=== PATIENT | male | born 1960 | race Caucasian/White ===

== ENCOUNTER 2023-12-16 14:45 | Inpatient (IN) | payer OTHER, SELFPAY ==
[2023-12-16] VITALS (30 sets, daily range): BP systolic 160–204; BP diastolic 84–121; PULSE 70–96; RESP 0–18; TEMP 36.2–36.7; O2SAT 94–98; BMI 31.2; BMI 31.3
--- NOTE | 2023-12-16 | CRLHL7_ITS ---
For Patients: As a result of the Century Cures Act, medical imaging exams and procedure reports are released immediately into your electronic medical record. You may view this report before your referring provider. If you have questions, please contact your health care provider. CLINICAL HISTORY: Imbalance; acute neurological deficit. TECHNIQUE: Standard helical CT image acquisition through the neck was performed after intravenous contrast bolus enhancement. 3D and MIP reconstructions were performed at a separate workstation and permanently archived. COMPARISON: None available. FINDINGS: The origins of the great vessels from the aortic arch are patent. The common carotid arteries are patent. There is mild (less than 50 percent) atherosclerotic stenoses of the bilateral proximal ICAs by NASCET criteria. The more distal cervical ICAs are patent. The origins and cervical segments of the vertebral arteries are patent. IMPRESSION: Mild (less than 50 percent) atherosclerotic stenoses of the bilateral proximal ICAs by NASCET criteria. Please note that all CT scans at this facility use dose modulation, iterative reconstruction, and/or weight-based dosing when appropriate to reduce radiation dose to as low as reasonably achievable. Dictated by Nicholas Chavira MD @ 12/17/2023 10:31:13 AM (Electronically Signed)
--- NOTE | 2023-12-16 | CRLHL7_ITS ---
For Patients: As a result of the Century Cures Act, medical imaging exams and procedure reports are released immediately into your electronic medical record. You may view this report before your referring provider. If you have questions, please contact your health care provider. CLINICAL HISTORY: Imbalance; acute neurological deficit. TECHNIQUE: Standard helical CT image acquisition through the head following the administration of intravenous contrast was performed. 3D and MIP reconstructions were performed at a separate workstation and permanently archived. COMPARISON: None available. FINDINGS: No intracranial proximal large vessel occlusion or flow-limiting luminal stenosis. No evidence of cerebral aneurysm. No findings to suggest an arterial-venous shunting lesion. The major dural venous sinuses and deep venous system are patent. IMPRESSION: No intracranial proximal large vessel occlusion, flow-limiting luminal stenosis, or cerebral aneurysm. Please note that all CT scans at this facility use dose modulation, iterative reconstruction, and/or weight-based dosing when appropriate to reduce radiation dose to as low as reasonably achievable. Dictated by Nicholas Chavira MD @ 12/17/2023 10:32:45 AM (Electronically Signed)
--- NOTE | 2023-12-16 | CRLHL7_ITS ---
For Patients: As a result of the Century Cures Act, medical imaging exams and procedure reports are released immediately into your electronic medical record. You may view this report before your referring provider. If you have questions, please contact your health care provider. Indication : Balance issues. Technique : CT of the brain without intravenous contrast. Comparison: None relevant available at the time of interpretation. Findings: No acute blurring of the vazquez-white differentiation. There is no intracranial hemorrhage. The ventricles are proportionate to the cerebral sulci. The 4th ventricle is midline. Basal cisterns appear patent. No abnormal extra-axial fluid collection identified. Mild parenchymal volume loss. There is mild patchy periventricular hypodensity, favored to represent chronic ischemic microvascular disease. There is no intracranial mass, mass effect or midline shift identified. No depressed calvarial fracture. Impression: 1. No acute intracranial process. 2. Mild chronic ischemic microvascular disease. The above findings were communicated over the telephone with Dr. Wagoner by Dr. Carlos at 1525 hours on 12/16/2023. Please note that all CT scans at this facility use dose modulation, iterative reconstruction, and/or weight-based dosing when appropriate to reduce radiation dose to as low as reasonably achievable. Dictated by Benito Carlos MD @ 12/16/2023 3:28:15 PM (Electronically Signed)
--- NOTE | 2023-12-16 15:01 | ED.NEUROSD ---
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 Isak was taking his dogs out and had sat down on a bench and when he got up he had weakness in his left leg. His balance seemed to be off as well according to his significant other. The left sided symptoms persist and it is now approximately 5-1/2 hours since initial onset. He denies a headache visual changes chest pain shortness of breath loss of bowel or bladder control. He does not have any back pain or headache. He has not had any recent injury to his back. Related Data Home Medications ?Medication ?Instructions ?Recorded ?Confirmed cetirizine 10 mg capsule (Zyrtec) 10 mg PO QDAY PRN 03/06/22 03/06/22 levothyroxine 100 mcg capsule 100 mcg PO QDAY 03/06/22 03/06/22 liothyronine 5 mcg tablet 5 mcg PO QDAY 03/06/22 03/06/22 Allergies Allergy/AdvReac Type Severity Reaction Status Date / Time hydrocodone Allergy itch Verified 12/16/23 15:07 Review of Systems Status of ROS: Reports: 10 or more systems reviewed and unremarkable except as noted in History and below [facility] Medical History (Updated 12/16/23 @ 18:25 by Annie Cisneros PA-C) History of gastrostomy tube placement Squamous cell carcinoma Arthritis ?M19.90 - Unspecified osteoarthritis, unspecified site (ICD-10) Hypothyroid ?E03.9 - Hypothyroidism, unspecified (ICD-10) Surgical History History of tonsillectomy ?Z90.89 - Acquired absence of other organs (ICD-10) History of right hip replacement ?Z96.641 - Presence of right artificial hip joint (ICD-10) H/O hernia repair ?Z98.890 - Other specified postprocedural states (ICD-10) ?Z87.19 - Personal history of other diseases of the digestive system (ICD-10) Social History What is your current living situation?: I presently have a place to live Problems where you live: no known problems Problems where you live details: none In the past 12 months, utilities in danger of being shut off: no In past 12 months, lack of transportation kept you from medical appts, meetings, work, or getting things needed for daily living: no In the past 12 mos, have been you worried that your food would run out before you had money to buy more?: never true In the past 12 mos, the food you bought just didn't last and you didn't have money to buy more?: never true Smoking Status: Never smoker How often do you have a drink containing alcohol: 2-3 times a week Alcohol type: hard liquor How often do you have six or more drinks on one occasion: Weekly AUDIT-C Alcohol total score: 6 Non-prescribed substance use: denies use How often does anyone, including family, friends and others, physically hurt you: never How often does anyone, including family, friends and others, insult or talk down to you: never How often does anyone, including family, friends and others, threaten you with harm: never How often does anyone, including family, friends and others, scream or curse at you: never service: Yes Exam Narrative: Exam Narrative: Alert and oriented. No acute distress. EOM is full. Face symmetrical. Neck with multiple scars. Heart with a regular rate and rhythm. Lungs are clear bilaterally. Abdomen is soft and nontender. Lower extremities are with good pedal pulses and are warm. Upper extremity strength intact 5/5. Lower extremity plantar flexion decreased strength 4/5. Subtle ataxia of left leg with heel to sebastian. No unusual calf swelling. Palpation of lower back without discomfort. NIH SS 2 Const: Vital Signs, click to edit/add: Vital Signs - 24 hr 12/16/23 14:50 12/16/23 14:51 12/16/23 14:54 Temperature 97.3 F L Pulse Rate 90 92 Pulse Rate [Pulse Oximeter] 88 Respiratory Rate 18 Blood Pressure 204/121 H Blood Pressure [Ri ght Upper Arm] 204/121 H Pulse Oximetry 96 95 95 Oxygen Delivery Me thod Room Air 12/16/23 15:08 12/16/23 15:12 12/16/23 15:15 Temperature Pulse Rate 96 88 88 Pulse Rate [Pulse Oximeter] Respiratory Rate Blood Pressure 198/114 H Blood Pressure [Ri ght Upper Arm] Pulse Oximetry 97 95 96 Oxygen Delivery Me thod 12/16/23 15:16 12/16/23 15:22 12/16/23 15:23 Temperature Pulse Rate 89 83 85 Pulse Rate [Pulse Oximeter] Respiratory Rate Blood Pressure 180/101 H 175/103 H Blood Pressure [Ri ght Upper Arm] Pulse Oximetry 96 94 94 Oxygen Delivery Me thod 12/16/23 15:30 12/16/23 15:31 12/16/23 15:45 Temperature Pulse Rate 80 78 75 Pulse Rate [Pulse Oximeter] Respiratory Rate 0 L Blood Pressure 169/92 H Blood Pressure [Ri ght Upper Arm] Pulse Oximetry 94 95 96 Oxygen Delivery Me thod Room Air 12/16/23 15:46 12/16/23 15:48 12/16/23 16:00 Temperature Pulse Rate 75 75 73 Pulse Rate [Pulse Oximeter] Respiratory Rate 16 Blood Pressure 188/108 H Blood Pressure [Ri ght Upper Arm] Pulse Oximetry 96 94 95 Oxygen Delivery Me thod Room Air 12/16/23 16:01 12/16/23 16:16 12/16/23 16:24 Temperature Pulse Rate 78 77 Pulse Rate [Pulse Oximeter] Respiratory Rate Blood Pressure 168/84 H 188/107 H Blood Pressure [Ri ght Upper Arm] Pulse Oximetry 96 98 Oxygen Delivery Me thod 12/16/23 16:25 12/16/23 16:30 12/16/23 16:32 Temperature Pulse Rate 75 77 73 Pulse Rate [Pulse Oximeter] Respiratory Rate Blood Pressure 185/106 H 172/96 H Blood Pressure [Ri ght Upper Arm] Pulse Oximetry 97 95 96 Oxygen Delivery Me thod 12/16/23 16:45 12/16/23 16:46 Temperature Pulse Rate 80 82 Pulse Rate [Pulse Oximeter] Respiratory Rate Blood Pressure 160/121 H Blood Pressure [Ri ght Upper Arm] Pulse Oximetry 97 95 Oxygen Delivery Me thod Documenting provider has reviewed patient's vital signs: yes Course Course ED Course: Differential diagnosis does include CVA, metastases, intracranial bleed, migraine,. Patient seen immediately and immediately went to CT. CT/CTA ordered. Although outside of the 4-1/2 hour window patient still could be a candidate for thrombectomy if appropriate. Upon return, patient be placed on monitor, EKG done. CBC, comprehensive, CRP, urinalysis ordered. Saline lock placed. Spoke to Dr. Wagoner neurology does not feel that the symptoms fit with any specific distribution in the brain but notes that patient should be admitted for MRI tomorrow. Will give patient aspirin [address] is without evidence of bleed. Reevaluation(s) Reevaluation #1: Head CT without evidence of bleed per Radiology report. Aspirin [address] Wagoner, neurologist, did see patient via tele neurology screen. At this time he does suggest admission with MRI of the brain and lumbar spine tomorrow. Laboratory values reassuring with a normal white count hemoglobin electrolyte panel and CRP. Urinalysis normal. Vital Signs Vital signs: Initial Vital Signs Pulse Rate 90 12/16/23 14:50 Blood Pressure 204/121 H 12/16/23 14:50 Blood Pressure Mean 148 H 12/16/23 14:50 Pulse Oximetry 96 12/16/23 14:50 Vital Signs Pulse Rate 90 12/16/23 14:50 Blood Pressure 204/121 H 12/16/23 14:50 Pulse Oximetry 96 12/16/23 14:50 Temperature 98 F 12/16/23 19:45 Pulse Rate 77 12/16/23 19:48 Respiratory Rate 16 12/16/23 19:45 Blood Pressure 179/105 H 12/16/23 19:45 Pulse Oximetry 95 12/16/23 19:45 Oxygen Delivery Method Room Air 12/16/23 19:45 Medications Administered Medications: Generic Name Dose Route Start Last Admin Trade Name Freq PRN Reason Stop Dose Admin Sodium Chloride 5 ml 12/16/23 21:00 12/16/23 21:12 Sodium Chloride 0.9 % (Flush) 10 Ml Syringe IVF 5 ml BID AARTI Administration Discontinued Medications Generic Name Dose Route Start Last Admin Trade Name Freq PRN Reason Stop Dose Admin Aspirin 324 mg 12/16/23 15:59 12/16/23 17:07 Aspirin 81 Mg Tab.Chew PO 12/16/23 16:00 324 mg ONCE ONE Administration MDM - Neuro Symptoms/Deficit MDM Narrative Medical decision making narrative: 1. Left-sided neurological complaints-patient had the sudden onset of left leg numbness posterior to foot with weakness of plantar flexion in associated with a tingling or numb feeling in the left arm at approximately 0930 hours. He presented after 5-1/2 hours of symptoms and went immediately to CT which was reassuring. CT CTA without evidence of acute stroke. However given symptoms neurology did see patient and have suggested MRI of the brain and lumbar spine tomorrow. Aspirin 325 mg p.o. given and patient will be admitted under the care of hospitalist ALLAN Cisneros. 2. Status post squamous cell carcinoma head neck-no evidence of metastases on CT. 3. Hypertension-initial blood pressures greater than 200 systolic. These have gradually decreased and we are now at 168 systolic. No medications were given to bring this blood pressure down. No presenting headache or visual changes. 3. Disposition-admit to the floor. MRI of the brain and lumbar spine ordered for tomorrow Lab Data Attestation: I reviewed the patient's lab results. Labs: Lab Results 12/16/23 12/16/23 12/16/23 Range/Units 15:04 15:46 16:51 WBC 5.18 (4.50-11.00) K/uL RBC 5.24 (4.30-5.90) m/uL Hgb 15.7 (13.5-17.5) gm/dL Hct 48.0 (37.0-53.0) % MCV 92 (80-100) fL MCH 30 (26-34) pg MCHC 33 (32-36) gm/dL RDW Coeff of Yosvany 12.6 (11.5-15.5) % Plt Count 228 (140-440) K/uL Neut % (Auto) 54.3 (42.0-72.0) % Lymph % (Auto) 25.9 (20-44) % Cheshire % (Auto) 15.3 H (0.0-11.0) % Eos % (Auto) 3.3 (0.0-7.0) % Baso % (Auto) 1.0 (0.0-3.0) % Neut # (Auto) 2.82 (1.7-7.0) K/uL Lymph # (Auto) 1.34 (0.90-2.90) K/uL Cheshire # (Auto) 0.80 (0.00-0.90) K/UL Eos # (Auto) 0.17 (0.00-0.50) K/uL Baso # (Auto) 0.05 (0.00-0.30) K/uL Abs Immat Gran (auto) 0.01 (0.00-0.30) K/uL Imm/Tot Granulo (auto) 0.2 % Sodium 140 (135-149) mmol/L Potassium 3.8 (3.6-5.1) mmol/L Chloride 105 (96-114) mmol/L Carbon Dioxide 28 (20-32) mmol/L Anion Gap 7 (7-15) mEq/L BUN 23 (7-30) mg/dL Creatinine 1.5 (0.5-1.5) mg/dL Estimated Creat Clear 56.76 Estimated GFR 53 ml/min Glucose 99 (60-115) mg/dL Calcium 9.5 (8.4-10.6) mg/dL Total Bilirubin 0.4 (0.1-1.5) mg/dL AST 46 H (12-35) U/L ALT 36 (4-50) U/L Alkaline Phosphatase 74 (40-150) U/L C-Reactive Protein < 0.5 L (0.5-1.0) mg/dL Total Protein 6.9 (6.0-8.3) g/dL Albumin 4.1 (3.3-5.0) g/dL TSH 2.110 (0.270-4.200) uIU/mL Urine Color Yellow (Yellow) Urine Appearance Clear (Clear) Urine pH 7.5 (5.0-8.5) Ur Specific Snook 1.015 (1.000-1.030) Urine Protein Negative (Negative) Urine Glucose (UA) Negative (Negative) Urine Ketones Negative (Negative) Urine Blood Negative (Negative) Urine Nitrite Negative (Negative) Urine Bilirubin Negative (Negative) Urine Urobilinogen 0.2 (0.2-1.0) Ur Leukocyte Esterase Negative (Negative) Urine RBC 0-2 (0-2) Urine WBC 0-2 (0-5) Ur Squamous Epith Cells None (None-Few) Urine Bacteria None (None) SARS-CoV-2 (PCR) Negative SARS-CoV-2 (Negative) Influenza Type A (PCR) Negative PCR FLU A (Negative) Influenza Type B (PCR) Negative PCR FLU B (Negative) RSV (PCR) Negative PCR RSV (Negative) Imaging Data CT scan - head: Attestation: I have reviewed the pertinent imaging results. My impression: By my read I do not note any intracranial bleed. Radiologist's impression: No acute blurring of the vazquez-white differentiation. There is no intracranial hemorrhage. The ventricles are proportionate to the cerebral sulci. The 4th ventricle is midline. Basal cisterns appear patent. No abnormal extra-axial fluid collection identified. Mild parenchymal volume loss. There is mild patchy periventricular hypodensity, favored to represent chronic ischemic microvascular disease. There is no intracranial mass, mass effect or midline shift identified. No depressed calvarial fracture. Impression: 1. No acute intracranial process. 2. Mild chronic ischemic microvascular disease. Head and neck angio+: Attestation: I have reviewed the pertinent imaging results. Radiologist's impression: CTA head: No proximal intracranial arterial occlusions, filling defects or high-grade stenoses. CTA neck: Mild atherosclerotic disease. No occlusion or dissection. The above findings were communicated over the telephone with Dr. Wagoner by Dr. Carlos at 1525 hours on 12/16/2023. ECG Data Attestation: I personally reviewed and interpreted this ECG as follows: ECG interpretation date: 12/16/23 Interpretation: ML EKG by my read shows sinus rhythm at a rate of 87. I do not note any acute ST or T-wave changes. QT and OH intervals within normal limits. Discharge Plan Discharge Clinical Impression: Left leg weakness Patient Disposition: Admitted As Observation Condition: Unchanged
--- OUTSIDE RECORDS SUMMARY | 2023-12-16 15:16 | XMS_ITS | Encounter Summary ---
Author Organization [employer] Address [address] [place] [address] Care Team Providers Care Clip On Sunglasses Inspector Name Role Phone Unavailable Primary Care Provider Unavailabl e Reason for Visit * Reason Comments Refill levothyroxine (SYNTH ROID) 100 MCG tablet [Pharmacy Med Name: Levothyroxine Sodium Oral Tablet 100 MCG] Encounter Details Date Type Department Care Team (Late st Contact Info) Description 10/02/2023 Refill [facility] [address] [place] [address] Magi Panchal MB [address] [place] [address] Refill (levothyroxine (SYNTHROID) 100 MCG tablet [Pharmacy Med Name: Levothyroxine Sodium Oral Tablet 100 MCG]) Social History Tobacco Use Types Packs/Day Years Used Date Smoking Tobacco: Never Smokeless Tobacco: Never Alcohol Use Standard Drinks/Week Comments Yes 1 (1 standard drink = 0.6 oz pur e alcohol) Sex and Gender Information Value Date Recorded Sex Assigned at Not on file Gender Identity Not on file Sexual Orientation Not on file documented as of this encounter Nursing Notes * Lisa Zarate RN - 10/05/2023 1:27 PM CDT Renewed medication per medication refill standing order. Requested Prescriptions Signed Prescriptions Disp Refills levothyroxine (SYNTHROID) 100 MCG tablet 30 Tablet 0 Sig: Take 1 Tablet (100 mcg) by mouth daily. Needs appointment Authorizing Provider: MAGI PANCHAL Ordering User: LISA ZARATE * Jennifer Covarrubias - 10/03/2023 4:41 PM CDT VML and MyChart mess. Sent reminding pt. To schedule f/u appt. For rx to be refilled. Rt. To afternoon nanny for rx refills. * Lisa Zarate RN - 10/03/2023 2:17 PM CDT Frontline: Please help patient schedule appointment and route back to nursing refill when scheduled. Thanks. * Gasper Gonzalez Xrwcomm - 10/02/2023 7:44 PM CDT levothyroxine (SYNTHROID) 100 MCG tablet [Pharmacy Med Name: Levothyroxine Sodium Oral Tablet 100 MCG] Hypothyroidism -> An office visit is overdue (performed over 13 months ago, required every 12 months). -> TSH is overdue (performed 14 months ago, required every 12 months) -> Refill x 3 months (courtesy refill. overdue for an office visit and TSH check) Last qualifying visit: 08/30/2022 (in [facility]) Next scheduled visit: None Last ordered by MAGI PANCHAL: 08/30/2022 (398 days ago) QTY: 90, Refills: 3, Sig: take 1 tab daily (changed but equivalent) TSH: 1.58 mIU/L on 08/21/2022 [facility] Embedded Refills, Reference: [id number], 10/02/2023 7:44:53 PM CDT, Pool: AMELIA WOOREFJILLIAN ([id number]) documented in this encounter Plan of Treatment Not on file documented as of this encounter Visit Diagnoses Diagnosis Primary hypothyroidism (HRC) Unspecified hypothyroidism documented in this encounter
--- OUTSIDE RECORDS SUMMARY | 2023-12-16 15:16 | XMS_ITS | Encounter Summary ---
Author Organization [employer] Address [address] [place] [address] Care Team Providers Care Cloud Infrastructure Architect Name Role Phone Unavailable Primary Care Provider Unavailabl e Reason for Visit * Reason Comments Refill liothyronine (CYTOME L) 5 MCG tablet [Pharmacy Med Name: Liothyronine Sodium Oral Tablet 5 MCG] Encounter Details Date Type Department Care Team (Late st Contact Info) Description 10/11/2023 Refill [facility] [address] [facility] [place] [address] Magi Panchal, [facility] [address] [place] [address] Refill (liothyronine (CYTOMEL) 5 MCG tablet [Pharmacy Med Name: Liothyronine Sodium Oral Tablet 5 MCG]) Social History Tobacco Use Types Packs/Day Years Used Date Smoking Tobacco: Never Smokeless Tobacco: Never Alcohol Use Standard Drinks/Week Comments Yes 1 (1 standard drink = 0.6 oz pur e alcohol) Sex and Gender Information Value Date Recorded Sex Assigned at Not on file Gender Identity Not on file Sexual Orientation Not on file documented as of this encounter Nursing Notes * Ruben Mackenzie RN - 10/24/2023 9:30 AM CDT Please advise on refill. LV: 08/30/22. FV: None. Frontline has been unable to reach patient to schedule future visit. Courtesy refill given on 10/02/23 * Pepper Tidwell - 10/12/2023 2:18 PM CDT LVM/MCM for pt to schedule * Maggi Downing RN - 10/12/2023 10:31 AM CDT Call pt; assist him to schedule a follow up appt as he is overdue to be seen. Return to pool once appt has been made. * Gasper Gonzalezwaarti - 10/11/2023 2:02 AM CDT liothyronine (CYTOMEL) 5 MCG tablet [Pharmacy Med Name: Liothyronine Sodium Oral Tablet 5 MCG] Hypothyroidism - liothyronine -> An office visit is overdue (performed 14 months ago, required every 12 months). -> TSH is overdue (performed 14 months ago, required every 12 months) -> Refill x 3 months (courtesy refill. overdue for an office visit and TSH check) Last qualifying visit: 08/30/2022 (in [facility]) Next scheduled visit: None Last ordered by MAGI PANCHAL M: 08/30/2022 (407 days ago) QTY: 90, Refills: 3, Sig: take 1 tablet (5 mcg) by mouth daily. (changed but equivalent) TSH: 1.58 mIU/L on 08/21/2022 [facility] Embedded Refills, Reference: [id number], 10/11/2023 2:01:59 AM MARY, Segundo MARROQUIN ([id number]) documented in this encounter Plan of Treatment Not on file documented as of this encounter Visit Diagnoses Not on filedocumented in this encounter
--- OUTSIDE RECORDS SUMMARY | 2023-12-16 15:16 | XMS_ITS | Clinical Summary ---
Author Organization [facility] Address [address] [place] [address] Care Team Providers Care Bench Technician Name Role Phone Elsewhere, Pcp Primary Care Provider Unavailabl e Source Comments Patient records contain information from all sites at [facility]. For routine questions regarding patient records, call [phone] during business hours, M-F 8:00 AM - 5:00 PM Central Time. Record requests for emergency care only can be directed to [phone] at any time.[facility] Allergies Active Allergy Reactions Criticality Noted Date Comments Hydrocodone-Acetaminophen Itching 03/16/2010 Medications cetirizine (for_ZyrTEC) 10 mg tablet Take 10 mg by mouth daily. 7 Active MULTIVITAMIN ORAL Take 1 tablet by mouth daily. 7 Active levothyroxine (for_SYNTHROID, LEVOTHROID) 100 mcg tablet Take 100 mcg by mouth daily. 7 Active omeprazole (PriLOSEC) [address] capsule Take 20 mg by mouth as needed. Active liothyronine (CYTOMEL) 5 mcg tablet Take 5 mcg by mouth daily. 1 Active ondansetron (ZOFRAN) 4 mg tablet Take 4 mg by mouth as needed. 0 Active tamsulosin (FLOMAX) 0.4 mg 24 hr capsule TAKE ONE CAPSULE BY MOUTH ONE TIME DAILY 90 capsule 2 Active Additional Information Patient not taking.Reported on 03/06/2022 Active Problems Problem Noted Date Diagnosed Date Cyst Epididymus 05/03/2020 Benign Prostatic Hyperplasia Without Obstruction 05/03/2020 Hydrocele 05/03/2020 Pain Hip Right 09/02/2019 Overview (09/02/2019): Added automatically from request for surgery [id number] Infertility Male 09/02/2019 Overview (09/02/2019): Added automatically from request for surgery [id number] Hoarseness Chronic 04/24/2018 Dysphagia 04/24/2018 Other Specified Hypothyroidism 01/22/2017 Overview (01/22/2017): Iatrogenic, secondary to EBRT Elevated Creatinine 01/22/2017 Malignant Neoplasm Of Head Face And Neck 017 Social History Tobacco Use Types Packs/Day Years Used Date Smoking Tobacco: Never Smokeless Tobacco: Never Alcohol Use Standard Drinks/Week Comments Yes 0 (1 standard drink = 0.6 oz pur e alcohol) Nutrition Answer Date Recorded Nutrition: EVOO Fat Source Unknown 04/02 Nutrition: Servings of Fruits/Vegetables per Day Not on file 04/02/2020 Dental Answer Date Recorded Dental: Regular Dentist Unknown 04/02/19 21 Sex and Gender Information Value Date Recorded Sex Assigned at Not on file Legal Sex Male 11:26 PM DATABASE COORDINATOR Gender Identity Not on file Sexual Orientation Not on file Last Filed Vital Signs Vital Sign Reading Time Taken Comments Blood Pressure 121/87 04/10/2022 10:00 AM DATABASE COORDINATOR Pulse 68 04/10/2022 10:00 AM DATABASE COORDINATOR Temperature 36.7 ??C (98.1 ??F) 04/10/2022 10:[address] Respiratory Rate 21 04/10/2022 10:00 AM DATABASE COORDINATOR Oxygen Saturation 98% 04/10/2022 10:00 AM DATABASE COORDINATOR Inhaled Oxygen Concentration - - Weight 105 kg (231 lb) 04/10/2022 8:27 AM DATABASE COORDINATOR Height 182.9 cm (6') 04/10/2022 8:27 AM DATABASE COORDINATOR Body Mass Index 31.33 04/10/2022 8:27 AM DATABASE COORDINATOR Plan of Treatment Health Maintenance Due Date Last Done Comments CT Colonography 1960 FIT 1960 HIV Screening 1960 Hepatitis C Screening 1960 T4 (Thyroxine) lab test 1960 Zoster Vaccines (1 of 2) 2012 IPV Vaccines (2 of 3 - Adult catch-up series) 04/16/2014 03/19/2014 Depression Screening (Annual PHQ-2) 02/12/2023 COVID-19 Vaccine ( - season) 2023 11/29/2020, 02/25/2020, 01/30/2020 Influenza Vaccine (#1) 2023 , 11/29/2020, 11/22/2018, Additional history exists Fasting Glucose for Diabetes Screening 09/05/2025 09/05/2022, 03/06/2022, 03/17/2020, Additional history exists Cologuard 10/03/2025 10/03/2022 Lipid (Cholesterol) Screening 09/06/2027 09/05/2022 Colonoscopy 04/10/2032 04/10/2022 Colorectal Cancer Screening 04/10/2032 DTaP,Tdap,and Td Vaccines (3 - Td or Tdap) 09/05/2032 09/05/2022, 04/20/2007 Pneumococcal vaccine (0-64 years) Aged Out 12/17/2014, 03/19/2014 No longer eligibl e based on patient's age to complete this topic Procedures Procedure Name Priority Date/Time Associated Diagnosis Comments COLONOSCOPY 04/10/2022 9:18 AM DATABASE COORDINATOR COMPREHENSIVE METABOLIC PANEL, S/P Routine 03/06/2022 8:15 AM DATABASE COORDINATOR Malignant Neoplasm Of Head Face And Neck (HCC) from Last 3 Months or Most Recently Relevant to Health Maintenance Results * COLONOSCOPY (04/10/2022 9:18 AM DATABASE COORDINATOR) Narrative Procedure Note Juan Miguel Becker M.B.BIsiahS. - 04/10/2022 9:18 AM CST [facility] GI Patient Name: Isak Retanasurinder Procedure Date: 04/10/2022 9:18 AM Date of : 1960 Age: 61 Gender: Male Procedure: Colonoscopy Providers: KEYSHAWN Pagan, Elenita Nance (Ordering Provider) Referring Provider: Elenita Nance Pre-op Diagnoses: Screening for colorectal malignant neoplasm Post-op Diagnoses: - Preparation of the colon was inadequate. - Hemorrhoids found on perianal exam. - Stool in the entire examined colon. - Diverticulosis in the sigmoid colon. There was no evidence of diverticular bleeding. - No specimens collected. Recommendation: - Await pathology results. - Continue present medications. - No aspirin, ibuprofen, naproxen, or other non-steroidal anti-inflammatory drugs for 1 week. - Resume previous diet. - Repeat colonoscopy at the next available appointment because thebowel preparation was poor. - Return to referring physician as previously scheduled. - Patient has a contact number available for emergencies. The signsand symptoms of potential delayed complications were discussed with the patient. Return to normal activities tomorrow. Written discharge instructions were provided to the patient. Findings: Hemorrhoids were found on perianal exam. A large amount of liquid solid stool was found in the entire colon, precluding visualization. A few small-mouthed diverticula were found in the sigmoid colon.There was no evidence of diverticular bleeding. Medicines: See the Anesthesia note for documentation of the administeredmedications Estimated Blood Loss: Estimated blood loss: none. Complications: No immediate complications. Estimated blood loss: None. Procedure Details: The patient was seen, evaluated, and history reviewed. Airway and heart and lung exams were performed and were satisfactory for plannedsedation care. The risks, benefits and alternatives for the procedure and sedation were discussed andinformed consent was obtained. A procedural pause was conducted in the presence of assisting personnelto verify the correct patient identity and procedureto be performed. Throughout the procedure, the patient's blood pressure, pulse, and oxygen saturations were monitored continuously. The Colonoscope was introduced under directvision through the anus and advanced to the cecum, identified by appendiceal orifice and ileocecal valve. The colonoscopy was performed without difficulty. The patient tolerated the procedure well. The quality of the bowel preparation was evaluated using the BBPS ([place] BowelPreparation Scale) with scores of: Right Colon = 0(unprepared, mucosa not seen due to solid stool that cannot be cleared or unseen proximal colon segment in a colonoscopy aborted due to inadequate bowelprep), Transverse Colon = 0 (unprepared, mucosa not seen due to solid stool that cannot be cleared orunseen proximal colon segment in a colonoscopy aborteddue to inadequate bowel prep) and Left Colon = 0 (unprepared, mucosa not seen due to solid stoolthat cannot be cleared or unseen proximal colonsegment in a colonoscopy aborted due to inadequate bowel prep). The total BBPS score equals 0. The qualityof the bowel preparation was inadequate. Scope insertion time was 4 minutes. Scope withdrawaltime was 5 minutes. Sedation: Anesthesia was administered by an anesthesia professional. Thefollowing parameters were monitored: oxygen saturation, heart rate, blood pressure, respiratory rate, EKG, adequacy of pulmonary ventilation,and response to care. KEYSHAWN Pagan 04/10/2022 9:23:35 AM This report has been signed electronically. Number of Addenda: 0 Note Initiated On: 04/10/2022 9:18 AM Elenita Nance M.D. GI PROCEDURE ORDERABLES Final Result * (ABNORMAL) Comprehensive Metabolic Panel (03/06/2022 8:15 AM DATABASE COORDINATOR) Potassium, P 4.8 3.6 - 5.2 mmol/L 03/06/2022 8:43 AM DATABASE COORDINATOR NPRG Sodium, P 144 135 - 145 mmol/L 03/06/2022 8:43 AM DATABASE COORDINATOR NPRG Chloride, P 107 98 - 107 mmol/L 03/06/2022 8:43 AM DATABASE COORDINATOR NPRG Bicarbonate, P 28 22 - 29 mmol/L 03/06/2022 8:43 AM DATABASE COORDINATOR NPRG Anion Gap, P 9 7 - 15 03/06/2022 8:43 AM DATABASE COORDINATOR NPRG BUN (Blood Urea Nitrogen), P 28(H) 8 - 24 mg/dL 03/06/2022 8:43 AM DATABASE COORDINATOR NPRG Creatinine 1.66(H) 0.74 - 1.35 mg/dL 03/06/2022 8:43 AM DATABASE COORDINATOR NPRG Estimated GFR (eGFR) 47(L) >=60 mL/min/BS A 03/06/2022 8:43 AM DATABASE COORDINATOR NPRG Comment: Estimated GFR calculated using the 2020 CKD_EPI creatinine equation. Calcium, Total, P 9.9 8.6 - 10.0 mg/dL 03/06/2022 8:43 AM DATABASE COORDINATOR NPRG Glucose, P 112 70 - 140 mg/dL 03/06/2022 8:43 AM DATABASE COORDINATOR NPRG Protein, Total, P 7.2 6.3 - 7.9 g/dL 03/06/2022 8:43 AM DATABASE COORDINATOR NPRG Albumin, P 4.2 3.5 - 5.0 g/dL 03/06/2022 8:43 AM DATABASE COORDINATOR NPRG Aspartate Aminotransferase (AST), P 35 8 - 48 U/L 03/06/2022 8:43 AM DATABASE COORDINATOR NPRG Alkaline Phosphatase, P 83 40 - 129 U/L 03/06/2022 8:43 AM DATABASE COORDINATOR NPRG Alanine Aminotransferase (ALT), P 31 7 - 55 U/L 03/06/2022 8:43 AM DATABASE COORDINATOR NPRG Bilirubin, Total, P 0.4 <=1.2 mg/dL 03/06/2022 8:43 AM DATABASE COORDINATOR NPRG Blood (Blood, Venous) 03/06/2022 8:15 AM DATABASE COORDINATOR 03/06/2022 8:18 AM DATABASE COORDINATOR Elenita Nance M.D. LAB BLOOD ADD-ON Final Result [facility] [address] [place] [address], [facility] NPRG [facility] [address] [place] [address] from Last 3 Months or Most Recently Relevant to Health Maintenance Insurance Care Teams Bench Technician Relationship Specialty Start Date End Date Elsewhere, Pcp PCP - General Internal Medicine 04/10/22
--- OUTSIDE RECORDS SUMMARY | 2023-12-16 15:16 | XMS_ITS ---
Author Organization [facility] Address [address] [place] [address] Care Team Providers Care Beekeeper Name Role Phone Unavailable Unavailable Unavailable Surgery Details Not on file Complications Check Surgery Details section. Procedure Estimated Blood Loss Check Surgery Details section. Procedure Findings Check Surgery Details section. Procedure Specimens Taken Check Surgery Details section.
--- OUTSIDE RECORDS SUMMARY | 2023-12-16 15:16 | XMS_ITS | Clinical Summary ---
Author Organization [facility] Address [place] [address] Care Team Providers Care Chief Operations Officer Name Role Phone [place] Primary Care Provider Allergies Active Allergy Reactions Criticality Noted Date Comments Hydrocodone-Acetaminophen Itching 03/16/2010 Medications Medication Sig Dispensed Refills Start Date End Date Status cetirizine (ZYRTEC) 10 mg tablet Take 1 tablet by mouth once daily. 0 11/05/2012 Active multivitamin (MULTI-DAY) tablet Take 1 tablet by mouth once daily. 0 11/05/2012 Active omeprazole (PRILOSEC) 20 mg Delayed-Release capsule Take 20 mg by mouth once daily before a meal. Active liothyronine (CYTOMEL) 5 mcg tablet Take 5 mcg by mouth once daily. 05/09/2020 Active levothyroxine (SYNTHROID) 100 mcg tablet Take 1 Tablet by mouth once daily. 08/30/2022 Active LORazepam (ATIVAN) 0.5 mg tab Take 0.5 mg by mouth once daily if needed. 07/03/2022 Active FLUoxetine (PROZAC) 10 mg capsule Take 1 Capsule (10 mg) by mouth once daily. 0 09/05/2022 Active hydrOXYzine HCL (ATARAX) 25 mg tabletIndications:Adj ustment disorder with depressed mood TAKE ONE TABLET BY MOUTH EVERY SIX HOURS NEEDED FOR ANXIETY 25 Tablet 12/14/2022 Active Active Problems Problem Noted Date Diagnosed Date Mallet finger of right hand 09/05/2022 Status post right hip replacement 09/05/2022 Adjustment disorder with depressed mood 07/04/19 23 07/03/2022 Hypothyroidism (acquired) 05/10/2020 Chronic GERD 05/10/2020 BPH without urinary obstruction 05/10/2020 Cancer of neck 12/28/2016 Overview (09/05/2022): Chemo and radiation completed in 2014 Immunizations Name Administration Dates Next Due Adenovirus, Unspecified 03/18/1997 Anthrax Vaccine 03/19/2014, 1,04/08/2008,10/24,10/11/2007,09/19/2007 COVID-19 vaccine ([employer] 30mcg/0.3mL) PF, MDV 11/29/2020,02/25/2020,01/30/2020 Hepatitis A (Adult) 03/11/2000,10/25/1997 Hepatitis B (Adult) 03/11/2000,03/07/1998,1997 Inactivated Polio Vaccine 03/19/2014 Influenza A (H1N1), Inactivated 04/11/2009 Influenza Virus, Unspecified 01/09/2017, 12/13/2016,01/08/2016,11/20,11/16/2013,12/14/2012,10/27/2011 ,12/17/2010,12/01/2010,11/12/2010,11/12,11/26/2008,01/22/2008, 7,01/13/2006,03/05/2005,02/15/2002,05/1997 Influenza, IIV3 (Age >=3 years) 11/12/2013 Influenza, IIV4 11/29/2020,01/14/2018 Influenza, IIV4 (=>6mos) MDV 11/22/2018 Influenza, split (incl. mikal fied surface antigen) 11/27/2009,11/26/2008,01/22/2008,01/18,01/13/2006,03/05/2005 MMR, Unspecified 02/15/2002 Measles-Rubella 03/18/1997 Meningococcal Vaccine (Menomune) 02/15/2002,05/1997 Oral Polio Vaccine 03/18/1997 Pneumococcal Poly,23-Valent (Pneumovax) 03/19/2014 Pneumococcal conj 13-Valent (Prevnar 13) 12/17/2014 Td (Age >=7 Years) 09/05/2022,04/20/2007, 998 Tdap, Unspecified 04/20/2007 Typhoid (injectable) 03/19/2014,06/09/19 11,09/19/2007,11/26,01/16/1998 Typhoid Parenteral,Killed 06/29/2001 Typhoid, Unspecified 03/07/1998 Yellow Fever 10/25/1997 Family History Medical History Relation Name Comments Good Health Brother Cancer-prostate Father Hypertension Father Heart Disease Mother CABG Hypertension Mother Cancer-colon Paternal Grandfather la te 60's or early 70's Good Health Sister 1 Good Health Sister 2 Relation Name Status Comments Brother Father Mother Paternal Grandfather Sister 1 Sister 2 Social History Tobacco Use Types Packs/Day Years Used Date Smoking Tobacco: Never Smokeless Tobacco: Never Tobacco Cessation:Counseling Given: Yes Alcohol Use Standard Drinks/Week Comments Yes 0 (1 standard drink = 0.6 oz pur e alcohol) occ PHQ-2 Answer Date Recorded PHQ-2 TOTAL SCORE 0 09/05/2022 Social Connections Answer Date Recorded Frequency of Communication with Friends and Fami ly Not on file 02/12/2021 Financial Resource Strain Answer Date R ecorded Difficulty of Paying Living Expenses Not on file 02/12/2021 Difficulty of Paying Living Expenses Not on file 02/12/2021 Sex and Gender Information Value Date Recorded Sex Assigned at Not on file Gender Identity Not on file Sexual Orientation Not on file Obstetrics History Last Filed Vital Signs Vital Sign Reading Time Taken Comments Blood Pressure 107/68 09/05/2022 12:54 PM CDT Pulse 77 09/05/2022 12:54 PM CDT Temperature 36.4 ??C (97.5 ??F) 07/02/2021 1 0:43 AM CDT Respiratory Rate 18 07/02/2021 10:4 3 AM CDT Oxygen Saturation 99% 09/05/2022 12: 54 PM CDT Inhaled Oxygen Concentration - - Weight 97.9 kg (215 lb 14.4 oz) 023 12:54 PM CDT Height 182.9 cm (6') 09/05/2022 12:54 PM CDT Body Mass Index 29.28 09/05/2022 12:54 PM CDT Plan of Treatment Health Maintenance Due Date Last Done Comments Zoster (shingles) series for age 50+ (1 of 2) 2012 BMI (ht and wt on same day) for age 18+ 09/06/2023 09/05/2022, 07/03/2022, 05/10/2020, Additional history exists Depression screening for age 12+ 09/09/2023 09/08/2022, 09/05/2022, 07/03/2022, Additional history exists COVID-19 vaccine series ( season) 2023 11/29/2020, 02/25/2020, 01/30/2020 Influenza for age 50-64 10/14/2023 11/30/19 21, 11/22/2018, 01/14/2018, Additional history exists Fecal testing sDNA-FIT (Cologuard) for age 45-75 09/27/2025 09/27/2022 Lipids for age 45-75 09/06/2027 09/05/2022, 03/27/19 14 Tetanus booster 09/05/2032 09/05/2022, 03/0 09/2007, 04/20/2007, Additional history exists Tdap Completed 04/20/2007 Pneumococcal series for age 6-64 Aged Out 12/17/2014, 03/19/2014 No longer eligibl e based on patient's age to complete this topic HIV for age 15-65 Completed 09/05/2022 Hepatitis C screening for age 18-79 Completed 09/05/2022 Procedures Procedure Name Priority Date/Time Associated Diagnosis Comments SDNA-FIT EXTERNAL (COLOGUARD) Routine 09/27/2022 11:00 AM CDT Screening for colon cancer LC HIV-1/O/2, 4TH GENERATION Routine 09/05/2022 1:25 PM CDT Screening for HIV (human immunodeficiency virus) LC HCV ANTIBODY RFX TO QUANT PCR Routine 09/05/2022 1:25 PM CDT Need for hepatitis C screening test LIPID PANEL W REFLEX MEASURED LDL Routine 09/05/2022 1:25 PM CDT Lipid screening from Last 3 Months or Most Recently Relevant to Health Maintenance Results * SDNA-FIT EXTERNAL (COLOGUARD) (09/27/2022 11:00 AM CDT) NONINV COLON CA DNA+OCC BLD SCRN STL-IMP Negative Negative 10/03/2022 8:22 PM CDT [facility] (CLIA #:[id number]) Comment: NEGATIVE TEST RESULT. A negative Cologuard result indicates a low likelihood that a colorectal cancer (CRC) or advanced adenoma (adenomatous polyps with more advanced pre-malignant features) ??is present. The chance that a person with a negative Cologuard test has a colorectal cancer is less than 1 in 1500 (negative predictive value >99.9%) or has an ??advanced adenoma is less than ??5.3% (negative predictive value 94.7%). These data are based on a prospective cross-sectional study of 10,000 individuals at average risk for colorectal cancer who were screened with both Cologuard and colonoscopy. (Artemio Marcum et al, N Engl J Med 2014;370(14):1286- 1297) The normal value (reference range) for this assay is negative. COLOGUARD RE-SCREENING RECOMMENDATION: Periodic colorectal cancer screening is an important part of preventive healthcare for asymptomatic individuals at average risk for colorectal cancer. ??Following a negative Cologuard result, the [place] Cancer Society and U.S. Multi-Society Task Force screening guidelines recommend a Cologuard re-screening interval of 3 years. References: [place] Cancer Society Guideline for Colorectal Cancer Screening: https://www.cancer.org/cancer/cidga-zqfoeq-xonqdo/mxclfqfpe-kynepxuvk-hpvccli/ac s-rec ommendations.html.; Rodrigo DK, Denise CR, rSinivas BarrosK, Colorectal Cancer Screening: Recommendations for Physicians and Patients from the U.S. Multi-Society Task Force on Colorectal Cancer Screening , Am J Gastroenterology 2017; 112:9901-4299. TEST DESCRIPTION: Composite algorithmic analysis of stool DNA-biomarkers with hemoglobin immunoassay. ?? Quantitative values of individual biomarkers are not reportable and are not associated with individual biomarker result reference ranges. Cologuard is intended for colorectal cancer screening of adults of either sex, 45 years or older, who are at average-risk for colorectal cancer (CRC). Cologuard has been approved for use by the U.S. FDA. The performance of Cologuard was established in a cross sectional study of average-risk adults aged 50-84. Cologuard performance in patients ages 45 to 49 years was estimated by sub-group analysis of near-age groups. Colonoscopies performed for a positive result may find as the most clinically significant lesion: colorectal cancer [4.0%], advanced adenoma (including sessile serrated polyps greater than or equal to 1cm diameter) [20%] or non- advanced adenoma [31%]; or no colorectal neoplasia [45%]. These estimates are derived from a prospective cross-sectional screening study of 10,000 individuals at average risk for colorectal cancer who were screened with both Cologuard and colonoscopy. (Artemio Louis al, N Engl J Med 2014;370(14):5700-9211.) Cologuard may produce a false negative or false positive result (no colorectal cancer or precancerous polyp present at colonoscopy follow up). A negative Cologuard test result does not guarantee the absence of CRC or advanced adenoma (pre-cancer). The current Cologuard screening interval is every 3 years. ([place] Cancer Society and U.S. Multi-Society Task Force). Cologuard performance data in a 10,000 patient pivotal study using colonoscopy as the reference method can be accessed at the following location: www.[facility].[place]/results. Additional description of the Cologuard test process, warnings and precautions can be found at www.BitMethodoguard.com. Stool specimen (specimen) (Rectum) 09/27/2022 11:00 AM CDT 09/28/2022 5:55 PM CDT Suzanna Alston DO URINE [facility] (CLIA #:[id number]) [address] [place] [address], * LC HCV ANTIBODY RFX TO QUANT PCR (09/05/2022 1:25 PM CDT) Pathologist [facility] HCV Ab Non Reactive Non Reactive 09/07/2022 12:08 PM CDT [facility] ([facility]) Blood BLOOD SPECIMEN / Unknown Venipuncture / Unknown 09/05/2022 1:25 PM CDT 09/05/2022 1:27 PM CDT Narrative [facility] ([facility]) - 09/07/2022 12:08 PM CDT Performed at: ??[address] - [address] ??[id number] Jeeper Operator: Kody Brewer MD, Phone: ??[phone] Suzanna Alston DO LABORATORY Performing Organization Address City/Va Hospital/ZIP Co de Phone Number [facility] ([facility]) [address] [place] [address], * HIV-1/O/2, 4TH GENERATION (09/05/2022 1:25 PM CDT) Pathologist [facility] HIV Scr 4th Gen Non Reactive Non Reactive 09/07/2022 10:06 PM CDT [facility] ([facility]) Comment: HIV Negative HIV-1/HIV-2 antibodies and HIV-1 p24 antigen were NOT detected. There is no laboratory evidence of HIV infection. Blood BLOOD SPECIMEN / Unknown Venipuncture / Unknown 09/05/2022 1:25 PM CDT 09/05/2022 1:27 PM CDT [facility] ([facility]) - 09/07/2022 10:06 PM CDT Performed at: ??[address] ??[id number] Jeeper Operator: Kody Brewer MD, Phone: ??[phone] Suzanna Alston DO LABORATORY Performing Organization Address City/Va Hospital/ZIP Co de Phone Number [facility] ([facility]) [address] [place] [address], * LIPID PANEL W REFLEX MEASURED LDL (09/05/2022 1:25 PM CDT) CHOLESTEROL,TOTAL 195 100 - 199 mg/dL 09/06/2022 12:41 AM CDT [facility] Comment: Cholesterol, Total Reference Ranges Desirable <200 mg/dL Borderline 200-239 mg/dL High >=240 mg/dL TRIGLYCERIDES 84 <150 mg/dL 09/06/2022 12:41 AM CDT [facility] HDL CHOLESTEROL 60 >40 mg/dL 12:41 AM CDT [facility] NON-HDL CHOLESTEROL 135 <145 mg/dl 09/06/2022 12:41 AM CDT [facility] CHOL/HDL RATIO 3.25 <4.50 09/06/2022 12:41 AM CDT [facility] LDL CHOLESTEROL 118 <=130 mg/dL 09/06/2022 12:41 AM CDT [facility] VLDL CHOLESTEROL 17 <=30 mg/dL 09/06/2022 12:41 AM CDT [facility] PROVIDER ORDERED STATUS RANDOM 09/06/2022 12:41 AM T [facility] Blood BLOOD SPECIMEN / Unknown Venipuncture / Unknown 09/05/2022 1:25 PM CDT 09/05/2022 1:27 PM CDT Suzanna Alston DO CHEMISTRY [facility] [address] [place] [address], [place] from Last 3 Months or Most Recently Relevant to Health Maintenance Care Teams Chief Operations Officer Relationship Specialty Start Date End Date [facility] [place] [address] [place] [phone] PCP - General 09/04/22
--- OUTSIDE RECORDS SUMMARY | 2023-12-16 15:16 | XMS_ITS | Clinical Summary ---
Author Organization [facility] [employer] Address [address] [place] [address] Care Team Providers Care Lighting Engineer Name Role Phone Unavailable Primary Care Provider Unavailabl e Source Comments You are receiving this document as you are listed as the primary care provider,follow-up provider, or the patient has been referred to you for consultation.This is in compliance with the Medicare and[facility] EHR Incentive Program,which states Providers who transition their patient to another setting of careor provider of care or refers their patient to another provider of care shouldprovide summary care record for each transition of care or referral. Patient Feed Allergies No known active allergies Medications Medication Sig Dispensed Refills Start Date End Date Status cetirizine (ZYRTEC) 10 MG tabletIndications:Abn ormal thyroid function test (HRC) Take 1 Tablet (10 mg) by mouth daily. Active Multiple Vitamin (MULTIVITAMINS OR)Indications:Abnorm al thyroid function test (HRC) Active omeprazole (PRILOSEC) 20 MG capsule Take 1 Capsule (20 mg) by mouth. Active tamsulosin (FLOMAX) 0.4 MG CAPS capsule Take 0.4 mg by mouth. 04/01/2020 Active hydrOXYzine HCl (ATARAX) 25 MG tablet Take 1 Tablet (25 mg) by mouth every 6 hours as needed. 07/03/2022 Active LORazepam (ATIVAN) 0.5 MG tablet Take 1 Tablet (0.5 mg) by mouth once as needed. 07/03/2022 Active levothyroxine (SYNTHROID) 100 MCG tabletIndications:Ambika billy hypothyroidism (HRC) Take 1 Tablet (100 mcg) by mouth daily. Needs appointment 30 Tablet 10/05/2023 Active liothyronine (CYTOMEL) 5 MCG tablet take one tablet by mouth one time daily 90 Tablet 10/24/2023 Active Active Problems Problem Noted Date Diagnosed Date Primary hypothyroidism 05/05/2016 Squamous cell carcinoma 05/03/2016 Overview (05/03/2016): Neck S/p chemoradiation, finished in 01/2015. Encounters Date Type Department Care Team Description 10/11/2023 Refill [place] [address] [place] [address]. [place] [address] Raul Panchal MBBS Refill (liothyronine (CYTOMEL) 5 MCG tablet [Pharmacy Med Name: Liothyronine Sodium Oral Tablet 5 MCG]) 10/03/2023 E-Visit [facility] [address] [place] [address]. [place] [address] Mychart, Generic Provider 10/02/2023 Refill [place] [address] [place] [address]. [place] [address] Raul Panchal MBBS Refill (levothyroxine (SYNTHROID) 100 MCG tablet [Pharmacy Med Name: Levothyroxine Sodium Oral Tablet 100 MCG]) from Last 3 Months Social History Tobacco Use Types Packs/Day Years [...] Sign Reading Time Taken Comments Blood Pressure 120/78 08/30/2022 4:36 PM CDT Pulse 75 08/30/2022 4:36 PM CDT Temperature - - Respiratory Rate - - Oxygen Saturation - - Inhaled Oxygen Concentration - - Weight 97.1 kg (214 lb) 08/30/2022 4:36 PM CDT Height 185.4 cm (6' 1) 08/30/2022 4:36 PM CDT Body Mass Index 28.23 08/30/2022 4:36 PM CDT Plan of Treatment Health Maintenance Due Date Last Done Comments Colon Cancer Screening Plan Due 1962 Hep C Screening (Preventive Services) 1962 PSA Screening Discussion 1962 HIV Screening (Preventive Services) 1978 Adult Preventive Visit 1980 Cholesterol 1997 Zoster/Shingles (1 of 2) 2012 DTaP/Tdap/Td (3 - Tdap) 04/19/2017 04/20/19 08, 04/20/2007, 03/18/1997 COVID-19 Vaccine ( season) 2023 11/29/2020, 02/25/2020, 01/30/2020 Influenza (#1) 2023 11/29/2020, 11/12, 01/14/2018, Additional history exists RSV (1 - 1-dose 75+ series) 2037 HepA Aged Out 03/11/2000, 10/25/1997 No lo nger eligible based on patient's age to complete this topic MCV4 Aged Out 02/15/2002, 03/18/1997 No lo nger eligible based on patient's age to complete this topic IPV (Polio) Aged Out 03/19/2014, 03/18/1997 No lo nger eligible based on patient's age to complete this topic Pneumococcal Aged Out 12/17/2014, 03/19/2014 No lo nger eligible based on patient's age to complete this topic HepB Aged Out No longer eligi ble based on patient's age to complete this topic Hib Aged Out No longer eligi ble based on patient's age to complete this topic RSV Aged Out No longer eligi ble based on patient's age to complete this topic
--- OUTSIDE RECORDS SUMMARY | 2023-12-16 15:16 | XMS_ITS | Encounter Summary ---
Author Organization [facility] Address [address] [place] [address] Care Team Providers Care Cutting Machine Tender Decorative Name Role Phone Unavailable Primary Care Provider Unavailabl e Encounter Details Date Type Department Care Team (Late st Contact Info) Description 10/03/2023 E-Visit [facility] Endocr[facility]ology [address] [place] [address] Mychart, [place] [address] Social History Tobacco Use Types Packs/Day Years Used Date Smoking Tobacco: Never Smokeless Tobacco: Never Alcohol Use Standard Drinks/Week Comments Yes 1 (1 standard drink = 0.6 oz pur e alcohol) Sex and Gender Information Value Date Recorded Sex Assigned at Not on file Gender Identity Not on file Sexual Orientation Not on file documented as of this encounter Plan of Treatment Not on file documented as of this encounter Visit Diagnoses Not on filedocumented in this encounter
--- OUTSIDE RECORDS SUMMARY | 2023-12-16 15:16 | XMS_ITS | Referral Summary ---
Author Organization [facility] Address [address] [place] [address] Care Team Providers Care Brooch And Bracelet Maker Name Role Phone Elsewhere, Pcp Primary Care Provider Unavailabl e Source Comments Patient records contain information from all sites at [facility]. For routine questions regarding patient records, call [phone] during business hours, M-F 8:00 AM - 5:00 PM Central Time. Record requests for emergency care only can be directed to [phone] at any time.[facility] Allergies Active Allergy Reactions Criticality Noted Date [...] (09/02/2019): Added automatically from request for surgery [id number] Infertility Male 09/02/2019 Overview (09/02/2019): Added automatically from request for surgery [id number] Hoarseness Chronic 04/24/2018 Dysphagia 04/24/2018 Other Specified [...] on file Legal Sex Male 11:26 PM SENIOR APPLICATION SECURITY CONSULTANT Gender Identity Not on file Sexual Orientation Not on file Last Filed Vital Signs Vital Sign Reading Time Taken Comments Blood Pressure 121/87 04/10/2022 10:00 AM SENIOR APPLICATION SECURITY CONSULTANT Pulse 68 04/10/2022 10:00 AM SENIOR APPLICATION SECURITY CONSULTANT Temperature 36.7 ??C (98.1 ??F) 04/10/2022 10:[address] Respiratory Rate 21 04/10/2022 10:00 AM SENIOR APPLICATION SECURITY CONSULTANT Oxygen Saturation 98% 04/10/2022 10:00 AM SENIOR APPLICATION SECURITY CONSULTANT Inhaled Oxygen Concentration - - Weight 105 kg (231 lb) 04/10/2022 8:27 AM SENIOR APPLICATION SECURITY CONSULTANT Height 182.9 cm (6') 04/10/2022 8:27 AM SENIOR APPLICATION SECURITY CONSULTANT Body Mass Index 31.33 04/10/2022 8:27 AM SENIOR APPLICATION SECURITY CONSULTANT Plan of Treatment Not on file Procedures Procedure Name Priority Date/Time Associated Diagnosis Comments COLONOSCOPY 04/10/2022 9:18 AM SENIOR APPLICATION SECURITY CONSULTANT COMPREHENSIVE METABOLIC PANEL, S/P Routine 03/06/2022 8:15 AM SENIOR APPLICATION SECURITY CONSULTANT 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 - 04/10/2022 9:18 AM CST [facility] Patient Name: Isak Mckeon Procedure Date: 04/10/2022 9:18 AM Date of [...] bowel preparation was evaluated using the BBPS (Tar Heel BowelPreparation Scale) with scores of: Right Colon [...] 0 Note Initiated On: 04/10/2022 9:18 AM us Elenita Nance M.D. GI PROCEDURE ORDERABLES Final Result * (ABNORMAL) Comprehensive Metabolic Panel (03/06/2022 8:15 AM SENIOR APPLICATION SECURITY CONSULTANT) Potassium, P 4.8 3.6 - 5.2 mmol/L 03/06/2022 8:43 AM SENIOR APPLICATION SECURITY CONSULTANT NPRG Sodium, P 144 135 - 145 mmol/L 03/06/2022 8:43 AM SENIOR APPLICATION SECURITY CONSULTANT NPRG Chloride, P 107 98 - 107 mmol/L 03/06/2022 8:43 AM SENIOR APPLICATION SECURITY CONSULTANT NPRG Bicarbonate, P 28 22 - 29 mmol/L 03/06/2022 8:43 AM SENIOR APPLICATION SECURITY CONSULTANT NPRG Anion Gap, P 9 7 - 15 03/06/2022 8:43 AM SENIOR APPLICATION SECURITY CONSULTANT NPRG BUN (Blood Urea Nitrogen), P 28(H) 8 - 24 mg/dL 03/06/2022 8:43 AM SENIOR APPLICATION SECURITY CONSULTANT NPRG Creatinine 1.66(H) 0.74 - 1.35 mg/dL 03/06/2022 8:43 AM SENIOR APPLICATION SECURITY CONSULTANT NPRG Estimated GFR (eGFR) 47(L) >=60 mL/min/BS A 03/06/2022 8:43 AM SENIOR APPLICATION SECURITY CONSULTANT NPRG Comment: Estimated GFR calculated using the 2020 CKD_EPI creatinine equation. Calcium, Total, P 9.9 8.6 - 10.0 mg/dL 03/06/2022 8:43 AM SENIOR APPLICATION SECURITY CONSULTANT NPRG Glucose, P 112 70 - 140 mg/dL 03/06/2022 8:43 AM SENIOR APPLICATION SECURITY CONSULTANT NPRG Protein, Total, P 7.2 6.3 - 7.9 g/dL 03/06/2022 8:43 AM SENIOR APPLICATION SECURITY CONSULTANT NPRG Albumin, P 4.2 3.5 - 5.0 g/dL 03/06/2022 8:43 AM SENIOR APPLICATION SECURITY CONSULTANT NPRG Aspartate Aminotransferase (AST), P 35 8 - 48 U/L 03/06/2022 8:43 AM SENIOR APPLICATION SECURITY CONSULTANT NPRG Alkaline Phosphatase, P 83 40 - 129 U/L 03/06/2022 8:43 AM SENIOR APPLICATION SECURITY CONSULTANT NPRG Alanine Aminotransferase (ALT), P 31 7 - 55 U/L 03/06/2022 8:43 AM SENIOR APPLICATION SECURITY CONSULTANT NPRG Bilirubin, Total, P 0.4 <=1.2 mg/dL 03/06/2022 8:43 AM SENIOR APPLICATION SECURITY CONSULTANT NPRG Blood (Blood, Venous) 03/06/2022 8:15 AM SENIOR APPLICATION SECURITY CONSULTANT 03/06/2022 8:18 AM SENIOR APPLICATION SECURITY CONSULTANT us Elenita Nance M.D. LAB BLOOD ADD-ON Final Result [facility] [address] [place] [address], [facility] NPRG [facility] [address] [place] [address] from Last 3 Months or Most Recently Relevant to Health [place] [id number] Care Teams Brooch And Bracelet Maker Relationship Specialty Start Date End Date Elsewhere, Pcp PCP - General Internal Medicine 04/10/22
--- OUTSIDE RECORDS SUMMARY | 2023-12-16 15:16 | XMS_ITS ---
Author Organization [facility] Address [address] [place] [address] Care Team Providers Care Transporter Radiology Name Role Phone Elsewhere, Pcp Primary Care Provider Unavailabl e Active Problems Problem Noted Date Diagnosed Date Cyst Epididymus 05/03/2020 Benign Prostatic Hyperplasia Without Obstruction 05/03/2020 Hydrocele 05/03/2020 Pain Hip Right 09/02/2019 Overview (09/02/2019): Added automatically from request for surgery [id number] Infertility Male 09/02/2019 Overview (09/02/2019): Added automatically from request for surgery [id number] Hoarseness Chronic 04/24/2018 Dysphagia 04/24/2018 Other Specified Hypothyroidism 01/22/2017 Overview (01/22/2017): Iatrogenic, secondary to EBRT Elevated Creatinine 01/22/2017 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 Past Plans No past plan information found. Radiation Treatments * No radiation treatments are documented for this patient in [facility]. Treatments may have been administered in another system. Lifetime Dose Tracking * Chemical Lifetime Dose Automatic Entry Manual Entr y Radiation 0.151 mGy 0.151 mGy 0 mGy Fluoro Time 2 minutes 2 minutes 0 minutes
--- OUTSIDE RECORDS SUMMARY | 2023-12-16 15:17 | XMS_ITS | Continuity of Care Document ---
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 It does not include entries that were removed or entered in error. Problem Status Onset Date Problem Type Date of Resolution Comments Source Personal history of other malignant neoplasms of lymphoid, hematopoietic and related tissues Active 016 Condition DoD Personal history of malignant neoplasm, unspecified Active 016 Condition DoD Hypothyroidism, unspecified Active 016 Condition DoD Secondary and unspecified malignant neoplasm of lymph nodes of head, face and neck Active 015 Condition DoD lump in / on the skin Inactive 015 Condition [facility] visit for: administrative purpose Inactive 009 Condition DoD Adjustment disorder with depressed mood Active Condition [facility] Cervicalgia Active Condition [facility] Exposure to potentially hazardous substance (RUST [id number]) Active Condition Dec 03 Entered By: PHUC ADAMS Comment: Entered automatically through [facility] Problem List documentation program [facility] Family social history Active Condition June 27, 2023 Entered By: KATELYN PATTON Comment: 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 Entered By: KATELYN PATTON Comment: tobacco- noneMay 2023 Entered By: KATELYN PATTON Comment: alcohol- 2-4 drinks/ weekMa2023 Entered By: KATELYN PATTON Comment: illicit drug- noneMay 2023 Entered By: KATELYN PATTON Comment: lives with son and 2 dogsMay 2023 Entered By: KATELYN PATTON Comment: currently going through divorceMay 2023 Entered By: KATELYN PATTON Comment: father- with prostate CA and renal CAMay 2023 Entered By: KATELYN PATTON Comment: Mother- breast CA , with CHFMay , 2024 Entered By: KATELYN PATTON Comment: older sister- bladder cancerMay 2023 Entered By: KATELYN PATTON Comment: older sister-2 - heart attackMa2023 Entered By: KATELYN PATTON Comment: hernia repair- 2023 Entered By: KATELYN PATTON Comment: right hip replacement- 2023 Entered By: KATELYN PATTON Comment: tonsilectomy- 2020 [facility] Gastroesophageal reflux disease Active Condition [facility] History of right hip replacement Active Condition [facility] Hypothyroidism Active Condition [facility] Iatrogenic hypothyroidism Active Condition [facility] Mallet finger Active Condition June Entered By: KATELYN PATTON Comment: Mallet finger of right hand [facility] 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 June 27, 2023 Entered By: KATELYN PATTON Comment: 04/10/2022- EGD and biopsy done- result- gastric mucosa with reactive gastropathy and focal intestinal metaplasia [facility] Pain in right shoulder Active Condition DoD Other specified health status Active Condition DoD Pain in unspecified knee Active Condition DoD Cough Active Condition DoD Encounter for antineoplastic radiation therapy Active Condition [facility] refractive error - myopia Active Condition [facility] presbyopia Active Condition [facility] visit: ears/hearing exam for hearing conservation, treatment Inactive Condition [facility] assessment of patient condition work-related Active Condition [facility] acute reaction to stress Inactive Condition [facility] visit for: services flight physical Inactive Condition [facility] Audiologic Impedance Testing Inactive Condition [facility] Anthrax Vaccine, For Subcutaneous Use Inactive Condition [facility] Need For Vaccination Against Influenza Inactive Condition [facility] visit for: ears / hearing exam Inactive Condition [facility] visit for: services physical Active Condition DoD Diagnosis: ICD-10-CM G89.29 Other chronic pain Active Diagnosis [facility] Diagnosis: ICD-10-CM C76.0 Malignant neoplasm of head, face and neck Active Diagnosis [facility] Diagnosis: ICD-10-CM Z23 Encounter for immunization Active Diagnosis [facility] Diagnosis: ICD-10-CM E89.0 Postprocedural hypothyroidism Active Diagnosis [facility] Diagnosis: ICD-10-CM F43.21 Adjustment disorder with depressed mood Active Diagnosis [facility] Medications Combined list of outpatient medications from Department of Defense and Veterans Affairs facilities.Medications provided include 1) outpatient medications from the last 15 months, and 2) patient-reported medications. Medication Details Route Status Patient Instructions Prescription Expires Prescription Number Last Dispense Date Ordering Provider Order Date Order Qty Source CETIRIZINE HCL 10MG TAB TAKE ONE TABLET BY MOUTH EVERY MORNING FOR ALLERGIE S ORAL ACTIVE 06/27/2024 [id number] NAWAF PATTON 2023 90 [facility] LEVOTHYROXI NE NA 100MCG TAB (SYNTHROID) TAKE ONE TABLET BY MOUTH EVERY DAY FOR THYROID ORAL ACTIVE 06/27/2024 [id number] NAWAF PATTON 2023 90 [facility] LEVOTHYROXI NE SODIUM (levothyrox ine sodium), 100 MCG, TABLET, ORAL, AMNEAL PHARMACE, 100 ea. BOTTLE Cancele d [id number] : 2023 0 Pharmac y Data Transac tion Service Facilit y LIOTHYRONIN E NA 5MCG TAB TAKE ONE TABLET BY MOUTH EVERY MORNING FOR THYROID ORAL ACTIVE 06/27/2024 [id number] NAWAF PATTON 2023 90 [facility] MULTIVITAMI NS CAP/TAB TAKE ONE TABLET BY MOUTH EVERY DAY ORAL ACTIVE ADEBAYO BONDS Mariangel 2016 [facility] OMEPRAZOLE 20MG CAP,EC TAKE ONE CAPSULE BY MOUTH EVERY DAY NEEDED FOR HEARTBUR N - TAKE ON EMPTY STOMACH ORAL ACTIVE 06/27/2024 [id number] NAWAF PATTON 2023 45 [facility] ONDANSETRON HCL 4MG TAB,ORALLY DISINTEGRAT ING DISSOLVE ONE TABLET BY MOUTH EVERY MORNING NEEDED FOR NAUSEA AND VOMITING SUBLIN GUAL ACTIVE 06/27/2024 [id number] 4 NAWAF PATTON 2023 30 [facility] TAMSULOSIN HCL 0.4MG CAP TAKE ONE CAPSULE BY MOUTH EVERY MORNING FOR URINARY SYMPTOMS ORAL ACTIVE 06/27/2024 [id number] 4 NAWAF PATTON 2023 90 [facility] Allergies, Adverse Reactions, Alerts Combined list of allergies from Department of [facility] and Veterans Affairs facilities. It does not include entries that were removed or entered in error. Substance Category Reaction Severity Reaction type Status Date Reported Comments Source ACETAMINOP HEN/HYDROC ODONE Propensity to adverse reactions to drug (finding) Itching MODERATE active 4 [facility] OTHER {Cla } Drug allergy (disorder) Other Reaction active 6 SIM[facility] SEASONAL ALLERGIES Propensity to adverse reaction (finding) Sneezing, EYE IRRITATION MODERATE active 4 [facility] TAPE Propensity to adverse reaction (finding) Eruption MILD active 4 [facility] Immunizations Combined list of available immunizations from the Department of [facility] and [facility] facilities. Immunization Series Date Given Administered By Site Reaction Lot Number CVX Code Drug Manager Of Training And Development Status Comments Source ZOSTER RECOMBINANT 2 2023 JACKIE SCHMITT RIGHT DELTO ID [id number] complet ed DILUENT LOT# [id number] [facility] ZOSTER RECOMBINANT 1 2023 ROBERT OLMSTEAD RIGHT DELTO ID [id number] 187 complet ed [id number] 05/25/25 [facility] INFLUENZA, INJECTABLE, QUADRIVALENT, PRESERVATIVE FREE 2022 150 complet ed [facility] TD (ADULT), 2 LF TETANUS TOXOID, PRESERVATIVE FREE, ADSORBED 2022 09 complet ed [facility] COVID-19 (PFIZER), MRNA, LNP-S, PF, 30 MCG/0.3 ML DOSE 2020 208 complet ed [facility] INFLUENZA, INJECTABLE, QUADRIVALENT, PRESERVATIVE FREE 2020 150 complet ed [facility] COVID-19 (PFIZER), MRNA, LNP-S, PF, 30 MCG/0.3 ML DOSE 2020 208 complet ed [facility] COVID-19 (PFIZER), MRNA, LNP-S, PF, 30 MCG/0.3 ML DOSE 2019 208 complet ed [facility] INFLUENZA, INJECTABLE, QUADRIVALENT 2018 158 complet ed [facility] INFLUENZA, INJECTABLE, QUADRIVALENT, PRESERVATIVE FREE 2017 150 complet ed [facility] Influenza, injectable, quadrivalent, preservative free 1 2016 [id number] 150 [facility] (SKB) complet ed Influenza , injectabl e, quadrival ent, preservat judie free DoD INFLUENZA, SEASONAL, INJECTABLE 2016 141 complet ed [facility] Influenza, seasonal, injectable, preservative free 1 2015 UNK 140 Unknown (UNK) comple t ed Influenza , seasonal, injectabl e, preservat judie free DoD pneumococcal conjugate vaccine, 13 valent 1 2014 OMAR CARDENAS [id number] 133 [facility] ed pneumococ cristóbal conjugate vaccine, 13 valent DoD influenza, injectable, quadrivalent, contains preservative 1 2014 ARIS WAITE M [id number] 158 [facility] (SKB) complet ed influenza , injectabl e, quadrival ent, contains preservat judie DoD measles, mumps and rubella virus vaccine 2 2014 UNK 03 Unknown (UNK) Not Given measles, mumps and rubella virus vaccine DoD poliovirus vaccine, inactivated 1 2014 [id number] [facility] ([facility]) complet ed polioviru s vaccine, inactivat ed DoD anthrax vaccine 6 2014 [id number] [facility] [employer] [place] ([facility]) complet ed anthrax vaccine DoD pneumococcal polysaccharid e vaccine, 23 valent 1 2014 [id number] 33 Merck (MSD) complet ed pneumococ cristóbal polysacch aride vaccine, 23 valent DoD typhoid Vi capsular polysaccharid e vaccine 1 2014 [id number] 101 Jorge (AD) complet ed typhoid Vi capsular polysacch aride vaccine DoD Influenza, injectable, Madin Tatiana Canine Kidney, preservative free 1 2013 [id number] 153 Unknown (UNK) comple t ed Influenza , injectabl e, Madin [place] Canine Kidney, preservat judie free DoD INFLUENZA, SEASONAL, INJECTABLE 2013 141 complet ed [facility] INFLUENZA, UNSPECIFIED FORMULATION 2012 88 complet ed [facility] Influenza, injectable, Madin [place] Canine Kidney, preservative free 1 2012 [id number] CS [email or web address] ([facility]) complet ed Influenza , injectabl e, Madin [place] Canine Kidney, preservat judie free DoD Influenza, seasonal, injectable, preservative free 1 2011 [id number] 140 [facility] [email or web address] ([facility]) complet ed Influenza , seasonal, injectabl e, preservat judie free DoD tuberculin skin test; purified protein derivative solution, intradermal 1 2011 Unknown, Provider [id number] Sanofi Pasteur ([facility]) complet ed tuberculi n skin test; purified protein derivativ e solution, intraderm al DoD Influenza, seasonal, injectable, preservative free 1 2010 [id number] 140 [facility] [email or web address] ([facility]) complet ed Influenza , seasonal, injectabl e, preservat judie free DoD Influenza, seasonal, injectable 1 2010 [id number] 141 Sanofi Pasteur ([facility]) complet ed Influenza , seasonal, injectabl e DoD INFLUENZA, UNSPECIFIED FORMULATION 2010 88 complet ed [facility] vaccinia (smallpox) vaccine 1 2010 UNK 75 Unknown (UNK) Not Given vaccinia (smallpox ) vaccine DoD varicella virus vaccine 1 2010 UNK 21 Unknown (UNK) Not Given varicella virus vaccine DoD anthrax vaccine 5 2010 [id number] [employer] [place] ([facility]) complet ed anthrax vaccine DoD typhoid Vi capsular polysaccharid e vaccine 1 2010 [id number] Sanofi Pasteur ([facility]) complet ed typhoid Vi capsular polysacch aride vaccine DoD tuberculin skin test; purified protein derivative solution, intradermal 1 2010 Unknown, Provider UNK 96 Unknown (UNK) complet ed tuberculi n skin test; purified protein derivativ e solution, intraderm al DoD influenza virus vaccine, split virus (incl. purified surface antigen)-reti red CODE 1 2009 [id number] 15 Unknown (UNK) complet ed influenza virus vaccine, split virus (incl. purified surface antigen)- retired CODE DoD Novel influenza-H1N all formulations 1 2009 [id number] 128 [employer] [place] (NOV) complet ed Novel influenza -[id number], all formulati ons DoD influenza virus vaccine, split virus (incl. purified surface antigen)-reti red CODE 1 2008 UNK 15 [facility] [employer] ([facility]) complet ed influenza virus vaccine, split virus (incl. purified surface antigen)- retired CODE DoD tuberculin skin test; purified protein derivative solution, intradermal 1 2008 Unknown, Provider UNK 96 Unknown (UNK) complet ed tuberculi n skin test; purified protein derivativ e solution, intraderm al DoD tuberculin skin test; purified protein derivative solution, intradermal 1 2008 Unknown, Provider [id number] 96 Sanofi Pasteur ([facility]) complet ed tuberculi n skin test; purified protein derivativ e solution, intraderm al DoD anthrax vaccine 4 2008 [id number] 24 Unknown (UNK) comple t ed anthrax vaccine DoD influenza virus vaccine, split virus (incl. purified surface antigen)-reti red CODE 1 2007 [id number] 15 Unknown (UNK) complet ed influenza virus vaccine, split virus (incl. purified surface antigen)- retired CODE DoD anthrax vaccine 3 2007 UNK 24 [employer] [place] ([facility]) complet ed anthrax vaccine DoD anthrax vaccine 2 2007 UNK 24 [employer] [place] ([facility]) complet ed anthrax vaccine DoD anthrax vaccine 1 2007 UNK 24 [employer] [place] ([facility]) complet ed anthrax vaccine DoD typhoid Vi capsular polysaccharid e vaccine 1 2007 [id number] Other (OTH) complet ed typhoid Vi capsular polysacch aride vaccine DoD tetanus and diphtheria toxoids, adsorbed, preservative free, for adult use (2 Lf of tetanus toxoid and 2 Lf of diphtheria toxoid) 1 2007 [id number] 09 Sanofi Pasteur ([facility]) complet ed tetanus and diphtheri a toxoids, adsorbed, preservat judie free, for adult use (2 Lf of tetanus toxoid and 2 Lf of diphtheri a toxoid) DoD tetanus toxoid, reduced diphtheria toxoid, and acellular pertu is vaccine, adsorbed 1 2007 [id number] Sanofi Pasteur ([facility]) complet ed tetanus toxoid, reduced diphtheri a toxoid, and acellular pertussis vaccine, adsorbed DoD influenza virus vaccine, split virus (incl. purified surface antigen)-reti red CODE 1 2006 UNK 15 [facility] ([facility]) complet ed influenza virus vaccine, split virus (incl. purified surface antigen)- retired CODE DoD influenza virus vaccine, split virus (incl. purified surface antigen)-reti red CODE 1 2005 [id number] 15 [facility] ([facility]) complet ed influenza virus vaccine, split virus (incl. purified surface antigen)- retired CODE DoD influenza virus vaccine, split virus (incl. purified surface antigen)-reti red CODE 1 2005 [id number] 15 Unknown (UNK) comple t ed influenza virus vaccine, split virus (incl. purified surface antigen)- retired CODE DoD tuberculin skin test; purified protein derivative solution, intradermal 1 2004 Unknown, Provider UNK 96 Unknown (UNK) complet ed tuberculi n skin test; purified protein derivativ e solution, intraderm al DoD typhoid Vi capsular polysaccharid e vaccine 1 2003 UNK 101 Unknown (UNK) comple t ed typhoid Vi capsular polysacch aride vaccine DoD measles, mumps and rubella virus vaccine 0 2002 [id number] Merck (MSD) complet ed measles, mumps and rubella virus vaccine DoD meningococcal polysaccharid e vaccine (MPSV4) 0 2002 [id number] 32 Sanofi Pasteur ([facility]) complet ed meningoco ccal polysacch aride vaccine (MPSV4) DoD influenza virus vaccine, unspecified formulation 0 2002 [id number] 88 Sanofi Pasteur ([facility]) complet ed influenza virus vaccine, unspecifi ed formulati on DoD typhoid vaccine, parenteral, other than acetone-kille d, dried 0 2001 [id number] 41 Sanofi Pasteur ([facility]) complet ed typhoid vaccine, parentera l, other than acetone-k illed, dried DoD hepatitis B vaccine, adult dosage 3 2000 UNK 43 Unknown (UNK) comple t ed hepatitis B vaccine, adult dosage DoD hepatitis A vaccine, adult dosage 2 2000 UNK 52 Unknown (UNK) comple t ed hepatitis A vaccine, adult dosage DoD hepatitis B vaccine, adult dosage 2 1998 UNK 43 Unknown (UNK) comple t ed hepatitis B vaccine, adult dosage DoD typhoid vaccine, unspecified formulation 0 1998 UNK 91 Unknown (UNK) comple t ed typhoid vaccine, unspecifi ed formulati on DoD hepatitis B vaccine, adult dosage 1 1997 UNK 43 Unknown (UNK) comple t ed hepatitis B vaccine, adult dosage DoD typhoid Vi capsular polysaccharid e vaccine 1 1997 UNK 101 Unknown (UNK) comple t ed typhoid Vi capsular polysacch aride vaccine DoD yellow fever vaccine 0 1997 UNK 37 [place] (CON) complet ed yellow fever vaccine DoD hepatitis A vaccine, adult dosage 1 1997 UNK 52 Unknown (UNK) comple t ed hepatitis A vaccine, adult dosage DoD trivalent poliovirus vaccine, live, oral 0 1997 UNK 02 Unknown (UNK) comple t ed trivalent polioviru s vaccine, live, oral DoD measles and rubella virus vaccine 0 1997 UNK 04 Unknown (UNK) comple t ed measles and rubella virus vaccine DoD tetanus and diphtheria toxoids, adsorbed, preservative free, for adult use (2 Lf of tetanus toxoid and 2 Lf of diphtheria toxoid) 0 1997 UNK 09 Unknown (UNK) comple t ed tetanus and diphtheri a toxoids, adsorbed, preservat judie free, for adult use (2 Lf of tetanus toxoid and 2 Lf of diphtheri a toxoid) DoD meningococcal polysaccharid e vaccine (MPSV4) 0 1997 UNK 32 Unknown (UNK) comple t ed meningoco ccal polysacch aride vaccine (MPSV4) DoD adenovirus vaccine, unspecified formulation 0 1997 UNK 82 Unknown (UNK) comple t ed adenoviru s vaccine, unspecifi ed formulati on DoD influenza virus vaccine, unspecified formulation 0 1997 UNK 88 Unknown (UNK) comple t ed influenza virus vaccine, unspecifi ed formulati on DoD Results Combined list of recent chemistry, hematology and other laboratory results from Department of Defense and Veterans Affairs, ranging from 15 months to all on record, depending upon the facility. Order Name Results Value Reference Range Date Interpretation Specimen Comments Source THYROID STIMULATI NG IMMUNOGLO BULIN THYROID STIMULATING IMMUNOGLOBU KARINA ACTUAL/NORM AL IN SERUM <89 06/26 Specimen Type: SERUM Comment: REFERENCE RANGE: <140 % baseline Thyroid stimulating immunoglobu karina (TSI) can engage the TSH receptors resulting in hyperthyroi dism in Graves' disease patients. TSI levels can be useful in monitoring the clinical outcome of Graves' disease as well as assessing the potential for hyperthyroi dism from maternal-fe clare transfer. TSI results greater than or equal to (>=) 140% of the Reference Control are considered positive. NOTE: A serum TSH level greater than 350 micro-Inter national Units/mL can interfere with the TSI bioassay and potentially give false positive results. Patients who are and are suspected of having hyperthyroi dism should have both TSI and human Chorionic Gonadotropi n(hCG) tests measured. A serum hCG level greater than 40,625 mIU/mL can interfere with the TSI bioassay and may give false negative results. In these patients it is recommended that a second TSI be obtained when the hCG concentrati on falls below 40,625 mIU/mL (usually after approximate ly 20-weeks gestation). The analytical performance characteris tics of this assay have been determined by [employer] [place], [place]. The modificatio ns have not been cleared or approved by the FDA. This assay has been validated pursuant to the CLIA regulations and is used for clinical purposes. Test Performed by [employer] [place], [employer] [place], [address] [place] [address] Michael Jimenez M.D., Ph.D., Director of Laboratorie s , CLIA [id number] Ordering Provider: MICA PATTON Report Released Date/Time: June 27, 2023 11:49 AM Reporting Lab: [facility] [id number] Performing Lab: [address] [facility] TOTAL T3 TRIIODOTHYR ONINE (T3) [MASS/VOLUM E] IN SERUM OR PLASMA 79 ng/dL 35 - 193 06/26 Specimen Type: SERUM No comment entered. Ordering Provider: MICA PATTON Report Released Date/Time: June 27, 2023 11:49 AM Reporting Lab: [facility] [id number] Performing Lab: [facility] [address] [facility] PSA PROSTATE SPECIFIC AG [MASS/VOLUM E] IN SERUM OR PLASMA 2.07 ng/mL <4.00 - 4.00 06/26 Specimen Type: SERUM No comment entered. Ordering Provider: MICA PATTON Report Released Date/Time: June 27, 2023 10:36 AM Reporting Lab: [facility] [phone] Performing Lab: [facility] [address] [facility] HEMOGLOBI N A1C HEMOGLOBIN A1C/HEMOGLO BIN.TOTAL IN BLOOD 5.2 4.0 - 6.0 06/26 Specimen Type: BLOOD Comment: Values obtained from A1C measurement s can vary. For typical A1C assays, a reported value of 7.0 could actually be between 6.7 and 7.3 if measured by a reference method. A reported value of 9.0 could actually be between 8.7 and 9.3. Ref: http://www. ngsp.org/[place] Pdata.asp Ordering Provider: MICA PATTON Report Released Date/Time: June 27, 2023 10:36 AM Reporting Lab: [facility] [address] Performing Lab: [facility] [address] [facility] COMPREHEN SIVE METABOLIC PANEL+MG CREATININE [MASS/VOLUM E] IN SERUM OR PLASMA 1.4 mg/dL 0.7 - 1.2 06/26 H Specimen Type: PLASMA No comment entered. Ordering Provider: MICA PATTON Report Released Date/Time: June 27, 2023 10:36 AM Reporting Lab: [facility] [address] Performing Lab: [facility] [phone] [facility] COMPREHEN SIVE METABOLIC PANEL+MG UREA NITROGEN [MASS/VOLUM E] IN SERUM OR PLASMA 26 mg/dL 8 - 26 06/26 Specimen Type: PLASMA No comment entered. Ordering Provider: MICA PATTON Report Released Date/Time: June 27, 2023 10:36 AM Reporting Lab: [facility] [address] Performing Lab: [facility] [address] [facility] COMPREHEN SIVE METABOLIC PANEL+MG GLUCOSE [MASS/VOLUM E] IN SERUM OR PLASMA 97 mg/dL 70 - 100 06/26 Specimen Type: PLASMA No comment entered. Ordering Provider: MICA PATTON Report Released Date/Time: June 27, 2023 10:36 AM Reporting Lab: [facility] [address] Performing Lab: [facility] [address] [facility] COMPREHEN SIVE METABOLIC PANEL+MG SODIUM [MOLES/VOLU ME] IN SERUM OR PLASMA 141 mmol/L 136 - 145 06/26 Specimen Type: PLASMA No comment entered. Ordering Provider: MICA PATTON Report Released Date/Time: June 27, 2023 10:36 AM Reporting Lab: [facility] [phone] Performing Lab: [facility] [address] [facility] COMPREHEN SIVE METABOLIC PANEL+MG POTASSIUM [MOLES/VOLU ME] IN SERUM OR PLASMA 4.0 mmol/L 3.5 - 5.1 06/26 Specimen Type: PLASMA No comment entered. Ordering Provider: MICA PATTON Report Released Date/Time: June 27, 2023 10:36 AM Reporting Lab: [facility] [phone] Performing Lab: [facility] [address] [facility] COMPREHEN SIVE METABOLIC PANEL+MG CHLORIDE [MOLES/VOLU ME] IN SERUM OR PLASMA 109 mmol/L 98 - 107 06/26 H Specimen Type: PLASMA No comment entered. Ordering Provider: MICA PATTON Report Released Date/Time: June 27, 2023 10:36 AM Reporting Lab: [facility] [address] Performing Lab: [facility] [phone] [facility] COMPREHEN SIVE METABOLIC PANEL+MG CARBON DIOXIDE, TOTAL [MOLES/VOLU ME] IN SERUM OR PLASMA 26 mmol/L 22 - 29 06/26 Specimen Type: PLASMA No comment entered. Ordering Provider: MICA PATTON Report Released Date/Time: June 27, 2023 10:36 AM Reporting Lab: [facility] [address] Performing Lab: [facility] [address] [facility] COMPREHEN SIVE METABOLIC PANEL+MG CALCIUM [MASS/VOLUM E] IN SERUM OR PLASMA 9.3 mg/dL 8.4 - 10.2 06/26 Specimen Type: PLASMA No comment entered. Ordering Provider: MICA PATTON Report Released Date/Time: June 27, 2023 10:36 AM Reporting Lab: [facility] [address] Performing Lab: [facility] [address] [facility] COMPREHEN SIVE METABOLIC PANEL+MG PROTEIN [MASS/VOLUM E] IN SERUM OR PLASMA 6.3 g/dL 6.0 - 8.3 06/26 Specimen Type: PLASMA No comment entered. Ordering Provider: MICA PATTON Report Released Date/Time: June 27, 2023 10:36 AM Reporting Lab: [facility] [address] Performing Lab: [facility] [address] [facility] COMPREHEN SIVE METABOLIC PANEL+MG ALBUMIN [MASS/VOLUM E] IN SERUM OR PLASMA 3.7 g/dL 3.5 - 5.2 06/26 Specimen Type: PLASMA No comment entered. Ordering Provider: MICA PATTON Report Released Date/Time: June 27, 2023 10:36 AM Reporting Lab: [facility] [address] Performing Lab: [facility] [address] [facility] COMPREHEN SIVE METABOLIC PANEL+MG BILIRUBIN.T OTAL [MASS/VOLUM E] IN SERUM OR PLASMA 0.5 mg/dL 0.2 - 1.2 06/26 Specimen Type: PLASMA No comment entered. Ordering Provider: MICA PATTON Report Released Date/Time: June 27, 2023 10:36 AM Reporting Lab: [facility] [address] Performing Lab: [facility] [address] [facility] COMPREHEN SIVE METABOLIC PANEL+MG MAGNESIUM [MASS/VOLUM E] IN SERUM OR PLASMA 2.2 mg/dL 1.6 - 2.6 06/26 Specimen Type: PLASMA No comment entered. Ordering Provider: MICA PATTON Report Released Date/Time: June 27, 2023 10:36 AM Reporting Lab: [facility] [address] Performing Lab: [facility] [address] [facility] COMPREHEN SIVE METABOLIC PANEL+MG ANION GAP IN SERUM OR PLASMA 6 mmol/L 5 - 15 06/26 Specimen Type: PLASMA No comment entered. Ordering Provider: MICA PATTON Report Released Date/Time: June 27, 2023 10:36 AM Reporting Lab: [facility] [address] Performing Lab: [facility] [address] [facility] COMPREHEN SIVE METABOLIC PANEL+MG ALKALINE PHOSPHATASE [ENZYMATIC ACTIVITY/VO LUME] IN SERUM OR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 ent [facility]) [place] [address](Carl e Managemen t [facility]) OUTPATIENT [id number] Notes Entered by: AJ DE LA ROSA 04 Jan 2015 1010 ------- ------- ------- ------- -- Weekly F/u AJ VARELA 01/04 Released w/o Limitations [facility] [place] [address](C ase Managem ent [facility]) [place] [address](Rad iation Oncology [facility]) OUTPATIENT [id number] xrt JOHN DALAL 01/05 Released w/o Limitations [facility] [place] [address](R adiatio n Oncolog y [facility]) [place] [address](Ju motherapy Clinic [facility]) OUTPATIENT [id number] Notes Entered by: CHAYA TODD 05 Jan 2015 1307 ------- ------- ------- ------- -- IVF/SAMANTHA HOUSTON 01/05 Released w/o Limitations [facility] [place] [address](C hemothe rapy [facility]) [place] [address](Nut rition 5F Bed [employer] [facility]) OUTPATIENT [id number] Encount er for other specifi ed special examina tions KIMI MITCHELL 01/05 Released w/o Limitations [facility] [place] [address](N utritio n 5F Bed [place] [facility]) [place] [address](Rad iation Oncology [facility]) OUTPATIENT [id number] xrt JOHN DALAL M 01/06 Released w/o Limitations [facility] [place] [address](R adiatio n Oncolog y [facility]) [facility] Treatment [facility] [place] [address](Rad iation Oncology [facility]) OUTPATIENT [id number] xrt JOHN DALAL M 01/08 Released w/o Limitations [facility] [place] [address](R adiatio n Oncolog y [facility]) [place] [address](Rad iation Oncology [facility]) OUTPATIENT [id number] xrt ARELY [place] 01/11 Released w/o Limitations [facility] [place] [address](R adiatio n Oncolog y [facility]) [place] [address]([facility]) OUTPATIENT [id number] 0800, CISPLAT IN C2, SAMANTHA NICOLAS 01/11 Released w/o Limitations [facility] [place] [address](C hemothe rapy [facility]) [facility] Treatment [facility] [place] [address]([facility]) OUTPATIENT [id number] Notes Entered by: CHAYA TODD 12 Jan 2015 0811 ------- ------- ------- ------- -- IVF/SAMANTHA HOUSTON 01/12 Released w/o Limitations [facility] [address]([facility]) [facility] Treatment [facility] [place] [address](Rad iation Oncology [facility]) OUTPATIENT [id number] xrt ARELY [place] 01/12 Released w/o Limitations [facility] [place] [address](R adiatio n Oncolog y [facility]) [place] [address](Rad iation Oncology [facility]) OUTPATIENT [id number] xrt ARELY [place] 01/13 Released w/o Limitations [facility] [address](R adiatio n Oncolog y [facility]) [facility] Treatment [facility] [place] [address](Amparo rgency [facility]) OUTPATIENT [id number] KAREEN GREEN 01/13 Released w/o Limitations [facility] [place] [address](E mergenc y Med [facility]) [facility] Treatment [facility] [place] [address](Rad iation Oncology [facility]) OUTPATIENT [id number] xrt ARELY [place] 01/14 Released w/o Limitations [facility] [address](R adiatio n Oncolog y [facility]) [facility] Treatment [facility] [place] [address]([facility]) OUTPATIENT [id number] 0815, LABS/IV F, SAMANTHA NICOLAS 01/14 Released w/o Limitations [facility] [place] [address](C hemothe rapy [facility]) [facility] Treatment [facility] [place] [address](Carl e Managemen t [facility]) OUTPATIENT [id number] Notes Entered by: AJ DE LA ROSA 14 Jan 2015 1318 ------- ------- ------- ------- -- Weekly f/u AJ VARELA 01/14 Released w/o Limitations [facility] [address](C ase Managem ent [facility]) [place] [address](Rad iation Oncology [facility]) OUTPATIENT [id number] xrt ARELY [place] 01/15 Released w/o Limitations [facility] [address](R adiatio n Oncolog y [facility]) [place] [address]([facility]) OUTPATIENT [id number] Notes Entered by: CHAYA TODD 15 Jan 2015 0815 ------- ------- ------- ------- -- IVF,LAB S/SAMANTHA HOUSTON 01/15 Released w/o Limitations [facility] [address](C hemothe rapy [facility]) [place] [address](Rad iation Oncology [facility]) OUTPATIENT [id number] xrt ARELY [place] 01/18 Released w/o Limitations [facility] [address](R adiatio n Oncolog y [facility]) [place] [address](Carl e Managemen t [facility]) OUTPATIENT [id number] AJ Mackenzie 01/18 Released w/o Limitations [facility] [place] [address](C ase Managem ent [facility]) [place] [address]([facility]) OUTPATIENT [id number] Notes Entered by: Edwin PLASCENCIA 18 Jan 2015 0906 ------- ------- ------- ------- -- HYDRATI ON, SAMANTHA NICOLAS 01/18 Released w/o Limitations [facility] [place] [address](C hemothe [facility]) [place] [address](War rior Primary Care [facility]) TELE CONSULT [id number] Notes Entered by: SCOUT [place] 18 Jan 2015 1039 ------- ------- ------- ------- -- pt consult KALEN ARREAGA 01/18 [place] [address](W arrior Primary Care [facility]) [place] [address](Rad iation Oncology [facility]) OUTPATIENT [id number] xrt ARELY [place] 01/19 Released w/o Limitations [facility] [place] [address](R adiatio n Oncolog y [facility]) [place] [address](Superior laryngolo gy (ENT) [facility]) OUTPATIENT [id number] F/U LAINEY JAY 01/19 Released w/o Limitations [facility] [place] [address](O lele gology (ENT) [facility]) [place] [address](Ju motherapy Clinic [facility]) OUTPATIENT [id number] 0900, LABS/PI CC CHANGE/ IVF, SAMANTHA NICOLAS 01/19 Released w/o Limitations [facility] [place] [address](C hemothe rapy [facility]) [place] [address](Aud iology [facility]) OUTPATIENT [id number] chemo patient YOU GARCIAS 01/19 Released w/o Limitations [facility] [place] [address](A udiolog y [facility]) [place] [address](Rad iation Oncology [facility]) OUTPATIENT [id number] xrt ARELY [place] 01/20 Released w/o Limitations [facility] [place] [address](R adiatio n Oncolog y [facility]) [place] [address]([facility]) OUTPATIENT [id number] Notes Entered by: Shelyb SIDDIQI 20 Jan 2015 1033 ------- ------- ------- ------- -- HYDRATI ON/SAMANTHA MARTE 01/20 Released w/o Limitations [facility] [place] [address](C hemothe rapy [facility]) [place] [address](Nut rition 5F Bed [employer] [facility]) OUTPATIENT [id number] f/u KAVIN HUDSON 01/20 Released w/o Limitations [facility] [place] [address](N utritio n 5F Bed [place] [facility]) [place] [address](Rad iation Oncology [facility]) OUTPATIENT [id number] xrt ARELY [place] 01/21 Released w/o Limitations [facility] [place] [address](R adiatio n Oncolog y [facility]) [facility] Treatment [facility] [place] [address]([facility] motherapy [facility]) OUTPATIENT [id number] Notes Entered by: Shelby SIDDIQI 21 Jan 2015 0911 ------- ------- ------- ------- -- HYDRATI ON/LABS ?/SAMANTHA ORTEGA 01/21 Released w/o Limitations [facility] [place] [address](C hemothe rapy [facility]) [facility] Treatment [facility] [place] [address](Rad iation Oncology [facility]) TELE CONSULT [id number] Notes Entered by: HARVEY HE Kendy 21 Jan 2015 1649 ------- ------- ------- ------- -- Enteral Nutriti on Recomme ndation ARELY Bishop 01/21 [facility] [address](R adiatio n Oncolog y [facility]) [place] [address]([facility] iation Oncology [facility]) OUTPATIENT [id number] xrARELY Reynolds 01/22 Released w/o Limitations [place] [address](R adiatio n Oncolog y [facility]) [place] [address]([facility]) OUTPATIENT [id number] Notes Entered by: Shelby SIDDIQI 22 Jan 2015 0842 ------- ------- ------- ------- -- FRIEDA ACEVEDO/SAMANTHA MARTE 01/22 Released w/o Limitations [place] [address](C hemothe rapy [facility]) [place] [address]([facility] iation Oncology [facility]) OUTPATIENT [id number] xrt ARELY [place] 01/25 Released w/o Limitations [place] [address](R adiatio n Oncolog y [facility]) [place] [address]([facility]) OUTPATIENT [id number] Notes Entered by: Edwin PLASCENCIA 25 Jan 2015 0928 ------- ------- ------- ------- -- DR. JOB JONES ROBERT F 01/25 Released w/o Limitations [place] [address](C hemothe rapy [facility]) [place] [address](Carl e Managemen t [facility]) OUTPATIENT [id number] AJ Mackenzie 01/25 Released w/o Limitations [facility] [place] [address](C ase Managem ent [facility]LY [facility] [facility]) [place] [address]([facility]) TELE CONSULT [id number] Notes Entered by: KASSIDY DUFF 25 Jan 2015 1502 ------- ------- ------- ------- -- To arrange enteral feeding s in the home KASSIDY DUFF 01/25 [facility] [place] [address](C ase Managem ent [facility]) [place] [address](Amparo rgency [facility]) OUTPATIENT [id number] RA OWENS 01/26 Released w/o Limitations [facility] [place] [address](E mergenc y Med [facility]) [place] [address](Ju motherapy [facility]) OUTPATIENT [id number] LABS/IV F, SAMANTHA NICOLAS 01/26 Released w/o Limitations [facility] [place] [address](C hemothe rapy [facility]) [place] [address](Rad iation Oncology [facility]) OUTPATIENT [id number] xrt [place]LY [place] 01/26 Released w/o Limitations [facility] [place] [address](R adiatio n Oncolog y [facility]) [place] [address](Int ervention al Radiology [facility]) OUTPATIENT [id number] Notes Entered by: SONJA MORENO I 26 Jan 2015 1702 ------- ------- ------- ------- -- walked in peg clogged THAIS DODD 01/26 Released w/o Limitations [facility] [place] [address](I nterven tional Radiolo gy [facility]) [facility] [place] [address](Rad iation Oncology [facility]) OUTPATIENT [id number] xrt ARELY [place] 01/27 Released w/o Limitations [facility] [place] [address](R adiatio n Oncolog y [facility]) [facility] Treatment [facility] [place] [address]([facility] motherapy [facility]) OUTPATIENT [id number] IVF, SAMANTHA NICOLAS 01/27 Released w/o Limitations [facility] [place] [address](C hemothe rapy [facility]) [facility] [place] [address](Rad iation Oncology [facility]) OUTPATIENT [id number] xrt ARELY [place] 01/28 Released w/o Limitations [facility] [place] [address](R adiatio n Oncolog y [facility]) [facility] Treatment [facility] [place] [address]([facility]) OUTPATIENT [id number] IVF, SAMANTHA NICOLAS 01/28 Released w/o Limitations [facility] [place] [address](C hemothe rapy [facility]) [facility] [place] [address](Rad iation Oncology [facility]) OUTPATIENT [id number] xrt ARELY [place] 01/29 Released w/o Limitations [facility] [place] [address](R adiatio n Oncolog y [facility]) [facility] [place] [address] OUTPATIENT [id number] IVF, SAMANTHA NICOLAS 01/29 Released w/o Limitations [facility] [place] [address](C hemothe rapy [facility]) [facility] [place] [address] ER, DIRECT TO [facility] [id number] YECENIA ORDOÑEZ 02/01 RETURNED TO DUTY [facility] [place] [address] [place] [address](Rad iation Oncology [facility]) OUTPATIENT [id number] xrt JOHN DALAL M 02/01 Released w/o Limitations [facility] [place] [address](R adiatio n Oncolog y [facility]) [place] [address](Ju motherapy [facility]) OUTPATIENT [id number] CISPLAT IN D43, SAMANTHA NICOLAS 02/01 Admitted [facility] [place] [address](C hemothe rapy [facility]) [place] [address](Hem atology Oncology [facility]) TELE CONSULT [id number] Notes Entered by: SOLITARIO VANN 01 Feb 2015 0855 ------- ------- ------- ------- -- fever,c hills and due for treatme nt ESTEVES, KIMBERLI P 02/01 Referred for Appointment [facility] [place] [address](H ematolo gy Oncolog y [facility]) [place] [address](Carl e Managemen t [facility]) OUTPATIENT [id number] AJ Mackenzie 02/01 Released w/o Limitations [facility] [place] [address](C ase Managem ent [facility]) [place] [address](Rad iation Oncology [facility]) OUTPATIENT [id number] xrt PARAG HOWE 02/02 Released w/o Limitations [facility] [place] [address](R adiatio n Oncolog y [facility]) [place] [address](Carl e Managemen t [facility]) INPATIENT [id number] Notes Entered by: AJ DE LA ROSA 02 Feb 2015 0950 ------- ------- ------- ------- -- T-AJ aGrcia 02/02 Inpatient- Still a Patient [facility] [place] [address](C ase Managem ent [facility]) [place] [address](Amparo rgency [facility]) OUTPATIENT [id number] RA OWENS R 02/02 Admitted [facility]RE[facility] [place] [address](E mergenc y Med [facility]) [facility] [place] [address](Rad iation Oncology [facility]) OUTPATIENT [id number] xrt PARAG HOWE R 02/03 Released w/o Limitations [facility] [place] [address](R adiatio n Oncolog y [facility]) [facility] [place] [address](Rad iation Oncology [facility]) OUTPATIENT [id number] xrt PARAG HOWE R 02/04 Released w/o Limitations [facility] [place] [address](R adiatio n Oncolog y [facility]) [facility] [place] [address](Rad iation Oncology [facility]) OUTPATIENT [id number] xrt ARELY [place] 02/08 Released w/o Limitations [facility] [place] [address](R adiatio n Oncolog y [facility]) [facility] [place] [address](Carl e Managemen t [facility]) OUTPATIENT [id number] AJ Mackenzie 02/08 Released w/o Limitations [facility] [place] [address](C ase Managem ent [facility]) [facility] [place] [address](Ju motherapy Clinic [facility]) OUTPATIENT [id number] Notes Entered by: Shelby SIDDIQI 08 Feb 2015 1042 ------- ------- ------- ------- -- HYDRATI ON/DEVANTE GAN 02/08 Released w/o Limitations ESTRELL[facility] [place] [address](C hemothe rapy [facility]) [facility] [place] [address](Rad iation Oncology [facility]) OUTPATIENT [id number] xrt ARELY [place] 02/09 Released w/o Limitations ESTRELL[facility] [place] [address](R adiatio n Oncolog y [facility]) [place] [address](Ju motherapy [facility]) OUTPATIENT [id number] Notes Entered by: CHAYA TODD 09 Feb 2015 0846 ------- ------- ------- ------- -- IVF,LAB S/SAMANTHA HOUSTON 02/09 Released w/o Limitations [facility] [place] [address](C hemothe [facility]) [facility] [place] [address](Aud iology [facility]) OUTPATIENT [id number] f/u chemo pt KATERINE YOU S 02/09 Released w/o Limitations [facility] [place] [address](A udiolog y [facility]) [place] [address](War rior Primary Care [facility]) TELE CONSULT [id number] Notes Entered by: CHERYLE JIMENEZ 09 Feb 2015 1524 ------- ------- ------- ------- -- Profile Update KALEN ARREAGA 02/09 [facility] [place] [address](W arrior Primary Care [facility]) [place] [address](Rad iation Oncology [facility]) OUTPATIENT [id number] xrt ARELY WASHINTGON 02/10 Released w/o Limitations [facility] [place] [address](R adiatio n Oncolog y Trmnt [facility]) [place] [address](Rad iation Oncology [facility]) OUTPATIENT [id number] Notes Entered by: WENDY AKBAR 15 Feb 2015 0830 ------- ------- ------- ------- -- F/Up ARELY [place] 02/15 Released w/o Limitations [facility] [place] [address](R adiatio n Oncolog y [facility]) [place] [address](Carl e Managemen t [facility]) INPATIENT [id number] AJ Mackenzie 02/15 Inpatient- Still a Patient [facility] [place] [address](C ase Managem ent [facility]) [place] [address]([facility] Primary Care [facility]) OUTPATIENT [id number] neutrop enic fever KALEN ARREAGA 02/15 Released w/o Limitations [facility] [place] [address](W arrior Primary Care [facility]) [place] [address]([facility] Primary [facility]) TELE CONSULT [id number] Notes Entered by: SCOUT MONTANA 15 Feb 2015 1315 ------- ------- ------- ------- -- pt consult KALEN ARREAGA 02/15 [facility] [place] [address]([facility]) [place] [address](Superior laryngolo gy (ENT) [facility]) OUTPATIENT [id number] f/u chemo patient LAINEY JAY 02/16 Released w/o Limitations [facility] [place] [address](O lele hogan (ENT) [facility]) [place] [address](Carl e Managemen t [facility]) OUTPATIENT [id number] AJ Mackenzie 02/22 Released w/o Limitations [facility] [place] [address](C ase Managem ent [facility]) [place] [address](Carl e Managemen t [facility]) OUTPATIENT [id number] Notes Entered by: AJ DE LA ROSA 03 Mar 2015 0953 ------- ------- ------- ------- -- T-AJ Garcia 03/03 Released w/o Limitations [facility] [place] [address](C ase Managem ent [facility]) [place] [address](Carl e Managemen t [facility]) OUTPATIENT [id number] AJ Mackenzie 03/08 Released w/o Limitations [facility] [place] [address](C ase Managem ent [facility]) [place] [address](Carl e Managemen t [facility]) OUTPATIENT [id number] Notes Entered by: AJ DE LA ROSA 09 Mar 2015 0946 ------- ------- ------- ------- -- T-AJ Garcia 03/09 Released w/o Limitations [facility] [place] [address](C ase Managem ent [facility]) [place] [address](Carl e Managemen t [facility]) OUTPATIENT [id number] AJ Mackenzie 03/15 Released w/o Limitations [facility] [place] [address](C ase Managem ent [facility]) [place] [address](Carl e Managemen t [facility]) OUTPATIENT [id number] DARY Espinoza 03/23 Released w/o Limitations ESTRELLITA [place] [place] [address](C ase Managem ent [facility]) [place] [address](Rad iation Oncology [facility]) OUTPATIENT [id number] 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 OF DARELL HODGSON 03/25 Released w/o Limitations [facility] [place] [address](H ematolo gy Oncolog y [facility]) [place] [address](Carl e Managemen t [facility]) OUTPATIENT [id number] Notes Entered by: AJ DE LA ROSA 30 Mar 2015 1354 ------- ------- ------- ------- -- weekly f/u AJ VARELA 03/30 Released w/o Limitations [facility] [place] [address](C ase Managem ent [facility]) [place] [address](Carl e Managemen t [facility]) OUTPATIENT [id number] AJ Mackenzie 04/05 Released w/o Limitations [facility] [place] [address](C ase Managem ent [facility]) [place] [address](Superior laryngolo gy (ENT) [facility]) OUTPATIENT [id number] Follow up LAINEY JAY 04/05 Released w/o Limitations [facility] [place] [address](O tolaryn gology (ENT) [facility]) [place] [address](Aud iology [facility]) OUTPATIENT [id number] F/U RE-EVAL HEARING YOU GARCIAS 04/06 Released w/o Limitations [facility] [place] [address](A udiolog y [facility]) [place] [address](Carl e Managemen t [facility]) OUTPATIENT [id number] AJ Mackenzie Released w/o Limitations [facility] [place] [address](C ase Managem ent [facility]) [place] [address](Nut rition 5F Bed [employer] [facility]) OUTPATIENT [id number] FOLLOW UP/GTUB E KAVIN HUDSON 04/12 Released w/o Limitations [facility] [place] [address](N utritio n 5F Bed [employer] [facility]) [place] [address](Carl e Managemen t [facility]) OUTPATIENT [id number] AJ Mackenzie ANNE 04/18 Released w/o Limitations [facility] [place] [address](C ase Managem ent [facility]) [place] [address](War rior Primary Care [facility]) OUTPATIENT [id number] 30 DAY KALEN BOWMAN 04/19 Released w/o Limitations [facility] [place] [address](W arrior Primary Care [facility]) [place] [address](Nut rition 5F Bed [employer] [facility]) OUTPATIENT [id number] Notes Entered by: HARVEY HE 23 Apr 2015 1257 ------- ------- ------- ------- -- f/u LASHONDA harris on KAVIN HUDSON 04/22 Released w/o Limitations [facility] [place] [address](N utritio n 5F Bed [employer] [facility]) [place] [address](War rior Primary Care [facility]) TELE CONSULT [id number] Notes Entered by: SCOUT MONTANA 23 Apr 2015 1414 ------- ------- ------- ------- -- pt KALEN Lala 04/22 [facility] [place] [address](W arrior Primary Care [facility]) [place] [address](Carl e Managemen t [facility]) OUTPATIENT [id number] AJ Mackenzie 04/25 Released w/o Limitations [facility] [place] [address](C ase Managem ent [facility]) [place] [address](End ocrinolog [facility]) OUTPATIENT [id number] abnorma l thyroid functio n KAMERON_MAURICE SCRUGGS 04/26 Released w/o Limitations [facility] [place] [address](E ndocrin ology [facility]) [place] [address](Carl e Managemen t [facility]) OUTPATIENT [id number] Notes Entered by: AJ DE LA ROSA 05 May 2015 1543 ------- ------- ------- ------- -- T-AJ Garcia 05/04 Released w/o Limitations [facility] [place] [address](C ase Managem ent [facility]) [place] [address](Carl e Managemen t [facility]) OUTPATIENT [id number] Notes Entered by: AJ DE LA ROSA 11 May 2015 0932 ------- ------- ------- ------- -- Weekly f/u AJ VARELA 05/10 Released w/o Limitations [facility] [place] [address](C ase Managem ent [facility]) [place] [address]([facility] Rehabilit ation [facility]) OUTPATIENT [id number] Notes Entered by: Kendy LUIS 11 May 2015 1014 ------- ------- ------- ------- -- ScrimTAYA Silva 05/10 Released w/o Limitations [facility] [place] [address]([facility] Rehabil itation [facility]) [place] [address](Carl e Managemen t [facility]) OUTPATIENT [id number] Notes Entered by: AJ DE LA ROSA 11 May 2015 1429 ------- ------- ------- ------- -- Scrimma AJ Knight 05/10 Released w/o Limitations [facility] [place] [address](C ase Managem ent [facility]) [place] [address](Carl e Managemen t [facility]) OUTPATIENT [id number] AJ Mackenzie 05/16 Released w/o Limitations [facility] [place] [address](C ase Managem ent [facility]) [place] [address](Nut rition 5F Bed [employer] [facility]) OUTPATIENT [id number] f/u KAVIN HUDSON 05/17 Released w/o Limitations [facility] [place] [address]([facility] [place] [address](Rad iation Oncology [facility]) TELE CONSULT [id number] ARELY [place] 05/18 [facility] [place] [address](R virgen n Oncolog y [facility]) [place] [address]([facility] Rehabilit ation [facility]) OUTPATIENT [id number] F/U BARTON PLAN/WO TAYA SMALLWOOD C 05/18 Released w/o Limitations [facility] [place] [address]([facility] Rehabil itation Clinic) [place] [address](Carl e Managemen t [facility]) OUTPATIENT [id number] AJ Mackenzie 05/23 Released w/o Limitations [facility] [place] [address](C ase Managem ent [facility]) [place] [address](Superior laryngolo gy (ENT) [facility]) OUTPATIENT [id number] f/u pet scan PIERRELAINEY QUINN A 05/23 Released w/o Limitations [facility] [place] [address](O tolaryn gology (ENT) [facility]) [place] [address](Nut rition 5F Bed [employer] [facility]) OUTPATIENT [id number] f/u abnorma l weight loss KAVIN HUDSON N 05/24 Released w/o Limitations [facility] [place] [address](N utritio n 5F Bed [employer] [facility]) [place] [address](Rad iation Oncology [facility]) OUTPATIENT [id number] f/u head and neck ARELY [place] 05/25 Released w/o Limitations [facility] [place] [address](R adiatio n Oncolog y [facility]) [place] [address](Carl e Managemen t [facility]) OUTPATIENT [id number] AJ Mackenzie 05/30 Released w/o Limitations [facility] [place] [address](C ase Managem ent [facility]) [place] [address](End ocrinolog y [facility]) TELE CONSULT [id number] Notes Entered by: MARLEEN RAMIREZ 03 Jun 2015 1530 ------- ------- ------- ------- -- PT CALLED CLINIC KAMERON_MAURICE SCRUGGS 06/02 [facility] [place] [address](E ndocrin ology [facility]) [place] [address](Nut rition 5F Bed [employer] [facility]) OUTPATIENT [id number] Notes Entered by: HARVEY HE 04 Jun 2015 1307 ------- ------- ------- ------- -- f/u PEG assessm ent KAVIN HUDSON N 06/03 Released w/o Limitations [facility] [place] [address](N utritio n 5F Bed [place] [facility]) [place] [address](Carl e Managemen t [facility]) OUTPATIENT [id number] AJ Mackenzie 06/06 Released w/o Limitations [facility] [place] [address](C ase Managem ent [facility]) [place] [address](War rior Primary Care [facility]) OUTPATIENT [id number] SLEEP ISSUES KALEN ARREAGA 06/07 Released w/o Limitations [facility] [place] [address](W arrior Primary Care [facility]) [place] [address](Nut rition 5F Bed [employer] [facility]) OUTPATIENT [id number] Notes Entered by: HARVEY HE N 11 Jun 2015 1257 ------- ------- ------- ------- -- f/u PEG eval KAVIN HUDSON N 06/10 Released w/o Limitations [facility] [place] [address](N utritio n 5F Bed [employer] [facility]) [place] [address](Carl e Managemen t [facility] [facility]) OUTPATIENT [id number] MERLE GALLARDO 06/13 Released w/o Limitations [facility] [place] [address](C ase Managem ent [facility]) [place] [address](Carl e Managemen t [facility]) OUTPATIENT [id number] akil GALLARDO, MERLE 06/20 Released w/o Limitations [facility] [place] [address](C ase Managem ent [facility]) [place] [address](Randolph laryngolo gy (ENT) [facility]) OUTPATIENT [id number] 1M F/U FOR NECK PIERRELAINEY QUINN 06/20 Released w/o Limitations [facility] [place] [address](O tolaryn gology (ENT) [facility]) [place] [address](Rad iation Oncology [facility]) TELE CONSULT [id number] ARELY WASHINGTON 06/20 [facility] [place] [address](R adiatio n Oncolog y [facility]) [place] [address](Int ervention al Radiology [facility]) OUTPATIENT [id number] 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, face and JOSE ALEJANDRO, KHADAR H 06/24 Released w/o Limitations [facility] [place] [address](I nterven tional Radiolo gy [facility]) [place] [address](Carl e Managemen t [facility]) OUTPATIENT [id number] akil GALLARDOMERLE 06/27 Released w/o Limitations [facility] [place] [address](C ase Managem ent [facility]) [place] [address](War rior Primary Care [facility]) OUTPATIENT [id number] INITIAL VISIT W/PCM - PHIL PERALTA 06/30 Released w/o Limitations [facility] [place] [address]([facility]) [place] [address](Carl e Managemen t [facility]) OUTPATIENT [id number] Notes Entered by: MERA MANJARREZ 07 Jul 2015 1030 ------- ------- ------- ------- -- weekly appt DARY MANJARREZ 07/06 Released w/o Limitations [facility] [place] [address](C ase Managem ent [facility]) [place] [address](Rad iation Oncology [facility]) OUTPATIENT [id number] F/u ARELY W[place] 07/08 Released w/o Limitations [facility] [place] [address](R adiatio n Oncolog y [facility]) [place] [address](Carl e Managemen t [facility]) OUTPATIENT [id number] Notes Entered by: Edwin GALLARDO 14 Jul 2015 1020 ------- ------- ------- ------- -- MERLE Doss 07/13 Released w/o Limitations [facility] [place] [address](C ase Managem ent [facility]) [place] [address](Carl e Managemen t [facility]) OUTPATIENT [id number] weekly f/u MERLE GALLARDO 07/18 Released w/o Limitations [facility] [place] [address](C ase Managem ent [facility]) [place] [address](Carl e Managemen t [facility]) OUTPATIENT [id number] weekly f/u MERLE GALLARDO 07/25 Released w/o Limitations [facility] [place] [address](C ase Managem ent [facility]) [place] [address](Carl e Managemen t [facility]) OUTPATIENT [id number] Notes Entered by: MARTIN CONNER 27 Jul 2015 0931 ------- ------- ------- ------- -- MERLE Barksdale 07/26 Released w/o Limitations [facility] [place] [address](C ase Managem ent [facility]) [place] [address]([facility] Rehabilit ation [facility]) OUTPATIENT [id number] Notes Entered by: MADHU FLEMING 27 Jul 2015 1642 ------- ------- ------- ------- -- MARCELINO RODRÍGUEZ 07/26 Released w/o Limitations [facility] [place] [address]([facility] Re[facility]) [place] [address]([facility] Rehabilit ation [facility]) OUTPATIENT [id number] cherry follow up MARCELINO ZIMMERMAN 07/29 Released w/o Limitations [facility] [place] [address]([facility] itation [facility]) [place] [address](Carl e Managemen t [facility]) OUTPATIENT [id number] weekly f/u MERLE GALLARDO 08/01 Released w/o Limitations [facility] [place] [address](C ase Managem ent [facility]) [place] [address](Superior laryngolo gy (ENT) [facility]) OUTPATIENT [id number] 1m f/u per LAINEY Rodríguez 08/01 Released w/o Limitations [facility] [place] [address](Alok hogan (ENT) [facility]) [place] [address](War rior Primary Care [facility]) OUTPATIENT [id number] 30 DAY F/U PHIL DARBY 08/05 Released w/o Limitations [facility] [place] [address]([facility]) [place] [address](Carl e Managemen t [facility]) OUTPATIENT [id number] weekly f/u MERLE GALLARDO 08/08 Released w/o Limitations [facility] [place] [address](C ase Managem ent [facility]) [place] [address]([facility]) TELE CONSULT [id number] Notes Entered by: Nicole DARBY 10 Aug 2015 1159 ------- ------- ------- ------- -- x-ray result PHIL DARBY 08/09 [facility] [place] [address]([facility]) [place] [address](Carl e Managemen t [facility]) OUTPATIENT [id number] Notes Entered by: MARION CLARK 18 Aug 2015 1440 ------- ------- ------- ------- -- weekly MARION GALDAMEZ 08/17 Released with Work/Duty Limitations [facility] [place] [address](C ase Managem ent [facility]) [place] [address]([facility]) TELE CONSULT [id number] Notes Entered by: ROSALBA MCKENNA 19 Aug 2015 1321 ------- ------- ------- ------- -- Treatme nt plan for CCU packet PHIL DARBY 08/18 [facility] [place] [address]([facility]) [place] [address](End ocrinolog y [facility]) OUTPATIENT [id number] F/U KAMERON_MAURICE SCRUGGS 08/24 Released w/o Limitations [facility] [place] [address](E ndocrin ology [facility]) [place] [address](Carl e Managemen t [facility]) OUTPATIENT [id number] Notes Entered by: MARION CLARK 26 Aug 2015 1431 ------- ------- ------- ------- -- weekly [place] MARION ANDREWS Mariangel 08/25 Released with Work/Duty Limitations [facility] [place] [address](C ase Managem ent [facility]) [place] [address](Carl e Managemen t [facility]) OUTPATIENT [id number] weekly f/u MERLE GALLARDO 08/29 Released w/o Limitations [facility] [place] [address](C ase Managem ent [facility]) [place] [address](Carl e Managemen t [facility]) OUTPATIENT [id number] weekly f/u MERLE GALLARDO 09/05 Released w/o Limitations [facility] [place] [address](C ase Managem ent [facility]) [place] [address](Randolph laryngolo gy (ENT) [facility]) OUTPATIENT [id number] 1m f/u per /dr.b yakov beauchamp to modify LAINEY JAY 09/05 Released w/o Limitations [facility] [place] [address](O lele hogan (ENT) [facility]) [place] [address](War rior Primary Care [facility]) OUTPATIENT [id number] 30 DAY F/U PHIL DARBY 09/09 Released w/o Limitations [facility] [place] [address]([facility]) [place] [address](Carl e Managemen t [facility]) OUTPATIENT [id number] weekly f/u MERLE GALLARDO 09/12 Released w/o Limitations [facility] [place] [address](C ase Managem ent [facility]) [place] [address](Phy sical Therapy [facility]) OUTPATIENT [id number] Pain in right shoulde r JUN WHITLEY N 09/14 Released w/o Limitations [facility] [place] [address](P hysical Therapy [facility]) [place] [address](Carl e Managemen t [facility]) OUTPATIENT [id number] weekly f/u MERLE GALLARDO 09/19 Released w/o Limitations [facility] [place] [address](C ase Managem ent [facility]) [place] [address](War ri[facility] Primary Care [facility]) TELE CONSULT [id number] Notes Entered by: Nicole DARBY 20 Sep 2015 1743 ------- ------- ------- ------- -- lab result PHIL DARBY 09/19 [facility] [place] [address]([facility] Primary [facility]) [place] [address](War rior Primary Care [facility]) TELE CONSULT [id number] Notes Entered by: Nicole DARBY 22 Sep 2015 1451 ------- ------- ------- ------- -- profile update PHIL DARBY 09/21 [facility] [place] [address]([facility]) [place] [address](Carl e Managemen t [facility]) OUTPATIENT [id number] weekly f/u MERLE GALLARDO 09/26 Released w/o Limitations [facility] [place] [address](C ase Managem ent [facility]) [place] [address](Phy sical Therapy [facility]) OUTPATIENT [id number] kristinJUN De Luna 09/26 Released w/o Limitations [facility] [place] [address](P hysical Therapy [facility]) [place] [address](War rior Primary Care [facility]) OUTPATIENT [id number] DISCUSS PROBABL E MEB/GO DEVAUGHN PHIL DARBY Eric 09/27 Released w/o Limitations [facility] [place] [address]([facility]) [place] [address](Carl e Managemen t [facility]) OUTPATIENT [id number] weekly f/u GALLARDOMERLE 10/03 Released w/o Limitations [facility] [place] [address](C ase Managem ent [facility]) [place] [address](Randolph laryngolo gy (ENT) [facility]) OUTPATIENT [id number] Appt auth by LAINEY Engel 10/04 Released w/o Limitations [facility] [place] [address](O tolaryn gology (ENT) [facility]) [place] [address](Carl e Managemen t [facility]) OUTPATIENT [id number] weekly f/u MERLE GALLARDO 10/10 Released w/o Limitations [facility] [place] [address](C ase Managem ent [facility]) [facility] Primary Care-Old) OUTPATIENT [id number] [facility] INITIAL EVALUAT NIDHI PUGH Chuck 10/12 Released with Work/Duty Limitations [facility] Primary Care-Ol d) [facility] Case Managemen t) OUTPATIENT [id number] Notes Entered by: MELISSA ESPARZA 13 Oct 2015 1038 ------- ------- ------- ------- -- Intake RA MELISSA ESPARZA 10/12 Released with Work/Duty Limitations [facility] Case Managem ent) [facility] Case Managemen t) OUTPATIENT [id number] Notes Entered by: MELISSA ESPARZA 13 Oct 2015 1107 ------- ------- ------- ------- -- NCM Initial Intake MELISSA ESPARZA 10/12 Released with Work/Duty Limitations [facility] Case Managem ent) [facility] Primary Care-Old) OUTPATIENT [id number] [facility] INITIAL EVALUAT ION SAMANTHA MIGUELMARIJA 10/18 Released w/o Limitations [facility] Primary Care-Ol d) [facility] OT/PT-Old ) OUTPATIENT [id number] [facility] GOAL SETTING MAXIME PARR 10/19 Released with Work/Duty Limitations [facility] OT/PT-O ld) [facility](Medica l Board Processin g) OUTPATIENT [id number] [facility]DP (This is a records review only, SM not needed at APT) GEOVANY MACKEY 10/19 Released w/o Limitations [facility] Board Process ing) [facility] Case Managemen t) OUTPATIENT [id number] Notes Entered by: MELISSA ESPARZA 21 Oct 2015 1050 ------- ------- ------- ------- -- Weekly NCM encount er MELISSA ESPARZA 10/20 Released with Work/Duty Limitations [facility] Case Managem ent) [facility] OT/PT-Old ) OUTPATIENT [id number] [facility] INITIAL EVALUAT ION ERVIN MARTIR 10/24 Released with Work/Duty Limitations [facility] OT/PT-O ld) [facility](Deploy ment) OUTPATIENT [id number] [facility] INPROCE PEGGY BROWN 10/25 Released w/o Limitations [facility](Depl oyment) [facility] Case Managemen t) OUTPATIENT [id number] Notes Entered by: MELISSA ESPARZA 27 Oct 2015 1158 ------- ------- ------- ------- -- Weekly NCM encount MELISSA Marcos 10/26 Released with Work/Duty Limitations [facility] Case Managem ent) [facility] OT/PT-Old ) OUTPATIENT [id number] [facility] INITIAL EVALUAT ABIMAEL EPSTEIN REGGIE 10/31 Released w/o Limitations [facility] OT/PT-O ld) [facility] Primary Care-Old) TELE CONSULT [id number] Notes Entered by: Kemi FERRERA 01 Nov 2015 1139 ------- ------- ------- ------- -- ent referra NIDHI Huerta 10/31 [facility] Primary Care-Ol d) [facility] OT/PT-Old ) OUTPATIENT [id number] [facility] MARTIR BARNES 10/31 Released with Work/Duty Limitations [facility] OT/PT-O ld) [facility] Case Managemen t) OUTPATIENT [id number] Notes Entered by: MELISSA ESPARZA 02 Nov 2015 1613 ------- ------- ------- ------- -- Weekly NCM encount MELISSA Marcos 11/01 Released with Work/Duty Limitations [facility] Case Managem ent) [facility] Primary Care-Old) OUTPATIENT [id number] WT 30 DAY EVNIDHI CASTLE 11/03 Released with Work/Duty Limitations [facility] Primary Care-Ol d) [facility] Case Managemen t) OUTPATIENT [id number] Notes Entered by: MELISSA ESPARZA 08 Nov 2015 1344 ------- ------- ------- ------- -- MELISSA Hart 11/07 Released with Work/Duty Limitations [facility] Case Managem ent) [facility] OT/PT-Old ) OUTPATIENT [id number] Alyson [facility] MAXIME MCCONNELL 11/07 Released with Work/Duty Limitations [facility] OT/PT-O ld) [facility] Case Managemen t) OUTPATIENT [id number] Notes Entered by: ANTONIO QUACH 11 Nov 2015 1554 ------- ------- ------- ------- -- nice r to CCU meeting ANTONIO QUACH 11/10 Released w/o Limitations [facility] Case Managem ent) [facility] Case Managemen t) OUTPATIENT [id number] weekly NCM appt ANTONIO QUACH 11/15 Released w/o Limitations [facility] Case Managem ent) [facility] Case Managemen t) OUTPATIENT [id number] weekly NCM appt ANTONIO QUACH 11/23 Released w/o Limitations [facility] Case Managem ent) [facility] Case Managemen t) OUTPATIENT [id number] Notes Entered by: ANTONIO QUACH 02 Dec 2015 0856 ------- ------- ------- ------- -- f/u weekly NCM appt ANTONIO QUACH 12/01 Released w/o Limitations [facility] Case Managem ent) [facility] OT/PT-Old ) OUTPATIENT [id number] [facility] MAXIME MCCONNELL R 12/05 Released with Work/Duty Limitations [facility] OT/PT-O ld) [facility] Primary Care-Old) OUTPATIENT [id number] WT[facility] 30 DAY EVNIDHI CASTLE R 12/06 Released with Work/Duty Limitations [facility] Primary Care-Ol d) [facility] Case Managemen t) OUTPATIENT [id number] weekly NCM appt ANDERES, LENECE 12/06 Released w/o Limitations [facility] Case Managem ent) [facility] Primary Care-Old) OUTPATIENT [id number] fantallin akira side of neck NIDHI FERRERA R 12/08 Released with Work/Duty Limitations [facility] Primary Care-Ol [facility]) [facility] Primary Care-Old) OUTPATIENT [id number] WTB 30 DAY REVIEW LONI MIGUEL 12/12 Released w/o Limitations [facility] Primary [facility]-Ol [facility]) [facility] OT/PT-Old ) OUTPATIENT [id number] [facility] AQUATIC MAXIME MCCONNELL R 12/12 Released with Work/Duty Limitations [facility] OT/PT-O ld) [facility] Case Managemen t) OUTPATIENT [id number] weekly NCM appt ANDERES, LENECE 12/13 Released w/o Limitations [facility] Case Managem ent) [facility] Case Managemen [facility]) OUTPATIENT [id number] weekly NCM appt ANDERES, LENECE 12/21 Released w/o Limitations [facility] Case Managem ent) [facility]) OUTPATIENT [id number] [facility] P[facility] JENN OSEI 12/22 Released w/o Limitations [facility]) [facility] OT/PT-Old ) OUTPATIENT [id number] WT[facility] AQUATIC S MAXIME PARR R 12/26 Released with Work/Duty Limitations [facility] OT/PT-O ld) [facility] Case Managemen t) OUTPATIENT [id number] weekly NCM f/u ANTONIO QUACH 12/27 Released w/o Limitations [facility] Case Managem ent) [facility] OT/PT-Old ) OUTPATIENT [id number] [facility] EQUINE THERAPY SHANTEL TAYLOR 12/27 Released with Work/Duty Limitations [facility] OT/PT-O ld) [facility]) OUTPATIENT [id number] MT COMPENS ATION AND PENSION EXAM AHMET BATRES 12/29 Released w/o Limitations [facility]) [facility] Primary Care-Old) OUTPATIENT [id number] [facility] 30 DAY NIDHI CARCAMO R 01/02 Released with Work/Duty Limitations [facility] Primary Care-Ol [facility]) [facility] Case Managemen t) OUTPATIENT [id number] Notes Entered by: ANTONIO QUACH 03 Jan 2016 1603 ------- ------- ------- ------- -- weekly NCM follow up. ANTONIO QUACH 01/02 Released w/o Limitations [facility] Case Managem ent) [facility](Medica l Board Processin g) OUTPATIENT [id number] [facility] 03/23 (Dec 28) ROSANNA SPEARS 01/09 Released with Work/Duty Limitations [facility](Medi cristóbal Board Process ing) [facility] Case Managemen t) OUTPATIENT [id number] Notes Entered by: CEDRICK WATTS 10 Jan 2016 0808 ------- ------- ------- ------- -- ncm weekly f/u CEDRICK WATTS 01/09 Released with Work/Duty Limitations [facility] Case Managem ent) [facility] Primary Care-Old) OUTPATIENT [id number] WT[facility] 30 DAY LONI CACERES 01/10 Released w/o Limitations [facility] Primary Care-Ol d) [facility] Primary Care-Old) TELE CONSULT [id number] Notes Entered by: MARQUIS MIGUEL 11 Jan 2016 1318 ------- ------- ------- ------- -- Labs/Me d Request NIDHI FERRERA 01/10 [facility] Primary [facility]-Ol [facility]) [facility] OT/PT-Old ) OUTPATIENT [id number] WTB 30 DAY REGGIE CÁRDENAS 01/11 Released w/o Limitations [facility] OT/PT-O ld) [facility] OT/PT-Old ) OUTPATIENT [id number] WTB 30 DAY KJCHERYLE MARTIR MUELLER 01/11 Released with Work/Duty Limitations [facility] OT/PT-O ld) [facility] Case Managemen t) OUTPATIENT [id number] Notes Entered by: CEDRICK WATTS 17 Jan 2016 0827 ------- ------- ------- ------- -- ncm weekly f/u CEDRICK WATTS 01/16 Released with Work/Duty Limitations [facility] Case Managem ent) [facility] OT/PT-Old ) OUTPATIENT [id number] [facility] MAXIME TAY 01/16 Released with Work/Duty Limitations [facility] OT/PT-O ld) [facility] Case Managemen t) OUTPATIENT [id number] Notes Entered by: CEDRICK WATTS 26 Jan 2016 0736 ------- ------- ------- ------- -- ncm weekly f/u CEDRICK WATTS 01/25 Released with Work/Duty Limitations [facility] Case Managem ent) [facility] Case Managemen t) OUTPATIENT [id number] Notes Entered by: CEDRICK WATTS 02 Feb 2016 0831 ------- ------- ------- ------- -- wtb ncm f/u CEDRICK WATTS 02/01 Released with Work/Duty Limitations [facility] Case Managem ent) [facility] Case Managemen t) OUTPATIENT [id number] Notes Entered by: CEDRICK WATTS 09 Feb 2016 1524 ------- ------- ------- ------- -- ncm weekly f/u CEDRICK WATTS 02/08 Released with Work/Duty Limitations [facility] Case Managem ent) [facility] Case Managemen t) OUTPATIENT [id number] Notes Entered by: CEDRICK WATTS 18 Feb 2016 0859 ------- ------- ------- ------- -- ncm weekly f/u CEDRICK WATTS 02/17 Released with Work/Duty Limitations [facility] Case Managem ent) [facility] Case Managemen t) OUTPATIENT [id number] weekly NCM appt ANTONIO QUACH 02/21 Released w/o Limitations [facility] Case Managem ent) [facility] Case Managemen t) OUTPATIENT [id number] Notes Entered by: ANTONIO QUACH 02 Mar 2016 1018 ------- ------- ------- ------- -- weekly NCM appt ANDJOHN, GRADY 03/02 Released w/o Limitations [facility] Case Managem ent) [facility] Primary Care-Old) TELE CONSULT [id number] Notes Entered by: ANTONIO QUACH 03 Mar 2016 1332 ------- ------- ------- ------- -- referra l for Endocri nology on the Network NIDHI FERRERA 03/03 [facility]) [facility] Case [facility]ag[facility]) OUTPATIENT [id number] weekly NCM appt ANDJOHN, GRADY 03/06 Released w/o Limitations [facility]) [facility]) OUTPATIENT [id number] weekly NCM appt ANDJOHN, [facility] 03/14 Released w/o Limitations [facility]) [facility]) OUTPATIENT [id number] weekly NCM appt ANDJOHN, GRADY 03/20 Released w/o Limitations [facility]) [facility]) TELE CONSULT [id number] Notes Entered by: ANTONIO QUACH 31 Mar 2016 0957 ------- ------- ------- ------- -- weekly contact by NC ANDJOHN, GRADY 03/31 [facility]) [facility] Primary [facility]) OUTPATIENT [id number] f/u, SRR NIDHI FERRERA 04/05 Released with Work/Duty Limitations [facility]) [facility]) OUTPATIENT [id number] Notes Entered by: ANTONIO QUACH 06 Apr 2016 1131 ------- ------- ------- ------- -- weekly NCM appt ANTONIO QUACH 04/06 Released w/o Limitations [facility] Case [facility]) [facility] Primary [facility]) OUTPATIENT [id number] f/u, SRR medicat ion review LONI MIGUEL 04/10 Released w/o Limitations [facility]) [facility]) OUTPATIENT [id number] Notes Entered by: ANTONIO QUACH 10 Apr 2016 1520 ------- ------- ------- ------- -- weekly NCM appt ANTONIO QUACH 04/10 Released w/o Limitations [facility] Case [facility]) [facility] Opto) OUTPATIENT [id number] eye exam RACHELLE CARUSO 04/11 Released w/o Limitations [facility]) [facility] OT/PT-Old ) OUTPATIENT [id number] Notes Entered by: REGGIE EPSTEIN 11 Apr 2016 1400 ------- ------- ------- ------- -- 90 day eval while on SRR REGGIE EPSTEIN 04/11 Released w/o Limitations [facility] OT/PT-O ld) [facility]) OUTPATIENT [id number] Notes Entered by: ANTONIO QUACH 18 Apr 2016 1756 ------- ------- ------- ------- -- weekly NCM appt ANDANTONIO LOPEZ 04/18 Released w/o Limitations [facility] Case [facility]) [facility]) OUTPATIENT [id number] Notes Entered by: ANTONIO QUACH 24 Apr 2016 0912 ------- ------- ------- ------- -- weekly NCM appt ANDANTONIO LOPEZ 04/24 Released w/o Limitations [facility]) [facility]) OUTPATIENT [id number] Notes Entered by: MELISSA ESPARZA 02 May 2016 0916 ------- ------- ------- ------- -- Coverin g NCM encount er MELISSA ESPARZA 05/02 Released with Work/Duty Limitations [facility]) [facility]) OUTPATIENT [id number] Notes Entered by: ANTONIO QUACH 11 May 2016 0743 ------- ------- ------- ------- -- weekly NCM appt ANDANTONIO LOPEZ 05/11 Released w/o Limitations [facility]) [facility]) TELE CONSULT [id number] Notes Entered by: ANTONIO QUACH 18 May 2016 1054 ------- ------- ------- ------- -- weekly NCM appt ANTONIO QUACH 05/18 [facility]) [facility]) OUTPATIENT [id number] Notes Entered by: ANTONIO QUACH 22 May 2016 0922 ------- ------- ------- ------- -- weekly NCM appt ANDANTONIO LOPEZ 05/22 Released w/o Limitations [facility]) [facility]) OUTPATIENT [id number] Notes Entered by: ANTONIO QUACH 29 May 2016 0952 ------- ------- ------- ------- -- weekly NCM appt ANDANTONIO LOPEZ 05/29 Released w/o Limitations [facility]) [facility]) TELE CONSULT [id number] Notes Entered by: ANTONIO QUACH 31 May 2016 0934 ------- ------- ------- ------- -- sick radha IBANNIDHI ESCALERA 05/31 [facility]) [facility]) OUTPATIENT [id number] Notes Entered by: ANTONIO QUACH 06 Jun 2016 1644 ------- ------- ------- ------- -- weekly NCM appt ANDANTONIO LOPEZ 06/06 Released w/o Limitations [facility]) [facility]) OUTPATIENT [id number] Notes Entered by: ANTONIO QUACH 12 Jun 2016 1527 ------- ------- ------- ------- -- weekly NCM appt ANDANTONIO LOPEZ 06/12 Released w/o Limitations [facility]) [facility]) TELE CONSULT [id number] Notes Entered by: ANTONIO QUACH 21 Jun 2016 1324 ------- ------- ------- ------- -- weekly NCM appt ANDANTONIO LOPEZ 06/21 [facility] Case [facility]) [facility]) OUTPATIENT [id number] Notes Entered by: ANTONIO QUACH 27 Jun 2016 1354 ------- ------- ------- ------- -- weekly NCM appt ANDANTONIO LOPEZ 06/27 Released w/o Limitations [facility]) [facility]) TELE CONSULT [id number] Notes Entered by: ANTONIO QUACH 05 Jul 2016 1552 ------- ------- ------- ------- -- weekly NCM appt ANDANTONIO LOPEZ 07/05 [facility]) [facility]) OUTPATIENT [id number] Notes Entered by: ANTONIO QUACH 13 Jul 2016 0940 ------- ------- ------- ------- -- weekly NCM appt ANDANTONIO LOPEZ 07/13 Released w/o Limitations [facility]) [facility]) TELE CONSULT [id number] Notes Entered by: ANTONIO QUACH 18 Jul 2016 1853 ------- ------- ------- ------- -- retro refer l for oncolog y appt 16 May 2016 NIDHI FERRERA 07/18 [facility]) [facility]) OUTPATIENT [id number] Notes Entered by: ANTONIO QUACH 25 Jul 2016 1437 ------- ------- ------- ------- -- weekly NCM appt ANTONIO QUACH 07/25 Released w/o Limitations [facility]) [facility]) OUTPATIENT [id number] SRR per NCM NIDHI FERRERA R 07/31 Released with Work/Duty Limitations [facility]) [facility]) OUTPATIENT [id number] Notes Entered by: ANTONIO QUACH 31 Jul 2016 1615 ------- ------- ------- ------- -- weekly NCM appt ANDANTONIO LOPEZ 07/31 Released w/o Limitations [facility]) [facility]) TELE CONSULT [id number] Notes Entered by: ANTONIO QUACH 02 Aug 2016 0951 ------- ------- ------- ------- -- memory concern from patient NIDHI FERRERA R 08/02 [facility]) [facility]) OUTPATIENT [id number] Notes Entered by: ANTONIO QUACH 07 Aug 2016 1654 ------- ------- ------- ------- -- weekly NCM appt ANTONIO QUACH 08/07 Released w/o Limitations [facility]) [facility]) OUTPATIENT [id number] SRR f/u SAMANTHA MIGUELOCTBECKIE 08/08 Released w/o Limitations [facility]) [facility] ) OUTPATIENT [id number] ITITIAL tbi LAITH BARAKAT 08/09 Released w/o Limitations [facility]) IS[facility]A Monte([facility]) TELE CONSULT [id number] Notes Entered by: LARA MASON 18 Aug 2016 1007 ------- ------- ------- ------- -- 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 NIDHI FERRERA 08/18 [facility]) [facility]) OUTPATIENT [id number] Notes Entered by: ANTONIO QUACH 21 Aug 2016 1500 ------- ------- ------- ------- -- weekly NCM appt ANTONIO QUACH 08/21 Released w/o Limitations [facility]) [facility]) TELE CONSULT [id number] Notes Entered by: ANTONIO QUACH 23 Aug 2016 1442 ------- ------- ------- ------- -- sleep study NIDHI Sanabria 08/23 [facility]) [facility]) OUTPATIENT [id number] Notes Entered by: ANTONIO QUACH 29 Aug 2016 0852 ------- ------- ------- ------- -- weekly NCM appt ANTONIO QUACH 08/29 Released w/o Limitations [facility]) [facility]) OUTPATIENT [id number] Notes Entered by: ANTONIO QUACH 04 Sep 2016 0844 ------- ------- ------- ------- -- weekly NCM appt ANTONIO QUACH 09/04 Released w/o Limitations [facility]) [facility]) OUTPATIENT [id number] weekly visit LARA MASON 09/19 Released with Work/Duty Limitations [facility] Case [facility]) [facility]) OUTPATIENT [id number] Notes Entered by: LARA MASON P 22 Sep 2016 0943 ------- ------- ------- ------- -- Referra l and R LARA MASON P 09/22 Released with Work/Duty Limitations [facility] Case [facility]) [facility]) OUTPATIENT [id number] Notes Entered by: ANTONIO QUACH 26 Sep 2016 0802 ------- ------- ------- ------- -- weekly NCM appt ANTONIO QUACH 09/26 Released w/o Limitations [facility] Case [facility]) [facility]) OUTPATIENT [id number] Notes Entered by: ANTONIO QUACH 03 Oct 2016 1345 ------- ------- ------- ------- -- weekly NCM appt ANTONIO QUACH 10/03 Released w/o Limitations [facility]) [facility]) OUTPATIENT [id number] Notes Entered by: ANTONIO QUACH 09 Oct 2016 0752 ------- ------- ------- ------- -- weekly NCM appt ANTONIO QUACH 10/09 Released w/o Limitations [facility]) [facility]) TELE CONSULT [id number] Notes Entered by: ANTONIO QUACH 18 Oct 2016 1412 ------- ------- ------- ------- -- weekly NCM appt ANTONIO QUACH 10/18 [facility] Case [facility]) [facility]) OUTPATIENT [id number] Notes Entered by: ANTONIO QUACH 24 Oct 2016 1601 ------- ------- ------- ------- -- weekly NCM appt ANDANTONIO LOPEZ 10/24 Released w/o Limitations [facility] Case [facility]) [facility]) OUTPATIENT [id number] Notes Entered by: ANTONIO QUACH 31 Oct 2016 1336 ------- ------- ------- ------- -- weekly NCM appt ANDANTONIO LOPEZ 10/31 Released w/o Limitations [facility] Case [facility]agem [facility]) [facility]) OUTPATIENT [id number] [facility] SRR F/U NIDHI FERRERA 11/06 Released with Work/Duty Limitations [facility]) [facility]) OUTPATIENT [id number] Notes Entered by: ANTONIO QUACH 06 Nov 2016 1346 ------- ------- ------- ------- -- weekly NCM appt ANTONIO QUACH 11/06 Released w/o Limitations [facility] Case [facility]) [facility]) OUTPATIENT [id number] srr,NICOLE Kaur 11/13 Released w/o Limitations [facility]) [facility]ag[facility]) OUTPATIENT [id number] Notes Entered by: ANTONIO QUACH 13 Nov 2016 1441 ------- ------- ------- ------- -- weekly NCM appt ANTONIO QUACH 11/13 Released w/o Limitations [facility] Case [facility]) [facility] OT/PT-Old ) OUTPATIENT [id number] SRR RE REGGIE CÁRDENAS 11/14 Released with Work/Duty Limitations [facility] OT/PT-O ld) [facility] OT/PT-Old ) OUTPATIENT [id number] srr re MARTIR Ivy 11/14 Released with Work/Duty Limitations [facility] OT/PT-O ld) [facility]ag[facility]) OUTPATIENT [id number] Notes Entered by: ANTONIO QUACH 21 Nov 2016 1557 ------- ------- ------- ------- -- weekly NCM appt ANTONIO QUACH 11/21 Released w/o Limitations [facility] Case [facility]agem [facility]) [facility]) OUTPATIENT [id number] weekly NCM appt ANTONIO QUACH 11/29 Released w/o Limitations [facility] Case Managem [facility]) [facility]) OUTPATIENT [id number] Notes Entered by: ANTONIO QUACH 04 Dec 2016 1128 ------- ------- ------- ------- -- weekly NCM appt ANDANTONIO LOPEZ 12/04 Released w/o Limitations [facility]) [facility]) OUTPATIENT [id number] weekly NCM appt ANDANTONIO LOPEZ 12/12 Released w/o Limitations [facility] Case [facility]agem [facility]) [facility]) TELE CONSULT [id number] Notes Entered by: ANTONIO QUACH 13 Dec 2016 0924 ------- ------- ------- ------- -- dawson queen to NIDHI NEWELL 12/13 [facility]) [facility] Case [facility]ag[facility]) OUTPATIENT [id number] Notes Entered by: ANTONIO QUACH 18 Dec 2016 1115 ------- ------- ------- ------- -- weekly NCM appt ANDANTONIO LOPEZ 12/18 Released w/o Limitations [facility]) [facility]) OUTPATIENT [id number] weekly NCM appt ANDANTONIO LOPEZ 12/26 Released w/o Limitations [facility] Case [facility]agem [facility]) [facility]) OUTPATIENT [id number] weekly NCM appt ANDANTONIO LOPEZ 01/01 Released w/o Limitations [facility] Case Managem [facility]) [facility]) TELE CONSULT [id number] Notes Entered by: ANTONIO QUACH 01 Jan 2017 0757 ------- ------- ------- ------- -- retro Leonard referra bret NIDHI FERRERA R 01/01 [facility]) [facility]) TELE CONSULT [id number] Notes Entered by: ANTONIO QUACH 01 Jan 2017 0805 ------- ------- ------- ------- -- retro referra l for oncolog y NIDHI FERRERA R 01/01 [facility]) [facility]) OUTPATIENT [id number] weekly NCM appt ANTONIO QUACH 01/08 Released w/o Limitations [facility] Case Man[facility]) [facility]) OUTPATIENT [id number] srr,[facility] NIDHI FERRERA R 01/10 Released with Work/Duty Limitations [facility]) [facility]ag[facility]) OUTPATIENT [id number] Notes Entered by: ANTONIO QUACH 15 Jan 2017 1445 ------- ------- ------- ------- -- weekly NCM appt ANDANTONIO LOPEZ 01/15 Released w/o Limitations [facility] Case [facility]) [facility]) OUTPATIENT [id number] Notes Entered by: SHER FLORIAN F 15 Jan 2017 1525 ------- ------- ------- ------- -- [place] MARGARITA NORRIS F 01/15 Released w/o Limitations [facility] Case [facility]) [facility]) OUTPATIENT [id number] srr,ccLONI Fuller 01/16 Released w/o Limitations [facility]) [facility]) TELE CONSULT [id number] Notes Entered by: ANTONIO QUACH 18 Jan 2017 0952 ------- ------- ------- ------- -- referra l to NIDHI HENDRICKSON 01/18 [facility]) [facility]) OUTPATIENT [id number] weekly NCM appt ANTONIO QUACH 01/23 Released w/o Limitations [facility] Case [facility]) [facility]) OUTPATIENT [id number] WEEKLY NCM F./U JES SHAIKH GUS 02/01 Released w/o Limitations [facility] Case [facility]) [facility]) OUTPATIENT [id number] Notes Entered by: SONDRA SHAIKH 07 Feb 2017 0912 ------- ------- ------- ------- -- Telepho ne weekly f/u JES SHAIKH GUS 02/07 Released w/o Limitations [facility] Case [facility]agem [facility]) [facility]) OUTPATIENT [id number] Notes Entered by: SONDRA SHAIKH GUS 16 Feb 2017 1538 ------- ------- ------- ------- -- Telepho robert weekly f/u JES SHAIKH GUS 02/16 Released w/o Limitations [facility] Case [facility]agem [facility]) [facility]) OUTPATIENT [id number] weekly NCM appt JES SHAIKH 02/20 Released w/o Limitations [facility] [place] [place] [place] OUTPATIENT [id number] 7 TDRL APPT - T-EVANGELINA MARIADA 10/14 Released with Work/Duty Limitations [place], [place]([facility]) [facility] PSY[facility] W PT 45 MINUTES [id number] Diagnos is: ICD-10- CM F43.21 Adjustm ent disorde r with depress ed mood
MENTON,RIA JEOVANY H 06/19 [facility] W PT 45 MINUTES [id number] Diagnos is: ICD-10- CM F43.21 Adjustm ent disorde r with depress ed mood
MENTON,RIA JEOVANY H 06/26 [facility] PSY[facility] W PT 45 MINUTES [id number] Diagnos is: ICD-10- CM F43.21 Adjustm ent disorde r with depress ed mood
MENTON,RIA JEOVANY H 07/03 [facility] PSY[facility] W PT 45 MINUTES [id number] [id number] 09 Diagnos is: ICD-10- CM F43.21 Adjustm ent disorde r with depress ed mood
MENTON,RIA JEOVANY H 07/11 [facility] PSYCL TST EVAL PHYS/QHP [id number] [id number] Diagnos is: ICD-10- CM F43.21 Adjustm ent disorde r with depress ed mood
MENTON,RIA JEOVANY H 07/18 [facility] PSY[facility] W PT 45 MINUTES [id number] [id number] Diagnos is: ICD-10- CM F43.21 Adjustm ent disorde r with depress ed mood
RIA YANES H 08/01 [facility] PSY[facility] W PT 45 MINUTES [id number] [id number] 85 Diagnos is: ICD-10- CM F43.21 Adjustm ent disorde r with depress ed mood
MENTRIA ACEVEDO H 08/21 [facility] [place] [facility] Outpatient Encounter [id number] 08/30 [place] [facility] Outpatient Encounter [id number] 09/05 [facility] [place] [facility] Outpatient Encounter [id number] 09/05 [place] [facility] PSYTX W PT 45 MINUTES [id number] [id number] 56 Diagnos is: ICD-10- CM F43.21 Adjustm ent disorde r with depress ed mood
RIA YANES H 09/05 [facility] [place] [facility] Outpatient Encounter [id number] HERBREKHA NDA J 09/06 [place] [facility] PSYTX W PT 45 MINUTES [id number] [id number] 45 Diagnos is: ICD-10- CM F43.21 Adjustm ent disorde r with depress ed mood
RIA YANES H 09/25 [facility] PSY[facility] W PT 45 MINUTES [id number] [id number] 90 Diagnos is: ICD-10- CM F43.21 Adjustm ent disorde r with depress ed mood
RIA YANES H 10/09 [facility] PSY[facility] W PT 45 MINUTES [id number] [id number] 28 Diagnos is: ICD-10- CM F43.21 Adjustm ent disorde r with depress ed mood
MENTONRIA H 10/23 [facility] PSYTX W PT 45 MINUTES 59006-4.61 [id number] 84 Diagnos is: ICD-10- CM F43.21 Adjustm ent disorde r with depress ed mood
MENTON,RIA THAYER H 11/07 [facility] PSYTX W PT 45 MINUTES 19519-5.61 [id number] 84 Diagnos is: ICD-10- CM F43.21 Adjustm ent disorde r with depress ed mood
MENTONRIAM H 12/04 [facility] PSYTX W PT 45 MINUTES [id number] [id number] 11 Diagnos is: ICD-10- CM F43.21 Adjustm ent disorde r with depress ed mood
MENTONRIAM H 01/01 [facility] [place] [facility] Outpatient Encounter [id number] 01/24 [facility] [place] [facility] Outpatient Encounter [id number] 03/06 [facility] [place] [facility] Outpatient Encounter [id number] 03/13 [facility] [place] [facility] Outpatient Encounter [id number] 03/26 [place] [facility] [place] [facility] Outpatient Encounter [id number] 03[facility] [place] [facility] Outpatient Encounter [id number] HERB,REKHA NDA J 04/03 [facility] Encounter [id number] 04/04 [place] [facility] [place] [facility] Outpatient Encounter [id number] 04/30 [place] [facility] [place] [facility] Outpatient Encounter [id number] REKHA ESTEVEZ NDA J 05/01 [place] [facility] [place] [facility] Outpatient Encounter [id number] 06/12 [place] [facility] [place] [facility] Outpatient Encounter [id number] 06/26 [place] [facility] OFFICE O/P NEW MOD 45 MIN [id number] [id number] 60 Diagnos is: ICD-10- CM C76.0 Maligna nt neoplas m of head, face and neck
DEREK PATTON 06/26 [facility] [place] [facility] Outpatient Encounter [id number] Diagnos is: ICD-10- CM C76.0 Maligna nt neoplas m of head, face and neck
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
ALLEGRA GOULD 07/23 [place] [facility] [place] [facility] Outpatient Encounter [id number] 07/24 [place] [facility] [place] [facility] OFFICE O/P NEW LOW 30 MIN [id number] [id number] Diagnos is: ICD-10- CM C76.0 Maligna nt neoplas m of head, face and neck
GLORIA-GR JOY,CURTIS RO E 08/14 [facility] IMMUNIZATI ON ADMIN [id number] 61 Diagnos is: ICD-10- CM Z23 Encount er for immuniz ation<b r/> POPLIN,CHANG INE D 09/02 [facility] [place] [facility] Outpatient Encounter [id number] 09/06 [facility] [place] [facility] Outpatient Encounter [id number] 09/30 [facility] [place] [facility] Outpatient Encounter [id number] 09/30 [facility] [place] [facility] ORAL FUNCTION THERAPY [id number] Diagnos is: ICD-10- CM C76.0 Maligna nt neoplas m of head, face and neck
Kemi LACEY RISAMINA L 09/30 [facility] Outpatient Encounter [id number] 10/07 [facility] Outpatient Encounter [id number] 10/11 [facility] PT EVAL LOW COMPLEX 20 MIN [id number] Diagnos is: ICD-10- CM G89.29 Other chronic pain
ADRI TORRES 11/27 [facility] Procedures Combined list of: 1) Procedures from [facility] facilities going back up to thelast 18 months, not all [place] non-surgical procedures are included; 2) All procedures from the Department of Defense facilities. Procedure Procedure Type Code Date Perfomer Comments Sour e AUDIOMETRIC TESTING OF GROUPS 12/19 DoD ANTHRAX VACCINE, FOR SUBCUTANEOUS OR INTRAMUSCULAR USE 10/24 [facility] ANTHRAX VACCINE, FOR SUBCUTANEOUS OR INTRAMUSCULAR USE 10/10 [facility] ANTHRAX VACCINE, FOR SUBCUTANEOUS OR INTRAMUSCULAR USE 09/18 [facility] IMMUNIZATION ADMINISTRATION (INCLUDES PERCUTANEOUS, INTRADERMAL, SUBCUTANEOUS, OR INTRAMUSCULAR INJECTIONS); EACH ADDITIONAL VACCINE (SINGLE OR COMBINATION VACCINE/TOXOID) 03/20 [facility] AUDIOMETRIC TESTING OF GROUPS 03/20 [facility] FITTING OF SPECTACLES, EXCEPT FOR APHAKIA; MONOFOCAL 03/19 [facility] DETERMINATION OF REFRACTIVE STATE 06/05 [facility] COLLECTION OF VENOUS BLOOD BY VENIPUNCTURE 06/01 [facility] AUDIOMETRIC TESTING OF GROUPS 06/01 [facility] TYPHOID VACCINE, ACETONE-KILLED, DRIED (AKD), FOR SUBCUTANEOUS USE (U.S. ) 06/08 [facility] SCREENING TEST OF VISUAL ACUITY, QUANTITATIVE, BILATERAL 06/08 [facility] DETERMINATION OF REFRACTIVE STATE 06/28 [facility] UNLISTED OTORHINOLARYNGOLOGICAL SERVICE OR PROCEDURE 06/14 [facility] TYPHOID VACCINE, ACETONE-KILLED, DRIED (AKD), FOR SUBCUTANEOUS USE (U.S. ) 12/01 [facility] CASE MANAGEMENT, EACH 15 MINUTES 02/20 [facility] CASE MANAGEMENT, EACH 15 MINUTES 02/16 [facility] MENTAL HEALTH SERVICES, NOT OTHERWISE SPECIFIED 02/08 [facility] CASE MANAGEMENT, EACH 15 MINUTES 02/07 [facility] CASE MANAGEMENT, EACH 15 MINUTES 02/01 [facility] CASE MANAGEMENT, EACH 15 MINUTES 01/23 [facility] MENTAL HEALTH SERVICES, NOT OTHERWISE SPECIFIED 01/18 [facility] MEDICATION THERAPY MANAGEMENT SERVICE(S) PROVIDED BY A PHARMACIST, INDIVIDUAL, [id number] WITH PATIENT, WITH ASSESSMENT AND INTERVENTION IF PROVIDED; INITIAL 15 MINUTES, ESTABLISHED PATIENT 01/16 [facility] CASE MANAGEMENT, EACH 15 MINUTES 01/15 DoD COORDINATED CARE FEE, RISK ADJUSTED MAINTENANCE, LEVEL 3 01/15 [facility] PSYCHOTHERAPY, 30 MINUTES WITH PATIENT 01/15 DoD COORDINATED CARE FEE, RISK ADJUSTED MAINTENANCE, LEVEL 3 01/08 DoD COORDINATED CARE FEE, RISK ADJUSTED MAINTENANCE, LEVEL 3 01/01 DoD COORDINATED CARE FEE, RISK ADJUSTED MAINTENANCE, LEVEL 3 12/26 DoD COORDINATED CARE FEE, RISK ADJUSTED MAINTENANCE, LEVEL 3 12/18 DoD CASE MANAGEMENT, EACH 15 MINUTES 12/12 DoD COORDINATED CARE FEE, RISK ADJUSTED MAINTENANCE, LEVEL 3 12/04 DoD COORDINATED CARE FEE, RISK ADJUSTED MAINTENANCE, LEVEL 3 11/29 [facility] COORDINATED CARE FEE, RISK ADJUSTED MAINTENANCE, LEVEL 3 11/21 [facility] MENTAL HEALTH SERVICES, NOT OTHERWISE SPECIFIED 11/15 [facility] PSYCHOTHERAPY, 30 MINUTES WITH PATIENT 11/15 DoD COMM/WRK REINTEGRAT TRAIN (EG,SHOPPING,TRANSPORT ATION,MONEY MANAGEMENT,AVOC ACT &/ WRK ENVIRON/MODIFICATION ANAL,WRK TASK ANAL,USE OF ASST TECHNOLOGY DEV/ADPT EQUIP),DIR ONE-ON-ONE CONT,EA 15 MINUTES 11/14 [facility] RE-EVAL,PHYSICAL THERAPY EST PLAN OF CARE,REQ:EXAM,REV,HX & USE,STAND TESTS &DEB REQ;REV PLAN OF CARE USING STAND PAT ASSESS INSTR &/DEB ASSESS FUNC OUTCOME TYP,20 MIN SPENT [id number] W PAT&/FAM 11/14 Do[facility] COORDINATED CARE FEE, RISK ADJUSTED MAINTENANCE, LEVEL 3 11/13 [facility] MEDICATION THERAPY MANAGEMENT SERVICE(S) PROVIDED BY A PHARMACIST, INDIVIDUAL, [id number] WITH PATIENT, WITH ASSESSMENT AND INTERVENTION IF PROVIDED; INITIAL 15 MINUTES, ESTABLISHED PATIENT 11/13 [facility] TELE ASSESS & MGT SRV PROV QUAL NONPHYS HLTH CARE PRO TO EST PAT,PARENT,GUARD NOT ORIG REL ASSESS & MGT SRV PROV W/IN PREV 7 DAYS NOR LEAD ASSESS & MGT SRV/PX W/IN NXT 24H/SOON APT; 11-20 MIN MED DIS 11/08 DoD COORDINATED CARE FEE, RISK ADJUSTED MAINTENANCE, LEVEL 3 11/06 DoD COORDINATED CARE FEE, RISK ADJUSTED MAINTENANCE, LEVEL 3 10/31 DoD COORDINATED CARE FEE, RISK ADJUSTED MAINTENANCE, LEVEL 3 10/24 DoD COORDINATED CARE FEE, RISK ADJUSTED MAINTENANCE, LEVEL 3 10/18 DoD COORDINATED CARE FEE, RISK ADJUSTED MAINTENANCE, LEVEL 3 10/09 DoD COORDINATED CARE FEE, RISK ADJUSTED MAINTENANCE, LEVEL 3 10/03 DoD PSYCHOTHERAPY, 30 MINUTES WITH PATIENT 09/28 [facility] CASE MANAGEMENT, EACH 15 MINUTES 09/26 DoD COORDINATED CARE FEE, RISK ADJUSTED MAINTENANCE 09/22 DoD COORDINATED CARE FEE, MAINTENANCE RATE 09/19 DoD COORDINATED CARE FEE, RISK ADJUSTED MAINTENANCE, LEVEL 3 09/04 DoD COORDINATED CARE FEE, RISK ADJUSTED MAINTENANCE, LEVEL 3 08/29 DoD COORDINATED CARE FEE, RISK ADJUSTED MAINTENANCE, LEVEL 3 08/21 [facility] DEVELOPMENT OF COGNITIVE SKILLS TO IMPROVE ATTENTION, MEMORY, PROBLEM SOLVING (INCLUDES COMPENSATORY TRAINING), DIRECT (ONE-ON-ONE) PATIENT CONTACT, EACH 15 MINUTES 08/09 DoD MEDICATION THERAPY MGT SERVICE(S) PROVIDED,A PHARMACIST,ARIS,FACE- TO-FACE W PATIENT,WITH ASSESS & INTERVENE IF PROVIDED;EA ADDITION 15 MINUTES (LIST SEPARATELY IN ADDITION TO CODE FOR PRIM SERVICE) 08/08 DoD PSYCHOTHERAPY, 30 MINUTES WITH PATIENT 08/08 DoD COORDINATED CARE FEE, RISK ADJUSTED MAINTENANCE, LEVEL 3 08/07 DoD COORDINATED CARE FEE, RISK ADJUSTED MAINTENANCE, LEVEL 3 07/31 DoD COORDINATED CARE FEE, RISK ADJUSTED MAINTENANCE, LEVEL 3 07/25 DoD COORDINATED CARE FEE, RISK ADJUSTED MAINTENANCE, LEVEL 3 07/13 DoD TELE ASSESS & MGT SRV PROV QUAL NONPHYS HLTH CARE PRO TO EST PAT,PARENT,GUARD NOT ORIG REL ASSESS & MGT SRV PROV W/IN PREV 7 DAYS NOR LEAD ASSESS & MGT SRV/PX W/IN NXT 24 HR/SOON APT;5-10 MIN MED DIS 07/07 DoD COORDINATED CARE FEE, RISK ADJUSTED MAINTENANCE, LEVEL 3 07/05 DoD MENTAL HEALTH SERVICES, NOT OTHERWISE SPECIFIED 06/29 DoD COORDINATED CARE FEE, RISK ADJUSTED MAINTENANCE, LEVEL 3 06/27 DoD COORDINATED CARE FEE, RISK ADJUSTED MAINTENANCE, LEVEL 3 06/21 DoD COORDINATED CARE FEE, RISK ADJUSTED MAINTENANCE, LEVEL 3 06/12 [facility] MENTAL HEALTH SERVICES, NOT OTHERWISE SPECIFIED 06/08 DoD COORDINATED CARE FEE, RISK ADJUSTED MAINTENANCE, LEVEL 3 06/06 DoD CASE MANAGEMENT, EACH 15 MINUTES 05/29 DoD COORDINATED CARE FEE, RISK ADJUSTED MAINTENANCE, LEVEL 3 05/22 DoD COORDINATED CARE FEE, RISK ADJUSTED MAINTENANCE, LEVEL 3 05/18 DoD COORDINATED CARE FEE, RISK ADJUSTED MAINTENANCE, LEVEL 3 05/11 DoD CASE MANAGEMENT, EACH 15 MINUTES 05/02 DoD COORDINATED CARE FEE, RISK ADJUSTED MAINTENANCE, LEVEL 3 04/24 DoD COORDINATED CARE FEE, RISK ADJUSTED MAINTENANCE, LEVEL 3 04/18 DoD PHYSICAL THERAPY RE-EVALUATION 04/11 DoD PSYCHOTHERAPY, 30 MINUTES WITH PATIENT 04/11 DoD FITTING OF SPECTACLES, EXCEPT FOR APHAKIA; BIFOCAL 04/11 DoD COORDINATED CARE FEE, RISK ADJUSTED MAINTENANCE, LEVEL 3 04/10 [facility] MEDICATION THERAPY MANAGEMENT SERVICE(S) PROVIDED BY A PHARMACIST, INDIVIDUAL, [id number] WITH PATIENT, WITH ASSESSMENT AND INTERVENTION IF PROVIDED; INITIAL 15 MINUTES, ESTABLISHED PATIENT 04/10 DoD COORDINATED CARE FEE, RISK ADJUSTED MAINTENANCE, LEVEL 3 04/06 DoD COORDINATED CARE FEE, RISK ADJUSTED MAINTENANCE, LEVEL 3 03/31 DoD COORDINATED CARE FEE, RISK ADJUSTED MAINTENANCE, LEVEL 3 03/20 DoD COORDINATED CARE FEE, RISK ADJUSTED MAINTENANCE, LEVEL 3 03/14 DoD TELE ASSESS & MGT SRV PROV QUAL NONPHYS HLTH CARE PRO TO EST PAT,PARENT,GUARD NOT ORIG REL ASSESS & MGT SRV PROV W/IN PREV 7 DAYS NOR LEAD ASSESS & MGT SRV/PX W/IN NXT 24 HR/SOON APT;5-10 MIN MED DIS 03/13 DoD CASE MANAGEMENT, EACH 15 MINUTES 03/06 DoD COORDINATED CARE FEE, RISK ADJUSTED MAINTENANCE, LEVEL 3 03/02 DoD COORDINATED CARE FEE, RISK ADJUSTED MAINTENANCE, LEVEL 3 02/21 DoD CASE MANAGEMENT, EACH 15 MINUTES 02/17 DoD CASE MANAGEMENT, EACH 15 MINUTES 02/08 DoD CASE MANAGEMENT, EACH 15 MINUTES 02/01 [facility] THERAPEUTIC PROCEDURE(S), GROUP (2 OR MORE INDIVIDUALS) 01/16 DoD COORDINATED CARE FEE, RISK ADJUSTED MAINTENANCE 01/16 DoD COMM/WRK REINTEGRAT TRAIN (EG,SHOPPING,TRANSPORT ATION,MONEY MANAGEMENT,AVOC ACT &/ WRK ENVIRON/MODIFICATION ANAL,WRK TASK ANAL,USE OF ASST TECHNOLOGY DEV/ADPT EQUIP),DIR ONE-ON-ONE CONT,EA 15 MINUTES 01/11 [facility] PHYSICAL THERAPY RE-EVALUATION 01/11 DoD MEDICATION THERAPY MANAGEMENT SERVICE(S) PROVIDED BY A PHARMACIST, INDIVIDUAL, [id number] WITH PATIENT, WITH ASSESSMENT AND INTERVENTION IF PROVIDED; INITIAL 15 MINUTES, ESTABLISHED PATIENT 01/10 DoD CASE MANAGEMENT, EACH 15 MINUTES 01/09 [facility] PSYCHIATRIC EVALUATION OF HOSPITAL RECORDS, OTHER PSYCHIATRIC REPORTS, PSYCHOMETRIC AND/OR PROJECTIVE TESTS, AND OTHER ACCUMULATED DATA FOR MEDICALDIAGNOSTIC PURPOSES 01/09 DoD COORDINATED CARE FEE, RISK ADJUSTED MAINTENANCE, LEVEL 3 01/02 DoD THERAPEUTIC PROCEDURE(S), GROUP (2 OR MORE INDIVIDUALS) 12/27 DoD COORDINATED CARE FEE, RISK ADJUSTED MAINTENANCE, LEVEL 3 12/27 DoD THERAPEUTIC PROCEDURE(S), GROUP (2 OR MORE INDIVIDUALS) 12/26 DoD ACOUSTIC REFLEX TESTING, THRESHOLD 12/22 DoD COORDINATED CARE FEE, RISK ADJUSTED MAINTENANCE, LEVEL 3 12/21 DoD ENVIRONMENTAL INTERVENTION FOR MEDICAL MGMT PURPOSES ON A PSYCHIATRIC PATIENT'S BEHALF WITH AGENCIES, EMPLOYERS, OR INSTITUTIONS 12/15 DoD COORDINATED CARE FEE, RISK ADJUSTED MAINTENANCE, LEVEL 3 12/13 DoD THERAPEUTIC PROCEDURE(S), GROUP (2 OR MORE INDIVIDUALS) 12/12 DoD MEDICATION THERAPY MANAGEMENT SERVICE(S) PROVIDED BY A PHARMACIST, INDIVIDUAL, [id number] WITH PATIENT, WITH ASSESSMENT AND INTERVENTION IF PROVIDED; INITIAL 15 MINUTES, ESTABLISHED PATIENT 12/12 DoD PSYCHOTHERAPY, 60 MINUTES WITH PATIENT 12/07 DoD COORDINATED CARE FEE, RISK ADJUSTED MAINTENANCE, LEVEL 3 12/06 DoD THERAPEUTIC PROCEDURE(S), GROUP (2 OR MORE INDIVIDUALS) 12/05 DoD COORDINATED CARE FEE, RISK ADJUSTED MAINTENANCE, LEVEL 3 12/01 DoD COORDINATED CARE FEE, RISK ADJUSTED MAINTENANCE, LEVEL 3 11/23 DoD COORDINATED CARE FEE, RISK ADJUSTED MAINTENANCE, LEVEL 3 11/15 DoD COORDINATED CARE FEE, RISK ADJUSTED MAINTENANCE, LEVEL 3 11/10 DoD PSYCHOTHERAPY, 60 MINUTES WITH PATIENT 11/10 DoD THERAPEUTIC PROCEDURE(S), GROUP (2 OR MORE INDIVIDUALS) 11/07 DoD CASE MANAGEMENT, EACH 15 MINUTES 11/07 DoD CASE MANAGEMENT, EACH 15 MINUTES 11/01 DoD THERAPEUTIC PROCEDURE(S), GROUP (2 OR MORE INDIVIDUALS) 10/31 [facility] PHYSICAL THERAPY EVALUATION 10/31 DoD CASE MANAGEMENT, EACH 15 MINUTES 10/26 DoD PURE TONE AUDIOMETRY (THRESHOLD); AIR ONLY 10/25 DoD COMM/WRK REINTEGRAT TRAIN (EG,SHOPPING,TRANSPORT ATION,MONEY MANAGEMENT,AVOC ACT &/ WRK ENVIRON/MODIFICATION ANAL,WRK TASK ANAL,USE OF ASST TECHNOLOGY DEV/ADPT EQUIP),DIR ONE-ON-ONE CONT,EA 15 MINUTES 10/24 DoD CASE MANAGEMENT, EACH 15 MINUTES 10/20 DoD MEDICATION THERAPY MANAGEMENT SERVICE(S) PROVIDED BY A PHARMACIST, INDIVIDUAL, [id number] WITH PATIENT, WITH ASSESSMENT AND INTERVENTION IF PROVIDED; INITIAL 15 MINUTES, NEW PATIENT 10/18 DoD PSYCHIATRIC DIAGNOSTIC EVALUATION 10/12 DoD CASE MANAGEMENT, EACH 15 MINUTES 10/12 DoD COORDINATED CARE FEE, MAINTENANCE RATE 10/12 DoD SKIN TEST; TUBERCULOSIS, INTRADERMAL 09/08 [facility] PURE TONE AUDIOMETRY (THRESHOLD); AIR ONLY 09/08 [facility] FINE NEEDLE ASPIRATION; WITH IMAGING GUIDANCE 11/10 DoD CASE MANAGEMENT, EACH 15 MINUTES 10/10 DoD CASE MANAGEMENT, EACH 15 MINUTES 10/03 DoD THERAPEUTIC PROCEDURE, 1 OR MORE AREAS, EACH 15 MINUTES; THERAPEUTIC EXERCISES TO DEVELOP STRENGTH AND ENDURANCE, RANGE OF MOTION AND FLEXIBILITY 09/26 DoD CASE MANAGEMENT, EACH 15 MINUTES 09/26 DoD PSYCHOTHERAPY, 45 MINUTES WITH PATIENT 09/20 DoD CASE MANAGEMENT, EACH 15 MINUTES 09/19 DoD THERAPEUTIC PROCEDURE, 1 OR MORE AREAS, EACH 15 MINUTES; THERAPEUTIC EXERCISES TO DEVELOP STRENGTH AND ENDURANCE, RANGE OF MOTION AND FLEXIBILITY 09/14 DoD PSYCHOTHERAPY, 45 MINUTES WITH PATIENT 09/13 DoD CASE MANAGEMENT, EACH 15 MINUTES 09/12 DoD LARYNGOSCOPY, FLEXIBLE; DIAGNOSTIC 09/05 DoD CASE MANAGEMENT, EACH 15 MINUTES 09/05 DoD CASE MANAGEMENT, EACH 15 MINUTES 08/29 DoD CASE MANAGEMENT, EACH 15 MINUTES 08/25 DoD PSYCHOTHERAPY, 45 MINUTES WITH PATIENT 08/24 DoD CASE MANAGEMENT, EACH 15 MINUTES 08/17 DoD CASE MANAGEMENT, EACH 15 MINUTES 08/08 DoD PSYCHOTHERAPY, 45 MINUTES WITH PATIENT 08/02 DoD LARYNGOSCOPY, FLEXIBLE; DIAGNOSTIC 08/01 DoD CASE MANAGEMENT, EACH 15 MINUTES 08/01 DoD PSYCHOTHERAPY, 45 MINUTES WITH PATIENT 07/26 DoD CASE MANAGEMENT, EACH 15 MINUTES 07/26 DoD CASE MANAGEMENT, EACH 15 MINUTES 07/25 DoD CASE MANAGEMENT, EACH 15 MINUTES 07/18 DoD COORDINATED CARE FEE, RISK ADJUSTED MAINTENANCE, LEVEL 4 07/13 DoD PSYCHOTHERAPY, 45 MINUTES WITH PATIENT 07/12 DoD CASE MANAGEMENT, EACH 15 MINUTES 07/06 DoD PSYCHOTHERAPY, 45 MINUTES WITH PATIENT 06/28 DoD CASE MANAGEMENT, EACH 15 MINUTES 06/27 DoD PSYCHOTHERAPY, 45 MINUTES WITH PATIENT 06/21 DoD CASE MANAGEMENT, EACH 15 MINUTES 06/20 DoD PSYCHOTHERAPY, 45 MINUTES WITH PATIENT 06/14 DoD COORDINATED CARE FEE, RISK ADJUSTED MAINTENANCE, LEVEL 3 06/13 DoD MEDICAL NUTRITION THERAPY; RE-ASSESSMENT AND INTERVENTION, INDIVIDUAL, [id number] WITH THE PATIENT, EACH 15 MINUTES 06/10 DoD PSYCHOTHERAPY, 45 MINUTES WITH PATIENT 06/07 DoD COORDINATED CARE FEE, RISK ADJUSTED MAINTENANCE, LEVEL 5 06/06 DoD MEDICAL NUTRITION THERAPY; RE-ASSESSMENT AND INTERVENTION, INDIVIDUAL, [id number] WITH THE PATIENT, EACH 15 MINUTES 06/03 DoD COORDINATED CARE FEE, RISK ADJUSTED MAINTENANCE, LEVEL 3 05/30 DoD MEDICAL NUTRITION THERAPY; RE-ASSESSMENT AND INTERVENTION, INDIVIDUAL, [id number] WITH THE PATIENT, EACH 15 MINUTES 05/24 DoD PSYCHOTHERAPY, 45 MINUTES WITH PATIENT 05/24 [facility] LARYNGOSCOPY, FLEXIBLE; DIAGNOSTIC 05/23 DoD PSYCHOTHERAPY, 45 MINUTES WITH PATIENT 05/18 DoD MEDICAL NUTRITION THERAPY; RE-ASSESSMENT AND INTERVENTION, INDIVIDUAL, [id number] WITH THE PATIENT, EACH 15 MINUTES 05/17 DoD COORDINATED CARE FEE, MAINTENANCE RATE 05/16 DoD CASE MANAGEMENT, EACH 15 MINUTES 05/10 DoD PSYCHOTHERAPY, 45 MINUTES WITH PATIENT 05/10 DoD COORDINATED CARE FEE, RISK ADJUSTED MAINTENANCE, LEVEL 3 05/10 DoD CASE MANAGEMENT, EACH 15 MINUTES 05/04 [facility] ULTRASOUND, SOFT TISSUES OF HEAD AND NECK (EG, THYROID, PARATHYROID, PAROTID), REAL TIME WITH IMAGE DOCUMENTATION 04/26 DoD PSYCHOTHERAPY, 45 MINUTES WITH PATIENT 04/26 DoD COORDINATED CARE FEE, RISK ADJUSTED MAINTENANCE 04/25 DoD MEDICAL NUTRITION THERAPY; RE-ASSESSMENT AND INTERVENTION, INDIVIDUAL, [id number] WITH THE PATIENT, EACH 15 MINUTES 04/22 DoD PSYCHOTHERAPY, 45 MINUTES WITH PATIENT 04/20 DoD COORDINATED CARE FEE, MAINTENANCE RATE 04/18 DoD MEDICAL NUTRITION THERAPY; RE-ASSESSMENT AND INTERVENTION, INDIVIDUAL, [id number] WITH THE PATIENT, EACH 15 MINUTES 04/12 DoD COORDINATED CARE FEE, RISK ADJUSTED MAINTENANCE, LEVEL 5 [facility] EDUCATION &TRAINING, PATIENT SELF-MGT QUALIFIED, 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 HEALTH COLLIERY CLERK USING STDIZED CURRICULUM, [id number] W THE PATIENT (COULD INCL CAREGIVER/FAMILY) EA 30 MIN; INDIVIDUAL PATIENT 04/06 DoD COORDINATED CARE FEE, RISK ADJUSTED MAINTENANCE, LEVEL 4 04/05 DoD COORDINATED CARE FEE, RISK ADJUSTED MAINTENANCE, LEVEL 3 03/30 [facility] CASE MANAGEMENT, EACH 15 MINUTES 03/23 DoD COORDINATED CARE FEE, MAINTENANCE RATE 03/15 DoD COORDINATED CARE FEE, RISK ADJUSTED MAINTENANCE, LEVEL 4 03/09 DoD COORDINATED CARE FEE, RISK ADJUSTED MAINTENANCE, LEVEL 4 03/08 DoD COORDINATED CARE FEE, RISK ADJUSTED MAINTENANCE, LEVEL 4 03/03 DoD COORDINATED CARE FEE, RISK ADJUSTED MAINTENANCE, LEVEL 3 02/22 [facility] COORDINATED CARE FEE, RISK ADJUSTED MAINTENANCE 02/15 [facility] INTENSITY MODULATED RADIATION TREATMENT DELIVERY (IMRT), INCLUDES GUIDANCE AND TRACKING, WHEN PERFORMED; COMPLEX 02/10 [facility] SPEECH AUDIOMETRY THRESHOLD; WITH SPEECH RECOGNITION 02/09 [facility] INTRAVENOUS INFUSION, HYDRATION; INITIAL, 31 MINUTES TO 1 HOUR 02/09 [facility] INTENSITY MODULATED RADIATION TREATMENT DELIVERY (IMRT), INCLUDES GUIDANCE AND TRACKING, WHEN PERFORMED; SIMPLE 02/09 [facility] INTRAVENOUS INFUSION, HYDRATION; INITIAL, 31 MINUTES TO 1 HOUR 02/08 [facility] COORDINATED CARE FEE, RISK ADJUSTED MAINTENANCE, LEVEL 5 02/08 [facility] INTENSITY MODULATED RADIATION TREATMENT DELIVERY (IMRT), INCLUDES GUIDANCE AND TRACKING, WHEN PERFORMED; COMPLEX 02/08 [facility] BASIC RAD DOSIMETRY CALC,CENTRL AXIS DPTH DOS CALC,TDF,NSD,GAP CALC,OFF AXIS FACTOR,TISS INHOMOGENEITY FACTORS,CALC,NON-IONIZ ING RAD SURF&DEPTH DOS, REQD COURSE,TX, WHEN PRESCRIBED TREAT PHYS 02/04 [facility] CONTINUING MEDICAL PHYSICS CONSULT, INCL ASSESSMENT OF TREAT PARAMETERS, MUFFLE OPERATOR OF DOSE DELIVERY, & REVIEW OF PATIENT TREAT DOC IN SUPP OF THE RAD ONCOLOGIST, REPORTED PER WEEK OF THERAPY 02/03 [facility] COORDINATED CARE FEE, RISK ADJUSTED MAINTENANCE, LEVEL 5 02/02 [facility] INTENSITY MODULATED RADIATION TREATMENT DELIVERY (IMRT), INCLUDES GUIDANCE AND TRACKING, WHEN PERFORMED; SIMPLE 02/02 [facility] COORDINATED CARE FEE, RISK ADJUSTED MAINTENANCE, LEVEL 5 02/01 [facility] UNCLASSIFIED DRUGS 02/01 [facility] INTENSITY MODULATED RADIATION TREATMENT DELIVERY (IMRT), INCLUDES GUIDANCE AND TRACKING, WHEN PERFORMED; COMPLEX 02/01 [facility] INTRAVENOUS INFUSION, HYDRATION; INITIAL, 31 MINUTES TO 1 HOUR 01/29 [facility] INTENSITY MODULATED RADIATION TREATMENT DELIVERY (IMRT), INCLUDES GUIDANCE AND TRACKING, WHEN PERFORMED; SIMPLE 01/29 [facility] INTRAVENOUS INFUSION, HYDRATION; INITIAL, 31 MINUTES TO 1 HOUR 01/28 [facility] INTENSITY MODULATED RADIATION TREATMENT DELIVERY (IMRT), INCLUDES GUIDANCE AND TRACKING, WHEN PERFORMED; COMPLEX 01/28 [facility] INTRAVENOUS INFUSION, HYDRATION; INITIAL, 31 MINUTES TO 1 HOUR 01/27 [facility] CONTINUING MEDICAL PHYSICS CONSULT, INCL ASSESSMENT OF TREAT PARAMETERS, MUFFLE OPERATOR OF DOSE DELIVERY, & REVIEW OF PATIENT TREAT DOC IN SUPP OF THE RAD ONCOLOGIST, REPORTED PER WEEK OF THERAPY 01/27 [facility] GASTRIC INTUBATION AND ASPIRATION(S) THERAPEUTIC, NECESSITATING PHYSICIAN'S SKILL (EG, FOR GASTROINTESTINAL HEMORRHAGE), INCLUDING LAVAGE IF PERFORMED 01/26 [facility] INTRAVENOUS INFUSION, HYDRATION; INITIAL, 31 MINUTES TO 1 HOUR 01/26 [facility] INTENSITY MODULATED RADIATION TREATMENT DELIVERY (IMRT), INCLUDES GUIDANCE AND TRACKING, WHEN PERFORMED; COMPLEX 01/26 [facility] COORDINATED CARE FEE, RISK ADJUSTED MAINTENANCE, LEVEL 5 01/25 [facility] INTRAVENOUS INFUSION, HYDRATION; INITIAL, 31 MINUTES TO 1 HOUR 01/25 [facility] INTENSITY MODULATED RADIATION TREATMENT DELIVERY (IMRT), INCLUDES GUIDANCE AND TRACKING, WHEN PERFORMED; SIMPLE 01/25 [facility] PSYCHOTHERAPY, 45 MINUTES WITH PATIENT 01/22 [facility] INTRAVENOUS INFUSION, HYDRATION; INITIAL, 31 MINUTES TO 1 HOUR 01/22 [facility] GUIDANCE FOR LOCALIZATION OF TARGET VOLUME FOR DELIVERY OF RADIATION TREATMENT, INCLUDES INTRAFRACTION TRACKING, WHEN PERFORMED 01/22 [facility] COLLECTION OF BLOOD SPECIMEN USING ESTABLISHED CENTRAL OR PERIPHERAL CATHETER, VENOUS, NOT OTHERWISE SPECIFIED 01/21 [facility] TREATMENT DEVICES, DESIGN AND CONSTRUCTION; COMPLEX (IRREGULAR BLOCKS, SPECIAL BIRCH, COMPENSATORS, WEDGES, MOLDS OR CASTS) 01/21 [facility] MEDICAL NUTRITION THERAPY; INITIAL ASSESSMENT AND INTERVENTION, INDIVIDUAL, [id number] WITH THE PATIENT, EACH 15 MINUTES 01/20 [facility] INTRAVENOUS INFUSION, HYDRATION; INITIAL, 31 MINUTES TO 1 HOUR 01/20 [facility] INTENSITY MODULATED RADIATION TREATMENT DELIVERY (IMRT), INCLUDES GUIDANCE AND TRACKING, WHEN PERFORMED; COMPLEX 01/20 [facility] INTRAVENOUS INFUSION, HYDRATION; INITIAL, 31 MINUTES TO 1 HOUR 01/19 [facility] EDUCATION &TRAINING, PATIENT SELF-MGT QUALIFIED, 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 HEALTH COLLIERY CLERK USING STDIZED CURRICULUM, [id number] W THE PATIENT (COULD INCL CAREGIVER/FAMILY) EA 30 MIN; INDIVIDUAL PATIENT 01/19 [facility] INTENSITY MODULATED RADIATION TREATMENT DELIVERY (IMRT), INCLUDES GUIDANCE AND TRACKING, WHEN PERFORMED; SIMPLE 01/19 DoD COORDINATED CARE FEE, RISK ADJUSTED MAINTENANCE, LEVEL 4 01/18 [facility] INTRAVENOUS INFUSION, HYDRATION; EACH ADDITIONAL HOUR (LIST SEPARATELY IN ADDITION TO CODE FOR PRIMARY PROCEDURE) 01/18 [facility] [place] INTENSITY MODULATED RADIATION TREATMENT DELIVERY (IMRT), INCLUDES GUIDANCE AND TRACKING, WHEN PERFORMED; SIMPLE 01/18 [facility] [place] INJECTION, ONDANSETRON HCL, PER 1 MG 01/17 [facility] [place] INTENSITY MODULATED RADIATION TREATMENT DELIVERY (IMRT), INCLUDES GUIDANCE AND TRACKING, WHEN PERFORMED; SIMPLE 01/15 [facility] [place] INTRAVENOUS INFUSION, HYDRATION; EACH ADDITIONAL HOUR (LIST SEPARATELY IN ADDITION TO CODE FOR PRIMARY PROCEDURE) 01/14 [facility] [place] COORDINATED CARE FEE, RISK ADJUSTED MAINTENANCE 01/14 [facility] [place] INTENSITY MODULATED RADIATION TREATMENT DELIVERY (IMRT), INCLUDES GUIDANCE AND TRACKING, WHEN PERFORMED; SIMPLE 01/14 [facility] [place] INTENSITY MODULATED RADIATION TREATMENT DELIVERY (IMRT), INCLUDES GUIDANCE AND TRACKING, WHEN PERFORMED; SIMPLE 01/13 [facility] [place] INTRAVENOUS INFUSION, HYDRATION; EACH ADDITIONAL HOUR (LIST SEPARATELY IN ADDITION TO CODE FOR PRIMARY PROCEDURE) 01/12 [facility] [place] INTENSITY MODULATED RADIATION TREATMENT DELIVERY (IMRT), INCLUDES GUIDANCE AND TRACKING, WHEN PERFORMED; COMPLEX 01/12 [facility] [place] HEALTH&BEHAV ASSESSMENT (EG, HEALTH-FOC CLINICAL INTERVIEW, BEHAVIORAL OBSERVATIONS, PSYCHOPHYSICOLOGICAL MONITOR, HEALTH-ORIENT QUESTIONNAIRES), EA 15 MIN [id number] W THE PATIENT; INIT ASSESSMENT 01/11 [facility] [place] INTRAVENOUS INFUSION, FOR THERAPY, PROPHYLAXIS, OR DIAGNOSIS (SPECIFY SUBSTANCE OR DRUG); EACH ADDITIONAL HOUR (LIST SEPARATELY IN ADDITION TO CODE FOR PRIMARY PROCEDURE) 01/11 [facility] [place] INTENSITY MODULATED RADIATION TREATMENT DELIVERY (IMRT), INCLUDES GUIDANCE AND TRACKING, WHEN PERFORMED; SIMPLE 01/11 [facility] [place] URINALYSIS, BY DIP STICK OR TABLET REAGENT FOR BILIRUBIN, GLUCOSE, HEMOGLOBIN, KETONES, LEUKOCYTES, NITRITE, PH, PROTEIN, SPEC GRAVITY, UROBILINOGEN, ANY NUMBER OF CONSTITUENTS; W/O MICRO, NON-AUTO 01/09 [facility] [place] INTENSITY MODULATED RADIATION TREATMENT DELIVERY (IMRT), INCLUDES GUIDANCE AND TRACKING, WHEN PERFORMED; SIMPLE 01/08 [facility] [place] INTENSITY MODULATED RADIATION TREATMENT DELIVERY (IMRT), INCLUDES GUIDANCE AND TRACKING, WHEN PERFORMED; COMPLEX 01/06 [facility] [place] INTRAVENOUS INFUSION, HYDRATION; INITIAL, 31 MINUTES TO 1 HOUR 01/05 [facility] MEDICAL NUTRITION THERAPY; INITIAL ASSESSMENT AND INTERVENTION, INDIVIDUAL, [id number] WITH THE PATIENT, EACH 15 MINUTES 01/05 [facility] INTENSITY MODULATED RADIATION TREATMENT DELIVERY (IMRT), INCLUDES GUIDANCE AND TRACKING, WHEN PERFORMED; SIMPLE 01/05 [facility] CASE MANAGEMENT, EACH 15 MINUTES 01/04 [facility] COORDINATED CARE FEE, RISK ADJUSTED MAINTENANCE, LEVEL 4 01/04 [facility] INTENSITY MODULATED RADIATION TREATMENT DELIVERY (IMRT), INCLUDES GUIDANCE AND TRACKING, WHEN PERFORMED; COMPLEX 01/04 [facility] CASE MANAGEMENT, EACH 15 MINUTES 01/01 [facility] INTENSITY MODULATED RADIATION TREATMENT DELIVERY (IMRT), INCLUDES GUIDANCE AND TRACKING, WHEN PERFORMED; COMPLEX 01/01 [facility] INTENSITY MODULATED RADIATION TREATMENT DELIVERY (IMRT), INCLUDES GUIDANCE AND TRACKING, WHEN PERFORMED; COMPLEX 12/31 [facility] SCREENING TEST OF VISUAL ACUITY, QUANTITATIVE, BILATERAL 12/31 [facility] DISTORTION PRODUCT EVOKED OTOACOUSTIC EMISSIONS;COMPREHENSIV E DIAG EVALUATION (QUANTITATIVE ANALYSIS OF OUTER HAIR CELL FUNCTION,COCHLEAR MAPPING,MINIMUM OF 12 FREQUENCIES),W INTERPRETATION &REPORT 12/30 [facility] INTENSITY MODULATED RADIATION TREATMENT DELIVERY (IMRT), INCLUDES GUIDANCE AND TRACKING, WHEN PERFORMED; COMPLEX 12/30 [facility] CASE MANAGEMENT, EACH 15 MINUTES 12/29 [facility] INTRAVENOUS INFUSION, HYDRATION; INITIAL, 31 MINUTES TO 1 HOUR 12/29 [facility] INTENSITY MODULATED RADIATION TREATMENT DELIVERY (IMRT), INCLUDES GUIDANCE AND TRACKING, WHEN PERFORMED; SIMPLE 12/29 [facility] INTENSITY MODULATED RADIATION TREATMENT DELIVERY (IMRT), INCLUDES GUIDANCE AND TRACKING, WHEN PERFORMED; SIMPLE 12/28 [facility] INTENSITY MODULATED RADIATION TREATMENT DELIVERY (IMRT), INCLUDES GUIDANCE AND TRACKING, WHEN PERFORMED; COMPLEX 12/25 [facility] INTRAVENOUS INFUSION, HYDRATION; INITIAL, 31 MINUTES TO 1 HOUR 12/24 [facility] COORDINATED CARE FEE, RISK ADJUSTED MAINTENANCE, LEVEL 3 12/24 [facility] SPECIAL MEDICAL RADIATION PHYSICS CONSULTATION 12/24 [facility] INTRAVENOUS INFUSION, HYDRATION; EACH ADDITIONAL HOUR (LIST SEPARATELY IN ADDITION TO CODE FOR PRIMARY PROCEDURE) 12/22 [facility] INTENSITY MODULATED RADIATION TREATMENT DELIVERY (IMRT), INCLUDES GUIDANCE AND TRACKING, WHEN PERFORMED; COMPLEX 12/22 [facility] MEDICAL NUTRITION THERAPY; INITIAL ASSESSMENT AND INTERVENTION, INDIVIDUAL, [id number] WITH THE PATIENT, EACH 15 MINUTES 12/21 [facility] THERAPEUTIC,PROPHYLACT IC,OR DIAGNOSTIC INJECTION (SPECIFY SUBSTANCE/DRUG);EA ADDITIONAL SEQUENTIAL INTRAVENOUS PUSH OF A NEW SUBSTANCE/DRUG (LIST SEPARATELY IN ADDITION TO CODE FOR PRIMARY PROCEDURE) 12/21 [facility] INSERTION OF PERIPHERALLY INSERTED CENTRAL VENOUS CATHETER (PICC), WITHOUT SUBCUTANEOUS PORT OR PUMP, WITHOUT IMAGING GUIDANCE; AGE 5 YEARS OR OLDER 12/21 [facility] GUIDANCE FOR LOCALIZATION OF TARGET VOLUME FOR DELIVERY OF RADIATION TREATMENT, INCLUDES INTRAFRACTION TRACKING, WHEN PERFORMED 12/21 [facility] IMMUNIZATION ADMINISTRATION (INCLUDES PERCUTANEOUS, INTRADERMAL, SUBCUTANEOUS, OR INTRAMUSCULAR INJECTIONS); 1 VACCINE (SINGLE OR COMBINATION VACCINE/TOXOID) 12/17 [facility] MEDICAL NUTRITION THERAPY; GROUP (2 OR MORE INDIVIDUAL(S)), EACH 30 MINUTES 12/16 [facility] CASE MANAGEMENT, EACH 15 MINUTES 12/14 [facility] INTRODUCTION OF NUTRITIONAL SUBSTANCE INTO UPPER GI, VIA NATURAL OR ARTIFICIAL OPENING 12/11 [facility] EXCISION OF ANTERIOR NECK SUBCUTANEOUS TISSUE AND FASCIA, PERCUTANEOUS APPROACH 12/11 [facility] REMOVAL OF FEEDING DEVICE FROM STOMACH, VIA NATURAL OR ARTIFICIAL OPENING ENDOSCOPIC 12/11 [facility] INSERTION OF FEEDING DEVICE INTO STOMACH, VIA NATURAL OR ARTIFICIAL OPENING ENDOSCOPIC 12/11 [facility] INSERTION OF FEEDING DEVICE INTO STOMACH, PERCUTANEOUS APPROACH 12/11 [facility] 3D RENDERING W INTERPRET &REPORTING OF COMPUTED TOMOGR,MAG RES IMG,ULTRASND,OR OTH TOMOGR MODALITY W IMAG POSTPROCESS UNDER CONCURR SUPERVISION;REQUIRING IMAG POSTPROCESS ON AN INDEPENDEN WRKSTATION 12/11 [facility] POSTOPERATIVE FOLLOW-UP VISIT, NORMALLY INCLUDED IN THE SURGICAL PACKAGE, INDICATE THAT EVALUATION & MANAGEMENT SERVICE WAS PERFORMED DURING A POSTOPERATIVE PERIOD REASON RELATED ORIGINAL PROCEDURE 12/11 [facility] FINE NEEDLE ASPIRATION; WITH IMAGING GUIDANCE 12/10 [facility] UNLISTED SPECIAL SERVICE, PROCEDURE OR REPORT 12/10 [facility] CASE MANAGEMENT, EACH 15 MINUTES 12/07 [facility] HEALTH AND BEHAVIOR INTERVENTION, EACH 15 MINUTES, [id number]; GROUP (2 OR MORE PATIENTS) 12/02 [facility] CASE MANAGEMENT, EACH 15 MINUTES 11/30 [facility] UNLISTED SPECIAL SERVICE, PROCEDURE OR REPORT 11/26 [facility] EDUCATIONAL SUPPLIES, SUCH BOOKS, TAPES, AND PAMPHLETS, FOR THE PATIENT'S EDUCATION AT COST TO PHYSICIAN OR OTHER QUALIFIED HEALTH COLLIERY CLERK 11/25 [facility] CASE MANAGEMENT, EACH 15 MINUTES 11/24 [facility] IMMUNIZATION ADMINISTRATION (INCLUDES PERCUTANEOUS, INTRADERMAL, SUBCUTANEOUS, OR INTRAMUSCULAR INJECTIONS); 1 VACCINE (SINGLE OR COMBINATION VACCINE/TOXOID) 11/20 [facility] HEALTH AND BEHAVIOR ASSESS (EG, HEALTH-FOC CLIN INTERVIEW, BEHAVIORAL OBSERVATIONS, PSYCHOPHYSICOLOGICAL MON, HEALTH-ORIENTED QUESTIONNAIRES), EACH 15 MIN [id number] WITH THE PATIENT; RE-ASSESS 11/19 [facility] CASE MANAGEMENT, EACH 15 MINUTES 11/17 [facility] PSYCHOTHERAPY, 30 MINUTES WITH PATIENT 11/16 [facility] LARYNGOSCOPY, FLEXIBLE; DIAGNOSTIC 11/16 [facility] Case Management, each 15 minutes 11/24 RENÉE PIÑA F2F: 2,8,11,13 [facility] Coordinated care fee, risk adjusted maintenance, Level 4 11/24 RENÉE PIÑA [facility] Immunization Administration By Injection, One Vaccine Immunization Administration By Injection, One Vaccine 73033 11/20 ARIS WAITE [facility] Influenza Split Virus Vaccine IM With Preservative Quadrivalent 0.50mL Dosage 11/20 ARIS WAITE [place] Influenza, injectable, quadrivalent; Series #: 1; .5 mL; IM; Right Arm; Mfg: doubleTwist; Lot: [id number]; VIS given (Nida: 09/18/14). [facility] Case Management, each 15 minutes 11/17 RENÉE PIÑA F2F: 1,5,8,9,13,17 [facility] Coordinated care fee, risk adjusted maintenance, Level 3 11/17 RENÉE PIÑA [facility] Clinical Social Work Individual Outpatient Counseling 30 Minutes 11/16 GARRY GUZMÁN [facility] Laryngoscopy Diagnostic Flexible Laryngoscopy Diagnostic Flexible 88815 11/16 KERMIT ROBERTS [facility] Fine Needle Aspiration Of Deep Ti ue Under Radiologic Guid Fine Needle Aspiration Of Deep Tissue Under Radiologic Guid 93608 11/10 MICHELLE VANEGAS [facility] Laryngoscopy Diagnostic Flexible Laryngoscopy Diagnostic Flexible 56027 11/10 MICHELLE VANEGAS [facility] Typhoid Vaccine Vi Capsular Polysaccharide, For Intramus Use Typhoid Vaccine Vi Capsular Polysaccharide, For Intramus Use 86739 03/20 KAYY KELLEY Anthrax Vaccine For Subcutaneous Or Intramuscular Use Anthrax Vaccine For Subcutaneous Or Intramuscular Use 46899 03/20 KAYY KELLEY Vaccines Viral Polio, Inactivated Vaccines Viral Polio, Inactivated 24378 03/20 KAYY KELLEY Pneumococcal Polysaccharide Vaccine 23 Valent Intramuscular Pneumococcal Polysaccharide Vaccine 23 Valent Intramuscular 14350 03/20 KAYY KELLEY Screening Test Of Visual Acuity, Quantitative, Bilateral Screening Test Of Visual Acuity, Quantitative, Bilateral 31913 03/20 KAYY KELLEY [facility] Venipuncture Venipuncture 88549 03/20 KAYY KELLEY Left antecubital HIV & MMR Titer blood draw [facility] Immunization Administration By Injection, One Vaccine Immunization Administration By Injection, One Vaccine 97537 03/20 KAYY KELLEY [facility] Immunization Administration By Injection, Each Additional Vaccine Immunization Administration By Injection, Each Additional Vaccine 74176 03/20 KAYY KELLEY [facility] Audiometry Group Testing Audiometry Group Testing 31597 03/20 WERNER RENTERIA [facility] Spectacles Services Fitting Monofocal Except For Aphakia Spectacles Services Fitting Monofocal Except For Aphakia 93240 03/19 NARESH OWENS THE PROCEDURES NEEDED TO ORDER GLASSES, TO INCLUDE ANATOMICAL MEASUREMENTS AND FRAME FITTING, WAS DONE ON THE DATE OF THE APPOINTMENT. DUE TO STAFFING ISSUES, THE ACTUAL GLASSES ORDER WAS SUBMITTED EITHER THE SAME DAY OR THE FOLLOWING WORK DAY. SEE SRTS FOR DETAILS. [facility] [employer] Services Fitting Bifocal Except For Aphakia [employer] Fitting Bifocal Except For Aphakia 13508 06/05 NOHEMY ROCHA Measurements taken of pupil distance and frame sizes. [facility] Determination Of Refractive State Determination Of Refractive State 09998 06/05 NOHEMY ROCHA [facility] Ophthalmological New Patient Start Comprehensive Care Ophthalmological New Patient Start Comprehensive Care 92127 06/05 NOHEMY ROCHA [facility] Audiometry Group Testing Audiometry Group Testing 41230 06/01 LAUREANO CERVANTES [facility] Ear Protector Attenuation Measurements Ear Protector Attenuation Measurements 05227 12/19 ROSANNA COLE [facility] Audiometry Group Testing Audiometry Group Testing 30629 12/19 ROSANNA COLE [facility] Patient education, not otherwise cla ified, non-physician provider, group, per se ion 12/19 ROSANNA COLE [facility] Coordinated care fee, maintenance rate 10/12 MELISSA ESPARZA Case Management, each 15 minutes 10/12 MELISSA ESPARZA [facility] Case Management, each 15 minutes 10/11 MERLE GALLARDO AT # 3,9,11,13,16 F2F [facility] Coordinated care fee, risk adjusted maintenance, Level 5 10/11 MERLE GALLARDO [facility] Case Management, each 15 minutes 10/03 MERLE GALLARDO AT # 3,7,9,11,13,[address] Coordinated care fee, risk adjusted maintenance, Level 3 10/03 MERLE GALLARDO Case Management, each 15 minutes 09/27 MERLE GALLARDO AT # 3,8,9,11,13,16. [address] Coordinated care fee, risk adjusted maintenance, Level 5 09/27 MERLE GALLARDO Physical Therapy: ___ Se ion Segments, 15 Minutes Each Physical Therapy: ___ Session Segments, 15 Minutes Each 31220 09/26 JUN WHITLEY [facility] Physical Therapy Service Re-Evaluation Physical Therapy Service Re-Evaluation 90717 09/26 JUN WHITLEY [facility] Clinical Social Work Individual Outpatient Counseling 45 Minutes 09/23 [facility] Case Management, each 15 minutes 09/19 MERLE GALLARDO AT # 3, 5.9.11.13. [address] Coordinated care fee, risk adjusted maintenance, Level 4 09/19 MERLE GALLARDO [facility] Clinical Social Work Individual Outpatient Counseling 45 Minutes 09/16 [facility] Physical Therapy: ___ Se ion Segments, 15 Minutes Each Physical Therapy: ___ Session Segments, 15 Minutes Each 28464 09/14 JUN WHITLEY [facility] Physical Therapy Service Evaluation Physical Therapy Service Evaluation 63080 09/14 JUN WHITLEY Case Management, each 15 minutes 09/12 MERLE GALLARDO AT # 3,9,11,13,16. [address] Coordinated care fee, risk adjusted maintenance, Level 3 09/12 MERLE GALLARDO Case Management, each 15 minutes 09/05 MERLE GALLARDO AT = 3,9,11,13,16. [address] Coordinated care fee, risk adjusted maintenance, Level 4 09/05 MERLE GALLARDO Laryngoscopy Diagnostic Laryngoscopy Diagnostic 65179 09/05 LAINEY JAY [facility] Case Management, each 15 minutes 08/30 MERLE GALLARDO AT = 3, 5, 6, 10, 11, 13, 16; Face to Face [facility] Coordinated care fee, risk adjusted maintenance, Level 3 08/30 MERLE GALLARDO Case Management, each 15 minutes 08/26 [place] JULIANA, MARION M TCON and FACE to FACE T=18 G=3 AT=2, 10, 11, 16, 18 DoD Coordinated care fee, risk adjusted maintenance, Level 3 08/26 [place] JULIANA, MARION M [facility] Clinical Social Work Individual Outpatient Counseling 45 Minutes 08/24 INFANTI, CELESTINO K [facility] Clinical Social Work Individual Outpatient Counseling 45 Minutes 08/19 INFANTI, CELESTINO K Do[facility] Case Management, each 15 minutes 08/19 [place] JULIANA, MARION M TCON T=19 G=2 AT=2. 6, 9, 11, 16, 18 [facility] Coordinated care fee, risk adjusted maintenance 08/19 [place] JULIANA, MARION M [facility] Clinical Social Work Individual Outpatient Counseling 45 Minutes 08/11 INFANTCELESTINO Mckinney K [facility] Case Management, each 15 minutes 08/08 MERLE GALLARDO AT # 3, 9, 11, 13; [address] Coordinated care fee, risk adjusted maintenance, Level 5 08/08 MERLE GALLARDO Laryngoscopy Diagnostic Flexible Laryngoscopy Diagnostic Flexible 89013 08/01 GARTH WEBSTER [facility] Case Management, each 15 minutes 08/01 MERLE GALLARDO Acuity Tracker # 3,9,11,13,16; [address] Coordinated care fee, risk adjusted maintenance, Level 4 08/01 MERLE GALLARDO Case Management, each 15 minutes 07/26 MERLE GALLARDO AT= 5,7,9,13; [address] Coordinated care fee, risk adjusted maintenance, Level 3 07/26 MERLE GALLARDO DoD Case Management, each 15 minutes 07/25 MERLE GALLARDO AT = 9, 13, [address] Coordinated care fee, maintenance rate 07/25 MERLE GALLARDO Case Management, each 15 minutes 07/18 MERLE GALLARDO AT = 11 TC DoD Coordinated care fee, risk adjusted maintenance 07/18 MERLE GALLARDO Clinical Social Work Individual Outpatient Counseling 45 Minutes 07/18 INFANTCELESTINO Mckinney Do[facility] Case Management, each 15 minutes 07/13 MERLE GALLARDO AT = 3,7,9,11,13,[address] Coordinated care fee, risk adjusted maintenance, Level 4 07/13 MERLE GALLARDO [facility] Case Management, each 15 minutes 07/08 DARY MANJARREZ AT 2, 13, [address] Coordinated care fee, risk adjusted maintenance 07/08 DARY MANJARREZ [facility] Clinical Social Work Individual Outpatient Counseling 45 Minutes 06/29 CELESTINO PAUL [facility] Case Management, each 15 minutes 06/27 MERLE GALLARDO AT = 3,7,9,11,13,[address] Coordinated care fee, risk adjusted maintenance, Level 3 06/27 MERLE GALLARDO [facility] Clinical Social Work Individual Outpatient Counseling 45 Minutes 06/22 CELESTINO PAUL [facility] Case Management, each 15 minutes 06/20 MERLE GALLARDO AT= 3,5,7,9,11,13,[address] Coordinated care fee, risk adjusted maintenance, Level 4 06/20 MERLE GALLARDO [facility] Clinical Social Work Individual Outpatient Counseling 45 Minutes 06/15 CELESTINO PAUL [facility] Case Management, each 15 minutes 06/14 MERLE GALLARDO AT = 3,7, 9, 11, 13, [address] Coordinated care fee, risk adjusted maintenance, Level 3 06/14 MERLE GALLARDO [facility] Medical Nutrition Therapy Re-a e ment And Intervention Each 15 Minutes Medical Nutrition Therapy Re-assessment And Intervention Each 15 Minutes [id number] 06/10 KAVIN HUDSON [facility] Clinical Social Work Individual Outpatient Counseling 45 Minutes 06/08 CELESTINO PAUL [facility] Coordinated care fee, risk adjusted maintenance, Level 5 06/06 AJ VARELA [facility] Case Management, each 15 minutes 06/06 AJ VARELA Per Acuity Calculator: 3, 6, 9, 13 [facility] Medical Nutrition Therapy Re-a e ment And Intervention Each 15 Minutes Medical Nutrition Therapy Re-assessment And Intervention Each 15 Minutes 41911 06/03 KAVIN HUDSON [facility] Coordinated care fee, risk adjusted maintenance, Level 3 06/01 AJ VARELA Case Management, each 15 minutes 06/01 AJ VARELA Per Acuity Calculator: 3, 13 [facility] Medical Nutrition Therapy Re-a e ment And Intervention Each 15 Minutes Medical Nutrition Therapy Re-assessment And Intervention Each 15 Minutes 24567 05/27 KAVIN HUDSON [facility] Clinical Social Work Individual Outpatient Counseling 45 Minutes 05/24 CELESTINO PAUL [facility] Laryngoscopy Diagnostic Flexible Laryngoscopy Diagnostic Flexible 79600 05/23 ELKE MERRITT [facility] Coordinated care fee, risk adjusted maintenance, Level 3 05/23 AJ VARELA [facility] Case Management, each 15 minutes 05/23 AJ VARELA Per Acuity Calculator: 3, 5,, 13 [facility] Clinical Social Work Individual Outpatient Counseling 45 Minutes 05/20 CELESTINO PAUL [facility] Medical Nutrition Therapy Re-a e ment And Intervention Each 15 Minutes Medical Nutrition Therapy Re-assessment And Intervention Each 15 Minutes [id number] 05/18 KAVIN HUDSON [facility] Clinical Social Work Individual Outpatient Counseling 45 Minutes 05/16 CELESTINO PAUL [facility] Coordinated care fee, maintenance rate 05/16 AJ VARELA Case Management, each 15 minutes 05/16 AJ VARELA Per Acuity Calculator: 3, 13 [facility] Coordinated care fee, risk adjusted maintenance, Level 3 05/10 AJ VARELA Case Management, each 15 minutes 05/10 AJ VARELA Per Acuity Calculator: 8 Kym Case Management, each 15 minutes 05/10 AJ VARELA Per Acuity Calculator: 3, 13 [facility] Coordinated care fee, risk adjusted maintenance 05/04 AJ VARELA Case Management, each 15 minutes 05/04 AJ VARELA Per Acuity Calculatoor: 13, 19 [facility] Ultrasound Thyroid Ultrasound Thyroid 39391 04/27 KAMERON_MAURICE SCRUGGS [facility] Clinical Social Work Individual Outpatient Counseling 45 Minutes 04/26 CELESTINO PAUL [facility] Medical Nutrition Therapy Re-a e ment And Intervention Each 15 Minutes Medical Nutrition Therapy Re-assessment And Intervention Each 15 Minutes 94218 04/26 KAVIN HUDSON [facility] Coordinated care fee, risk adjusted maintenance 04/26 AJ VARELA [facility] Case Management, each 15 minutes 04/26 AJ VARELA Per Acuity Calculator: 3, 5, 9(2). 13 [facility] Clinical Social Work Individual Outpatient Counseling 45 Minutes 04/20 PRIYANKA DAVILA Coordinated care fee, maintenance rate 04/18 AJ VARELA Case Management, each 15 minutes 04/18 AJ VARELA Per Acuity Calculator: 3, 13, 16 [facility] Medical Nutrition Therapy Re-a e ment And Intervention Each 15 Minutes Medical Nutrition Therapy Re-assessment And Intervention Each 15 Minutes 78395 04/13 KAVIN HUDSON Coordinated care fee, risk adjusted maintenance, Level 5 AJ VARELA Case Management, each 15 minutes AJ VARELA Per Acuity Calculator: 3, 5, 13 K[facility] Coordinated care fee, risk adjusted maintenance, Level 4 04/06 AJ VARELA Patient Counseling Medical Management Individual Patient Patient Counseling Medical Management Individual Patient [id number] 04/06 YOU GARCIAS Provided counseling session following the [employer] Aural Rehabilitation curriculum for patients with auditory complaints. Details can be found at: http://[email or web address].or [email or web address]/[email or web address].html#[email or web address] .23 The following topics were discussed: Current test results. Pts. questions were answered and guidance provided for future follow up appointments. Duration: 16 minutes [facility] Evoked Otoacoustic Curtis ions Comprehensive Evoked Otoacoustic Emissions Comprehensive 47574 04/06 YOU GARCIAS [facility] Audiometry Speech Threshold Audiometry Speech Threshold 45992 04/06 YOU GARCIAS [facility] Threshold Audiogram (Pure Tone) Threshold Audiogram (Pure Tone) 87517 04/06 YOU GARCIAS [facility] Tympanometry Tympanometry 00594 04/06 YOU GARCIAS Case Management, each 15 minutes 04/06 AJ VARELA Per Acuity Calculator: 3, 5, 13 [facility] Coordinated care fee, risk adjusted maintenance, Level 3 03/30 AJ VARELA Case Management, each 15 minutes 03/30 AJ VARELA Per Acuity Calculator: 3, 5, 9, 13 K[facility] Case Management, each 15 minutes 03/24 DARY MANJARREZ AT 2, 9x3, 14, 17 F2F [facility] Coordinated care fee, risk adjusted maintenance 03/24 DARY MANJARREZ [facility] Coordinated care fee, maintenance rate 03/15 NICHOLE, AJ Mejía Case Management, each 15 minutes 03/15 NICHOLE, QUINCY Per Acuity Calculator: 9, 13, 19 [facility] Coordinated care fee, risk adjusted maintenance, Level 4 03/10 NICHOLE, AJ Mejía Case Management, each 15 minutes 03/10 NICHOLE, QUINCY Per Acuity Calculator: 13, 18 [facility] Coordinated care fee, risk adjusted maintenance, Level 4 03/09 NICHOLE, AJ Mejía Case Management, each 15 minutes 03/09 NICHOLE, QUINCY [facility] Coordinated care fee, risk adjusted maintenance, Level 4 03/04 NICHOLE, QUINCY DoD Case Management, each 15 minutes 03/04 NICHOLE, QUINCY Per Acuity Calculator: 13, 18 [facility] Coordinated care fee, risk adjusted maintenance, Level 3 02/22 NICHOLE, QUINCYJANELLE Mejía Case Management, each 15 minutes 02/22 NICHOLE, QUINCY Per Acuity Calculator: 9, 14, 18 [facility] Coordinated care fee, risk adjusted maintenance 02/15 NICHOLE, AJ Mejía Case Management, each 15 minutes 02/15 NICHOLE, QUINCY Per Acuity Calculator: 3, 5, 10, 14 [facility] Intensity Modulated Radiation Treatment Delivery Complex Intensity Modulated Radiation Treatment Delivery Complex 12730 02/10 ARELY WASHINGTON [facility] Radiation With Complete Course of Therapy Radiation With Complete Course of Therapy 75761 02/10 ARELY WASHINGTON [facility] Radiation Stereosc X-Ray Guid For Localiz Target Volume Radiation Stereosc X-Ray Guid For Localiz Target Volume 34590 02/10 ARELY WASHINGTON [facility] IV Infusion For Hydration 31 Minutes To 1 Hour IV Infusion For Hydration 31 Minutes To 1 Hour 09901 02/09 CASSANDRA KIDD [facility] Patient Counseling Medical Management Individual Patient Patient Counseling Medical Management Individual Patient [id number] 02/09 YOU GARCIAS Provided counseling session following the [employer] Aural Rehabilitation curriculum for patients with auditory complaints. Details can be found at: [email or web address] [email or web address]/[email or web address]#[email or web address] .23 The following topics were discussed: Current test results and hearing protection. Pts. questions were answered and guidance provided for future follow up appointments. Duration: 16 minutes [facility] Audiometry Speech Threshold With Discrimination Audiometry Speech Threshold With Discrimination 68098 02/09 YOU GARCIAS [facility] Threshold Audiogram (Pure Tone) Threshold Audiogram (Pure Tone) 27221 02/09 YOU GARCIAS [facility] Evoked Otoacoustic Curtis ions Comprehensive Evoked Otoacoustic Emissions Comprehensive 86806 02/09 YOU GARCIAS [facility] Tympanometry With Reflex Threshold Measurements Tympanometry With Reflex Threshold Measurements 76623 02/09 YOU GARCIAS [facility] Radiation Delivery High Resolution Convergent Beam 3 Or More Radiation Delivery High Resolution Convergent Beam 3 Or More 25276 02/09 PEDRO LUIS HOANG Radiation Stereosc X-Ray Guid For Localiz Target Volume Radiation Stereosc X-Ray Guid For Localiz Target Volume 95413 02/09 PEDRO LUIS HOANG IV Infusion For Hydration 31 Minutes To 1 Hour IV Infusion For Hydration 31 Minutes To 1 Hour 19920 02/08 CASSANDRA KIDD [facility] Coordinated care fee, risk adjusted maintenance, Level 5 02/08 AJ VARELA Case Management, each 15 minutes 02/08 AJ VARELA Per Acuity Calculator: 3, 14, 16 [facility] Intensity Modulated Radiation Treatment Delivery Complex Intensity Modulated Radiation Treatment Delivery Complex 59295 02/08 ARELY WASHINGTON Radiation Weekly Therapy Management Intermediate Radiation Weekly Therapy Management Intermediate 94749 02/08 ARELY WASHINGTON Radiation Stereosc X-Ray Guid For Localiz Target Volume Radiation Stereosc X-Ray Guid For Localiz Target Volume 32687 02/08 ARELY WASHINGTON Radiation Therapy Calculation Basic Dosimetry Radiation Therapy Calculation Basic Dosimetry 83923 02/04 TONY WADE Radiation Teletherapy Isodose Plan Complex Radiation Teletherapy Isodose Plan Complex 33958 02/04 TONY WADE 3-D Rendering Requiring Image Postproce ing 3-D Rendering Requiring Image Postprocessing 41391 02/04 TONY WADE [facility] Radiation Delivery High Resolution Convergent Beam 3 Or More Radiation Delivery High Resolution Convergent Beam 3 Or More 50195 02/04 TONY WADE [facility] Radiation Stereosc X-Ray Guid For Localiz Target Volume Radiation Stereosc X-Ray Guid For Localiz Target Volume 97394 02/04 TONY WADE [facility] Radiation Physics Continuing Medical Consult, Quality A ur Radiation Physics Continuing Medical Consult, Quality Assur 15736 02/03 LASHONDA GARZA [facility] Intensity Modulated Radiation Treatment Delivery Complex Intensity Modulated Radiation Treatment Delivery Complex 60153 02/03 LASHONDA GARZA [facility] Radiation Stereosc X-Ray Guid For Localiz Target Volume Radiation Stereosc X-Ray Guid For Localiz Target Volume 17603 02/03 LASHONDA GARZA [facility] Coordinated care fee, risk adjusted maintenance, Level 5 02/02 AJ VARELA [facility] Case Management, each 15 minutes 02/02 AJ VARELA Per Acuity Calculator: 5, 9, 14, 19 [facility] Case Management, each 15 minutes 02/02 AJ VARELA Per Acuity Calculator: 0 [facility] Radiation Delivery High Resolution Convergent Beam 3 Or More Radiation Delivery High Resolution Convergent Beam 3 Or More 49534 02/02 PEDRO LUIS HOANG [facility] Radiation Stereosc X-Ray Guid For Localiz Target Volume Radiation Stereosc X-Ray Guid For Localiz Target Volume 24013 02/02 PEDRO LUIS HOANG [facility] Clinical Social Work Individual Outpatient Counseling 45 Minutes 02/01 CELESTINO PAUL [facility] Intensity Modulated Radiation Treatment Delivery Complex Intensity Modulated Radiation Treatment Delivery Complex 88424 02/01 BRIAN FLEMING [facility] Radiation Weekly Therapy Management Intermediate Radiation Weekly Therapy Management Intermediate 01167 02/01 BRIAN FLEMING [facility] Radiation Stereosc X-Ray Guid For Localiz Target Volume Radiation Stereosc X-Ray Guid For Localiz Target Volume 88194 02/01 BRIAN FLEMING [facility] Gastric Intubation And Lavage Gastric Intubation And Lavage 45148 01/30 THAIS DODD [facility] IV Infusion For Hydration 31 Minutes To 1 Hour IV Infusion For Hydration 31 Minutes To 1 Hour 81978 01/29 BRIGITTE RAMIREZ [facility] Radiation Delivery High Resolution Convergent Beam 3 Or More Radiation Delivery High Resolution Convergent Beam 3 Or More 25910 01/29 PEDRO LUIS HOANG [facility] Radiation Stereosc X-Ray Guid For Localiz Target Volume Radiation Stereosc X-Ray Guid For Localiz Target Volume 26201 01/29 PEDRO LUIS HOANG [facility] IV Infusion For Hydration 31 Minutes To 1 Hour IV Infusion For Hydration 31 Minutes To 1 Hour 47588 01/28 BRIGITTE RAMIREZ 1 liter N.s. [facility] Intensity Modulated Radiation Treatment Delivery Complex Intensity Modulated Radiation Treatment Delivery Complex 13475 01/28 BRIAN FLEMING [facility] Radiation Stereosc X-Ray Guid For Localiz Target Volume Radiation Stereosc X-Ray Guid For Localiz Target Volume 18781 01/28 BRIAN FLEMING [facility] IV Infusion For Hydration 31 Minutes To 1 Hour IV Infusion For Hydration 31 Minutes To 1 Hour 14586 01/27 BRIGITTE RAMIREZ 1 liter N.S [facility] Radiation Physics Continuing Medical Consult, Quality A ur Radiation Physics Continuing Medical Consult, Quality Assur 41930 01/27 ARELY WASHINGTON [facility] Radiation Delivery High Resolution Convergent Beam 3 Or More Radiation Delivery High Resolution Convergent Beam 3 Or More 40500 01/27 ARELY WASHINGTON [facility] Radiation Stereosc X-Ray Guid For Localiz Target Volume Radiation Stereosc X-Ray Guid For Localiz Target Volume 40024 01/27 ARELY WASHINGTON [facility] IV Infusion For Hydration 31 Minutes To 1 Hour IV Infusion For Hydration 31 Minutes To 1 Hour 23009 01/26 BRIGITTE RAMIREZ [facility] Collection Of Blood Specimen Via Central/Peripheral Venous Catheter Collection Of Blood Specimen Via Central/Periphera l Venous Catheter 59107 01/26 BRIGITTE RAMIREZ labs and drsg change [facility] Intensity Modulated Radiation Treatment Delivery Complex Intensity Modulated Radiation Treatment Delivery Complex 39874 01/26 BRIAN FLEMING [facility] Radiation Therapy Simulation-Aided Field Setting Simple Radiation Therapy Simulation-Aided Field Setting Simple 85999 01/26 BRIAN FLEMING [facility] Radiation Stereosc X-Ray Guid For Localiz Target Volume Radiation Stereosc X-Ray Guid For Localiz Target Volume 37919 01/26 BRIAN FLEMING IV Infusion For Hydration 31 Minutes To 1 Hour IV Infusion For Hydration 31 Minutes To 1 Hour 34707 01/25 BRIGITTE RAMIREZ [facility] Coordinated care fee, risk adjusted maintenance, Level 5 01/25 AJ VARELA [facility] Case Management, each 15 minutes 01/25 AJ VARELA Per Acuity Calculator: 3, 5, 9 (2),, 11, 14 [facility] Radiation Delivery High Resolution Convergent Beam 3 Or More Radiation Delivery High Resolution Convergent Beam 3 Or More 27040 01/25 PEDRO LUIS HOANG Radiation Weekly Therapy Management Intermediate Radiation Weekly Therapy Management Intermediate 87203 01/25 PEDRO LUIS HOANG Radiation Stereosc X-Ray Guid For Localiz Target Volume Radiation Stereosc X-Ray Guid For Localiz Target Volume 42727 01/25 PEDRO LUIS HOANG IV Infusion For Hydration 31 Minutes To 1 Hour IV Infusion For Hydration 31 Minutes To 1 Hour 64666 01/22 BRIGITTE RAMIREZ 1 liter N.S. [facility] Intensity Modulated Radiation Treatment Delivery Complex Intensity Modulated Radiation Treatment Delivery Complex 04511 01/22 BRIAN FLEMING Radiation Stereosc X-Ray Guid For Localiz Target Volume Radiation Stereosc X-Ray Guid For Localiz Target Volume 82121 01/22 BRIAN FLEMING Medical Nutrition Therapy Initial A e ment And Intervention Each 15 Minutes Medical Nutrition Therapy Initial Assessment And Intervention Each 15 Minutes 15692 01/21 KAVIN HUDSON [facility] Radiation Physics Continuing Medical Consult, Quality A ur Radiation Physics Continuing Medical Consult, Quality Assur 26130 01/21 LASHONDA GARZA [facility] Collection Of Blood Specimen Via Central/Peripheral Venous Catheter Collection Of Blood Specimen Via Central/Periphera l Venous Catheter 85765 01/21 BRIGITTE RAMIREZ [facility] IV Infusion For Hydration 31 Minutes To 1 Hour IV Infusion For Hydration 31 Minutes To 1 Hour 74323 01/21 BRIGITTE RAMIREZ 1 liter N.S. [facility] Radiation Treatment Devices, Design and Construction Complex Radiation Treatment Devices, Design and Construction Complex 68570 01/21 LASHONDA GARZA Radiation Therapy Simulation-Aided Field Setting Complex Radiation Therapy Simulation-Aided Field Setting Complex 75587 01/21 LASHONDA GARZA Radiation Therapy Treatment Planning Complex Radiation Therapy Treatment Planning Complex 92379 01/21 LASHONDA GARZA [facility] [place] Guidance For Placement Of Radiation Therapy Joshi CT Guidance For Placement Of Radiation Therapy Joshi 65551 01/21 LASHONDA GARZA [facility] Radiation Delivery High Resolution Convergent Beam 3 Or More Radiation Delivery High Resolution Convergent Beam 3 Or More 86985 01/21 LASHONDA GARZA [facility] Radiation Stereosc X-Ray Guid For Localiz Target Volume Radiation Stereosc X-Ray Guid For Localiz Target Volume 87115 01/21 LASHONDA GARZA [facility] Coordinated care fee, risk adjusted maintenance, Level 4 01/20 AJ VARELA Case Management, each 15 minutes 01/20 AJ VARELA Per Acuity Calculator: 3, 5, 9, 14 [facility] IV Infusion For Hydration 31 Minutes To 1 Hour IV Infusion For Hydration 31 Minutes To 1 Hour 86713 01/20 BRIGITTE RAMIREZ [facility] Intensity Modulated Radiation Treatment Delivery Complex Intensity Modulated Radiation Treatment Delivery Complex 96332 01/20 BRIAN FLEMING Radiation Stereosc X-Ray Guid For Localiz Target Volume Radiation Stereosc X-Ray Guid For Localiz Target Volume 52681 01/20 BRIAN FLEMING Patient Counseling Medical Management Individual Patient Patient Counseling Medical Management Individual Patient 32797 01/19 HAYDEE VARELA Provided counseling session following the [employer] Aural Rehabilitation curriculum for patients with auditory complaints. Details can be found at: <[email or web address] 4.23 The following topics were discussed: current test results and preventive hearing loss measures. Pt. advised on monitoring audiometry, questions were answered and guidance provided for future follow/up appointments. [facility] Tympanometry With Reflex Threshold Measurements Tympanometry With Reflex Threshold Measurements 34737 01/19 HAYDEE VARELA Evoked Otoacoustic Curtis ions Comprehensive Evoked Otoacoustic Emissions Comprehensive 05325 01/19 HAYDEE VARELA Comprehensive Audiometry Comprehensive Audiometry 76462 01/19 HAYDEE VARELA Radiation Delivery High Resolution Convergent Beam 3 Or More Radiation Delivery High Resolution Convergent Beam 3 Or More 86235 01/19 PEDRO LUIS HOANG [facility] Radiation Stereosc X-Ray Guid For Localiz Target Volume Radiation Stereosc X-Ray Guid For Localiz Target Volume 89757 01/19 PEDRO LUIS HOANG [facility] IV Infusion For Hydration Each Additional Hour IV Infusion For Hydration Each Additional Hour 35148 01/18 CASSANDRA KIDD [facility] IV Infusion For Hydration 31 Minutes To 1 Hour IV Infusion For Hydration 31 Minutes To 1 Hour 87473 01/18 CASSANDRA KIDD [facility] Radiation Delivery High Resolution Convergent Beam 3 Or More Radiation Delivery High Resolution Convergent Beam 3 Or More 02910 01/18 BRIAN FLEMING [facility] Radiation Weekly Therapy Management Intermediate Radiation Weekly Therapy Management Intermediate 16372 01/18 BRIAN FLEMING [facility] Radiation Stereosc X-Ray Guid For Localiz Target Volume Radiation Stereosc X-Ray Guid For Localiz Target Volume 60594 01/18 BRIAN FLEMING [facility] Coordinated care fee, risk adjusted maintenance 01/15 AJ VARELA [facility] Case Management, each 15 minutes 01/15 AJ VARELA [facility] Case Management, each 15 minutes 05/22 ANDANTONIO LOPEZ targeted assessment x 6 units coordination of a service x 4 follow up single service x 2 units [facility] Coordinated care fee, risk adjusted maintenance, Level 3 05/18 ANDANTONIO LOPEZ [facility] Case Management, each 15 minutes 05/18 ANDANTONIO LOPEZ targeted assessment x 6 units follow up single service x 2 DoD Coordinated care fee, risk adjusted maintenance, Level 3 05/11 ANDANTONIO LOPEZ [facility] Case Management, each 15 minutes 05/11 ANDANTONIO LOPEZ targeted assessment x 6 units coordintation of a service x 4 follow up single service x 2 units [facility] Case Management, each 15 minutes 05/03 MELISSA ESPARZA [facility] Coordinated care fee, maintenance rate 05/03 MELISSA ESPARZA [facility] Coordinated care fee, risk adjusted maintenance, Level 3 04/26 ANDANTONIO LOPEZ [facility] Case Management, each 15 minutes 04/26 ANDANTONIO LOPEZ targeted assessment x 6 units coordination of a service x 4 units follow up single service x 2 units [facility] Coordinated care fee, risk adjusted maintenance, Level 3 04/19 ANDANTONIO LOPEZ [facility] Case Management, each 15 minutes 04/19 ANDANTONIO LOPEZ targeted assessment x 6 units follow up single service x 2 coordination of a service x 4 units DoD Clinical Social Work Individual Outpatient Counseling 30 Minutes Clinical Social Work Individual Outpatient Counseling 30 Minutes 65229 04/14 STEFAN QUINONES DoD Coordinated care fee, risk adjusted maintenance, Level 3 04/11 ANDANTONIO LOPEZ Case Management, each 15 minutes 04/11 ANDANTONIO LOPEZ targeted assessment x 6 units interdisciplinary group meeting x 1 units follow up single service x 2 units multidisciplinary conferences x 4 units DoD Physical Therapy Service Re-Evaluation Physical Therapy Service Re-Evaluation 83149 04/11 REGGIE EPSTEIN [facility] Spectacles Services Fitting Bifocal Except For Aphakia Spectacles Services Fitting Bifocal Except For Aphakia 92520 04/11 RACHELLE CARUSO [facility] Determination Of Refractive State Determination Of Refractive State 02914 04/11 RACHELLE CARUSO [facility] Ophthalmological New Patient Start Comprehensive Care Ophthalmological New Patient Start Comprehensive Care 19697 04/11 RACHELLE CARUSO Medication Management By Pharmacist Initial 15 Minutes Established Patient Medication Management By Pharmacist Initial 15 Minutes Established Patient 79900 04/10 LONI MIGUEL [facility] Coordinated care fee, risk adjusted maintenance, Level 3 04/07 ANDANTONIO LOPEZ Case Management, each 15 minutes 04/07 ANDANTONIO LOPEZ targeted assessment x 6 units interdisciplinary group x 1 follow up single service x 2 coordination of a service x 4 DoD Coordinated care fee, risk adjusted maintenance, Level 3 03/31 ANDANTONIO LOPEZ Case Management, each 15 minutes 03/31 ANDANTONIO LOPEZ targeted assessment x 6 units interdisciplinary group meeting x 1 units voice mail left x 2 follow up single service x2 DoD Coordinated care fee, risk adjusted maintenance, Level 3 03/21 ANDANTONIO LOPEZ Case Management, each 15 minutes 03/21 ANDANTONIO LOPEZ targeted assessment x 6 units coordination of a service x 4 untis care plan additional x 6 DoD Coordinated care fee, risk adjusted maintenance, Level 3 03/16 ANDANTONIO LOPEZ Case Management, each 15 minutes 03/16 ANDANTONIO LOPEZ targeted assessment x 6 units interdisciplinary group x 1 care plan update x 6 unit follow up single service x 2 unit [facility] Non-Physician Phone Call To Patient/Provider Brief (5-10min) Non-Physician Phone Call To Patient/Provider Brief (5-10min) 38670 03/13 STEFAN QUINONES [facility] Coordinated care fee, risk adjusted maintenance, Level 3 03/06 ANDJOHN RASHMIGRADY [facility] Case Management, each 15 minutes 03/06 ANDJOHN RASHMIGRADY [facility] Coordinated care fee, risk adjusted maintenance, Level 3 03/03 ANDJOHN RASHMIGRADY [facility] Case Management, each 15 minutes 03/03 ANDANTONIO LOPEZ targeted assessment x 6 units modified assessment x 6 units coordination of a service x 4 units follow up single service x 2 [facility] Coordinated care fee, risk adjusted maintenance, Level 3 02/24 ANDJOHN RASHMIGRADY [facility] Case Management, each 15 minutes 02/24 ANDANTONIO LOPEZ targeted assessment x 6 units modified assessment x 6 units coordination of a service x 4 units follow up single service x 2 units [facility] Case Management, each 15 minutes 02/17 CEDRICK WATTS Tar assess 6 CM to CM 2 Indiv emotional support 4 [facility] Coordinated care fee, risk adjusted maintenance 02/17 CEDRICK WATTS Case Management, each 15 minutes 02/09 CEDRICK WATTS Tar assess 6 Indiv emotional support 4 [facility] Coordinated care fee, risk adjusted maintenance, Level 4 02/09 CEDRICK WATTS Case Management, each 15 minutes 02/01 CEDRICK WATTS Tar assess 6 Indiv emotional support [facility] Coordinated care fee, risk adjusted maintenance, Level 3 02/01 CEDRICK WATTS Case Management, each 15 minutes 01/18 CEDRICK WATTS Tar assess 6 F/u single service 2 Indiv emotional support 4 [facility] Coordinated care fee, risk adjusted maintenance 01/18 CEDRICK WATTS Physical Medicine - Group Physical Therapy Se ion Physical Medicine - Group Physical Therapy Session 66227 01/16 MAXIME PARR [facility] Consumer Science Teacher Ed Community Reintegration Training - Per 15 Min Consumer Science Teacher Ed Community Reintegration Training - Per 15 Min 75847 01/13 MARTIR MUELLER [facility] Occupational Therapy Re-Evaluation Occupational Therapy Re-Evaluation 40384 01/13 MARTIR MUELLER [facility] Physical Therapy Service Re-Evaluation Physical Therapy Service Re-Evaluation 29851 01/11 REGGIE EPSTEIN [facility] Medication Management By Pharmacist Initial 15 Minutes Established Patient Medication Management By Pharmacist Initial 15 Minutes Established Patient 72966 01/10 LONI MIGUEL DoD Case Management, each 15 minutes 01/09 CEDRICK WATTS Tar assess 6 Indiv emotional support 4 F/u single service 2 [facility] Coordinated care fee, risk adjusted maintenance 01/09 CEDRICK WATTS [facility] Psychiatric Diagnostic Evaluation Review of Records and Reports Psychiatric Diagnostic Evaluation Review of Records and Reports 27149 01/09 MELÉNDEZLAITH [facility] Coordinated care fee, risk adjusted maintenance, Level 3 01/02 ANDANTONIO LOPEZ DoD Case Management, each 15 minutes 01/02 ANDANTONIO LOPEZ targeted assessment x 6 units follow upsingle service x 2 units coordination of a service x 4 units [facility] Physical Medicine - Group Physical Therapy Se ion Physical Medicine - Group Physical Therapy Session 78380 12/29 SHANTEL TAYLOR [facility] Coordinated care fee, risk adjusted maintenance, Level 3 12/27 ANDANTONIO LOPEZ DoD Case Management, each 15 minutes 12/27 ANDANTONIO LOPEZ targeted assessment x 6 units follow up single service x 2 units coordination of a service x 2 units [facility] Physical Medicine - Group Physical Therapy Se ion Physical Medicine - Group Physical Therapy Session 74076 12/26 MAXIME PARR [facility] Evoked Otoacoustic Curtis ions Comprehensive Evoked Otoacoustic Emissions Comprehensive 46496 12/23 JENN OSEI [facility] Acoustic Reflex Testing Acoustic Reflex Testing 38181 12/23 JENN OSEI [facility] Tympanometry Tympanometry 83701 12/23 JENN OSEI [facility] Comprehensive Audiometry Comprehensive Audiometry 44774 12/23 JENN OSEI [facility] Coordinated care fee, risk adjusted maintenance, Level 3 12/21 ANDANTONIO LOPEZ DoD Case Management, each 15 minutes 12/21 ANDANTNOIO LOPEZ targeted assessment x 6 units follow up single service x 2 units coordination of a service x 4 units [facility] Psychiatric Therapy Environmental Intervention Psychiatric Therapy Environmental Intervention 59563 12/15 SAUNDRA PEREZ [facility] Coordinated care fee, risk adjusted maintenance, Level 3 12/13 ANDANTONIO LOPEZ DoD Case Management, each 15 minutes 12/13 ANDERES, LENECE targeted assessment x 6 units follow up single service x 2 units coordination of a service x 4 units DoD Physical Medicine - Group Physical Therapy Se ion Physical Medicine - Group Physical Therapy Session 58586 12/12 MAXIME PARR [facility] Medication Management By Pharmacist Initial 15 Minutes Established Patient Medication Management By Pharmacist Initial 15 Minutes Established Patient 44009 12/12 LONI MIGUEL DoD Psychotherapy Individual Approximately 60 Minutes 12/08 THANH HEIN DoD Coordinated care fee, risk adjusted maintenance, Level 3 12/07 ANDERES, LENECE DoD Case Management, each 15 minutes 12/07 ANDERES LENGRADY targeted assessment x 6 units coordination for a service x 4 units follow up single service DoD Physical Medicine - Group Physical Therapy Se ion Physical Medicine - Group Physical Therapy Session 44368 12/05 MAXIME PARR DoD Coordinated care fee, risk adjusted maintenance, Level 3 12/01 ANDERES, LENECE DoD Case Management, each 15 minutes 12/01 ANDANTONIO LOPEZ targeted assessment x 6 units coordination of a servic ex 4 units follow up single service x 2 units DoD Coordinated care fee, risk adjusted maintenance, Level 3 11/23 ANDERES, LENECE DoD Case Management, each 15 minutes 11/23 ANDANTNOIO LOPEZ targeted assessment x 6 units follow up single service x 2 coordintaion of a sevie s 4 units WT targeted assessment x 2 units DoD Coordinated care fee, risk adjusted maintenance, Level 3 11/15 ANDERES, LENECE DoD Case Management, each 15 minutes 11/15 ANDERESANTONIO targeted assessment x 6 units follow up single servcie x 2 units coordination of a service x 4 units DoD Coordinated care fee, risk adjusted maintenance, Level 3 11/10 ANDERES, LENECE DoD Case Management, each 15 minutes 11/10 ANDERESANTONIO initial assessment comprehensive x 8 DoD Psychotherapy Individual Approximately 60 Minutes 11/10 THANH HEIN DoD Case Management, each 15 minutes 11/08 MELISSA ESPARZA 2/3/7/8/9//13/14 /16 DoD Coordinated care fee, risk adjusted maintenance, Level 5 11/08 MELISSA ESPARZA [facility] Physical Medicine - Group Physical Therapy Se ion Physical Medicine - Group Physical Therapy Session 82025 11/07 MAXIME PARR [facility] Case Management, each 15 minutes 11/02 MELISSA ESPARZA 2/3/7/8//// // [facility] Coordinated care fee, risk adjusted maintenance, Level 5 11/02 MELISSA ESPARZA [facility] Physical Medicine - Group Physical Therapy Se ion Physical Medicine - Group Physical Therapy Session [id number] 11/01 MARTIR MUELLER [facility] Physical Therapy Service Evaluation Physical Therapy Service Evaluation 36487 10/31 REGGIE EPSTEIN [facility] Case Management, each 15 minutes 10/27 MELISSA ESPARZA 2,3,7,8,11,13,14,1 6 [facility] Coordinated care fee, risk adjusted maintenance, Level 5 10/27 MELISSA ESPARZA [facility] Threshold Audiogram (Pure Tone) Threshold Audiogram (Pure Tone) [id number] 10/25 EVELYN WEAVER [facility] Screening Test Of Visual Acuity, Quantitative, Bilateral Screening Test Of Visual Acuity, Quantitative, Bilateral 27323 10/25 WENATCHEEEVELYN [facility] Venipuncture Venipuncture 35243 10/25 WENATCHEEEVELYN [facility] Case Management, each 15 minutes 10/24 MELISSA ESPARZA 2/3/7////24/02 05/28 [facility] Coordinated care fee, risk adjusted maintenance, Level 4 10/24 MELISSA ESPARZA [facility] Consumer Science Teacher Ed Community Reintegration Training - Per 15 Min Consumer Science Teacher Ed Community Reintegration Training - Per 15 Min 91028 10/24 MARTIR MUELLER [facility] Occupational Therapy Evaluation Occupational Therapy Evaluation 71681 10/24 MARTIR MUELLER [facility] Medication Management By Pharmacist Initial 15 Minutes New Patient Medication Management By Pharmacist Initial 15 Minutes New Patient [id number] 10/19 LONI MIGUEL [facility] Case Management, each 15 minutes 10/19 MELISSA ESPARZA 1,5,6,7,8,9,13,14, 16 [facility] Coordinated care fee, risk adjusted maintenance, Level 4 10/19 MELISSA ESPARZA [facility] Psychiatric Diagnostic Evaluation Initial Psychiatric Diagnostic Evaluation Initial 49169 10/13 MIRELLA MATHEWS [facility] Case Management, each 15 minutes 02/21 JES SHAIKH Targeted assessment Multidisciplinary conferences Individual emotional support Patient activation simple DoD Coordinated care fee, risk adjusted maintenance, Level 3 02/21 JES SHAIKH [facility] Case Management, each 15 minutes 02/18 JES SHAIKH Targeted assessment Multidisciplinary conferences Individual emotional support Patient activation simplex DoD Coordinated care fee, risk adjusted maintenance 02/18 JES SHAIKH [facility] Mental health services, not otherwise specified 02/08 SAUNDRA PEREZ [facility] Case Management, each 15 minutes 02/07 JES SHAIKH Targeted assessment Individual emotional support VMM left DoD Coordinated care fee, risk adjusted maintenance 02/07 JES SHAIKH [facility] Case Management, each 15 minutes 02/03 JES SHAIKH Targeted assessment Individual emotional support DoD Coordinated care fee, risk adjusted maintenance 02/03 JES SHAIKH [facility] Coordinated care fee, risk adjusted maintenance, Level 3 01/23 ANDANTONIO LOPEZ [facility] Case Management, each 15 minutes 01/23 ANDANTONIO LOPEZ targeted assessment x 6 units coordination of a service x4 units follow up single service x2 DoD Mental health services, not otherwise specified 01/18 SAUNDRA PEREZ [facility] Clinical Social Work Individual Outpatient Counseling 30 Minutes Clinical Social Work Individual Outpatient Counseling 30 Minutes [id number] 01/16 MIGEL CASTANEDA [facility] Medication Management By Pharmacist Initial 15 Minutes Established Patient Medication Management By Pharmacist Initial 15 Minutes Established Patient [id number] 01/16 LONI MIGUEL [facility] Case Management, each 15 minutes 01/15 MARGARITA NORRIS [facility] Coordinated care fee, risk adjusted maintenance, Level 3 01/15 ANDERESANTONIO [facility] Case Management, each 15 minutes 01/15 ANDERESANTONIO targeted assessment x 6 units coordination of a service x4 units follow up single service x2 DoD Coordinated care fee, risk adjusted maintenance, Level 3 01/08 ANDERESANTONIO [facility] Case Management, each 15 minutes 01/08 ANDERESANTONIO targeted assessment x 6 units coordination of a service x4 units follow up single service x2 DoD Coordinated care fee, risk adjusted maintenance, Level 3 01/01 ANDERESANTONIO [facility] Case Management, each 15 minutes 01/01 ANDANTONIO LOPEZ targeted assessment x 6 units coordination of a service x4 units follow up single service x2 DoD Coordinated care fee, risk adjusted maintenance, Level 3 12/27 ANDERESANTONIO [facility] Case Management, each 15 minutes 12/27 ANDANTONIO LOPEZ targeted assessment x 6 units coordination of a service x4 units follow up single service x2 DoD Coordinated care fee, risk adjusted maintenance, Level 3 12/18 ANDERESANTONIO [facility] Case Management, each 15 minutes 12/18 ANDANTONIO LOPEZ targeted assessment x 6 units coordination of a service x4 units follow up single service x2 DoD Coordinated care fee, risk adjusted maintenance, Level 3 12/12 ANDERESANTONIO [facility] Case Management, each 15 minutes 12/12 ANDANTONIO LOPEZ targeted assessment x 6 units coordination of a service x4 units follow up single service x2 DoD Case Management, each 15 minutes 12/04 ANDANTONIO LOPEZ targeted assessment x 6 units coordination of a service x4 units follow up single service x2 DoD Coordinated care fee, risk adjusted maintenance, Level 3 [facility], risk adjusted maintenance, Level 3 11/30 ANDERESANTONIO [facility] Case Management, each 15 minutes 11/30 ANDANTONIO LOPEZ targeted assessment x 6 units coordination of a service x 4 units follow up single service x 2 DoD Coordinated care fee, risk adjusted maintenance, Level 3 11/21 ANDERES RASHMIGRADY [facility] Case Management, each 15 minutes 11/21 ANDANTONIO LOPEZ targeted assessment x 6 units coordination of a service x4 units follow up single service x2 DoD Medication Management By Pharmacist Initial 15 Minutes Established Patient Medication Management By Pharmacist Initial 15 Minutes Established Patient [id number] 11/16 NICOLE YODER [facility] Mental health services, not otherwise specified 11/16 MIGEL CASTANEDA [facility] Clinical Social Work Individual Outpatient Counseling 30 Minutes Clinical Social Work Individual Outpatient Counseling 30 Minutes 72470 11/15 MIGEL CASTANEDA [facility] Coordinated care fee, risk adjusted maintenance, Level 3 11/14 ANDANTONIO LOPEZ [facility] Case Management, each 15 minutes 11/14 ANDANTONIO LOPEZ targeted assessment x 6 units coordination of a service x 4 units follow up single service x 2 units DoD Physical Therapy Service Re-Evaluation Physical Therapy Service Re-Evaluation 77094 11/14 REGGIE EPSTEIN [facility] Consumer Science Teacher Ed Community Reintegration Training - Per 15 Min Consumer Science Teacher Ed Community Reintegration Training - Per 15 Min [id number] 11/14 MARTIR MUELLER [facility] Occupational Therapy Re-Evaluation Occupational Therapy Re-Evaluation 58225 11/14 MARTIR MUELLER [facility] Non-Physician Phone Call To Pt/Provider Intermed (11-20 min) Non-Physician Phone Call To Pt/Provider Intermed (11-20 min) [id number] 11/08 MIRELLA MATHEWS [facility] Coordinated care fee, risk adjusted maintenance, Level 3 11/08 ANDANTONIO LOPEZ [facility] Case Management, each 15 minutes 11/08 ANDANTONIO LOPEZ targeted assessment x 6 units follow up single service x 2 coordination of a service x 4 units [facility] Coordinated care fee, risk adjusted maintenance, Level 3 11/02 [facility] each 15 minutes 11/02 [facility] x 6 units follow up single service x 2 units coordination of a service x 4 units [facility] Coordinated care fee, risk adjusted maintenance, Level 3 10/24 ANDERES [facility] Case Management, each 15 minutes 10/24 [facility] targeted assessment x 6 units follow up single service x 2 coordination of a service x 4 units [facility] Coordinated care fee, risk adjusted maintenance, Level 3 10/18 ANDERES [facility] Case Management, each 15 minutes 10/18 ANDERES [facility] Coordinated care fee, risk adjusted maintenance, Level 3 10/11 ANDERES [facility] Case Management, each 15 minutes 10/11 ANDERES [facility] targeted assessment x 6 units coordination of a service x 4 units follow up single service x 2 units [facility] Coordinated care fee, risk adjusted maintenance, Level 3 10/03 ANDERES [facility] Case Management, each 15 minutes 10/03 ANDERES [facility] targeted assessment x 6 units follow up single service x 2 coordinaiton of a service x 4 units [facility] Psychotherapy Individual Approximately 30 Minutes Psychotherapy Individual Approximately 30 Minutes [id number] 09/29 SAUNDRA PEREZ [facility] Coordinated care fee, risk adjusted maintenance, Level 3 09/27 ANDERESANTONIO [facility] Case Management, each 15 minutes 09/27 ANTONIO QUACH targeted assessment x 6 units coordination of a service x 4 units follow up single service x 2 units [facility] Coordinated care fee, risk adjusted maintenance 09/25 LARA MASON [facility] Case Management, each 15 minutes 09/25 LARA MASON AT - 9, 11 DoD Coordinated care fee, maintenance rate 09/19 LARA MASON P [facility] Case Management, each 15 minutes 09/19 LARA MASON AT - 11, 13, 19 [facility] Coordinated care fee, risk adjusted maintenance, Level 3 09/04 ANDANTONIO LOPEZ [facility] Case Management, each 15 minutes 09/04 ANDANTONIO LOPEZ targeted assessment x 6 units coordination of a service x 4 follow up single service x 2 DoD Case Management, each 15 minutes 08/29 ANDANTONIO LOPEZ targeted assessment x 6 units follow up single service x 2 coordination of a service [facility] Coordinated care fee, risk adjusted maintenance, Level 3 08/29 ANDANTONIO LOPEZ [facility] Coordinated care fee, risk adjusted maintenance, Level 3 08/28 ANDANTONIO LOPEZ [facility] Case Management, each 15 minutes 08/28 ANDERESANTONIO [facility] Coordinated care fee, risk adjusted maintenance, Level 3 08/22 ANDANTONIO LOPEZ [facility] Case Management, each 15 minutes 08/22 ANDANTONIO LOPEZ targeted assessment x 6 units follow up single service x 2 units coordination of a service x 4 units DoD Development Of Cognitive Skills By Compensatory Activities Development Of Cognitive Skills By Compensatory Activities 21884 08/09 LAITH BARAKAT 1 Units. 15 Min of Tx and Education [facility] Speech Therapy Speech Therapy 32383 08/09 LAITH BARAKAT [facility] Evaluation Of Swallowing And Oral Function Evaluation Of Swallowing And Oral Function 04928 08/09 LAITH BARAKAT Eval of Speech Sound Production, Language Comprehension & Expre ion Eval of Speech Sound Production, Language Comprehension & Expression 42641 08/09 LAITH BARAKAT Medication Management By Pharmacist Initial 15 Minutes Established Patient Medication Management By Pharmacist Initial 15 Minutes Established Patient [id number] 08/09 LONI MIGUEL Medication Management By Pharmacist Each Additional 15 Minutes Medication Management By Pharmacist Each Additional 15 Minutes 06906 08/09 LONI MIGUEL [facility] Clinical Social Work Individual Outpatient Counseling 30 Minutes Clinical Social Work Individual Outpatient Counseling 30 Minutes 50359 08/08 TONYADAVEMIGEL [facility] Coordinated care fee, risk adjusted maintenance, Level 3 08/07 ANDANTONIO LOPEZ [facility] Case Management, each 15 minutes 08/07 ANDANTONIO LOPEZ targeted assessment x 6 units coordination of a service x 4 follow up single service x 2 DoD Coordinated care fee, risk adjusted maintenance, Level 3 07/31 ANDERESANTONIO [facility] Case Management, each 15 minutes 07/31 ANDANTONIO LOPEZ targeted assessment x 6 units coordination of a service x 4 follow up single service x 2 units DoD Coordinated care fee, risk adjusted maintenance, Level 3 07/25 ANDANTONIO LOPEZ [facility] Case Management, each 15 minutes 07/25 ANDANTONIO LOPEZ targeted assessment x 6 units coordination of a service x 4 follow up single service x 2 DoD Coordinated care fee, risk adjusted maintenance, Level 3 07/13 ANDANTONIO LOPEZ [facility] Case Management, each 15 minutes 07/13 ANDANTONIO LOPEZ targeted assessment x 6 units follow up single service x 2 emotional suipport x 2 coordination of a service x 4 DoD Non-Physician Phone Call To Patient/Provider Brief (5-10min) Non-Physician Phone Call To Patient/Provider Brief (5-10min) 51302 07/07 STEFAN QUINONES [facility] Coordinated care fee, risk adjusted maintenance, Level 3 07/06 ANDANTONIO LOPEZ [facility] Case Management, each 15 minutes 07/06 ANDANTONIO LOPEZ targeted assessment x 6 units Coordination of a service x 4 units Follow up single service x 2 DoD Mental health services, not otherwise specified 06/29 SAUNDRA PEREZ [facility] Coordinated care fee, risk adjusted maintenance, Level 3 06/28 ANDANTONIO LOPEZ [facility] Case Management, each 15 minutes 06/28 ANDANTONIO LOPEZ targeted assessment x 6 units follow up single service x 2 coordination of a service x 4 DoD Coordinated care fee, risk adjusted maintenance, Level 3 06/21 ANDANTONIO LOPEZ [facility] Case Management, each 15 minutes 06/21 ANDANTONIO LOPEZ targeted assessent x 6 follow up single service x 2 units modified assessment x 6 DoD Coordinated care fee, risk adjusted maintenance, Level 3 06/15 ANDERES RASHMIGRADY [facility] Case Management, each 15 minutes 06/15 ANDANTONIO LOPEZ targeted assessment x 6 unit follow up single service x 2 multidiscipline conferences x4 [facility] Mental health services, not otherwise specified 06/08 SAUNDRA PEREZ [facility] Coordinated care fee, risk adjusted maintenance, Level 3 06/08 ANDERESANTONIO [facility] Case Management, each 15 minutes 06/08 ANDERESANTONIO targeted assessment x 6 units follow up single service x 4 multidisciplinary conferences x 4 units [facility] Coordinated care fee, risk adjusted maintenance, Level 3 05/29 ANDERES RASHMIGRADY [facility] Case Management, each 15 minutes 05/29 ANDERESANTONIO targeted assessment x 6 units follow up single service x 4 coordination of a service x 4 units [facility] Coordinated care fee, risk adjusted maintenance, Level 3 05/22 ANDANTONIO LOPEZ [facility] Radiation Delivery High Resolution Convergent Beam 3 Or More Radiation Delivery High Resolution Convergent Beam 3 Or More 83694 01/15 PEDRO LUIS HOANG [facility] Radiation Stereosc X-Ray Guid For Localiz Target Volume Radiation Stereosc X-Ray Guid For Localiz Target Volume 78523 01/15 PEDRO LUIS HOANG [facility] IV Infusion For Hydration Each Additional Hour IV Infusion For Hydration Each Additional Hour 97719 01/14 CASSANDRA KIDD [facility] IV Infusion For Hydration 31 Minutes To 1 Hour IV Infusion For Hydration 31 Minutes To 1 Hour 06932 01/14 CASSANDRA KIDD [facility] Radiation Delivery High Resolution Convergent Beam 3 Or More Radiation Delivery High Resolution Convergent Beam 3 Or More 25976 01/14 BRIAN FLEMING [facility] Radiation Stereosc X-Ray Guid For Localiz Target Volume Radiation Stereosc X-Ray Guid For Localiz Target Volume 89552 01/14 BRIAN FLEMING [facility] Radiation Physics Continuing Medical Consult, Quality A Radiation Physics Continuing Medical Consult, Quality Assur 44918 01/13 ARELY WASHINGTON [facility] Radiation Delivery High Resolution Convergent Beam 3 Or More Radiation Delivery High Resolution Convergent Beam 3 Or More 17328 01/13 ARELY WASHINGTON [facility] Radiation Stereosc X-Ray Guid For Localiz Target Volume Radiation Stereosc X-Ray Guid For Localiz Target Volume 14391 01/13 ARELY WASHINGTON IV Infusion For Hydration Each Additional Hour IV Infusion For Hydration Each Additional Hour 11476 01/12 CASSANDRA KIDD IV Infusion For Hydration 31 Minutes To 1 Hour IV Infusion For Hydration 31 Minutes To 1 Hour 46177 01/12 CASSANDRA KIDD Health And Behav A e mt Each 15 Min Initial A e ment Health And Behav Assessmt Each 15 Min Initial Assessment 35297 01/12 RA LAYTON Intensity Modulated Radiation Treatment Delivery Complex Intensity Modulated Radiation Treatment Delivery Complex 62344 01/12 BRIAN FLEMING Radiation Stereosc X-Ray Guid For Localiz Target Volume Radiation Stereosc X-Ray Guid For Localiz Target Volume 92212 01/12 BRIAN FLEMING Parenteral Fluids IV Infusion Each Additional Hour Parenteral Fluids IV Infusion Each Additional Hour 50896 01/11 PHIL JACKSON IV Infusion Concurr Hydration Additional Sequential Infusion IV Infusion Concurr Hydration Additional Sequential Infusion 34538 01/11 PHIL JACKSON Physician Supervised Injection IV Each Additional Sequential Push New Substance Physician Supervised Injection IV Each Additional Sequential Push New Substance 51985 01/11 PHIL JACKSON Parenteral Fluids IV Infusion Additional Sequential Infusion Parenteral Fluids IV Infusion Additional Sequential Infusion 18611 01/11 PHIL JACKSON Chemotherapy IV - Infusion Up To 1 Hour Chemotherapy IV - Infusion Up To 1 Hour 97478 01/11 PHIL JACKSON Radiation Delivery High Resolution Convergent Beam 3 Or More Radiation Delivery High Resolution Convergent Beam 3 Or More 22407 01/11 PEDRO LUIS HOANG Radiation Stereosc X-Ray Guid For Localiz Target Volume Radiation Stereosc X-Ray Guid For Localiz Target Volume 12525 01/11 PEDRO LUIS HOANG Radiation Delivery High Resolution Convergent Beam 3 Or More Radiation Delivery High Resolution Convergent Beam 3 Or More 21238 01/08 PEDRO LUIS HOANG Radiation Stereosc X-Ray Guid For Localiz Target Volume Radiation Stereosc X-Ray Guid For Localiz Target Volume 85973 01/08 PEDRO LUIS HOANG Radiation Physics Continuing Medical Consult, Quality A ur Radiation Physics Continuing Medical Consult, Quality Assur 77612 01/06 LASHONDA GARZA [facility] Intensity Modulated Radiation Treatment Delivery Complex Intensity Modulated Radiation Treatment Delivery Complex 10403 01/06 LASHONDA GARZA Radiation Stereosc X-Ray Guid For Localiz Target Volume Radiation Stereosc X-Ray Guid For Localiz Target Volume 25097 01/06 LASHONDA GARZA Patient Counseling Medical Management Individual Patient Patient Counseling Medical Management Individual Patient 41216 01/05 DESIREE PATTON Evoked Otoacoustic Curtis ions Comprehensive Evoked Otoacoustic Emissions Comprehensive 75085 01/05 DESIREE PATTON Tympanometry With Reflex Threshold Measurements Tympanometry With Reflex Threshold Measurements 46460 01/05 DESIREE PATTON Comprehensive Audiometry Comprehensive Audiometry 39120 01/05 DESIREE PATTON IV Infusion For Hydration 31 Minutes To 1 Hour IV Infusion For Hydration 31 Minutes To 1 Hour 39568 01/05 BRIGITTE RAMIREZ [facility] Medical Nutrition Therapy Initial A e ment And Intervention Each 15 Minutes Medical Nutrition Therapy Initial Assessment And Intervention Each 15 Minutes 96613 01/05 KIMI MITCHELL [facility] Radiation Delivery High Resolution Convergent Beam 3 Or More Radiation Delivery High Resolution Convergent Beam 3 Or More 93405 01/05 PEDRO LUIS HOANG Radiation Stereosc X-Ray Guid For Localiz Target Volume Radiation Stereosc X-Ray Guid For Localiz Target Volume 61902 01/05 PEDRO LUIS HOAGN Coordinated care fee, risk adjusted maintenance, Level 4 01/04 AJ VARELA Case Management, each 15 minutes 01/04 AJ VARELA Per Acuity Calculator: 3, 14 [facility] Case Management, each 15 minutes 01/04 AJ VARELA Intensity Modulated Radiation Treatment Delivery Complex Intensity Modulated Radiation Treatment Delivery Complex 54089 01/04 SRIDEVI BETHEA Radiation Stereosc X-Ray Guid For Localiz Target Volume Radiation Stereosc X-Ray Guid For Localiz Target Volume 08519 01/04 SRIDEVI BETHEA Radiation Weekly Therapy Management Intermediate Radiation Weekly Therapy Management Intermediate 37317 01/04 SRIDEVI BETHEA Case Management, each 15 minutes 01/01 AJ VARELA Per Acuity Tracker: 1, 5, 9(2), 14 [facility] Intensity Modulated Radiation Treatment Delivery Complex Intensity Modulated Radiation Treatment Delivery Complex 30560 01/01 SRIDEVI BETHEA [facility] Radiation Stereosc X-Ray Guid For Localiz Target Volume Radiation Stereosc X-Ray Guid For Localiz Target Volume 04432 01/01 SRIDEVI BETHEA [facility] Screening Test Of Visual Acuity, Quantitative, Bilateral Screening Test Of Visual Acuity, Quantitative, Bilateral 58562 12/31 SAMANTHA OLVERA [facility] Intensity Modulated Radiation Treatment Delivery Complex Intensity Modulated Radiation Treatment Delivery Complex 83375 12/31 SRIDEVI BETHEA [facility] Radiation Stereosc X-Ray Guid For Localiz Target Volume Radiation Stereosc X-Ray Guid For Localiz Target Volume 15392 12/31 SRIDEVI BETHEA [facility] Intensity Modulated Radiation Treatment Delivery Complex Intensity Modulated Radiation Treatment Delivery Complex 56208 12/30 SRIDEVI BETHEA [facility] Radiation Stereosc X-Ray Guid For Localiz Target Volume Radiation Stereosc X-Ray Guid For Localiz Target Volume 10878 12/30 SRIDEVI BETHEA [facility] Case Management, each 15 minutes 12/29 RENÉE PIÑA [id number]: 2,7,8,13 [facility] Coordinated care fee, risk adjusted maintenance 12/29 RENÉE PIÑA [facility] IV Infusion For Hydration 31 Minutes To 1 Hour IV Infusion For Hydration 31 Minutes To 1 Hour 90830 12/29 BOUBACAR RAMEY [facility] Radiation Physics Continuing Medical Consult, Quality A ur Radiation Physics Continuing Medical Consult, Quality Assur 18808 12/29 LASHONDA GARZA [facility] Radiation Delivery High Resolution Convergent Beam 3 Or More Radiation Delivery High Resolution Convergent Beam 3 Or More 82264 12/29 LASHONDA GARZA [facility] Radiation Stereosc X-Ray Guid For Localiz Target Volume Radiation Stereosc X-Ray Guid For Localiz Target Volume 44438 12/29 LASHONDA GAZRA [facility] Radiation Delivery High Resolution Convergent Beam 3 Or More Radiation Delivery High Resolution Convergent Beam 3 Or More 62341 12/28 DANUTA LEYVA [facility] Radiation Stereosc X-Ray Guid For Localiz Target Volume Radiation Stereosc X-Ray Guid For Localiz Target Volume 83586 12/28 DANUTA LEYVA [facility] Intensity Modulated Radiation Treatment Delivery Complex Intensity Modulated Radiation Treatment Delivery Complex 34136 12/25 SRIDEVI BETHEA [facility] Radiation Stereosc X-Ray Guid For Localiz Target Volume Radiation Stereosc X-Ray Guid For Localiz Target Volume 53897 12/25 SRIDEVI BETHEA [facility] IV Infusion For Hydration 31 Minutes To 1 Hour IV Infusion For Hydration 31 Minutes To 1 Hour 89948 12/24 BRIGITTE RAMIREZ 1 liter [facility] Collection Of Blood Specimen Via Central/Peripheral Venous Catheter Collection Of Blood Specimen Via Central/Periphera l Venous Catheter 73220 12/24 BRIGITTE RAMIREZ [facility] Radiation Physics Special Consultation Radiation Physics Special Consultation 04325 12/24 TONY WADE Radiation Therapy Field Arrangement IMRT Using Multileaf Collimator Radiation Therapy Field Arrangement IMRT Using Multileaf Collimator 77637 12/24 TONY WADE Radiation Therapy Calculation Basic Dosimetry Radiation Therapy Calculation Basic Dosimetry 60041 12/24 TONY WADE Radiation Therapy Treatment Planning Complex Radiation Therapy Treatment Planning Complex 63112 12/24 TONY WADE 3-D Rendering Requiring Image Postproce ing 3-D Rendering Requiring Image Postprocessing 49559 12/24 TONY WADE Case Management, each 15 minutes 12/24 RENÉE PIÑA [id number]: 2,8,13,16 [facility] Coordinated care fee, risk adjusted maintenance, Level 3 12/24 RENÉE PIÑA [facility] Radiation Stereosc X-Ray Guid For Localiz Target Volume Radiation Stereosc X-Ray Guid For Localiz Target Volume 11789 12/24 TONY WADE [facility] Intensity Modulated Radiation Treatment Delivery Complex Intensity Modulated Radiation Treatment Delivery Complex 25132 12/24 TONY WADE IV Infusion For Hydration Each Additional Hour IV Infusion For Hydration Each Additional Hour 92802 12/22 JOEL IVY [facility] Radiation Physics Continuing Medical Consult, Quality A ur Radiation Physics Continuing Medical Consult, Quality Assur 22467 12/22 LASHONDA GARZA Intensity Modulated Radiation Treatment Delivery Complex Intensity Modulated Radiation Treatment Delivery Complex 60382 12/22 LASHONDA GARZA Radiation Stereosc X-Ray Guid For Localiz Target Volume Radiation Stereosc X-Ray Guid For Localiz Target Volume 80302 12/22 LASHONDA GARZA [facility] Medical Nutrition Therapy Initial A e ment And Intervention Each 15 Minutes Medical Nutrition Therapy Initial Assessment And Intervention Each 15 Minutes 60694 12/22 VIDHI MEDRANO Central IV PICC Insertion, Child Age 5 Or Older 12/21 LONA SANTOS Physician Supervised Injection IV Each Additional Sequential Push New Substance Physician Supervised Injection IV Each Additional Sequential Push New Substance 70628 12/21 PHIL JACKSON IV Infusion Concurr Hydration Additional Sequential Infusion IV Infusion Concurr Hydration Additional Sequential Infusion 23541 12/21 CIPRIANO JACKSONRICIA L Kym Parenteral Fluids IV Infusion Each Additional Hour Parenteral Fluids IV Infusion Each Additional Hour 38525 12/21 PHIL JACKSON Parenteral Fluids IV Infusion Additional Sequential Infusion Parenteral Fluids IV Infusion Additional Sequential Infusion 42000 12/21 PHIL JACKSON Chemotherapy IV - Infusion Up To 1 Hour Chemotherapy IV - Infusion Up To 1 Hour 08386 12/21 PHIL JACKSON Radiation Stereosc X-Ray Guid For Localiz Target Volume Radiation Stereosc X-Ray Guid For Localiz Target Volume 35197 12/21 DANUTA LEYVA Intensity Modulated Radiation Treatment Delivery Complex Intensity Modulated Radiation Treatment Delivery Complex 28019 12/21 DANUTA LEYVA Radiation Therapy Simulation-Aided Field Setting Simple Radiation Therapy Simulation-Aided Field Setting Simple 48617 12/21 DANUTA LEYVA Immunization Administration By Injection, One Vaccine Immunization Administration By Injection, One Vaccine 01546 12/17 OMAR CARDENAS VIS was given. see immunization module. [facility] Pneumococcal Conjugate Vaccine, 13-Valent, IM Use Pneumococcal Conjugate Vaccine, 13-Valent, IM Use 79798 12/17 OMAR CARDENAS Pneumococcal conjugate PCV 13; Series #: 1; .5 mL; IM; Left Arm; Mfg: [employer]ETH-LED[employer]; Lot: [id number]; VIS given (Nida: 04/10/12). [facility] Medical Nutrition Therapy Group (2 or More Individuals) Each 30 Minutes Medical Nutrition Therapy Group (2 or More Individuals) Each 30 Minutes 36044 12/17 VIDHI MEDRANO [facility] Case Management, each 15 minutes 12/14 RENÉE PIÑA Face to Face: 2,8,9,,16 [facility] Coordinated care fee, risk adjusted maintenance 12/14 RENÉE PIÑA [facility] 3-D Rendering Requiring Image Postproce ing 3-D Rendering Requiring Image Postprocessing 47454 12/11 ARELY WASHINGTON [facility] [place] Guidance For Placement Of Radiation Therapy Joshi CT Guidance For Placement Of Radiation Therapy Joshi 49334 12/11 ARELY WASHINGTON [facility] Radiation Therapy Treatment Planning Complex Radiation Therapy Treatment Planning Complex 09119 12/11 ARELY WASHINGTON [facility] Radiation Treatment Devices, Design and Construction Complex Radiation Treatment Devices, Design and Construction Complex 03620 12/11 ARELY WASHINGTON [facility] Radiation Therapy Simulation-Aided Field Setting Complex Radiation Therapy Simulation-Aided Field Setting Complex 63916 12/11 ARELY WASHINGTON [facility] Case Management, each 15 minutes 12/07 RENÉE PIÑA F to F 2,8,,16 [facility] Coordinated care fee, risk adjusted maintenance, Level 5 12/07 RENÉE PIÑA [facility] Health And Behav Intervention, Each Additional 15 Min Grp (2 Or More) Health And Behav Intervention, Each Additional 15 Min Grp (2 Or More) 79385 12/03 JESSICA JACKSON [facility] Physician Supervised Services Provision Of Educational Supplies Physician Supervised Services Provision Of Educational Supplies 75962 11/30 KINA HAWK V [facility] Case Management, each 15 minutes 11/30 RENÉE PIÑA FACE TO FACE, 2,8,,16 [facility] Coordinated care fee, risk adjusted maintenance, Level 5 11/30 RENÉE PIÑA [facility] Health And Behav A e mt Each Additional 15 Min Aurea e ment Health And Behav Assessmt Each Additional 15 Min Reassessment 59031 11/24 ANDREW LEUNG [facility] Social History Combined list of available smoking, tobacco, and other social history from Department of Defense and Veterans Affairs facilities. 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 [employer] Plan of Care List of future care activities from Department of Veterans Affairs facilities. Additional future care activities may be listed in the Assessment and Plan section. Date/Time Care Activity Care Activity Detail Facili ty 12/21/2023 AMBULATORY - REHAB MEDICINE AMBULATORY - REHAB MEDICINE [facility] 12/21/2023 Laboratory - Chemistry Order BAS IC METABOLIC PANEL+MG PLASMA [facility] 12/21/2023 Laboratory - Chemistry Order AST/SGOT GRECIA [facility]
--- OUTSIDE RECORDS SUMMARY | 2023-12-16 15:18 | XMS_ITS | Encounter Summary ---
Author Name [facility] Address [address] [place] [id number] Care Team Providers Care Computer Aided Design Technician Name Role Phone KATELYN PATTON Primary Care Provider Unavailabl e Selected Encounter This section includes the information on record at [place] for the Encounter. Date/Time Encounter Type Encounter Description Reason Pro vider Source IHE Encounter Template Text not used by [place]
--- OUTSIDE RECORDS SUMMARY | 2023-12-16 15:18 | XMS_ITS | Encounter Summary ---
Author Name [facility] Organization [facility] Address [address] [place] [address] Care Team Providers Care Distribution Analyst Name Role Phone LEIGHANN PATTON Primary Care Provider Unavailabl e Selected Encounter This section includes the information on record at NH for the Encounter. Date/Time Encounter Type Encounter Description Reason Provider Source June 27, 2023 10:00 AM OFFICE O/P NEW MOD 45 MIN PRIMARY CARE/MEDICINE ICD-10-CM C76.0 Malignant neoplasm of head, face and neck LEIGHANN PATTON IHIvette Encounter Template Text not used by [place] Assessments - Encounter Diagnoses This section includes the primary and secondary diagnoses documented for the Encounter. Date/Time Primary/Secondary Diagnosis Diagnosis Name Provider Source June 27, 2023 12:00 PM PRIMARY Malignant neoplasm of head, face and neck LEIGHANN PATTON [facility] June 27, 2023 12:00 PM SECONDARY Contact with and exposure to other hazardous substances LEIGHANN PATTON [facility] June 27, 2023 12:00 PM SECONDARY Encntr for general adult medical exam w/o abnormal findings LEIGHANN PATTON June 27, 2023 12:00 PM SECONDARY Encounter for immunization MICHELE HUNT [facility] Plan of Treatment: Future Appointments (+ 6 months) and Future Tests (+/- 45 days) The Plan of Treatment section includes future care activities for the [facility] This section includes future appointments and future orders which are active, pending or scheduled. Future Appointments This section includes appointments that were scheduled to occur 6 months from the date of the Encounter, up to a maximum of 20 appointments. The data comes from all [facility]. Appointment Date/Time Appointment Type Appointme nt Facility Name Jul 24, 2023 08:30 AM [facility] Aug 15, 2023 09:00 AM AM[facility]UL[facility] - SURGERY [facility] Sep 03, 2023 09:00 AM AMBULATORY - MEDICINE [facility] Oct 01, 2023 02:30 PM AMBULATORY - NONE [facility] Oct 01, 2023 03:00 PM AMBULATORY - REHAB MEDICIN [facility] Oct 26, 2023 05:30 PM AMBULATORY - REHAB MEDICIN E [facility] Nov 26, 2023 02:00 PM AMBULATORY - NONE [facility] Nov 28, 2023 10:30 AM AMBULATORY - REHAB MEDICIN E [facility] Dec 21, 2023 11:30 AM AMBULATORY - REHAB MEDICIN [facility] Active, Pending, and Scheduled Orders This section includes a listing of several types of active, pending, and scheduled orders, including clinic medications orders, diagnostic test orders, procedure orders and consult orders; where the start date of the order is 45 days before the date of the Encounter or 45 days after the date of theEncounter. The data comes from all [facility]. Test Date/Time Test Type Test Details Facility Name June 27, 2023 12:00 AM Laboratory - Chemi stry Order OCCULT BLOOD FIT X1 SCREEN STOOL FECES SP ONCE [facility] Lab Results: +/- 30 days of the encounter This section includes the Chemistry and Hematology Lab Results on record with NH for the patient. Radiology Reports and Pathology Reports are provided separately, in subsequent sections. Lab Results This section contains the Chemistry/Hematology Results that were resulted 30 days before or 30 daysafter the date of the Encounter. Date/Time Source Result Type Result - Unit Interpretation Reference Range Comment June 27, 2023 11:[address] [facility] THYROID STIMULATING IMMUNOGLOBULIN Specimen Type: SERUM Comment: REFERENCE RANGE: <140 % baseline Thyroid stimulating immunoglobulins (TSI) can engage the TSH receptors resulting in hyperthyroidism in Graves' disease patients. TSI levels can be useful in monitoring the clinical outcome of Graves' disease as well as assessing the potential for hyperthyroidism from maternal- transfer. TSI results greater than or equal to (>=) 140% of the Reference Control are considered positive. NOTE: A serum TSH level greater than 350 micro-Internatio nal Units/mL can interfere with the TSI bioassay and potentially give false positive results. Patients who are and are suspected of having hyperthyroidism should have both TSI and human Chorionic Gonadotropin(hCG ) tests measured. A serum hCG level greater than 40,625 mIU/mL can interfere with the TSI bioassay and may give false negative results. In these patients it is recommended that a second TSI be obtained when the hCG concentration falls below 40,625 mIU/mL (usually after approximately 20-weeks gestation). The analytical performance characteristics of this assay have been determined by [facility] [place], [place]. The modifications have not been cleared or approved by the FDA. This assay has been validated pursuant to the CLIA regulations and is used for clinical purposes. Test Performed by [facility], [facility], [address] [place] [address] Michael Jimenez M.D., Ph.D., Director of Laboratories , CLIA [id number] Ordering Provider: LEIGHANN PATTON Report Released Date/Time: June 27, 2023 11:49 AM Reporting Lab: [facility] [id number] Performing Lab: [address] THYROID STIMULATING IMMUNOGLOBULIN <89 SEE BELOW June 27, 2023 11:54 AM [facility] TOTAL T3 Specimen Type: SERUM No comment entered. Ordering Provider: LEIGHANN PATTON Report Released Date/Time: June 27, 2023 11:49 AM Reporting Lab: [facility] [id number] Performing Lab: [facility] [id number] TOTAL T3 79 ng/dL 35-193 June 27, 2023 11:02 AM [facility] PSA Specimen Type: SERUM No comment entered. Ordering Provider: LEIGHANN PATTON Report Released Date/Time: June 27, 2023 10:36 AM Reporting Lab: [facility] [phone] Performing Lab: [facility] [id number] PSA 2.07 ng/mL <4.00 June 27, 2023 11:02 AM [facility] HEMOGLOBIN A1C Specimen Type: BLOOD Comment: Values obtained from A1C measurements can vary. For typical A1C assays, a reported value of 7.0 could actually be between 6.7 and 7.3 if measured by a reference method. A reported value of 9.0 could actually be between 8.7 and 9.3. Ref: http://www.ngsp. org/CAPdata.asp Ordering Provider: LEIGHANN PATTON Report Released Date/Time: June 27, 2023 10:36 AM Reporting Lab: [facility] [id number] Performing Lab: [facility] [id number] HEMOGLOBIN A1C 5.2 4.0-6.0 June 27, 2023 11:02 AM [facility] COMPREHENSIVE METABOLIC PANEL+MG Specimen Type: PLASMA No comment entered. Ordering Provider: LEIGHANN PATTON Report Released Date/Time: June 27, 2023 10:36 AM Reporting Lab: [facility] [id number] Performing Lab: [facility] [phone] CREATININE 1.4 mg/dL H 0.7-1.2 UREA NITROGEN 26 mg/dL 8-26 GLUCOSE 97 mg/dL 70-100 SODIUM 141 mmol/L 136-145 POTASSIUM 4.0 mmol/L 3.5-5.1 CHLORIDE 109 mmol/L H 98-107 CO2 26 mmol/L 22-29 CALCIUM 9.3 mg/dL 8.4-10.2 PROTEIN,TOTAL 6.3 g/dL 6.0-8.3 ALBUMIN 3.7 g/dL 3.5-5.2 BILIRUBIN, TOTAL 0.5 mg/dL 0.2-1.2 MAGNESIUM 2.2 mg/dL 1.6-2.6 ANION GAP 6 mmol/L 5-15 ALKALINE PHOSPHATASE 65 U/L 40-150 ALT/SGPT 31 U/L <55 AST/SGOT 40 U/L H <34 .CREAT EGFR(CKD-EPI) 58 L >60 June 27, 2023 11:02 AM [facility] LIPID PANEL,NON-FASTING Specimen Type: PLASMA No comment entered. Ordering Provider: LEIGHANN PATTON Report Released Date/Time: June 27, 2023 10:36 AM Reporting Lab: [facility] [phone] Performing Lab: [facility] [id number] CHOLESTEROL 169 mg/dL <199 .HDL 57 mg/dL >40 LDL CALCULATION 102 mg/dL H <99 VLDL CALCULATION 10 mg/dL <29 NON HDL CHOLESTEROL 112 mg/dL <129 TRIG(NON FASTING) 50 mg/dL <149 June 27, 2023 11:02 AM [facility] TSH W/REFLEX TO FREE T4 Specimen Type: PLASMA No comment entered. Ordering Provider: LEIGHANN PATTON Report Released Date/Time: June 27, 2023 10:36 AM Reporting Lab: [facility] [id number] Performing Lab: [facility] [id number] TSH 0.95 u[IU]/mL 0.35-4.94 FREE T4 1.11 ng/dL 0.70-1.48 June 27, 2023 11:02 AM [facility] CBC Specimen Type: BLOOD No comment entered. Ordering Provider: LEIGHANN PATTON Report Released Date/Time: June 27, 2023 10:36 AM Reporting Lab: [facility] [id number] Performing Lab: [facility] [phone] WBC 5.24 10*3/uL 4.0-11.0 RBC 4.76 10*6/uL 4.6-6.2 HGB 14.6 g/dL 13.5-17.9 HCT 43.7 41-54 MCV 91.8 fL 80-100 MCH 30.7 pg 27-33 MCHC 33.4 g/dL 32.0-37.5 PLT 233 10*3/uL 150-400 MPV 10.6 fL H 7.4-10.4 RDW 12.5 11.5-14.5 June 27, 2023 11:02 AM [facility] FREE-T4 Specimen Type: PLASMA No comment entered. Ordering Provider: LEIGHANN PATTON Report Released Date/Time: June 27, 2023 10:36 AM Reporting Lab: [facility] [phone] Performing Lab: [facility] [phone] FREE T4 1.11 ng/dL 0.70-1.48 Vital Signs: All taken on the encounter date This section contains inpatient and outpatient Vital Signs collected on the date of the Encounter. Date/Time Temperature Pulse Blood Pressure Respiratory Rate SP02 Pain Height Weight Body Mass Index Source June 27, 2023 09:55 AM 97.8 84 104/70 14 95 2 72.441 219.8 30 [facility] Immunizations: All administered on the encounter date This section contains immunizations associated to the Encounter. Immunization Series Date Issued Reaction Comments ZOSTER RECOMBINANT 1 June 27, 2023 42P4 L 05/25/25 Social History: Smoking Status (Most current) and Tobacco Use (All prior to encounter date) This section includes the most current, and the historical, smoking and tobacco- related health factors from the [place] facility where the Encounter took place. Current Smoking Status This section includes the most current smoking, or tobacco-related health factor, from the NH facility where the Encounter took place. Date/Time Current Smoking Status Comment Facil ity June 27, 2023 10:00 AM VA-TOBACCO NEVER USED [facility] Encounter Notes: All associated encounter notes This section contains the clinical notes associated to the Encounter. Date/Time Encounter Note(s) Provider Source July 13, 2023 02:09 PM ADDENDUM: LOCAL TITLE: Addendum STANDARD TITLE: ADDENDUM DATE OF NOTE: JULY 13, 2023@14:09:43 ENTRY DATE: JULY 13, 2023@14:09:43 AUTHOR: LEIGHANN PATTON EXP COSIGNER: URGENCY: STATUS: COMPLETED Please update below information. -I have ordered CT C/A/P to assess weight loss. Please wait for radiology department to schedule the visit. -Heme-onc department recommended that your surveillance of neck cancer should be managed by ENT at NH since you do not have any evidence of recurrence of the cancer heme-onc does not need to see you. -I have placed ENT consult for establishment of care and follow-up on your swallowing difficulty. /sarwat/ LEIGHANN PATTON DNP,SENIOR INFORMATICA DEVELOPER,ARDMS Signed: 07/13/2023 14:13 Receipt Acknowledged By: 07/16/2023 10:30 /es/ DANUTA DONNY HUNT RESIDENTIAL ROOFER HELPER --- Original Document --- 06/27/23 [facility] ANNUAL VISIT: Today's Nurse check-in note reviewed. seen in the clinic today. Followed all current PPE guidelines during the visit. Preferred name: [facility] Patient brought in outside medical records and have been reviewed: yes past [facility]- PCP- [facility], Suzanna Alston DO Past Non-[facility] specialist: [facility], [facility], [facility], [facility] *JLV = active Chief complaint: A new patient patient here to establish primary care and for Wellness and preventive medicine visit. He is currently established with mental health and now following mental health provider in the community with community care. 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 Followed Endo in [place] and started on levothyroxine 100 mcg daily and liothyronine 5 mcg daily since 2017 currently having a very bad heat and cold intolerance, recently had 10 to 15 pound of weight loss in 2 months, has dysphagia and lack of taste and saliva, he is feeling that since his chemo and radiation he lost appetite, he is able to exercise daily, no changes in bowl habits, no skin or nail changes, TSH from 08/21/2022 was 1.58. He would like to transfer care here at NH #Squamous cell carcinoma of neck-diagnosed in 2014, followed [facility], last EGD and biopsy 03/2022, his oncologist at [facility] left and looking to transfer care to [facility], chronic dysphagia and lack of taste and saliva #Urinary frequency/ BPH -trial of Flomax in the past with benefits, stopped taking Flomax 1 year ago -ran out of prescription at that time , asking to restart Flomax, denies any previous side effects, followed [facility] in the past #Mental health-stable, follows mental health provider in the community via community care, going through a divorce but having good relationship with his soon-to-be ex-, denies any SI or HI Review of Systems: Denies chest pain, shortness of breath, recent significant. weight changes, rash, bowel or bladder changes, new joint pain or swelling, headaches, lightheadedness, vision changes, new numbness or tingling or weakness. Remainder of the ROS is negative, except as above. Past Medical History: Active problems - Computerized Problem List is the source for the followin. Squamous cell carcinoma of head and neck - 04/10/2022- EGD and biopsy done- result- gastric mucosa with reactive gastropathy and focal intestinal metaplasia 2. Iatrogenic hypothyroidism 3. Cervicalgia 4. Adjustment disorder with depressed mood 5. 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 Mallet finger - Mallet finger of right hand 7. History of right hip replacement 8. Hypothyroidism 9. Gastroesophageal reflux disease Past surgical history: - hernia repair- 2001 - right hip replacement- 2021 - tonsillectomy- 2020 Service: Service [facility] Service # Entered Discharge MAR 15, 2014 NOV 07, 2015 [facility] [id number] JUN 05, 2010 AUG 15, 2011 [facility] [id number] SEP 15, 2007 NOV 02, 2008 [facility] [id number] NOV 16, 2003 AUG 10, 2004 HONORABLE Allergies: ACETAMINOPHEN/HYDROCODONE (June 27, 2023) TAPE (June 27, 2023) SEASONAL ALLERGIES (June 27, 2023) Avg Risk Colorectal Cancer Screen: AVERAGE RISK colorectal cancer screening is due based on information available to this clinical reminder FOBT/FIT (Fecal Immunochemical Testing) has been ordered. See order tab for details. Hepatitis C Testing: Prior negative anti-HCV test. Date: September 05, 2022 Location: [facility] Source of result: [facility] Medication Reconciliation: Education Evaluations *Was medication education provided for NEW medications or CHANGES to medications? (including medication name, dose, route, reason for use, and potential side effects). Yes. Verbal education was provided to patient/caregiver and patient/caregiver verbalized understanding. TERATOGENIC MED & CONTRACEPTION REVIEW (Optional)... = MEDICATION RECONCILIATION = Review Done: The medication list shown below was verified for accuracy and it includes all pending medications/active medications/all medications or discontinued within the last 90 days/all remote medications and non-VA medications. If a given category (i.e. remote meds) is not shown, that means that a patient doesn't have a medication(s) in that category. Allergies listed below were also reviewed/updated for accuracy. Allergies/ADR from [facility] may not display in CPRS. Use JLV MRT5 - Allergies/ADRs FACILITY ALLERGY/ADR -------- No Remote Allergy/ADR Data available for this patient [facility] ACETAMINOPHEN/HYDROCODONE [facility] SEASONAL ALLERGIES [facility] TAPE Active and Recently Outpatient Medications (including Supplies): Issue Date Status Last Fill Pending Outpatient Medications Refills Expiration 1) CETIRIZINE HCL 10MG TAB Qty: 90 Sig: PENDING TAKE ONE TABLET BY MOUTH EVERY MORNING Refills: 0 2) LEVOTHYROXINE NA (SYNTHROID) 100MCG TAB PENDING Qty: 90 Sig: TAKE ONE TABLET BY MOUTH Refills: 0 EVERY DAY 3) LIOTHYRONINE NA 5MCG TAB Qty: 90 Sig: PENDING TAKE ONE TABLET BY MOUTH EVERY MORNING Refills: 0 4) OMEPRAZOLE 20MG EC CAP Qty: 45 Sig: PENDING TAKE ONE CAPSULE BY MOUTH EVERY DAY Refills: 0 NEEDED 5) ONDANSETRON 4MG ORAL DISINTEGRATING TAB PENDING Qty: 20 Sig: DISSOLVE ONE TABLET BY Refills: 0 UNDER THE TONGUE EVERY MORNING NEEDED 6) TAMSULOSIN HCL 0.4MG CAP Qty: 90 Sig: PENDING TAKE ONE CAPSULE BY MOUTH EVERY Refills: 0 MORNING Start Date Active Non-VA Medications Refills Expiration 1) Non-VA MULTIVITAMIN CAP/TAB Si ACTIVE TABLET MOUTH EVERY DAY Start Date Inactive Non-VA Medications Refills Expiration 1) Non-VA LIOTHYRONINE NA 5MCG TAB Sig: DISCONTINUED 5MCG MOUTH EVERY DAY 8 Total Medications Physical Exam: Vitals: BP: 104/70 (06/27/2023 09:55) P: 84 (06/27/2023 09:55) R: 14 (06/27/2023 09:55) T: 97.8 F [36.6 C] (06/27/2023 09:55) WT: 219.8 lb [99.70 kg] (06/27/2023 09:55) BMI: 29.5 Pain: 2 (06/27/2023 09:55) O2 Sat: 95% (06/27/2023 09:55) GENERAL: Alert and oriented x 3, No acute distress, Well-nourished, dressed and groomed HEENT: Normocephalic, atraumatic, ear canals clear, TMs normal, OP clear, neck supple without mass, no adenopathy or thyromegaly LUNGS: Clear to auscultation bilaterally, No accessory muscle use no wheezes, rhonchi or rales CV: RRR without murmur, rub or gallop GI: Abdomen non distended, soft, non-tender, normal bowel sounds in all quadrants, no palpable mass SKIN: Warm and moist, no rash or erythema MSK: No joint swelling, ambulates without difficulty EXTREMITIES: No edema, no swelling NEUROLOGIC: No focal neurological deficits, CN II-XII grossly intact, but not individually tested PSYCHIATRIC: Cooperative, Good eye contact,Appropriate mood and affect Assessment/Plan: Wellness/screening visit completed. Counseling and education provided today includes proper nutrition and health habits, fall prevention, and for those labs and consults ordered today #Annual exam - meds: reviewed, updated and renewed -Ordered routine labs today - the ACTIVE PROBLEM LIST above is considered to be the Past Medical History for the purposes of this note; it was reviewed at the time of this visit and no changes unless otherwise noted above #Health Maintenance/Wellness -Exercise: Daily workout 25-30 min cardio with light weight lifting 5-6x/week -Diet: well balanced -Dental: no concerns -Hearing: no concerns, audiology contact information given -Eye Exam: no concerns, vision clinic contact information given -ASCVD Risk(http://tools.acc.org/ASC KT-Btlt-Vxqxwynov/): Low- Cancer screening: ---> Prostate: PSA ordered today ---> Colon: FIT ordered --->AAA Screening: Not applicable ---->Lung CT -not applicable #Chronic left hip pain- -recommended him to start physical therapy here at the clinic -refused -He would like to put this on hold and just work on his own for his chronic pain , in future if worsening pain then he will reach out to us #Iatrogenic hypothyroidism- -Refilled his levothyroxine 100 mcg daily and liothyronine 5 mcg daily -Metabolic/endocrinology consult placed for [facility] E -TSH, T3-T4 and TSI ordered today #Squamous cell carcinoma of neck- -he would like to have routine surveillance and also with new symptoms of weight loss he would like to follow-up with heme-onc -heme-onc consult placed for [facility] E #Urinary frequency/ BPH - -PSA ordered today -Restarted Flomax 0.4 mg daily, he will monitor for any side effects and if worsening symptoms noted or no improvement noted then he will update us I will follow up with the on labs. If all is well we can see back in a year. understands and agrees to the plan. Follow up as discussed. Sooner if questions or concerns. Disclaimer: This note consists of symbols derived from keyboarding, dictation and/or voice recognition software. As a result, there may be errors in the script that have gone undetected. Please consider this when interpreting information found in this chart. Avg Risk Colorectal Cancer Screen: AVERAGE RISK colorectal cancer screening is due based on information available to this clinical reminder FOBT/FIT (Fecal Immunochemical Testing) has been ordered. See order tab for details. Toxic Exposure Screening Follow-Up: Exposure Concern(s): 06/27/2023 Airborne Hazards/Open Burn Pit - Toxic Exposure Concern Follow-up Question(s): 06/27/2023 Benefits/Claims Questions - Toxic Exposure Concern Health/Medical Questions - Toxic Exposure Concern Registry Questions - Toxic Exposure Concern [place] Healthcare Enrollment Questions - Toxic Exposure Concern [place]/caregiver has no health or medical concerns related to their concern of environmental exposure. 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 LEIGHANN PATTON [facility] June 29, 2023 09:41 AM LETTERS: LOCAL TITLE: FOLLOW UP RESULTS LETTER STANDARD TITLE: LETTERS DATE OF NOTE: JUNE 29, 2023@09:41 ENTRY DATE: JUNE 29, 2023@09:41:19 AUTHOR: LEIGHANN PATTON EXP COSIGNER: URGENCY: STATUS: COMPLETED [facility] [address] [place] [address] June FOZIA WARE [address] [place] [address] Dear [place]: I am writing to inform you of the results of the tests you had done at the [facility]. See my comments below. - Cholesterol Tests (HDL = good and LDL = bad) CHOLESTEROL 169 (06/27/23) (prefer less than 200) TRIGLYCERIDE____ (prefer less than 150) HDL 57 (06/27/23) (prefer more than 39) LDL CALCULATION 102 H (06/27/23) (prefer less than 100) MEASURED LDL____ (prefer less than 100) - Complete Blood Count (red/white blood cell counts and platelets) White count: WBC 5.24 (06/27/23) (normal is 4.0-11.0) Hemoglobin: HGB 14.6 (06/27/23) (normal Male is 13.5-17.9) (normal Female is 11.5-16) Hematocrit: HCT 43.7 (06/27/23) (normal Male is 41-54) (normal Female is 34.5-48) Platelets: PLT 233 (06/27/23) (normal is 150-400) - Electrolytes including sodium and potassium SODIUM 141 (06/27/23) (normal is 137-144) POTASSIUM 4.0 (06/27/23) (normal is 3.5-5.0) CHLORIDE 109 H (06/27/23) (normal is 98-107) CO2 26 (06/27/23) (normal is 22-29) UREA NITROGEN 26 (06/27/23) (normal Male is 8-26) (normal Female is 8-20) CREATININE 1.4 H (06/27/23) (normal Male is 0.7-1.2) (normal Female is 0.5-1.0) GLUCOSE 97 (06/27/23) (normal is 70-100) CALCIUM 9.3 (06/27/23) (normal is 8.4-10.2) MAGNESIUM 2.2 (06/27/23) (normal is 1.6-2.6) EGFR (09/15) - NONE FOUND - 5Y CREATININE EGFR (CKD-EPI) 06/27/2023@1102 58 L(normal is >/=60) - Liver function Tests AST/SGOT 40 H (06/27/23) (normal is 5-34) ALT/SGPT 31 (06/27/23) (normal is </= 55) ALK PHOSPHATASE 65 (06/27/23) (normal is 40-150) ALBUMIN 3.7 (06/27/23) (normal is 3.5-5.2) BILIRUBIN, TOTAL 0.5 (06/27/23) (normal is 0.3-1.2) - Glycosylated Hemoglobin (good diabetic control if less than 7.0) HEMOGLOBIN A1C 5.2 (06/27/23) (normal range is 4.0-6.0) POC HGB A1C____ - Thyroid Function: TSH 0.95 (06/27/23) (normal 0.3-4.94) - Prostate Test: PSA 2.07 (06/27/23) (normal is </= 3.99) Comments: #Mildly elevated LDL but cholesterol and HDL are within normal range. Continue current lifestyle modification and regular exercise. No medication needed #Your thyroid function tests are within normal range, I am still waiting on 1 more thyroid test result. We will update you once it is available. #Your creatinine (kidney function) is mildly elevated, this could be related to dehydration but I would like to recheck your kidney function at 6 months. I will put the order and you can call our clinic to schedule 6 months lab follow-up visit at [phone]. #One of your liver functions elevated as well which I would like to repeat the lab at 6 months along with your kidney function test. If you have any questions or concerns please reach out to us at [phone]. Sincerely, LEIGHANN PATTON DNP,CE,[facility] June 27, 2023 09:58 AM PRIMARY CARE NURSI SAMANTHA NOTE: LOCAL TITLE: [facility] NURSING PROGRESS NOTE STANDARD TITLE: PRIMARY CARE NURSING NOTE DATE OF NOTE: JUNE 27, 2023@09:58 ENTRY DATE: JUNE 27, 2023@09:58:14 AUTHOR: DANUTA HUNT EXP COSIGNER: URGENCY: STATUS: COMPLETED TYPE OF VISIT: Appointment Check In Type of appointment: In-person appointment REASON FOR VISIT: Reestablishing Care ALLERGIES: ACETAMINOPHEN/HYDROCODONE (June 27, 2023) TAPE (June 27, 2023) SEASONAL ALLERGIES (June 27, 2023) VITAL SIGNS: Blood Pressure: 104/70 (06/27/2023 09:55) Pulse: 84 (06/27/2023 09:55) Respiration: 14 (06/27/2023 09:55) Temperature: 97.8 F [36.6 C] (06/27/2023 09:55) Weight: 219.8 lb [99.70 kg] (06/27/2023 09:55) Height: 72.441 in [184.0 cm] (06/27/2023 09:55) BMI: 29.5 O2 Sat: 95% (06/27/2023 09:55) Pain: 2 (06/27/2023 09:55) PAIN SCREEN: Patient is having significant pain that they would like to talk to their provider about today. Old (Chronic) (began more than 6 months ago) Patient states their average pain this past week is 2 Patient states the average number on how the chronic pain affects their enjoyment of life the past week is 0 Patient states during the past week the average number on how the pain has interfered with their general activity is 0 MEDICATION Active Outpatient Medications (including Supplies): Non-VA CETIRIZINE HCL 10MG TAB 10MG MOUTH EVERY DAY ACTIVE Non-VA LEVOTHYROXINE NA (SYNTHROID) 100MCG TAB 0.1MG MOUTH ACTIVE EVERY DAY Non-VA LIOTHYRONINE NA 5MCG TAB 5MCG MOUTH EVERY DAY ACTIVE Non-VA MULTIVITAMIN CAP/TAB 1 TABLET MOUTH EVERY DAY ACTIVE Hepatitis C Testing: Patient has given verbal consent for HCV antibody testing. An HCV lab test has been ordered - see orders tab. Toxic Exposure Screening: The [place]/caregiver was asked if they believe the [place] experienced any toxic exposure(s), such as Airborne Hazards and Open Burn Pit, Cotton War related exposures, Agent [place], Radiation, contaminated water at [place] or other such exposures, while serving in the [employer]. [place]/caregiver believes the [place] was exposed to the following while serving in the [employer]: Airborne Hazards and Open Burn Pit: [place]/caregiver was made aware of educational resources that includes information on the Registry Program, presumptive conditions and how to file a claim. Printed information was offered and provided if desired. Health/Medical Questions All patients who report a health/medical concern will receive follow-up from a clinician. For urgent or emergent concerns, they were advised to follow local facility policy. Benefits/Claims Questions [place]/caregiver was informed of local point of contact. [facility] Health Care Enrollment and Eligibility Questions /caregiver was informed of local point of contact. Registry Questions [place]/caregiver was informed of local point of contact. Contact information for local resources: - Veterans Benefits for claims submission: Have the call or have them visit the following web address for online scheduling: [email or web address] - [facility] Healthcare Enrollment: [phone] ([phone]) - Find a [place] Textile Worker (VSO): Have the call 6-700-YSANARG or look up their VSO at: https://www.[employer].org/find-a -cvso.html - [facility] Navigators: Kenzie Hernández, [facility] [phone] Toxic Exposure Screening Follow-Up reminder is needed. Name of person notified: Leighann Patton NP COVID-19 Immunization: Defer vaccine, reassess in 1 year Reason: Refused Suicide Screen: C-SSRS Screening [place] Suicide Severity Rating Scale (C-SSRS) screener 1. Over the past month, have you wished you were or wished you could go to sleep and not wake up? Yes 2. Over the past month, have you had any actual thoughts of killing yourself? Yes 3. Over the past month, have you been thinking about how you might do this? No 4. Over the past month, have you had these thoughts and had some intention of acting on them? No 5. Over the past month, have you started to work out or worked out the details of how to kill yourself? No 6. If yes, at any time in the past month did you intend to carry out this plan? Response not required due to responses to other questions. 7. In your lifetime, have you ever done anything, started to do anything, or prepared to do anything to end your life (for example, collected pills, obtained a gun, gave away valuables, went to the roof but didn't jump)? No 8. If YES, was this within the past 3 months? Response not required due to responses to other questions. Tobacco Pack Year History: Patient never smoked cigarettes or smoked FEWER THAN 100 cigarettes/lifetime Alcohol Use Screen (AUDIT-C): Alcohol Screen: SCREEN FOR ALCOHOL (AUDIT-C) An alcohol screening test (AUDIT-C) was negative (score=3). 1. How often did you have a drink containing alcohol in the past year? Consider a drink to be a 12 ounce can or bottle of regular beer, 8 ounces of malt liquor, a 5 ounce glass of table wine, or a 1.5 ounce shot of liquor (like scotch, gin, or vodka). Two to three times per week 2. How many drinks containing alcohol did you have on a typical day when you were drinking in the past year? One or two drinks 3. How often did you have six or more drinks on one occasion in the past year? Never PTSD Screening: PC-PTSD-5 A PTSD screening test (PC-PTSD-5) was negative (score=0). IN THE PAST MONTH, have you ever had any experience that was so frightening, horrible or traumatic. For example: A serious accident or fire a physical or sexual assault or abuse An earthquake or flood A war Seeing someone be killed or seriously injured Having a loved one through homicide or suicide 1. Have you ever experienced this kind of event? YES 2. Had nightmares about the event(s) or thought about the event(s) when you did not want to? NO 3. Tried hard not to think about the event(s) or went out of your way to avoid situations that reminded you of the event(s)? NO 4. Been constantly on guard, watchful, or easily startled? NO 5. [place] numb or detached from people, activities, or your surroundings? NO 6. [place] guilty or unable to stop blaming yourself or others for the event(s) or any problems the event(s) may have caused? NO Nursing Annual Screening: Fall History Screen During the past 12 months, have you had any falls? Patient does not report any falls in the past 12 months. MEDICATIONS: Patient does not have an active prescription for one of the following medications: Antihypertensives, Antidepressants, Antipsychotics, Diuretics, or Opioid Analgesics (Contolled Substance medications used for pain). Skin Screen Patient reports any current pressure ulcers, a history of pressure ulcers, or a wound from a medical management trainer or Patient is bed-confined or a wheelchair-user or Patient requires assistance to transfer/change position No, Skin Screen is Negative Home Abuse/Violence Screen Is your home free of abuse and violence? Yes MOVE! Program Screen Body Mass Index (BMI)= 29.5 [place]: No data available [place] Hgb A1C: No data available [place] Hgb A1C: No data available Point of Care Hgb A1C: POC HGB A1C____ No Outpatient Nutrition Screen Body Mass Index (BMI)= 29.5 [place]: No data available [place] Hgb A1C: No data available [place] Hgb A1C: No data available Point of Care Hgb A1C: POC HGB A1C____ Is patient's BMI less than 18.5? No Does patient have swallowing, coughing, or chewing problems affecting oral intake? No Has patient experienced unplanned weight loss or gain greater than 10 pounds over the last 2 months? Yes Is patient's Hgb A1C (Glycosylated Hemoglobin) greater than 9.5? Information not available Is patient receiving Total Parenteral Nutrition (TPN) or Tube Feedings? No Patient Health Education Screen BARRIERS/SPECIAL NEEDS: Visual limitations Cognitive limitations PREFERRED STYLE OF LEARNING: Watching something Client Assistive Service (ESTEFANY) Screen Does the patient require assistance with outpatient visit? No MST Screening: Patient denies experiencing sexual trauma (MST). 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 1. The [place] experienced the following events during deployment: Patient denies experiencing any TBI related events during deployment. Negative Screen Tobacco Use Screening: The patient has never used tobacco. Screen for Embedded Fragments: SCREEN FOR EMBEDDED FRAGMENTS The patient reports no embedded fragments. Homelessness/Food Insecurity Screen: In the past 2 months, have you been living in stable housing that you own, rent, or stay in as part of a household? Yes - Living in stable housing. Are you worried or concerned that in the next 2 months you may NOT have stable housing that you own, rent, or stay in as part of a household? No - Not worried about housing near future The [place] reports the following: Within the past 12 months, you worried whether your food would run out before you got money to buy more. Never true Within the past 12 months, the food you bought just didn't last and you didn't have money to get more. Never true Food Assistance Programs [facility] Food Assistance Programs [facility] Tdap Immunization: The patient declines to receive the recommended dose of Tdap vaccine. Immunization: TDAP Refusal Reason: OTHER Patient refuses all immunization(s) in the TDAP group Comment: TD Date Documented: 06/27/23 10:10 ADV DIR Notification and Screening: ADVANCE DIRECTIVE NOTIFICATION: I was unable to give the patient written notification of the following rights because: Comment: Refused ADVANCE DIRECTIVE SCREENING: Does patient have an Advance Directive? The patient does not have an Advance Directive. The patient does not wish to create an Advance Directive for health care. Herpes Zoster (Shingles) Vaccine: Recombinant zoster vaccine (Shingrix, RZV) dose #1 Administered: ZOSTER RECOMBINANT Date Administered: June 27, 2023 10:00 Series: Series 1 Crystalizer Operator: Agent Panda Lot: [id number] Exp Date: May 25, 2025 [facility]: [phone] Admin Route/Site: INTRAMUSCULAR/RIGHT DELTOID Dosage: 0.5mL Vaccine Information Statement(s): RECOMBINANT ZOSTER VACCINE VIS Mar 18, 2021 (ICELANDIC) Order By: Policy Administered By: Danuta Hunt Comment: [id number] 05/25/25 Vaccine Information Sheet (VIS) was given to the patient/caregiver, education regarding adverse reactions was discussed, as well as barriers to learning, if any, were acknowledged. Would like ortho referral. Edno refferal for Thyroid. Pts. had bilateral knee pain and shoulder pain since service. Pt. would like Primary [facility] be at the [facility] PCP. /sarwat/ DANUTA HUNT LPN Signed: 06/27/2023 10:23 DANUTA HUNT [facility] June 27, 2023 08:21 AM H & P NOTE: LOCAL TITLE: CBOC ANNUAL VISIT STANDARD TITLE: H & P NOTE DATE OF NOTE: JUNE 27, 2023@08:21 ENTRY DATE: JUNE 27, 2023@08:21:34 AUTHOR: LEIGHANN PATTON EXP COSIGNER: URGENCY: STATUS: COMPLETED [facility] ANNUAL VISIT Has ADDENDA Today's Nurse check-in note reviewed. [place] seen in the clinic today. Followed all current PPE guidelines during the visit. Preferred name: Fozia Patient brought in outside medical records and have been reviewed: yes past Non-Va- PCP- [facility], Suzanna Alston DO Past Non-Va specialist: [facility], [facility], [facility] endocrinology, [facility] *JLV = active Chief complaint: A new patient patient here to establish primary care and for Wellness and preventive medicine visit. He is currently established with mental health and now following mental health provider in the community with community care. 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 Followed [facility] in [facility] and started on levothyroxine 100 mcg daily and liothyronine 5 mcg daily since 2017 currently having a very bad heat and cold intolerance, recently had 10 to 15 pound of weight loss in 2 months, has dysphagia and lack of taste and saliva, he is feeling that since his chemo and radiation he lost appetite, he is able to exercise daily, no changes in bowl habits, no skin or nail changes, TSH from 08/21/2022 was 1.58. He would like to transfer care here at NH #Squamous cell carcinoma of neck-diagnosed in 2014, followed [facility], last EGD and biopsy 03/2022, his oncologist at [facility] left and looking to transfer care to [facility], chronic dysphagia and lack of taste and saliva #Urinary frequency/ BPH -trial of Flomax in the past with benefits, stopped taking Flomax 1 year ago -ran out of prescription at that time , asking to restart Flomax, denies any previous side effects, followed [facility] in the past #Mental health-stable, follows mental health provider in the community via community care, going through a divorce but having good relationship with his soon-to-be ex-, denies any SI or HI Review of Systems: Denies chest pain, shortness of breath, recent significant. weight changes, rash, bowel or bladder changes, new joint pain or swelling, headaches, lightheadedness, vision changes, new numbness or tingling or weakness. Remainder of the ROS is negative, except as above. Past Medical History: Active problems - Computerized Problem List is the source for the followin. Squamous cell carcinoma of head and neck - 04/10/2022- EGD and biopsy done- result- gastric mucosa with reactive gastropathy and focal intestinal metaplasia 2. Iatrogenic hypothyroidism 3. Cervicalgia 4. Adjustment disorder with depressed mood 5. 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 Mallet finger - Mallet finger of right hand 7. History of right hip replacement 8. Hypothyroidism 9. Gastroesophageal reflux disease Past surgical history: - hernia repair- 2001 - right hip replacement- 2021 - tonsillectomy- 2020 Service: Service [employer] Service # Entered Discharge [facility] MAR 15, 2014 NOV 07, 2015 [facility] [id number] JUN 05, 2010 AUG 15, 2011 [facility] [id number] SEP 15, 2007 NOV 02, 2008 [facility] [id number] NOV 16, 2003 AUG 10, 2004 HONORABLE Allergies: ACETAMINOPHEN/HYDROCODONE (June 27, 2023) TAPE (June 27, 2023) SEASONAL ALLERGIES (June 27, 2023) Avg Risk Colorectal Cancer Screen: AVERAGE RISK colorectal cancer screening is due based on information available to this clinical reminder FOBT/FIT (Fecal Immunochemical Testing) has been ordered. See order tab for details. Hepatitis C Testing: Prior negative anti-HCV test. Date: September 05, 2022 Location: [facility] Source of result: [facility] Medication Reconciliation: Education Evaluations *Was medication education provided for NEW medications or CHANGES to medications? (including medication name, dose, route, reason for use, and potential side effects). Yes. Verbal education was provided to patient/caregiver and patient/caregiver verbalized understanding. TERATOGENIC MED & CONTRACEPTION REVIEW (Optional)... = MEDICATION RECONCILIATION = Review Done: The medication list shown below was verified for accuracy and it includes all pending medications/active medications/all medications or discontinued within the last 90 days/all remote medications and non-VA medications. If a given category (i.e. remote meds) is not shown, that means that a patient doesn't have a medication(s) in that category. Allergies listed below were also reviewed/updated for accuracy. Allergies/ADR from [facility] may not display in CPRS. Use JLV MRT5 - Allergies/ADRs FACILITY ALLERGY/ADR -------- No Remote Allergy/ADR Data available for this patient [facility] ACETAMINOPHEN/HYDROCODONE [facility] SEASONAL ALLERGIES [facility] TAPE Active and Recently Outpatient Medications (including Supplies): Issue Date Status Last Fill Pending Outpatient Medications Refills Expiration 1) CETIRIZINE HCL 10MG TAB Qty: 90 Sig: PENDING TAKE ONE TABLET BY MOUTH EVERY MORNING Refills: 0 2) LEVOTHYROXINE NA (SYNTHROID) 100MCG TAB PENDING Qty: 90 Sig: TAKE ONE TABLET BY MOUTH Refills: 0 EVERY DAY 3) LIOTHYRONINE NA 5MCG TAB Qty: 90 Sig: PENDING TAKE ONE TABLET BY MOUTH EVERY MORNING Refills: 0 4) OMEPRAZOLE 20MG EC CAP Qty: 45 Sig: PENDING TAKE ONE CAPSULE BY MOUTH EVERY DAY Refills: 0 NEEDED 5) ONDANSETRON 4MG ORAL DISINTEGRATING TAB PENDING Qty: 20 Sig: DISSOLVE ONE TABLET BY Refills: 0 UNDER THE TONGUE EVERY MORNING NEEDED 6) TAMSULOSIN HCL 0.4MG CAP Qty: 90 Sig: PENDING TAKE ONE CAPSULE BY MOUTH EVERY Refills: 0 MORNING Start Date Active Non-VA Medications Refills Expiration 1) Non-VA MULTIVITAMIN CAP/TAB Si ACTIVE TABLET MOUTH EVERY DAY Start Date Inactive Non-VA Medications Refills Expiration 1) Non-VA LIOTHYRONINE NA 5MCG TAB Sig: DISCONTINUED 5MCG MOUTH EVERY DAY 8 Total Medications Physical Exam: Vitals: BP: 104/70 (06/27/2023 09:55) P: 84 (06/27/2023 09:55) R: 14 (06/27/2023 09:55) T: 97.8 F [36.6 C] (06/27/2023 09:55) WT: 219.8 lb [99.70 kg] (06/27/2023 09:55) BMI: 29.5 Pain: 2 (06/27/2023 09:55) O2 Sat: 95% (06/27/2023 09:55) GENERAL: Alert and oriented x 3, No acute distress, Well-nourished, dressed and groomed HEENT: Normocephalic, atraumatic, ear canals clear, TMs normal, OP clear, neck supple without mass, no adenopathy or thyromegaly LUNGS: Clear to auscultation bilaterally, No accessory muscle use no wheezes, rhonchi or rales CV: RRR without murmur, rub or gallop GI: Abdomen non distended, soft, non-tender, normal bowel sounds in all quadrants, no palpable mass SKIN: Warm and moist, no rash or erythema MSK: No joint swelling, ambulates without difficulty EXTREMITIES: No edema, no swelling NEUROLOGIC: No focal neurological deficits, CN II-XII grossly intact, but not individually tested PSYCHIATRIC: Cooperative, Good eye contact,Appropriate mood and affect Assessment/Plan: Wellness/screening visit completed. Counseling and education provided today includes proper nutrition and health habits, fall prevention, and for those labs and consults ordered today #Annual exam - meds: reviewed, updated and renewed -Ordered routine labs today - the ACTIVE PROBLEM LIST above is considered to be the Past Medical History for the purposes of this note; it was reviewed at the time of this visit and no changes unless otherwise noted above #Health Maintenance/Wellness -Exercise: Daily workout 25-30 min cardio with light weight lifting 5-6x/week -Diet: well balanced -Dental: no concerns -Hearing: no concerns, audiology contact information given -Eye Exam: no concerns, vision clinic contact information given -ASCVD Risk(http://tools.acc.org/ASC ES-Yuch-[email or web address]): Low- Cancer screening: ---> Prostate: PSA ordered today ---> Colon: FIT ordered --->AAA Screening: Not applicable ---->Lung CT -not applicable #Chronic left hip pain- -recommended him to start physical therapy here at the clinic -refused -He would like to put this on hold and just work on his own for his chronic pain , in future if worsening pain then he will reach out to us #Iatrogenic hypothyroidism- -Refilled his levothyroxine 100 mcg daily and liothyronine 5 mcg daily -Metabolic/endocrinology consult placed for LUIS E -TSH, T3-T4 and TSI ordered today #Squamous cell carcinoma of neck- -he would like to have routine surveillance and also with new symptoms of weight loss he would like to follow-up with heme-onc -heme-onc consult placed for LUIS E #Urinary frequency/ BPH - -PSA ordered today -Restarted Flomax 0.4 mg daily, he will monitor for any side effects and if worsening symptoms noted or no improvement noted then he will update us I will follow up with the on labs. If all is well we can see back in a year. [place] understands and agrees to the plan. Follow up as discussed. Sooner if questions or concerns. Disclaimer: This note consists of symbols derived from keyboarding, dictation and/or voice recognition software. As a result, there may be errors in the script that have gone undetected. Please consider this when interpreting information found in this chart. Avg Risk Colorectal Cancer Screen: AVERAGE RISK colorectal cancer screening is due based on information available to this clinical reminder FOBT/FIT (Fecal Immunochemical Testing) has been ordered. See order tab for details. Toxic Exposure Screening Follow-Up: Exposure Concern(s): 06/27/2023 Airborne Hazards/Open Burn Pit - Toxic Exposure Concern Follow-up Question(s): 06/27/2023 Benefits/Claims Questions - Toxic Exposure Concern Health/Medical Questions - Toxic Exposure Concern Registry Questions - Toxic Exposure Concern [facility] Healthcare Enrollment Questions - Toxic Exposure Concern [place]/caregiver has no health or medical concerns related to their concern of environmental exposure. The following connections were provided to the /caregiver: Veterans Benefits Administration (VBA) for Benefits/claims: Textile Worker/Organization (VSO) https://www.macvso.org/find-a -cvso.html /sarwat/ LEIGHANN PATTON DNP, APRN, ARDMS Signed: 06/27/2023 12:01 07/13/2023 ADDENDUM STATUS: COMPLETED Please update below information. -I have ordered CT C/A/P to assess weight loss. Please wait for radiology department to schedule the visit. -Heme-onc department recommended that your surveillance of neck cancer should be managed by ENT at NH since you do not have any evidence of recurrence of the cancer heme-onc does not need to see you. -I have placed ENT consult for establishment of care and follow-up on your swallowing difficulty. /sarwat/ LEIGHANN PATTON DNP,SENIOR INFORMATICA DEVELOPER,REENAS Signed: 07/13/2023 14:13 Receipt Acknowledged By: 07/16/2023 10:30 /sarwat/ DANUTA HUNT LPN 07/16/2023 ADDENDUM STATUS: COMPLETED Spoke to Pt. and gave message, and Pt. understood and ENT has already called and scheduled, Pt.had no futher questions. /sarwat/ DANUTA HUNT LPN Signed: 07/16/2023 10:32 [facility]
--- OUTSIDE RECORDS SUMMARY | 2023-12-16 15:18 | XMS_ITS | Encounter Summary ---
Author Name [facility] [place] [facility] [place] Organization [place] Address [address] [place] [address] Care Team Providers Care Medical/Surgery Registered Nurse Name Role Phone KATELYN PATTON Primary Care Provider Unavailabl e Selected Encounter This section includes the information on record at [place] for the Encounter. Date/Time Encounter Type Encounter Description Reason Pro vider Source Sep 07, 2023 12:14 PM Outpatient Encounter EVENT (HISTORICAL) E Encounter Template Text not used by [place] Plan of Treatment: Future Appointments (+ 6 months) and Future Tests (+/- 45 days) The Plan of Treatment section includes future care activities for the patient from all [place] treatmentfacilities. This section includes future appointments and future orders which are active, pending or scheduled. Future Appointments This section includes appointments that were scheduled to occur 6 months from the date of the Encounter, up to a maximum of 20 appointments. The data comes from all [place] treatment facilities. Appointment Date/Time Appointment Type Appointme nt Facility Name Oct 01, 2023 02:30 PM AMBULATORY - NONE [facility] Oct 01, 2023 03:00 PM AMBULATORY - REHAB MEDICIN E [facility] Oct 26, 2023 05:30 PM AMBULATORY - REHAB MEDICIN E [facility] Nov 26, 2023 02:00 PM AMBULATORY - NONE [facility] Nov 28, 2023 10:30 AM AMBULATORY - REHAB MEDICIN E [facility] Dec 21, 2023 11:30 AM AMBULATORY - REHAB MEDICIN E [facility] Active, Pending, and Scheduled Orders This section includes a listing of several types of active, pending, and scheduled orders, including clinic medications orders, diagnostic test orders, procedure orders and consult orders; where the start date of the order is 45 days before the date of the Encounter or 45 days after the date of theEncounter. The data comes from all [facility]. Test Date/Time Test Type Test Details Facility Name Oct 01, 2023 08:04 PM [facility] Cons Material Flow Analyst's Choice [facility] Social History: Smoking Status (Most current) and Tobacco Use (All prior to encounter date) This section includes the most current, and the historical, smoking and tobacco- related health factors from the [place] facility where the Encounter took place. Current Smoking Status This section includes the most current smoking, or tobacco-related health factor, from the [place] facility where the Encounter took place. Date/Time Current Smoking Status Comment Facil ity Feb 07, 2017 09:25 AM LIFETIME NON-TOBACCO USER [facility] Tobacco Use History This section includes a history of the smoking, or tobacco-related health factors, that were collected on or before the date of the Encounter. The data comes from the [place] facility where the Encounter took place. Date/Time Smoking Status/Tobacco Use Comment F acility Aug 28, 2011 10:21 AM LIFETIME NON-TOBACCO USER [facility] Radiology Reports: +/- 30 days of the encounter Radiology Reports For cases when an order for radiology services may have been completed prior to the date of the Encounter, the report list includes the Radiology Reports that were completed up to 30 days before dateof the Encounter. For cases when an order for radiology services may have been completed after the date of the Encounter, the report list also includes the Radiology Reports that were completed up to30 days after date of the Encounter. The data comes from all [facility] facilities. 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 He is s/p combined modality treatment with cisplatin chemotherapy and radiotherapy between 01/10/2015-02/10/2015. Pt presents for worsening dysphagia over the last year and concern for recurrence. Responsible provider name and phone number to notify for critical findings if other than user placing the order and pager listed below: User placing orders pager: [phone] Staff: Dr. Sammie Topete LAST CREATININE 1.4 H (06/27/23) Report Status: Electronically Filed Date Reported: OCT 01, 2023 Report: Fluoroscopic assistance was provided to the speech pathology department for performance of a fluoroscopic video swallow exam. Please see Speech Pathology progress note in CPRS for report of findings. Impression: Fluoroscopic assistance was provided to the speech pathology department for performance of a fluoroscopic video swallow exam. Please see Speech Pathology progress note in CPRS for report of findings. VERIFIED BY: / *ELECTRONICALLY FILED* [facility]
--- OUTSIDE RECORDS SUMMARY | 2023-12-16 15:18 | XMS_ITS | Encounter Summary ---
Author Name [facility] [place] [place] Organization [facility] [place] Address [address] [place] [address] Care Team Providers Care Performing Arts Technicians Name Role Phone KATELYN PATTON Primary Care Provider Unavailabl e Selected Encounter This section includes the information on record at [place] for the Encounter. Date/Time Encounter Type Encounter Description Reason Pro vider Source Oct 12, 2023 01:36 PM Outpatient Encounter SPEECH-LANGUAGE PATHOLOGY IHE Encounter Template Text not used by [place] Plan of Treatment: Future Appointments (+ 6 months) and Future Tests (+/- 45 days) The Plan of Treatment section includes future care activities for the patient from all [place] treatmentfacilities. This section includes future appointments and future orders which are active, pending or scheduled. Future Appointments This section includes appointments that were scheduled to occur 6 months from the date of the Encounter, up to a maximum of 20 appointments. The data comes from all [place] treatment facilities. Appointment Date/Time Appointment Type Appointme nt Facility Name Oct 26, 2023 05:30 PM AMBULATORY - REHAB MEDICIN E [facility] Nov 26, 2023 02:00 PM [facility] Nov 28, 2023 10:30 AM AMBULATORY - REHAB MEDICIN E [facility] Dec 21, 2023 11:30 AM AMBULATORY - [facility]HAB MEDICIN [facility] Active, Pending, and Scheduled Orders This section includes a listing of several types of active, pending, and scheduled orders, including clinic medications orders, diagnostic test orders, procedure orders and consult orders; where the start date of the order is 45 days before the date of the Encounter or 45 days after the date of theEncounter. The data comes from all [facility]. Test Date/Time Test Type Test Details Facility Name Oct 01, 2023 08:04 PM Consult Order [facility] Erector's Choice [facility] Social History: Smoking Status (Most current) and Tobacco Use (All prior to encounter date) This section includes the most current, and the historical, smoking and tobacco- related health factors from the [facility] where the Encounter took place. Current Smoking Status This section includes the most current smoking, or tobacco-related health factor, from the [place] facility where the Encounter took place. Date/Time Current Smoking Status Comment Facil ity Feb 07, 2017 09:25 AM LIFETIME NON-TOBACCO USER [facility] Tobacco Use History This section includes a history of the smoking, or tobacco-related health factors, that were collected on or before the date of the Encounter. The data comes from the [facility] where the Encounter took place. Date/Time Smoking Status/Tobacco Use Comment F acility Aug 28, 2011 10:21 AM LIFETIME NON-TOBACCO USER [facility] Radiology Reports: +/- 30 days of the [...] the Encounter. The data comes from all [facility]. 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 Sammie Topete LAST CREATININE 1.4 [...] of findings. VERIFIED BY: / *ELECTRONICALLY FILED* [facility] Encounter Notes: All associated encounter notes This section contains the clinical notes associated to the Encounter. Date/Time Encounter Note(s) Provider Source Oct 12, 2023 01:36 PM REPORT OF CONTACT: LOCAL TITLE: APPOINTMENT SCHEDULING NOTE STANDARD TITLE: REPORT OF CONTACT DATE OF NOTE: OCT 12, 2023@13:36 ENTRY DATE: OCT 12, 2023@13:36:10 AUTHOR: MOMO MENCHACA COSIGNER: URGENCY: STATUS: COMPLETED APPOINTMENT SCHEDULING NOTE Has ADDENDA Attempted to schedule Return to clinic (RTC) Contact attempt made to [place] 1st attempt Telephone 2nd attempt Text message 3rd attempt Letter - Sent letter by regular [place] mail to address on file: FOZIA WARE [address] [place] [id number] Left message on voice mail to call back to this number [phone] If [place] calls back, schedule appt for: 10/11/2023 13:35 New Order entered by LILIA LACEY (SPEECH PATHOLOG) Order Text: Return to [facility] MARCELLA RODRIGUES on or around ( Oct 29, 2023 ) for a total of 1 appointment(s) 60 min /sarwat/ MOMO MENCHACA ADVANCED MSA Signed: 10/12/2023 13:36 10/29/2023 ADDENDUM STATUS: COMPLETED Attempted to schedule Return to clinic (RTC) Other: Patient has not responded to scheduling contact attempts for below RTC Order - has failed mandated scheduling effort. RTC Order has been dispositioned. If [place] calls back, schedule appt for: Return to [facility] DISPUTE RESOLUTION SPECIALIST LILIA on or around ( Oct 29, 2023 ) for a total of 1 appointment(s) 60 min /sarwat/ MOO SEXTON ORGANIZATIONAL PSYCHOLOGIST Signed: 10/29/2023 09:55 MOMO MENCHACA [facility]
--- OUTSIDE RECORDS SUMMARY | 2023-12-16 15:18 | XMS_ITS | Encounter Summary ---
Author Name [facility] [place] Organization [facility] [place] Address [address] [place] [address] Care Team Providers Care Edger Machine Helper Name Role Phone KATELYN PATTON Primary Care Provider Unavailabl e Selected Encounter This section includes the information on record at [place] for the Encounter. Date/Time Encounter Type Encounter Description Reason Provider Source Nov 28, 2023 10:30 AM PT EVAL LOW COMPLEX 20 MIN PHYSICAL THERAPY ICD-10-CM G89.29 Other chronic pain NANDINI KEARNS RA [facility] Encounter Template Text not used by [place] Assessments - Encounter Diagnoses This section includes the primary and secondary diagnoses documented for the Encounter. Date/Time Primary/Secondary Diagnosis Diagnosis Name Provider Source Nov 28, 2023 12:08 PM PRIMARY Other chronic pain NANDINI KEARNS RA [facility] Nov 28, 2023 12:08 PM SECONDARY Pain in left shoulder NANDINI KEARNS RA [facility] Nov 28, 2023 12:08 PM SECONDARY Radiculopathy, cervical region NANDINI KEARNS RA [facility] Plan of Treatment: Future Appointments (+ 6 months) and Future Tests (+/- 45 days) The Plan of Treatment section includes future care activities for the patient from all [place] treatmentfacilities. This section includes future appointments and future orders which are active, pending or scheduled. Future Appointments This section includes appointments that were scheduled to occur 6 months from the date of the Encounter, up to a maximum of 20 appointments. The data comes from all [facility]. Appointment Date/Time Appointment Type Appointme nt Facility Name Dec 21, 2023 11:30 AM AMBULATORY - REHAB MEDICIN E [facility] Active, Pending, and Scheduled Orders This section includes a listing of several types of active, pending, and scheduled orders, including clinic medications orders, diagnostic test orders, procedure orders and consult orders; where the start date of the order is 45 days before the date of the Encounter or 45 days after the date of theEncounter. The data comes from all [facility]. Test Date/Time Test Type Test Details Facility Name Dec 21, 2023 12:00 AM Laboratory - Chemi stry Order BASIC METABOLIC PANEL+MG PLASMA [facility] SP ONCE PLATINUM [facility] Dec 21, 2023 12:00 AM Laboratory - Chemi stry Order AST/SGOT PLASMA [facility] SP PLATINUM [facility] Social History: Smoking Status (Most current) and Tobacco Use (All prior to encounter date) This section includes the most current, and the historical, smoking and tobacco- related health factors from the [place] facility where the Encounter took place. Current Smoking Status This section includes the most current smoking, or tobacco-related health factor, from the [place] facility where the Encounter took place. Date/Time Current Smoking Status Comment Facil ity Feb 07, 2017 09:25 AM LIFETIME NON-TOBACCO USER [facility] Tobacco Use History This section includes a history of the smoking, or tobacco-related health factors, that were collected on or before the date of the Encounter. The data comes from the [place] facility where the Encounter took place. Date/Time Smoking Status/Tobacco Use Comment F acility Aug 28, 2011 10:21 AM LIFETIME NON-TOBACCO USER [facility] Encounter Notes: All associated encounter notes This section contains the clinical notes associated to the Encounter. Date/Time Encounter Note(s) Provider Source Nov 28, 2023 07:15 AM PHYSICAL THERAPY INITIAL EVALUATION NOTE: LOCAL TITLE: PT-EVALUATION NOTE STANDARD TITLE: PHYSICAL THERAPY INITIAL EVALUATION NOTE DATE OF NOTE: NOV 28, 2023@07:15 ENTRY DATE: NOV 28, 2023@07:16:24 AUTHOR: ADRI KEARNS EXP COSIGNER: URGENCY: STATUS: COMPLETED PT tx: Low Eval x32', Therapeutic Exercise x13' PT dx: Left Shoulder Pain Evaluation Date: Nov # of VISITS: 1 # of CX/NS: 0 Harris Screen Due: NO Name Used: Informed verbal consent received for physical therapy evaluation and treatment. SUBJECTIVE: Chief Concern: Pt is a 63 year old who presents to PT for left shoulder pain. It's been hurting for quite some time, states he was originally diagnosed with bursitis. But he doesn't think it sounds totally like bursitis. At one point about two years ago, it was really stiff, although was told it wasn't frozen shoulder be an ortho doc. Still been painful, some things that make it worse. Stretches from the orthopod helped with the stiffness, but not the pain. 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 He can get numb in his hand when his arm is out to the side for 1.5hrs plus. Pain: Location/Description: left lateral shoulder, deep in the joint Intensity: -at worst: 3/10 -at best: 0/10 -currently: 0/10 Aggravating Factors: reaching up and out to the side, odd position Relieving Factors: being at rest Previous intervention: stretches and exercises with orthopod and lead trainer Social History/Health Habits: -Exercise: goes to gym 6 times week; lifting and some cardio --Red Flags-- Personal history of cancer: Squamous cell carcinoma Progressive UE or LE weakness: denies Unexplained weight loss: denies Loss of bowel/bladder control: denies Recent fevers, chills, infections: denies Relevant PMH/personal factors impacting rehab: Squamous cell carcinoma of head and neck - 04/10/2022- EGD and biopsy done- result- gastric mucosa with reactive gastropathy and focal intestinal metaplasia Cervicalgia Adjustment disorder with depressed mood Family social history - 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 [employer] - right hip replacement- 2021 - tonsilectomy- 2020 History of right hip replacement Patient's Goal: see goal section below RELEVANT IMAGING: None found in CPRS OBJECTIVE: VITALS: Blood Pressure: 153/95 mmHg Heart Rate: 74 bpm O2 Sats: 99 % OBSERVATION/POSTURE: Forward head / Decreased Thoracic Kyphosis and lumbar lordosis with dowager's hump CERVICAL SCREEN: WNL all motions with exception of mild limits to B rotation with left shoulder pain during right rotation, B side-bending SHOULDER AROM: *indicates pain -Flexion(180): ---Right: 163 ---Left: 156 * -Abduction(180): ---Right: 160 ---Left: 148 * -Ext Rotation(90): ---Right: 54 ---Left: 50 * -Int Rotation(70): ---Right: T8 ---Left: T 10 SHOULDER STRENGTH/MMT: (* indicates pain) Flexion: ---Right: 5/5 ---Left: 5/5 Abduction: ---Right: 5/5 ---Left: 5/5 External Rotation: ---Right: 5/5 ---Left: 5/5 Internal Rotation: ---Right: 5/5 ---Left: 5/5 Adduction: ---Right: 5/5 ---Left: 4/5 ELBOW STRENGTH/MMT: Flexion: ---Right: 5/5 ---Left: 5/5 Extension: ---Right: 5/5 ---Left: 5/5 PALPATION: left > right tenderness to subscapularis and supraspinatus tendons SPECIAL TESTS: Impingement Pathologies Painful Arc: (+) L (-) R Terry-Goyo test: (+) L (-) R Neer's Sign: (+) L (-) R THORACIC SEGMENTAL MOBILITY: Hypomobility throughout cervical and upper thoracic spine to SP NEURO SCREEN: Sensation: intact to light touch throughout B unless noted below Deep Tendon Reflexes:(0:absent,1:diminis hed,2:normal,3:exaggerated,4 :brisk/clonus) C5/Brachioradialis: 0 MALVIN C6/Biceps: 0 MALVIN C7/Triceps: 0 MALVIN Pathological Reflexes: Hoffmans: normal/absent B Myotomes: (* indicates pain) C1(neck flex): 5/5 C2(neck ext): /5 C3(neck SB): Right: 5/5 Left: 5/5 (neck rotation): Right: 5/5 Left: 5/5 SPECIAL TESTS: Compression Tests: Straight Compression: (-) Upper Quadrant (Ext/Rot/SB): L - pain with getting into position, but no change with added compression Distraction Test: (-) _ PT INTERVENTIONS: risks/benefits reviewed and verbal consent obtained for interventions THERAPEUTIC EXERCISE: -Seated cervical retraction/chin tuck: 5 sec x 10 reps -Shoulder flexion in standing: x 20 reps -Shoulder scaption in standing: x 20 reps -Supine serratus punch-plus: x 20 reps -Hook-lying shoulder flexion with wand for thoracic extension: x 20 rep -Side-lying shoulder ER: x 20 reps on L HOME PROGRAM: Access Code: [email or web address] URL: [email or web address] Date: 11/28/2023 Prepared by: Adri Exercises - Sidelying Shoulder External Rotation - 1-2 x daily - 7 x weekly - 1-2 sets - 20 reps - Standing Shoulder Scaption - 1-2 x daily - 7 x weekly - 1-2 sets - 20 reps - Standing Shoulder Flexion to 90 Degrees - 1-2 x daily - 7 x weekly - 1-2 sets - 20 reps - Supine Bilateral Shoulder Protraction - 1-2 x daily - 7 x weekly - 1-2 sets - 20 reps - Supine Shoulder Flexion with Dowel for Thoracic Extension Stretch - 1-2 x daily - 7 x weekly - 1-2 sets - 20 reps - Seated Cervical Retraction - 1 x daily - 7 x weekly - 1-2 sets - 10 reps - 5 hold GOALS: additional goals to be established next session 1. PATIENT GOAL: To be able to hold his arm in positions out from the body for at least 30+ minutes without increase in pain to rest comfortably by end of day in 6-8 visits. 2. Pt will demonstrate improved function as evident by increase in Promis 6b total score for shoulder by 4 points in 6-8 sessions. 3. Pt will demonstrate improved AROM in shoulder elevation to at least ___ degrees on involved side for ability to perform overhead ADLs (reaching into high cupboard) in 4-6 visits. 4. Pt will sleep undisturbed by shoulder pain in 6-8 weeks to improve restorative sleep pattern. 5. Pt will demonstrate at least 60 deg ER AAROM to improve functional mobility for ADLs (reaching behind head/washing hair)in 4-6 visits. 6. Pt will demonstrate IR AAROM to at least L5 to improve functional mobility for ADLs (reaching into back pocket, tucking in shirt)in 6-8 visits. 7. Patient will demonstrate at least 3+/5 B periscapular strength to assist with postural control required for improved tolerance to ADLs such as cooking and cleaning in 6-8 visits. ASSESSMENT: is a 63 year old with signs and symptoms consistent with left subacromial pain syndrome and possible left UE cervical radiculopathy. Impairments noted in AROM, positive impingement signs, and strength impacting 's ability to perform ADLs and work activity. No contraindications to ongoing PT to assist with 's return to prior level of activity. Response to Treatment: correct return demo of exercises without c/o increased pain, written handout provided PLAN: Continue PT x 6-8 sessions, 1 x/wk to every other week for therapeutic exercise, therapeutic activity, manual therapy prn and patient education. agreeable to follow up in 1-3 weeks. NEXT SESSION: -Consider manual therapy. -Progress home program for scapular stability and rotator cuff strengthening. -Check ULTT Patient Education on Treatment Plan: PT role, POC, rehab expectations. Patient indicated readiness to learn, verbalizes understanding, agreement and satisfaction with the treatment plan. Denies further questions. REHAB POTENTIAL: guarded per chronicity CLINICAL PRESENTATION: stable OUTCOME MEASURE Baseline PROMIS Pain Interference 6b PROMIS Pain Interference - short form 6b In the past 7 days... How much did pain interfere with your enjoyment of life? A little bit (2) How much did pain interfere with your ability to concentrate? Not at all (1) How much did pain interfere with your day to day activities? Not at all (1) How much did pain interfere with your enjoyment of recreational activities? A little bit (2) How much did pain interfere with doing your tasks away from home (e.g., getting groceries, running errands)? Not at all (1) How often did pain keep you from socializing with others? Never (1) RAW SCORE CONVERSION TO T-SCORE: T-Score value indicates how score relates to normative samples (a standardized score with a mean of 50 and a standard deviation (SD) of 10). T-Scores >=60 indicate patient is outside the normal range, being 1+ SD worse than average. RAW T-SCORE 8 50.Ashish /sarwat/ Adri Kearns PT, DPT, GCS Signed: 11/28/2023 12:[address] [facility]
--- OUTSIDE RECORDS SUMMARY | 2023-12-16 15:18 | XMS_ITS | Encounter Summary ---
Author Name [facility] [place] [facility] [place] Address [address] [place] [id number] Care Team Providers Care Slurry Control Tender Name Role Phone KATELYN PATTON Primary Care Provider Unavailabl e Selected Encounter This section includes the information on record at [place] for the Encounter. Date/Time Encounter Type Encounter Description Reason Provider Source June 27, 2023 04:46 PM Outpatient Encounter HEMATOLOGY ICD-10-CM C76.0 Malignant neoplasm of head, face and neck [facility] Encounter Template Text not used by [place] Assessments - Encounter Diagnoses This section includes the primary and secondary diagnoses documented for the Encounter. Date/Time Primary/Secondary Diagnosis Diagnosis Name Provider Source June 27, 2023 05:27 PM PRIMARY Malignant neoplasm of head, face and neck [facility] Plan of Treatment: Future Appointments (+ 6 months) and Future Tests (+/- 45 days) The Plan of Treatment section includes future care activities for the patient from all [place] treatmentfacilities. This section includes future appointments and future orders which are active, pending or scheduled. Future Appointments This section includes appointments that were scheduled to occur 6 months from the date of the Encounter, up to a maximum of 20 appointments. The data comes from all [place] treatment facilities. Appointment Date/Time Appointment Type Appointme nt Facility Name Jul 24, 2023 08:30 AM [facility] Aug 15, 2023 09:00 AM AMBULATORY - SURGERY [facility] Sep 03, 2023 09:00 AM AMBULATORY - MEDICINE [facility] Oct 01, 2023 02:30 PM [facility] Oct 01, 2023 03:00 PM AMBULATORY - REHAB MEDICIN [facility] Oct 26, 2023 05:30 PM AMBULATORY - REHAB MEDICIN E [facility] Nov 26, 2023 02:00 PM AMBULATORY - NONE [facility] Nov 28, 2023 10:30 AM AMBULATORY - REHAB MEDICIN E [facility] Dec 21, 2023 11:30 AM AMBULATORY - REHAB MEDICIN E [facility] Active, Pending, and Scheduled Orders This section includes a listing of several types of active, pending, and scheduled orders, including clinic medications orders, diagnostic test orders, procedure orders and consult orders; where the start date of the order is 45 days before the date of the Encounter or 45 days after the date of theEncounter. The data comes from all [place] treatment facilities. Test Date/Time Test Type Test Details Facility Name June 27, 2023 12:00 AM Laboratory - Chemi stry Order OCCULT BLOOD FIT X1 SCREEN STOOL FECES SP ONCE [facility] Lab Results: +/- 30 days of the encounter This section includes the Chemistry and Hematology Lab Results on record with [place] for the patient. Radiology Reports and Pathology Reports are provided separately, in subsequent sections. Lab Results This section contains the Chemistry/Hematology Results that were resulted 30 days before or 30 daysafter the date of the Encounter. Date/Time Source Result Type Result - Unit Interpretation Reference Range Comment June 27, 2023 11:54 AM [facility] THYROID STIMULATING IMMUNOGLOBULIN Specimen Type: [...] of this assay have been determined by [facility] [place], [place]. The modifications have not been cleared or approved by the FDA. This assay has been validated pursuant to the CLIA regulations and is used for clinical purposes. Test Performed by [facility], [facility], [address] [place] [address] Michael Jimenez M.D., Ph.D., Director of Laboratories , CLIA [id number] Ordering Provider: KATELYN PATTON Report Released Date/Time: June 27, 2023 11:49 AM Reporting Lab: [facility] [id number] Performing Lab: [address] THYROID STIMULATING IMMUNOGLOBULIN <89 SEE BELOW June 27, 2023 11:54 AM [facility] TOTAL T3 Specimen Type: SERUM No comment entered. Ordering Provider: KATELYN PATTON Report Released Date/Time: June 27, 2023 11:49 AM Reporting Lab: [facility] [id number] Performing Lab: [facility] [id number] TOTAL T3 79 ng/dL 35-193 June 27, 2023 11:02 AM [facility] PSA Specimen Type: SERUM No comment entered. Ordering Provider: KATELYN PATTON Report Released Date/Time: June 27, 2023 10:36 AM Reporting Lab: [facility] [id number] Performing Lab: [facility] [id number] PSA 2.07 ng/mL <4.00 June 27, 2023 11:02 AM [facility] HEMOGLOBIN A1C Specimen Type: BLOOD Comment: Values obtained from A1C measurements can vary. For typical A1C assays, a reported value of 7.0 could actually be between 6.7 and 7.3 if measured by a reference method. A reported value of 9.0 could actually be between 8.7 and 9.3. Ref: http://www.ngsp. org/CAPdata.asp Ordering Provider: KATELYN PATTON Report Released Date/Time: June 27, 2023 10:36 AM Reporting Lab: [facility] [id number] Performing Lab: [facility] [id number] HEMOGLOBIN A1C 5.2 4.0-6.0 June 27, 2023 11:02 AM [facility] LIPID PANEL,NON-FASTING Specimen Type: PLASMA No comment entered. Ordering Provider: KATELYN PATTON Report Released Date/Time: June 27, 2023 10:36 AM Reporting Lab: [facility] [id number] Performing Lab: [facility] [id number] CHOLESTEROL 169 mg/dL <199 .HDL 57 mg/dL >40 LDL CALCULATION 102 mg/dL H <99 VLDL CALCULATION 10 mg/dL <29 NON HDL CHOLESTEROL 112 mg/dL <129 TRIG(NON FASTING) 50 mg/dL <149 June 27, 2023 11:02 AM [facility] COMPREHENSIVE METABOLIC PANEL+MG Specimen Type: PLASMA No comment entered. Ordering Provider: KATELYN PATTON Report Released Date/Time: June 27, 2023 10:36 AM Reporting Lab: [facility] [phone] Performing Lab: [facility] [id number] CREATININE 1.4 mg/dL H 0.7-1.2 UREA NITROGEN [...] L >60 June 27, 2023 11:02 AM [facility] TSH W/REFLEX TO FREE T4 Specimen Type: PLASMA No comment entered. Ordering Provider: KATELYN PATTON Report Released Date/Time: June 27, 2023 10:36 AM Reporting Lab: [facility] [id number] Performing Lab: [facility] [id number] TSH 0.95 u[IU]/mL 0.35-4.94 FREE T4 1.11 ng/dL 0.70-1.48 June 27, 2023 11:02 AM [facility] FREE-T4 Specimen Type: PLASMA No comment entered. Ordering Provider: KATELYN PATTON Report Released Date/Time: June 27, 2023 10:36 AM Reporting Lab: [facility] [id number] Performing Lab: [facility] [id number] FREE T4 1.11 ng/dL 0.70-1.48 June 27, 2023 11:02 AM [facility] CBC Specimen Type: BLOOD No comment entered. Ordering Provider: KATELYN PATTON Report Released Date/Time: June 27, 2023 10:36 AM Reporting Lab: [facility] [phone] Performing Lab: [facility] [phone] WBC 5.24 10*3/uL 4.0-11.0 RBC 4.76 10*6/uL 4.6-6.2 HGB 14.6 g/dL 13.5-17.9 HCT 43.7 41-54 MCV 91.8 fL 80-100 MCH 30.7 pg 27-33 MCHC 33.4 g/dL 32.0-37.5 PLT 233 10*3/uL 150-400 MPV 10.6 fL H 7.4-10.4 RDW 12.5 11.5-14.5 Social History: Smoking Status (Most current) and Tobacco Use (All prior to encounter date) This section includes the most current, and the historical, smoking and tobacco- related health factors from the [place] facility where the Encounter took place. Current Smoking Status This section includes the most current smoking, or tobacco-related health factor, from the [place] facility where the Encounter took place. Date/Time Current Smoking Status Comment Michelle ity Feb 07, 2017 09:25 AM LIFETIME NON-TOBACCO USER [facility] Tobacco Use History This section includes a history of the smoking, or tobacco-related health factors, that were collected on or before the date of the Encounter. The data comes from the [place] facility where the Encounter took place. Date/Time Smoking Status/Tobacco Use Comment F acility Aug 28, 2011 10:21 AM LIFETIME NON-TOBACCO USER [facility] Encounter Notes: All associated encounter notes This section contains the clinical notes associated to the Encounter. 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 He is s/p combined modality treatment with cisplatin chemotherapy and radiotherapy between 01/10/2015-02/10/2015. His Treatment was complicated by pneumonia. He has been on surveillance since completion of treatment without evidence of disease recurrence. He is now 8.5yrs post treatment. He has been following with Hem/Onc at the [facility] annually and was last seen 03/09/21. CT done at that time showed no evidence of local recurrence or metastatic disease. Apparently now with dysphagia and wt loss of unclear etiology. Patient does have a history of duodenitis noted on EGD in 05/2020. His other PMH includes hypothyroidism and BPH. 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 He has not had any evidence of disease recurrence. Now with dysphagia and wt loss of unclear etiology. RECOMMENDATIONS: - Please refer patient to GI for evaluation of dysphagia with ongoing wt loss. - Since patient is >5yrs post treatment for localized Head and Neck cancer and has no evidence of recurrence or metastatic disease, he does not need f/u thru oncology. - Localized head and neck cancer is managed thru ENT. If there is concern for local disease recurrence, please consult ENT for further evaluation. - Please consider CT C/A/P to assess wt loss - If patient has evidence of metastatic malignancy, please reconsult Hem/Onc Thank you for this consult. 30 mins spent of this consult /es/ ALLAN WALLER PHYSICIAN MANAGER [employer] Signed: 06/27/2023 17:[address] [facility]
--- OUTSIDE RECORDS SUMMARY | 2023-12-16 15:18 | XMS_ITS | Encounter Summary ---
Author Name [facility] [place] [facility] [place] Organization [facility] [place] Address [address] [place] [address] Care Team Providers Care Jowl Trimmer Name Role Phone KATELYN PATTON Primary Care Provider Unavailabl e Selected Encounter This section includes the information on record at [place] for the Encounter. Date/Time Encounter Type Encounter Description Reason Provider Source Oct 01, 2023 03:00 PM ORAL FUNCTION THERAPY SPEECH-LANGUAGE PATHOLOGY ICD-10-CM C76.0 Malignant neoplasm of head, face and neck JUMA LACEY [facility] Encounter Template Text not used by [place] Assessments - Encounter Diagnoses This section includes the primary and secondary diagnoses documented for the Encounter. Date/Time Primary/Secondary Diagnosis Diagnosis Name Provider Source Oct 04, 2023 02:53 PM PRIMARY Malignant neoplasm of head, face and neck GIANNI LACEY [facility] Oct 04, 2023 02:53 PM SECONDARY Dysphagia, oropharyngeal phase GIANNI LACEY [facility] Plan of Treatment: Future Appointments (+ [...] 20 appointments. [facility]. Appointment Date/Time Appointment Type Appointme nt Facility Name Oct 26, 2023 05:30 PM AMBULATORY - REHAB MEDICIN E [facility] Nov 26, 2023 02:00 PM AM[facility]UL[facility]ORY - NONE [facility] Nov 28, 2023 10:30 AM AMBULATORY - REHAB MEDICIN E [facility] Dec 21, 2023 11:30 AM AMBULATORY - REHAB MEDICIN E [facility] Active, Pending, and Scheduled Orders This section includes a listing of several types of active, pending, and scheduled orders, including clinic medications orders, diagnostic test orders, procedure orders and consult orders; where the start date of the order is 45 days before the date of the Encounter or 45 days after the date of theEncounter. The data comes from all [facility]. Test Date/Time Test Type Test Details Facility Name Oct 01, 2023 08:04 PM Consult [facility] Cons Committee Member's Choice [facility] Social History: Smoking Status (Most current) and [...] place. Date/Time Current Smoking Status Comment Facil [place] Feb 07, 2017 09:25 AM LIFETIME NON-TOBACCO USER [facility] Tobacco Use History This section includes a history of the smoking, or tobacco-related health factors, that were collected on or before the date of the Encounter. The data comes from the [place] facility where the Encounter took place. Date/Time Smoking Status/Tobacco Use Comment F acility Aug 28, 2011 10:21 AM LIFETIME NON-TOBACCO USER [facility] Radiology Reports: +/- 30 days of the [...] the Encounter. The data comes from all [facility]. Date/Time Radiology Report Provider Source Oct 01, 2023 02:25 PM ESOPHAGRAM JN VEGA: FOZIA [id number] [id number] M Exm Date: OCT 01, 2023@14:25 Req Phys: KRISSY MOSLEY Loc: [facility] ENT HEAD & NECK GLORIA (R Img Loc: MAIN X-RAY Service: Unknown (Case [id number] COMPLETE) ESOPHAGRAM VIDEO SWALLOW (RAD Detailed) CPT:34010 Contrast Media : Barium CPT Modifiers : TC TECHNICAL COMPONENT Reason for Study: Dysphagia secondary to CABLE SPLICING TECHNICIAN Clinical History: IS NOT under investigation for [...] pager listed below: User placing orders pager: [phone] Staff: Dr. Sammie Topete LAST CREATININE 1.4 [...] of findings. VERIFIED BY: / *ELECTRONICALLY FILED* [facility] Encounter Notes: All associated encounter notes This section contains the clinical notes associated to the Encounter. Date/Time Encounter Note(s) Provider Source Oct 01, 2023 03:00 PM SPEECH PATHOLOGY CONSULT: LOCAL TITLE: SPEECH PATHOLOGY CONSULT STANDARD TITLE: SPEECH PATHOLOGY CONSULT DATE OF NOTE: OCT 01, 2023@15:00 ENTRY DATE: OCT 04, 2023@14:53:35 AUTHOR: LILIA LACEY COSIGNER: URGENCY: STATUS: COMPLETED Speech-Language Pathology Modified Barium Swallow Study ----- Modified barium swallow: 30 min. Swallow therapy/education: 30 min. Medical Dx: dysphagia, s/p CABLE SPLICING TECHNICIAN (2014) for prior SCC with unknown primary, Treatment Dx: Oropharyngeal dysphagia Preferred name: Fozia History: Mr. 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 Imaging at that time revealed a mass including the left BOT, left tonsillar pillar, and left retrotigone area extending superiorly into the nasopharynx. He was referred to speech pathology d/t complains of worsening dysphagia over the last year. reports he chokes every meal and feels food getting stuck in his throat. shared an extended coughing fit while on a cruise 6 months ago was the catalyst to ask for an evaluation. [place] seen by ENT on 08/16/23 which noted evaluation negative for evidence of recurrence. [place] reports textures such as hamburger, rice, and dry chips are more difficult. Foods such as soft pasta, rare steak, larger pieces of food are easier to swallow. Uses water to wash the food down. Active problems - Computerized Problem List is the source for the followin. Squamous cell carcinoma of head and neck - 04/10/2022- EGD and biopsy done- result- gastric mucosa with reactive gastropathy and focal intestinal metaplasia 2. Iatrogenic hypothyroidism 3. Cervicalgia 4. Adjustment disorder with depressed mood 5. 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 Mallet finger - Mallet finger of right hand 7. History of right hip replacement 8. Hypothyroidism 9. Gastroesophageal reflux disease A modified barium swallow (MBS) study was conducted to evaluate oropharyngeal function and to determine appropriate consistencies, positioning, and swallowing techniques. Objective: ORAL MOTOR EXAMINATION: - Appearance of oral cavity: own dentition; tissues clean appearing, pink, moist - Oral structures have adequate strength, range, and motility for both speech and swallowing. THE M.D. DELMAR DYSPHAGIA INVENTORY (MDADI): A questionnaire regarding an individual's functional, physical, and emotional impressions of their dysphagia. Responses include: Strongly agree, agree, no opinion, disagree, and strongly disagree. Individual questions are rated on a 1- 5 scale. A higher composite MDADI score represents better day-to-day functioning and better quality of life. Global Score: 4 - high functioning (My swallowing ability limits my day to day activities.) Composite Score: 51 (Note: 20 - extremely low functioning; 100 - high functioning) EATING ASSESSMENT TOOL (EAT-10): The EAT-10 is a self-administered symptom-specific outcome instrument for dysphagia. The patient completed the EAT-10 today with the following results (0 = No problem, 4 = Severe problem): To what extent are the following scenarios problematic for you? 1. My swallowing problem has caused me to lose weight. 1 2. My swallowing problem interferes with my ability to go out for meals. 2 3. Swallowing liquids takes extra effort. 0 4. Swallowing solids takes extra effort. 4 5. Swallowing pills takes extra effort. 4 6. Swallowing is painful. 0 7. The pleasure of eating is affected by my swallowing. 4 8. When I swallow food sticks in my throat. 3 9. I cough when I eat. 3 10. Swallowing is stressful. 2 Total Score: 23 (scores of or > 3 are considered abnormal) - Positioning: Lateral, Sky-Posterior - Consistencies: IDDSI 0-Thin, Pudding (IDDSI 4-Pureed), Hard Solid (IDDSI 7- Regular), 13mm round Barium tablet - Presentation: Spoon, Cup MODIFIED BARIUM SWALLOW IMPAIRMENT PROFILE SCORES 1. Lip Closure 1=Interlabial escape; no progression to anterior lip 2. Tongue Control During Bolus hold 2=Posterior escape of less than half of bolus 3. Bolus Preparation/Mastication 0=Timely and efficient chewing and mashing 4. Bolus Transport/Lingual Motion 0=Brisk tongue motion 5. Oral Residue 2=Residue collection on oral structures Oral Residue Locations C=Tongue 6. Initiation of Pharyngeal Swallow 3=Bolus head in pyriforms 7. Soft Palate Elevation 0=No bolus between soft palate (SP)/pharyngeal wall (PW) 8. Laryngeal Elevation 1=Partial superior movement of thyroid cartilage/partial approximation of arytenoids to epiglottic petiole 9. Anterior Hyoid Excursion 0=Complete anterior movement 10. Epiglottis Movement 0=Complete inversion 11. Laryngeal Vestibular Closure 1=Incomplete; narrow column air/contrast in laryngeal vestibule 12. Pharyngeal Stripping Wave 0=Present - complete 13. Pharyngeal Contraction 0=Complete 14. Pharyngoesophageal Segment Opening 0=Complete distension and complete duration; no obstruction of flow 15. Tongue Base Retraction 2=Narrow column of contrast or air between TB and PPW 16. Pharyngeal Residue 3=Majority of contrast within or on pharyngeal structures Pharyngeal Residue Locations A=Tongue base B=Valleculae E=Pyriform sinuses 17. Esophageal Clearance Upright Position Could not assess Oral Impairment Score (Components 1-6): 8 Pharyngeal Impairment Score (Components 7-16): 7 Esophageal Impairment Score (Component 17): n/a On the 8-item Penetration-Aspiration Scale, patient scored 1: Contrast does not enter the airway 2: Contrast enters the airway, remains above vocal folds, no residue 3: Contrast remains above vocal folds, visible residue remains 4: Contrast contacts vocal folds, no residue 5: Contrast contacts vocal folds, visual residue remains 6: Contrast passes glottis, no sub-glottic residue visible 7: Contrast passes glottis, visible sub-glottic residue despite pt response 8: Contrast passes glottis, visible sub-glottic residue, absent pt response ; indicates separate trials - indicates subsequent swallows in same trial TC indicates throat clear (spontaneous) LATERAL VIEW: Thin Liquids: Spoon (3cc) PAS: 5 (before swallow); 3 (during) Single sip w/ bolus hold PAS: 3 Single sip w/ no hold PAS: 3 Consec cup sips PAS: 2 Pudding: PAS: 1; 1 Cracker: PAS: 1 Thin Liquid: Single sips by cup PAS: 8 Cracker w/ thin liquid mix PAS: 1 Chopped peaches PAS: 1 Barium tablet w/ thin liq PAS: n/a, hung in valleculae Barium tablet w/ pudding PAS: passes efficiently A-P VIEW: Pudding: PAS: 1 Liquid single sip PAS: 1 Vocal fold movement during phonation: bilateral Bolus flow: grossly symmetrical transit down the pharynx. - Laryngeal cough reflex: Absent - Cued throat clear/cough: not effective to clear aspirated material - Cricopharyngeal sphincter: Non-contributory ESOPHAGEAL VIEW: Not completed due to radiology preference IMPRESSIONS: Mr. Ware is a 63 y.o. male with pertinent medical history of p16- SCC with unknown primary s/p left tonsillectomy, and definitive CABLE SPLICING TECHNICIAN completed in 01/2015, who presents with oropharyngeal dysphagia, with mild oral stage impairments and moderate pharyngeal stage impairments (DIGEST score: 2 (S1, E2). PHYSIOLOGIC DEFICITS INCLUDE: Oral phase of the swallow is characterized by reduced bolus control leading to intermittent premature spillage into laryngeal vestibule prior to swallow initiation. Oral residue occurs with pudding and solid textures. Swallow initiation with liquids occurs at the level of the pyriforms. Pharyngeal phase of the swallow is characterized by reduced laryngeal elevation and laryngeal vestibular closure. Deficits result in consistent shallow penetration of thin liquids into the laryngeal vestibule. Premature spillage of the bolus from the oral cavity prior to the swallow (mentioned above) results in deep penetration on one occasion, and silent aspiration on another occasion. Reduced base of tongue retraction most apparent with solid textures and results in an estimated > 75% of the cracker bolus retained in valleculae. spontaneously uses an oral regurgitation and liquid wash to clear solid textures through pharynx. Chopped peaches pass efficiently through the pharynx. Barium tablet with thin liquids is retained in the valleculae, but clears in a teaspoon of pudding efficiently. In A-P view, bolus is grossly symmetrical and bilateral vocal fold movement is noted. STRATEGIES TRIALED: liquid wash to clear solids. Trialed soft/moist solids with efficient clearance. Barium tablet trialed in puree with successful clearance TREATMENT PLANNING: Recommend regular textures with thin liquids with modifications to add moisture where appropriate. Add extra sauces/condiments/gravies to dry textures. Take pill whole in a spoonful of applesauce. seen immediately following for dysphagia intervention and education on results, late radiation associated changes to swallowing, and training on swallowing exercises; discussed plan of care. Trained to bear down, holding breath, prior to swallow to ensure additional valving and airway protection. Patient has the following historical and clinical dysphagia/aspiration risk factors: - GERD - History of radiation therapy Patient has the following protective factors: - involved - no history of pneumonia - ambulatory - cognitively intact - feeds self and able to implement strategies - able to complete excellent oral cares (To view recorded images of the MBS see PACS viewer.) FUNCTIONAL ORAL INTAKE SCALE (FOIS): ------- The FOIS is a measure of swallow function that identifies a patient's current method and/or modifications for intake of daily nutrition. Tube Dependent (Levels 1-3) -No oral intake (1) -Tube dependent with minimal/inconsistent oral intake (2) -Tube supplements with consistent oral intake (3) Total Oral Intake (Levels 4-7) -Total oral intake of a single consistency (4) -Total oral intake of multiple consistencies requiring special preparation (5) -Total oral intake with no special preparation, but must avoid specific foods or liquid items (6) -Total oral intake with no restrictions (7) Patient score: 6 The Dynamic Imaging Grade of Swallowing Toxicity (DIGEST) -- (Henrique et al.,2017) A summary DIGEST rating provides a toxicity grade of pharyngeal swallowing dysfunction as derived from an instrumental swallowing study. The toxicity grade is based on component scores of swallowing safety (i.e., penetration/aspiration) and efficiency (i.e., residue); these scores increase with worsening severity of pharyngeal dysphagia (0=no pharyngeal dysphagia, 1 = mild, 2 = moderate, 3 = severe, and 4 = life threating). Safety score: 1 Efficiency score: 2 DIGEST score: 2 --- SWALLOW THERAPY/EDUCATION: was seen immediately following exam for 30 minutes to provide the following education/training: - results of exam with use of diagram and replay of MBSS recording - basic swallowing anatomy/physiology - late radiation changes to swallow function - written summary of diet recommendations and aspiration precautions - recommendations for appropriate intervention - training provided on: swallowing exercises INTERDISCIPLINARY CARE: Following the completion of exam SERVICE OBSERVER CHIEF notified MD/RN/RD via text/page/phone call of the results and diet recommendations of exam. RECOMMENDATIONS: 1. Diet: - Solids: Regular textures, extra moisture (sauces/gravies/condiments) - Liquids: Thin liquids - Administering medications: whole in puree 2. Aspiration precautions: - Position upright (90 degrees), in a chair if possible - add moisture to dry foods - hold breath + swallow hard. - Swallow twice, if needed, for each bite of food. - Alternate swallows of solids and liquids. 5. Routine oral hygiene: - Use a toothbrush and toothpaste to brush teeth, gums, tongue and roof of mouth 3x daily. Use mouthwash after meals. 6. PLAN: Follow-up: 3-4 weeks - Initiate swallowing exercises - breath hold + swallow hard + exhale - train additional modifications to dry foods as needed GOALS: ------ Patient goals: to not cough/choke on foods Long-term goals: 1. Patient will maintain nutrition and hydration on the least restrictive diet without adverse respiratory, or medical events. Short-term goals: 1. Patient will tolerate recommended diet without reports of coughing episodes with recommended diet. 2. Patient will follow compensatory techniques (adding moisture, pills whole in puree, hold breath prior to swallow) during meals without cueing. 3. Patient will demonstrate correct completion of pharyngeal swallowing exercises. --- Please don't hesitate to contact me at [phone] with any questions. Thank you for involving SERVICE OBSERVER CHIEF in this patient's care. /sarwat/ LILIA LACEY MA, [facility]-SERVICE OBSERVER CHIEF SPEECH LANGUAGE PATHOLOGIST Signed: 10/11/2023 13:33 LILIA LACEY [facility]
--- OUTSIDE RECORDS SUMMARY | 2023-12-16 15:18 | XMS_ITS | Encounter Summary ---
Author Name [facility] [place] Organization [place] Address [address] [place] [address] Care Team Providers Care Insurance Follow Up Representative Name Role Phone KATELYN PATTON Primary Care Provider Unavailabl e Selected Encounter This section includes the information on record at [place] for the Encounter. Date/Time Encounter Type Encounter Description Reason Pro vider Source Oct 01, 2023 02:15 PM Outpatient Encounter [facility] Encounter Template Text not used by CT Plan of Treatment: Future Appointments (+ 6 months) and Future Tests (+/- 45 days) The Plan of Treatment section includes future care activities for the patient from all [place] treatmentfacilities. This section includes future appointments and future orders which are active, pending or scheduled. Future Appointments This section includes appointments that were scheduled to occur 6 months from the date of the Encounter, up to a maximum of 20 appointments. The data comes from all [place] treatment facilities. Appointment Date/Time Appointment Type Appointme nt Facility Name Oct 26, 2023 05:30 PM AMBULATORY - REHAB MEDICIN E [facility] Nov 26, 2023 02:00 PM [facility] Nov 28, 2023 10:30 AM AMBULATORY - REHAB MEDICIN E [facility] Dec 21, 2023 11:30 AM AMBULATORY - RE[facility]AB MEDICIN [facility] Active, Pending, and Scheduled Orders This section includes a listing of several types of active, pending, and scheduled orders, including clinic medications orders, diagnostic test orders, procedure orders and consult orders; where the start date of the order is 45 days before the date of the Encounter or 45 days after the date of theEncounter. The data comes from all [facility]. Test Date/Time Test Type Test Details Facility Name Oct 01, 2023 08:04 PM Consult Order [facility] Kettle Worker's Choice [facility] Social History: Smoking Status (Most current) and Tobacco Use (All prior to encounter date) This section includes the most current, and the historical, smoking and tobacco- related health factors from the [facility] where the Encounter took place. Current Smoking Status This section includes the most current smoking, or tobacco-related health factor, from the [place] facility where the Encounter took place. Date/Time Current Smoking Status Comment Facil ity Feb 07, 2017 09:25 AM LIFETIME NON-TOBACCO USER [facility] Tobacco Use History This section includes a history of the smoking, or tobacco-related health factors, that were collected on or before the date of the Encounter. The data comes from the [place] facility where the Encounter took place. Date/Time Smoking Status/Tobacco Use Comment F acility Aug 28, 2011 10:21 AM LIFETIME NON-TOBACCO USER [facility] Radiology Reports: +/- 30 days of [...] the Encounter. The data comes from all [facility]. 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 Sammie Topete LAST CREATININE 1.4 [...] of findings. VERIFIED BY: / *ELECTRONICALLY FILED* [facility] Encounter Notes: All associated encounter notes This section contains the clinical notes associated to the Encounter. Date/Time Encounter Note(s) Provider Source Oct 01, 2023 02:15 PM NONVA NOTE: LOCAL TITLE: COMMUNITY CARE-REQUEST FOR SERVICE NOTE STANDARD TITLE: NONVA NOTE DATE OF NOTE: OCT 01, 2023@14:15 ENTRY DATE: OCT 01, 2023@14:15:53 AUTHOR: LORELEI ESTEVEZ EXP COSIGNER: URGENCY: STATUS: COMPLETED RFS was received from [facility] requesting new authorization for continuation of care. Provider, Elenita Naqvi Most recent referral expires/d on 2023-11-03 AYANNA for new consult to start after this date 2023-11-03 Please see RFS and notes uploaded to - [facility] Consult # [id number] RFS and records uploaded to [facility] note dated 09/24/23 Place new consult if clinically indicated, thank you. /sarwat/ Lorelei Estevez, MSN, RN RN Fishing Vessel Mate Signed: 10/01/2023 14:25 Receipt Acknowledged By: 10/01/2023 20:06 /es/ MICHAEL PAINTING, VEST BASTER VEST BASTER, CBOC AIR TWISTER WINDER, PROGRESSIVE CARE UNIT REGISTERED NURSE LORELEI ESTEVEZ [facility]
--- OUTSIDE RECORDS SUMMARY | 2023-12-16 15:18 | XMS_ITS | Encounter Summary ---
Author Name [facility] [place] Organization [facility] [place] [place] Address [address] [place] [address] Care Team Providers Care Loader Operator Supervisor Name Role Phone KATELYN PATTON Primary Care Provider Unavailabl e Selected Encounter This section includes the information on record at [place] for the Encounter. Date/Time Encounter Type Encounter Description Reason Pro vider Source Oct 01, 2023 02:15 PM Outpatient Encounter EVENT (HISTORICAL) E Encounter Template Text not used by [place] Plan of Treatment: Future Appointments (+ 6 months) and Future Tests (+/- 45 days) The Plan of Treatment section includes future care activities for the patient from all [place] treatmentfacilities. This section includes future appointments and future orders which are active, pending or scheduled. Future Appointments This section includes appointments that were scheduled to occur 6 months from the date of the Encounter, up to a maximum of 20 appointments. The data comes from all [place] treatment facilities. Appointment Date/Time Appointment Type Appointme nt Facility Name Oct 26, 2023 05:30 PM AMBULATORY - [facility]AB [facility] Nov 26, 2023 02:00 PM [facility] Nov 28, 2023 10:30 AM AMBULATORY - REHAB MEDICIN E [facility] Dec 21, 2023 11:30 AM AMBULATORY - REHAB MEDICIN E [facility] Active, Pending, and Scheduled Orders This section includes a listing of several types of active, pending, and scheduled orders, including clinic medications orders, diagnostic test orders, procedure orders and consult orders; where the start date of the order is 45 days before the date of the Encounter or 45 days after the date of theEncounter. The data comes from all [facility]. Test Date/Time Test Type Test Details Facility Name Oct 01, 2023 08:04 PM Consult Order [facility] Social History: Smoking Status (Most current) and Tobacco Use (All prior to encounter date) This section includes the most current, and the historical, smoking and tobacco- related health factors from the [facility] where the Encounter took place. Current Smoking Status This section includes the most current smoking, or tobacco-related health factor, from the [place] facility where the Encounter took place. Date/Time Current Smoking Status Comment Facil ity Feb 07, 2017 09:25 AM LIFETIME NON-TOBACCO USER [facility] Tobacco Use History This section includes a history of the smoking, or tobacco-related health factors, that were collected on or before the date of the Encounter. The data comes from the [facility] where the Encounter took place. Date/Time Smoking Status/Tobacco Use Comment F acility Aug 28, 2011 10:21 AM LIFETIME NON-TOBACCO USER [facility] Radiology Reports: +/- 30 days of [...] the Encounter. The data comes from all [facility]. 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 Sammie Topete LAST CREATININE 1.4 [...] of findings. VERIFIED BY: / *ELECTRONICALLY FILED* [facility]
--- OUTSIDE RECORDS SUMMARY | 2023-12-16 15:18 | XMS_ITS | Encounter Summary ---
Author Name [facility]) Organization [facility] [place] Address [address] [place] [address] Care Team Providers Care Straight Cutter Name Role Phone KATELYN PATTON Primary Care Provider Unavailabl e Selected Encounter This section includes the information on record at [place] for the Encounter. Date/Time Encounter Type Encounter Description Reason Pro vider Source Oct 08, 2023 01:15 PM Outpatient Encounter [facility] Encounter Template Text not used by [place] Plan of Treatment: Future Appointments (+ 6 months) and Future Tests (+/- 45 days) The Plan of Treatment section includes future care activities for the patient from all [place] treatmentfacilities. This section includes future appointments and future orders which are active, pending or scheduled. Future Appointments This section includes appointments that were scheduled to occur 6 months from the date of the Encounter, up to a maximum of 20 appointments. The data comes from all [place] treatment facilities. Appointment Date/Time Appointment Type Appointme nt Facility Name Oct 26, 2023 05:30 PM AMBULATORY - REHAB MEDICIN E [facility] Nov 26, 2023 02:00 PM [facility] Nov 28, 2023 10:30 AM AMBULATORY - REHAB MEDICIN E [facility] Dec 21, 2023 11:30 AM AMBULATORY - REHAB MEDICIN [facility] Active, Pending, and Scheduled Orders This section includes a listing of several types of active, pending, and scheduled orders, including clinic medications orders, diagnostic test orders, procedure orders and consult orders; where the start date of the order is 45 days before the date of the Encounter or 45 days after the date of theEncounter. The data comes from all [facility]. Test Date/Time Test Type Test Details Facility Name Oct 01, 2023 08:[address] [facility] [employer] [facility] Social History: Smoking Status (Most current) and Tobacco Use (All prior to encounter date) This section includes the most current, and the historical, smoking and tobacco- related health factors from the [facility] where the Encounter took place. Current Smoking Status This section includes the most current smoking, or tobacco-related health factor, from the [place] facility where the Encounter took place. Date/Time Current Smoking Status Comment Facil ity Feb 07, 2017 09:25 AM LIFETIME NON-TOBACCO USER [facility] Tobacco Use History This section includes a history of the smoking, or tobacco-related health factors, that were collected on or before the date of the Encounter. The data comes from the [place] facility where the Encounter took place. Date/Time [...] the Encounter. The data comes from all [facility]. 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 Sammie Topete LAST CREATININE 1.4 [...] of findings. VERIFIED BY: / *ELECTRONICALLY FILED* [facility] Encounter Notes: All associated encounter notes This section contains the clinical notes associated to the Encounter. Date/Time Encounter Note(s) Provider Source Oct 08, 2023 01:15 PM NONVA NOTE: LOCAL TITLE: COMMUNITY CARE PRE-AUTH LETTER (AUTOPRINT) STANDARD TITLE: NONVA NOTE DATE OF NOTE: OCT 08, 2023@13:15 ENTRY DATE: OCT 08, 2023@13:15:50 AUTHOR: AISLINN JACOBSEN COSIGNER: URGENCY: STATUS: COMPLETED Sep FOZIA WARE [address] [place] [address] Dear FOZIA WARE, Your VA provider has referred you to a provider within the community for care. Your medical care for Mental Health has been authorized with the community care provider listed below. DO NOT REPORT TO THE [place] [facility] [place] Provider info: Care has been approved for the following vendor: Office name, address, and phone number: [facility] [id number] [id number] PH: [phone] Please contact the identified provider to schedule your community appointment. If you need assistance with this appointment, please call your facility community care office [facility] Office of Community Care at [phone] during the hours of 8:30AM - 3:00PM. Please follow up with your local [facility] community care office once this is scheduled. This step is needed to ensure your referral duration is maximized and the VA has accurate referral information for billing purposes. Authorization Number: [id number] Referral Issue Date: Sep Expiration Date: Mar (subject to change based on first appointment) If you are unable to schedule this appointment or the appointment is no longer needed, please contact the community provider above for notification/rescheduling and then call the [facility] Office of Community Care at [phone] during the hours of 8:30AM - 3:00PM. If you need additional care/services not mentioned above or your authorization has and additional care is needed, please contact your primary care provider for a new referral. To review all care/service(s) approved under your referral, please go to the following link: [employer]) Co-Payments: If you are required to pay a VA co-payment, you will be billed by the VA for each authorized visit that you attend. However, you are NOT REQUIRED to make co-payments to a community provider. Thank you for the opportunity to serve you. Sincerely, [place] Community [facility] ([facility]) /sarwat/ AISLINN JACOBSEN MSA Signed: 10/08/2023 13:16 AISLINN JACOBSEN [facility]
--- OUTSIDE RECORDS SUMMARY | 2023-12-16 15:18 | XMS_ITS | Encounter Summary ---
Author Name [facility] [place] [facility] [place] [facility] [place] Address [address] [place] [address] Care Team Providers Care Sleep Medicine Physician Name Role Phone KATELYN PATTON Primary Care Provider Unavailabl e Selected Encounter This section includes the information on record at [place] for the Encounter. Date/Time Encounter Type Encounter Description Reason Provider Source Jul 24, 2023 08:30 AM OFF/OP CNSLTJ NEW/EST MOD 40 ENDOCRINOLOGY ICD-10-CM E89.0 Postprocedural hypothyroidism FREDI GOULD [facility] Encounter Template Text not used by [place] Assessments - Encounter Diagnoses This section includes the primary and secondary diagnoses documented for the Encounter. Date/Time Primary/Secondary Diagnosis Diagnosis Name Provider Source Jul 25, 2023 07:48 PM PRIMARY Postprocedural hypothyroidism FREDI GOULD [facility] Plan of Treatment: Future Appointments (+ 6 months) and Future Tests (+/- 45 days) The Plan of Treatment section includes future care activities for the patient from all [place] treatmentfacilities. This section includes future appointments and future orders which are active, pending or scheduled. Future Appointments This section includes appointments that were scheduled to occur 6 months from the date of the Encounter, up to a maximum of 20 appointments. The data comes from all [place] treatment facilities. Appointment Date/Time Appointment Type Appointme nt Facility Name Aug 15, 2023 09:00 AM AMBULATORY - SURGERY [facility] Sep 03, 2023 09:00 AM [facility]ORY - [facility]IC[facility] Oct 01, 2023 02:30 PM AMBULATORY - NONE [facility] Oct 01, 2023 03:00 PM AMBULATORY - REHAB MEDICIN E [facility] Oct 26, 2023 05:30 PM AMBULATORY - REHAB MEDICIN E [facility] Nov 26, 2023 02:00 PM AMBULATORY - NONE [facility] Nov 28, 2023 10:30 AM AMBULATORY - REHAB MEDICIN E [facility] Dec 21, 2023 11:30 AM AMBULATORY - REHAB MEDICIN E [facility] Active, Pending, and Scheduled Orders This section includes a listing of several types of active, pending, and scheduled orders, including clinic medications orders, diagnostic test orders, procedure orders and consult orders; where the start date of the order is 45 days before the date of the Encounter or 45 days after the date of theEncounter. The data comes from all [place] treatment facilities. Test Date/Time Test Type Test Details Facility Name June 27, 2023 12:00 AM Laboratory - Chemi stry Order OCCULT BLOOD FIT X1 SCREEN STOOL FECES SP ONCE [facility] Lab Results: +/- 30 days of the encounter This section includes the Chemistry and Hematology Lab Results on record with [place] for the patient. Radiology Reports and Pathology Reports are provided separately, in subsequent sections. Lab Results This section contains the Chemistry/Hematology Results that were resulted 30 days before or 30 daysafter the date of the Encounter. Date/Time Source Result Type Result - Unit Interpretation Reference Range Comment June 27, 2023 11:54 AM [facility] THYROID STIMULATING IMMUNOGLOBULIN Specimen Type: SERUM Comment: [...] of this assay have been determined by [facility] [place]. The modifications have not been cleared or approved by the FDA. This assay has been validated pursuant to the CLIA regulations and is used for clinical purposes. Test Performed by [facility], [facility], [address] [place] [address] Michael Jimenez M.D., Ph.D., Director of Laboratories , CLIA [id number] Ordering Provider: KATELYN PATTON Report Released Date/Time: June 27, 2023 11:49 AM Reporting Lab: [facility] [id number] Performing Lab: [address] THYROID STIMULATING IMMUNOGLOBULIN <89 SEE BELOW June 27, 2023 11:54 AM [facility] TOTAL T3 Specimen Type: SERUM No comment entered. Ordering Provider: KATELYN PATTON Report Released Date/Time: June 27, 2023 11:49 AM Reporting Lab: [facility] [id number] Performing Lab: [facility] [phone] TOTAL T3 79 ng/dL 35-193 June 27, 2023 11:02 AM [facility] PSA Specimen Type: SERUM No comment entered. Ordering Provider: KATELYN PATTON Report Released Date/Time: June 27, 2023 10:36 AM Reporting Lab: [facility] [id number] Performing Lab: [facility] [id number] PSA 2.07 ng/mL <4.00 June 27, 2023 11:02 AM [facility] HEMOGLOBIN A1C Specimen Type: BLOOD Comment: [...] June 27, 2023 10:36 AM Reporting Lab: [facility] [id number] Performing Lab: [facility] [phone] HEMOGLOBIN A1C 5.2 4.0-6.0 June 27, 2023 11:02 AM [facility] LIPID PANEL,NON-FASTING Specimen Type: PLASMA No comment entered. Ordering Provider: KATELYN PATTON Report Released Date/Time: June 27, 2023 10:36 AM Reporting Lab: [facility] [id number] Performing Lab: [facility] [phone] CHOLESTEROL 169 mg/dL <199 .HDL 57 mg/dL >40 LDL CALCULATION 102 mg/dL H <99 VLDL CALCULATION 10 mg/dL <29 NON HDL CHOLESTEROL 112 mg/dL <129 TRIG(NON FASTING) 50 mg/dL <149 June 27, 2023 11:02 AM [facility] COMPREHENSIVE METABOLIC PANEL+MG Specimen Type: PLASMA No comment entered. Ordering Provider: KATELYN PATTON Report Released Date/Time: June 27, 2023 10:36 AM Reporting Lab: [facility] [phone] Performing Lab: [facility] [phone] CREATININE 1.4 mg/dL H 0.7-1.2 UREA NITROGEN [...] L >60 June 27, 2023 11:02 AM [facility] TSH W/REFLEX TO FREE T4 Specimen Type: PLASMA No comment entered. Ordering Provider: KATELYN PATTON Report Released Date/Time: June 27, 2023 10:36 AM Reporting Lab: [facility] [id number] Performing Lab: [facility] [phone] TSH 0.95 u[IU]/mL 0.35-4.94 FREE T4 1.11 ng/dL 0.70-1.48 June 27, 2023 11:02 AM [facility] CBC Specimen Type: BLOOD No comment entered. Ordering Provider: KATELYN PATTON Report Released Date/Time: June 27, 2023 10:36 AM Reporting Lab: [facility] [phone] Performing Lab: [facility] [phone] WBC 5.24 10*3/uL 4.0-11.0 RBC 4.76 10*6/uL 4.6-6.2 HGB 14.6 g/dL 13.5-17.9 HCT 43.7 41-54 MCV 91.8 fL 80-100 MCH 30.7 pg 27-33 MCHC 33.4 g/dL 32.0-37.5 PLT 233 10*3/uL 150-400 MPV 10.6 fL H 7.4-10.4 RDW 12.5 11.5-14.5 June 27, 2023 11:02 AM [facility] FREE-T4 Specimen Type: PLASMA No comment entered. Ordering Provider: KATELYN PATTON Report Released Date/Time: June 27, 2023 10:36 AM Reporting Lab: [facility] [id number] Performing Lab: [facility] [phone] FREE T4 1.11 ng/dL 0.70-1.48 Vital Signs: All taken on the encounter date This section contains inpatient and outpatient Vital Signs collected on the date of the Encounter. Date/Time Temperature Pulse Blood Pressure Respiratory Rate SP02 Pain Height Weight Body Mass Index Source Jul 24, 2023 08:34 AM 97.6 80 133/74 18 96 0 224 30 [facility] Social History: Smoking Status (Most current) and Tobacco Use (All prior to encounter date) This section includes the most current, and the historical, smoking and tobacco- related health factors from the [facility] where the Encounter took place. Current Smoking Status This section includes the most current smoking, or tobacco-related health factor, from the [place] facility where the Encounter took place. Date/Time Current Smoking Status Comment Michelle ity Feb 07, 2017 09:25 AM LIFETIME NON-TOBACCO USER [facility] Tobacco Use History This section includes a history of the smoking, or tobacco-related health factors, that were collected on or before the date of the Encounter. The data comes from the [place] facility where the Encounter took place. Date/Time Smoking Status/Tobacco Use Comment F kasandra Aug 28, 2011 10:21 AM LIFETIME NON-TOBACCO USER [facility] Encounter Notes: All associated encounter notes This section contains the clinical notes associated to the Encounter. Date/Time Encounter Note(s) Provider Source Jul 25, 2023 07:48 PM ADDENDUM: LOCAL TITLE: Addendum STANDARD TITLE: ADDENDUM DATE OF NOTE: JUL 25, 2023@19:48:49 ENTRY DATE: JUL 25, 2023@19:48:49 AUTHOR: MAGDALENA GOULD EXP COSIGNER: URGENCY: STATUS: COMPLETED --we are not neeting to make any adjustments in this pt's thyroid hormone replacement; PCP could follow going forward and re-refer if any future questions/issues develop for us. Alerting PCP to this plan--please let us know if for some reason you would like us to continue following this pt or you ahve any questions. /sarwat/ MAGDALENA GOULD MD PHYSICIAN Signed: 07/25/2023 19:50 Receipt Acknowledged By: 07/27/2023 09:58 /sarwat/ KATELYN PATTON DNP,RATE CLERK PASSENGER,ARDMS --- Original Document --- 07/24/23 METABOLIC/ENDOCRINE CONSULT: Metabolic/Endocrine Clinic Note Nursing notes reviewed Chief Complaint: 63 year old MALE referred for initial evaluation of Hypothyroidism History of Present Illness: He was diagnosed with Head and Neck SCC in 2014, treated with cytotoxic chemotherapy (cisplatin) and radiation. He recalls being diagnosed with hypothyroidism in the first year of treatment and was started on levothyroxine. For about 2 years now he due to ongoing fatigue and cold intolerance he tells me, T3 was added. He is currently taking Levothyroxine 100 mcg daily in AM and liothyroinine 5 mcg once daily only. His main concerns today are ongoign fatigue and thermoregulation and wonders if these are related to his hypothyroidism. Fatigue he describes more as daytime somnolence for which he will require to take naps. He has history of BPH with nocturia which was occuring about 3 times per night and since starting tamsulosin, this has improved to maybe 1-2 times per night. He has history of snoring and has had a negative sleep study in the past. With respect to thermoregulation he reports he mostly has cold intolerance and at times some heat intolerance. 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 He is currently taking Levothyroxine 100 mcg daily and liothyronine 5 mcg once daily. Family history. Mother with Hyperthyroidism, was treated with LUZ and then levothyroxine following this. Past Medical History: Active problems - Computerized Problem List is the source for the followin. Squamous cell carcinoma of head and neck - 04/10/2022- EGD and biopsy done- result- gastric mucosa with reactive gastropathy and focal intestinal metaplasia 2. Iatrogenic hypothyroidism 3. Cervicalgia 4. Adjustment disorder with depressed mood 5. 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 Mallet finger - Mallet finger of right hand 7. History of right hip replacement 8. Hypothyroidism 9. Gastroesophageal reflux disease Allergies: ACETAMINOPHEN/HYDROCODONE (June 27, 2023) TAPE (June 27, 2023) SEASONAL ALLERGIES (June 27, 2023) Active Outpatient Medications (including Supplies): CETIRIZINE HCL 10MG TAB TAKE ONE TABLET BY MOUTH EVERY ACTIVE MORNING FOR ALLERGIES LEVOTHYROXINE NA (SYNTHROID) 100MCG TAB TAKE ONE TABLET BY HOLD MOUTH EVERY DAY FOR THYROID LIOTHYRONINE NA 5MCG TAB TAKE ONE TABLET BY MOUTH EVERY ACTIVE MORNING FOR THYROID OMEPRAZOLE 20MG EC CAP TAKE ONE CAPSULE BY MOUTH EVERY DAY ACTIVE NEEDED FOR HEARTBURN - TAKE ON EMPTY STOMACH ONDANSETRON 4MG ORAL DISINTEGRATING TAB DISSOLVE ONE ACTIVE TABLET BY MOUTH EVERY MORNING NEEDED FOR NAUSEA AND VOMITING TAMSULOSIN HCL 0.4MG CAP TAKE ONE CAPSULE BY MOUTH EVERY ACTIVE MORNING FOR URINARY SYMPTOMS Non-VA MULTIVITAMIN CAP/TAB 1 TABLET MOUTH EVERY DAY ACTIVE MEDICATION RECONCILIATION Outpatient 1. At this visit I have reviewed the medication list, and discussed relevant medications with the patient/surrogate. An updated patient medication list was given to the participant(s). 2. Education on NEW Medication: I have reviewed the medication list for possible drug:drug interactions or contraindications prior to ordering NEW medications during this visit. 3. Patient/surrogate indicated readiness to learn and has been instructed on action, dose, frequency and side effects of the new medication and I noted new medication on participant's copy of the medication list. Physical Exam: Vital Signs: Temp: 97.6 F [36.4 C] (07/24/2023 08:34) B/P: 133/74 (07/24/2023 08:34) Pulse: 80 (07/24/2023 08:34) Ht: 72.441 in [184.0 cm] (06/27/2023 09:55) Wt: 224 lb [101.60 kg] (07/24/2023 08:34) Pain: 0 (07/24/2023 08:34) BMI: 30.1 No nodules palpable on neck exam, no lymphadenopathy DTR are normal. Today's Labs: LAB RESULTS TODAY - NONE FOUND 06/27/2023 TSH 0.95 FT4 1.11 TT3 079 Assessment/Plan: 1. 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 Currently he is having ongoing fatigue which is mostly daytime somnolence and cold intolerance. Reviewed his recent Thyroid Function tests are normal so unlikely that above symptoms would be explained by inadequate thyroid hormone replacement. Reviewed instances where thyroid hormone needs may change. Also reviewed that if he wanted to simplify thyroid hormone replacement, we could stop liothyronine but he would require to have an increase in his levothyroxine dose up to 125 mcg to start, but he is not currently interested. Reviewed that ongoing management can be through Primary Care, he can return as needed if additional questions arise. All labs completed at this time were discussed with the patient. Time spent: 45 min Patient discussed with attending Dr Magdalena Hatch MD Endocrinology Fellow /sarwat/ ARAM GUTIERREZ ENDOCRINOLOGY FELLOW Signed: 07/24/2023 09:43 Receipt Acknowledged By: 07/25/2023 19:48 /sarwat/ MAGDALENA GOULD MD PHYSICIAN MAGDALENA GOULD [facility] Jul 24, 2023 08:52 AM ENDOCRINOLOGY CONSULT: LOCAL TITLE: METABOLIC/ENDOCRINE CONSULT STANDARD TITLE: ENDOCRINOLOGY CONSULT DATE OF NOTE: JUL 24, 2023@08:52 ENTRY DATE: JUL 24, 2023@08:52:17 AUTHOR: ARAM UNGER EXP COSIGNER: URGENCY: STATUS: COMPLETED METABOLIC/ENDOCRINE CONSULT Has ADDENDA Metabolic/Endocrine Clinic Note Nursing notes reviewed Chief Complaint: 63 year old MALE referred for initial evaluation of Hypothyroidism History of Present Illness: He was diagnosed with Head and Neck SCC in 2014, treated with cytotoxic chemotherapy (cisplatin) and radiation. He recalls being diagnosed with hypothyroidism in the first year of treatment and was started on levothyroxine. For about 2 years now he due to ongoing fatigue and cold intolerance he tells me, T3 was added. He is currently taking Levothyroxine 100 mcg daily in AM and liothyroinine 5 mcg once daily only. His main concerns today are ongoign fatigue and thermoregulation and wonders if these are related to his hypothyroidism. Fatigue he describes more as daytime somnolence for which he will require to take naps. He has history of BPH with nocturia which was occuring about 3 times per night and since starting tamsulosin, this has improved to maybe 1-2 times per night. He has history of snoring and has had a negative sleep study in the past. With respect to thermoregulation he reports he mostly has cold intolerance and at times some heat intolerance. 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 He is currently taking Levothyroxine 100 mcg daily and liothyronine 5 mcg once daily. Family history. Mother with Hyperthyroidism, was treated with LUZ and then levothyroxine following this. Past Medical History: Active problems - Computerized Problem List is the source for the followin. Squamous cell carcinoma of head and neck - 04/10/2022- EGD and biopsy done- result- gastric mucosa with reactive gastropathy and focal intestinal metaplasia 2. Iatrogenic hypothyroidism 3. Cervicalgia 4. Adjustment disorder with depressed mood 5. 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 Mallet finger - Mallet finger of right hand 7. History of right hip replacement 8. Hypothyroidism 9. Gastroesophageal reflux disease Allergies: ACETAMINOPHEN/HYDROCODONE (June 27, 2023) TAPE (June 27, 2023) SEASONAL ALLERGIES (June 27, 2023) Active Outpatient Medications (including Supplies): CETIRIZINE HCL 10MG TAB TAKE ONE TABLET BY MOUTH EVERY ACTIVE MORNING FOR ALLERGIES LEVOTHYROXINE NA (SYNTHROID) 100MCG TAB TAKE ONE TABLET BY HOLD MOUTH EVERY DAY FOR THYROID LIOTHYRONINE NA 5MCG TAB TAKE ONE TABLET BY MOUTH EVERY ACTIVE MORNING FOR THYROID OMEPRAZOLE 20MG EC CAP TAKE ONE CAPSULE BY MOUTH EVERY DAY ACTIVE NEEDED FOR HEARTBURN - TAKE ON EMPTY STOMACH ONDANSETRON 4MG ORAL DISINTEGRATING TAB DISSOLVE ONE ACTIVE TABLET BY MOUTH EVERY MORNING NEEDED FOR NAUSEA AND VOMITING TAMSULOSIN HCL 0.4MG CAP TAKE ONE CAPSULE BY MOUTH EVERY ACTIVE MORNING FOR URINARY SYMPTOMS Non-VA MULTIVITAMIN CAP/TAB 1 TABLET MOUTH EVERY DAY ACTIVE MEDICATION RECONCILIATION Outpatient 1. At this visit I have reviewed the medication list, and discussed relevant medications with the patient/surrogate. An updated patient medication list was given to the participant(s). 2. Education on NEW Medication: I have reviewed the medication list for possible drug:drug interactions or contraindications prior to ordering NEW medications during this visit. 3. Patient/surrogate indicated readiness to learn and has been instructed on action, dose, frequency and side effects of the new medication and I noted new medication on participant's copy of the medication list. Physical Exam: Vital Signs: Temp: 97.6 F [36.4 C] (07/24/2023 08:34) B/P: 133/74 (07/24/2023 08:34) Pulse: 80 (07/24/2023 08:34) Ht: 72.441 in [184.0 cm] (06/27/2023 09:55) Wt: 224 lb [101.60 kg] (07/24/2023 08:34) Pain: 0 (07/24/2023 08:34) BMI: 30.1 No nodules palpable on neck exam, no lymphadenopathy DTR are normal. Today's Labs: LAB RESULTS TODAY - NONE FOUND 06/27/2023 TSH 0.95 FT4 1.11 TT3 079 Assessment/Plan: 1. 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 Currently he is having ongoing fatigue which is mostly daytime somnolence and cold intolerance. Reviewed his recent Thyroid Function tests are normal so unlikely that above symptoms would be explained by inadequate thyroid hormone replacement. Reviewed instances where thyroid hormone needs may change. Also reviewed that if he wanted to simplify thyroid hormone replacement, we could stop liothyronine but he would require to have an increase in his levothyroxine dose up to 125 mcg to start, but he is not currently interested. Reviewed that ongoing management can be through Primary Care, he can return as needed if additional questions arise. All labs completed at this time were discussed with the patient. Time spent: 45 min Patient discussed with attending Dr Magdalena Hatch MD Endocrinology Fellow /sarwat/ ARAM GUTIERREZ ENDOCRINOLOGY FELLOW Signed: 07/24/2023 09:43 Receipt Acknowledged By: 07/25/2023 19:48 /sarwat/ MAGDALENA GOULD MD PHYSICIAN 07/25/2023 ADDENDUM STATUS: COMPLETED --we are not neeting to make any adjustments in this pt's thyroid hormone replacement; PCP could follow going forward and re-refer if any future questions/issues develop for us. Alerting PCP to this plan--please let us know if for some reason you would like us to continue following this pt or you ahve any questions. /sarwat/ MAGDALENA GOULD MD PHYSICIAN Signed: 07/25/2023 19:50 Receipt Acknowledged By: * AWAITING SIGNATURE * KATELYN PATTON RAUL A [facility] Jul 24, 2023 08:37 AM INTERNAL MEDICINE OUTPATIENT NOTE: LOCAL TITLE: MEDICINE CLINIC NURSING NOTE STANDARD TITLE: INTERNAL MEDICINE OUTPATIENT NOTE DATE OF NOTE: JUL 24, 2023@08:37 ENTRY DATE: JUL 24, 2023@08:38:05 AUTHOR: MARION ESTEBAN EXP COSIGNER: URGENCY: STATUS: COMPLETED TYPE OF VISIT: Appointment Check In Type of appointment: In-person appointment REASON FOR VISIT: metabolic visit ALLERGIES: ACETAMINOPHEN/HYDROCODONE (June 27, 2023) TAPE (June 27, 2023) SEASONAL ALLERGIES (June 27, 2023) VITAL SIGNS: Blood Pressure: 133/74 (07/24/2023 08:34) Pulse: 80 (07/24/2023 08:34) Respiration: 18 (07/24/2023 08:34) Temperature: 97.6 F [36.4 C] (07/24/2023 08:34) Weight: 224 lb [101.60 kg] (07/24/2023 08:34) Height: 72.441 in [184.0 cm] (06/27/2023 09:55) BMI: 30.1 O2 Sat: 96% (07/24/2023 08:34) Pain: 0 (07/24/2023 08:34) PAIN SCREEN: Patient is not having significant pain that they wish to discuss with their provider today. MEDICATION Over the Counter/Herbal Medications: The patient states that they take some outside medications and/or herbals. /sarwat/ MARION ESTEBAN LPN LICENSED PRACTICAL NURSE Signed: 07/24/2023 08:39 MARION ESTEBAN [facility]
[2023-12-16 15:22] LABS: Basophils Absolute Auto 0.05 K/uL (0.00-0.30); Eosinophils Absolute Auto 0.17 K/uL (0.00-0.50); Eosinophils Percent Auto 3.3 % (0.0-7.0); Hemoglobin* 15.7 gm/dL (13.5-17.5); Immature Granulocytes Abs Auto 0.01 K/uL (0.00-0.30); Immature Granulocytes Pct Auto 0.2 %; Lymphocytes Absolute Auto 1.34 K/uL (0.90-2.90); Lymphocytes Percent Auto 25.9 % (20-44); Mean Corpuscular HGB Conc 33 gm/dL (32-36); Mean Corpuscular Hemoglobin 30 pg (26-34); Mean Corpuscular Volume 92 fL (80-100); Monocytes Percent Auto 15.3 % (0.0-11.0); Neutrophils Absolute Auto 2.82 K/uL (1.7-7.0); Neutrophils Percent Auto 54.3 % (42.0-72.0); Platelet Count* 228 K/uL (140-440); RDW Coefficient of Variation % 12.6 % (11.5-15.5); Red Blood Count 5.24 m/uL (4.30-5.90); White Blood Count* 5.18 K/uL (4.50-11.00)
[2023-12-16 15:23] LABS: Albumin* 4.1 g/dL (3.3-5.0); Chloride* 105 mmol/L (96-114); Sodium* 140 mmol/L (135-149)
[2023-12-16 15:24] LABS: Slide Review Reflex No
[2023-12-16 15:27] LABS: Alanine Aminotransferase* 36 U/L (4-50); Alkaline Phosphatase* 74 U/L (40-150); Anion Gap 7 mEq/L (7-15); Aspartate Amino Transferase* 46 U/L (12-35); Bilirubin Total* 0.4 mg/dL (0.1-1.5); Blood Urea Nitrogen* 23 mg/dL (7-30); Calcium* 9.5 mg/dL (8.4-10.6); Carbon Dioxide* 28 mmol/L (20-32); Creatinine* 1.5 mg/dL (0.5-1.5); Est. Creatinine Clearance* 56.76; Estimated Glomerular Filt Rate 53 ml/min; Glucose* 99 mg/dL (60-115); Potassium* 3.8 mmol/L (3.6-5.1); Total Protein* 6.9 g/dL (6.0-8.3)
[2023-12-16 15:33] LABS: C Reactive Protein* < 0.5 mg/dL (0.5-1.0)
[2023-12-16 15:51] LABS: Appearance Urine Clear (Clear); Bilirubin Urine Negative (Negative); Blood Urine Negative (Negative); Color Urine Yellow (Yellow); Glucose Urine Negative (Negative); Ketones Urine Negative (Negative); Leukocyte Esterase Urine Negative (Negative); Nitrite Urine Negative (Negative); Protein Urine Negative (Negative); Specific Gravity Urine 1.015 (1.000-1.030); Urobilinogen Urine 0.2 (0.2-1.0); pH Urine 7.5 (5.0-8.5)
[2023-12-16 16:18] LABS: RBC Urine 0-2 (0-2); WBC Urine 0-2 (0-5)
[2023-12-16] MEDS: ASPIRIN 81 MG TAB.CHEW 324 MG PO (17:07)
--- NOTE | 2023-12-16 17:21 | P.IMHP_ITS ---
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 this morning. He was taking his dogs out and had sat down on a bench but when he went to stand he had weakness in his left leg. Same sensation as when your foot falls asleep. He reports his balance feeling off. His [employer] he was dragging his leg when attempting steps around 1330 this afternoon. His symptoms have persisted without resolve, > 5.5 hours after onset by the time he presented to the ED. Denies headache or visual/auditory changes. Denies chest pain or shortness of breath. Denies recent fever chills. Denies abdominal pain. Had mild nausea this morning without vomiting. Episode of diarrhea this morning. Denies recent back pain or injury/trauma. Was seen more than a year ago, in February 2022, for a left shoulder impingement. Works out, lifting weights 6x/week. CT head shows no acute intracranial process, mild chronic ischemic microvascular disease. CTA neck shows mild atherosclerotic disease, no occlusion or dissection. ED provider discussed with Dr. Wagoner, [facility] Neurology, recommended admission for observation and further stroke workup including MRI brain as well as MRI lumbar spine for concern of lumbo-sacral radiculopathy. Upper extremity abnormalities questionable for ulnar neuropathy with history of similar numbness in the past with self resolution. Patient received aspirin 325 mg in the ED. . Works as a learning support services director. Full code. Review of Systems Narrative: REVIEW OF SYSTEMS: Complete review of systems performed and negative unless otherwise stated in HPI or below. [facility] Medical History (Updated 12/16/23 @ 18:25 by Annie Cisneros PA-C) History of gastrostomy tube placement Squamous cell carcinoma Arthritis ?M19.90 - Unspecified osteoarthritis, unspecified site (ICD-10) Hypothyroid ?E03.9 - Hypothyroidism, unspecified (ICD-10) Surgical History History of tonsillectomy ?Z90.89 - Acquired absence of other organs (ICD-10) History of right hip replacement ?Z96.641 - Presence of right artificial hip joint (ICD-10) H/O hernia repair ?Z98.890 - Other specified postprocedural states (ICD-10) ?Z87.19 - Personal history of other diseases of the digestive system (ICD-10) Social History What is your current living situation?: I presently have a place to live Problems where you live: no known problems Problems where you live details: none In the past 12 months, utilities in danger of being shut off: no In past 12 months, lack of transportation kept you from medical appts, meetings, work, or getting things needed for daily living: no In the past 12 mos, have been you worried that your food would run out before you had money to buy more?: never true In the past 12 mos, the food you bought just didn't last and you didn't have money to buy more?: never true Smoking Status: Never smoker How often do you have a drink containing alcohol: 2-3 times a week Alcohol type: hard liquor How often do you have six or more drinks on one occasion: Weekly AUDIT-C Alcohol total score: 6 Non-prescribed substance use: denies use How often does anyone, including family, friends and others, physically hurt you : never How often does anyone, including family, friends and others, insult or talk down to you: never How often does anyone, including family, friends and others, threaten you with harm: never How often does anyone, including family, friends and others, scream or curse at you: never service: Yes Meds Home Medications and Allergies Home Medications ?Medication ?Instructions ?Recorded ?Confirmed ?Type cetirizine 10 mg capsule (Zyrtec) 10 mg PO QDAY PRN 03/06/22 03/06/22 History levothyroxine 100 mcg capsule 100 mcg PO QDAY 03/06/22 03/06/22 History liothyronine 5 mcg tablet 5 mcg PO QDAY 03/06/22 03/06/22 History Allergies Allergy/AdvReac Type Severity Reaction Status Date / Time hydrocodone Allergy itch Verified 12/16/23 15:07 Exam Narrative: Exam Narrative: PHYSICAL EXAM General: Pleasant, conversant, NAD HEENT: Normocephalic, atraumatic, sclera white, EOMI, oral mucosa moist Cardiovascular: RRR, S1S2. No pitting edema Pulmonary: CTA bilaterally without rhonchi, rales, expiratory wheezes. No dyspnea Abdominal: Soft, nondistended, NTTP Neurological: Alert, answering questions appropriately, cranial nerves intact, muscle strength 5/5 UE/LE equal bilaterally. Strength LLE to gravity is weak, but normal to resistance. AROMI bilaterally Extremities: No gross joint deformity or swelling. Neurovascularly intact Skin: Warm, dry. Const: Vital Signs, click to edit/add: Vital Signs - 24 hr 12/16/23 14:50 12/16/23 14:51 12/16/23 14:54 Temperature 97.3 F L Pulse Rate 90 92 Pulse Rate [Pulse Oximeter] 88 Respiratory Rate 18 Blood Pressure 204/121 H Blood Pressure [Ri ght Upper Arm] 204/121 H Pulse Oximetry 96 95 95 Oxygen Delivery Me thod Room Air 12/16/23 15:08 12/16/23 15:12 12/16/23 15:15 Temperature Pulse Rate 96 88 88 Pulse Rate [Pulse Oximeter] Respiratory Rate Blood Pressure 198/114 H Blood Pressure [Ri ght Upper Arm] Pulse Oximetry 97 95 96 Oxygen Delivery Me thod 12/16/23 15:16 12/16/23 15:22 12/16/23 15:23 Temperature Pulse Rate 89 83 85 Pulse Rate [Pulse Oximeter] Respiratory Rate Blood Pressure 180/101 H 175/103 H Blood Pressure [Ri ght Upper Arm] Pulse Oximetry 96 94 94 Oxygen Delivery Me thod 12/16/23 15:30 12/16/23 15:31 12/16/23 15:45 Temperature Pulse Rate 80 78 75 Pulse Rate [Pulse Oximeter] Respiratory Rate 0 L Blood Pressure 169/92 H Blood Pressure [Ri ght Upper Arm] Pulse Oximetry 94 95 96 Oxygen Delivery Me thod Room Air 12/16/23 15:46 12/16/23 15:48 12/16/23 16:00 Temperature Pulse Rate 75 75 73 Pulse Rate [Pulse Oximeter] Respiratory Rate 16 Blood Pressure 188/108 H Blood Pressure [Ri ght Upper Arm] Pulse Oximetry 96 94 95 [facility] 12/16/23 16:01 12/16/23 16:16 12/16/23 16:24 Temperature Pulse Rate 78 77 Pulse Rate [Pulse Oximeter] Respiratory Rate Blood Pressure 168/84 H 188/107 H Blood Pressure [Ri ght Upper Arm] Pulse Oximetry 96 98 [facility] 12/16/23 16:25 12/16/23 16:30 12/16/23 16:32 Temperature Pulse Rate 75 77 73 Pulse Rate [Pulse Oximeter] Respiratory Rate Blood Pressure 185/106 H 172/96 H Blood Pressure [Ri ght Upper Arm] Pulse Oximetry 97 95 96 [facility] 12/16/23 16:45 12/16/23 16:46 Temperature Pulse Rate 80 82 Pulse Rate [Pulse Oximeter] Respiratory Rate Blood Pressure 160/121 H Blood Pressure [Ri ght Upper Arm] Pulse Oximetry 97 95 Oxygen Delivery [facility] Hospitalist - H&P: Result Labs Labs: Short CBC 12/16/23 Range/Units 15:04 WBC 5.18 (4.50-11.00) K/uL Hgb 15.7 (13.5-17.5) gm/dL Hct 48.0 (37.0-53.0) % Plt Count 228 (140-440) K/uL BMP 12/16/23 15:04 Sodium 140 Potassium 3.8 Chloride 105 Carbon Dioxide 28 BUN 23 Creatinine 1.5 Glucose 99 Calcium 9.5 Liver Function 12/16/23 Range/Units 15:04 Total Bilirubin 0.4 (0.1-1.5) mg/dL AST 46 H (12-35) U/L ALT 36 (4-50) U/L Alkaline Phosphatase 74 (40-150) U/L Albumin 4.1 (3.3-5.0) g/dL Urine 12/16/23 Range/Units 15:46 Urine Color Yellow (Yellow) Urine Appearance Clear (Clear) Urine pH 7.5 (5.0-8.5) Ur Specific [place] 1.015 (1.000-1.030) Urine Protein Negative (Negative) Urine Glucose (UA) Negative (Negative) ECG Attestation: I personally reviewed and interpreted this ECG as follows: Interpretation: NSR, ventricular rate 87, QTC 457 Imaging CTA neck: Attestation: I have reviewed the pertinent imaging results. Radiologist's impression: CTA head: No proximal intracranial arterial occlusions, filling defects or high-grade stenoses. CTA neck: Mild atherosclerotic disease. No occlusion or dissection CT scan - head: Attestation: I have reviewed the pertinent imaging results. Radiologist's impression: No acute blurring of the vazquez-white differentiation. There is no intracranial hemorrhage. The ventricles are proportionate to the cerebral sulci. The 4th ventricle is midline. Basal cisterns appear patent. No abnormal extra-axial fluid collection identified. Mild parenchymal volume loss. There is mild patchy periventricular hypodensity, favored to represent chronic ischemic microvascular disease. There is no intracranial mass, mass effect or midline shift identified. No depressed calvarial fracture. Impression: 1. No acute intracranial process. 2. Mild chronic ischemic microvascular disease. Assessment and Plan Assessment and plan (1) Left leg weakness: Problem comment: -onset left leg weakness and numbness at 9:30 a.m. 12/16/23 -CT head shows no acute intracranial process, mild chronic ischemic microvascular disease -CTA head/neck shows mild atherosclerotic disease, no occlusion or dissection Per [facility] neurology: Distribution of numbness (involving back of thigh, while leg below the knee) associated with proximal predominant weakness (hip flexors>knee flexors/extensor>ankle dorsi-planter flexors) Suspect lumbo-sacral radiculopathy vs lower suspicion for ischemic stroke NO IV TNK - beyond therapeutic window NO LVO Recommend: - ASA 325mg in the ED - Allow permissive HTN, prn for >220/120 - MRI BRAIN WO, MRI L-spine WO, ordered for Sunday12/17/23. Ativan prn prior to imaging - Further stroke work up can be pursued if stroke seen on MRI - neurochecks q.4 hours, telemetry, bedside swallow eval with diet as tolerated for known history of dysphagia (cancer related) - SCDs for VTE PPX - Neurology follow-up tomorrow Status: Acute (2) Left arm numbness: Problem comment: -onset left upper extremity numbness at 9:30 a.m. 12/16/2023 -remote h/o ligament tear/paresthesias L hand Per [facility] Likely relfects ulnar neuorpathy Endorses similar numbness in the past with self-resolution -monitor for new or worsening symptoms Status: Acute (3) Hypothyroid: Problem comment: -TSH 2.11. Continue levothyroxine, liothyronine. Followed [facility] Status: Acute (4) Squamous cell carcinoma: Problem comment: -p16 positive HNSCC, head and neck, diagnosis October 2014 -s/p radiosensitizing cisplatin therapy 2014. No recurrence. Followed by [facility] - switching to [place] -with dysphagia - managed with diet Status: Acute Total Time Spent Total Time Spent: Total time spent caring for the patient today was 75 minutes. This includes time spent for the visit reviewing the chart, time spent during the visit, time spent after the visit and documentation and planning in coordination of care.
[2023-12-16 17:55] LABS: PCR FLU A Negative PCR FLU A (Negative); PCR FLU B Negative PCR FLU B (Negative); PCR RSV Negative PCR RSV (Negative); SARS PCR* Negative SARS-CoV-2 (Negative)
--- NOTE | 2023-12-16 19:34 | PC.NURSE ---
ADMISSION: The patient A&O, LLE is heavy and numb beyond the lower buttock. Reports a chronic headache. Using the walker to ambulate with this new weakness. Upon later check in the patient reported new L arm heaviness and L shoulder weakness. EKG was completed and given to [place]. Regular diet. Call light within reach. Melissa TRAN BSN
[2023-12-16 20:14] LABS: Troponin I* < 0.01 ng/mL (0.01-0.04)
[2023-12-16] MEDS: SODIUM CHLORIDE 0.9 % (FLUSH) 10 ML SYRINGE 5 ML IVF (21:12)
[2023-12-16] MEDS: LORazepam 0.5 MG TABLET PO (22:45)
[2023-12-17] VITALS (11 sets, daily range): BP systolic 150–162; BP diastolic 82–106; PULSE 70–80; RESP 16–18; TEMP 36.5–36.9; O2SAT 95–96
[2023-12-17 06:19] LABS: Hematocrit 46.5 % (37.0-53.0); Hemoglobin* 14.9 gm/dL (13.5-17.5); Mean Corpuscular HGB Conc 32 gm/dL (32-36); Mean Corpuscular Hemoglobin 30 pg (26-34); Mean Corpuscular Volume 92 fL (80-100); Platelet Count* 208 K/uL (140-440); Red Blood Count 5.03 m/uL (4.30-5.90); White Blood Count* 4.35 K/uL (4.50-11.00)
[2023-12-17 06:33] LABS: Chloride* 106 mmol/L (96-114); Potassium* 4.2 mmol/L (3.6-5.1); Slide Review Reflex No; Sodium* 138 mmol/L (135-149)
[2023-12-17 06:36] LABS: Anion Gap 3 mEq/L (7-15); Carbon Dioxide* 29 mmol/L (20-32); Creatinine* 1.5 mg/dL (0.5-1.5); Est. Creatinine Clearance* 56.76; Estimated Glomerular Filt Rate 53 ml/min
[2023-12-17] MEDS: LEVOTHYROXINE 100 MCG TABLET PO (06:36)
[2023-12-17] MEDS: OMEPRAZOLE 20 MG CAPSULE DR PO (06:36)
[2023-12-17 06:37] LABS: Blood Urea Nitrogen* 26 mg/dL (7-30); Calcium* 9.4 mg/dL (8.4-10.6); Glucose* 105 mg/dL (60-115)
--- NOTE | 2023-12-17 07:50 | CRLHL7_ITS ---
For Patients: As a result of the Century Cures Act, medical imaging exams and procedure reports are released immediately into your electronic medical record. You may view this report before your referring provider. If you have questions, please contact your health care provider. Indication: Left leg weakness Technique: Multiplanar, multisequence, MRI of the lumbar spine, obtained without contrast. Comparison: No relevant comparison studies available at this institution. Findings: The normal lumbar lordosis is preserved. Trace degenerative retrolisthesis at L2-3, anterolisthesis at L4-5. No acute osseous abnormality. Degenerative Schmorl`s nodes at the L2 inferior endplate. Small intraosseous hemangioma within the L3 vertebral body. No suspicious bone marrow lesion. Conus medullaris terminates at L1-L2. Small cystic foci are noted within the right hepatic lobe. No concerning findings identified in the paraspinal soft tissues. Included SI joints are unremarkable. T12-L1: No neural foraminal or spinal canal stenosis. L1-L2: Mild diffuse disc bulge. No right, mild left neural foraminal narrowing. No spinal canal stenosis. L2-L3: Mild diffuse disc bulge. Mild bilateral neural foraminal narrowing. No spinal canal stenosis. L3-L4: Mild diffuse disc bulge, right foraminal annular fissure, mild facet arthropathy. No right, mild left neural foraminal narrowing. No spinal canal stenosis. L4-L5: Mild diffuse disc bulge, moderate left asymmetric facet arthropathy and small facet joint effusion. Mild right, moderate left neural foraminal stenosis. Mild spinal canal narrowing with left lateral recess stenosis potentially impinging the descending left L5 nerve root. L5-S1: Diffuse disc bulge, moderate facet arthropathy. Moderate bilateral neural foraminal stenosis. Mild spinal canal narrowing with right lateral recess stenosis and potential descending right S1 nerve root impingement. Impression: 1. Lumbar spondylosis as detailed. 2. At L4-L5, moderate left neural foraminal stenosis and mild spinal canal narrowing with left lateral recess stenosis, potentially impinging the descending left L5 nerve root. 3. At L5-S1, moderate bilateral neural foraminal stenosis, with mild spinal canal narrowing and right lateral recess stenosis, potentially impinging the descending right S1 nerve root. Dictated by Birdie Gonzalez MD @ 12/17/2023 12:52:50 PM (Electronically Signed)
--- NOTE | 2023-12-17 07:50 | CRLHL7_ITS ---
For Patients: As a result of the Century Cures Act, medical imaging exams and procedure reports are released immediately into your electronic medical record. You may view this report before your referring provider. If you have questions, please contact your health care provider. Indication: Left leg weakness Technique: Multiplanar, multisequence MRI of the brain obtained without contrast. Comparison: CT head and CTA head/neck 12/16/2023 Findings: There is a small area of mildly restricted diffusion in the region of the right posterior limb internal capsule. No hemorrhagic transformation, midline shift, hydrocephalus or herniation. White matter signal is unremarkable. Partially empty sella configuration. Grossly preserved major expected intracranial flow voids. Age-appropriate bone marrow signal. No obstructive paranasal sinus disease or mastoid effusion. Unremarkable orbits. Impression: 1. Small acute/subacute lacunar infarct involving the posterior limb of the right internal capsule. 2. No hemorrhagic transformation. Otherwise unremarkable MRI brain. Dictated by Birdie Gonzalez MD @ 12/17/2023 12:46:08 PM (Electronically Signed)
--- NOTE | 2023-12-17 08:17 | P.IMPN_ITS ---
Progress Note: A&P Assessment and plan (1) Left leg weakness: Problem details: -onset left leg weakness and numbness at 9:30 a.m. 12/16/23 -CT head shows no acute intracranial process, mild chronic ischemic microvascular disease -CTA head/neck shows mild atherosclerotic disease, no occlusion or dissection Per [facility] neurology: Distribution of numbness (involving back of thigh, while leg below the knee) associated with proximal predominant weakness (hip flexors>knee flexors/extensor>ankle dorsi-planter flexors) Suspect lumbo-sacral radiculopathy vs lower suspicion for ischemic stroke NO IV TNK - beyond therapeutic window NO LVO Recommend: - ASA 325mg in the ED - Allow permissive HTN, prn for >220/120 - MRI BRAIN WO, MRI L-spine WO, ordered for Sunday12/17/23. Ativan prn prior to imaging - Further stroke work up can be pursued if stroke seen on MRI - neurochecks q.4 hours, telemetry, bedside swallow eval with diet as tolerated for known history of dysphagia (cancer related) - SCDs for VTE PPX - Neurology follow-up today Status: Acute (2) Left arm numbness: Problem details: -onset left upper extremity numbness at 9:30 a.m. 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 -patient mentioned that his PCP told him that he has a high LDL, not currently on statins. Status: Acute (4) High blood pressure: Problem details: -patient has high blood pressure readings without a diagnosis of hypertension. -for a diagnosis of hypertension patient needs to follow up with his outpatient PCP and have home readings to avoid diagnosis of white coat syndrome. Status: Acute (5) Transaminitis: Problem details: -AST noticed to be elevated at 46, not sure if it is a chronic elevation. -patient will need to follow up with his PCP for labs and possibly right upper quadrant ultrasound to evaluate for liver steatosis or any other disorder. Status: Acute (6) Hypothyroid: Problem details: -TSH 2.11. Continue levothyroxine, liothyronine. Followed by [facility] - switching to [place] Status: Chronic (7) Squamous cell carcinoma: Problem details: -p16 positive HNSCC, head and neck, diagnosis October 2014 -s/p radiosensitizing cisplatin therapy 2014. No recurrence. Followed by [facility] - switching to [place] -with dysphagia - managed with diet Status: Chronic Plan As above Time Spent With Patient Total time spent: Today I spent 50 minutes seeing the patient, reviewing Expanse and EPIC notes/diagnostics, discussing the care plan with our care time that includes social work, PT/OT, pharmacy, RT, residential and documenting my impressions and plan in the medical record. Subjective Date Seen: 12/17/23 Interval history: Patient was seen and examined at bedside today morning. Patient states that he is doing well, states that he does not feel weakness but he has numbness that improved from yesterday, he is still feeling numbness in the back of his left thigh not extending to his foot. He has intermittent bilateral feeling of numbness of his right and left ring and little fingers. No visual changes, and no issues with speech or swallowing. Exam Narrative: Exam Narrative: Physical exam GENERAL: Comfortable, no acute distress. HEAD AND NECK: Atraumatic, normocephalic CARDIOVASCULAR: RRR. Normal S1, S2. No murmurs. RESPIRATORY: Clear to auscultation B/L. Good air entry B/L. No wheezes or rhonchi. GASTROINTESTINAL: Not distended, not tender to palpation. NEUROLOGY: Alert, awake, oriented X 3. Normal speech. No focal weakness or drifting on my exam. PSYCH: Normal mood, normal affect. Const: Vital Signs, click to edit/add: Vital Signs - 24 hr 12/16/23 14:50 12/16/23 14:51 12/16/23 14:54 Temperature 97.3 F L Pulse Rate 90 92 Pulse Rate [Pulse Oximeter] 88 Pulse Rate [Right Pulse Oximeter] Respiratory Rate 18 Blood Pressure 204/121 H Blood Pressure [Ri ght Arm] Blood Pressure [Ri ght Upper Arm] 204/121 H Pulse Oximetry 96 95 95 Oxygen Delivery Me thod Room Air 12/16/23 15:08 12/16/23 15:12 12/16/23 15:15 Temperature Pulse Rate 96 88 88 Pulse Rate [Pulse Oximeter] Pulse Rate [Right Pulse Oximeter] Respiratory Rate Blood Pressure 198/114 H Blood Pressure [Ri ght Arm] Blood Pressure [Ri ght Upper Arm] Pulse Oximetry 97 95 96 Oxygen Delivery Me thod 12/16/23 15:16 12/16/23 15:22 12/16/23 15:23 Temperature Pulse Rate 89 83 85 Pulse Rate [Pulse Oximeter] Pulse Rate [Right Pulse Oximeter] Respiratory Rate Blood Pressure 180/101 H 175/103 H Blood Pressure [Ri ght Arm] Blood Pressure [Ri ght Upper Arm] Pulse Oximetry 96 94 94 Oxygen Delivery Me thod 12/16/23 15:30 12/16/23 15:31 12/16/23 15:45 Temperature Pulse Rate 80 78 75 Pulse Rate [Pulse Oximeter] Pulse Rate [Right Pulse Oximeter] Respiratory Rate 0 L Blood Pressure 169/92 H Blood Pressure [Ri ght Arm] Blood Pressure [Ri ght Upper Arm] Pulse Oximetry 94 95 96 [facility] 12/16/23 15:46 12/16/23 15:48 12/16/23 16:00 Temperature Pulse Rate 75 75 73 Pulse Rate [Pulse Oximeter] Pulse Rate [Right Pulse Oximeter] Respiratory Rate 16 Blood Pressure 188/108 H Blood Pressure [Ri ght Arm] Blood Pressure [Ri ght Upper Arm] Pulse Oximetry 96 94 95 [facility] 12/16/23 16:01 12/16/23 16:16 12/16/23 16:24 Temperature Pulse Rate 78 77 Pulse Rate [Pulse Oximeter] Pulse Rate [Right Pulse Oximeter] Respiratory Rate Blood Pressure 168/84 H 188/107 H Blood Pressure [Ri ght Arm] Blood Pressure [Ri ght Upper Arm] Pulse Oximetry 96 98 [facility] 12/16/23 16:25 12/16/23 16:30 12/16/23 16:32 Temperature Pulse Rate 75 77 73 Pulse Rate [Pulse Oximeter] Pulse Rate [Right Pulse Oximeter] Respiratory Rate Blood Pressure 185/106 H 172/96 H Blood Pressure [Ri ght Arm] Blood Pressure [Ri ght Upper Arm] Pulse Oximetry 97 95 96 Oxygen Delivery [place] thod 12/16/23 16:45 12/16/23 16:46 12/16/23 18:03 Temperature 98.0 F Pulse Rate 80 82 Pulse Rate [Pulse Oximeter] Pulse Rate [Right Pulse Oximeter] 70 Respiratory Rate 18 Blood Pressure 160/121 H Blood Pressure [Ri ght Arm] 172/97 H Blood Pressure [Ri ght Upper Arm] Pulse Oximetry 97 95 97 [facility] 12/16/23 18:18 12/16/23 19:45 12/16/23 19:48 Temperature 98 F Pulse Rate Pulse Rate [Pulse Oximeter] Pulse Rate [Right Pulse Oximeter] 78 77 77 Respiratory Rate 16 Blood Pressure Blood Pressure [Ri ght Arm] 179/105 H Blood Pressure [Ri ght Upper Arm] Pulse Oximetry 95 [facility] 12/16/23 22:19 12/16/23 23:48 12/16/23 23:48 Temperature 97.1 F L Pulse Rate Pulse Rate [Pulse Oximeter] Pulse Rate [Right Pulse Oximeter] 72 72 72 Respiratory Rate 16 16 Blood Pressure Blood Pressure [Ri ght Arm] 169/99 H Blood Pressure [Ri ght Upper Arm] Pulse Oximetry 94 Oxygen Delivery [facility] Room Air 12/16/23 23:55 12/17/23 02:31 12/17/23 02:32 Temperature 98.1 F Pulse Rate 74 Pulse Rate [Pulse Oximeter] Pulse Rate [Right Pulse Oximeter] 75 75 Respiratory Rate 16 Blood Pressure Blood Pressure [Ri ght Arm] 153/82 H Blood Pressure [Ri ght Upper Arm] Pulse Oximetry 95 Oxygen Delivery [facility] Room Air 12/17/23 08:05 12/17/23 08:07 Temperature 98.5 F Pulse Rate 70 Pulse Rate [Pulse Oximeter] Pulse Rate [Right Pulse Oximeter] 77 Respiratory Rate 18 Blood Pressure Blood Pressure [Ri ght Arm] 150/91 H Blood Pressure [Ri ght Upper Arm] Pulse Oximetry 95 Oxygen Delivery [facility] Room Air Labs Labs: Laboratory Results - last 24 hr 12/16/23 12/16/23 12/16/23 15:04 15:46 16:51 WBC 5.18 RBC 5.24 Hgb 15.7 Hct 48.0 MCV 92 MCH 30 MCHC 33 RDW Coeff of Yosvany 12.6 Plt Count 228 Neut % (Auto) 54.3 Lymph % (Auto) 25.9 Rains % (Auto) 15.3 H Eos % (Auto) 3.3 Baso % (Auto) 1.0 Neut # (Auto) 2.82 Lymph # (Auto) 1.34 Rains # (Auto) 0.80 Eos # (Auto) 0.17 Baso # (Auto) 0.05 Abs Immat Gran (auto) 0.01 Imm/Tot Granulo (auto) 0.2 Sodium 140 Potassium 3.8 Chloride 105 Carbon Dioxide 28 Anion Gap 7 BUN 23 Creatinine 1.5 Estimated Creat Clear 56.76 Estimated GFR 53 Glucose 99 Calcium 9.5 Total Bilirubin 0.4 AST 46 H ALT 36 Alkaline Phosphatase 74 Troponin I C-Reactive Protein < 0.5 L Total Protein 6.9 Albumin 4.1 TSH 2.110 Urine Color Yellow Urine Appearance Clear Urine pH 7.5 Ur Specific [place] 1.015 Urine Protein Negative Urine Glucose (UA) Negative Urine Ketones Negative Urine Blood Negative Urine Nitrite Negative Urine Bilirubin Negative Urine Urobilinogen 0.2 Ur Leukocyte Esterase Negative Urine RBC 0-2 Urine WBC 0-2 Ur Squamous Epith Cells None Urine Bacteria None SARS-CoV-2 (PCR) Negative SARS-CoV-2 Influenza Type A (PCR) Negative PCR FLU A Influenza Type B (PCR) Negative PCR FLU B RSV (PCR) Negative PCR RSV 12/16/23 12/17/23 19:41 05:47 WBC 4.35 L RBC 5.03 Hgb 14.9 Hct 46.5 MCV 92 MCH 30 MCHC 32 RDW Coeff of Yosvany Plt Count 208 Neut % (Auto) Lymph % (Auto) Rains % (Auto) Eos % (Auto) Baso % (Auto) Neut # (Auto) Lymph # (Auto) Rains # (Auto) Eos # (Auto) Baso # (Auto) Abs Immat Gran (auto) Imm/Tot Granulo (auto) Sodium 138 Potassium 4.2 Chloride 106 Carbon Dioxide 29 Anion Gap 3 L BUN 26 Creatinine 1.5 Estimated Creat Clear 56.76 Estimated GFR 53 Glucose 105 Calcium 9.4 Total Bilirubin AST ALT Alkaline Phosphatase Troponin I < 0.01 L C-Reactive Protein Total Protein Albumin TSH Urine Color Urine Appearance Urine pH Ur Specific [place] Urine Protein Urine Glucose (UA) Urine Ketones Urine Blood Urine Nitrite Urine Bilirubin Urine Urobilinogen Ur Leukocyte Esterase Urine RBC Urine WBC Ur Squamous Epith Cells Urine Bacteria SARS-CoV-2 (PCR) Influenza Type A (PCR) Influenza Type B (PCR) RSV (PCR)
[2023-12-17] MEDS: ASPIRIN 81 MG TAB.CHEW 324 MG PO (08:22)
[2023-12-17] MEDS: SODIUM CHLORIDE 0.9 % (FLUSH) 10 ML SYRINGE 5 ML IVF ×2 (10:32→22:03)
[2023-12-17] MEDS: LORazepam 2 MG/ML inj 1 MG IVP (10:32)
[2023-12-17 11:30] LABS: Cholesterol* 207 mg/dL (90-199)
[2023-12-17 11:31] LABS: HDL Cholesterol* 78 mg/dL (>=40); LDL Cholesterol Calculated 110 mg/dL (<100); Triglycerides* 93 mg/dL (40-149)
[2023-12-17] MEDS: CLOPIDOGREL 75 MG TABLET 300 MG PO (15:58)
[2023-12-17] MEDS: ATORVASTATIN 10 MG TABLET 20 MG PO (22:03)
[2023-12-17] MEDS: MELATONIN 3 MG TABLET PO (22:03)
[2023-12-18 03:14] VITALS: BP 139/83; PULSE 70; RESP 16; TEMP 36.5; O2SAT 93
[2023-12-18 03:21] VITALS: PULSE 70
--- NOTE | 2023-12-18 05:14 | PC.NURSE ---
[id number]: Patient pleasant and cooperative. Denies pain. Denies N/V/dizziness. Independent in room. PERRLA, face symmetrical, equal and strong movement to all extremities at rest. Patient reports mild LLE heaviness with ambulation but improving since admission. Eating and voiding.
[2023-12-18] MEDS: OMEPRAZOLE 20 MG CAPSULE DR PO (06:14)
[2023-12-18] MEDS: LEVOTHYROXINE 100 MCG TABLET PO (06:14)
[2023-12-18 06:44] LABS: Hematocrit 47.3 % (37.0-53.0); Hemoglobin* 15.3 gm/dL (13.5-17.5); Mean Corpuscular HGB Conc 32 gm/dL (32-36); Mean Corpuscular Hemoglobin 30 pg (26-34); Mean Corpuscular Volume 91 fL (80-100); Platelet Count* 155 K/uL (140-440); Red Blood Count 5.18 m/uL (4.30-5.90); Slide Review Reflex No
[2023-12-18 07:00] LABS: Albumin* 3.8 g/dL (3.3-5.0); Chloride* 107 mmol/L (96-114); Potassium* 3.9 mmol/L (3.6-5.1); Sodium* 138 mmol/L (135-149)
[2023-12-18 07:02] LABS: Bilirubin Total* 0.4 mg/dL (0.1-1.5); Creatinine* 1.3 mg/dL (0.5-1.5); Estimated Glomerular Filt Rate 63 ml/min
[2023-12-18 07:03] LABS: Alanine Aminotransferase* 29 U/L (4-50); Alkaline Phosphatase* 68 U/L (40-150); Anion Gap 5 mEq/L (7-15); Aspartate Amino Transferase* 32 U/L (12-35); Blood Urea Nitrogen* 23 mg/dL (7-30); Calcium* 9.5 mg/dL (8.4-10.6); Carbon Dioxide* 26 mmol/L (20-32); Glucose* 103 mg/dL (60-115); Total Protein* 6.4 g/dL (6.0-8.3)
[2023-12-18 07:55] VITALS: PULSE 80
--- NOTE | 2023-12-18 08:12 | P.IMPN_ITS ---
Progress Note: A&P Assessment and plan (1) Acute ischemic stroke: Problem details: 1) Diagnosis: Stroke Diagnosis List: Acute Ischemic stroke Acute R thalamic ischemic stroke NO IV TNK - beyond thrombolytic window NO LVO 2) Etiology: Small Vessel 3) Risk factor profile as reviewed with patient (and caregiver): High Blood Pressure 4) Pre-stroke Modified [place]: 0 5) Current Modified [place]: 2 Neuro Recommendations at discharge: Antithrombotic plan: - Start Asa 81mg daily indefinitely - Plavix 300mg today, followed by 75mg daily x 21-days and then stop Blood pressure: no permissive HTN, BP goal normotension <130/80 Extended outpatient cardiac monitoring: N/A Additional workup or follow up: none Intensive statin therapy recommendations: Intensive statin therapy recommendations LIST: No, there is no evidence of atherosclerosis. Start Lipitor 20mg daily, increase as needed, goal LDL <70 Rehabilitation interventions as indicated. Sleep Apnea: Exercise: Daily aerobic > 30 minutes as tolerated. Prevention strategies as above. Outpatient clinic follow up: Local neurologist Status: Acute (2) Hyperlipidemia: Problem details: -ordered lipid panel for evaluation. -patient mentioned that his PCP told him that he has a high LDL, not currently on statins. Status: Acute (3) High blood pressure: Problem details: -patient has high blood pressure readings without a diagnosis of hypertension. -for a diagnosis of hypertension patient needs to follow up with his outpatient PCP and have home readings to avoid diagnosis of white coat syndrome. Status: Acute (4) Transaminitis: Problem details: -AST noticed to be elevated at 46, not sure if it is a chronic elevation. -patient will need to follow up with his PCP for labs and possibly right upper quadrant ultrasound to evaluate for liver steatosis or any other disorder. Status: Acute (5) Hypothyroid: Problem details: -TSH 2.11. Continue levothyroxine, liothyronine. Followed by [facility] - switching to [place] Status: Chronic (6) Squamous cell carcinoma: Problem details: -p16 positive HNSCC, head and neck, diagnosis October 2014 -s/p radiosensitizing cisplatin therapy 2014. No recurrence. Followed by [facility] - switching to [place] -with dysphagia - managed with diet Status: Chronic Subjective Interval history: Patient was seen and examined at bedside today morning. Patient states that he is doing well, states that he does not feel weakness but he has numbness that improved from yesterday, he is still feeling numbness in the back of his left thigh not extending to his foot. He has intermittent bilateral feeling of numbness of his right and left ring and little fingers. No visual changes, and no issues with speech or swallowing. Exam Const: Vital Signs, click to edit/add: Vital Signs - 24 hr 12/17/23 15:28 12/17/23 16:02 12/17/23 20:00 Temperature 97.7 F 97.9 F Pulse Rate 76 Pulse Rate [Right Pulse Oximeter] 74 80 Respiratory Rate 16 16 Blood Pressure [Ri ght Arm] 154/89 H 150/98 H Pulse Oximetry 95 96 Oxygen Delivery Me thod Room Air Room Air 12/17/23 20:02 12/17/23 22:09 12/17/23 22:30 Temperature 97.9 F Pulse Rate Pulse Rate [Right Pulse Oximeter] 80 71 71 Respiratory Rate Blood Pressure [Ri ght Arm] 162/106 H Pulse Oximetry 96 Oxygen Delivery Me thod Room Air 12/17/23 23:00 12/18/23 03:14 12/18/23 03:21 Temperature 97.7 F Pulse Rate 70 Pulse Rate [Right Pulse Oximeter] 70 70 Respiratory Rate 16 Blood Pressure [Ri ght Arm] 139/83 Pulse Oximetry 93 Oxygen Delivery Me thod Room Air Labs Labs: Laboratory Results - last 24 hr 12/17/23 12/18/23 11:01 06:21 WBC 4.40 L RBC 5.18 Hgb 15.3 Hct 47.3 MCV 91 MCH 30 MCHC 32 Plt Count 155 Sodium 138 Potassium 3.9 Chloride 107 Carbon Dioxide 26 Anion Gap 5 L BUN 23 Creatinine 1.3 Estimated Creat Clear 65.50 Estimated GFR 63 Glucose 103 Calcium 9.5 Total Bilirubin 0.4 AST 32 ALT 29 Alkaline Phosphatase 68 Total Protein 6.4 Albumin 3.8 Triglycerides 93 Cholesterol 207 H LDL Cholesterol, Calc 110 H HDL Cholesterol 78
[2023-12-18 08:33] VITALS: BP 165/103; PULSE 78; RESP 16; TEMP 37.1; O2SAT 96
[2023-12-18] MEDS: ASPIRIN 81 MG TABLET EC PO (08:35)
[2023-12-18] MEDS: CLOPIDOGREL 75 MG TABLET PO (08:35)
--- NOTE | 2023-12-18 11:10 | PC.SOCIAL ---
Social work hospitality intern completed discharge planning assessment with pt. Pt has not been admitted to any hospital in the last 30 days and is his own decision maker. He is not requesting resources or additional services at this moment. 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 No mental health needs were identified at this time. Pt is ready to discharge. Social work to follow up if needed.
--- NOTE | 2023-12-18 12:24 | P.DS_ITS ---
DS: Providers Provider Date Seen: 12/18/23 Date of admission: 12/17/23 14:37 Primary care physician: Leighann Hudson NP Admitting Clinician: Samantha Suarez MD Consults: 12/16/23 17:22 Consult to Occupational Therapy [CONS] Routine Comment: Reason(s) for OT Consult:: Evaluate and Treat Any Restrictions?:: No Restrictions Consult to Physical Therapy [CONS] Routine Comment: Reason(s) for PT Consult:: Evaluate and Treat Any Restrictions?:: No Restrictions Attending Physician on discharge: Lola Vega MD DS: Diagnosis Discharge Diagnosis (1) Acute ischemic stroke: Status: Acute Problem details: 1) Diagnosis: Stroke Diagnosis List: Acute Ischemic stroke Acute R thalamic ischemic stroke NO IV TNK - beyond thrombolytic window NO LVO 2) Etiology: Small Vessel 3) Risk factor profile as reviewed with patient (and caregiver): High Blood Pressure 4) Pre-stroke Modified [place]: 0 5) Current Modified [place]: 2 Neuro Recommendations at discharge: Antithrombotic plan: - Start Asa 81mg daily indefinitely - Plavix 300mg today, followed by 75mg daily x 21-days and then stop Blood pressure: no permissive HTN, BP goal normotension <130/80 Extended outpatient cardiac monitoring: N/A Additional workup or follow up: none Intensive statin therapy recommendations: Intensive statin therapy recommendations LIST: No, there is no evidence of atherosclerosis. Start Lipitor 20mg daily, increase as needed, goal LDL <70 Rehabilitation interventions as indicated. Sleep Apnea: Exercise: Daily aerobic > 30 minutes as tolerated. Prevention strategies as above. Outpatient clinic follow up: Local neurologist (2) Transaminitis: Status: Acute Problem details: -AST noticed to be elevated at 46, not sure if it is a chronic elevation. -patient will need to follow up with his PCP for labs and possibly right upper quadrant ultrasound to evaluate for liver steatosis or any other disorder. (3) High blood pressure: Status: Acute Problem details: -patient has high blood pressure readings without a diagnosis of hypertension. -for a diagnosis of hypertension patient needs to follow up with his outpatient PCP and have home readings to avoid diagnosis of white coat syndrome. (4) Hyperlipidemia: Status: Acute Problem details: -ordered lipid panel for evaluation. -patient mentioned that his PCP told him that he has a high LDL, not currently on statins. (5) Squamous cell carcinoma: Status: Chronic Problem details: -p16 positive HNSCC, head and neck, diagnosis October 2014 -s/p radiosensitizing cisplatin therapy 2014. No recurrence. [facility] by [facility] -with dysphagia - managed with diet (6) Hypothyroid: Status: Chronic Problem details: -TSH 2.11. Continue levothyroxine, liothyronine. Followed by [facility] (7) Lumbar spondylosis: Status: Acute Problem details: -lumbar spine MRI: Impression: 1. Lumbar spondylosis as detailed. 2. At L4-L5, moderate left neural foraminal stenosis and mild spinal canal narrowing with left lateral recess stenosis, potentially impinging the descending left L5 nerve root. 3. At L5-S1, moderate bilateral neural foraminal stenosis, with mild spinal canal narrowing and right lateral recess stenosis, potentially impinging the descending right S1 nerve root. -follow-up with Neurology as an outpatient. DS: Summary Hospital Course Hospital Course: A 63-year-old male patient with past medical history of hypothyroidism and hyperlipidemia, suspected hypertension who presents with left-sided weakness. CT head and CTA neck were negative but his brain MRI showed acute R thalamic ischemic stroke. IV TNK was not given as patient was beyond thrombolytic window. No indication for thrombectomy as patient does not have LVO. Patient will need an echo done to rule out cardioembolic causes of his stroke. Patient was started on Asa 81mg daily indefinitely and on Lipitor 20mg daily. In addition, Neurology recommended Plavix 300mg wants, followed by 75mg daily x 21- days and then stop. Patient will need PT/OT as an outpatient. He needs to follow up with his PCP and Neurology for follow-up. NB: Patient had lumbar spine MRI done too and it showed lumbar spondylosis. Status at Discharge Functional status at discharge: independent ambulation Time Spent with Patient Time attestation: Total time spent providing and/or coordinating discharge services: 50 min Exam Narrative: Exam Narrative: GENERAL: Comfortable, no acute distress. HEAD AND NECK: Atraumatic, normocephalic CARDIOVASCULAR: RRR. Normal S1, S2. No murmurs. RESPIRATORY: Clear to auscultation B/L. Good air entry B/L. No wheezes or rhonchi. GASTROINTESTINAL: Not distended, not tender to palpation. NEUROLOGY: Alert, awake, oriented X 3. Normal speech. No drifting on my exam, mild weakness of Lt LE (motor fxn: 4/5). PSYCH: Normal mood, normal affect. Const: Vital Signs, click to edit/add: Vital Signs - 24 hr 12/17/23 15:28 12/17/23 16:02 12/17/23 20:00 Temperature 97.7 F 97.9 F Pulse Rate 76 Pulse Rate [Right Pulse Oximeter] 74 80 Respiratory Rate 16 16 Blood Pressure [Ri ght Arm] 154/89 H 150/98 H Pulse Oximetry 95 96 Oxygen Delivery Me thod Room Air Room Air 12/17/23 20:02 12/17/23 22:09 12/17/23 22:30 Temperature 97.9 F Pulse Rate Pulse Rate [Right Pulse Oximeter] 80 71 71 Respiratory Rate Blood Pressure [Ri ght Arm] 162/106 H Pulse Oximetry 96 Oxygen Delivery Me thod Room Air 12/17/23 23:00 12/18/23 03:14 12/18/23 03:21 Temperature 97.7 F Pulse Rate 70 Pulse Rate [Right Pulse Oximeter] 70 70 Respiratory Rate 16 Blood Pressure [Ri ght Arm] 139/83 Pulse Oximetry 93 Oxygen Delivery Me thod Room Air 12/18/23 07:55 12/18/23 08:33 Temperature 98.7 F Pulse Rate 80 Pulse Rate [Right Pulse Oximeter] 78 Respiratory Rate 16 Blood Pressure [Ri ght Arm] 165/103 H Pulse Oximetry 96 Oxygen Delivery Me thod Room Air DS: Data Data Completed and Pending Pending studies at discharge: Echo/ echo report Labs on day of discharge: Labs from last 24 hours 12/18/23 06:21 WBC 4.40 L RBC 5.18 Hgb 15.3 Hct 47.3 MCV 91 MCH 30 MCHC 32 Plt Count 155 Sodium 138 Potassium 3.9 Chloride 107 Carbon Dioxide 26 Anion Gap 5 L BUN 23 Creatinine 1.3 Estimated Creat Clear 65.50 Estimated GFR 63 Glucose 103 Calcium 9.5 Total Bilirubin 0.4 AST 32 ALT 29 Alkaline Phosphatase 68 Total Protein 6.4 Albumin 3.8 Imaging MR Brain: Radiologist's impression: Technique: Multiplanar, multisequence MRI of the brain obtained without contrast. Comparison: CT head and CTA head/neck 12/16/2023 Findings: There is a small area of mildly restricted diffusion in the region of the right posterior limb internal capsule. No hemorrhagic transformation, midline shift, hydrocephalus or herniation. White matter signal is unremarkable. Partially empty sella configuration. Grossly preserved major expected intracranial flow voids. Age-appropriate bone marrow signal. No obstructive paranasal sinus disease or mastoid effusion. Unremarkable orbits. Impression: 1. Small acute/subacute lacunar infarct involving the posterior limb of the right internal capsule. 2. No hemorrhagic transformation. Otherwise unremarkable MRI brain. Dictated by Birdie Gonzalez MD @ 12/17/2023 12:46:08 PM ----- ADDENDUM ----- Exam report was faxed, with confirmation of receipt by Dr. Vega at 12:49 p.m. on 12/17/2023. Dictated by Birdie Gonzalez MD @ Dec 17 2023 12:53PM (Electronically Signed) For Patients: As a result of the Cures Act, medical imaging exams and procedure reports are released immediately into your electronic medical record. You may view this report before your referring provider. If you have questions, please contact your health care provider. Indication: Left leg weakness Technique: Multiplanar, multisequence MRI of the brain obtained without contrast. Comparison: CT head and CTA head/neck 12/16/2023 Findings: There is a small area of mildly restricted diffusion in the region of the right posterior limb internal capsule. No hemorrhagic transformation, midline shift, hydrocephalus or herniation. White matter signal is unremarkable. Partially empty sella configuration. Grossly preserved major expected intracranial flow voids. Age-appropriate bone marrow signal. No obstructive paranasal sinus disease or mastoid effusion. Unremarkable orbits. Impression: 1. Small acute/subacute lacunar infarct involving the posterior limb of the right internal capsule. 2. No hemorrhagic transformation. Otherwise unremarkable MRI brain. Dictated by Birdie Gonzalez MD @ 12/17/2023 12:46:08 PM MR - Other: Radiologist's impression: Technique: Multiplanar, multisequence, MRI of the lumbar spine, obtained without contrast. Comparison: No relevant comparison studies available at this institution. Findings: The normal lumbar lordosis is preserved. Trace degenerative retrolisthesis at L2-3, anterolisthesis at L4-5. No acute osseous abnormality. Degenerative Schmorl`s nodes at the L2 inferior endplate. Small intraosseous hemangioma within the L3 vertebral body. No suspicious bone marrow lesion. Conus medullaris terminates at L1-L2. Small cystic foci are noted within the right hepatic lobe. No concerning findings identified in the paraspinal soft tissues. Included SI joints are unremarkable. T12-L1: No neural foraminal or spinal canal stenosis. L1-L2: Mild diffuse disc bulge. No right, mild left neural foraminal narrowing. No spinal canal stenosis. L2-L3: Mild diffuse disc bulge. Mild bilateral neural foraminal narrowing. No spinal canal stenosis. L3-L4: Mild diffuse disc bulge, right foraminal annular fissure, mild facet arthropathy. No right, mild left neural foraminal narrowing. No spinal canal stenosis. L4-L5: Mild diffuse disc bulge, moderate left asymmetric facet arthropathy and small facet joint effusion. Mild right, moderate left neural foraminal stenosis. Mild spinal canal narrowing with left lateral recess stenosis potentially impinging the descending left L5 nerve root. L5-S1: Diffuse disc bulge, moderate facet arthropathy. Moderate bilateral neural foraminal stenosis. Mild spinal canal narrowing with right lateral recess stenosis and potential descending right S1 nerve root impingement. Impression: 1. Lumbar spondylosis as detailed. 2. At L4-L5, moderate left neural foraminal stenosis and mild spinal canal narrowing with left lateral recess stenosis, potentially impinging the descending left L5 nerve root. 3. At L5-S1, moderate bilateral neural foraminal stenosis, with mild spinal canal narrowing and right lateral recess stenosis, potentially impinging the descending right S1 nerve root. Discharge Plan Discharge Disposition: Home, Self-Care Date of Admission: 12/17/23 14:37 Attending Provider on Discharge: Lola Vega Primary Care Provider: Leighann Hudson Condition: Unchanged Anticipated Discharge Date/Time: 12/18/23 16:00 Discharge Medications: New polyethylene glycol 3350 [Miralax] 17 gram Powder In Packet 17 g PO DAILY PRN7 Days Qty: 7 0RF atorvastatin 10 mg Tablet 20 mg PO HS 30 Days Qty: 60 0RF clopidogrel 75 mg Tablet 75 mg PO DAILY 20 Days Qty: 20 0RF aspirin 81 mg Tablet,Delayed Release (Dr/Ec) 81 mg PO DAILY Qty: 30 0RF Continued Zyrtec 10 mg capsule 10 mg PO DAILY PRN levothyroxine 100 mcg capsule 100 mcg PO DAILY liothyronine 5 mcg tablet 5 mcg PO QDAY Discharge Orders: Discharge Order (Routine); Ordered 12/18/23 Ordered By: Lola Vega Patient Education: Stroke (GEN) Additional Instructions: Follow-up with neurology as an outpatient. Follow-up with primary care physician to confirm a diagnosis of hypertension. You will need baby aspirin and cholesterol medication indefinitely. You need to take Plavix 75 mg once daily for a total of 21 days and then stop. You need physical therapy as an outpatient. You will need assessment for ability to drive as an outpatient. Activity Level: Activity as Tolerated Discharge Diet: Low Fat/Low Cholesterol Follow Up Appointments: Kenzie Thomas MD [Referring] - Leighann Hudson NP [Primary Care Provider] - Forms: [employer] Info Instructions
[2023-12-18 15:00] VITALS: BP 134/88; PULSE 86; RESP 18; TEMP 36.6; O2SAT 97
[2023-12-18 17:00] VITALS: PULSE 86
--- NOTE | 2023-12-18 17:47 | PC.NURSE ---
Nursing discharge note: Pt has been A&O, afebrile and VSS on day of discharge. Elevated BP improved with medication. Pt is independent & frequently walking the halls. Denies pain, nausea or dizziness. Neuro assessments have been unremarkable, pt reports near baseline & stroke symptoms significantly improving. ECHO done this afternoon, reviewed prelim results. PIV removed from right hand, catheter intact. Discharge instructions reviewed with patient and his who both verbalized understanding. Pt discharged at 1705 via ambulatory accompanied by his .
== END 2023-12-18 17:05 | disposition home or self-care (01) | DRG 65 ==
LOC: ED 16:58 → MEDSURG 17:17
PROVIDERS: Student in an Organized Health Care Education/Training Program; Admitting Provider Physician Assistant; Emergency Provider Family Medicine; PCP Nurse Practitioner Gerontology; Visit Provider Family Medicine
DX: I63.81 Other cerebral infarction due to occlusion or stenosis of small artery (principal); G81.94 Hemiplegia, unspecified affecting left nondominant side; R03.0 Elevated blood-pressure reading, without diagnosis of hypertension; R74.01 Elevation of levels of liver transaminase levels; M47.816 Spondylosis without myelopathy or radiculopathy, lumbar region; M48.061 Spinal stenosis, lumbar region without neurogenic claudication; E03.9 Hypothyroidism, unspecified; E78.5 Hyperlipidemia, unspecified; Z85.89 Personal history of malignant neoplasm of other organs and systems; Z96.641 Presence of right artificial hip joint
CPT/HCPCS: 36415; 70450; 70496; 70498; 70551; 72148; 80048; 80053; 80061; 81001; 82962; 84443; 84484; 85025; 85027; 86140; 87631; 93005; 93306; 96374; 97161; 97165; 99284; 99285; 99291; G0378; A9270; J2060; Q9967

== ENCOUNTER 2024-01-02 22:36 | Emergency (ER) | payer OTHER, SELFPAY ==
[2024-01-02] VITALS (7 sets, daily range): BP systolic 149–150; BP diastolic 94–95; PULSE 71–79; RESP 16; TEMP 36.1; O2SAT 95–98
--- NOTE | 2024-01-02 22:45 | CRLHL7_ITS ---
For Patients: As a result of the Century Cures Act, medical imaging exams and procedure reports are released immediately into your electronic medical record. You may view this report before your referring provider. If you have questions, please contact your health care provider. INDICATION: Flashes of light, discoordination. TECHNIQUE: CT head without contrast. COMPARISON: Brain MRI 12/17/2023. FINDINGS: Brain parenchyma, CSF spaces, and extra-axial spaces: Partially empty sella. The known subacute lacunar infarct within the right internal capsule posterior limb is not clearly visualized on this exam. The vazquez-white differentiation is normal. No sign of mass, hemorrhage, or midline shift. No hydrocephalus. No extra-axial fluid collection. Skull base and calvarium: The visualized paranasal sinuses demonstrate no acute or significant findings. The mastoid air cells are clear. The visualized orbits are grossly unremarkable. No skull fracture. IMPRESSION: No evidence of an acute intracranial abnormality. Please note that all CT scans at this facility use dose modulation, iterative reconstruction, and/or weight-based dosing when appropriate to reduce radiation dose to as low as reasonably achievable. Dictated by Misbah Engle MD @ 01/02/2024 11:12:16 PM (Electronically Signed)
--- NOTE | 2024-01-02 22:46 | ED.GENADULT ---
HPI - General Adult General Chief complaint: Neuro Symptoms/Altered Deficit Stated complaint: possible stroke Time Seen by Provider: 01/02/24 22:45 History of Present Illness HPI narrative: hx of a stroke 2 and a half weakness with minor left sided weakness, patient on Plavix. tonight about 50 minutes ago started having some flashes in R vision visual disturbance denies loss of vision. some balance issues while walking in. no current dizziness or light headed 63-year-old man presenting to the emergency department with supportive partner with concern of potential stroke. On our prior to this interview at rest when had 3 flashes of light in the right visual field. Not associated with headache but he says he constantly has headaches indicating muscle tension related and occipital area headaches. Did not appreciate any weakness but apparently stumbled on the stairs and seemed to otherwise have some trouble with balance on his way in. Not feeling dizzy or lightheaded. No loss of vision. Was seen early December with an MRI showing a small acute/subacute lacunar infarct in the posterior limb of the right internal capsule. He has continued on Plavix since that time. CTA day prior showed mild atherosclerotic stenosis of bilateral proximal ICAs. I believe did have relatively recent normal eye exam Related Data Home Medications ?Medication ?Instructions ?Recorded ?Confirmed cetirizine 10 mg capsule (Zyrtec) 10 mg PO DAILY PRN 03/06/22 01/02/24 levothyroxine 100 mcg capsule 100 mcg PO DAILY 03/06/22 01/02/24 liothyronine 5 mcg tablet 5 mcg PO QDAY 03/06/22 01/02/24 Previous Rx's ?Medication ?Instructions ?Recorded aspirin 81 mg tablet,delayed 81 mg PO DAILY #30 tabs 12/18/23 release atorvastatin 10 mg tablet 20 mg (2 x 10 mg) PO HS 30 days 12/18/23 #60 tabs clopidogrel 75 mg tablet 75 mg PO DAILY 20 days #20 tabs 12/18/23 polyethylene glycol 3350 17 gram 17 g PO DAILY PRN 7 days #7 ea 12/18/23 oral powder packet (Miralax) Allergies Allergy/AdvReac Type Severity Reaction Status Date / Time hydrocodone Allergy itch Verified 12/16/23 15:07 Review of Systems Status of ROS: Reports: 6 or more systems reviewed and unremarkable except as noted in History and below [facility] Medical History Hyperlipidemia ?E78.5 - Hyperlipidemia, unspecified (ICD-10) History of gastrostomy tube placement Squamous cell carcinoma Arthritis ?M19.90 - Unspecified osteoarthritis, unspecified site (ICD-10) Hypothyroid ?E03.9 - Hypothyroidism, unspecified (ICD-10) Surgical History History of tonsillectomy ?Z90.89 - Acquired absence of other organs (ICD-10) History of right hip replacement ?Z96.641 - Presence of right artificial hip joint (ICD-10) H/O hernia repair ?Z98.890 - Other specified postprocedural states (ICD-10) ?Z87.19 - Personal history of other diseases of the digestive system (ICD-10) Social History What is your current living situation?: I presently have a place to live Problems where you live: no known problems Problems where you live details: none In the past 12 months, utilities in danger of being shut off: no In the past 12 mos, have been you worried that your food would run out before you had money to buy more?: never true In the past 12 mos, the food you bought just didn't last and you didn't have money to buy more?: never true Smoking Status: Never smoker How often do you have a drink containing alcohol: 2-3 times a week Alcohol type: hard liquor How often do you have six or more drinks on one occasion: Weekly AUDIT-C Alcohol total score: 6 Non-prescribed substance use: denies use How often does anyone, including family, friends and others, physically hurt you: never How often does anyone, including family, friends and others, insult or talk down to you: never How often does anyone, including family, friends and others, threaten you with harm: never How often does anyone, including family, friends and others, scream or curse at you: never service: Yes Exam Narrative: Exam Narrative: Bespectacled. Pleasant. NAD. Conversing easily. Fluidly. Cranial nerves 2-12 intact. Pupils are brisk and appropriately reactive, accommodating. Moving all extremities without difficulty. Full strength throughout. Heart in regular rate and rhythm without murmur or gallop. Is breathing easily. No sensory loss apparent. Funduscopic exam is difficult but looks unremarkable. Const: Vital Signs, click to edit/add: Vital Signs - 24 hr 01/02/24 22:41 01/02/24 22:43 01/02/24 22:44 Temperature 97 F L Pulse Rate 78 76 Pulse Rate [Pulse Oximeter] 76 Respiratory Rate 16 16 Blood Pressure 150/94 H Blood Pressure [Ri ght Upper Arm] 150/94 H Pulse Oximetry 98 95 95 Oxygen Delivery Me thod Room Air 01/02/24 22:45 01/02/24 23:00 01/02/24 23:05 Temperature Pulse Rate 79 74 74 Pulse Rate [Pulse Oximeter] Respiratory Rate 16 Blood Pressure 149/95 H Blood Pressure [Ri ght Upper Arm] Pulse Oximetry 97 95 95 Oxygen Delivery Me thod 01/02/24 23:15 Temperature Pulse Rate 71 Pulse Rate [Pulse Oximeter] Respiratory Rate Blood Pressure Blood Pressure [Ri ght Upper Arm] Pulse Oximetry 95 Oxygen Delivery Me thod Documenting provider has reviewed patient's vital signs: yes Course Vital Signs Vital signs: Initial Vital Signs Temperature 97 F L 01/02/24 22:41 Temperature Source Temporal Artery Scan 01/02/24 22:41 Pulse Rate 76 01/02/24 22:41 Pulse Rhythm Regular 01/02/24 22:41 Respiratory Rate 16 01/02/24 22:41 Blood Pressure 150/94 H 01/02/24 22:41 Blood Pressure Mean 112 H 01/02/24 22:41 Blood Pressure Position Supine 01/02/24 22:41 Pulse Oximetry 98 01/02/24 22:41 Oxygen Delivery Method Room Air 01/02/24 22:41 Vital Signs Temperature 97 F L 01/02/24 22:41 Pulse Rate 76 01/02/24 22:41 Respiratory Rate 16 01/02/24 22:41 Blood Pressure 150/94 H 01/02/24 22:41 Pulse Oximetry 98 01/02/24 22:41 Oxygen Delivery Method Room Air 01/02/24 22:41 Temperature 97 F L 01/02/24 22:41 Pulse Rate 71 01/02/24 23:15 Respiratory Rate 16 01/02/24 23:05 Blood Pressure 149/95 H 01/02/24 23:05 Pulse Oximetry 95 01/02/24 23:15 Oxygen Delivery Method Room Air 01/02/24 22:41 Medical Decision Making MDM Narrative Medical decision making narrative: This certainly may have been a retinal issue. Underlying history of headaches but this would be atypical. Unclear whether not this might be related to stroke/TIA. Description of discoordination perhaps is most concerning symptom with regard to stroke. No peripheral symptoms and no weakness otherwise. EKG reviewed by me shows normal sinus rhythm rate of 74. Would do a CT scan of the head a particularly as now taking Plavix looking for any potential bleed. No interventions I would think would be necessary at this time given near full resolution of symptoms. Might like to test ambulatory ability. Will check with Stroke Neuro for further recommendations. I did independently review CT head. No evidence of acute abnormality per my read. Initial conversation with Stroke Neuro. Also suspecting retinal issue or at most TIA. Pending further conversation No further events during time in the emergency department. TECHNIQUE: CT head without contrast. COMPARISON: Brain MRI 12/17/2023. FINDINGS: Brain parenchyma, CSF spaces, and extra-axial spaces: Partially empty sella. The known subacute lacunar infarct within the right internal capsule posterior limb is not clearly visualized on this exam. The vazquez-white differentiation is normal. No sign of mass, hemorrhage, or midline shift. No hydrocephalus. No extra-axial fluid collection. Skull base and calvarium: The visualized paranasal sinuses demonstrate no acute or significant findings. The mastoid air cells are clear. The visualized orbits are grossly unremarkable. No skull fracture. IMPRESSION: No evidence of an acute intracranial abnormality. Reviewed again with Stroke Neuro. At this time out intracranial problem and not recommending any further imaging or cares other than to continue current treatment and potential follow-up with eye clinic See patient discharge plan for further discussion Continue to take your aspirin, Plavix, atorvastatin. Return for persistent and focal weakness, loss of vision, severe headache. Consider being seen in eye clinic for a check this coming week. Medical Records Medical records reviewed: Yes I reviewed the patient's medical records ECG Data Attestation: I personally reviewed and interpreted this ECG as follows: (Normal sinus rhythm. Rate of 74 without ischemic changes) Discharge Plan Discharge Clinical Impression: Visual disturbance Patient Disposition: Home w/ Parent or Adult Condition: Improved Additional Instructions: Continue to take your aspirin, Plavix, atorvastatin. Return for persistent and focal weakness, loss of vision, severe headache. Consider being seen in eye clinic for a check this coming week. Prescriptions: No Action Zyrtec 10 mg capsule 10 mg PO DAILY PRN levothyroxine 100 mcg capsule 100 mcg PO DAILY liothyronine 5 mcg tablet 5 mcg PO QDAY polyethylene glycol 3350 [Miralax] 17 gram Powder In Packet 17 g PO DAILY PRN7 Days Qty: 7 0RF atorvastatin 10 mg Tablet 20 mg PO HS 30 Days Qty: 60 0RF clopidogrel 75 mg Tablet 75 mg PO DAILY 20 Days Qty: 20 0RF aspirin 81 mg Tablet,Delayed Release (Dr/Ec) 81 mg PO DAILY Qty: 30 0RF Follow Up/Referrals: Leighann Hudson NP [Primary Care Provider] - Stand Alone Forms: [employer] Info Instructions
--- OUTSIDE RECORDS SUMMARY | 2024-01-02 23:05 | XMS_ITS | Continuity of Care Document ---
Author Name [facility] Organization [facility] Care Team Providers Care [employer] Consultant Name Role Phone [facility] Unavailable Unavailable Problems Combined list of problems [...] / on the skin Inactive 015 Condition [facility] visit for: administrative purpose Inactive 009 Condition DoD Adjustment disorder with depressed mood Active Condition [facility] Cervicalgia Active Condition [place] [facility] CVA - cerebrovascular accident due to cerebral artery occlusion Active Condition Dec 25, 2023 Entered By: KATELYN PATTON Comment: 12/2023- small R ischemic stroke, started ASA and Atorvastatim , Plavix 21 days [facility] Exposure to potentially hazardous substance ([facility] [id number]) Active Condition Dec 03 Entered By: PHUC ADAMS Comment: Entered automatically through [facility] Problem List documentation program [facility] Family social history Active Condition June 27, 2023 Entered By: KATELYN PATTON Comment: 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 [place] Entered By: KATELYN PATTON Comment: tobacco- noneMay 2023 Entered By: KATELYN PATTON Comment: alcohol- 2-4 drinks/ weekMa2023 Entered By: KATELYN PATTON Comment: illicit drug- noneMay 2023 Entered By: KATELYN PATTON Comment: lives with son and 2 dogsMa2023 Entered By: KATELYN PATTON Comment: currently going through divorceMay 2023 Entered By: KATELYN PATTON Comment: father- with prostate CA and renal CAMay 2023 Entered By: KATELYN PATTON Comment: Mother- breast CA , with CHFMa2023 Entered By: KATELYN PATTON Comment: older sister- bladder cancerMay 2023 Entered By: KATELYN PATTON Comment: older sister-2 - heart attackMa2023 Entered By: KATELYN PATTON Comment: hernia repair- 2023 Entered By: KATELYN PATTON Comment: right hip replacement- 2023 Entered By: KATELYN PATTON Comment: tonsilectomy- 2020 [facility] Gastroesophageal reflux disease Active Condition [facility] History of right hip replacement Active Condition [facility] Hypothyroidism Active Condition [facility] Iatrogenic hypothyroidism Active Condition [facility] Mallet finger Active Condition June Entered By: KATELYN PATTON Comment: Mallet finger of right hand [facility] 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 June 27, 2023 Entered By: KATELYN PATTON Comment: 04/10/2022- EGD and biopsy done- result- gastric mucosa with reactive gastropathy and focal intestinal metaplasia [facility] Pain in right shoulder Active Condition DoD Other specified health status Active Condition DoD Pain in unspecified knee Active Condition DoD Cough Active Condition DoD Encounter for antineoplastic radiation therapy Active Condition DoD refractive error - myopia Active Condition DoD presbyopia Active Condition DoD visit: ears/hearing exam for hearing conservation, treatment Inactive Condition DoD assessment of patient condition work-related Active Condition DoD acute reaction to stress Inactive Condition DoD visit for: services flight physical Inactive Condition DoD Audiologic Impedance Testing Inactive Condition DoD Anthrax Vaccine, For Subcutaneous Use Inactive Condition DoD Need For Vaccination Against Influenza Inactive Condition DoD visit for: ears / hearing exam Inactive Condition DoD visit for: services physical Active Condition DoD Diagnosis: ICD-10-CM I63.9 Cerebral infarction, unspecified Active Diagnosis [facility] Diagnosis: ICD-10-CM I63.50 Cereb infrc due to unsp occls or stenos of unsp cereb artery Active Diagnosis [facility] Diagnosis: ICD-10-CM M25.512 Pain in left shoulder Active Diagnosis [facility] Diagnosis: ICD-10-CM G89.29 Other chronic pain Active Diagnosis MEGHAN ANDERSON [facility] Diagnosis: ICD-10-CM C76.0 Malignant neoplasm of head, face and neck Active Diagnosis [facility] Diagnosis: ICD-10-CM Z23 Encounter for immunization Active Diagnosis [facility] Diagnosis: ICD-10-CM E89.0 Postprocedural hypothyroidism Active Diagnosis ENMANUEL Garcia [facility] Diagnosis: ICD-10-CM F43.21 Adjustment disorder with depressed mood Active Diagnosis [facility] Medications Combined list of outpatient medications from Department of Defense and Veterans Affairs facilities.Medications provided include 1) outpatient medications from the last 15 months, and 2) patient-reported medications. Medication Details Route Status Patient Instructions Prescription Expires Prescription Number Last Dispense Date Ordering Provider Order Date Order Qty Source ASPIRIN 81MG TAB,EC TAKE ONE TABLET BY MOUTH ORAL ACTIVE NAWAF PATTON 2023 [facility] ATORVASTATI N CA 20MG TAB TAKE ONE TABLET BY MOUTH AT BEDTIME FOR CHOLESTE ROL ORAL ACTIVE 12/25/2024 [id number] 4 NAWAF PATTON 2023 90 [facility] CETIRIZINE HCL 10MG TAB TAKE ONE TABLET BY MOUTH EVERY MORNING FOR ALLERGIE S ORAL SUSPEND ED 12/25/2024 [id number] 4 NAWAF PATTON 2023 90 [facility] CETIRIZINE HCL 10MG TAB TAKE ONE TABLET BY MOUTH EVERY MORNING FOR ALLERGIE S ORAL DISCONT INUED 06/27/2024 [id number] 4 NAWAF PATTON 2023 90 [facility] LEVOTHYROXI NE NA 100MCG TAB (SYNTHROID) TAKE ONE TABLET BY MOUTH EVERY DAY FOR THYROID ORAL SUSPEND ED 12/25/2024 [id number] 5 NAWAF PATTON 2024 90 [facility] LEVOTHYROXI NE NA 100MCG TAB (SYNTHROID) TAKE ONE TABLET BY MOUTH EVERY DAY FOR THYROID ORAL DISCONT INUED 06/27/2024 [id number] 4 NAWAF PATTON 2023 90 [facility] LEVOTHYROXI NE SODIUM (levothyrox ine sodium), 100 MCG, TABLET, ORAL, AMNEAL PHARMACE, 100 ea. BOTTLE Cancele d [id number] : 2023 0 Pharmac y [facility] Facilit y LIOTHYRONIN E NA 5MCG TAB TAKE ONE TABLET BY MOUTH EVERY MORNING FOR THYROID ORAL ACTIVE 12/25/2024 [id number] 4 NAWAF PATTON 2023 90 [facility] LIOTHYRONIN E NA 5MCG TAB TAKE ONE TABLET BY MOUTH EVERY MORNING FOR THYROID ORAL DISCONT INUED 06/27/2024 [id number] 4 NAWAF PATTON 2023 90 [facility] MULTIVITAMI NS CAP/TAB TAKE ONE TABLET BY MOUTH EVERY DAY ORAL ACTIVE ADEBAYO BONDS 2016 [place] [facility] OMEPRAZOLE 20MG CAP,EC TAKE ONE CAPSULE BY MOUTH EVERY DAY NEEDED FOR HEARTBUR N - TAKE ON EMPTY STOMACH ORAL SUSPEND ED 12/25/2024 [id number] 4 NAWAF PATTON 2023 45 [facility] OMEPRAZOLE 20MG CAP,EC TAKE ONE CAPSULE BY MOUTH EVERY DAY NEEDED FOR HEARTBUR N - TAKE ON EMPTY STOMACH ORAL DISCONT INUED 06/27/2024 [id number] 4 NAWAF PATTON 2023 45 [facility] ONDANSETRON HCL 4MG TAB,ORALLY DISINTEGRAT ING DISSOLVE ONE TABLET BY MOUTH EVERY MORNING NEEDED FOR NAUSEA AND VOMITING ACTIVE 12/25/2024 [id number] 4 NAWAF PATTON 2023 30 [facility] ONDANSETRON HCL 4MG TAB,ORALLY DISINTEGRAT ING DISSOLVE ONE TABLET BY MOUTH EVERY MORNING NEEDED FOR NAUSEA AND VOMITING SUBLIN GUAL DISCONT INUED 06/27/2024 [id number] 4 NAWAF PATTON 2023 30 [facility] TAMSULOSIN HCL 0.4MG CAP TAKE ONE CAPSULE BY MOUTH EVERY MORNING FOR URINARY SYMPTOMS ORAL SUSPEND ED 12/25/2024 [id number] 4 NAWAF PATTON 2023 90 [facility] TAMSULOSIN HCL 0.4MG CAP TAKE ONE CAPSULE BY MOUTH EVERY MORNING FOR URINARY SYMPTOMS ORAL DISCONT INUED 06/27/2024 [id number] 4 NAWAF PATTON 2023 90 [facility] Allergies, Adverse Reactions, Alerts Combined list of allergies from Department of [facility] and [facility] facilities. It does not include entries that were removed or entered in error. Substance Category Reaction Severity Reaction type Status Date Reported Comments Source ACETAMINOP HEN/HYDROC ODONE Propensity to adverse reactions to drug (finding) Itching MODERATE active 4 [facility] OTHER {Cla } Drug allergy (disorder) Other Reaction active 6 Cornell SIMPSON [place], [place] SEASONAL ALLERGIES Propensity to adverse reaction (finding) Sneezing, EYE IRRITATION MODERATE active 4 [facility] TAPE Propensity to adverse reaction (finding) Eruption MILD active 4 [facility] Immunizations Combined list of available immunizations from the Department of [facility] and [facility] facilities. Immunization Series Date Given Administered By Site Reaction Lot Number CVX Code Drug Circus Agent Status Comments Source TDAP 2023 ROBERT OLMSTEAD OLE DONNY LEFT DELTO ID [id number] 115 complet ed [facility] ZOSTER RECOMBINANT 2 2023 JACKIE SCHMITT D RIGHT DELTO ID [id number] 187 complet ed DILUENT LOT# [id number] [facility] ZOSTER RECOMBINANT 1 2023 ROBERT OLMSTEAD OLE DONNY RIGHT DELTO ID [id number] 187 complet ed [id number] 05/25/25 [facility] INFLUENZA, INJECTABLE, QUADRIVALENT, PRESERVATIVE FREE 2022 150 complet ed [facility] TD (ADULT), 2 LF TETANUS TOXOID, PRESERVATIVE FREE, ADSORBED 2022 09 complet ed [facility] COVID-19 (PFIZER), MRNA, LNP-S, PF, 30 MCG/0.3 ML DOSE 2020 208 complet ed [facility] INFLUENZA, INJECTABLE, QUADRIVALENT, PRESERVATIVE FREE 2020 150 complet ed [facility] COVID-19 (PFIZER), MRNA, LNP-S, PF, 30 MCG/0.3 ML DOSE 2020 208 complet ed [facility] COVID-19 (PFIZER), MRNA, LNP-S, PF, 30 MCG/0.3 ML DOSE 2019 208 complet ed [facility] INFLUENZA, INJECTABLE, QUADRIVALENT 2018 158 complet ed [facility] INFLUENZA, INJECTABLE, QUADRIVALENT, PRESERVATIVE FREE 2017 150 complet ed [facility] Influenza, injectable, quadrivalent, preservative free 1 2016 [id number] 150 [facility] ([facility]) complet ed Influenza , injectabl e, quadrival ent, preservat judie free DoD INFLUENZA, SEASONAL, INJECTABLE 2016 141 complet ed [facility] Influenza, seasonal, injectable, preservative free 1 2015 UNK 140 Unknown (UNK) comple t ed Influenza , seasonal, injectabl e, preservat judie free DoD pneumococcal conjugate vaccine, 13 valent 1 2014 OMAR CARDENAS [id number] 133 WYETH-LEDERLE (WYE) complet ed pneumococ cristóbal conjugate vaccine, 13 valent DoD influenza, injectable, quadrivalent, contains preservative 1 2014 ARIS WAITE M [id number] 158 Smithine (SK) complet ed influenza , injectabl e, quadrival ent, contains preservat judie DoD measles, mumps and rubella virus vaccine 2 2014 UNK 03 Unknown (UNK) Not Given measles, mumps and rubella virus vaccine DoD poliovirus vaccine, inactivated 1 2014 [id number] 10 [facility] ([facility]) complet ed polioviru s vaccine, inactivat ed DoD anthrax vaccine 6 2014 [id number] 24 [facility] [employer] [facility] ([facility]) complet ed anthrax vaccine DoD pneumococcal polysaccharid e vaccine, 23 valent 1 2014 [id number] 33 Merck (MSD) complet ed pneumococ cristóbal polysacch aride vaccine, 23 valent DoD typhoid Vi capsular polysaccharid e vaccine 1 2014 [id number] 101 Jorge (AD) complet ed typhoid Vi capsular polysacch aride vaccine DoD Influenza, injectable, Madin Tatiana Canine Kidney, preservative free 1 2013 [id number] 153 Unknown (UNK) comple t ed Influenza , injectabl e, Madin [place] Canine Kidney, preservat juide free DoD INFLUENZA, SEASONAL, INJECTABLE 2013 141 complet ed [facility] INFLUENZA, UNSPECIFIED FORMULATION 2012 88 complet ed [place] [facility] Influenza, injectable, Madin Tatiana Canine Kidney, preservative free 1 2012 [id number] 153 CS [employer] ([facility]) complet ed Influenza , injectabl e, Madin Tatiana Canine Kidney, preservat judie free DoD Influenza, seasonal, injectable, preservative free 1 2011 [id number] 140 [employer] ([facility]) complet ed Influenza , seasonal, injectabl e, preservat judie free DoD tuberculin skin test; purified protein derivative solution, intradermal 1 2011 Unknown, Provider [id number] Sanofi Pasteur ([facility]) complet ed tuberculi n skin test; purified protein derivativ e solution, intraderm al DoD Influenza, seasonal, injectable, preservative free 1 2010 [id number] 140 CS I [employer] (CS) complet ed Influenza , seasonal, injectabl e, preservat judie free DoD Influenza, seasonal, injectable 1 2010 [id number] 141 Sanofi Pasteur ([facility]) complet ed Influenza , seasonal, injectabl e DoD INFLUENZA, UNSPECIFIED FORMULATION 2010 88 complet ed [facility] vaccinia (smallpox) vaccine 1 2010 UNK 75 Unknown (UNK) Not Given vaccinia (smallpox ) vaccine DoD varicella virus vaccine 1 2010 UNK 21 Unknown (UNK) Not Given varicella virus vaccine DoD anthrax vaccine 5 2010 [id number] 24 [employer] [place] ([facility]) complet ed anthrax vaccine DoD typhoid Vi capsular polysaccharid e vaccine 1 2010 [id number] Sanofi Pasteur ([facility]) complet ed typhoid Vi capsular polysacch aride vaccine DoD tuberculin skin test; purified protein derivative solution, intradermal 1 2010 Unknown, Provider UNK 96 Unknown (UNK) complet ed tuberculi n skin test; purified protein derivativ e solution, intraderm al DoD influenza virus vaccine, split virus (incl. purified surface antigen)-reti red CODE 1 2009 [id number] 15 Unknown (UNK) complet ed influenza virus vaccine, split virus (incl. purified surface antigen)- retired CODE DoD Novel influenza-H1N 1-09, all formulations 1 2009 [id number] 128 Novartis Syntax[employer]. (NOV) complet ed Novel influenza -[id number], all formulati ons DoD influenza virus vaccine, split virus (incl. purified surface antigen)-reti red CODE 1 2008 UNK 15 CS [employer] (CS) complet ed influenza virus vaccine, split virus (incl. purified surface antigen)- retired CODE DoD tuberculin skin test; purified protein derivative solution, intradermal 1 2008 Unknown, Provider UNK 96 Unknown (UNK) complet ed tuberculi n skin test; purified protein derivativ e solution, intraderm al DoD tuberculin skin test; purified protein derivative solution, intradermal 1 2008 Unknown, Provider [id number] 96 Sanofi Pasteur ([facility]) complet ed tuberculi n skin test; purified protein derivativ e solution, intraderm al DoD anthrax vaccine 4 2008 [id number] 24 Unknown (UNK) comple t ed anthrax vaccine DoD influenza virus vaccine, split virus (incl. purified surface antigen)-reti red CODE 1 2007 [id number] 15 Unknown (UNK) complet ed influenza virus vaccine, split virus (incl. purified surface antigen)- retired CODE DoD anthrax vaccine 3 2007 UNK 24 [employer] [place] ([facility]) complet ed anthrax vaccine DoD anthrax vaccine 2 2007 UNK 24 [employer] [place] ([facility]) complet ed anthrax vaccine DoD anthrax vaccine 1 2007 UNK 24 [employer] [place] [facility] ([facility]) complet ed anthrax vaccine DoD typhoid Vi capsular polysaccharid e vaccine 1 2007 [id number] Other (OTH) complet ed typhoid Vi capsular polysacch aride vaccine DoD tetanus and diphtheria toxoids, adsorbed, preservative free, for adult use (2 Lf of tetanus toxoid and 2 Lf of diphtheria toxoid) 1 2007 [id number] Sanofi Pasteur ([facility]) complet ed tetanus and diphtheri a toxoids, adsorbed, preservat judie free, for adult use (2 Lf of tetanus toxoid and 2 Lf of diphtheri a toxoid) DoD tetanus toxoid, reduced diphtheria toxoid, and acellular pertu is vaccine, adsorbed 1 2007 [id number] 115 Sanofi Pasteur ([facility]) complet ed tetanus toxoid, reduced diphtheri a toxoid, and acellular pertussis vaccine, adsorbed DoD influenza virus vaccine, split virus (incl. purified surface antigen)-reti red CODE 1 2006 UNK 15 [employer] ([facility]) complet ed influenza virus vaccine, split virus (incl. purified surface antigen)- retired CODE DoD influenza virus vaccine, split virus (incl. purified surface antigen)-reti red CODE 1 2005 [id number] 15 [facility] ([facility]) complet ed influenza virus vaccine, split virus (incl. purified surface antigen)- retired CODE DoD influenza virus vaccine, split virus (incl. purified surface antigen)-reti red CODE 1 2005 [id number] 15 Unknown (UNK) comple t ed influenza [...] meningococcal polysaccharid e vaccine (MPSV4) 0 2002 [id number] 32 Sanofi Pasteur ([facility]) complet ed meningoco ccal polysacch aride vaccine (MPSV4) DoD influenza virus vaccine, unspecified formulation 0 2002 [id number] 88 Sanofi Pasteur ([facility]) complet ed influenza virus vaccine, unspecifi ed formulati on DoD typhoid vaccine, parenteral, other than acetone-kille d, dried 0 2001 [id number] 41 Sanofi Pasteur ([facility]) complet ed typhoid vaccine, parentera l, other [...] yellow fever vaccine 0 1997 UNK 37 [employer] (CON) complet ed yellow fever vaccine DoD [...] Reference Range Date Interpretation Specimen Comments Source BASIC METABOLIC PANEL+MG CREATININE [MASS/VOLUM E] IN SERUM OR PLASMA 1.3 mg/dL 0.7 - 1.2 12/24 H Specimen Type: PLASMA No comment entered. Ordering Provider: MICA PATTON Report Released Date/Time: Dec 25, 2023 01:19 PM Reporting Lab: [facility] [place] [address] Performing Lab: [facility] [place] [address] [facility] BASIC METABOLIC PANEL+MG UREA NITROGEN [MASS/VOLUM E] IN SERUM OR PLASMA 24 mg/dL 8 - 26 12/24 Specimen Type: PLASMA No comment entered. Ordering Provider: MICA PATTON Report Released Date/Time: Dec 25, 2023 01:19 PM Reporting Lab: [facility] [place] [address] Performing Lab: [facility] [place] [address] [facility] BASIC METABOLIC PANEL+MG GLUCOSE [MASS/VOLUM E] IN SERUM OR PLASMA 84 mg/dL 70 - 100 12/24 Specimen Type: PLASMA No comment entered. Ordering Provider: MICA PATTON Report Released Date/Time: Dec 25, 2023 01:19 PM Reporting Lab: [facility] [place] [address] Performing Lab: [facility] [place] [address] [facility] BASIC METABOLIC PANEL+MG SODIUM [MOLES/VOLU ME] IN SERUM OR PLASMA 142 mmol/L 136 - 145 12/24 Specimen Type: PLASMA No comment entered. Ordering Provider: MICA PATTON Report Released Date/Time: Dec 25, 2023 01:19 PM Reporting Lab: [facility] [place] [address] Performing Lab: [facility] [place] [address] [facility] BASIC METABOLIC PANEL+MG POTASSIUM [MOLES/VOLU ME] IN SERUM OR PLASMA 4.0 mmol/L 3.5 - 5.1 12/24 Specimen Type: PLASMA No comment entered. Ordering Provider: MICA PATTON Report Released Date/Time: Dec 25, 2023 01:19 PM Reporting Lab: [facility] [place] [address] Performing Lab: [facility] [place] [address] [facility] BASIC METABOLIC PANEL+MG CHLORIDE [MOLES/VOLU ME] IN SERUM OR PLASMA 111 mmol/L 98 - 107 12/24 H Specimen Type: PLASMA No comment entered. Ordering Provider: MICA PATTON Report Released Date/Time: Dec 25, 2023 01:19 PM Reporting Lab: [facility] [place] [address] Performing Lab: [facility] [place] [address] [facility] BASIC METABOLIC PANEL+MG CARBON DIOXIDE, TOTAL [MOLES/VOLU ME] IN SERUM OR PLASMA 25 mmol/L 22 - 29 12/24 Specimen Type: PLASMA No comment entered. Ordering Provider: MICA PATTON Report Released Date/Time: Dec 25, 2023 01:19 PM Reporting Lab: [facility] [place] [address] Performing Lab: [facility] [place] [address] [facility] BASIC METABOLIC PANEL+MG CALCIUM [MASS/VOLUM E] IN SERUM OR PLASMA 9.2 mg/dL 8.4 - 10.2 12/24 Specimen Type: PLASMA No comment entered. Ordering Provider: MICA PATTON Report Released Date/Time: Dec 25, 2023 01:19 PM Reporting Lab: [facility] [place] [address] Performing Lab: [facility] [place] [address] [facility] BASIC METABOLIC PANEL+MG MAGNESIUM [MASS/VOLUM E] IN SERUM OR PLASMA 2.1 mg/dL 1.6 - 2.6 12/24 Specimen Type: PLASMA No comment entered. Ordering Provider: MICA PTATON Report Released Date/Time: Dec 25, 2023 01:19 PM Reporting Lab: [facility] [place] [address] Performing Lab: [facility] [place] [address] [facility] BASIC METABOLIC PANEL+MG ANION GAP IN SERUM OR PLASMA 6 mmol/L 5 - 15 12/24 Specimen Type: PLASMA No comment entered. Ordering Provider: MICA PATTON Report Released Date/Time: Dec 25, 2023 01:19 PM Reporting Lab: [facility] [place] [address] Performing Lab: [facility] [place] [address] [facility] BASIC METABOLIC PANEL+MG GLOMERULAR FILTRATION RATE/1.73 SQ M.PREDICTED [VOLUME RATE/AREA] IN SERUM, PLASMA OR BLOOD BY CREATININE- BASED FORMULA (CKD-EPI 2020) 63 60 12/24 Specimen Type: PLASMA No comment entered. Ordering Provider: MICA PATTON Report Released Date/Time: Dec 25, 2023 01:19 PM Reporting Lab: [facility] [place] [address] Performing Lab: [facility] [place] [address] [facility] THYROID STIMULATI NG IMMUNOGLO BULIN THYROID STIMULATING [...] of this assay have been determined by [employer] [place], [place]. The modificatio ns have not been cleared or approved by the FDA. This assay has been validated pursuant to the CLIA regulations and is used for clinical purposes. Test Performed by [facility], [facility], [address] [place] [address] Michael Jimenez M.D., Ph.D., Director of Laboratorie s , CLIA [id number] Ordering Provider: MICA PATTON Report Released Date/Time: June 27, 2023 11:49 AM Reporting Lab: [facility] [place] [address] Performing Lab: [address] [facility] TOTAL T3 TRIIODOTHYR ONINE (T3) [MASS/VOLUM E] IN SERUM OR PLASMA 79 ng/dL 35 - 193 06/26 Specimen Type: SERUM No comment entered. Ordering Provider: MICA PATTON Report Released Date/Time: June 27, 2023 11:49 AM Reporting Lab: [facility] [place] [address] Performing Lab: [facility] [place] [address] [facility] PSA PROSTATE SPECIFIC AG [MASS/VOLUM E] IN SERUM OR PLASMA 2.07 ng/mL <4.00 - 4.00 06/26 Specimen Type: SERUM No comment entered. Ordering Provider: MICA PATTON Report Released Date/Time: June 27, 2023 10:36 AM Reporting Lab: [facility] [place] [address] Performing Lab: [facility] [place] [address] [facility] HEMOGLOBI N A1C HEMOGLOBIN A1C/HEMOGLO BIN.TOTAL [...] June 27, 2023 10:36 AM Reporting Lab: [facility] [place] [address] Performing Lab: [facility] [place] [address] [facility] COMPREHEN SIVE METABOLIC PANEL+MG CREATININE [MASS/VOLUM E] IN SERUM OR PLASMA 1.4 mg/dL 0.7 - 1.2 06/26 H Specimen Type: PLASMA No comment entered. Ordering Provider: MICA PATTON Report Released Date/Time: June 27, 2023 10:36 AM Reporting Lab: [facility] [place] [address] Performing Lab: [facility] [place] [address] [facility] COMPREHEN SIVE METABOLIC PANEL+MG UREA NITROGEN [MASS/VOLUM E] IN SERUM OR PLASMA 26 mg/dL 8 - 26 06/26 Specimen Type: PLASMA No comment entered. Ordering Provider: MICA PATTON Report Released Date/Time: June 27, 2023 10:36 AM Reporting Lab: [facility] [place] [address] Performing Lab: [facility] [place] [address] [facility] COMPREHEN SIVE METABOLIC PANEL+MG GLUCOSE [MASS/VOLUM E] IN SERUM OR PLASMA 97 mg/dL 70 - 100 06/26 Specimen Type: PLASMA No comment entered. Ordering Provider: MICA PATTON Report Released Date/Time: June 27, 2023 10:36 AM Reporting Lab: [facility] [place] [address] Performing Lab: [facility] [place] [address] [facility] COMPREHEN SIVE METABOLIC PANEL+MG SODIUM [MOLES/VOLU ME] IN SERUM OR PLASMA 141 mmol/L 136 - 145 06/26 Specimen Type: PLASMA No comment entered. Ordering Provider: MICA PATTON Report Released Date/Time: June 27, 2023 10:36 AM Reporting Lab: [facility] [place] [address] Performing Lab: [facility] [place] [address] [facility] COMPREHEN SIVE METABOLIC PANEL+MG POTASSIUM [MOLES/VOLU ME] IN SERUM OR PLASMA 4.0 mmol/L 3.5 - 5.1 06/26 Specimen Type: PLASMA No comment entered. Ordering Provider: MICA PATTON Report Released Date/Time: June 27, 2023 10:36 AM Reporting Lab: [facility] [place] [address] Performing Lab: [facility] [place] [address] [facility] COMPREHEN SIVE METABOLIC PANEL+MG CHLORIDE [MOLES/VOLU ME] IN SERUM OR PLASMA 109 mmol/L 98 - 107 06/26 H Specimen Type: PLASMA No comment entered. Ordering Provider: MICA PATTON Report Released Date/Time: June 27, 2023 10:36 AM Reporting Lab: [facility] [place] [address] Performing Lab: [facility] [place] [address] [facility] COMPREHEN SIVE METABOLIC PANEL+MG CARBON DIOXIDE, TOTAL [MOLES/VOLU ME] IN SERUM OR PLASMA 26 mmol/L 22 - 29 06/26 Specimen Type: PLASMA No comment entered. Ordering Provider: MICA PATTON Report Released Date/Time: June 27, 2023 10:36 AM Reporting Lab: [facility] [place] [address] Performing Lab: [facility] [place] [address] [facility] COMPREHEN SIVE METABOLIC PANEL+MG CALCIUM [MASS/VOLUM E] IN SERUM OR PLASMA 9.3 mg/dL 8.4 - 10.2 06/26 Specimen Type: PLASMA No comment entered. Ordering Provider: MICA PATTON Report Released Date/Time: June 27, 2023 10:36 AM Reporting Lab: [facility] [place] [address] Performing Lab: [facility] [place] [address] [facility] COMPREHEN SIVE METABOLIC PANEL+MG PROTEIN [MASS/VOLUM E] IN SERUM OR PLASMA 6.3 g/dL 6.0 - 8.3 06/26 Specimen Type: PLASMA No comment entered. Ordering Provider: MICA PATTON Report Released Date/Time: June 27, 2023 10:36 AM Reporting Lab: [facility] [place] [address] Performing Lab: [facility] [place] [address] [facility] COMPREHEN SIVE METABOLIC PANEL+MG ALBUMIN [MASS/VOLUM E] IN SERUM OR PLASMA 3.7 g/dL 3.5 - 5.2 06/26 Specimen Type: PLASMA No comment entered. Ordering Provider: MICA PATTON Report Released Date/Time: June 27, 2023 10:36 AM Reporting Lab: [facility] [place] [address] Performing Lab: [facility] [place] [address] [facility] COMPREHEN SIVE METABOLIC PANEL+MG BILIRUBIN.T OTAL [MASS/VOLUM E] IN SERUM OR PLASMA 0.5 mg/dL 0.2 - 1.2 06/26 Specimen Type: PLASMA No comment entered. Ordering Provider: MICA PATTON Report Released Date/Time: June 27, 2023 10:36 AM Reporting Lab: [facility] [place] [address] Performing Lab: [facility] [place] [address] [facility] COMPREHEN SIVE METABOLIC PANEL+MG MAGNESIUM [MASS/VOLUM E] IN SERUM OR PLASMA 2.2 mg/dL 1.6 - 2.6 06/26 Specimen Type: PLASMA No comment entered. Ordering Provider: MICA PATTON Report Released Date/Time: June 27, 2023 10:36 AM Reporting Lab: [facility] [place] [address] Performing Lab: [facility] [place] [address] [facility] COMPREHEN SIVE METABOLIC PANEL+MG ANION GAP IN SERUM OR PLASMA 6 mmol/L - 06/26 Specimen Type: PLASMA No comment entered. Ordering Provider: MICA PATTON Report Released Date/Time: June 27, 2023 10:36 AM Reporting Lab: [facility] [place] [address] Performing Lab: [facility] [place] [address] [facility] COMPREHEN SIVE METABOLIC PANEL+MG ALKALINE PHOSPHATASE [ENZYMATIC ACTIVITY/VO LUME] IN SERUM OR PLASMA 65 U/L 40 - 150 06/26 Specimen Type: PLASMA No comment entered. Ordering Provider: MICA PATTON Report Released Date/Time: June 27, 2023 10:36 AM Reporting Lab: [facility] [place] [address] Performing Lab: [facility] [place] [address] [facility] COMPREHEN SIVE METABOLIC PANEL+MG ALANINE AMINOTRANSF ERASE [ENZYMATIC ACTIVITY/VO LUME] IN SERUM OR PLASMA 31 U/L <55 - 55 06/26 Specimen Type: PLASMA No comment entered. Ordering Provider: MICA PATTON Report Released Date/Time: June 27, 2023 10:36 AM Reporting Lab: [facility] [place] [address] Performing Lab: [facility] [place] [address] [facility] COMPREHEN SIVE METABOLIC PANEL+MG ASPARTATE AMINOTRANSF ERASE [ENZYMATIC ACTIVITY/VO LUME] IN SERUM OR PLASMA 40 U/L <34 - 34 06/26 H Specimen Type: PLASMA No comment entered. Ordering Provider: MICA PATTON Report Released Date/Time: June 27, 2023 10:36 AM Reporting Lab: [facility] [place] [address] Performing Lab: [facility] [place] [address] [facility] COMPREHEN SIVE METABOLIC PANEL+MG GLOMERULAR FILTRATION RATE/1.73 SQ M.PREDICTED [VOLUME RATE/AREA] IN SERUM, PLASMA OR BLOOD BY CREATININE- BASED FORMULA (CKD-EPI 2020) 58 60 06/26 L Specimen Type: PLASMA No comment entered. Ordering Provider: MICA PATTON Report Released Date/Time: June 27, 2023 10:36 AM Reporting Lab: [facility] [place] [address] Performing Lab: [facility] [place] [address] [facility] LIPID PANEL,NON -FASTING CHOLESTEROL [MASS/VOLUM E] IN SERUM OR PLASMA 169 mg/dL <199 - 199 06/26 Specimen Type: PLASMA No comment entered. Ordering Provider: MICA PATTON Report Released Date/Time: June 27, 2023 10:36 AM Reporting Lab: [facility] [place] [address] Performing Lab: [facility] [place] [address] [facility] LIPID PANEL,NON -FASTING CHOLESTEROL IN HDL [MASS/VOLUM E] IN SERUM OR PLASMA 57 mg/dL 40 06/26 Specimen Type: PLASMA No comment entered. Ordering Provider: MICA PATTON Report Released Date/Time: June 27, 2023 10:36 AM Reporting Lab: [facility] [place] [address] Performing Lab: [facility] [place] [address] [facility] LIPID PANEL,NON -FASTING CHOLESTEROL IN LDL [MASS/VOLUM E] IN SERUM OR PLASMA BY CALCULATION 102 mg/dL <99 - 99 06/26 H Specimen Type: PLASMA No comment entered. Ordering Provider: MICA PATTON Report Released Date/Time: June 27, 2023 10:36 AM Reporting Lab: [facility] [place] [address] Performing Lab: [facility] [place] [address] [facility] LIPID PANEL,NON -FASTING CHOLESTEROL IN VLDL [MASS/VOLUM E] IN SERUM OR PLASMA BY CALCULATION 10 mg/dL <29 - 29 06/26 Specimen Type: PLASMA No comment entered. Ordering Provider: MICA PATTON Report Released Date/Time: June 27, 2023 10:36 AM Reporting Lab: [facility] [place] [address] Performing Lab: [facility] [place] [address] [facility] LIPID PANEL,NON -FASTING CHOLESTEROL NON HDL [MASS/VOLUM E] IN SERUM OR PLASMA 112 mg/dL <129 - 129 06/26 Specimen Type: PLASMA No comment entered. Ordering Provider: MICA PATTON Report Released Date/Time: June 27, 2023 10:36 AM Reporting Lab: [facility] [place] [address] Performing Lab: [facility] [place] [address] [facility] LIPID PANEL,NON -FASTING TRIGLYCERID E [MASS/VOLUM E] IN SERUM OR PLASMA 50 mg/dL <149 - 149 06/26 Specimen Type: PLASMA No comment entered. Ordering Provider: MICA PATTON Report Released Date/Time: June 27, 2023 10:36 AM Reporting Lab: [facility] [place] [address] Performing Lab: [facility] [place] [address] [facility] TSH W/REFLEX TO FREE T4 THYROTROPIN [UNITS/VOLU ME] IN SERUM OR PLASMA 0.95 u[IU]/ mL 0.35 - 4.94 06/26 Specimen Type: PLASMA No comment entered. Ordering Provider: MICA PATTON Report Released Date/Time: June 27, 2023 10:36 AM Reporting Lab: [facility] [place] [address] Performing Lab: [facility] [place] [address] [facility] TSH W/REFLEX TO FREE T4 THYROXINE (T4) FREE [MASS/VOLUM E] IN SERUM OR PLASMA 1.11 ng/dL 0.70 - 1.48 06/26 Specimen Type: PLASMA No comment entered. Ordering Provider: MICA PATTON Report Released Date/Time: June 27, 2023 10:36 AM Reporting Lab: [facility] [place] [address] Performing Lab: [facility] [place] [address] [facility] CBC LEUKOCYTES [#/VOLUME] IN BLOOD BY AUTOMATED COUNT 5.24 10*3/u L 4.0 - 11.0 06/26 Specimen Type: BLOOD No comment entered. Ordering Provider: MICA PATTON Report Released Date/Time: June 27, 2023 10:36 AM Reporting Lab: [facility] [place] [address] Performing Lab: [facility] [place] [address] [facility] CBC ERYTHROCYTE S [#/VOLUME] IN BLOOD BY AUTOMATED COUNT 4.76 10*6/u L 4.6 - 6.2 06/26 Specimen Type: BLOOD No comment entered. Ordering Provider: MICA PATTON Report Released Date/Time: June 27, 2023 10:36 AM Reporting Lab: [facility] [place] [address] Performing Lab: [facility] [place] [address] [facility] CBC HEMOGLOBIN [MASS/VOLUM E] IN BLOOD 14.6 g/dL 13.5 - 17.9 06/26 Specimen Type: BLOOD No comment entered. Ordering Provider: MICA PATTON Report Released Date/Time: June 27, 2023 10:36 AM Reporting Lab: [facility] [place] [address] Performing Lab: [facility] [place] [address] [facility] CBC HEMATOCRIT [VOLUME FRACTION] OF BLOOD BY AUTOMATED COUNT 43.7 41 - 54 06/26 Specimen Type: BLOOD No comment entered. Ordering Provider: MICA PATTON Report Released Date/Time: June 27, 2023 10:36 AM Reporting Lab: [facility] [place] [address] Performing Lab: [facility] [place] [address] [facility] CBC MCV [ENTITIC VOLUME] BY AUTOMATED COUNT 91.8 fL 80 - 100 06/26 Specimen Type: BLOOD No comment entered. Ordering Provider: MICA PATTON Report Released Date/Time: June 27, 2023 10:36 AM Reporting Lab: [facility] [place] [address] Performing Lab: [facility] [place] [address] [facility] CBC MCH [ENTITIC MASS] BY AUTOMATED COUNT 30.7 pg 27 - 33 06/26 Specimen Type: BLOOD No comment entered. Ordering Provider: MICA PATTON Report Released Date/Time: June 27, 2023 10:36 AM Reporting Lab: [facility] [place] [address] Performing Lab: [facility] [place] [address] [facility] CBC MCHC [MASS/VOLUM E] BY AUTOMATED COUNT 33.4 g/dL 32.0 - 37.5 06/26 Specimen Type: BLOOD No comment entered. Ordering Provider: MICA PATTON Report Released Date/Time: June 27, 2023 10:36 AM Reporting Lab: [facility] [place] [address] Performing Lab: [facility] [place] [address] [facility] CBC PLATELETS [#/VOLUME] IN BLOOD BY AUTOMATED COUNT 233 10*3/u L 150 - 400 06/26 Specimen Type: BLOOD No comment entered. Ordering Provider: MICA PATTON Report Released Date/Time: June 27, 2023 10:36 AM Reporting Lab: [facility] [place] [address] Performing Lab: [facility] [place] [address] [facility] CBC PLATELET MEAN VOLUME [ENTITIC VOLUME] IN BLOOD BY AUTOMATED COUNT 10.6 fL 7.4 - 10.4 06/26 H Specimen Type: BLOOD No comment entered. Ordering Provider: MICA PATTON Report Released Date/Time: June 27, 2023 10:36 AM Reporting Lab: [facility] [place] [address] Performing Lab: [facility] [place] [address] [facility] CBC ERYTHROCYTE DISTRIBUTIO N WIDTH [RATIO] BY AUTOMATED COUNT 12.5 11.5 - 14.5 06/26 Specimen Type: BLOOD No comment entered. Ordering Provider: MICA PATTON Report Released Date/Time: June 27, 2023 10:36 AM Reporting Lab: [facility] [place] [address] Performing Lab: [facility] [place] [address] [facility] FREE-T4 THYROXINE (T4) FREE [MASS/VOLUM E] IN SERUM OR PLASMA 1.11 ng/dL 0.70 - 1.48 06/26 Specimen Type: PLASMA No comment entered. Ordering Provider: MICA PATTON Report Released Date/Time: June 27, 2023 10:36 AM Reporting Lab: [facility] [place] [address] Performing Lab: [facility] [place] [address] [facility] Vital Signs Combined list of inpatient and outpatient Vital Signs from Department of Defense and Veterans Affairs, ranging from 12 months to all on record, depending upon the facility. Vital Sign Value Date Comments Source SYSTOLIC BLOOD PRESSURE 128 01/02/2024 13:35:04 [facility] DIASTOLIC BLOOD PRESSURE 85 01/02/2024 13:35:04 [facility] PULSE OXIMETRY 97 01/02/2024 13:35:04 [place] [facility] PAIN 0 01/02/2024 13:35:04 [place] [facility] TEMPERATURE 98 01/02/2024 13[facility]35:04 [place] [facility] PULSE 81 01/02/2024 13:35:04 [place] [facility] RESPIRATION 16 01/02/2024 13:35:04 [place] [facility] SYSTOLIC BLOOD PRESSURE 126 12/25/2023 12:37:05 [facility] DIASTOLIC BLOOD PRESSURE 80 12/25/2023 12:37:05 [facility] PULSE OXIMETRY 96 12/25/2023 12:37:05 [facility] PAIN 1 12/25/2023 12:37:05 [facility] TEMPERATURE 97 12/25/2023 12:37:05 [facility] PULSE 79 12/25/2023 12:37:05 [facility] RESPIRATION 16 12/25/2023 12:37:05 [facility] WEIGHT 220 08/15/2023 09:13:31 [facility] [place] [facility] BMI 30kg/m2 08/15/2023 09:13:31 [facility] [place] SYSTOLIC BLOOD PRESSURE 133 07/24/2023 08:34:21 [facility] DIASTOLIC BLOOD PRESSURE 74 07/24/2023 08:34:21 [facility] PULSE OXIMETRY 96 07/24/2023 08:34:21 [facility] WEIGHT 224 07/24/2023 08:34:21 [place] [facility] BMI 30kg/m2 07/24/2023 08:34:21 [place] [facility] PAIN 0 07/24/2023 08:34:21 [facility] [place] [facility] TEMPERATURE 97.6 07/24/2023 08:34:21 [place] [facility] PULSE 80 07/24/2023 08:34:21 [facility] [place] [facility] RESP[place] 18 07/24/2023 08:34:21 [facility] SYSTOLIC BLOOD PRESSURE 104 06/27/2023 09:55:38 [facility] DIASTOLIC BLOOD PRESSURE 70 06/27/2023 09:55:38 [facility] PULSE OXIMETRY 95 06/27/2023 09:55:38 S [...] Date DC Date Status Disposition Source Javon SIMPSON [place]([facility] champion Conserv[facility] ion-OST) OUTPATIENT [id number] ROSANNA GALO 12/19 Released w/o Limitations Adelfo garcia [place]Hear ing Conserv ation-[facility]) [facility] OUTPATIENT [id number] 01/21 Released w/o Limitations [facility] OUTPATIENT [id number] 04/08 Released w/o Limitations [facility] OUTPATIENT [id number] 05/08 Released w/o Limitations [facility] OUTPATIENT [id number] 05/12 Released w/o Limitations [facility] OUTPATIENT [id number] 05/12 Released w/o Limitations [facility] OUTPATIENT [id number] 05/13 Released w/o Limitations [facility] [place]([facility] Hearing Conservat ion) OUTPATIENT [id number] post/ts t SHANESAMANTHAAlok Queen 06/01 Released w/o Limitations [place] Hearing Conserv ation) [place] [employer]) OUTPATIENT [id number] ANGELA LEES 06/01 Released w/o Limitations [place]Sold [place] Readine [place] Program [employer]) [place] Optometry Clinic) OUTPATIENT [id number] EYE EXAM NOHEMY ROCHA 06/05 Released w/o Limitations [place] Optomet [facility]) [place] OUTPATIENT [id number] Notes Entered by: NARESH OWENS 19 Mar 2014 1433 ------- ------- ------- ------- -- NARESH MCNAMARA 03/19 Released w/o Limitations [place] Hearing Conservat ion) OUTPATIENT [id number] WERNER RENTERIA 03/20 Released w/o Limitations [place] Hearing Conserv ation) [place] [address]) OUTPATIENT [id number] Notes Entered by: KAYY KELLEY 20 Mar 2014 1257 ------- ------- ------- ------- -- KAYY Nicholas 03/20 Released w/o Limitations [place]([facility] [address]) [facility] OUTPATIENT [id number] neck mass MICHELLE VANEGAS 11/10 Released w/o Limitations [facility]) [facility]) OUTPATIENT [id number] Notes Entered by: JAIME ZUNIGA 11 Nov 2014 1225 ------- ------- ------- ------- -- follow up neck mass MICHELLE VANEGAS 11/11 [facility]) OUTPATIENT [id number] Notes Entered by: Kemi TREADWELL 12 Nov 2014 1338 ------- ------- ------- ------- -- Lump in throat MICHELLE VANEGAS 11/12 [facility]ased w/o Limitations [facility]) OUTPATIENT [id number] Notes Entered by: JENN BAUER 13 Nov 2014 1140 ------- ------- ------- ------- -- TCC ARELY COX 11/13 [facility]ased w/[facility] Limitations [facility] Facility OUTPATIENT [id number] Theater Provider 11/14 [facility] OUTPATIENT [id number] Theater Provider 11/15 [place] [address](Randolph laryngolo gy (ENT) [facility]) OUTPATIENT [id number] Notes Entered by: TIMUR BEAVER 16 Nov 2014 1325 ------- ------- ------- ------- -- walk in per LAINEY Go 11/16 Released w/o Limitations [facility] [place] [address](O lele hogan (ENT) [facility]) [place] [address]([facility] I 02 Lnghrn) OUTPATIENT [id number] Notes Entered by: VIRAJ ALTMAN 16 Nov 2014 1450 ------- ------- ------- ------- -- Medevneymar from [facility] VIRAJ DOUGLAS 11/16 Released w/o Limitations [facility] [place] [address](A [facility] 02C Lnghrn) [place] [address](Carl e Managemen t [facility]) OUTPATIENT [id number] Notes Entered by: RENÉE PIÑA 17 Nov 2014 0815 ------- ------- ------- ------- -- Cody and Tatyana Initial NCM Appt RENÉE PIÑA 11/17 Released w/o Limitations [facility] [place] [address](C ase Manage ent [facility]) [place] [address]([facility] Rehabilit ation Clinic) OUTPATIENT [id number] Notes Entered by: MADHU FLEMING 18 Nov 2014 0855 ------- ------- ------- ------- -- WALK IN INIT KALEN HAIR 11/18 Released w/o Limitations [facility] [place] [address](S Rehabil itation Clinic) [place] [address](War rior Primary Care [facility]) OUTPATIENT [id number] initial visit KALEN SON 11/18 Released w/o Limitations [facility] [place] [address](W arrior Primary Care [facility]) [place] [address](Randolph laryngolo gy (ENT) [facility]) OUTPATIENT [id number] bx results LAINEY JAY 11/20 Released w/o Limitations [facility] [place] [address](Alok hogan (ENT) [facility]) [place] [address]([facility]) OUTPATIENT [id number] Notes Entered by: ARIS PARKER 20 Nov 2014 1305 ------- ------- ------- ------- -- flu vaccine ARELY ELLISON KANDICE 11/20 [facility]ased w/o Limitations [facility] [place] [address]([facility]) [facility] [place] [address](Luly or Board [facility]) OUTPATIENT [id number] THOMAS SHUBHAM L 11/20 Released w/o Limitations [facility] [place] [address](T umor Board [facility]) [place] [address](Carl e Managemen t [facility]) OUTPATIENT [id number] Notes Entered by: RENÉE PIÑA 24 Nov 2014 0833 ------- ------- ------- ------- -- NCM wkly f/u appt RENÉE PIÑA 11/24 Released w/o Limitations [facility] [place] [address](C ase Managem ent [facility]) [place] [address](Randolph laryngolo gy (ENT) [facility]) OUTPATIENT [id number] Notes Entered by: TIMUR BEAVER 25 Nov 2014 1301 ------- ------- ------- ------- -- walk in per LAINEY Sousa 11/25 Released w/o Limitations [facility] [place] [address](O lele hogan (ENT) [facility]) [place] [address](Spe ech Pathology [facility]) OUTPATIENT [id number] Maligna nt neoplas m of head, face and neck KINA HAWK V 11/25 Released w/o Limitations [facility] [place] [address](S peech Patholo gy [facility]) [place] [address](Carl e Managemen t [facility]) OUTPATIENT [id number] Notes Entered by: WANG RENÉE Kemi 30 Nov 2014 1027 ------- ------- ------- ------- -- NCM Wkly f/u appt. PIÑA RENÉE Kemi 11/30 Released w/o Limitations [facility] [place] [address](C ase Managem ent [facility] [place] [address](Hem atology Oncology [facility]) OUTPATIENT [id number] Squamou s cell carcino ma of skin, unspeci DARELL Gay 11/30 Released w/o Limitations [facility] [place] [address](H ematolo gy Oncolog y [facility]) [place] [address](Soc ial Work [facility]) OUTPATIENT [id number] JESSICA SANTIAGO 12/02 Released w/o Limitations [facility] [place] [address](S ocial Work [facility]) [place] [address](Rad iation Oncology [facility]) OUTPATIENT [id number] head and neck squamou s cell carcino ma ARELY W[place] 12/03 Released w/o Limitations [facility] [place] [address](R adiatio n Oncolog y [facility]) [place] [address](Gas troentero logy [facility]) OUTPATIENT [id number] consult WTT COSME GRANADOS 12/04 Released w/o Limitations [facility] [place] [address](G astroen terolog y [facility]) [place] [address](Randolph laryngolo gy (ENT) [facility]) OUTPATIENT [id number] POST OP LAINEY JAY 12/04 Released w/o Limitations [facility] [place] [address](O lele melgarogy (ENT) [facility]) [place] [address](Luly or Board [facility]) OUTPATIENT [id number] SHUBHAM GUZMAN 12/04 Released w/o Limitations [facility] [place] [address](T umor Board [facility]) [place] [address](U Rehabilit ation Clinic) OUTPATIENT [id number] GOAL SETTING ANDRZEJ SINGH 12/07 Released w/o Limitations [facility] [place] [address](S Rehabil itation Clinic) [place] [address](Carl e Managemen t [facility]) OUTPATIENT [id number] Notes Entered by: RENÉE PIÑA 07 Dec 2014 1005 ------- ------- ------- ------- -- NCM Wkly f/u appt RENÉE PIÑA 12/07 Released w/o Limitations [facility] [place] [address](C ase Managem ent [facility]) [place] [address](Int ervention al Radiology [facility]) OUTPATIENT [id number] SCCa of head and neck KHADAR GALLAGHER 12/08 Released w/o Limitations [facility] [place] [address](I nterven tional Radiolo gy [facility]) [place] [address] DIRECT TO [facility] FROM OTHER THAN ER OR [facility] [id number] KHADAR GALLAGHER 12/10 RETURNED TO DUTY [facility] [place] [address] [place] [address](Rad iation Oncology [facility]) INPATIENT [id number] ct ARELY Cano 12/11 Inpatient- Still a Patient [facility] [place] [address](R adiatio n Oncolog y [facility]) [place] [address](Carl e Managemen t [facility]) OUTPATIENT [id number] Notes Entered by: RENÉE PIÑA 14 Dec 2014 1219 ------- ------- ------- ------- -- NCM Akil f/u appt. 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, 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 SCC, CISP/XR T, TICO NICHOLS 12/15 Released w/o Limitations [facility] [place] [address](H ematolo gy Oncolog y [facility]) [place] [address](War rior Primary Care [facility]) OUTPATIENT [id number] per KALEN Pisano 12/15 Released w/o Limitations [facility] [place] [address](W arrior Primary Care [facility]) [place] [address](Nut rition 5F Bed [facility]) OUTPATIENT [id number] VIDHI MEDRANO 12/16 Released w/o Limitations [facility] [place] [address](N utritio n 5F Bed [employer] [facility]) [place] [address](All ergy Clinic [facility]) OUTPATIENT [id number] Notes Entered by: DEON QUARLES 17 Dec 2014 1005 ------- ------- ------- ------- -- VACCINE JAY PINO 12/17 Released w/o Limitations [facility] [place] [address](A llergy [facility]) [place] [address]([facility]) TELE CONSULT [id number] Notes Entered by: Papo ARMANDO 18 Dec 2014 0942 ------- ------- ------- ------- -- Consult /referr al for Wound Care WHITLEYALEJOKALEN 12/18 [facility] [place] [address]([facility]) [place] [address](Wou nd and Ostomy [facility]) OUTPATIENT [id number] Notes Entered by: MEEK HALL 18 Dec 2014 1035 ------- ------- ------- ------- -- MATEUS SHIRLEY 12/18 Released w/o Limitations [facility] [place] [address](W ound and Ostomy Clinic [facility]) [place] [address]([facility] Rehabilit ation Clinic) OUTPATIENT [id number] G/S REVIEW ANDRZEJ SINGH 12/18 Released w/o Limitations [facility] [place] [address](S Rehabil itation Clinic) [place] [address]([facility] Rehabilit ation Clinic) OUTPATIENT [id number] SARP MADDI LAND 12/18 Released w/o Limitations [facility] [place] [address](S RU Rehabil itation Clinic) [place] [address](Rad iation Oncology [facility]) OUTPATIENT [id number] cyndit [place] 12/21 Released w/o Limitations [facility] [place] [address](R adiatio n Oncolog y [facility]) [place] [address](Int ervention al Radiology [facility]) OUTPATIENT [id number] Notes Entered by: DAYDAY SANTOS 21 Dec 2014 0804 ------- ------- ------- ------- -- PICC Placeme nt 21 Dec 2014 BRIT SHOOK 12/21 Released w/o Limitations [facility] [place] [address](I nterven tional Radiolo gy [facility]) [facility] [place] [address]([facility] motherapy [facility]) OUTPATIENT [id number] 0800, CISPLAT IN C1, VANI KIDD 12/21 Released w/o Limitations [facility] [place] [address]([facility] [place] [address](Nut rition 5F Bed [employer] [facility]) OUTPATIENT [id number] VIDHI MEDRANO 12/21 Released w/o Limitations [facility] [place] [address](N utritio n 5F Bed [employer]) [facility] [place] [address](Rad iation Oncology [facility]) OUTPATIENT [id number] xrt [place]LY [place] 12/22 Released w/o Limitations [facility] [place] [address](R adiatio n Oncolog y [facility]) [place] [address]([facility] OUTPATIENT [id number] Notes Entered by: Shelby SIDDIQI 22 Dec 201414 ------- ------- ------- ------- -- KACEY JHA/ HYDRATI ON/SAMANTHA MARTE 12/22 [facility]ased w/o Limitations [facility] [place] [address](C hemothe rapy [facility]) [facility] [place] [address](Rad iation Oncology [facility]) OUTPATIENT [id number] xrt [place] 12/24 Released w/o Limitations [facility] [place] [address](R adiatio n Oncolog y [facility]) [facility] [place] [address](Carl e Managemen t [facility]) OUTPATIENT [id number] Notes Entered by: RENÉE PIÑA 24 Dec 2014 1005 ------- ------- ------- ------- -- NCM wkly f/u appt RENÉE PIÑA 12/24 Released w/o Limitations [facility] [place] [address](C ase Managem ent [facility]) [place] [address]([facility] motherapy [facility]) OUTPATIENT [id number] LABS/IV F, SAMANTHA NICOLAS 12/24 Released w/o Limitations [place] [address](C hemothe rapy [facility]) [place] [address](Rad iation Oncology [facility]) OUTPATIENT [id number] xrt [place] 12/25 Released w/o Limitations [facility] [place] [address](R adiatio n Oncolog y [facility]) [place] [address](Carl e Managemen [facility]) OUTPATIENT [id number] Notes Entered by: RENÉE PIÑA 25 Dec 2014 1046 ------- ------- ------- ------- -- RENÉE Mckenzie 12/25 Released with Work/Duty Limitations [facility] [place] [address](C ase Managem ent [facility]) [place] [address]([facility] Rehabilit ation [facility]) OUTPATIENT [id number] Notes Entered by: Edwin SPEARS 25 Dec 2014 1520 ------- ------- ------- ------- -- KALEN Duran 12/25 Released w/o Limitations [facility] [place] [address](S RU Rehabil itation [facility]) [facility] [place] [address](Rad iation Oncology [facility]) OUTPATIENT [id number] xrt [place] 12/28 Released w/o Limitations [facility] [place] [address](R adiatio n Oncolog y [facility]) [facility] [place] [address](Rad iation Oncology [facility]) OUTPATIENT [id number] xrt ARELY [place] 12/29 Released w/o Limitations [facility] [place] [address](R adiatio n Oncolog y [facility]) [facility] [place] [address](Ju motherapy Clinic [facility]) OUTPATIENT [id number] Notes Entered by: Edwin PLASCENCIA 29 Dec 2014 0854 ------- ------- ------- ------- -- ISABELTI ON AND DR. JOB ROA ROBERT F 12/29 Released w/o Limitations [facility] [place] [address](C hemothe rapy [facility]) [place] [address](Int ervention al Radiology [facility]) OUTPATIENT [id number] KHADAR GALLAGHER 12/29 Released w/o Limitations [facility] [place] [address](I nterven tional Radiolo gy [facility]) [facility] [place] [address](Carl e Managemen t [facility]) OUTPATIENT [id number] Notes Entered by: RENÉE PIÑA 29 Dec 2014 1430 ------- ------- ------- ------- -- KOBI Powers f/u appt RENÉE PIÑA 12/29 Released w/o Limitations [facility] [place] [address](C ase Managem ent [facility]) [facility] [place] [address](Rad iation Oncology [facility]) OUTPATIENT [id number] xrt [place] 12/30 Released w/o Limitations [facility] [place] [address](R adiatio n Oncolog y [facility]) [facility] [place] [address](Aud iology [facility]) OUTPATIENT [id number] DESIREE Stone Kendy 12/30 Released w/o Limitations [facility] [place] [address](A udiolog y [facility]) [place] [address](Rad iation Oncology [facility]) OUTPATIENT [id number] xrt [place] 12/31 Released w/o Limitations [facility] [place] [address](R adiatio n Oncolog y [facility]) [place] [address](Opt ometry [facility]) OUTPATIENT [id number] Notes Entered by: JASMEET PA 31 Dec 2014 0716 ------- ------- ------- ------- -- MEDPR[employer] UPDATE SAMANTHA OLVERA 12/31 Released w/o Limitations [facility] [place] [address](O ptometr y [facility]) [place] [address](Ju motherapy Clinic [facility]) OUTPATIENT [id number] Notes Entered by: Edwin PLASCENCIA 31 Dec 2014 0814 ------- ------- ------- ------- -- KHADIJAH, SAMANTHA NICOLAS 12/31 Released w/o Limitations [facility] [place] [address](C hemothe rapy Clinic [facility]) [facility] [place] [address](Rad iation Oncology [facility]) OUTPATIENT [id number] xrt [place]LY [place] 01/01 Released w/o Limitations [facility] [place] [address](R adiatio n Oncolog y [facility]) [place] [address](Carl e Managemen t [facility]) OUTPATIENT [id number] Notes Entered by: AJ DE LA ROSA 01 Jan 2015 0919 ------- ------- ------- ------- -- AJ Bernstein 01/01 Released w/o Limitations [facility] [place] [address](C ase Managem ent [facility]) [place] [address](Rad iation Oncology [facility]) OUTPATIENT [id number] xrt [place] 01/04 Released w/o Limitations [facility] [place] [address](R adiatio n Oncolog y [facility]) [place] [address](Carl e Managemen t [facility]) OUTPATIENT [id number] AJ Mackenzie 01/04 Released w/o Limitations [facility] [place] [address](C ase Managem ent [facility]) [place] [address](Carl e Managemen t [facility]) OUTPATIENT [id number] Notes Entered by: AJ DE LA ROSA 04 Jan 2015 1010 ------- ------- ------- ------- -- Weekly F/u AJ VARELA 01/04 Released w/o Limitations [facility] [place] [address](C ase Managem ent [facility]) [place] [address](Rad iation Oncology [facility]) OUTPATIENT [id number] xrt JOHN DALAL 01/05 Released w/o Limitations [facility] [place] [address](R adiatio n Oncolog y Trmnt [facility]) [place] [address]([facility] OUTPATIENT [id number] Notes Entered by: CHAYA TODD 05 Jan 2015 1307 ------- ------- ------- ------- -- IVF/SAMANTHA HOUSTON 01/05 Released w/o Limitations [facility] [place] [address](C hemothe rapy [facility]) [place] [address]([facility] [id number] Encount er for other specifi ed special examina KIMI Amezquita 01/05 Released w/o Limitations [facility] [place] [address](N utritio n 5F Bed [employer] [facility]) [place] [address](Rad iation Oncology [facility]) OUTPATIENT [id number] xrt JOHN DALAL M 01/06 Released w/o Limitations [facility] [place] [address](R adiatio n Oncolog y Trmnt [facility]) [place] [address](Rad iation Oncology [facility]) OUTPATIENT [id number] xrt JOHN DALAL M 01/08 Released w/o Limitations [facility] [place] [address](R adiatio n Oncolog y Trmnt [facility]) [place] [address](Rad iation Oncology [facility]) OUTPATIENT [id number] xrt ARELY [place] 01/11 Released w/o Limitations [facility] [place] [address](R adiatio n Oncolog y Trmnt [facility]) [place] [address]([facility] motherapy [facility]) OUTPATIENT [id number] 0800, CISPLAT IN C2, SAMANTHA NICOLAS 01/11 Released w/o Limitations [facility] [place] [address](C hemothe rapy [facility]) [facility] [place] [address]([facility]) OUTPATIENT [id number] Notes Entered by: CHAYA TODD 12 Jan 2015 0811 ------- ------- ------- ------- -- IVF/SAMANTHA HOUSTON 01/12 Released w/o Limitations [place] [address]([facility]) [facility] [place] [address](Rad iation Oncology [facility]) OUTPATIENT [id number] xrt ARELY [place] 01/12 Released w/o Limitations [facility] [place] [address](R adiatio n Oncolog y [facility]) [facility] [place] [address](Rad iation Oncology [facility]) OUTPATIENT [id number] xrt ARELY [place] 01/13 Released w/o Limitations [facility] [place] [address](R adiatio n Oncolog y [facility]) [facility] [place] [place] [address](Amparo rgency [facility]) OUTPATIENT [id number] KAREEN GREEN 01/13 Released w/o Limitations [facility] [place] [address](E mergenc y Med [facility]) [facility] [place] [address](Rad iation Oncology [facility]) OUTPATIENT [id number] xrt ARELY [place] 01/14 Released w/o Limitations [facility] [place] [address](R adiatio n Oncolog y [facility]) [facility] [place] [address]([facility]) OUTPATIENT [id number] 0815, LABS/IV F, SAMANTHA NICOLAS 01/14 Released w/o Limitations [facility] [place] [address](C hemothe rapy [facility]) [place] [address](Carl e Managemen t [facility]) OUTPATIENT [id number] Notes Entered by: AJ DE LA ROSA 14 Jan 2015 1318 ------- ------- ------- ------- -- Weekly f/u AJ VARELA 01/14 Released w/o Limitations [facility] [place] [address](C ase Managem ent [facility]) [place] [address](Rad iation Oncology [facility]) OUTPATIENT [id number] xrt ARELY [place] 01/15 Released w/o Limitations [facility] [place] [address](R adiatio n Oncolog y [facility]) [place] [address]([facility] motherapy [facility]) OUTPATIENT [id number] Notes Entered by: CHAYA TODD 15 Jan 2015 0815 ------- ------- ------- ------- -- IVF,LAB S/SAMANTHA HOUSTON 01/15 Released w/o Limitations [facility] [place] [address](C hemothe rapy [facility]) [place] [address](Rad iation Oncology [facility]) OUTPATIENT [id number] xrt ARELY [place] 01/18 Released w/o Limitations [place] [address](R adiatio n Oncolog y [facility]) [place] [address](Carl e Managemen t [facility]) OUTPATIENT [id number] AJ Mackenzie 01/18 Released w/o Limitations [facility] [place] [address](C ase Managem ent [facility]) [place] [address]([facility] OUTPATIENT [id number] Notes Entered by: Edwin PLASCENCIA 18 Jan 2015 0906 ------- ------- ------- ------- -- HYDRATI ON, SAMANTHA NICOLAS 01/18 Released w/o Limitations [facility] [place] [address](C hemothe [facility]) [place] [address](War rior Primary Care [facility]) TELE CONSULT [id number] Notes Entered by: SCOUT [place] 18 Jan 2015 1039 ------- ------- ------- ------- -- pt consult KALEN ARREAGA 01/18 [facility] [place] [address](W arrior Primary Care [facility]) [place] [address](Rad iation Oncology [facility]) OUTPATIENT [id number] xrt [place]LY [place] 01/19 Released w/o Limitations [facility] [place] [address](R adiatio n Oncolog y [facility]) [place] [address](Randolph laryngolo gy (ENT) [facility]) OUTPATIENT [id number] F/U LAINEY JAY 01/19 Released w/o Limitations [facility] [place] [address](O lele hogan (ENT) [facility]) [place] [address]([facility] [place] OUTPATIENT [id number] 0900, LABS/PI CC CHANGE/ IVF, SAMANTHA NICOLAS 01/19 Released w/o Limitations [facility] [place] [address]([facility] [place] [address](Aud iology [facility]) OUTPATIENT [id number] chemo patient YOU GARCIAS 01/19 Released w/o Limitations [facility] [place] [address](A udiolog y [facility]) [place] [address](Rad iation Oncology [facility]) OUTPATIENT [id number] xrt ARELY [place] 01/20 Released w/o Limitations [facility] [place] [address](R adiatio n Oncolog y [facility]) [place] [address]([facility] OUTPATIENT [id number] Notes Entered by: Shelby SIDDIQI 20 Jan 2015 1033 ------- ------- ------- ------- -- HYDRATI ON/SAMANTHA MARTE 01/20 Released w/o Limitations [facility] [place] [address](C hemothe rapy [facility]) [facility] [place] [address](Nut rition 5F Bed [employer]) OUTPATIENT [id number] f/u KAVIN HUDSON 01/20 Released w/o Limitations [facility] [place] [address](N utritio n 5F Bed [employer] [facility]) [facility] [place] [address](Rad iation Oncology [facility]) OUTPATIENT [id number] xrt [place]LY [place] 01/21 Released w/o Limitations [facility] [place] [address](R adiatio n Oncolog y [facility]) [place] [address]([facility]) OUTPATIENT [id number] Notes Entered by: Shelby SIDDIQI 21 Jan 2015 0911 ------- ------- ------- ------- -- HYDRATI ON/LABS ?/SAMANTHA ORTEGA 01/21 Released w/o Limitations [facility] [place] [address](C hemothe rapy Clinic [facility]) [facility] [place] [address](Rad iation Oncology [facility]) TELE CONSULT [id number] Notes Entered by: REUBENHARVEY LUCAS Kendy 21 Jan 2015 1649 ------- ------- ------- ------- -- Enteral Nutriti on Recomme ndation s [place] 01/21 [place] [address](R adiatio n Oncolog y [facility]) [place] [address](Rad iation Oncology [facility]) OUTPATIENT [id number] xrt ARELY [place] 01/22 Released w/o Limitations [facility] [place] [address](R adiatio n Oncolog y [facility]) [place] [address]([facility]) OUTPATIENT [id number] Notes Entered by: Shelby SIDDIQI 22 Jan 2015 0842 ------- ------- ------- ------- -- HYDRATI ON/SAMANTHA MARTE 01/22 Released w/o Limitations [facility] [place] [address](C hemothe rapy [facility]) [facility] [place] [address](Rad iation Oncology [facility]) OUTPATIENT [id number] xrt ARELY [place] 01/25 Released w/o Limitations [place] [address](R adiatio n Oncolog y [facility]) [place] [address]([facility]) OUTPATIENT [id number] Notes Entered by: Edwin PLASCENCIA 25 Jan 2015 0928 ------- ------- ------- ------- -- HYDRATI ON, SAMANTHA NICOLAS 01/25 Released w/o Limitations [facility] [place] [address](C hemothe rapy [facility]) [place] [address](Carl e Managemen t [facility]) OUTPATIENT [id number] AJ MackenzieE 01/25 Released w/o Limitations [facility] [place] [address](C ase Managem ent [facility]) [place] [address](Carl e Managemen t [facility]) TELE CONSULT [id number] Notes Entered by: KASSIDY DUFF 25 Jan 2015 1502 ------- ------- ------- ------- -- To arrange enteral feeding s in the home KASSIDY DUFF 01/25 [facility] [place] [address](C ase Managem ent [facility]) [place] [address](Amparo rgency [facility]) OUTPATIENT [id number] RA OWENS 01/26 Released w/o Limitations [facility] [place] [address](E mergenc y Med [facility]) [place] [address](Ju motherapy Clinic [facility]) OUTPATIENT [id number] LABS/IV F, SAMANTHA NICOLAS 01/26 Released w/o Limitations [facility] [place] [address](C hemothe rapy [facility]) [place] [address](Rad iation Oncology [facility]) OUTPATIENT [id number] xrt ARELY [place] 01/26 Released w/o Limitations [facility] [place] [address](R adiatio n Oncolog y [facility]) [place] [address](Int ervention al Radiology [facility]) OUTPATIENT [id number] Notes Entered by: MARINO HORTONSONJA Mckinney 26 Jan 2015 1702 ------- ------- ------- ------- -- walked in peg clogged THAIS DODD 01/26 Released w/o Limitations ESTRELLITA [place] [address](I nterven tional Radiolo [facility]) [place] [address](Rad iation Oncology [facility]) OUTPATIENT [id number] xrt ARELY [place] 01/27 Released w/o Limitations [place] [address](R adiatio n Oncolog y [facility]) [place] [address]([facility]) OUTPATIENT [id number] IVF, SAMANTHA NICOLAS 01/27 Released w/o Limitations [place] [address](C hemothe rapy [facility]) [place] [address](Rad iation Oncology [facility]) OUTPATIENT [id number] xrt ARELY [place] 01/28 [facility]ased w/o Limitations [facility] [place] [address](R adiatio n Oncolog y [facility]) [place] [address]([facility]) OUTPATIENT [id number] IVF, SAMANTHA NICOLAS 01/28 Released w/o Limitations [place] [address](C hemothe rapy [facility]) [place] [address](Rad iation Oncology [facility]) OUTPATIENT [id number] xrt ARELY [place] 01/29 Released w/o Limitations [place] [address](R adiatio n Oncolog y [facility]) [facility] [place] [address]([facility]) OUTPATIENT [id number] IVF, SAMANTHA NICOLAS 01/29 Released w/o Limitations [facility] [place] [address](C hemothe [facility]) [facility] [place] [address] ER, DIRECT TO [facility] [id number] YECENIA ORDOÑEZ 02/01 [facility] [place] [address] [place] [address](Rad iation Oncology [facility]) OUTPATIENT [id number] xrt MACHELLE DALALED M 02/01 Released w/o Limitations [facility] [place] [address](R adiatio n Oncolog y [facility]) [place] [address](Ju motherapy [facility]) OUTPATIENT [id number] CISPLAT IN D43, SAMANTHA NICOLAS 02/01 Admitted [facility] [place] [address](C hemothe rapy [facility]) [place] [address](Hem atology Oncology [facility]) TELE CONSULT [id number] Notes Entered by: SOLITARIO VANN 01 Feb 2015 0855 ------- ------- ------- ------- -- fever,c hills and due for treatme nt KIMBERLI ESTEVES P 02/01 Referred for Appointment [facility] [place] [address](H ematolo gy Oncolog y [facility]) [facility] [place] [address](Carl e Managemen t [facility]) OUTPATIENT [id number] AJ Mackenzie 02/01 Released w/o Limitations [facility] [place] [address](C ase Managem ent [facility]) [facility] [place] [place] [address](Rad iation Oncology [facility]) OUTPATIENT [id number] xrt PARAG HOWE 02/02 Released w/o Limitations [facility] [place] [address](R adiatio n Oncolog y [facility]) [place] [address](Carl e Managemen t [facility]) INPATIENT [id number] Notes Entered by: AJ DE LA ROSA 02 Feb 2015 0950 ------- ------- ------- ------- -- T-AJ Garcia 02/02 Inpatient- Still a Patient [facility] [place] [address](C ase Managem ent [facility]) [place] [address](Amparo rgency [facility]) OUTPATIENT [id number] RA OWENS R 02/02 Admitted [facility] [place] [address](E mergenc y Med [facility]) [place] [address](Rad iation Oncology [facility]) OUTPATIENT [id number] xrt PARAG HOWE R 02/03 Released w/o Limitations [facility] [place] [address](R adiatio n Oncolog y [facility]) [place] [address](Rad iation Oncology [facility]) OUTPATIENT [id number] xrt CARLEY PARAG R 02/04 Released w/o Limitations [facility] [place] [address](R adiatio n Oncolog y [facility]) [place] [address](Rad iation Oncology [facility]) OUTPATIENT [id number] xrt ARELY [place] 02/08 Released w/o Limitations [facility] [place] [address](R adiatio n Oncolog y [facility]) [place] [address](Carl e Managemen t [facility]) OUTPATIENT [id number] AJ Mackenzie 02/08 Released w/o Limitations [facility] [place] [address](C ase Managem ent [facility]) [place] [address]([facility] OUTPATIENT [id number] Notes Entered by: Shelby SIDDIQI 08 Feb 2015 1042 ------- ------- ------- ------- -- HYDRATI ON/DEVANTE GAN 02/08 Released w/o Limitations [facility] [place] [address](C hemothe rapy [facility]) [place] [address](Rad iation Oncology [facility]) OUTPATIENT [id number] xrt ARELY [place] 02/09 Released w/o Limitations [facility] [place] [address](R adiatio n Oncolog y [facility]) [place] [address]([facility]) OUTPATIENT [id number] Notes Entered by: CHAYA TODD 09 Feb 2015 0846 ------- ------- ------- ------- -- IVF,LAB S/SAMANTHA HOUSTON 02/09 Released w/o Limitations [facility] [place] [address](C hemothe rapy [facility]) [place] [address](Aud iology [facility]) OUTPATIENT [id number] f/u chemo pt YOU GARCIAS 02/09 Released w/o Limitations [facility] [place] [address](A udiolog y [facility]) [place] [address]([facility] Primary [facility]) TELE CONSULT [id number] Notes Entered by: CHERYLE JIMENEZ 09 Feb 2015 1524 ------- ------- ------- ------- -- Profile Update KALEN ARREAGA 02/09 [facility] [place] [address]([facility]) [place] [address](Rad iation Oncology [facility]) OUTPATIENT [id number] xrt ARELY [place] 02/10 Released w/o Limitations [facility] [place] [address](R adiatio n Oncolog y [facility]) [place] [address](Rad iation Oncology [facility]) OUTPATIENT [id number] Notes Entered by: WENDY AKBAR 15 Feb 2015 0830 ------- ------- ------- ------- -- F/Up ARELY [place] 02/15 Released w/o Limitations [facility] [place] [address](R adiatio n Oncolog y [facility]) [place] [address](Carl e Managemen t [facility]) INPATIENT [id number] AJ Mackenzie ANNE 02/15 Inpatient- Still a Patient [facility] [place] [address](C ase Managem ent [facility]) [place] [address]([facility]) OUTPATIENT [id number] neutrop enic fever KALEN ARREAGA 02/15 Released w/o Limitations [facility] [place] [address]([facility]) [place] [address]([facility]) TELE CONSULT [id number] Notes Entered by: SCOUT MONTANA 15 Feb 2015 1315 ------- ------- ------- ------- -- pt consult KALEN ARREAGA 02/15 [facility] [place] [address]([facility]) [place] [address](Randolph laryngolo gy (ENT) [facility]) OUTPATIENT [id number] f/u chemo patient LAINEY JAY 02/16 Released w/o Limitations [facility] [place] [address](O lele hogan (ENT) [facility]) [place] [address](Calr e Managemen t [facility]) OUTPATIENT [id number] AJ Mackenzie 02/22 Released w/o Limitations [place] [address](C ase Managem ent [facility]) [place] [address](Carl e Managemen t [facility]) OUTPATIENT [id number] Notes Entered by: AJ DE LA ROSA 03 Mar 2015 0953 ------- ------- ------- ------- -- T-AJ Garcia 03/03 Released w/o Limitations [place] [address](C ase Managem ent [facility]) [place] [address](Carl e Managemen t [facility]) OUTPATIENT [id number] AJ Mackenzie 03/08 Released w/o Limitations [facility] [place] [address](C ase Managem ent [facility]) [place] [address](Carl e Managemen t [facility]) OUTPATIENT [id number] Notes Entered by: AJ DE LA ROSA 09 Mar 2015 0946 ------- ------- ------- ------- -- T-AJ Garcia 03/09 Released w/o Limitations [place] [address](C ase Managem ent [facility]) [place] [address](Carl e Managemen t [facility]) OUTPATIENT [id number] AJ Mackenzie 03/15 Released w/o Limitations [place] [address](C ase Managem ent [facility]) [facility] [place] [address](Carl e Managemen t [facility]) OUTPATIENT [id number] DARY Espinoza 03/23 Released w/o Limitations [facility] [place] [address](C ase Managem ent [facility]) [place] [address](Rad iation Oncology [facility]) OUTPATIENT [id number] 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 OF DARELL HODGSON 03/25 Released w/o Limitations [facility] [place] [address](H ematolo gy Oncolog y [facility]) [place] [address](Carl e Managemen t [facility]) OUTPATIENT [id number] Notes Entered by: AJ DE LA ROSA 30 Mar 2015 1354 ------- ------- ------- ------- -- weekly f/u AJ VARELA 03/30 Released w/o Limitations [facility] [place] [address](C ase Managem ent [facility]) [place] [address](Carl e Managemen t [facility]) OUTPATIENT [id number] AJ Mackenzie 04/05 Released w/o Limitations [facility] [place] [address](C ase Managem ent [facility]) [place] [address](Randolph laryngolo gy (ENT) [facility]) OUTPATIENT [id number] Follow up LAINEY JAY 04/05 Released w/o Limitations ESTRELLITA [place] [address](O tolaryn gology (ENT) [facility]) [place] [address](Aud iology [facility]) OUTPATIENT [id number] F/U RE-EVAL YOU ASTUDILLO 04/06 Released w/o Limitations [facility] [place] [address](A udiolog y [facility]) [place] [address](Carl e Managemen t [facility]) OUTPATIENT [id number] lupilloyodit NICHOLEAJQUINCY Released w/o Limitations [facility] [place] [address](C ase Managem ent [facility]) [place] [address](Nut rition 5F Bed P[employer] [facility]) OUTPATIENT [id number] FOLLOW UP/GTUB E KAVIN HUDSON 04/12 Released w/o Limitations [facility] [place] [address](N utritio n 5F Bed [employer]ax[employer] [facility]) [place] [address](Carl e Managemen t [facility]) OUTPATIENT [id number] AJ Mackenzie 04/18 Released w/o Limitations [facility] [place] [address](C ase Managem ent [facility]) [place] [address]([facility]) OUTPATIENT [id number] 30 DAY EVAL KALEN ARREAGA 04/19 Released w/o Limitations [facility] [place] [address]([facility]) [place] [address](Nut rition 5F Bed [employer] [facility]) OUTPATIENT [id number] Notes Entered by: HARVEY HE 23 Apr 2015 1257 ------- ------- ------- ------- -- f/u PEG nutriti on KAVIN HUDSON 04/22 Released w/o Limitations [facility] [place] [address](N utritio n 5F Bed Paxinos [facility]) [facility] [place] [address]([facility] ri[facility] Primary Care [facility]) TELE CONSULT [id number] Notes Entered by: SCOUT MONTANA 23 Apr 2015 1414 ------- ------- ------- ------- -- pt call KALEN ARREAGA 04/22 [place] [address]([facility]) [place] [address](Carl e Managemen t [facility]) OUTPATIENT [id number] AJ Mackenzie 04/25 Released w/o Limitations [facility] [place] [address](C ase Managem ent [facility]) [place] [address](End ocrinolog y [facility]) OUTPATIENT [id number] abnorma l thyroid functio n GV_MAURICE SCRUGGS A 04/26 Released w/o Limitations [facility] [place] [address](E ndocrin ology [facility]) [place] [address](Carl e Managemen t [facility]) OUTPATIENT [id number] Notes Entered by: AJ DE LA ROSA 05 May 2015 1543 ------- ------- ------- ------- -- T-AJ Garcia 05/04 Released w/o Limitations [facility] [place] [address](C ase Managem ent [facility]) [place] [address](Carl e Managemen t [facility]) OUTPATIENT [id number] Notes Entered by: AJ DE LA ROSA 11 May 2015 0932 ------- ------- ------- ------- -- Weekly f/u AJ VARELA 05/10 Released w/o Limitations [facility] [place] [address](C ase Managem ent [facility]) [place] [address]([facility] Re[facility] ation [facility]) OUTPATIENT [id number] Notes Entered by: Kendy LUIS 11 May 2015 1014 ------- ------- ------- ------- -- Scrimma ge TAYA LUIS 05/10 Released w/o Limitations [facility] [place] [address]([facility] Rehabil itation [facility]) [place] [address](Carl e Managemen t [facility]) OUTPATIENT [id number] Notes Entered by: AJ DE LA ROSA 11 May 2015 1429 ------- ------- ------- ------- -- Scrimma ge AJ VARELA 05/10 Released w/o Limitations [facility] [place] [address](C ase Managem ent [facility]) [place] [address](Carl e Managemen t [facility]) OUTPATIENT [id number] AJ Mackenzie 05/16 Released w/o Limitations [facility] [place] [address](C ase Managem ent [facility]) [place] [address](Nut rition 5F Bed Paxinos [facility]) OUTPATIENT [id number] f/u KAVIN HUDSON 05/17 Released w/o Limitations [facility] [place] [address](N utritio n 5F Bed Paxinos [facility]) [place] [address](Rad iation Oncology [facility]) TELE CONSULT [id number] ARELY [place] 05/18 [facility] [place] [address](R adiatio n Oncolog y [facility]) [place] [address](U Rehabilit ation Clinic) OUTPATIENT [id number] F/U BARTON PLAN/WO RK EMERALD LUISISO C 05/18 Released w/o Limitations [facility] [place] [address](S Rehabil itation Clinic) [place] [address]([facility] OUTPATIENT [id number] AJ Mackenzie 05/23 Released w/o Limitations [facility] [place] [address](C ase Managem ent [facility]) [place] [address]([place] laryngolo gy (ENT) [facility]) OUTPATIENT [id number] f/u pet scan LAINEY JAY Faith 05/23 Released w/o Limitations [facility] [place] [address](O lele goljaciel (ENT) [facility]) [place] [address](Nut rition 5F Bed Paxinos [facility]) OUTPATIENT [id number] f/u abnorma l weight loss KAVIN HUDSON N 05/24 Released w/o Limitations [facility] [place] [address](N utritio n 5F Bed Paxinos [facility]) [place] [address](Rad iation Oncology [facility]) OUTPATIENT [id number] f/u head and neck ARELY [place] 05/25 Released w/o Limitations [facility] [place] [address](R adiatio n Oncolog y [facility]) [place] [address](Carl e Managemen t [facility]) OUTPATIENT [id number] AJ Mackenzie 05/30 Released w/o Limitations [facility] [place] [address](C ase Managem ent [facility]) [place] [address](End ocrinolog y [facility]) TELE CONSULT [id number] Notes Entered by: MARLEEN RAMIREZ 03 Jun 2015 1530 ------- ------- ------- ------- -- PT CALLED CLINIC KAMERONMAURICE FERREIRA 06/02 [facility] [place] [address](E ndirma morrell [facility]) [place] [address](Nut rition 5F Bed Paxinos [facility]) OUTPATIENT [id number] Notes Entered by: HARVEY HE N 04 Jun 2015 1307 ------- ------- ------- ------- -- f/u PEG assessm ent KAVIN HUDSON 06/03 Released w/o Limitations [facility] [place] [address]([facility] [place] [address](Carl e Managemen t [facility]) OUTPATIENT [id number] AJ Mackenzie 06/06 Released w/o Limitations [facility] [place] [address](C ase Managem ent [facility]) [place] [address]([facility] Primary Care [facility]) OUTPATIENT [id number] SLEEP ISSUES KALEN ARREAGA 06/07 Released w/o Limitations [facility] [place] [address]([facility]) [place] [address](Nut rition 5F Bed Paxinos [facility]) OUTPATIENT [id number] Notes Entered by: HARVEY HE N 11 Jun 2015 1257 ------- ------- ------- ------- -- f/u PEG eval KAVIN HUDSON 06/10 Released w/o Limitations [facility] [place] [address](N utritio n 5F Bed Paxinos [facility]) [place] [address](Carl e Managemen t [facility]) OUTPATIENT [id number] SAMI MERLE 06/13 Released w/o Limitations [facility] [place] [address](C ase Managem ent [facility]) [place] [address](Carl e Managemen t [facility]) OUTPATIENT [id number] akil GALLARDO MERLE 06/20 Released w/o Limitations [facility] [place] [address](C ase Managem ent [facility]) [place] [address]([place] laryngolo gy (ENT) [facility]) OUTPATIENT [id number] 1M F/U FOR NECK PIERRE LAINEY Faith 06/20 Released w/o Limitations [facility] [place] [address](O tolaryn gology (ENT) [facility]) [place] [address](Rad iation Oncology [facility]) TELE CONSULT [id number] ARELY [place] 06/20 [facility] [place] [address](R adiatio n Oncolog y [facility]) [place] [address](Int ervention al Radiology [facility]) OUTPATIENT [id number] 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, face and JOSE ALEJANDRO, KHADAR H 06/24 Released w/o Limitations [facility] [place] [address](I nterven tional Radiolo gy [facility]) [place] [address](Carl e Managemen t [facility]) OUTPATIENT [id number] akil GALLARDOMERLE 06/27 Released w/o Limitations [facility] [place] [address](C ase Managem ent [facility]) [place] [address]([facility] rior Primary Care [facility]) OUTPATIENT [id number] INITIAL VISIT W/PCM - PHIL PERALTA 06/30 Released w/o Limitations [facility] [place] [address]([facility]) [place] [address](Carl e Managemen t [facility]) OUTPATIENT [id number] Notes Entered by: MERA MANJARREZ 07 Jul 2015 1030 ------- ------- ------- ------- -- weekly appt DARY MANJARREZ 07/06 Released w/o Limitations [facility] [place] [address](C ase Managem ent [facility]) [place] [address](Rad iation Oncology [facility]) OUTPATIENT [id number] F/u ARELY WASHINGTON 07/08 Released w/o Limitations [facility] [place] [address](R adiatio n Oncolog y [facility]) [place] [address](Carl e Managemen t [facility]) OUTPATIENT [id number] Notes Entered by: Edwin GALLARDO 14 Jul 2015 1020 ------- ------- ------- ------- -- MERLE Doss 07/13 Released w/o Limitations [facility] [place] [address](C ase Managem ent [facility]) [place] [address](Carl e Managemen t [facility]) OUTPATIENT [id number] weekly f/u MERLE GALLARDO 07/18 Released w/o Limitations [facility] [place] [address](C ase Managem ent [facility]) [place] [address](Carl e Managemen t [facility]) OUTPATIENT [id number] weekly f/u MERLE GALLARDO 07/25 Released w/o Limitations [facility] [place] [address](C ase Managem ent [facility]) [place] [address](Carl e Managemen t [facility]) OUTPATIENT [id number] Notes Entered by: MARTIN CONNER 27 Jul 2015 0931 ------- ------- ------- ------- -- MERLE Barksdale 07/26 Released w/o Limitations [facility] [place] [address](C ase Managem ent [facility]) [facility], [place] [address]([facility] Rehabilit ation [facility]) OUTPATIENT [id number] Notes Entered by: MADHU FLEMING 27 Jul 2015 1642 ------- ------- ------- ------- -- MARCELINO RODRÍGUEZ 07/26 Released w/o Limitations [facility] [place] [address]([facility] Rehabil itation [facility]) [facility], [place] [address]([facility] [id number] cherry follow up MARCELINO ZIMMERMAN 07/29 Released w/o Limitations [facility] [place] [address]([facility], [place] [address](Carl e Managemen [facility]) OUTPATIENT [id number] weekly f/u MERLE GALLARDO 08/01 Released w/o Limitations [facility] [place] [address](C ase Managem ent [facility]) [place] [address]([place] laryngolo gy (ENT) [facility]) OUTPATIENT [id number] 1m f/u per LAINEY Rodríguez 08/01 Released w/o Limitations [place] [address](Alok hogan (ENT) [facility]) [place] [address]([facility] [id number] 30 DAY F/U PHIL DARBY 08/05 Released w/o Limitations ESTRELLITA [place] [address]([facility]) [place] [address](Carl e Managemen t [facility]) OUTPATIENT [id number] weekly f/u GALLARDOMERLE 08/08 Released w/o Limitations [facility] [place] [address](C ase Managem [facility]) [place] [address]([facility]) TELE CONSULT [id number] Notes Entered by: Nicole DARBY 10 Aug 2015 1159 ------- ------- ------- ------- -- x-ray result PHIL DARBY 08/09 [facility] [place] [address]([facility]) [place] [address](Carl e Managemen [facility]) OUTPATIENT [id number] Notes Entered by: MARION CLARK 18 Aug 2015 1440 ------- ------- ------- ------- -- weekly MARION GALDAMEZ 08/17 Released with Work/Duty Limitations [facility] [place] [address](C ase Managem ent [facility]) [place] [address]([facility]) TELE CONSULT [id number] Notes Entered by: ROSALBA MCKENNA 19 Aug 2015 1321 ------- ------- ------- ------- -- Treatme nt plan for CCU packet PHIL DARBY 08/18 [facility] [place] [address]([facility]) [place] [address](End ocrinolog [facility]) OUTPATIENT [id number] F/U KAMERON_MAURICE SCRUGGS 08/24 Released w/o Limitations [facility] [place] [address](E ndocrin ology [facility]) [place] [address](Carl e Managemen t [facility]) OUTPATIENT [id number] Notes Entered by: MARION CLARK 26 Aug 2015 1431 ------- ------- ------- ------- -- weekly MARION GALDAMEZ 08/25 Released with Work/Duty Limitations [facility] [place] [address](C ase Managem ent [facility]) [place] [address](Carl e Managemen t [facility]) OUTPATIENT [id number] weekly f/u MERLE GALLARDO 08/29 Released w/o Limitations [facility] [place] [address](C ase Managem ent [facility]) [place] [address](Carl e Managemen t [facility]) OUTPATIENT [id number] weekly f/u MERLE GALLARDO 09/05 Released w/o Limitations [facility] [place] [address](C ase Managem ent [facility]) [place] [address]([place] laryngolo gy (ENT) [facility]) OUTPATIENT [id number] 1m f/u per /dr.b yakov beauchamp to modify LAINEY JAY 09/05 Released w/o Limitations [facility] [place] [address](O lele hogan (ENT) [facility]) [place] [address]([facility]) OUTPATIENT [id number] 30 DAY F/U PHIL DARBY 09/09 Released w/o Limitations [facility] [place] [address]([facility]) [place] [address](Carl e Managemen t [facility]) OUTPATIENT [id number] weekly f/u MERLE GALLARDO 09/12 Released w/o Limitations [facility] [place] [address](C ase Managem ent [facility]) [place] [address](Phy sical Therapy [facility]) OUTPATIENT [id number] Pain in right shoulde r JUN WHITLEY N 09/14 Released w/o Limitations [facility] [place] [address](P hysical Therapy [facility]) [place] [address](Carl e Managemen t [facility]) OUTPATIENT [id number] weekly f/u MERLE GALLARDO 09/19 Released w/o Limitations [facility] [place] [address](C ase Managem ent [facility]) [place] [address]([facility]) TELE CONSULT [id number] Notes Entered by: Nicole DARBY 20 Sep 2015 1743 ------- ------- ------- ------- -- lab result PHIL DARBY 09/19 [facility] [place] [address]([facility]) [place] [address](War [facility]ad[facility]) TELE CONSULT [id number] Notes Entered by: Nicole DARBY 22 Sep 2015 1451 ------- ------- ------- ------- -- profile update PHIL DARBY 09/21 [facility] [place] [address]([facility]) [place] [address](Carl e Managemen t [facility]) OUTPATIENT [id number] weekly f/u MERLE GALLARDO 09/26 Released w/o Limitations [facility] [place] [address](C ase Managem ent [facility]) [place] [address](Phy sical Therapy [facility]) OUTPATIENT [id number] JUN Cervantes N 09/26 Released w/o Limitations [facility] [place] [address](P hysical Therapy [facility]) [place] [address](War rior Primary [facility]) OUTPATIENT [id number] DISCUSS PROBABL E MEB/GO PHIL RUST S 09/27 Released w/o Limitations [facility] [place] [address](W ar[facility] Primary Care [facility]) [place] [address](Carl e Managemen t [facility]) OUTPATIENT [id number] weekly f/u MERLE GALLARDO 10/03 Released w/o Limitations [facility] [place] [address](C ase Managem ent [facility]) [place] [address]([place] laryngolo gy (ENT) [facility]) OUTPATIENT [id number] Appt auth by LAINEY Engel 10/04 Released w/o Limitations [facility] [place] [address](O lele hogan (ENT) [facility]) [place] [address](Carl e Managemen t [facility]) OUTPATIENT [id number] weekly f/u MERLE GALLARDO 10/10 Released w/o Limitations [facility] [place] [address](C ase Managem ent [facility]) [facility] [place]([facility] Primary Care-Old) OUTPATIENT [id number] B INITIAL EVALUAT ABIMAEL IBANNIDHI ESCALERA 10/12 Released with Work/Duty Limitations [facility] Primary Care-Ol d) [facility] Case Managemen t) OUTPATIENT [id number] Notes Entered by: MELISSA ESPARZA 13 Oct 2015 1038 ------- ------- ------- ------- -- Intake RA MELISSA ESPARZA 10/12 Released with Work/Duty Limitations [facility] Case Managem ent) [facility] Case Managemen t) OUTPATIENT [id number] Notes Entered by: MELISSA ESPARZA 13 Oct 2015 1107 ------- ------- ------- ------- -- NCM Initial Intake MELISSA ESPARZA 10/12 Released with Work/Duty Limitations SIMONA Monet([facility] Case Managem ent) [facility] Primary Care-Old) OUTPATIENT [id number] WTB INITIAL EVALUAT ION LONI MIGUEL 10/18 Released w/o Limitations [facility] Primary Care-Ol d) [facility] OT/PT-Old ) OUTPATIENT [id number] WTB GOAL SETTING MAXIME PARR 10/19 Released with Work/Duty Limitations [facility] OT/PT-O ld) [facility](Medica l Board Processin g) OUTPATIENT [id number] MRDP (This is a records review only, SM not needed at APT) GEOVANY MACKEY 10/19 Released w/o Limitations [facility] [place]([facility] cristóbal Board Process ing) [facility] Case Managemen t) OUTPATIENT [id number] Notes Entered by: MELISSA ESPARZA 21 Oct 2015 1050 ------- ------- ------- ------- -- Weekly NCM encount er MELISSA ESPARZA 10/20 Released with Work/Duty Limitations [facility] Case Managem ent) [facility] OT/PT-Old ) OUTPATIENT [id number] WTB INITIAL EVALUAT ION MARTIR MUELLER 10/24 Released with Work/Duty Limitations [facility] OT/PT-O ld) [facility](Deploy ment) OUTPATIENT [id number] [facility] INPROCE SS PEGGY SUN Chuck August 10/25 Released w/o Limitations [facility](Depl oyment) [facility] Case Managemen t) OUTPATIENT [id number] Notes Entered by: MELISSA ESPARZA 27 Oct 2015 1158 ------- ------- ------- ------- -- Weekly NCM encount MELISSA Marcos 10/26 Released with Work/Duty Limitations [facility] Case Managem ent) [facility] OT/PT-Old ) OUTPATIENT [id number] [facility] INITIAL EVALUAT REGGIE GOLD 10/31 Released w/o Limitations [facility] OT/PT-O ld) [facility] Primary Care-Old) TELE CONSULT [id number] Notes Entered by: Kemi FERRERA 01 Nov 2015 1139 ------- ------- ------- ------- -- ent NIDHI Sanabria 10/31 [facility] Primary Care-Ol d) [facility] OT/PT-Old ) OUTPATIENT [id number] [facility] MARTIR BARNES 10/31 Released with Work/Duty Limitations [facility] OT/PT-O ld) [facility] Case Managemen t) OUTPATIENT [id number] Notes Entered by: MELISSA ESPARZA 02 Nov 2015 1613 ------- ------- ------- ------- -- Weekly NCM encount MELISSA Marcos 11/01 Released with Work/Duty Limitations SIMOAN Monte([facility] Case Managem ent) [facility] [place]([facility] Primary Care-Old) OUTPATIENT [id number] WT 30 DAY NIDHI CARCAMO R 11/03 Released with Work/Duty Limitations [facility] [place]([facility] Primary Care-Ol d) [facility] Case Managemen t) OUTPATIENT [id number] Notes Entered by: MELISSA ESPARZA 08 Nov 2015 1344 ------- ------- ------- ------- -- MELISSA Hart 11/07 Released with Work/Duty Limitations [facility] Case Managem ent) [facility] OT/PT-Old ) OUTPATIENT [id number] WT AQUATIC S MAXIME PARR R 11/07 Released with Work/Duty Limitations [facility] OT/PT-O ld) [facility] Case Managemen t) OUTPATIENT [id number] Notes Entered by: ANTONIO QUACH 11 Nov 2015 1554 ------- ------- ------- ------- -- salvador r to CCU meeting ANTONIO QUACH 11/10 Released w/o Limitations [facility] Case Managem ent) [facility] Case Managemen t) OUTPATIENT [id number] weekly NCM appt ANTONIO QUACH 11/15 Released w/o Limitations [facility] Case Managem ent) [facility] Case Managemen t) OUTPATIENT [id number] weekly NCM appt ANTONIO QUACH 11/23 Released w/o Limitations [facility] Case Managem ent) [facility] Case Managemen t) OUTPATIENT [id number] Notes Entered by: ANTONIO QUACH 02 Dec 2015 0856 ------- ------- ------- ------- -- f/u weekly NCM appt ANDERES, LENECE 12/01 Released w/o Limitations [facility] Case Managem ent) [facility] OT/PT-Old ) OUTPATIENT [id number] [facility] S MAXIME PARR R 12/05 Released with Work/Duty Limitations [facility] OT/PT-O ld) [facility] Primary Care-Old) OUTPATIENT [id number] WTB 30 DAY EVAL IBANNIDHI ESCALERA R 12/06 Released with Work/Duty Limitations [facility] Primary Care-Ol d) [facility] Case Managemen t) OUTPATIENT [id number] weekly NCM appt ANDERES, LENECE 12/06 Released w/o Limitations [facility] Case Managem ent) [facility] Primary Care-Old) OUTPATIENT [id number] swellin g side of neck NIDHI FERRERA R 12/08 Released with Work/Duty Limitations [facility] Primary Care-Ol d) [facility] Primary Care-Old) OUTPATIENT [id number] WTB 30 DAY REVIEW LONI MIGUEL 12/12 Released w/o Limitations [facility] Primary Care-Ol d) [facility] OT/PT-Old ) OUTPATIENT [id number] [facility] S MAXIME PARR R 12/12 Released with Work/Duty Limitations [facility] OT/PT-O ld) [facility] Case Managemen t) OUTPATIENT [id number] weekly NCM appt ANDERES, LENECE 12/13 Released w/o Limitations [facility] Case Managem ent) [facility] Case Managemen t) OUTPATIENT [id number] weekly NCM appt ANDERES, LENECE 12/21 Released w/o Limitations [facility] Case Managem ent) [facility]) OUTPATIENT [id number] [place] COMPENS ATION AND PENSION EXAM JENN OSEI 12/22 Released w/o Limitations [facility]) [facility] OT/PT-Old ) OUTPATIENT [id number] WTB AQUATIC S MAXIME PARR 12/26 Released with Work/Duty Limitations [facility] OT/PT-O ld) [facility] Case Managemen t) OUTPATIENT [id number] weekly NCM f/u ANTONIO QUACH 12/27 Released w/o Limitations [facility] Case Managem ent) [facility] OT/PT-Old ) OUTPATIENT [id number] WTB EQUINE THERAPY LANicoleSHANTEL S 12/27 Released with Work/Duty Limitations [facility] OT/PT-O ld) [facility]) OUTPATIENT [id number] [place] COMPENS ATION AND PENSION EXAM AHMET BATRES 12/29 Released w/o Limitations [facility]) [facility] Primary Care-Old) OUTPATIENT [id number] B 30 DAY BRANDAN CARCAMOMIS R 01/02 Released with Work/Duty Limitations [facility] Primary Care-Ol d) [facility] Case Managemen t) OUTPATIENT [id number] Notes Entered by: ANTONIO QUACH 03 Jan 2016 1603 ------- ------- ------- ------- -- weekly NCM follow up. ANTONIO QUACH 01/02 Released w/o Limitations [facility] Case Managem ent) [facility](Medica l Board Processin g) OUTPATIENT [id number] [facility] 03/23 (Dec 28) ROSANNA SPEARS 01/09 Released with Work/Duty Limitations SIMONA oMnte([facility] Board Process ing) [facility] Case Managemen t) OUTPATIENT [id number] Notes Entered by: CEDRICK WATTS 10 Jan 2016 0808 ------- ------- ------- ------- -- ncm weekly f/u CEDRICK WATTS 01/09 Released with Work/Duty Limitations [facility] Case Managem ent) [facility] Primary Care-Old) OUTPATIENT [id number] WTB 30 DAY LONI CACERES 01/10 Released w/o Limitations [facility] Primary Care-Ol d) [facility] Primary Care-Old) TELE CONSULT [id number] Notes Entered by: MARQUIS MIGUEL 11 Jan 2016 1318 ------- ------- ------- ------- -- Labs/Me d Request NIDHI FERRERA 01/10 [facility] Primary Care-Ol d) [facility] OT/PT-Old ) OUTPATIENT [id number] WTB 30 DAY REGGIE CÁRDENAS 01/11 Released w/o Limitations [facility] OT/PT-O ld) [facility] OT/PT-Old ) OUTPATIENT [id number] WTB 30 DAY KJAL MARTIR MUELLER 01/11 Released with Work/Duty Limitations [facility] OT/PT-O ld) [facility] Case Managemen t) OUTPATIENT [id number] Notes Entered by: CEDRICK WATTS 17 Jan 2016 0827 ------- ------- ------- ------- -- ncm weekly f/u CEDRICK WATTS 01/16 Released with Work/Duty Limitations [facility] [place]([facility] Case Managem ent) [facility] OT/PT-Old ) OUTPATIENT [id number] [facility] MAXIME TAY 01/16 Released with Work/Duty Limitations [facility] OT/PT-O ld) [facility] Case Managemen t) OUTPATIENT [id number] Notes Entered by: CEDRICK WATTS 26 Jan 2016 0736 ------- ------- ------- ------- -- ncm weekly f/u CEDRICK WATTS 01/25 Released with Work/Duty Limitations [facility] Case Managem ent) [facility] Case Managemen t) OUTPATIENT [id number] Notes Entered by: CEDRICK WATTS 02 Feb 2016 0831 ------- ------- ------- ------- -- wtb ncm f/u CEDRICK WATTS 02/01 Released with Work/Duty Limitations [facility] Case Managem ent) [facility] Case Managemen t) OUTPATIENT [id number] Notes Entered by: CEDRICK WATTS 09 Feb 2016 1524 ------- ------- ------- ------- -- ncm weekly f/u CEDRICK WATTS 02/08 Released with Work/Duty Limitations [facility] Case Managem ent) SIMONA oMnte([facility] Case Managemen t) OUTPATIENT [id number] Notes Entered by: CEDRICK WATTS 18 Feb 2016 0859 ------- ------- ------- ------- -- ncm weekly f/u CEDRICK WATTS M 02/17 Released with Work/Duty Limitations [facility] Case Managem ent) [facility] Case Managemen t) OUTPATIENT [id number] weekly NCM appt ANDJOHN, GRADY 02/21 Released w/o Limitations [facility] Case Managem ent) [facility] Case Managemen t) OUTPATIENT [id number] Notes Entered by: ANTONIO QUACH 02 Mar 2016 1018 ------- ------- ------- ------- -- weekly NCM appt ANDJOHNGRADY 03/02 Released w/o Limitations [facility] Case Managem ent) SIMNOA Monte([facility] Primary Care-Old) TELE CONSULT [id number] Notes Entered by: ANTONIO QUACH 03 Mar 2016 1332 ------- ------- ------- ------- -- referra l for Endocri nology on the Network NIDHI FERRERA 03/03 [facility] Primary Care-Ol d) [facility] Case Managemen t) OUTPATIENT [id number] weekly NCM appt ANDJOHN, GRADY 03/06 Released w/o Limitations [facility] Case Managem ent) [facility] Case Managemen t) OUTPATIENT [id number] weekly NCM appt ANDJOHN, GRADY 03/14 Released w/o Limitations [facility] Case Managem ent) [facility] Case Managemen t) OUTPATIENT [id number] weekly NCM appt ANDJOHN, GRADY 03/20 Released w/o Limitations [facility] Case Managem ent) [facility] Case Managemen t) TELE CONSULT [id number] Notes Entered by: ANTONIO QUACH 31 Mar 2016 0957 ------- ------- ------- ------- -- weekly contact by NCANTONIO VEGA 03/31 [facility] [place]([facility] Case Managem ent) [facility] Primary Care-Old) OUTPATIENT [id number] f/u, SRR NIDHI FERRERA 04/05 Released with Work/Duty Limitations [facility] [place]([facility] Primary Care-Ol d) [facility] Case Managemen t) OUTPATIENT [id number] Notes Entered by: ANTONIO QUACH 06 Apr 2016 1131 ------- ------- ------- ------- -- weekly NCM appt ANTONIO QUACH 04/06 Released w/o Limitations [facility] Case Managem ent) [facility] Primary Care-Old) OUTPATIENT [id number] f/u, SRR medicat ion LONI Jain 04/10 Released w/o Limitations [facility] Primary Care-Ol d) [facility] Case Managemen t) OUTPATIENT [id number] Notes Entered by: ANTONIO QUACH 10 Apr 2016 1520 ------- ------- ------- ------- -- weekly NCM appt ANTONIO QUACH 04/10 Released w/o Limitations SIMOAN Monte([facility] Case Managem ent) [facility] Monte(PENDING SALE TO [facility] [employer]) OUTPATIENT [id number] eye exam RACHELLE CARUSO 04/11 Released w/o Limitations [facility](PENDING SALE TO [facility] [employer]) [facility] OT/PT-Old ) OUTPATIENT [id number] Notes Entered by: REGGIE EPSTEIN 11 Apr 2016 1400 ------- ------- ------- ------- -- 90 day eval while on REGGIE DONOHUE 04/11 Released w/o Limitations [facility] OT/PT-O ld) [facility] Case Managemen t) OUTPATIENT [id number] Notes Entered by: ANTONIO QUACH 18 Apr 2016 1756 ------- ------- ------- ------- -- weekly NCM appt ANTONIO QUACH 04/18 Released w/o Limitations [facility] Case Managem ent) [facility] Case Managemen t) OUTPATIENT [id number] Notes Entered by: ANTONIO QUACH 24 Apr 2016 0912 ------- ------- ------- ------- -- weekly NCM appt ANTONIO QUACH 04/24 Released w/o Limitations [facility] Case Managem ent) [facility] Case Managemen t) OUTPATIENT [id number] Notes Entered by: MELISSA ESPARZA 02 May 2016 0916 ------- ------- ------- ------- -- Coverin g NCM encount MELISSA Marcos 05/02 Released with Work/Duty Limitations [facility] Case Managem ent) [facility] Case Managemen t) OUTPATIENT [id number] Notes Entered by: ANTONIO QUACH 11 May 2016 0743 ------- ------- ------- ------- -- weekly NCM appt ANTONIO QUACH 05/11 Released w/o Limitations [facility] Case Managem ent) [facility] Case Managemen t) TELE CONSULT [id number] Notes Entered by: ANTONIO QUACH 18 May 2016 1054 ------- ------- ------- ------- -- weekly NCM appt ANDANTONIO LOPEZ 05/18 [facility] Case Managem ent) [facility] Case Managemen t) OUTPATIENT [id number] Notes Entered by: ANTONIO QUACH 22 May 2016 0922 ------- ------- ------- ------- -- weekly NCM appt ANDANTONIO LOPEZ 05/22 Released w/o Limitations [facility] Case Managem ent) [facility] Case Managemen t) OUTPATIENT [id number] Notes Entered by: ANTONIO QUACH 29 May 2016 0952 ------- ------- ------- ------- -- weekly NCM appt ANDANTONIO LOPEZ 05/29 Released w/o Limitations SIMONA Monte([facility] Case Managem ent) SIMONA Monte([facility] Case Managemen t) TELE CONSULT [id number] Notes Entered by: ANTONIO QUACH 31 May 2016 0934 ------- ------- ------- ------- -- sick radha IBANNIDHI ESCALERA 05/31 [facility]ONA [facility] Case Managem ent) [facility] Case Managemen t) OUTPATIENT [id number] Notes Entered by: ANTONIO QUACH 06 Jun 2016 1644 ------- ------- ------- ------- -- weekly NCM appt ANDANTONIO LOPEZ 06/06 Released w/o Limitations SIMONA Monte([facility] Case Managem ent) [facility] Case Managemen t) OUTPATIENT [id number] Notes Entered by: ANTONIO QUACH 12 Jun 2016 1527 ------- ------- ------- ------- -- weekly NCM appt ANDANTONIO LOPEZ 06/12 Released w/o Limitations SIMONA Monte([facility] Case Managem ent) [facility]ONA Monte([facility] Case Managemen t) TELE CONSULT [id number] Notes Entered by: ANTONIO QUACH 21 Jun 2016 1324 ------- ------- ------- ------- -- [facility] Case Managem ent) [facility]ONA [facility] Case Managemen t) OUTPATIENT [id number] Notes Entered by: ANTONIO QUACH 27 Jun 2016 1354 ------- ------- ------- ------- -- weekly [facility] 06[facility]27 Released w/o Limitations SIMONA Monte([facility] Case Managem ent) SIMONA Monte([facility] Case Managemen t) TELE CONSULT [id number] Notes Entered by: ANTONIO QUACH 05 Jul 2016 1552 ------- ------- ------- ------- -- weekly NCM appt [facility] 07/05 [facility]ONA Monte([facility] Case Managem ent) [facility]ONA Monte([facility] Case Managemen t) OUTPATIENT [id number] Notes Entered by: ANTONIO QUACH 13 Jul 2016 0940 ------- ------- ------- ------- -- weekly NCM appt ANDANTONIO LOPEZ 07/13 Released w/o Limitations SIOMNA Monte([facility] Case Managem ent) SIMONA Monte([facility] Case Managemen t) TELE CONSULT [id number] Notes Entered by: ANTONIO QUACH 18 Jul 2016 1853 ------- ------- ------- ------- -- retro referra l for oncolog y appt 16 May 2016 NIDHI FERRERA 07/18 SIMONA Monte([facility] Case Managem ent) [facility]ONA Monte([facility] Case Managemen t) OUTPATIENT [id number] Notes Entered by: ANTONIO QUACH 25 Jul 2016 1437 ------- ------- ------- ------- -- weekly NCM appt ANTONIO QUACH 07/25 Released w/o Limitations [facility]ONA [facility] Case Managem ent) SIMONA Monte([facility] Primary Care-Old) OUTPATIENT [id number] SRR per NCM NIDHI FERRERA 07/31 Released with Work/Duty Limitations SIMONA Monte([facility] Primary Care-Ol [facility]) [facility] Monte([facility] Case Managemen t) OUTPATIENT [id number] Notes Entered by: ANTONIO QUACH 31 Jul 2016 1615 ------- ------- ------- ------- -- weekly NCM appt ANTONIO QUACH 07/31 Released w/o Limitations [facility]ONA Monte([facility] Case Managem ent) [facility]ONA Monte([facility] Case Managemen t) TELE CONSULT [id number] Notes Entered by: ANTONIO QUACH 02 Aug 2016 0951 ------- ------- ------- ------- -- memory concern from patient IBANNIDHI 08/02 SIMONA Monte([facility] Case Managem ent) [facility]ONA Monte([facility] Case Managemen t) OUTPATIENT [id number] Notes Entered by: ANTONIO QUACH 07 Aug 2016 1654 ------- ------- ------- ------- -- weekly NCM appt ANTONIO QUACH 08/07 Released w/o Limitations [facility]ONA [facility] Case Managem ent) [facility]ONA Monte([facility] Primary Care-Old) OUTPATIENT [id number] SRR f/u LONI MIGUEL 08/08 Released w/o Limitations [facility]ONA Monte([facility] Primary Care-[facility]) [facility]ONA [facility] ) OUTPATIENT [id number] ITITIAL tbi LAITH BARAKAT Ivette 08/09 Released w/o Limitations [facility]) [facility]ONA Monte([facility] Case Managemen t) TELE CONSULT [id number] Notes Entered by: LARA MASON 18 Aug 2016 1007 ------- ------- ------- ------- -- Camp counselor marriage and family or form NIDHI FERRERA 08/18 [facility] Case Managem ent) [facility]ONA [facility] Case Managemen t) OUTPATIENT [id number] Notes Entered by: ANTONIO QUACH 21 Aug 2016 1500 ------- ------- ------- ------- -- weekly NCM appt ANTONIO QUACH 08/21 Released w/o Limitations [facility]ONA Monte([facility] Case Managem ent) [facility]ONA Monte([facility] Primary Care-Old) TELE CONSULT [id number] Notes Entered by: ANTONIO QUACH 23 Aug 2016 1442 ------- ------- ------- ------- -- sleep study referNIDHI Parker 08/23 SIMONA Monte([facility] Primary [facility]) [facility] Case Managemen t) OUTPATIENT [id number] Notes Entered by: ANTONIO QUACH 29 Aug 2016 0852 ------- ------- ------- ------- -- weekly NCM appt ANTONIO QUACH 08/29 Released w/o Limitations [facility] Case Managem ent) [facility] Case Managemen t) OUTPATIENT [id number] Notes Entered by: ANTONIO QUACH 04 Sep 2016 0844 ------- ------- ------- ------- -- weekly NCM appt ANTONIO QUACH 09/04 Released w/o Limitations [facility] Case Managem ent) [facility] Case Managemen t) OUTPATIENT [id number] weekly visit LARA MASON P 09/19 Released with Work/Duty Limitations [facility]ONA [facility] Case Managem ent) [facility] Case Managemen t) OUTPATIENT [id number] Notes Entered by: LARA MASON P 22 Sep 2016 0943 ------- ------- ------- ------- -- LARA Odell P 09/22 Released with Work/Duty Limitations [facility]ONA [facility] Case Managem ent) [facility] Case Managemen t) OUTPATIENT [id number] Notes Entered by: ANTONIO QUACH 26 Sep 2016 0802 ------- ------- ------- ------- -- weekly NCM appt ANTONIO QUACH 09/26 Released w/o Limitations [facility] Case Managem ent) [facility] Case Managemen t) OUTPATIENT [id number] Notes Entered by: ANTONIO QUACH 03 Oct 2016 1345 ------- ------- ------- ------- -- weekly NCM appt ANTONIO QUACH 10/03 Released w/o Limitations [facility] Case Managem ent) [facility] Monte([facility] Case Managemen t) OUTPATIENT [id number] Notes Entered by: ANTONIO QUACH 09 Oct 2016 0752 ------- ------- ------- ------- -- weekly NCM appt ANDANTONIO LOPEZ 10/09 Released w/o Limitations [facility] Case Managem ent) [facility] Case Managemen t) TELE CONSULT [id number] Notes Entered by: ANTONIO QUACH 18 Oct 2016 1412 ------- ------- ------- ------- -- weekly NCM appt ANDANTONIO LOPEZ 10/18 [facility] Case Managem ent) [facility] Case Managemen t) OUTPATIENT [id number] Notes Entered by: ANTONIO QUACH 24 Oct 2016 1601 ------- ------- ------- ------- -- weekly NCM appt ANDANTONIO LOPEZ 10/24 Released w/o Limitations [facility] Case Managem ent) [facility] Case Managemen t) OUTPATIENT [id number] Notes Entered by: ANTONIO QUACH 31 Oct 2016 1336 ------- ------- ------- ------- -- weekly NCM appt ANDANTONIO LOPEZ 10/31 Released w/o Limitations [facility] Case Managem ent) [facility]ONA [facility] Primary Care-Old) OUTPATIENT [id number] [facility] SRR F/U NIDHI FERRERA 11/06 Released with Work/Duty Limitations SIMONA Monte([facility] Primary Care-Ol [facility]) [facility] Case Managemen t) OUTPATIENT [id number] Notes Entered by: ANTONIO QUACH 06 Nov 2016 1346 ------- ------- ------- ------- -- weekly NCM appt ANTONIO QUACH 11/06 Released w/o Limitations [facility] Monte([facility] Case Managem ent) [facility] Primary Care-Old) OUTPATIENT [id number] srr,NICOLE aKur 11/13 [facility] w/o Limitations [facility] Case Managemen t) OUTPATIENT [id number] Notes Entered by: ANTONIO QUACH 13 Nov 2016 1441 ------- ------- ------- ------- -- weekly NCM appt ANTONIO QUACH 11/13 Released w/o Limitations [facility]ONA Monte([facility] Case Managem ent) SIMOAN Monte([facility] OT/PT-Old ) OUTPATIENT [id number] SRR REGGIE MARTINO 11/14 Released with Work/Duty Limitations SIMONA Monte([facility] OT/PT-O ld) [facility]ONA Monte([facility] OT/PT-Old ) OUTPATIENT [id number] srr MARTIR Bernardo 11/14 Released with Work/Duty Limitations SIMONA Monte([facility] OT/PT-O ld) [facility] Case Managemen t) OUTPATIENT [id number] Notes Entered by: ANTONIO QUACH 21 Nov 2016 1557 ------- ------- ------- ------- -- weekly NCM appt ANTONIO QUACH 11/21 Released w/o Limitations [facility] Monte([facility] Case Managem ent) [facility] Case Managemen t) OUTPATIENT [id number] weekly NCM appt ANDJOHNGRADY 11/29 Released w/o Limitations SIMONA Monte([facility] Case Managem ent) [facility] Monte([facility] Case Managemen t) OUTPATIENT [id number] Notes Entered by: ANTONIO QUACH 04 Dec 2016 1128 ------- ------- ------- ------- -- weekly NCM appt ANDJOHNGRADY 12/04 Released w/o Limitations SIMONA Monte([facility] Case Managem ent) [facility] Case Managemen t) OUTPATIENT [id number] weekly NCM appt ANDANTONIO LOPEZ 12/12 Released w/o Limitations [facility] Case Managem ent) [facility]ONA Monte([facility] Primary Care-Old) TELE CONSULT [id number] Notes Entered by: ANTONIO QUACH 13 Dec 2016 0924 ------- ------- ------- ------- -- dawson ansari l to NIDHI NEWELL 12/13 SIMONA Monte([facility] Primary Care-[facility]) [facility]ONA Monte([facility] Case Managemen t) OUTPATIENT [id number] Notes Entered by: ANTONIO QUACH 18 Dec 2016 1115 ------- ------- ------- ------- -- weekly NCM appt ANDJOHN GRADY 12/18 Released w/o Limitations SIMONA Monte([facility] Case Managem ent) [facility] Monte([facility] Case Managemen t) OUTPATIENT [id number] weekly NCM appt ANDANTONIO LOPEZ 12/26 Released w/o Limitations [facility] Case Managem ent) [facility] Case Managemen t) OUTPATIENT [id number] weekly NCM appt ANDJOHN, LENECE 01/01 Released w/o Limitations SIMONA Monte([facility] Case Managem ent) SIMONA Monte([facility] Primary [facility]) TELE CONSULT [id number] Notes Entered by: ANTONIO QUACH 01 Jan 2017 0757 ------- ------- ------- ------- -- retro Leonard referra bret FERRERA [facility] R 01/01 SIMONA Monte([facility] d) [facility] Monte([facility] TELE CONSULT [id number] Notes Entered by: ANTONIO QUACH 01 Jan 2017 0805 ------- ------- ------- ------- -- retro referra l for oncolog y [facility]/01 SIMONA Monte([facility] d) SIMONA Monte([facility] Case Managemen t) OUTPATIENT [id number] weekly NCM appt ANTONIO QUACH 01/08 Released w/o Limitations SIMONA Monte([facility] Case Managem ent) SIMONA Monte([facility]) OUTPATIENT [id number] srr,[facility] IBAN [facility] R 01/10 Released with Work/Duty Limitations SIMONA Monte([facility]) SIMONA Monte([facility] Case Managemen t) OUTPATIENT [id number] Notes Entered by: ANTONIO QUACH 15 Jan 2017 1445 ------- ------- ------- ------- -- weekly NCM appt ANTONIO QUACH 01/15 Released w/o Limitations SIMONA Monte([facility] Case Managem ent) SIMONA Monte([facility] Case Managemen t) OUTPATIENT [id number] Notes Entered by: SHER FLORIAN F 15 Jan 2017 1525 ------- ------- ------- ------- -- [place] MARGARITA Leonard 01/15 Released w/o Limitations [place] SIMONA Mark([facility] Case Managem ent) [place] Primary Care-Old) OUTPATIENT [id number] srr,ccu LONI MIGUEL 01/16 [place]ased w/o Limitations [place] Primary [facility]) [place] Primary Care-Old) TELE CONSULT [id number] Notes Entered by: ANTONIO QUACH 18 Jan 2017 0952 ------- ------- ------- ------- -- referra queen to DE NIDHI DWYER 01/18 SIMONA Monte([facility] Primary Care-Ol [facility]) [facility] Case Managemen t) OUTPATIENT [id number] weekly NCM appt ANTONIO QUACH 01/23 Released w/o Limitations SIMONA Monte([facility] Case Managem ent) [facility] Monte([facility] Case Managemen t) OUTPATIENT [id number] WEEKLY NCM F./U JES SHAIKH GUS 02/01 Released w/o Limitations SIMONA Monte([facility] Case Managem ent) [facility]ONA Monte([facility] Case Managemen t) OUTPATIENT [id number] Notes Entered by: SONDRA SHAIKH 07 Feb 2017 0912 ------- ------- ------- ------- -- Telepho ne weekly f/u EJS SHAIKH GUS 02/07 Released w/o Limitations SIMONA Monte([facility] Case Managem ent) SIMONA Monte([facility] Case Managemen t) OUTPATIENT [id number] Notes Entered by: SONDRA SHAIKH GUS 16 Feb 2017 1538 ------- ------- ------- ------- -- Telepho robert weekly f/u JES SHAIKH GUS 02/16 Released w/o Limitations [employer] SIMONA([facility] Case Managem ent) [employer] SIMONA([facility] Case Managemen t) OUTPATIENT [id number] weekly NCM appt JES SHAIKH GUS 02/20 Released w/o Limitations [employer] SIMONA([facility] Case Managem ent) [place]) OUTPATIENT [id number] TDRL APPT - T-BROOKS MARIA 10/14 Released with Work/Duty Limitations [place]) [facility] PSYTX W PT 45 MINUTES [id number] [id number] Diagnos is: ICD-10- CM F43.21 Adjustm ent disorde r with depress ed mood
MENTON,RIA QUIROZM H 07/03 [facility] PSYTX W PT 45 MINUTES [id number] [id number] 09 Diagnos is: ICD-10- CM F43.21 Adjustm ent disorde r with depress ed mood
MENTON,RIA QUIROZM H 07/11 [facility] PSYCL TST EVAL PHYS/QHP 1ST [id number] [id number] 03 Diagnos is: ICD-10- CM F43.21 Adjustm ent disorde r with depress ed mood
MENTON,RIA JEOVANY H 07/18 [facility] PSYTX W PT 45 MINUTES [id number] [id number] Diagnos is: ICD-10- CM F43.21 Adjustm ent disorde r with depress ed mood
MENTON,RIA JEOVANY H 08/01 [facility] PSYTX W PT 45 MINUTES 25597-8.61 [id number] 85 Diagnos is: ICD-10- CM F43.21 Adjustm ent disorde r with depress ed mood
RIA YANES H 08/21 [facility] [place] [facility] Outpatient Encounter [id number] 08/30 [place] [facility] Outpatient Encounter [id number] 09/05 [facility] [place] [facility] Outpatient Encounter [id number] 09/05 [place] [facility] PSYTX W PT 45 MINUTES [id number] [id number] Diagnos is: ICD-10- CM F43.21 Adjustm ent disorde r with depress ed mood
RIA YANESM H 09/05 [facility] [place] [facility] Outpatient Encounter [id number] HERB,REKHA NDA J 09/06 [place] [facility] PSYTX W PT 45 MINUTES [id number] [id number] 45 Diagnos is: ICD-10- CM F43.21 Adjustm ent disorde r with depress ed mood
MENTRIA ACEVEDO JEOVANY H 09/25 [facility] PSYTX W PT 45 MINUTES 38903-4.61 [id number] 90 Diagnos is: ICD-10- CM F43.21 Adjustm ent disorde r with depress ed mood
MENTRIA ACEVEDO JEOVANY H 10/09 [facility] PSYTX W PT 45 MINUTES [id number] [id number] 28 Diagnos is: ICD-10- CM F43.21 Adjustm ent disorde r with depress ed mood
MENTRIA ACEVEDO JEOVANY H 10/23 [facility] PSYTX W PT 45 MINUTES 95608-6.61 [id number] 84 Diagnos is: ICD-10- CM F43.21 Adjustm ent disorde r with depress ed mood
MENTONRIA H 11/07 [facility] PSYTX W PT 45 MINUTES 04394-7.61 [id number] 84 Diagnos is: ICD-10- CM F43.21 Adjustm ent disorde r with depress ed mood
MENTONRIA H 12/04 [facility] PSYTX W PT 45 MINUTES 62050-0.61 [id number] 11 Diagnos is: ICD-10- CM F43.21 Adjustm ent disorde r with depress ed mood
MENTONRIA H 01/01 [facility] [place] [facility] Outpatient Encounter [id number] 01/24 [place] [facility] [place] [facility] Outpatient Encounter [id number] 03/06 [place] [facility] [place] [facility] Outpatient Encounter [id number] 03/13 [place] [facility] [place] [facility] Outpatient Encounter [id number] 03/26 [place] [facility] [place] [facility] Outpatient Encounter [id number] 03/29 [place] [facility] [place] [facility] Outpatient Encounter [id number] HERB,REKHA NDA J 04/03 [place] [facility] [place] [facility] Outpatient Encounter [id number] 04/04 [place] [facility] [place] [facility] Outpatient Encounter [id number] 04/30 [place] [facility] [place] [facility] Outpatient Encounter [id number] HERB,REKHA NDA J 05/01 [facility] [place] [facility] Outpatient Encounter [id number] 06/12 [place] [facility] [place] [facility] Outpatient Encounter [id number] 06/26 [place] [facility] NEW MOD 45 MIN 18291-3.61 [id number] 60 Diagnos is: ICD-10- CM C76.0 Maligna nt neoplas m of head, face and neck
DEREK PATTON D 06/26 [facility] [place] [facility] Outpatient Encounter [id number] Diagnos is: ICD-10- CM C76.0 Maligna nt neoplas m of head, face and neck
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
ALLEGRA GOULD 07/23 [place] [facility] [place] [facility] Outpatient Encounter [id number] 07/24 [facility] [place] [facility] OFFICE O/P NEW LOW 30 MIN [id number] [id number] Diagnos is: ICD-10- CM C76.0 Maligna nt neoplas m of head, face and neck
GLORIA-GR CURTIS HAMILTON E 08/14 [facility] IN[facility]PIAT CBOC IMMUNIZATI ON ADMIN [id number] [id number] Diagnos is: ICD-10- CM Z23 Encount er for immuniz ation<b r/> POPLIN,CHANG INE D 09/02 [facility] [place] [facility] Outpatient Encounter [id number] 09/06 [place] [facility] [place] [facility] Outpatient Encounter [id number] 09/30 [place] [facility] [place] [facility] Outpatient Encounter [id number] 09/30 [place] [facility] ORAL FUNCTION THERAPY [id number] [id number] Diagnos is: ICD-10- CM C76.0 Maligna nt neoplas m of head, face and neck
Kemi LACEY 09/30 [place] [facility] [place] [facility] Outpatient Encounter [id number] 10/07 [place] [facility] [place] [facility] Outpatient Encounter [id number] 10/11 [place] [facility] PT EVAL LOW COMPLEX 20 MIN [id number] [id number] Diagnos is: ICD-10- CM G89.29 Other chronic pain
ADRI TORRES 11/27 [facility] [place] [facility] Outpatient Encounter [id number] Bret VENTURA 12/16 [facility] [place] [facility] Outpatient Encounter [id number] 12/17 [place] [facility] [place] [facility] THERAPEUTI C EXERCISES [id number] [id number] Diagnos is: ICD-10- CM M25.512 Pain in left shoulde r
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
EXCONDE,RU PERT E 01/01 [facility] Procedures Combined list of: 1) Procedures from Department of Veterans Affairs facilities going back up to thelast 18 months, not all [place] non-surgical procedures are included; 2) All procedures from the Department of Defense facilities. Procedure Procedure Type Code Date Perfomer Comments Sour e Case Management, each 15 minutes 02/21 JES SHAIKH Targeted assessment Multidisciplinary conferences Individual emotional support Patient activation simple [facility] Coordinated care fee, risk adjusted maintenance, Level 3 02/21 JES SHAIKH [facility] Case Management, each 15 minutes 02/18 JES SHAIKH Targeted assessment Multidisciplinary conferences Individual emotional support Patient activation simplex [facility] Coordinated care fee, risk adjusted maintenance 02/18 JES SHAIKH [facility] Mental health services, not otherwise specified 02/08 SAUNDRA PEREZ [facility] Case Management, each 15 minutes 02/07 JES SHAIKH Targeted assessment Individual emotional support VMM left [facility] Coordinated care fee, risk adjusted maintenance 02/07 JES SHAIKH [facility] Case Management, each 15 minutes 02/03 JES SHAIKH Targeted assessment Individual emotional support [facility] Coordinated care fee, risk adjusted maintenance 02/03 JES SHAIKH [facility] Coordinated care fee, risk adjusted maintenance, Level 3 01/23 ANTONIO QUACH [facility] Case Management, each 15 minutes 01/23 ANTONIO QUACH targeted assessment x 6 units coordination of a service x4 units follow up single service x2 [facility] Mental health services, not otherwise specified 01/18 SAUNDRA PEREZ [facility] Clinical Social Work Individual Outpatient Counseling 30 Minutes Clinical Social Work Individual Outpatient Counseling 30 Minutes 19505 01/16 MIGEL CASTANEDA Do[facility] Medication Management By Pharmacist Initial 15 Minutes Established Patient Medication Management By Pharmacist Initial 15 Minutes Established Patient [id number] 01/16 LONI MIGUEL [facility] Case Management, each 15 minutes 01/15 MARGARITA NORRIS [facility] Coordinated care fee, risk adjusted maintenance, Level 3 01/15 ANDERES, ANTONIO [facility] Case Management, each 15 minutes 01/15 ANDANTONIO LOPEZ targeted assessment x 6 units coordination of a service x4 units follow up single service x2 DoD Coordinated care fee, risk adjusted maintenance, Level 3 01/08 ANDERES, LENGRADY [facility] Case Management, each 15 minutes 01/08 ANDANTONIO LOPEZ targeted assessment x 6 units [...] fee, risk adjusted maintenance, Level 3 12/27 ANDERES, ANTONIO DoD Case Management, each 15 minutes 12/27 ANDERESANTONIO targeted assessment x 6 units coordination of a service x4 units follow up single service x2 DoD Coordinated care fee, risk adjusted maintenance, Level 3 12/18 ANDERES, ANTONIO DoD Case Management, each 15 minutes 12/18 ANDERESANTONIO targeted assessment x 6 units coordination of a service x4 units follow up single service x2 DoD Coordinated care fee, risk adjusted maintenance, Level 3 12/12 ANDERES, ANTONIO DoD Case Management, each 15 minutes 12/12 ANDERESANTONIO targeted assessment x 6 units coordination of a service x4 units follow up single service x2 DoD Case Management, each 15 minutes 12/04 ANDERESANTONIO targeted assessment x 6 units coordination of a service x4 units follow up single service x2 DoD Coordinated care fee, risk adjusted maintenance, Level 3 12/04 ANDERES, LENECE DoD Coordinated care fee, risk adjusted maintenance, Level 3 11/30 ANDERES, LENGRADY DoD Case Management, each 15 minutes 11/30 ANDERESANTONIO targeted assessment x 6 units coordination of a service x 4 units follow up single service x 2 DoD Coordinated care fee, risk adjusted maintenance, Level 3 11/21 ANDANTONIO LOPEZ Case Management, each 15 minutes 11/21 ANDANTONIO LOPEZ targeted assessment x 6 units coordination of a service x4 units follow up single service x2 DoD Medication Management By Pharmacist Initial 15 Minutes Established Patient Medication Management By Pharmacist Initial 15 Minutes Established Patient [id number] 11/16 NICOLE YODER [facility] Mental health services, not otherwise specified 11/16 [place] MIGEL [facility] Clinical Social Work Individual Outpatient Counseling 30 Minutes Clinical Social Work Individual Outpatient Counseling 30 Minutes [id number] 11/15 [place] [facility] Coordinated care fee, risk adjusted maintenance, Level 3 11/14 ANDANTONIO LOPEZ [facility] Case Management, each 15 minutes 11/14 ANDANTONIO LOPEZ targeted assessment x 6 units coordination of a service x 4 units follow up single service x 2 units [facility] Physical Therapy Service Re-Evaluation Physical Therapy Service Re-Evaluation [id number] 11/14 REGGIE EPSTEIN [facility] Virtualization Architect Ed Community Reintegration Training - Per 15 Min Virtualization Architect Ed Community Reintegration Training - Per 15 Min 80271 11/14 MARTIR MUELLER [facility] Occupational Therapy Re-Evaluation Occupational Therapy Re-Evaluation 04806 11/14 MARTIR MUELLER [facility] Non-Physician Phone Call To Pt/Provider Intermed (11-20 min) Non-Physician Phone Call To Pt/Provider Intermed (11-20 min) [id number] 11/08 MIRELLA MATHEWS [facility] Coordinated care fee, risk adjusted maintenance, Level 3 11/08 ANDANTONIO LOPEZ Case Management, each 15 minutes 11/08 ANDANTONIO LOPEZ targeted assessment x 6 units follow up single service x 2 coordination of a service x 4 units [facility] Coordinated care fee, risk adjusted maintenance, Level 3 11/02 ANDANTONIO LOPEZ Case Management, each 15 minutes 11/02 ANDANTONIO LOPZE targeted assessment x 6 units follow up single service x 2 units coordination of a service x 4 units [facility] Coordinated care fee, risk adjusted maintenance, Level 3 10/24 ANDANTONIO LOPEZ Case Management, each 15 minutes 10/24 ANDANTONIO LOPEZ targeted assessment x 6 units follow up single service x 2 coordination of a service x 4 units DoD Coordinated care fee, risk adjusted maintenance, Level 3 10/18 ANDERES, ANTONIO DoD Case Management, each 15 minutes 10/18 ANDERES, ANTONIO DoD Coordinated care fee, risk adjusted maintenance, Level 3 10/11 [facility] Case Management, each 15 minutes 10/11 [facility] assessment x 6 units coordination of a service x 4 units follow up single service x 2 units DoD Coordinated care fee, risk adjusted maintenance, Level 3 10/03 ANDERES, ANTONIO DoD Case Management, each 15 minutes 10/03 ANDERESANTONIO targeted assessment x 6 units follow up single service x 2 coordinaiton of a service x 4 units DoD Psychotherapy Individual Approximately 30 Minutes Psychotherapy Individual Approximately 30 Minutes [id number] 09/29 SAUNDRA PEREZ DoD Coordinated care fee, risk adjusted maintenance, Level 3 09/27 ANDERES, ANTONIO DoD Case Management, each 15 minutes 09/27 ANDERESANTONIO targeted assessment x 6 units coordination of a service x 4 units follow up single service x 2 units DoD Coordinated care fee, risk adjusted maintenance 09/25 LARA MASON DoD Case Management, each 15 minutes 09/25 LARA MASON AT - 9, 11 DoD Coordinated care fee, maintenance rate 09/19 LARA MASON DoD Case Management, each 15 minutes 09/19 LARA MASON AT - 11, 13, 19 DoD Coordinated care fee, risk adjusted maintenance, Level 3 09/04 ANDERESANTONIO DoD Case Management, each 15 minutes 09/04 ANDERESANTONIO targeted assessment x 6 units coordination of a service x 4 follow up single service x 2 DoD Case Management, each 15 minutes 08/29 ANDERESANTONIO targeted assessment x 6 units follow up single service x 2 coordination of a service DoD Coordinated care fee, risk adjusted maintenance, Level 3 08/29 ANDERES, ANTONIO DoD Coordinated care fee, risk adjusted maintenance, Level 3 08/28 ANDERES, ANTONIO DoD Case Management, each 15 minutes 08/28 ANDERES, ANTONIO DoD Coordinated care fee, risk adjusted maintenance, Level 3 08/22 ANDERES, ANTONIO DoD Case Management, each 15 minutes 08/22 ANDANTONIO LOPEZ targeted assessment x 6 units follow up single service x 2 units coordination of a service x 4 units DoD Development Of Cognitive Skills By Compensatory Activities Development Of Cognitive Skills By Compensatory Activities 17318 08/09 LAITH BARAKAT 1 Units. 15 Min of Tx and Education [facility] Speech Therapy Speech Therapy 43609 08/09 LAITH BARAKAT [facility] Evaluation Of Swallowing And Oral Function Evaluation Of Swallowing And Oral Function 17767 08/09 LAITH BARAKAT [facility] Eval of Speech Sound Production, Language Comprehension & Expre ion Eval of Speech Sound Production, Language Comprehension & Expression 45342 08/09 LAITH BARAKAT Medication Management By Pharmacist Initial 15 Minutes Established Patient Medication Management By Pharmacist Initial 15 Minutes Established Patient [id number] 08/09 LONI MIGUEL [facility] Medication Management By Pharmacist Each Additional 15 Minutes Medication Management By Pharmacist Each Additional 15 Minutes [id number] 08/09 LONI MIGUEL [facility] Clinical Social Work Individual Outpatient Counseling 30 Minutes Clinical Social Work Individual Outpatient Counseling 30 Minutes [id number] 08/08 MIGEL CASTANEDA [facility] Coordinated care fee, risk adjusted maintenance, Level 3 08/07 ANDANTONIO LOPEZ [facility] Case Management, each 15 minutes 08/07 ANDANTONIO [...] fee, risk adjusted maintenance, Level 3 07/25 ANDERESANTONIO DoD Case Management, each 15 minutes 07/25 ANDERESANTONIO targeted assessment x 6 units coordination of a service x 4 follow up single service x 2 DoD Coordinated care fee, risk adjusted maintenance, Level 3 07/13 ANDERESANTONIO DoD Case Management, each 15 minutes 07/13 ANDERESANTONIO targeted assessment x 6 units follow up single service x 2 emotional suipport x 2 coordination of a service x 4 [facility] Non-Physician Phone Call To Patient/Provider Brief (5-10min) Non-Physician Phone Call To Patient/Provider Brief (5-10min) [id number] 07/07 STEFAN QUINONES DoD Coordinated care fee, risk adjusted maintenance, Level 3 07/06 ANDERESANTONIO DoD Case Management, each 15 minutes 07/06 ANDERES LENGRADY targeted assessment x 6 units Coordination of a service x 4 units Follow up single service x 2 DoD Mental health services, not otherwise specified 06/29 SAUNDRA PEREZ DoD Coordinated care fee, risk adjusted maintenance, Level 3 06/28 ANDERESANTONIO DoD Case Management, each 15 minutes 06/28 ANDERESANTONIO targeted assessment x 6 units follow up single service x 2 coordination of a service x 4 DoD Coordinated care fee, risk adjusted maintenance, Level 3 06/21 ANDERESANTONIO DoD Case Management, each 15 minutes 06/21 ANDERESANTONIO targeted assessent x 6 follow up single service x 2 units modified assessment x 6 DoD Coordinated care fee, risk adjusted maintenance, Level 3 06/15 ANDERESANTONIO DoD Case Management, each 15 minutes 06/15 ANDERESANTONIO targeted assessment x 6 unit follow up single service x 2 multidiscipline conferences x4 DoD Mental health services, not otherwise specified 06/08 SAUNDRA PEREZ [facility] Coordinated care fee, risk adjusted maintenance, Level 3 06/08 ANDERESANTONIO DoD Case Management, each 15 minutes 06/08 ANDERESANTONIO targeted assessment x 6 units follow up single service x 4 multidisciplinary conferences x 4 units DoD Coordinated care fee, risk adjusted maintenance, Level 3 05/29 ANDERESANTONIO DoD Case Management, each 15 minutes 05/29 ANDERES LENGRADY targeted assessment x 6 units follow up single service x 4 coordination of a service x 4 units DoD Coordinated care fee, risk adjusted maintenance, Level 3 05/22 ANDERES, ANTONIO DoD Case Management, each 15 minutes 05/22 ANDERESANTONIO targeted assessment x 6 units coordination of a service x 4 follow up single service x 2 units DoD Coordinated care fee, risk adjusted maintenance, Level 3 05/18 ANDERESANTONIO DoD Case Management, each 15 minutes 05/18 ANDERESANTONIO targeted assessment x 6 units follow up single service x 2 DoD Coordinated care fee, risk adjusted maintenance, Level 3 05/11 ANDANTONIO LOPEZ [facility] Case Management, each 15 minutes 05/11 ANDANTONIO LOPEZ targeted assessment x 6 units coordintation of a service x 4 follow up single service x 2 units DoD Case Management, each 15 minutes 05/03 MELISSA ESPARZA [facility] Coordinated care fee, maintenance rate 05/03 MELISSA ESPARZA [facility] Coordinated care fee, risk adjusted maintenance, Level 3 04/26 ANDANTONIO LOPEZ Case Management, each 15 minutes 04/26 ANDANTONIO LOPEZ targeted assessment x 6 units coordination of a service x 4 units follow up single service x 2 units DoD Coordinated care fee, risk adjusted maintenance, Level 3 04/19 ANDANTONIO LOPEZ Case Management, each 15 minutes 04/19 ANDANTONIO LOPEZ targeted assessment x 6 units follow up single service x 2 coordination of a service x 4 units [facility] Clinical Social Work Individual Outpatient Counseling 30 Minutes Clinical Social Work Individual Outpatient Counseling 30 Minutes [id number] 04/14 STEFAN QUINONES [facility] Coordinated care fee, risk adjusted maintenance, Level 3 04/11 ANDANTONIO LOPEZ [facility] Case Management, each 15 minutes 04/11 ANDANTONIO LOPEZ targeted assessment x 6 units interdisciplinary group meeting x 1 units follow up single service x 2 units multidisciplinary conferences x 4 units [facility] Physical Therapy Service Re-Evaluation Physical Therapy Service Re-Evaluation 67444 04/11 REGGIE EPSTEIN [facility] Spectacles Services Fitting Bifocal Except For Aphakia Spectacles Services Fitting Bifocal Except For Aphakia 56171 04/11 RACHELLE CARUSO [facility] Determination Of Refractive State Determination Of Refractive State 46079 04/11 RACHELLE CARUSO [facility] Ophthalmological New Patient Start Comprehensive Care Ophthalmological New Patient Start Comprehensive Care 55090 04/11 RACHELLE CARUSO [facility] Medication Management By Pharmacist Initial 15 Minutes Established Patient Medication Management By Pharmacist Initial 15 Minutes Established Patient [id number] 04/10 LONI MIGUEL [facility] Coordinated care fee, risk adjusted maintenance, Level 3 04/07 ANDANTONIO LOPEZ [facility] Case Management, each 15 minutes 04/07 ANDANTONIO LOPEZ targeted assessment x 6 units interdisciplinary group x 1 follow up single service x 2 coordination of a service x 4 DoD Coordinated care fee, risk adjusted maintenance, Level 3 03/31 ANDERES, RASHMIGRADY DoD Case Management, each 15 minutes 03/31 ANDANTONIO LOPEZ targeted assessment x 6 units interdisciplinary group meeting x 1 units voice mail left x 2 follow up single service x2 DoD Coordinated care fee, risk adjusted maintenance, Level 3 03/21 ANDERES, RASHMIGRADY DoD Case Management, each 15 minutes 03/21 ANDANTONIO LOPEZ targeted assessment x 6 units coordination of a service x 4 untis care plan additional x 6 DoD Coordinated care fee, risk adjusted maintenance, Level 3 03/16 ANDERES RASHMIGRADY DoD Case Management, each 15 minutes 03/16 ANDANTONIO LOPEZ targeted assessment x 6 units interdisciplinary group x 1 care plan update x 6 unit follow up single service x 2 unit DoD Non-Physician Phone Call To Patient/Provider Brief (5-10min) Non-Physician Phone Call To Patient/Provider Brief (5-10min) [id number] 03/13 STEFAN QUINONES DoD Coordinated care fee, risk adjusted maintenance, Level 3 03/06 ANDERES RASHMIGRADY DoD Case Management, each 15 minutes 03/06 ANDERES RASHMIGRADY DoD Coordinated care fee, risk adjusted maintenance, Level 3 03/03 ANDERESANTONIO DoD Case Management, each 15 minutes 03/03 ANDANTONIO LOPEZ targeted assessment x 6 units modified assessment x 6 units coordination of a service x 4 units follow up single service x 2 DoD Coordinated care fee, risk adjusted maintenance, Level 3 02/24 ANDERESANTONIO DoD Case Management, each 15 minutes 02/24 ANDANTONIO LOPEZ targeted assessment x 6 units modified assessment x 6 units coordination of a service x 4 units follow up single service x 2 units DoD Case Management, each 15 minutes 02/17 CEDRICK WATTS Tar assess 6 CM to CM 2 Indiv emotional support 4 DoD Coordinated care fee, risk adjusted maintenance 02/17 CEDRICK WATTS [facility] Case Management, each 15 minutes 02/09 CEDRICK WATTS Tar assess 6 Indiv emotional support 4 DoD Coordinated care fee, risk adjusted maintenance, Level 4 02/09 CEDRICK WATTS DoD Case Management, each 15 minutes 02/01 CEDRICK WATTS Tar assess 6 Indiv emotional support [facility] Coordinated care fee, risk adjusted maintenance, Level 3 02/01 CEDRICK WATTS DoD Case Management, each 15 minutes 01/18 CEDRICK WATTS Tar assess 6 F/u single service 2 Indiv emotional support 4 DoD Coordinated care fee, risk adjusted maintenance 01/18 CEDRICK WATTS [facility] Physical Medicine - Group Physical Therapy Se ion Physical Medicine - Group Physical Therapy Session [id number] 01/16 MAXIME APRR [facility] Virtualization Architect Ed Community Reintegration Training - Per 15 Min Virtualization Architect [employer] Community Reintegration Training - Per 15 Min 75514 01/13 MARTIR MUELLER [facility] Occupational Therapy Re-Evaluation Occupational Therapy Re-Evaluation 21058 01/13 MARTIR MUELLER [facility] Physical Therapy Service Re-Evaluation Physical Therapy Service Re-Evaluation 82755 01/11 REGGIE EPSTEIN [facility] Medication Management By Pharmacist Initial 15 Minutes Established Patient Medication Management By Pharmacist Initial 15 Minutes Established Patient [id number] 01/10 LONI MIGUEL [facility] Case Management, each 15 minutes 01/09 CEDRICK WATTS assess 6 Indiv emotional support 4 F/u single service 2 DoD Coordinated care fee, risk adjusted maintenance 01/09 CEDRICK WATTS [facility] Psychiatric Diagnostic Evaluation Review of Records and Reports Psychiatric Diagnostic Evaluation Review of Records and Reports 02566 01/09 LAITH MELÉNDEZ [facility] Coordinated care fee, risk adjusted maintenance, Level 3 01/02 ANDANTONIO LOPEZ [facility] Case Management, each 15 minutes 01/02 ANDANTONIO LOPEZ targeted assessment x 6 units follow upsingle service x 2 units coordination of a service x 4 units [facility] Physical Medicine - Group Physical Therapy Se ion Physical Medicine - Group Physical Therapy Session 37587 12/29 SHANTEL TAYLOR [facility] Coordinated care fee, risk adjusted maintenance, Level 3 12/27 ANDERES, LENECE DoD Case Management, each 15 minutes 12/27 ANDERESANTONIO targeted assessment x 6 units follow up single service x 2 units coordination of a service x 2 units [facility] Physical Medicine - Group Physical Therapy Se ion Physical Medicine - Group Physical Therapy Session 75993 12/26 MAXIME PARR [facility] Evoked Otoacoustic Curtis ions Comprehensive Evoked Otoacoustic Emissions Comprehensive 26712 12/23 JENN OSEI [facility] Acoustic Reflex Testing Acoustic Reflex Testing 84982 12/23 JENN OSEI [facility] Tympanometry Tympanometry 81833 12/23 JENN OSEI [facility] Comprehensive Audiometry Comprehensive Audiometry 35463 12/23 JENN OSEI [facility] Coordinated care fee, risk adjusted maintenance, Level 3 12/21 ANDERES, LENECE DoD Case Management, each 15 minutes 12/21 ANDERES, LENECE targeted assessment x 6 units follow up single service x 2 units coordination of a service x 4 units DoD Psychiatric Therapy Environmental Intervention Psychiatric Therapy Environmental Intervention 59608 12/15 SAUNDRA PEREZ [facility] Coordinated care fee, risk adjusted maintenance, Level 3 12/13 ANDERES, LENECE DoD Case Management, each 15 minutes 12/13 ANDERES, LENECE targeted assessment x 6 units follow up single service x 2 units coordination of a service x 4 units DoD Physical Medicine - Group Physical Therapy Se ion Physical Medicine - Group Physical Therapy Session 32803 12/12 MAXIME PARR [facility] Medication Management By Pharmacist Initial 15 Minutes Established Patient Medication Management By Pharmacist Initial 15 Minutes Established Patient 34138 12/12 LONI MIGUEL [facility] Psychotherapy Individual Approximately 60 Minutes 12/08 THANH HEIN [facility] Coordinated care fee, risk adjusted maintenance, Level 3 12/07 ANDERES, LENECE DoD Case Management, each 15 minutes 12/07 ANDERES, LENECE targeted assessment x 6 units coordination for a service x 4 units follow up single service DoD Physical Medicine - Group Physical Therapy Se ion Physical Medicine - Group Physical Therapy Session 17151 12/05 MAXIME PARR [facility] Coordinated care fee, risk adjusted maintenance, Level 3 12/01 ANDERES, LENECE DoD Case Management, each 15 minutes 12/01 ANDERES, LENECE targeted assessment x 6 units coordination of a servic ex 4 units follow up single service x 2 units DoD Coordinated care fee, risk adjusted maintenance, Level 3 11/23 ANDERES, LENECE DoD Case Management, each 15 minutes 11/23 ANDERES, LENECE targeted assessment x 6 units follow up single service x 2 coordintaion of a sevie s 4 units WT targeted assessment x 2 units DoD Coordinated care fee, risk adjusted maintenance, Level 3 11/15 ANDANTONIO LOPEZ DoD Case Management, each 15 minutes 11/15 ANTONIO QUACH targeted assessment x 6 units follow up single servcie x 2 units coordination of a service x 4 units DoD Coordinated care fee, risk adjusted maintenance, Level 3 11/10 ANDJOHN RASHMIGRADY DoD Case Management, each 15 minutes 11/10 ANTONIO QUACH initial assessment comprehensive x 8 [facility] Psychotherapy Individual Approximately 60 Minutes 11/10 THANH HEIN DoD Case Management, each 15 minutes 11/08 MELISSA ESPARZA 2/3////// DoD Coordinated care fee, risk adjusted maintenance, Level 5 11/08 MELISSA ESPARZA [facility] Physical Medicine - Group Physical Therapy Se ion Physical Medicine - Group Physical Therapy Session [id number] 11/07 MAXIME PARR [facility] Case Management, each 15 minutes 11/02 MELISSA ESPARZA 2/3////// / DoD Coordinated care fee, risk adjusted maintenance, Level 5 11/02 MELISSA ESPARZA [facility] Physical Medicine - Group Physical Therapy Se ion Physical Medicine - Group Physical Therapy Session 07367 11/01 MARTIR MUELLER [facility] Physical Therapy Service Evaluation Physical Therapy Service Evaluation 50188 10/31 REGGIE EPSTEIN [facility] Case Management, each 15 minutes 10/27 MELISSA ESPARZA 2,3,7,8,11,13,14,1 6 [facility] Coordinated care fee, risk adjusted maintenance, Level 5 10/27 MELISSA ESPARZA [facility] Threshold Audiogram (Pure Tone) Threshold Audiogram (Pure Tone) 61791 10/25 EVELYN WEAVER [facility] Screening Test Of Visual Acuity, Quantitative, Bilateral Screening Test Of Visual Acuity, Quantitative, Bilateral 73778 10/25 EVELYN WEAVER Venipuncture Venipuncture 49131 10/25 EVELYN WEAVER [facility] Case Management, each 15 minutes 10/24 MELISSA ESPARZA 2/3//////05/28 [facility] Coordinated care fee, risk adjusted maintenance, Level 4 10/24 MELISSA ESPARZA [facility] Virtualization Architect Ed Community Reintegration Training - Per 15 Min Virtualization Architect [employer] Community Reintegration Training - Per 15 Min 85665 10/24 MARTIR MUELLER [facility] Occupational Therapy Evaluation Occupational Therapy Evaluation 23852 10/24 MARTIR MUELLER [facility] Medication Management By Pharmacist Initial 15 Minutes New Patient Medication Management By Pharmacist Initial 15 Minutes New Patient [id number] 10/19 LONI MIGUEL [facility] Case Management, each 15 minutes 10/19 MELISSA ESPARZA 1,5,6,7,8,9,13,14, 16 [facility] Coordinated care fee, risk adjusted maintenance, Level 4 10/19 MELISSA ESPARZA [facility] Psychiatric Diagnostic Evaluation Initial Psychiatric Diagnostic Evaluation Initial 19089 10/13 MIRELLA MATHEWS [facility] Coordinated care fee, maintenance rate 10/12 MELISSA ESPARZA [facility] Case Management, each 15 minutes 10/12 MELISSA ESPARZA Case Management, each 15 minutes 10/11 MERLE GALLARDO AT # 3,9,11,13,[address] Coordinated care fee, risk adjusted maintenance, Level 5 10/11 MERLE GALLARDO Case Management, each 15 minutes 10/03 MERLE GALLARDO AT # 3,7,9,11,13,[address] Coordinated care fee, risk adjusted maintenance, Level 3 10/03 MERLE GALLARDO Case Management, each 15 minutes 09/27 MERLE GALLARDO AT # 3,8,9,11,13,16. [address] Coordinated care fee, risk adjusted maintenance, Level 5 09/27 MERLE GALLARDO [facility] Physical Therapy: ___ Se ion Segments, 15 Minutes Each Physical Therapy: ___ Session Segments, 15 Minutes Each [id number] 09/26 JUN WHITLEY Physical Therapy Service Re-Evaluation Physical Therapy Service Re-Evaluation 06669 09/26 JUN WHITLEY [facility] Clinical Social Work Individual Outpatient Counseling 45 Minutes 09/23 CELESTINO PAUL [facility] Case Management, each 15 minutes 09/19 MERLE GALLARDO AT # 3, 5.9.11.13. [address] Coordinated care fee, risk adjusted maintenance, Level 4 09/19 MERLE GALLARDO [facility] Clinical Social Work Individual Outpatient Counseling 45 Minutes 09/16 CELESTINO PAUL [facility] Physical Therapy: ___ Se ion Segments, 15 Minutes Each Physical Therapy: ___ Session Segments, 15 Minutes Each 18818 09/14 JUN WHITLEY [facility] Physical Therapy Service Evaluation Physical Therapy Service Evaluation 13826 09/14 JUN WHITLEY Case Management, each 15 minutes 09/12 MERLE GALLARDO AT # 3,9,11,13,16. [address] Coordinated care fee, risk adjusted maintenance, Level 3 09/12 MERLE GALLARDO Case Management, each 15 minutes 09/05 MERLE GALLARDO AT = 3,9,11,13,16. [address] Coordinated care fee, risk adjusted maintenance, Level 4 09/05 MERLE GALLARDO Laryngoscopy Diagnostic Laryngoscopy Diagnostic 18126 09/05 LAINEY JAY [facility] Case Management, each 15 minutes 08/30 MERLE GALLARDO AT = 3, 5, 6, 10, 11, 13, 16; Face to Face [facility] Coordinated care fee, risk adjusted maintenance, Level 3 08/30 MERLE GALLARDO Case Management, each 15 minutes 08/26 MARION GALDAMEZ and FACE to FACE T=18 G=3 AT=2, 10, 11, 16, 18 [facility] Coordinated care fee, risk adjusted maintenance, Level 3 08/26 MARION GALDAMEZ Clinical Social Work Individual Outpatient Counseling 45 Minutes 08/24 CELESTINO PAUL [facility] Clinical Social Work Individual Outpatient Counseling 45 Minutes 08/19 CELESTINO PAUL [facility] Case Management, each 15 minutes 08/19 MARION GALDAMEZ T=19 G=2 AT=2. 6, 9, 11, 16, 18 [facility] Coordinated care fee, risk adjusted maintenance 08/19 MARION GALDAMEZ Clinical Social Work Individual Outpatient Counseling 45 Minutes 08/11 CELESTINO PAUL Case Management, each 15 minutes 08/08 MERLE GALLARDO AT # 3, 9, 11, 13; [address] Coordinated care fee, risk adjusted maintenance, Level 5 08/08 MERLE GALLARDO Laryngoscopy Diagnostic Flexible Laryngoscopy Diagnostic Flexible 97673 08/01 GARTH WEBSTER [facility] Case Management, each 15 minutes 08/01 MERLE GALLARDO Acuity Tracker # 3,9,11,13,16; [address] Coordinated care fee, risk adjusted maintenance, Level 4 08/01 MERLE GALLARDO Case Management, each 15 minutes 07/26 MERLE GALLARDO AT= 5,7,9,13; [address] Coordinated care fee, risk adjusted maintenance, Level 3 07/26 MERLE GALLARDO Case Management, each 15 minutes 07/25 MERLE GALLARDO AT = 9, 13, [address] Coordinated care fee, maintenance rate 07/25 MERLE GALLARDO Case Management, each 15 minutes 07/18 MERLE GALLARDO AT = 11 [facility] Coordinated care fee, risk adjusted maintenance 07/18 MERLE GALLARDO Clinical Social Work Individual Outpatient Counseling 45 Minutes 07/18 CELESTINO PAUL [facility] Case Management, each 15 minutes 07/13 MERLE GALLARDO AT = 3,7,9,11,13,[address] Coordinated care fee, risk adjusted maintenance, Level 4 07/13 MERLE GALLARDO Case Management, each 15 minutes 07/08 DARY MANJARREZ AT 2, 13, [address] Coordinated care fee, risk adjusted maintenance 07/08 DARY MANJARREZ [facility] Clinical Social Work Individual Outpatient Counseling 45 Minutes 06/29 CELESTINO PAUL Case Management, each 15 minutes 06/27 MERLE GALLARDO AT = 3,7,9,11,13,[address] Coordinated care fee, risk adjusted maintenance, Level 3 06/27 MERLE GALLARDO Clinical Social Work Individual Outpatient Counseling 45 Minutes 06/22 INFANTCELESTINO Mckinney Case Management, each 15 minutes 06/20 MERLE GALLARDO AT= 3,5,7,9,11,13,[address] Coordinated care fee, risk adjusted maintenance, Level 4 06/20 MERLE GALLARDO Clinical Social Work Individual Outpatient Counseling 45 Minutes 06/15 CELESTINO PAUL [facility] Case Management, each 15 minutes 06/14 MERLE GALLARDO AT = 3,7, 9, 11, 13, 16 F2F [facility] Coordinated care fee, risk adjusted maintenance, Level 3 06/14 MERLE GALLARDO [facility] Medical Nutrition Therapy Re-a e ment And Intervention Each 15 Minutes Medical Nutrition Therapy Re-assessment And Intervention Each 15 Minutes [id number] 06/10 KAVIN HUDSON [facility] Clinical Social Work Individual Outpatient Counseling 45 Minutes 06/08 CELESTINO PAUL [facility] Coordinated care fee, risk adjusted maintenance, Level 5 06/06 AJ VARELA Case Management, each 15 minutes 06/06 AJ VARELA Per Acuity Calculator: 3, 6, 9, 13 [facility] Medical Nutrition Therapy Re-a e ment And Intervention Each 15 Minutes Medical Nutrition Therapy Re-assessment And Intervention Each 15 Minutes [id number] 06/03 KAVIN HUDSON Coordinated care fee, risk adjusted maintenance, Level 3 06/01 AJ VARELA Case Management, each 15 minutes 06/01 AJ VARELA Per Acuity Calculator: 3, 13 [facility] Medical Nutrition Therapy Re-a e ment And Intervention Each 15 Minutes Medical Nutrition Therapy Re-assessment And Intervention Each 15 Minutes [id number] 05/27 KAVIN HUDSON [facility] Clinical Social Work Individual Outpatient Counseling 45 Minutes 05/24 CELESTINO PAUL [facility] Laryngoscopy Diagnostic Flexible Laryngoscopy Diagnostic Flexible 32177 05/23 ELKE MERRITT [facility] Coordinated care fee, risk adjusted maintenance, Level 3 05/23 AJ VARELA Case Management, each 15 minutes 05/23 AJ VARELA Per Acuity Calculator: 3, 5,, 13 [facility] Clinical Social Work Individual Outpatient Counseling 45 Minutes 05/20 CELESTINO PAUL [facility] Medical Nutrition Therapy Re-a e ment And Intervention Each 15 Minutes Medical Nutrition Therapy Re-assessment And Intervention Each 15 Minutes [id number] 05/18 KAVIN HUDSON [facility] Clinical Social Work Individual Outpatient Counseling 45 Minutes 05/16 CELESTINO PAUL Coordinated care fee, maintenance rate 05/16 AJ VARELA Do[facility] Case Management, each 15 minutes 05/16 NICHOLE, AJ LUIS Per Acuity Calculator: 3, 13 DoD Coordinated care fee, risk adjusted maintenance, Level 3 05/10 NICHOLE, AJ LUIS [facility] Case Management, each 15 minutes 05/10 NICHOLE, QUINCY Per Acuity Calculator: 8 DoD Case Management, each 15 minutes 05/10 NICHOLE, QUINCY Per Acuity Calculator: 3, 13 [facility] Coordinated care fee, risk adjusted maintenance 05/04 NICHOLE, QUINCY DoD Case Management, each 15 minutes 05/04 NICHOLE, QUINCY Per Acuity Calculatoor: 13, 19 [facility] Ultrasound Thyroid Ultrasound Thyroid 53496 04/27 AKMERON_MAURICE SCRUGGS [facility] Clinical Social Work Individual Outpatient Counseling 45 Minutes 04/26 CELESTINO PAUL [facility] Medical Nutrition Therapy Re-a e ment And Intervention Each 15 Minutes Medical Nutrition Therapy Re-assessment And Intervention Each 15 Minutes [id number] 04/26 OGKAVIN SAAVEDRA N [facility] Coordinated care fee, risk adjusted maintenance 04/26 NICHOLE, AJ LUIS [facility] Case Management, each 15 minutes 04/26 NICHOLE, AJ LUIS Per Acuity Calculator: 3, 5, 9(2). 13 [facility] Clinical Social Work Individual Outpatient Counseling 45 Minutes 04/20 PRIYANKA DAVILA [facility] Coordinated care fee, maintenance rate 04/18 NICHOLEAJ CORREIA [facility] Case Management, each 15 minutes 04/18 AJ VARELA Per Acuity Calculator: 3, 13, 16 [facility] Medical Nutrition Therapy Re-a e ment And Intervention Each 15 Minutes Medical Nutrition Therapy Re-assessment And Intervention Each 15 Minutes 40588 04/13 OGVELASQUEZA, KAVIN N [facility] Coordinated care fee, risk adjusted maintenance, Level 5 NICHOLEAJ CORREIA DoD Case Management, each 15 minutes AJ VARELA Per Acuity Calculator: 3, 5, 13 [facility] Coordinated care fee, risk adjusted maintenance, Level 4 04/06 NICHOLEAJ CORREIA [facility] Patient Counseling Medical Management Individual Patient Patient Counseling Medical Management Individual Patient [id number] 04/06 YOU GARCIAS Provided counseling session following the [place] [employer] Aural Rehabilitation curriculum for patients with auditory complaints. Details can be found at: http://www.saturnino.or g/docs/html/OE6702 -[email or web address].html#sec1.4 .23 The following topics were discussed: Current test results. Pts. questions were answered and guidance provided for future follow up appointments. Duration: 16 minutes DoD Evoked Otoacoustic Curtis ions Comprehensive Evoked Otoacoustic Emissions Comprehensive 96965 04/06 YOU GARCIAS Audiometry Speech Threshold Audiometry Speech Threshold 42730 04/06 YOU GARCIAS Threshold Audiogram (Pure Tone) Threshold Audiogram (Pure Tone) 18448 04/06 YOU GARCIAS Tympanometry Tympanometry 22469 04/06 YOU GARCIAS Case Management, each 15 minutes 04/06 AJ VARELA Per Acuity Calculator: 3, 5, 13 [facility] Coordinated care fee, risk adjusted maintenance, Level 3 03/30 AJ VARELA Case Management, each 15 minutes 03/30 AJ VARELA Per Acuity Calculator: 3, 5, 9, 13 [facility] Case Management, each 15 minutes 03/24 DARY MANJARREZ AT 2, 9x3, 14, 17 F2F [facility] Coordinated care fee, risk adjusted maintenance 03/24 DARY MANJARREZ Coordinated care fee, maintenance rate 03/15 AJ VARELA Case Management, each 15 minutes 03/15 AJ VARELA Per Acuity Calculator: 9, 13, 19 yKm Coordinated care fee, risk adjusted maintenance, Level 4 03/10 AJ VARELA Case Management, each 15 minutes 03/10 AJ VARELA Per Acuity Calculator: 13, 18 [facility] Coordinated care fee, risk adjusted maintenance, Level 4 03/09 AJ VARELA Case Management, each 15 minutes 03/09 AJ VARELA Coordinated care fee, risk adjusted maintenance, Level 4 03/04 AJ VARELA Case Management, each 15 minutes 03/04 AJ VARELA Per Acuity Calculator: 13, 18 [facility] Coordinated care fee, risk adjusted maintenance, Level 3 02/22 AJ VARELA Case Management, each 15 minutes 02/22 AJ VARELA Per Acuity Calculator: 9, 14, 18 [facility] Coordinated care fee, risk adjusted maintenance 02/15 AJ VARELA Case Management, each 15 minutes 02/15 AJ VARELA Per Acuity Calculator: 3, 5, 10, 14 [facility] Intensity Modulated Radiation Treatment Delivery Complex Intensity Modulated Radiation Treatment Delivery Complex 01232 02/10 ARELY [place] Radiation With Complete Course of Therapy Radiation With Complete Course of Therapy 59889 02/10 ARELY [place] [facility] Radiation Stereosc X-Ray Guid For Localiz Target Volume Radiation Stereosc X-Ray Guid For Localiz Target Volume 85253 02/10 ARELY [place] [facility] IV Infusion For Hydration 31 Minutes To 1 Hour IV Infusion For Hydration 31 Minutes To 1 Hour 36467 02/09 CASSANDRA KIDD [facility] Patient Counseling Medical Management Individual Patient Patient Counseling Medical Management Individual Patient [id number] 02/09 YOU GARCIAS Provided counseling session following the [place] [employer] Aural Rehabilitation curriculum for patients with auditory complaints. Details can be found at: http://www.saturnino.or g/docs/html/CQ7696 -95153.html#sec1.4 .23 The following topics were discussed: Current test results and hearing protection. Pts. questions were answered and guidance provided for future follow up appointments. Duration: 16 minutes [facility] Audiometry Speech Threshold With Discrimination Audiometry Speech Threshold With Discrimination 95733 02/09 YOU GARCIAS [facility] Threshold Audiogram (Pure Tone) Threshold Audiogram (Pure Tone) 74696 02/09 YOU GARCIAS [facility] Evoked Otoacoustic Curtis ions Comprehensive Evoked Otoacoustic Emissions Comprehensive 95858 02/09 YOU GARCIAS [facility] Tympanometry With Reflex Threshold Measurements Tympanometry With Reflex Threshold Measurements 91807 02/09 YOU GARCIAS [facility] Radiation Delivery High Resolution Convergent Beam 3 Or More Radiation Delivery High Resolution Convergent Beam 3 Or More 12148 02/09 PEDRO LUIS HOANG [facility] Radiation Stereosc X-Ray Guid For Localiz Target Volume Radiation Stereosc X-Ray Guid For Localiz Target Volume 53752 02/09 VIKTOR PEDRO LUIS Chuck [facility] IV Infusion For Hydration 31 Minutes To 1 Hour IV Infusion For Hydration 31 Minutes To 1 Hour 36023 02/08 CASSANDRA KIDD [facility] Coordinated care fee, risk adjusted maintenance, Level 5 02/08 AJ VARELA [facility] Case Management, each 15 minutes 02/08 AJ VARELA Per Acuity Calculator: 3, 14, 16 [facility] Intensity Modulated Radiation Treatment Delivery Complex Intensity Modulated Radiation Treatment Delivery Complex 73804 02/08 ARELY [place] [facility] Radiation Weekly Therapy Management Intermediate Radiation Weekly Therapy Management Intermediate 03775 02/08 ARELY [place] [facility] Radiation Stereosc X-Ray Guid For Localiz Target Volume Radiation Stereosc X-Ray Guid For Localiz Target Volume 58338 02/08 ARELY [place] [facility] Radiation Therapy Calculation Basic Dosimetry Radiation Therapy Calculation Basic Dosimetry 86336 02/04 TONY WADE [facility] Radiation Teletherapy Isodose Plan Complex Radiation Teletherapy Isodose Plan Complex 95837 02/04 TONY WADE [facility] 3-D Rendering Requiring Image Postproce ing 3-D Rendering Requiring Image Postprocessing 45137 02/04 TONY WADE [facility] Radiation Delivery High Resolution Convergent Beam 3 Or More Radiation Delivery High Resolution Convergent Beam 3 Or More 65681 02/04 TONY WADE [facility] Radiation Stereosc X-Ray Guid For Localiz Target Volume Radiation Stereosc X-Ray Guid For Localiz Target Volume 69386 02/04 TONY WADE [facility] Radiation Physics Continuing Medical Consult, Quality A Radiation Physics Continuing Medical Consult, Quality Assur 60779 02/03 LASHONDA GARZA [facility] Intensity Modulated Radiation Treatment Delivery Complex Intensity Modulated Radiation Treatment Delivery Complex 28536 02/03 LASHONDA GARZA [facility] Radiation Stereosc X-Ray Guid For Localiz Target Volume Radiation Stereosc X-Ray Guid For Localiz Target Volume 88143 02/03 LASHONDA GARZA [facility] Coordinated care fee, risk adjusted maintenance, Level 5 02/02 AJ VARELA [facility] Case Management, each 15 minutes 02/02 AJ VARELA Per Acuity Calculator: 5, 9, 14, 19 [facility] Case Management, each 15 minutes 02/02 AJ VARELA Per Acuity Calculator: 0 [facility] Radiation Delivery High Resolution Convergent Beam 3 Or More Radiation Delivery High Resolution Convergent Beam 3 Or More 63492 02/02 PEDRO LUIS HOANG [facility] Radiation Stereosc X-Ray Guid For Localiz Target Volume Radiation Stereosc X-Ray Guid For Localiz Target Volume 28476 02/02 PEDRO LUIS HOANG [facility] Clinical Social Work Individual Outpatient Counseling 45 Minutes 02/01 CELESTINO PAUL [facility] Intensity Modulated Radiation Treatment Delivery Complex Intensity Modulated Radiation Treatment Delivery Complex 28702 02/01 BRIAN FLEMING [facility] Radiation Weekly Therapy Management Intermediate Radiation Weekly Therapy Management Intermediate 67690 02/01 BRIAN FLEMING [facility] Radiation Stereosc X-Ray Guid For Localiz Target Volume Radiation Stereosc X-Ray Guid For Localiz Target Volume 74338 02/01 BRIAN FLEMING [facility] Gastric Intubation And Lavage Gastric Intubation And Lavage 01916 01/30 THAIS DODD [facility] IV Infusion For Hydration 31 Minutes To 1 Hour IV Infusion For Hydration 31 Minutes To 1 Hour 05558 01/29 BRIGITTE RAMIREZ [facility] Radiation Delivery High Resolution Convergent Beam 3 Or More Radiation Delivery High Resolution Convergent Beam 3 Or More 35113 01/29 PEDRO LUIS HOANG [facility] Radiation Stereosc X-Ray Guid For Localiz Target Volume Radiation Stereosc X-Ray Guid For Localiz Target Volume 26928 01/29 PEDRO LUIS HOANG [facility] IV Infusion For Hydration 31 Minutes To 1 Hour IV Infusion For Hydration 31 Minutes To 1 Hour 49440 01/28 BRIGITTE RAMIREZ 1 liter N.s. [facility] Intensity Modulated Radiation Treatment Delivery Complex Intensity Modulated Radiation Treatment Delivery Complex 19959 01/28 BRIAN FLEMING [facility] Radiation Stereosc X-Ray Guid For Localiz Target Volume Radiation Stereosc X-Ray Guid For Localiz Target Volume 35269 01/28 BRIAN FLEMING [facility] IV Infusion For Hydration 31 Minutes To 1 Hour IV Infusion For Hydration 31 Minutes To 1 Hour 99569 01/27 BRIGITTE RAMIREZ 1 liter N.S [facility] Radiation Physics Continuing Medical Consult, Quality A ur Radiation Physics Continuing Medical Consult, Quality Assur 21486 01/27 ARELY WASHINGTON [facility] Radiation Delivery High Resolution Convergent Beam 3 Or More Radiation Delivery High Resolution Convergent Beam 3 Or More 02857 01/27 AREYL [place] [facility] Radiation Stereosc X-Ray Guid For Localiz Target Volume Radiation Stereosc X-Ray Guid For Localiz Target Volume 91854 01/27 ARELY [place] [facility] IV Infusion For Hydration 31 Minutes To 1 Hour IV Infusion For Hydration 31 Minutes To 1 Hour 37494 01/26 BRIGITTE RAMIREZ [facility] Collection Of Blood Specimen Via Central/Peripheral Venous Catheter Collection Of Blood Specimen Via Central/Periphera l Venous Catheter 27600 01/26 BRIGITTE RAMIREZ labs and drsg change [facility] Intensity Modulated Radiation Treatment Delivery Complex Intensity Modulated Radiation Treatment Delivery Complex 97394 01/26 BRIAN FLEMING Radiation Therapy Simulation-Aided Field Setting Simple Radiation Therapy Simulation-Aided Field Setting Simple 98035 01/26 BRIAN FLEMING Radiation Stereosc X-Ray Guid For Localiz Target Volume Radiation Stereosc X-Ray Guid For Localiz Target Volume 88133 01/26 BRIAN FLEMING IV Infusion For Hydration 31 Minutes To 1 Hour IV Infusion For Hydration 31 Minutes To 1 Hour 04629 01/25 BRIGITTE RAMIREZ [facility] Coordinated care fee, risk adjusted maintenance, Level 5 01/25 AJ VARELA [facility] Case Management, each 15 minutes 01/25 AJ VARELA Per Acuity Calculator: 3, 5, 9 (2),, 11, 14 [facility] Radiation Delivery High Resolution Convergent Beam 3 Or More Radiation Delivery High Resolution Convergent Beam 3 Or More 85703 01/25 PEDRO LUIS HOANG Radiation Weekly Therapy Management Intermediate Radiation Weekly Therapy Management Intermediate 13761 01/25 PEDRO LUIS HOANG Radiation Stereosc X-Ray Guid For Localiz Target Volume Radiation Stereosc X-Ray Guid For Localiz Target Volume 11247 01/25 PEDRO LUIS HOANG IV Infusion For Hydration 31 Minutes To 1 Hour IV Infusion For Hydration 31 Minutes To 1 Hour 72871 01/22 BRIGITTE RAMIREZ 1 liter N.S. [facility] Intensity Modulated Radiation Treatment Delivery Complex Intensity Modulated Radiation Treatment Delivery Complex 80329 01/22 BRIAN FLEMING Radiation Stereosc X-Ray Guid For Localiz Target Volume Radiation Stereosc X-Ray Guid For Localiz Target Volume 91408 01/22 BRIAN FLEMING [facility] Medical Nutrition Therapy Initial A e ment And Intervention Each 15 Minutes Medical Nutrition Therapy Initial Assessment And Intervention Each 15 Minutes 37859 01/21 JONGKAVIN SAAVEDRA Kendy [facility] Radiation Physics Continuing Medical Consult, Quality A ur Radiation Physics Continuing Medical Consult, Quality Assur 00237 01/21 LASHONDA GARZA [facility] Collection Of Blood Specimen Via Central/Peripheral Venous Catheter Collection Of Blood Specimen Via Central/Periphera l Venous Catheter 10567 01/21 BRIGITTE RAMIREZ labs from picc [facility] IV Infusion For Hydration 31 Minutes To 1 Hour IV Infusion For Hydration 31 Minutes To 1 Hour 95094 01/21 BRIGITTE RAMIREZ 1 liter N.S. [facility] Radiation Treatment Devices, Design and Construction Complex Radiation Treatment Devices, Design and Construction Complex 31034 01/21 LASHONDA GARZA [facility] Radiation Therapy Simulation-Aided Field Setting Complex Radiation Therapy Simulation-Aided Field Setting Complex 70482 01/21 LASHONDA GARZA [facility] Radiation Therapy Treatment Planning Complex Radiation Therapy Treatment Planning Complex 59185 01/21 LASHONDA GARZA [facility] CT Guidance For Placement Of Radiation Therapy Joshi CT Guidance For Placement Of Radiation Therapy Joshi 40680 01/21 LASHONDA GARZA [facility] Radiation Delivery High Resolution Convergent Beam 3 Or More Radiation Delivery High Resolution Convergent Beam 3 Or More 46622 01/21 LASHONDA GARZA [facility] Radiation Stereosc X-Ray Guid For Localiz Target Volume Radiation Stereosc X-Ray Guid For Localiz Target Volume 77297 01/21 LASHONDA GARZA [facility] Coordinated care fee, risk adjusted maintenance, Level 4 01/20 AJ VARELA [facility] Case Management, each 15 minutes 01/20 AJ VARELA Per Acuity Calculator: 3, 5, 9, 14 [facility] IV Infusion For Hydration 31 Minutes To 1 Hour IV Infusion For Hydration 31 Minutes To 1 Hour 30858 01/20 BRIGITTE RAMIREZ [facility] Intensity Modulated Radiation Treatment Delivery Complex Intensity Modulated Radiation Treatment Delivery Complex 60536 01/20 BRIAN FLEMING [facility] Radiation Stereosc X-Ray Guid For Localiz Target Volume Radiation Stereosc X-Ray Guid For Localiz Target Volume 07193 01/20 BRIAN FLEMING Patient Counseling Medical Management Individual Patient Patient Counseling Medical Management Individual Patient [id number] 01/19 HAYDEE VARELA Provided counseling session following the [place] [employer] Aural Rehabilitation curriculum for patients with auditory complaints. Details can be found at: <http://www.saturnino.o rg/docs/html/[email or web address].html#sec1. 4.23 The following topics were discussed: current test results and preventive hearing loss measures. Pt. advised on monitoring audiometry, questions were answered and guidance provided for future follow/up appointments. [facility] Tympanometry With Reflex Threshold Measurements Tympanometry With Reflex Threshold Measurements 31546 01/19 HAYDEE VARELA Evoked Otoacoustic Curtis ions Comprehensive Evoked Otoacoustic Emissions Comprehensive 73896 01/19 HAYDEE VARELA Comprehensive Audiometry Comprehensive Audiometry 07076 01/19 HAYDEE VARELA Radiation Delivery High Resolution Convergent Beam 3 Or More Radiation Delivery High Resolution Convergent Beam 3 Or More 15835 01/19 PEDRO LUIS HOANG Radiation Stereosc X-Ray Guid For Localiz Target Volume Radiation Stereosc X-Ray Guid For Localiz Target Volume 52644 01/19 PEDRO LUIS HOANG IV Infusion For Hydration Each Additional Hour IV Infusion For Hydration Each Additional Hour 02993 01/18 CASSANDRA KIDD IV Infusion For Hydration 31 Minutes To 1 Hour IV Infusion For Hydration 31 Minutes To 1 Hour 91628 01/18 CASSANDRA KIDD Radiation Delivery High Resolution Convergent Beam 3 Or More Radiation Delivery High Resolution Convergent Beam 3 Or More 66556 01/18 BRIAN FLEMING Radiation Weekly Therapy Management Intermediate Radiation Weekly Therapy Management Intermediate 44916 01/18 BRIAN FLEMING Radiation Stereosc X-Ray Guid For Localiz Target Volume Radiation Stereosc X-Ray Guid For Localiz Target Volume 22381 01/18 BRIAN FLEMING Coordinated care fee, risk adjusted maintenance 01/15 AJ VARELA Case Management, each 15 minutes 01/15 AJ VARELA Radiation Delivery High Resolution Convergent Beam 3 Or More Radiation Delivery High Resolution Convergent Beam 3 Or More 72035 01/15 PEDRO LUIS HOANG Radiation Stereosc X-Ray Guid For Localiz Target Volume Radiation Stereosc X-Ray Guid For Localiz Target Volume 31322 01/15 PEDRO LUIS HOANG IV Infusion For Hydration Each Additional Hour IV Infusion For Hydration Each Additional Hour 96631 01/14 CASSANDRA KIDD IV Infusion For Hydration 31 Minutes To 1 Hour IV Infusion For Hydration 31 Minutes To 1 Hour 18863 01/14 CASSANDRA KIDD Radiation Delivery High Resolution Convergent Beam 3 Or More Radiation Delivery High Resolution Convergent Beam 3 Or More 07728 01/14 BRIAN FLEMING Radiation Stereosc X-Ray Guid For Localiz Target Volume Radiation Stereosc X-Ray Guid For Localiz Target Volume 12900 01/14 BRIAN FLEMING Radiation Physics Continuing Medical Consult, Quality A ur Radiation Physics Continuing Medical Consult, Quality Assur 11824 01/13 ARELY [place] Radiation Delivery High Resolution Convergent Beam 3 Or More Radiation Delivery High Resolution Convergent Beam 3 Or More 74321 01/13 ARELY [place] Radiation Stereosc X-Ray Guid For Localiz Target Volume Radiation Stereosc X-Ray Guid For Localiz Target Volume 99279 01/13 ARELY [place] IV Infusion For Hydration Each Additional Hour IV Infusion For Hydration Each Additional Hour 72890 01/12 CASSANDRA KIDD IV Infusion For Hydration 31 Minutes To 1 Hour IV Infusion For Hydration 31 Minutes To 1 Hour 21652 01/12 CASSANDRA KIDD Health And Behav A e mt Each 15 Min Initial A e ment Health And Behav Assessmt Each 15 Min Initial Assessment 13409 01/12 RA L[place]TON Intensity Modulated Radiation Treatment Delivery Complex Intensity Modulated Radiation Treatment Delivery Complex 69795 01/12 BRIAN FLEMING Radiation Stereosc X-Ray Guid For Localiz Target Volume Radiation Stereosc X-Ray Guid For Localiz Target Volume 11930 01/12 BRIAN FLEMING Parenteral Fluids IV Infusion Each Additional Hour Parenteral Fluids IV Infusion Each Additional Hour 12184 01/11 PHIL JACKSON IV Infusion Concurr Hydration Additional Sequential Infusion IV Infusion Concurr Hydration Additional Sequential Infusion 73253 01/11 [facility] Supervised Injection IV Each Additional Sequential Push New Substance Physician Supervised Injection IV Each Additional Sequential Push New Substance 35180 01/11 AFUAPHIL VANCE Parenteral Fluids IV Infusion Additional Sequential Infusion Parenteral Fluids IV Infusion Additional Sequential Infusion 54081 01/11 [facility] Chemotherapy IV - Infusion Up To 1 Hour Chemotherapy IV - Infusion Up To 1 Hour 84943 01/11 [facility] Radiation Delivery High Resolution Convergent Beam 3 Or More Radiation Delivery High Resolution Convergent Beam 3 Or More 22974 01/11 PEDRO LUIS HOANG [facility] Radiation Stereosc X-Ray Guid For Localiz Target Volume Radiation Stereosc X-Ray Guid For Localiz Target Volume [id number] 01/11 VIKTORPEDRO LUIS [facility] Radiation Delivery High Resolution Convergent Beam 3 Or More Radiation Delivery High Resolution Convergent Beam 3 Or More 24733 01/08 PEDRO LUIS HOANG Radiation Stereosc X-Ray Guid For Localiz Target Volume Radiation Stereosc X-Ray Guid For Localiz Target Volume 88144 01/08 VIKTORPEDRO LUIS [facility] Radiation Physics Continuing Medical Consult, Quality A ur Radiation Physics Continuing Medical Consult, Quality Assur 87253 01/06 LASHONDA GARZA [facility] Intensity Modulated Radiation Treatment Delivery Complex Intensity Modulated Radiation Treatment Delivery Complex 44574 01/06 LASHONDA GARZA [facility] Radiation Stereosc X-Ray Guid For Localiz Target Volume Radiation Stereosc X-Ray Guid For Localiz Target Volume 43411 01/06 LASHONDA GARZA [facility] Patient Counseling Medical Management Individual Patient Patient Counseling Medical Management Individual Patient 25396 01/05 DESIREE PATTON [facility] Evoked Otoacoustic Curtis ions Comprehensive Evoked Otoacoustic Emissions Comprehensive 15050 01/05 DESIREE PATTON [facility] Tympanometry With Reflex Threshold Measurements Tympanometry With Reflex Threshold Measurements 19012 01/05 DESIREE PATTON [facility] Comprehensive Audiometry Comprehensive Audiometry 99580 01/05 DESIREE PATTON IV Infusion For Hydration 31 Minutes To 1 Hour IV Infusion For Hydration 31 Minutes To 1 Hour 97122 01/05 BRIGITTE RAMIREZ [facility] Medical Nutrition Therapy Initial A e ment And Intervention Each 15 Minutes Medical Nutrition Therapy Initial Assessment And Intervention Each 15 Minutes 45201 01/05 KIMI MITCHELL [facility] Radiation Delivery High Resolution Convergent Beam 3 Or More Radiation Delivery High Resolution Convergent Beam 3 Or More 50904 01/05 PEDRO LUIS HOANG [facility] Radiation Stereosc X-Ray Guid For Localiz Target Volume Radiation Stereosc X-Ray Guid For Localiz Target Volume 80093 01/05 PEDRO LUIS HOANG [facility] Coordinated care fee, risk adjusted maintenance, Level 4 01/04 AJ VARELA Case Management, each 15 minutes 01/04 AJ VARELA Per Acuity Calculator: 3, 14 [facility] Case Management, each 15 minutes 01/04 AJ VARELA Intensity Modulated Radiation Treatment Delivery Complex Intensity Modulated Radiation Treatment Delivery Complex 11199 01/04 SRIDEVI BETHEA [facility] Radiation Stereosc X-Ray Guid For Localiz Target Volume Radiation Stereosc X-Ray Guid For Localiz Target Volume 25698 01/04 SRIDEVI BETHEA [facility] Radiation Weekly Therapy Management Intermediate Radiation Weekly Therapy Management Intermediate 20147 01/04 SRIDEVI BETHEA Case Management, each 15 minutes 01/01 AJ VARELA Per Acuity Tracker: 1, 5, 9(2), 14 [facility] Intensity Modulated Radiation Treatment Delivery Complex Intensity Modulated Radiation Treatment Delivery Complex 89152 01/01 SRIDEVI BETHEA [facility] Radiation Stereosc X-Ray Guid For Localiz Target Volume Radiation Stereosc X-Ray Guid For Localiz Target Volume 18660 01/01 SRIDEVI BETHEA [facility] Screening Test Of Visual Acuity, Quantitative, Bilateral Screening Test Of Visual Acuity, Quantitative, Bilateral 59724 12/31 SAMANTHA OLVERA [facility] Intensity Modulated Radiation Treatment Delivery Complex Intensity Modulated Radiation Treatment Delivery Complex 85960 12/31 SRIDEVI BETHEA [facility] Radiation Stereosc X-Ray Guid For Localiz Target Volume Radiation Stereosc X-Ray Guid For Localiz Target Volume 23528 12/31 SRIDEVI BETHEA [facility] Intensity Modulated Radiation Treatment Delivery Complex Intensity Modulated Radiation Treatment Delivery Complex 99670 12/30 SRIDEVI BETHEA [facility] Radiation Stereosc X-Ray Guid For Localiz Target Volume Radiation Stereosc X-Ray Guid For Localiz Target Volume 39026 12/30 SRIDEVI BETHEA [facility] Case Management, each 15 minutes 12/29 RENÉE PIÑA ystt-ur-[id number]: 2,7,8,13 [facility] Coordinated care fee, risk adjusted maintenance 12/29 RENÉE PIÑA [facility] IV Infusion For Hydration 31 Minutes To 1 Hour IV Infusion For Hydration 31 Minutes To 1 Hour 86383 12/29 BOUBACAR RAMEY [facility] Radiation Physics Continuing Medical Consult, Quality A ur Radiation Physics Continuing Medical Consult, Quality Assur 79705 12/29 LASHONDA GARZA [facility] Radiation Delivery High Resolution Convergent Beam 3 Or More Radiation Delivery High Resolution Convergent Beam 3 Or More 88890 12/29 LASHONDA GARZA [facility] Radiation Stereosc X-Ray Guid For Localiz Target Volume Radiation Stereosc X-Ray Guid For Localiz Target Volume 00759 12/29 LASHONDA GARZA [facility] Radiation Delivery High Resolution Convergent Beam 3 Or More Radiation Delivery High Resolution Convergent Beam 3 Or More 54929 12/28 DANUTA LEYVA [facility] Radiation Stereosc X-Ray Guid For Localiz Target Volume Radiation Stereosc X-Ray Guid For Localiz Target Volume 33541 12/28 DANUTA LEYVA [facility] Intensity Modulated Radiation Treatment Delivery Complex Intensity Modulated Radiation Treatment Delivery Complex 10634 12/25 SRIDEVI BETHEA [facility] Radiation Stereosc X-Ray Guid For Localiz Target Volume Radiation Stereosc X-Ray Guid For Localiz Target Volume 78132 12/25 SRIDEVI BETHEA [facility] IV Infusion For Hydration 31 Minutes To 1 Hour IV Infusion For Hydration 31 Minutes To 1 Hour 79521 12/24 BRIGITTE RAMIREZ 1 liter N.S. [facility] Collection Of Blood Specimen Via Central/Peripheral Venous Catheter Collection Of Blood Specimen Via Central/Periphera l Venous Catheter 82679 12/24 BRIGITTE RAMIREZ [facility] Radiation Physics Special Consultation Radiation Physics Special Consultation 24201 12/24 TONY WADE [facility] Radiation Therapy Field Arrangement IMRT Using Multileaf Collimator Radiation Therapy Field Arrangement IMRT Using Multileaf Collimator 11017 12/24 TONY WADE [facility] Radiation Therapy Calculation Basic Dosimetry Radiation Therapy Calculation Basic Dosimetry 87940 12/24 TONY WADE Radiation Therapy Treatment Planning Complex Radiation Therapy Treatment Planning Complex 36484 12/24 TONY WADE 3-D Rendering Requiring Image Postproce ing 3-D Rendering Requiring Image Postprocessing 00303 12/24 TONY WADE Case Management, each 15 minutes 12/24 RENÉE PIÑA qfuv-na-amhp: 2,8,13,16 [facility] Coordinated care fee, risk adjusted maintenance, Level 3 12/24 RENÉE PIÑA Radiation Stereosc X-Ray Guid For Localiz Target Volume Radiation Stereosc X-Ray Guid For Localiz Target Volume 79575 12/24 TONY WADE Intensity Modulated Radiation Treatment Delivery Complex Intensity Modulated Radiation Treatment Delivery Complex 79863 12/24 TONY WADE IV Infusion For Hydration Each Additional Hour IV Infusion For Hydration Each Additional Hour 67792 12/22 JOEL IVY Radiation Physics Continuing Medical Consult, Quality A ur Radiation Physics Continuing Medical Consult, Quality Assur 60453 12/22 LASHONDA GARZA Intensity Modulated Radiation Treatment Delivery Complex Intensity Modulated Radiation Treatment Delivery Complex 24651 12/22 LASHONDA GARZA Radiation Stereosc X-Ray Guid For Localiz Target Volume Radiation Stereosc X-Ray Guid For Localiz Target Volume 90573 12/22 LASHONDA GARZA [facility] Medical Nutrition Therapy Initial A e ment And Intervention Each 15 Minutes Medical Nutrition Therapy Initial Assessment And Intervention Each 15 Minutes 38630 12/22 VIDHI MEDRANO Central IV PICC Insertion, Child Age 5 Or Older 12/21 LONA SANTOS Physician Supervised Injection IV Each Additional Sequential Push New Substance Physician Supervised Injection IV Each Additional Sequential Push New Substance 58661 12/21 PHIL JACKSON IV Infusion Concurr Hydration Additional Sequential Infusion IV Infusion Concurr Hydration Additional Sequential Infusion 48487 12/21 PHIL JACKSON Parenteral Fluids IV Infusion Each Additional Hour Parenteral Fluids IV Infusion Each Additional Hour 51258 12/21 PHIL JACKSON Parenteral Fluids IV Infusion Additional Sequential Infusion Parenteral Fluids IV Infusion Additional Sequential Infusion 38445 12/21 PHIL JACKSON Chemotherapy IV - Infusion Up To 1 Hour Chemotherapy IV - Infusion Up To 1 Hour 10793 12/21 PHIL JACKSON [facility] Radiation Stereosc X-Ray Guid For Localiz Target Volume Radiation Stereosc X-Ray Guid For Localiz Target Volume 14262 12/21 DANUTA LEYVA Intensity Modulated Radiation Treatment Delivery Complex Intensity Modulated Radiation Treatment Delivery Complex 29617 12/21 DANUTA LEYVA Radiation Therapy Simulation-Aided Field Setting Simple Radiation Therapy Simulation-Aided Field Setting Simple 56825 12/21 DANUTA LEYVA Immunization Administration By Injection, One Vaccine Immunization Administration By Injection, One Vaccine 84386 12/17 OMAR CARDENAS VIS was given. see immunization module. [facility] Pneumococcal Conjugate Vaccine, 13-Valent, IM Use Pneumococcal Conjugate Vaccine, 13-Valent, IM Use 33044 12/17 OMAR CARDENAS Pneumococcal conjugate PCV 13; Series #: 1; .5 mL; IM; Left Arm; Mfg: [id number]; Lot: [id number]; VIS given (Nida: 04/10/12). [facility] Medical Nutrition Therapy Group (2 or More Individuals) Each 30 Minutes Medical Nutrition Therapy Group (2 or More Individuals) Each 30 Minutes 97404 12/17 VIDHI MEDRANO [facility] Case Management, each 15 minutes 12/14 RENÉE PIÑA Face to Face: 2,8,9,13,16 [facility] Coordinated care fee, risk adjusted maintenance 12/14 RENÉE PIÑA [facility] 3-D Rendering Requiring Image Postproce ing 3-D Rendering Requiring Image Postprocessing 94311 12/11 ARELY WASHINGTON [facility] CT Guidance For Placement Of Radiation Therapy Joshi CT Guidance For Placement Of Radiation Therapy Joshi 51652 12/11 ARELY [place] Radiation Therapy Treatment Planning Complex Radiation Therapy Treatment Planning Complex 23693 12/11 ARELY [place] Radiation Treatment Devices, Design and Construction Complex Radiation Treatment Devices, Design and Construction Complex 64967 12/11 ARELY [place] Radiation Therapy Simulation-Aided Field Setting Complex Radiation Therapy Simulation-Aided Field Setting Complex 75739 12/11 ARELY WASHINGTON [facility] Case Management, each 15 minutes 12/07 RENÉE PIÑA F to F 2,,,16 [facility] Coordinated care fee, risk adjusted maintenance, Level 5 12/07 RENÉE PIÑA [facility] Health And Behav Intervention, Each Additional 15 Min Grp (2 Or More) Health And Behav Intervention, Each Additional 15 Min Grp (2 Or More) 76788 12/03 JESSICA JACKSON [facility] Physician Supervised Services Provision Of Educational Supplies Physician Supervised Services Provision Of Educational Supplies 33765 11/30 KINA HAWK V [facility] Case Management, each 15 minutes 11/30 RENÉE PIÑA FACE TO FACE, 2,8,13,16 [facility] Coordinated care fee, risk adjusted maintenance, Level 5 11/30 RENÉE PIÑA [facility] Health And Behav A e mt Each Additional 15 Min Aurea e ment Health And Behav Assessmt Each Additional 15 Min Reassessment 53512 11/24 ANDREW LEUNG [facility] Case Management, each 15 minutes 11/24 RENÉE PIÑA F2F: 2,8,11,13 [facility] Coordinated care fee, risk adjusted maintenance, Level 4 11/24 RENÉE PIÑA [facility] Immunization Administration By Injection, One Vaccine Immunization Administration By Injection, One Vaccine 67916 11/20 ARIS WAITE [facility] Influenza Split Virus Vaccine IM With Preservative Quadrivalent 0.50mL Dosage 11/20 RAVINDRAARIS MUELLER [place] Influenza, injectable, quadrivalent; Series #: 1; .5 mL; IM; Right Arm; Mfg: [employer]; Lot: [id number]; VIS given (Nida: 09/18/14). [facility] Case Management, each 15 minutes 11/17 RENÉE PIÑA F2F: 1,5,8,9,13,17 [facility] Coordinated care fee, risk adjusted maintenance, Level 3 11/17 RENÉE PIÑA [facility] Clinical Social Work Individual Outpatient Counseling 30 Minutes 11/16 GARRY GUZMÁN [facility] Laryngoscopy Diagnostic Flexible Laryngoscopy Diagnostic Flexible 03830 11/16 KERMIT ROBERTS [facility] Fine Needle Aspiration Of Deep Ti ue Under Radiologic Guid Fine Needle Aspiration Of Deep Tissue Under Radiologic Guid 70569 11/10 MICHELLE VANEGAS [facility] Laryngoscopy Diagnostic Flexible Laryngoscopy Diagnostic Flexible 55961 11/10 MICHELLE VANEGAS [facility] Typhoid Vaccine Vi Capsular Polysaccharide, For Intramus Use Typhoid Vaccine Vi Capsular Polysaccharide, For Intramus Use 47629 03/20 KAYY KELLEY Anthrax Vaccine For Subcutaneous Or Intramuscular Use Anthrax Vaccine For Subcutaneous Or Intramuscular Use 82461 03/20 KAYY KELLEY Vaccines Viral Polio, Inactivated Vaccines Viral Polio, Inactivated 77812 03/20 KAYY KELLEY Pneumococcal Polysaccharide Vaccine 23 Valent Intramuscular Pneumococcal Polysaccharide Vaccine 23 Valent Intramuscular 97296 03/20 KAYY KELLEY Screening Test Of Visual Acuity, Quantitative, Bilateral Screening Test Of Visual Acuity, Quantitative, Bilateral 60200 03/20 KAYY KELLEY Venipuncture Venipuncture 27290 03/20 KAYY KELLEY Left antecubital HIV & MMR Titer blood draw [facility] Immunization Administration By Injection, One Vaccine Immunization Administration By Injection, One Vaccine 15212 03/20 KAYY KELLEY Immunization Administration By Injection, Each Additional Vaccine Immunization Administration By Injection, Each Additional Vaccine 40657 03/20 KAYY KELLEY Audiometry Group Testing Audiometry Group Testing 56838 03/20 WERNER RENTERIA [facility] Spectacles Services Fitting Monofocal Except For Aphakia Spectacles Services Fitting Monofocal Except For Aphakia 21855 03/19 NARESH OWENS THE PROCEDURES NEEDED TO ORDER GLASSES, TO INCLUDE ANATOMICAL MEASUREMENTS AND FRAME FITTING, WAS DONE ON THE DATE OF THE APPOINTMENT. DUE TO STAFFING ISSUES, THE ACTUAL GLASSES ORDER WAS SUBMITTED EITHER THE SAME DAY OR THE FOLLOWING WORK DAY. SEE SRTS FOR DETAILS. [facility] Spectacles Services Fitting Bifocal Except For Aphakia Spectacles Services Fitting Bifocal Except For Aphakia 99318 06/05 NOHEMY ROCHA Measurements taken of pupil distance and frame sizes. [facility] Determination Of Refractive State Determination Of Refractive State 72239 06/05 NOHEMY ROCHA Ophthalmological New Patient Start Comprehensive Care Ophthalmological New Patient Start Comprehensive Care 54471 06/05 NOHEMY ROCHA Audiometry Group Testing Audiometry Group Testing 74328 06/01 LAUREANO CERVANTES [facility] Ear Protector Attenuation Measurements Ear Protector Attenuation Measurements 17761 12/19 ROSANNA COLE [facility] Audiometry Group Testing Audiometry Group Testing 69147 12/19 ROSANNA COLE [facility] Patient education, not otherwise cla ified, non-physician provider, group, per se ion 12/19 ROSANNA COLE. [facility] SKIN TEST; TUBERCULOSIS, INTRADERMAL 09/08 [facility] PURE TONE AUDIOMETRY (THRESHOLD); AIR ONLY 09/08 [facility] AUDIOMETRIC TESTING OF GROUPS 12/19 DoD ANTHRAX VACCINE, FOR SUBCUTANEOUS OR INTRAMUSCULAR USE 10/24 [facility] ANTHRAX VACCINE, FOR SUBCUTANEOUS OR INTRAMUSCULAR USE 10/10 DoD ANTHRAX VACCINE, FOR SUBCUTANEOUS OR INTRAMUSCULAR USE 09/18 [facility] IMMUNIZATION ADMINISTRATION (INCLUDES PERCUTANEOUS, INTRADERMAL, SUBCUTANEOUS, OR INTRAMUSCULAR INJECTIONS); EACH ADDITIONAL VACCINE (SINGLE OR COMBINATION VACCINE/TOXOID) 03/20 [facility] AUDIOMETRIC TESTING OF GROUPS 03/20 [facility] FITTING OF SPECTACLES, EXCEPT FOR APHAKIA; MONOFOCAL 03/19 [facility] DETERMINATION OF REFRACTIVE STATE 06/05 [facility] COLLECTION OF VENOUS BLOOD BY VENIPUNCTURE 06/01 [facility] AUDIOMETRIC TESTING OF GROUPS 06/01 [facility] TYPHOID VACCINE, ACETONE-KILLED, DRIED (AKD), FOR SUBCUTANEOUS USE (U.S. ) 06/08 [facility] SCREENING TEST OF VISUAL ACUITY, QUANTITATIVE, BILATERAL 06/08 [facility] DETERMINATION OF REFRACTIVE STATE 06/28 [facility] UNLISTED OTORHINOLARYNGOLOGICAL SERVICE OR PROCEDURE 06/14 [facility] TYPHOID VACCINE, ACETONE-KILLED, DRIED (AKD), FOR SUBCUTANEOUS USE (U.S. ) 12/01 DoD CASE MANAGEMENT, EACH 15 MINUTES 02/20 DoD CASE MANAGEMENT, EACH 15 MINUTES 02/16 [facility] MENTAL HEALTH SERVICES, NOT OTHERWISE SPECIFIED 02/08 DoD CASE MANAGEMENT, EACH 15 MINUTES 02/07 DoD CASE MANAGEMENT, EACH 15 MINUTES 02/01 DoD CASE MANAGEMENT, EACH 15 MINUTES 01/23 DoD MENTAL HEALTH SERVICES, NOT OTHERWISE SPECIFIED 01/18 [facility] MEDICATION THERAPY MANAGEMENT SERVICE(S) PROVIDED BY A PHARMACIST, INDIVIDUAL, [id number] WITH PATIENT, WITH ASSESSMENT AND INTERVENTION IF PROVIDED; INITIAL 15 MINUTES, ESTABLISHED PATIENT 01/16 [facility] CASE MANAGEMENT, EACH 15 MINUTES 01/15 DoD [...] FEE, RISK ADJUSTED MAINTENANCE, LEVEL 3 11/21 DoD MENTAL HEALTH SERVICES, NOT OTHERWISE SPECIFIED 11/15 DoD PSYCHOTHERAPY, 30 MINUTES WITH PATIENT 11/15 DoD COMM/WRK REINTEGRAT TRAIN (EG,SHOPPING,TRANSPORT ATION,MONEY MANAGEMENT,AVOC ACT &/ WRK ENVIRON/MODIFICATION ANAL,WRK TASK ANAL,USE OF ASST TECHNOLOGY DEV/ADPT EQUIP),DIR ONE-ON-ONE CONT,EA 15 MINUTES 11/14 [facility] RE-EVAL,PHYSICAL THERAPY EST PLAN OF CARE,REQ:EXAM,REV,HX & USE,STAND TESTS &DEB REQ;REV PLAN OF CARE USING STAND PAT ASSESS INSTR &/DEB ASSESS FUNC OUTCOME TYP,20 MIN SPENT [id number] W PAT&/FAM 11/14 DoD COORDINATED CARE FEE, RISK ADJUSTED MAINTENANCE, LEVEL 3 11/13 [facility] MEDICATION THERAPY MANAGEMENT SERVICE(S) PROVIDED BY A PHARMACIST, INDIVIDUAL, [id number] WITH PATIENT, WITH ASSESSMENT AND INTERVENTION IF PROVIDED; INITIAL 15 MINUTES, ESTABLISHED PATIENT 11/13 [facility] TELE ASSESS & MGT SRV PROV QUAL [...] DoD PSYCHOTHERAPY, 30 MINUTES WITH PATIENT 09/28 DoD CASE MANAGEMENT, EACH 15 MINUTES 09/26 DoD COORDINATED CARE FEE, RISK ADJUSTED MAINTENANCE 09/22 DoD COORDINATED CARE FEE, MAINTENANCE RATE 09/19 DoD COORDINATED CARE FEE, RISK ADJUSTED MAINTENANCE, LEVEL 3 09/04 DoD COORDINATED CARE FEE, RISK ADJUSTED MAINTENANCE, LEVEL 3 08/29 DoD COORDINATED CARE FEE, RISK ADJUSTED MAINTENANCE, LEVEL 3 08/21 [facility] DEVELOPMENT OF COGNITIVE SKILLS TO IMPROVE ATTENTION, MEMORY, PROBLEM SOLVING (INCLUDES COMPENSATORY TRAINING), DIRECT (ONE-ON-ONE) PATIENT CONTACT, EACH 15 MINUTES 08/09 [facility] MEDICATION THERAPY MGT SERVICE(S) PROVIDED,A PHARMACIST,INDIV,FACE- TO-FACE W PATIENT,WITH ASSESS & INTERVENE IF [...] FEE, RISK ADJUSTED MAINTENANCE, LEVEL 3 07/13 [facility] TELE ASSESS & MGT SRV PROV QUAL [...] 3 04/18 DoD PHYSICAL THERAPY RE-EVALUATION 04/11 [facility] PSYCHOTHERAPY, 30 MINUTES WITH PATIENT 04/11 [facility] FITTING OF SPECTACLES, EXCEPT FOR APHAKIA; BIFOCAL 04/11 DoD COORDINATED CARE FEE, RISK ADJUSTED MAINTENANCE, LEVEL 3 04/10 DoD MEDICATION THERAPY MANAGEMENT SERVICE(S) PROVIDED BY A PHARMACIST, INDIVIDUAL, [id number] WITH PATIENT, WITH ASSESSMENT AND INTERVENTION IF PROVIDED; INITIAL 15 MINUTES, ESTABLISHED PATIENT 04/10 DoD COORDINATED CARE FEE, RISK ADJUSTED MAINTENANCE, LEVEL 3 04/06 DoD COORDINATED CARE FEE, RISK ADJUSTED MAINTENANCE, LEVEL 3 03/31 DoD COORDINATED CARE FEE, RISK ADJUSTED MAINTENANCE, LEVEL 3 03/20 DoD COORDINATED CARE FEE, RISK ADJUSTED MAINTENANCE, LEVEL 3 03/14 [facility] TELE ASSESS & MGT SRV PROV QUAL [...] DoD CASE MANAGEMENT, EACH 15 MINUTES 02/01 [facility] THERAPEUTIC PROCEDURE(S), GROUP (2 OR MORE INDIVIDUALS) 01/16 DoD COORDINATED CARE FEE, RISK ADJUSTED MAINTENANCE 01/16 [facility] COMM/WRK REINTEGRAT TRAIN (EG,SHOPPING,TRANSPORT ATION,MONEY MANAGEMENT,AVOC ACT &/ WRK ENVIRON/MODIFICATION ANAL,WRK TASK ANAL,USE OF ASST TECHNOLOGY DEV/ADPT EQUIP),DIR ONE-ON-ONE CONT,EA 15 MINUTES 01/11 DoD PHYSICAL THERAPY RE-EVALUATION 01/11 DoD MEDICATION THERAPY MANAGEMENT SERVICE(S) PROVIDED BY A PHARMACIST, INDIVIDUAL, LELL-LI-COSE WITH PATIENT, WITH ASSESSMENT AND INTERVENTION IF PROVIDED; INITIAL 15 MINUTES, ESTABLISHED PATIENT 01/10 DoD CASE MANAGEMENT, EACH 15 MINUTES 01/09 DoD PSYCHIATRIC EVALUATION OF HOSPITAL RECORDS, OTHER PSYCHIATRIC [...] MANAGEMENT SERVICE(S) PROVIDED BY A PHARMACIST, INDIVIDUAL, [id number] WITH PATIENT, WITH ASSESSMENT AND INTERVENTION IF [...] PROCEDURE(S), GROUP (2 OR MORE INDIVIDUALS) 10/31 DoD PHYSICAL THERAPY EVALUATION 10/31 DoD CASE MANAGEMENT, EACH 15 MINUTES 10/26 DoD PURE TONE AUDIOMETRY (THRESHOLD); AIR ONLY 10/25 DoD COMM/WRK REINTEGRAT TRAIN (EG,SHOPPING,TRANSPORT ATION,MONEY MANAGEMENT,AVOC ACT &/ WRK ENVIRON/MODIFICATION ANAL,WRK TASK ANAL,USE OF ASST TECHNOLOGY DEV/ADPT EQUIP),DIR ONE-ON-ONE CONT,EA 15 MINUTES 10/24 DoD CASE MANAGEMENT, EACH 15 MINUTES 10/20 [facility] MEDICATION THERAPY MANAGEMENT SERVICE(S) PROVIDED BY A PHARMACIST, INDIVIDUAL, [id number] WITH PATIENT, WITH ASSESSMENT AND INTERVENTION IF PROVIDED; INITIAL 15 MINUTES, NEW PATIENT 10/18 [facility] PSYCHIATRIC DIAGNOSTIC EVALUATION 10/12 DoD CASE MANAGEMENT, EACH 15 MINUTES 10/12 DoD COORDINATED CARE FEE, MAINTENANCE RATE 10/12 [facility] FINE NEEDLE ASPIRATION; WITH IMAGING GUIDANCE 11/10 [...] MEDICAL NUTRITION THERAPY; RE-ASSESSMENT AND INTERVENTION, INDIVIDUAL, [id number] WITH THE PATIENT, EACH 15 MINUTES 06/10 DoD PSYCHOTHERAPY, 45 MINUTES WITH PATIENT 06/07 DoD COORDINATED CARE FEE, RISK ADJUSTED MAINTENANCE, LEVEL 5 06/06 DoD MEDICAL NUTRITION THERAPY; RE-ASSESSMENT AND INTERVENTION, INDIVIDUAL, [id number] WITH THE PATIENT, EACH 15 MINUTES 06/03 DoD COORDINATED CARE FEE, RISK ADJUSTED MAINTENANCE, LEVEL 3 05/30 DoD MEDICAL NUTRITION THERAPY; RE-ASSESSMENT AND INTERVENTION, INDIVIDUAL, [id number] WITH THE PATIENT, EACH 15 MINUTES 05/24 DoD PSYCHOTHERAPY, 45 MINUTES WITH PATIENT 05/24 [facility] LARYNGOSCOPY, FLEXIBLE; DIAGNOSTIC 05/23 DoD PSYCHOTHERAPY, 45 MINUTES WITH PATIENT 05/18 DoD MEDICAL NUTRITION THERAPY; RE-ASSESSMENT AND INTERVENTION, INDIVIDUAL, [id number] WITH THE PATIENT, EACH 15 MINUTES 05/17 DoD COORDINATED CARE FEE, MAINTENANCE RATE 05/16 DoD CASE MANAGEMENT, EACH 15 MINUTES 05/10 DoD PSYCHOTHERAPY, 45 MINUTES WITH PATIENT 05/10 DoD COORDINATED CARE FEE, RISK ADJUSTED MAINTENANCE, LEVEL 3 05/10 DoD CASE MANAGEMENT, EACH 15 MINUTES 05/04 [facility] ULTRASOUND, SOFT TISSUES OF HEAD AND NECK (EG, THYROID, PARATHYROID, PAROTID), REAL TIME WITH IMAGE DOCUMENTATION 04/26 DoD PSYCHOTHERAPY, 45 MINUTES WITH PATIENT 04/26 DoD COORDINATED CARE FEE, RISK ADJUSTED MAINTENANCE 04/25 DoD MEDICAL NUTRITION THERAPY; RE-ASSESSMENT AND INTERVENTION, INDIVIDUAL, [id number] WITH THE PATIENT, EACH 15 MINUTES 04/22 DoD PSYCHOTHERAPY, 45 MINUTES WITH PATIENT 04/20 DoD COORDINATED CARE FEE, MAINTENANCE RATE 04/18 DoD MEDICAL NUTRITION THERAPY; RE-ASSESSMENT AND INTERVENTION, INDIVIDUAL, [id number] WITH THE PATIENT, EACH 15 MINUTES 04/12 [facility] COORDINATED CARE FEE, RISK ADJUSTED MAINTENANCE, LEVEL 5 [facility] EDUCATION &TRAINING, PATIENT SELF-MGT QUALIFIED, 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 CURRICULUM, LEQG-WP-EMDD W THE PATIENT (COULD INCL CAREGIVER/FAMILY) EA 30 MIN; INDIVIDUAL PATIENT 04/06 DoD COORDINATED CARE FEE, RISK ADJUSTED MAINTENANCE, LEVEL 4 04/05 DoD COORDINATED CARE FEE, RISK ADJUSTED MAINTENANCE, LEVEL 3 03/30 [facility] CASE MANAGEMENT, EACH 15 MINUTES 03/23 DoD COORDINATED CARE FEE, MAINTENANCE RATE 03/15 DoD COORDINATED CARE FEE, RISK ADJUSTED MAINTENANCE, LEVEL 4 03/09 DoD COORDINATED CARE FEE, RISK ADJUSTED MAINTENANCE, LEVEL 4 03/08 DoD COORDINATED CARE FEE, RISK ADJUSTED MAINTENANCE, LEVEL 4 03/03 DoD COORDINATED CARE FEE, RISK ADJUSTED MAINTENANCE, LEVEL 3 02/22 [facility] COORDINATED CARE FEE, RISK ADJUSTED MAINTENANCE 02/15 [facility] INTENSITY MODULATED RADIATION TREATMENT DELIVERY (IMRT), INCLUDES GUIDANCE AND TRACKING, WHEN PERFORMED; COMPLEX 02/10 [facility] SPEECH AUDIOMETRY THRESHOLD; WITH SPEECH RECOGNITION 02/09 [facility] INTRAVENOUS INFUSION, HYDRATION; INITIAL, 31 MINUTES TO 1 HOUR 02/09 [facility] INTENSITY MODULATED RADIATION TREATMENT DELIVERY (IMRT), INCLUDES GUIDANCE AND TRACKING, WHEN PERFORMED; SIMPLE 02/09 [facility] INTRAVENOUS INFUSION, HYDRATION; INITIAL, 31 MINUTES TO 1 HOUR 02/08 [facility] COORDINATED CARE FEE, RISK ADJUSTED MAINTENANCE, LEVEL 5 02/08 [facility] INTENSITY MODULATED RADIATION TREATMENT DELIVERY (IMRT), INCLUDES GUIDANCE AND TRACKING, WHEN PERFORMED; COMPLEX 02/08 [facility] BASIC RAD DOSIMETRY CALC,CENTRL AXIS DPTH DOS CALC,TDF,NSD,GAP CALC,OFF AXIS FACTOR,TISS INHOMOGENEITY FACTORS,CALC,NON-IONIZ ING RAD SURF&DEPTH DOS, REQD COURSE,TX, WHEN PRESCRIBED TREAT PHYS 02/04 [facility] CONTINUING MEDICAL PHYSICS CONSULT, INCL ASSESSMENT OF TREAT PARAMETERS, ECONOMIC RESEARCH ASSISTANT OF DOSE DELIVERY, & REVIEW OF PATIENT TREAT DOC IN SUPP OF THE RAD ONCOLOGIST, REPORTED PER WEEK OF THERAPY 02/03 [facility] COORDINATED CARE FEE, RISK ADJUSTED MAINTENANCE, LEVEL 5 02/02 [facility] INTENSITY MODULATED RADIATION TREATMENT DELIVERY (IMRT), INCLUDES GUIDANCE AND TRACKING, WHEN PERFORMED; SIMPLE 02/02 [facility] COORDINATED CARE FEE, RISK ADJUSTED MAINTENANCE, LEVEL 5 02/01 [facility] UNCLASSIFIED DRUGS 02/01 [facility] INTENSITY MODULATED RADIATION TREATMENT DELIVERY (IMRT), INCLUDES GUIDANCE AND TRACKING, WHEN PERFORMED; COMPLEX 02/01 [facility] INTRAVENOUS INFUSION, HYDRATION; INITIAL, 31 MINUTES TO 1 HOUR 01/29 [facility] INTENSITY MODULATED RADIATION TREATMENT DELIVERY (IMRT), INCLUDES GUIDANCE AND TRACKING, WHEN PERFORMED; SIMPLE 01/29 [facility] INTRAVENOUS INFUSION, HYDRATION; INITIAL, 31 MINUTES TO 1 HOUR 01/28 [facility] INTENSITY MODULATED RADIATION TREATMENT DELIVERY (IMRT), INCLUDES GUIDANCE AND TRACKING, WHEN PERFORMED; COMPLEX 01/28 [facility] INTRAVENOUS INFUSION, HYDRATION; INITIAL, 31 MINUTES TO 1 HOUR 01/27 [facility] CONTINUING MEDICAL PHYSICS CONSULT, INCL ASSESSMENT OF TREAT PARAMETERS, ECONOMIC RESEARCH ASSISTANT OF DOSE DELIVERY, & REVIEW OF PATIENT TREAT DOC IN SUPP OF THE RAD ONCOLOGIST, REPORTED PER WEEK OF THERAPY 01/27 [facility] GASTRIC INTUBATION AND ASPIRATION(S) THERAPEUTIC, NECESSITATING PHYSICIAN'S SKILL (EG, FOR GASTROINTESTINAL HEMORRHAGE), INCLUDING LAVAGE IF PERFORMED 01/26 [facility] INTRAVENOUS INFUSION, HYDRATION; INITIAL, 31 MINUTES TO 1 HOUR 01/26 [facility] INTENSITY MODULATED RADIATION TREATMENT DELIVERY (IMRT), INCLUDES GUIDANCE AND TRACKING, WHEN PERFORMED; COMPLEX 01/26 [facility] COORDINATED CARE FEE, RISK ADJUSTED MAINTENANCE, LEVEL 5 01/25 [facility] INTRAVENOUS INFUSION, HYDRATION; INITIAL, 31 MINUTES TO 1 HOUR 01/25 [facility] INTENSITY MODULATED RADIATION TREATMENT DELIVERY (IMRT), INCLUDES GUIDANCE AND TRACKING, WHEN PERFORMED; SIMPLE 01/25 [facility] PSYCHOTHERAPY, 45 MINUTES WITH PATIENT 01/22 [facility] INTRAVENOUS INFUSION, HYDRATION; INITIAL, 31 MINUTES TO 1 HOUR 01/22 [facility] GUIDANCE FOR LOCALIZATION OF TARGET VOLUME FOR DELIVERY OF RADIATION TREATMENT, INCLUDES INTRAFRACTION TRACKING, WHEN PERFORMED 01/22 [facility] COLLECTION OF BLOOD SPECIMEN USING ESTABLISHED CENTRAL OR PERIPHERAL CATHETER, VENOUS, NOT OTHERWISE SPECIFIED 01/21 [facility] TREATMENT DEVICES, DESIGN AND CONSTRUCTION; COMPLEX (IRREGULAR BLOCKS, SPECIAL BIRCH, COMPENSATORS, WEDGES, MOLDS OR CASTS) 01/21 [facility] MEDICAL NUTRITION THERAPY; INITIAL ASSESSMENT AND INTERVENTION, INDIVIDUAL, [id number] WITH THE PATIENT, EACH 15 MINUTES 01/20 [facility] INTRAVENOUS INFUSION, HYDRATION; INITIAL, 31 MINUTES TO 1 HOUR 01/20 [facility] INTENSITY MODULATED RADIATION TREATMENT DELIVERY (IMRT), INCLUDES GUIDANCE AND TRACKING, WHEN PERFORMED; COMPLEX 01/20 [facility] INTRAVENOUS INFUSION, HYDRATION; INITIAL, 31 MINUTES TO 1 HOUR 01/19 [facility] EDUCATION &TRAINING, PATIENT SELF-MGT QUALIFIED, 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, [id number] W THE PATIENT (COULD INCL CAREGIVER/FAMILY) EA 30 MIN; INDIVIDUAL PATIENT 01/19 [facility] INTENSITY MODULATED RADIATION TREATMENT DELIVERY (IMRT), INCLUDES GUIDANCE AND TRACKING, WHEN PERFORMED; SIMPLE 01/19 [facility] COORDINATED CARE FEE, RISK ADJUSTED MAINTENANCE, LEVEL 4 01/18 [facility] INTRAVENOUS INFUSION, HYDRATION; EACH ADDITIONAL HOUR (LIST SEPARATELY IN ADDITION TO CODE FOR PRIMARY PROCEDURE) 01/18 [facility] INTENSITY MODULATED RADIATION TREATMENT DELIVERY (IMRT), INCLUDES GUIDANCE AND TRACKING, WHEN PERFORMED; SIMPLE 01/18 [facility] INJECTION, ONDANSETRON HCL, PER 1 MG 01/17 [facility] INTENSITY MODULATED RADIATION TREATMENT DELIVERY (IMRT), INCLUDES GUIDANCE AND TRACKING, WHEN PERFORMED; SIMPLE 01/15 [facility] INTRAVENOUS INFUSION, HYDRATION; EACH ADDITIONAL HOUR (LIST SEPARATELY IN ADDITION TO CODE FOR PRIMARY PROCEDURE) 01/14 [facility] COORDINATED CARE FEE, RISK ADJUSTED MAINTENANCE 01/14 [facility] INTENSITY MODULATED RADIATION TREATMENT DELIVERY (IMRT), INCLUDES GUIDANCE AND TRACKING, WHEN PERFORMED; SIMPLE 01/14 [facility] INTENSITY MODULATED RADIATION TREATMENT DELIVERY (IMRT), INCLUDES GUIDANCE AND TRACKING, WHEN PERFORMED; SIMPLE 01/13 [facility] INTRAVENOUS INFUSION, HYDRATION; EACH ADDITIONAL HOUR (LIST SEPARATELY IN ADDITION TO CODE FOR PRIMARY PROCEDURE) 01/12 [facility] INTENSITY MODULATED RADIATION TREATMENT DELIVERY (IMRT), INCLUDES GUIDANCE AND TRACKING, WHEN PERFORMED; COMPLEX 01/12 [facility] HEALTH&BEHAV ASSESSMENT (EG, HEALTH-FOC CLINICAL INTERVIEW, BEHAVIORAL OBSERVATIONS, PSYCHOPHYSICOLOGICAL MONITOR, HEALTH-ORIENT QUESTIONNAIRES), EA 15 MIN [id number] W THE PATIENT; INIT ASSESSMENT 01/11 [facility] INTRAVENOUS INFUSION, FOR THERAPY, PROPHYLAXIS, OR DIAGNOSIS (SPECIFY SUBSTANCE OR DRUG); EACH ADDITIONAL HOUR (LIST SEPARATELY IN ADDITION TO CODE FOR PRIMARY PROCEDURE) 01/11 [facility] INTENSITY MODULATED RADIATION TREATMENT DELIVERY (IMRT), INCLUDES GUIDANCE AND TRACKING, WHEN PERFORMED; SIMPLE 01/11 [facility] URINALYSIS, BY DIP STICK OR TABLET REAGENT FOR BILIRUBIN, GLUCOSE, HEMOGLOBIN, KETONES, LEUKOCYTES, NITRITE, PH, PROTEIN, SPEC GRAVITY, UROBILINOGEN, ANY NUMBER OF CONSTITUENTS; W/O MICRO, NON-AUTO 01/09 [facility] INTENSITY MODULATED RADIATION TREATMENT DELIVERY (IMRT), INCLUDES GUIDANCE AND TRACKING, WHEN PERFORMED; SIMPLE 01/08 [facility] INTENSITY MODULATED RADIATION TREATMENT DELIVERY (IMRT), INCLUDES GUIDANCE AND TRACKING, WHEN PERFORMED; COMPLEX 01/06 [facility] INTRAVENOUS INFUSION, HYDRATION; INITIAL, 31 MINUTES TO 1 HOUR 01/05 [facility] MEDICAL NUTRITION THERAPY; INITIAL ASSESSMENT AND INTERVENTION, INDIVIDUAL, [id number] WITH THE PATIENT, EACH 15 MINUTES 01/05 [facility] INTENSITY MODULATED RADIATION TREATMENT DELIVERY (IMRT), INCLUDES GUIDANCE AND TRACKING, WHEN PERFORMED; SIMPLE 01/05 [facility] CASE MANAGEMENT, EACH 15 MINUTES 01/04 [facility] COORDINATED CARE FEE, RISK ADJUSTED MAINTENANCE, LEVEL 4 01/04 [facility] INTENSITY MODULATED RADIATION TREATMENT DELIVERY (IMRT), INCLUDES GUIDANCE AND TRACKING, WHEN PERFORMED; COMPLEX 01/04 [facility] CASE MANAGEMENT, EACH 15 MINUTES 01/01 [facility] INTENSITY MODULATED RADIATION TREATMENT DELIVERY (IMRT), INCLUDES GUIDANCE AND TRACKING, WHEN PERFORMED; COMPLEX 01/01 [facility] INTENSITY MODULATED RADIATION TREATMENT DELIVERY (IMRT), INCLUDES GUIDANCE AND TRACKING, WHEN PERFORMED; COMPLEX 12/31 [facility] SCREENING TEST OF VISUAL ACUITY, QUANTITATIVE, BILATERAL 12/31 [facility] DISTORTION PRODUCT EVOKED OTOACOUSTIC EMISSIONS;COMPREHENSIV E DIAG EVALUATION (QUANTITATIVE ANALYSIS OF OUTER HAIR CELL FUNCTION,COCHLEAR MAPPING,MINIMUM OF 12 FREQUENCIES),W INTERPRETATION &REPORT 12/30 [facility] INTENSITY MODULATED RADIATION TREATMENT DELIVERY (IMRT), INCLUDES GUIDANCE AND TRACKING, WHEN PERFORMED; COMPLEX 12/30 [facility] CASE MANAGEMENT, EACH 15 MINUTES 12/29 [facility] INTRAVENOUS INFUSION, HYDRATION; INITIAL, 31 MINUTES TO 1 HOUR 12/29 [facility] INTENSITY MODULATED RADIATION TREATMENT DELIVERY (IMRT), INCLUDES GUIDANCE AND TRACKING, WHEN PERFORMED; SIMPLE 12/29 [facility] INTENSITY MODULATED RADIATION TREATMENT DELIVERY (IMRT), INCLUDES GUIDANCE AND TRACKING, WHEN PERFORMED; SIMPLE 12/28 [facility] INTENSITY MODULATED RADIATION TREATMENT DELIVERY (IMRT), INCLUDES GUIDANCE AND TRACKING, WHEN PERFORMED; COMPLEX 12/25 [facility] INTRAVENOUS INFUSION, HYDRATION; INITIAL, 31 MINUTES TO 1 HOUR 12/24 [facility] COORDINATED CARE FEE, RISK ADJUSTED MAINTENANCE, LEVEL 3 12/24 [facility] SPECIAL MEDICAL RADIATION PHYSICS CONSULTATION 12/24 [facility] INTRAVENOUS INFUSION, HYDRATION; EACH ADDITIONAL HOUR (LIST SEPARATELY IN ADDITION TO CODE FOR PRIMARY PROCEDURE) 12/22 [facility] INTENSITY MODULATED RADIATION TREATMENT DELIVERY (IMRT), INCLUDES GUIDANCE AND TRACKING, WHEN PERFORMED; COMPLEX 12/22 [facility] MEDICAL NUTRITION THERAPY; INITIAL ASSESSMENT AND INTERVENTION, INDIVIDUAL, [id number] WITH THE PATIENT, EACH 15 MINUTES 12/21 [facility] THERAPEUTIC,PROPHYLACT IC,OR DIAGNOSTIC INJECTION (SPECIFY SUBSTANCE/DRUG);EA ADDITIONAL SEQUENTIAL INTRAVENOUS PUSH OF A NEW SUBSTANCE/DRUG (LIST SEPARATELY IN ADDITION TO CODE FOR PRIMARY PROCEDURE) 12/21 [facility] INSERTION OF PERIPHERALLY INSERTED CENTRAL VENOUS CATHETER (PICC), WITHOUT SUBCUTANEOUS PORT OR PUMP, WITHOUT IMAGING GUIDANCE; AGE 5 YEARS OR OLDER 12/21 [facility] GUIDANCE FOR LOCALIZATION OF TARGET VOLUME FOR DELIVERY OF RADIATION TREATMENT, INCLUDES INTRAFRACTION TRACKING, WHEN PERFORMED 12/21 [facility] IMMUNIZATION ADMINISTRATION (INCLUDES PERCUTANEOUS, INTRADERMAL, SUBCUTANEOUS, OR INTRAMUSCULAR INJECTIONS); 1 VACCINE (SINGLE OR COMBINATION VACCINE/TOXOID) 12/17 [facility] MEDICAL NUTRITION THERAPY; GROUP (2 OR MORE INDIVIDUAL(S)), EACH 30 MINUTES 12/16 [facility] CASE MANAGEMENT, EACH 15 MINUTES 12/14 [facility] INTRODUCTION OF NUTRITIONAL SUBSTANCE INTO UPPER GI, VIA NATURAL OR ARTIFICIAL OPENING 12/11 [facility] EXCISION OF ANTERIOR NECK SUBCUTANEOUS TISSUE AND FASCIA, PERCUTANEOUS APPROACH 12/11 [facility] REMOVAL OF FEEDING DEVICE FROM STOMACH, VIA NATURAL OR ARTIFICIAL OPENING ENDOSCOPIC 12/11 [facility] INSERTION OF FEEDING DEVICE INTO STOMACH, VIA NATURAL OR ARTIFICIAL OPENING ENDOSCOPIC 12/11 [facility] INSERTION OF FEEDING DEVICE INTO STOMACH, PERCUTANEOUS APPROACH 12/11 [facility] 3D RENDERING W INTERPRET &REPORTING OF COMPUTED TOMOGR,MAG RES IMG,ULTRASND,OR OTH TOMOGR MODALITY W IMAG POSTPROCESS UNDER CONCURR SUPERVISION;REQUIRING IMAG POSTPROCESS ON AN INDEPENDEN WRKSTATION 12/11 [facility] POSTOPERATIVE FOLLOW-UP VISIT, NORMALLY INCLUDED IN THE SURGICAL PACKAGE, INDICATE THAT EVALUATION & MANAGEMENT SERVICE WAS PERFORMED DURING A POSTOPERATIVE PERIOD REASON RELATED ORIGINAL PROCEDURE 12/11 [facility] FINE NEEDLE ASPIRATION; WITH IMAGING GUIDANCE 12/10 [facility] UNLISTED SPECIAL SERVICE, PROCEDURE OR REPORT 12/10 [facility] CASE MANAGEMENT, EACH 15 MINUTES 12/07 [facility] HEALTH AND BEHAVIOR INTERVENTION, EACH 15 MINUTES, [id number]; GROUP (2 OR MORE PATIENTS) 12/02 [facility] CASE MANAGEMENT, EACH 15 MINUTES 11/30 [facility] UNLISTED SPECIAL SERVICE, PROCEDURE OR REPORT 11/26 [facility] EDUCATIONAL SUPPLIES, SUCH BOOKS, TAPES, AND PAMPHLETS, FOR THE PATIENT'S EDUCATION AT COST TO PHYSICIAN OR OTHER QUALIFIED HEALTH [employer] WAREHOUSE 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 11/25 [facility] CASE MANAGEMENT, EACH 15 MINUTES 11/24 [facility] IMMUNIZATION ADMINISTRATION (INCLUDES PERCUTANEOUS, INTRADERMAL, SUBCUTANEOUS, OR INTRAMUSCULAR INJECTIONS); 1 VACCINE (SINGLE OR COMBINATION VACCINE/TOXOID) 11/20 [facility] HEALTH AND BEHAVIOR ASSESS (EG, HEALTH-FOC CLIN INTERVIEW, BEHAVIORAL OBSERVATIONS, PSYCHOPHYSICOLOGICAL MON, HEALTH-ORIENTED QUESTIONNAIRES), EACH 15 MIN [id number] WITH THE PATIENT; RE-ASSESS 11/19 [facility] CASE MANAGEMENT, EACH 15 MINUTES 11/17 [facility] PSYCHOTHERAPY, 30 MINUTES WITH PATIENT 11/16 [facility] LARYNGOSCOPY, FLEXIBLE; DIAGNOSTIC 11/16 [facility] Social History Combined list of available smoking, tobacco, and other social history from Department of Defense and Veterans Affairs facilities. 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 [facility] Plan of Care List of future care activities from Department of Veterans Affairs facilities. Additional future care activities may be listed in the Assessment and Plan section. Date/Time Care Activity Care Activity Detail Facili ty 01/02/2024 AMBULATORY - REHAB MEDICINE AMBULATORY - REHAB MEDICINE [facility] 01/08/2024 AMBULATORY - NONE [facility] NONE [facility] 01/11/2024 AMBULATORY - REHAB MEDICINE AMBULATORY - REHAB MEDICINE [facility] 01/11/2024 AMBULATORY - REHAB MEDICINE AMBULATORY - REHAB MEDICINE [facility] 01/16/2024 AMBULATORY - REHAB MEDICINE AMBULATORY - REHAB MEDICINE [facility] 01/25/2024 AMBULATORY - REHAB MEDICINE AMBULATORY - REHAB MEDICINE [facility] 03/24/2024 AMBULATORY - NONE [facility]ORY - NONE [facility] 12/21/2023 Laboratory - Chemistry Order BAS IC METABOLIC PANEL+MG PLASMA [facility] 12/21/2023 Laboratory - Chemistry Order AST/SGOT GRECIA [facility] 12/25/2023 Consult Order [facility] Manager's Choice [facility]
--- OUTSIDE RECORDS SUMMARY | 2024-01-02 23:06 | XMS_ITS | Encounter Summary ---
Author Name [facility] [place] [facility] Address [address] [place] [address] Care Team Providers Care Feeder Operator Automatic Name Role Phone KATELYN PATTON Primary Care Provider Unavailabl e Selected Encounter This section includes the information on record at [facility] for the Encounter. Date/Time Encounter Type Encounter Description Reason Pro vider Source Oct 01, 2023 02:15 PM Outpatient Encounter EVENT (HISTORICAL) E Encounter Template Text not used by [facility] Plan of Treatment: Future Appointments (+ 6 months) and Future Tests (+/- 45 days) The Plan of Treatment section includes future care activities for the patient from all [place] treatmentfacilities. This section includes future appointments and future orders which are active, pending or scheduled. Future Appointments This section includes appointments that were scheduled to occur 6 months from the date of the Encounter, up to a maximum of 20 appointments. The data comes from all [place] treatment facilities. Appointment Date/Time Appointment Type Appointme nt Facility Name Oct 26, 2023 05:30 PM AMBULATORY - REHAB MEDICIN E [facility] Nov 26, 2023 02:00 PM AMBULATORY - NONE [facility] Nov 28, 2023 10:30 AM AMBULATORY - REHAB MEDICIN E [facility] Dec 17, 2023 10:38 AM AM[facility]ORY - NONE [facility] Dec 21, 2023 11:30 AM AMBULATORY - REHAB MEDICIN E [facility] Dec 25, 2023 12:30 PM AMBULATORY - MEDICINE [facility] Jan 02, 2024 01:30 PM AMBULATORY - REHAB MEDICIN E [facility] Jan 08, 2024 10:30 AM AMBULATORY - NONE [facility] Jan 11, 2024 05:00 PM AMBULATORY - REHAB MEDICIN E [facility] Jan 11, 2024 05:10 PM AMBULATORY - REHAB MEDICIN E [facility] Jan 16, 2024 10:00 AM AMBULATORY - REHAB MEDICIN E [facility] Jan 25, 2024 08:00 AM AMBULATORY - REHAB MEDICIN E [facility] Mar 24, 2024 11:45 AM AMBULATORY - NONE [facility] Active, Pending, and Scheduled Orders This section includes a listing of several types of active, pending, and scheduled orders, including clinic medications orders, diagnostic test orders, procedure orders and consult orders; where the start date of the order is 45 days before the date of the Encounter or 45 days after the date of theEncounter. The data comes from all [place] treatment facilities. Test Date/Time Test Type Test Details Facility Name Oct 01, 2023 08:04 PM Consult Order [facility] Yard Switcher's Choice [facility] Social History: Smoking Status (Most current) and Tobacco Use (All prior to encounter date) This section includes the most current, and the historical, smoking and tobacco- related health factors from the [place] facility where the Encounter took place. Current Smoking Status This section includes the most current smoking, or tobacco-related health factor, from the [place] facility where the Encounter took place. Date/Time Current Smoking Status Comment Michelle macario Feb 07, 2017 09:25 AM LIFETIME NON-TOBACCO USER [facility] Tobacco Use History This section includes a history of the smoking, or tobacco-related health factors, that were collected on or before the date of the Encounter. The data comes from the [place] facility where the Encounter took place. Date/Time Smoking Status/Tobacco Use Comment F acility Aug 28, 2011 10:21 AM LIFETIME NON-TOBACCO USER [facility] Radiology Reports: +/- 30 days of [...] the Encounter. The data comes from all [place] treatment facilities. 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 Sammie Topete LAST CREATININE 1.4 [...] of findings. VERIFIED BY: / *ELECTRONICALLY FILED* [facility]
--- OUTSIDE RECORDS SUMMARY | 2024-01-02 23:06 | XMS_ITS | Encounter Summary ---
Author Name [facility] [place] Organization [place] Address [address] [place] [address] Care Team Providers Care Nonprofit Financial Controller Name Role Phone KATELYN PATTON Primary Care Provider Unavailabl e Selected Encounter This section includes the information on record at [place] for the Encounter. Date/Time Encounter Type Encounter Description Reason Pro vider Source Oct 08, 2023 01:15 PM Outpatient Encounter COMMUNITY CARE CONSULT IHE Encounter Template Text not used by [place] Plan of Treatment: Future Appointments (+ 6 months) and Future Tests (+/- 45 days) The Plan of Treatment section includes future care activities for the patient from all [place] treatmentfacilities. This section includes future appointments and future orders which are active, pending or scheduled. Future Appointments This section includes appointments that were scheduled to occur 6 months from the date of the Encounter, up to a maximum of 20 appointments. The data comes from all [place] treatment facilities. Appointment Date/Time Appointment Type Appointme nt Facility Name Oct 26, 2023 05:30 PM AMBULATORY - REHAB MEDICIN E [facility] Nov 26, 2023 02:00 PM [facility]ORY [place] NONE [place] [facility] Nov 28, 2023 10:30 AM AMBULATORY - REHAB MEDICIN E [facility] Dec 17, 2023 10:38 AM [facility] [place] [facility] Dec 21, 2023 11:30 AM AMBULATORY - REHAB MEDICIN E [facility] Dec 25, 2023 12:30 PM [facility] Jan 02, 2024 01:30 PM AMBULATORY - REHAB MEDICIN E [facility] Jan 08, 2024 10:30 AM AMBULATORY - NONE [facility] Jan 11, 2024 05:00 PM AMBULATORY - REHAB MEDICIN E [facility] Jan 11, 2024 05:10 PM AMBULATORY - REHAB MEDICIN E [facility] Jan 16, 2024 10:00 AM AMBULATORY - REHAB MEDICIN E [facility] Jan 25, 2024 08:00 AM AMBULATORY - REHAB MEDICIN E [facility] Mar 24, 2024 11:45 AM AMBULATORY - NONE [facility] Active, Pending, and Scheduled Orders This section includes a listing of several types of active, pending, and scheduled orders, including clinic medications orders, diagnostic test orders, procedure orders and consult orders; where the start date of the order is 45 days before the date of the Encounter or 45 days after the date of theEncounter. The data comes from all [place] treatment facilities. Test Date/Time Test Type Test Details Facility Name Oct 01, 2023 08:04 PM Consult Order [facility] Cons [facility] Social History: Smoking Status (Most current) and Tobacco Use (All prior to encounter date) This section includes the most current, and the historical, smoking and tobacco- related health factors from the [place] facility where the Encounter took place. Current Smoking Status This section includes the most current smoking, or tobacco-related health factor, from the [place] facility where the Encounter took place. Date/Time Current Smoking Status Comment Michelle macario Feb 07, 2017 09:25 AM LIFETIME NON-TOBACCO USER [facility] Tobacco Use History This section includes a history of the smoking, or tobacco-related health factors, that were collected on or before the date of the Encounter. The data comes from the [place] facility where the Encounter took place. Date/Time Smoking Status/Tobacco Use Comment F acility Aug 28, 2011 10:21 AM LIFETIME NON-TOBACCO USER [facility] Radiology Reports: +/- 30 days of the [...] the Encounter. The data comes from all [place] treatment facilities. 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 Sammie Topete LAST CREATININE 1.4 [...] VERIFIED BY: / *ELECTRONICALLY FILED* [facility] Encounter Notes: All associated encounter notes This section contains the clinical notes associated to the Encounter. Date/Time Encounter Note(s) Provider Source Oct 08, 2023 01:15 PM NONVA NOTE: LOCAL TITLE: [facility] C[facility] PRE-AUTH LETTER (AUTOPRINT) STANDARD TITLE: NONVA NOTE DATE OF NOTE: OCT 08, 2023@13:15 ENTRY DATE: OCT 08, 2023@13:15:50 AUTHOR: AISLINN JACOBSEN COSIGNER: URGENCY: STATUS: COMPLETED Sep FOZIA WARE [address] [place] [id number] Dear FOZIA WARE, Your VA provider has referred you to a provider within the community for care. Your medical care for Mental Health has been authorized with the community care provider listed below. DO NOT REPORT TO THE [place] [facility] Provider info: Care has been approved for the following vendor: Office name, address, and phone number: [facility] [employer] [address] [address] PH: [phone] Please contact the identified provider to schedule your community appointment. If you need assistance with this appointment, please call your facility community care office [facility] Office of Community Care at [phone] during the hours of 8:30AM - 3:00PM. Please follow up with your local [facility] community care office once this is scheduled. This step is needed to ensure your referral duration is maximized and the [place] has accurate referral information for billing purposes. Authorization Number: [id number] Referral Issue Date: Sep Expiration Date: Mar (subject to change based on first appointment) If you are unable to schedule this appointment or the appointment is no longer needed, please contact the community provider above for notification/rescheduling and then call the [facility] Office of Community Care at [phone] during the hours of 8:30AM - 3:00PM. If you need additional care/services not mentioned above or your authorization has and additional care is needed, please contact your primary care provider for a new referral. To review all care/service(s) approved under your referral, please go to the following link: [employer] [facility] [employer] Co-Payments: If you are required to pay a VA co-payment, you will be billed by the VA for each authorized visit that you attend. However, you are NOT REQUIRED to make co-payments to a community provider. Thank you for the opportunity to serve you. Sincerely, [place] Community Care ([facility]) /sarwat/ AISLINN JACOBSEN MSA Signed: 10/08/2023 13:16 AISLINN JACOBSEN [facility]
--- OUTSIDE RECORDS SUMMARY | 2024-01-02 23:06 | XMS_ITS | Encounter Summary ---
Author Name Department of Vetera Affairs [place] Organization [place] Address [address] [place] [address] Care Team Providers Care Semaphore Operator Name Role Phone KATELYN PATTON Primary Care Provider Unavailabl e Selected Encounter This section includes the information on record at [place] for the Encounter. Date/Time Encounter Type Encounter Description Reason Pro vider Source Dec 18, 2023 12:54 PM Outpatient Encounter PRIMARY CARE/MEDICINE IHE Encounter Template Text not used by [place] [...] 11:30 AM AMBULATORY - REHAB MEDICIN E [facility] Dec 25, 2023 12:30 PM [facility]ORY - [facility]ICINE [facility] Jan 02, 2024 01:30 PM AMBULATORY - REHAB MEDICIN E [facility] Jan 08, 2024 10:30 AM AMBULATORY - NONE [facility] Jan 11, 2024 05:00 PM AMBULATORY - REHAB MEDICIN E [facility] Jan 11, 2024 05:10 PM AMBULATORY - REHAB MEDICIN E [facility] Jan 16, 2024 10:00 AM AMBULATORY - REHAB MEDICIN E [facility] Jan 25, 2024 08:00 AM AMBULATORY - REHAB MEDICIN E [facility] Mar 24, 2024 11:45 AM AMBULATORY - NONE [facility] Active, Pending, and Scheduled Orders This section includes a listing of several types of active, pending, and scheduled orders, including clinic medications orders, diagnostic test orders, procedure orders and consult orders; where the start date of the order is 45 days before the date of the Encounter or 45 days after the date of theEncounter. The data comes from all [facility]. Test Date/Time Test Type Test Details Facility Name Dec 21, 2023 12:00 AM Laboratory - Chemi stry Order BASIC METABOLIC PANEL+MG [facility]AS[facility] ONCE [facility] Dec 21, 2023 12:00 AM Laboratory - Chemi stry Order AST/SGOT PLASMA [facility] SP [facility] Dec 25, 2023 01:17 PM Consult Order STROKE PETER AB OUTPT Cons Section [facility] Lab Results: +/- 30 days of the encounter This section includes the Chemistry and Hematology Lab Results on record with [place] for the patient. Radiology Reports and Pathology Reports are provided separately, in subsequent sections. Lab Results This section contains the Chemistry/Hematology Results that were resulted 30 days before or 30 daysafter the date of the Encounter. Date/Time Source Result Type Result - Unit Interpretation Reference Range Comment Dec 25, 2023 01:31 PM [facility] BASIC METABOLIC PANEL+MG Specimen Type: PLASMA No comment entered. Ordering Provider: KATELYN PATTON Report Released Date/Time: Dec 25, 2023 01:19 PM Reporting Lab: [facility] [id number] Performing Lab: [facility] [id number] CREATININE 1.3 mg/dL H 0.7-1.2 UREA NITROGEN 24 mg/dL 8-26 GLUCOSE 84 mg/dL 70-100 SODIUM 142 mmol/L 136-145 POTASSIUM 4.0 mmol/L 3.5-5.1 CHLORIDE 111 mmol/L H 98-107 CO2 25 mmol/L 22-29 CALCIUM 9.2 mg/dL 8.4-10.2 MAGNESIUM 2.1 mg/dL 1.6-2.6 ANION GAP 6 mmol/L 5-15 .CREAT EGFR(CKD-EPI) 63 >60 Social History: Smoking Status (Most current) and Tobacco Use (All prior to encounter date) This section includes the most current, and the historical, smoking and tobacco- related health factors from the [facility] where the Encounter took place. Current Smoking Status This section includes the most current smoking, or tobacco-related health factor, from the [place] facility where the Encounter took place. Date/Time Current Smoking Status Comment Michelle macario Feb 07, 2017 09:25 AM LIFETIME NON-TOBACCO USER [facility] Tobacco Use History This section includes a history of the smoking, or tobacco-related health factors, that were collected on or before the date of the Encounter. The data comes from the [facility] where the Encounter took place. Date/Time Smoking Status/Tobacco Use Comment F kasandra Aug 28, 2011 10:21 AM LIFETIME NON-TOBACCO USER [facility] Encounter Notes: All associated encounter notes This section contains the clinical notes associated to the Encounter. Date/Time Encounter Note(s) Provider Source Dec 18, 2023 03:29 PM ADDENDUM: LOCAL TITLE: Addendum STANDARD TITLE: ADDENDUM DATE OF NOTE: DEC 18, 2023@15:29:39 ENTRY DATE: DEC 18, 2023@15:29:41 AUTHOR: YULISA ARECHIGA COSIGNER: URGENCY: STATUS: COMPLETED From Saranya RAM 12/17/23 Assessment: 1) Diagnosis: Stroke Diagnosis List: Acute Ischemic stroke Acute R thalamic ischemic stroke NO IV TNK - beyond thrombolytic window NO LVO 2) Etiology: Small Vessel 3) Risk factor profile as reviewed with patient (and caregiver): High Blood Pressure 4) Pre-stroke Modified Jones: 0 5) Current Modified Jones: 2 Recommendations at discharge: Antithrombotic plan: - Start Asa 81mg daily indefinitely - Plavix 300mg today, followed by 75mg daily x 21-days and then stop Blood pressure: no permissive HTN, BP goal normotension <130/80 Extended outpatient cardiac monitoring: N/A Additional workup or follow up: none Intensive statin therapy recommendations: Intensive statin therapy recommendations LIST: No, there is no evidence of atherosclerosis. Start Lipitor 20mg daily, increase as needed, goal LDL <70 Rehabilitation interventions as indicated. Sleep Apnea: Exercise: Daily aerobic > 30 minutes as tolerated. Prevention strategies as above. Outpatient clinic follow up: Local neurologist We will sign off. Call with questions. Plan: will enter RTC for PCP hospital discharge follow up /sarwat/ YULISA ARECHIGA REGISTERED NURSE Signed: 12/19/2023 10:04 Receipt Acknowledged By: 12/19/2023 10:22 /sarwat/ [facility] --- Original Document --- 12/18/23 PATIENT CONTACT NOTE: Patient contact Name of : FOZIA WARE FABIOLA Name/Relationship of Contact if other than : Date & Time of Contact: Dec@12:54 Type of Contact: In person Reason for Contact: [place] stopped at desk to schedule a hospital follow up for Fozia. He is currently in the hospital but will be discharged today. [facility]sarwat/ OMAR OBRIEN Signed: 12/18/2023 12:55 Receipt Acknowledged By: 12/19/2023 10:07 /sarwat/ YULISA ARECHIGA REGISTERED NURSE YULISA ARECHIGA [facility] Dec 18, 2023 12:54 PM REPORT OF CONTACT: LOCAL TITLE: PATIENT CONTACT NOTE STANDARD TITLE: REPORT OF CONTACT DATE OF NOTE: DEC 18, 2023@12:54 ENTRY DATE: DEC 18, 2023@12:54:16 AUTHOR: OMAR NEGRON EXP COSIGNER: URGENCY: STATUS: COMPLETED PATIENT CONTACT NOTE Has ADDENDA Patient contact Name of : FOZIA WARE FABIOLA Name/Relationship of Contact if other than [place]: Date & Time of Contact: Dec@12:54 Type of Contact: In person Reason for Contact: [place] stopped at desk to schedule a hospital follow up for Fozia. He is currently in the hospital but will be discharged today. Please advise on scheduling with [facility] /sarwat/ OMAR OBRIEN Signed: 12/18/2023 12:55 Receipt Acknowledged By: 12/19/2023 10:07 /sarwat/ YULISA ARECHIGA REGISTERED NURSE 12/18/2023 ADDENDUM STATUS: COMPLETED From Saranya RAM 12/17/23 Assessment: 1) Diagnosis: Stroke Diagnosis List: Acute Ischemic stroke Acute R thalamic ischemic stroke NO IV TNK - beyond thrombolytic window NO LVO 2) Etiology: Small Vessel 3) Risk factor profile as reviewed with patient (and caregiver): High Blood Pressure 4) Pre-stroke Modified Jones: 0 5) Current Modified Jones: 2 Recommendations at discharge: Antithrombotic plan: - Start Asa 81mg daily indefinitely - Plavix 300mg today, followed by 75mg daily x 21-days and then stop Blood pressure: no permissive HTN, BP goal normotension <130/80 Extended outpatient cardiac monitoring: N/A Additional workup or follow up: none Intensive statin therapy recommendations: Intensive statin therapy recommendations LIST: No, there is no evidence of atherosclerosis. Start Lipitor 20mg daily, increase as needed, goal LDL <70 Rehabilitation interventions as indicated. Sleep Apnea: Exercise: Daily aerobic > 30 minutes as tolerated. Prevention strategies as above. Outpatient clinic follow up: Local neurologist We will sign off. Call with questions. Plan: will enter RTC for PCP hospital discharge follow up /sarwat/ YULISA ARECHIGA REGISTERED NURSE Signed: 12/19/2023 10:04 Receipt Acknowledged By: * AWAITING SIGNATURE * [facility]
--- OUTSIDE RECORDS SUMMARY | 2024-01-02 23:06 | XMS_ITS | Encounter Summary ---
Author Name Department of [place] Organization [place] Address [address] [place] [id number] Care Team Providers Care Horologist Apprentice Name Role Phone KATELYN PATTON Primary Care Provider Unavailabl e Selected Encounter This section includes the information on record at [place] for the Encounter. Date/Time Encounter Type Encounter Description Reason Provider Source June 27, 2023 04:46 PM Outpatient Encounter HEMATOLOGY ICD-10-CM C76.0 Malignant neoplasm of head, face and neck [facility] Encounter Template Text not used by [place] Assessments - Encounter Diagnoses This section includes the primary and secondary diagnoses documented for the Encounter. Date/Time Primary/Secondary Diagnosis Diagnosis Name Provider Source June 27, 2023 05:27 PM PRIMARY Malignant neoplasm of head, face and neck [facility] Plan of Treatment: Future Appointments (+ 6 months) and Future Tests (+/- 45 days) The Plan of Treatment section includes future care activities for the patient from all [place] treatmentfacilities. This section includes future appointments and future orders which are active, pending or scheduled. Future Appointments This section includes appointments that were scheduled to occur 6 months from the date of the Encounter, up to a maximum of 20 appointments. The data comes from all [place] treatment facilities. Appointment Date/Time Appointment Type Appointme nt Facility Name Jul 24, 2023 08:30 AM [facility] Aug 15, 2023 09:00 AM [facility] - [facility] [place] [facility] Sep 03, 2023 09:00 AM [facility] Oct 01, 2023 02:30 PM [facility] Oct 01, 2023 03:00 PM AMBULATORY - REHAB MEDICIN [facility] Oct 26, 2023 05:30 PM AMBULATORY - RE[facility] MEDIC[facility] Nov 26, 2023 02:00 PM [facility] Nov 28, 2023 10:30 AM AMBULATORY - REHAB MEDICIN [facility] Dec 17, 2023 10:38 AM [facility] Dec 21, 2023 11:30 AM AMBULATORY - REHAB MEDICIN E [facility] Dec 25, 2023 12:30 PM [facility]ATORY - [facility]ICINE [facility] Active, Pending, and Scheduled Orders This section includes a listing of several types of active, pending, and scheduled orders, including clinic medications orders, diagnostic test orders, procedure orders and consult orders; where the start date of the order is 45 days before the date of the Encounter or 45 days after the date of the Encounter. The data comes from all [facility]. Test Date/Time Test Type Test Details Facility Name June 27, 2023 12:00 AM Laboratory - Chemi stry Order OCCULT BLOOD FIT X1 SCREEN STOOL FECES SP ONCE [facility] Lab Results: +/- 30 days of the encounter This section includes the Chemistry and Hematology Lab Results on record with [place] for the patient. Radiology Reports and Pathology Reports are provided separately, in subsequent sections. Lab Results This section contains the Chemistry/Hematology Results that were resulted 30 days before or 30 daysafter the date of the Encounter. Date/Time Source Result Type Result - Unit Interpretation Reference Range Comment June 27, 2023 11:54 AM [facility] THYROID STIMULATING IMMUNOGLOBULIN Specimen Type: SERUM [...] of this assay have been determined by [facility] [place], [place]. The modifications have not been cleared or approved by the FDA. This assay has been validated pursuant to the CLIA regulations and is used for clinical purposes. Test Performed by [facility], [facility], [address] [place] [address] Michael Jimenez M.D., Ph.D., Director of Laboratories , CLIA [id number] Ordering Provider: KATELYN PATTON Report Released Date/Time: June 27, 2023 11:49 AM Reporting Lab: [facility] [phone] Performing Lab: [address] THYROID STIMULATING IMMUNOGLOBULIN <89 SEE BELOW June 27, 2023 11:54 AM [facility] TOTAL T3 Specimen Type: SERUM No comment entered. Ordering Provider: KATELYN PATTON Report Released Date/Time: June 27, 2023 11:49 AM Reporting Lab: [facility] [phone] Performing Lab: [facility] [phone] TOTAL T3 79 ng/dL 35-193 June 27, 2023 11:02 AM [facility] PSA Specimen Type: SERUM No comment entered. Ordering Provider: KATELYN PATTON Report Released Date/Time: June 27, 2023 10:36 AM Reporting Lab: [facility] [id number] Performing Lab: [facility] [id number] PSA 2.07 ng/mL <4.00 June 27, 2023 11:02 AM [facility] HEMOGLOBIN A1C Specimen Type: BLOOD Comment: [...] June 27, 2023 10:36 AM Reporting Lab: [facility] [id number] Performing Lab: [facility] [id number] HEMOGLOBIN A1C 5.2 4.0-6.0 June 27, 2023 11:02 AM [facility] COMPREHENSIVE METABOLIC PANEL+MG Specimen Type: PLASMA No comment entered. Ordering Provider: KATELYN PATTON Report Released Date/Time: June 27, 2023 10:36 AM Reporting Lab: [facility] [id number] Performing Lab: [facility] [phone] CREATININE 1.4 mg/dL H 0.7-1.2 UREA NITROGEN [...] L >60 June 27, 2023 11:02 AM [facility] LIPID PANEL,NON-FASTING Specimen Type: PLASMA No comment entered. Ordering Provider: KATELYN PATTON Report Released Date/Time: June 27, 2023 10:36 AM Reporting Lab: [facility] [id number] Performing Lab: [facility] [phone] CHOLESTEROL 169 mg/dL <199 .HDL 57 mg/dL >40 LDL CALCULATION 102 mg/dL H <99 VLDL CALCULATION 10 mg/dL <29 NON HDL CHOLESTEROL 112 mg/dL <129 TRIG(NON FASTING) 50 mg/dL <149 June 27, 2023 11:02 AM [facility] TSH W/REFLEX TO FREE T4 Specimen Type: PLASMA No comment entered. Ordering Provider: KATELYN PATTON Report Released Date/Time: June 27, 2023 10:36 AM Reporting Lab: [facility] [id number] Performing Lab: [facility] [phone] TSH 0.95 u[IU]/mL 0.35-4.94 FREE T4 1.11 ng/dL 0.70-1.48 June 27, 2023 11:02 AM [facility] CBC Specimen Type: BLOOD No comment entered. Ordering Provider: KATELYN PATTON Report Released Date/Time: June 27, 2023 10:36 AM Reporting Lab: [facility] [phone] Performing Lab: [facility] [phone] WBC 5.24 10*3/uL 4.0-11.0 RBC 4.76 10*6/uL 4.6-6.2 HGB 14.6 g/dL 13.5-17.9 HCT 43.7 41-54 MCV 91.8 fL 80-100 MCH 30.7 pg 27-33 MCHC 33.4 g/dL 32.0-37.5 PLT 233 10*3/uL 150-400 MPV 10.6 fL H 7.4-10.4 RDW 12.5 11.5-14.5 June 27, 2023 11:02 AM [facility] FREE-T4 Specimen Type: PLASMA No comment entered. Ordering Provider: KATELYN PATTON Report Released Date/Time: June 27, 2023 10:36 AM Reporting Lab: [facility] [id number] Performing Lab: [facility] [phone] FREE T4 1.11 ng/dL 0.70-1.48 Social History: Smoking Status (Most current) and Tobacco Use (All prior to encounter date) This section includes the most current, and the historical, smoking and tobacco- related health factors from the [place] facility where the Encounter took place. Current Smoking Status This section includes the most current smoking, or tobacco-related health factor, from the [facility] where the Encounter took place. Date/Time Current Smoking Status Comment Michelle ity Feb 07, 2017 09:25 AM LIFETIME NON-TOBACCO USER [facility] Tobacco Use History This section includes a history of the smoking, or tobacco-related health factors, that were collected on or before the date of the Encounter. The data comes from the [facility] where the Encounter took place. Date/Time Smoking Status/Tobacco Use Comment F acility Aug 28, 2011 10:21 AM LIFETIME NON-TOBACCO USER [facility] Encounter Notes: All associated encounter notes This section contains the clinical notes associated to the Encounter. Date/Time Encounter Note(s) Provider Source June 27, 2023 05:02 PM HEMATOLOGY AND ONC OLOGY CONSULT: LOCAL TITLE: HEM/ONC/COAG CONSULT STANDARD TITLE: HEMATOLOGY AND ONCOLOGY CONSULT DATE OF NOTE: JUNE 27, 2023@17:02 ENTRY DATE: JUNE 27, 2023@17:02:21 AUTHOR: SHAWNEE GNO EXP COSIGNER: URGENCY: STATUS: COMPLETED E-consult 06/27/23 [...] has been following with Hem/Onc at the [facility] ER annually and was last seen 03/09/21. CT [...] of this consult /es/ ALLAN WALLER PHYSICIAN MANPOWER DEVELOPMENT SPECIALIST Signed: 06/27/2023 17:27 [facility]
--- OUTSIDE RECORDS SUMMARY | 2024-01-02 23:06 | XMS_ITS | Encounter Summary ---
Author Name [facility] [place] Organization [facility] [place] Address [address] [place] [address] Care Team Providers Care Hydro Pneumatic Tester Name Role Phone KATELYN PATTON Primary Care Provider Unavailabl e Selected Encounter This section includes the information on record at [place] for the Encounter. Date/Time Encounter Type Encounter Description Reason Provider Source Oct 01, 2023 03:00 PM ORAL FUNCTION THERAPY SPEECH-LANGUAGE PATHOLOGY ICD-10-CM C76.0 Malignant neoplasm of head, face and neck JUMA LACEY [facility] Encounter Template Text not used by [place] Assessments - Encounter Diagnoses This section includes the primary and secondary diagnoses documented for the Encounter. Date/Time Primary/Secondary Diagnosis Diagnosis Name Provider Source Oct 04, 2023 02:53 PM PRIMARY Malignant neoplasm of head, face and neck GIANNI LACEY [facility] Oct 04, 2023 02:53 PM SECONDARY Dysphagia, oropharyngeal phase GIANNI LACEY [facility] Plan of Treatment: Future Appointments (+ 6 months) and Future Tests (+/- 45 days) The Plan of Treatment section includes future care activities for the patient from all [place] treatmentfacilities. This section includes future appointments and [...] 05:30 PM AMBULATORY - REHAB MEDICIN E [facility] Nov 26, 2023 02:00 PM AMBULATORY - NONE [facility] Nov 28, 2023 10:30 AM AMBULATORY - REHAB MEDICIN E [facility] Dec 17, 2023 10:38 AM [facility]ORY [facility] NONE [facility] Dec 21, 2023 11:30 AM AMBULATORY - REHAB MEDICIN E [facility] Dec 25, 2023 12:30 PM [facility]ATORY - MEDICINE [facility] Jan 02, 2024 01:30 PM AMBULATORY - REHAB MEDICIN E [facility] Jan 08, 2024 10:30 AM AMBULATORY - NONE [facility] Jan 11, 2024 05:00 PM AMBULATORY - REHAB MEDICIN E [facility] Jan 11, 2024 05:10 PM AMBULATORY - REHAB MEDICIN E [facility] Jan 16, 2024 10:00 AM AMBULATORY - REHAB MEDICIN E [facility] Jan 25, 2024 08:00 AM AMBULATORY - REHAB MEDICIN E [facility] Mar 24, 2024 11:45 AM AMBULATORY - NONE [facility] Active, Pending, and Scheduled Orders This section includes a listing of several types of active, pending, and scheduled orders, including clinic medications orders, diagnostic test orders, procedure orders and consult orders; where the start date of the order is 45 days before the date of the Encounter or 45 days after the date of theEncounter. The data comes from all [facility]. Test Date/Time Test Type Test Details Facility Name Oct 01, 2023 08:04 PM Consult Order COMMUNITY CARE-MENTAL HEALTH Cons Glove Turner And Former Automatic's Choice [facility] Social History: Smoking Status (Most current) and Tobacco Use (All prior to encounter date) This section includes the most current, and the historical, smoking and tobacco- related health factors from the [place] facility where the Encounter took place. Current Smoking Status This section includes the most current smoking, or tobacco-related health factor, from the [place] facility where the Encounter took place. Date/Time Current Smoking Status Comment Michelle macario Feb 07, 2017 09:25 AM LIFETIME NON-TOBACCO USER [facility] Tobacco Use History This section includes a history of the smoking, or tobacco-related health factors, that were collected on or before the date of the Encounter. The data comes from the [place] facility where the Encounter took place. Date/Time Smoking Status/Tobacco Use Comment F acility Aug 28, 2011 10:21 AM LIFETIME NON-TOBACCO USER [facility] Radiology Reports: +/- 30 days of [...] the Encounter. The data comes from all [place] treatment facilities. Date/Time Radiology Report Provider Source Oct 01, 2023 02:25 PM ESOPHAGRAM VIDEO S SILVIA: FOZIA WARE [id number] -[id number] M Ex Date: OCT 01, 2023@14:25 Req Phys: KRISSY MOSLEY Loc: [facility] ENT HEAD & NECK GLORIA (R Img Loc: MAIN X-RAY Service: Unknown (Case [id number] COMPLETE) ESOPHAGRAM VIDEO SWALLOW (RAD Detailed) CPT:65444 Contrast Media : Barium CPT Modifiers : TC TECHNICAL COMPONENT Reason for Study: Dysphagia secondary to TRIMMER HAND Clinical History: [place] IS NOT under investigation for COVID-19 or [...] pager listed below: User placing orders pager: [phone] Staff: Dr. Sammie Topete LAST CREATININE 1.4 [...] of findings. VERIFIED BY: / *ELECTRONICALLY FILED* [facility] Encounter Notes: All associated encounter notes [...] therapy/education: 30 min. 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 Imaging at that time revealed a mass including the left BOT, left tonsillar pillar, and left retrotigone area extending superiorly into the nasopharynx. He was referred to speech pathology d/t complains of worsening dysphagia over the last year. reports he chokes every meal and feels food getting stuck in his throat. [place] shared an extended coughing fit while on a cruise 6 months ago was the catalyst to ask for an evaluation. seen by ENT on 08/16/23 which noted evaluation negative for evidence of recurrence. 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 [place] seen immediately following for dysphagia intervention and [...] INTERDISCIPLINARY CARE: Following the completion of exam LANDSCAPE CONTRACTOR notified MD/RN/RD via text/page/phone call of the [...] Please don't hesitate to contact me at [phone] with any questions. Thank you for involving LANDSCAPE CONTRACTOR in this patient's care. /sarwat/ LILIA LACEY MA, [facility]-LANDSCAPE CONTRACTOR SPEECH LANGUAGE PATHOLOGIST Signed: 10/11/2023 13:33 LILIA LACEY [facility]
--- OUTSIDE RECORDS SUMMARY | 2024-01-02 23:06 | XMS_ITS | Encounter Summary ---
Author Name [facility] [place] Organization [place] Address [address] [place] [address] Care Team Providers Care Naval Aircrewman Tactical Helicopter Name Role Phone KATELYN PATTON Primary Care Provider Unavailabl e Selected Encounter This section includes the information on record at [place] for the Encounter. Date/Time Encounter Type Encounter Description Reason Pro vider Source [facility] Encounter Template Text not used by [place]
--- OUTSIDE RECORDS SUMMARY | 2024-01-02 23:06 | XMS_ITS | Encounter Summary ---
Author Name [facility] [place] Organization [place] Address [address] [place] [address] Care Team Providers Care Director Search Marketing Strategies Name Role Phone KATELYN PATTON Primary Care Provider Unavailabl e Selected Encounter This section includes the information on record at [place] for the Encounter. Date/Time Encounter Type Encounter Description Reason Provider Source Dec 17, 2023 10:38 AM Outpatient Encounter ADMIN PAT ACTIVTIES (MASNONCT) LUNA VENTURA Encounter Template Text not used by [place] Plan of Treatment: Future Appointments (+ 6 [...] AM AMBULATORY - REHAB MEDICIN E [facility] Dec 25, 2023 12:30 PM AMBULATORY - MEDICINE [facility] Jan 02, 2024 01:30 PM AMBULATORY - REHAB MEDICIN E [facility] Jan 08, 2024 10:30 AM AMBULATORY - NONE [facility] Jan 11, 2024 05:00 PM AMBULATORY - REHAB MEDICIN E [facility] Jan 11, 2024 05:10 PM AMBULATORY - REHAB MEDICIN E [facility] Jan 16, 2024 10:00 AM AMBULATORY - REHAB MEDICIN E [facility] Jan 25, 2024 08:00 AM AMBULATORY - REHAB MEDICIN E [facility] Mar 24, 2024 11:45 AM AMBULATORY - NONE [facility] Active, Pending, and Scheduled Orders This section includes a listing of several types of active, pending, and scheduled orders, including clinic medications orders, diagnostic test orders, procedure orders and consult orders; where the start date of the order is 45 days before the date of the Encounter or 45 days after the date of theEncounter. The data comes from all [facility] facilities. Test Date/Time Test Type Test Details Facility Name Dec 21, 2023 12:00 AM Laboratory - Chemi stry Order BASIC METABOLIC PANEL+MG PLASMA [facility] SP ONCE [facility] Dec 21, 2023 12:00 AM Laboratory - Chemi stry Order AST/SGOT [facility]AS[facility] SP [facility] Dec 25, 2023 01:17 PM Consult Order STROKE PETER AB OUTPT Cons Broad[facility] Choice [facility] Lab Results: +/- 30 days of [...] Range Comment Dec 25, 2023 01:31 PM [facility] BASIC METABOLIC PANEL+MG Specimen Type: PLASMA No comment entered. Ordering Provider: KATELYN PATTON Report Released Date/Time: Dec 25, 2023 01:19 PM Reporting Lab: [facility] [id number] Performing Lab: [facility] [id number] CREATININE 1.3 mg/dL H 0.7-1.2 UREA NITROGEN [...] and tobacco- related health factors from the [place] facility where the Encounter took place. Current Smoking Status This section includes the most current smoking, or tobacco-related health factor, from the [place] facility where the Encounter took place. Date/Time Current Smoking Status Comment Facil ity Feb 07, 2017 09:25 AM LIFETIME NON-TOBACCO USER [facility] Tobacco Use History This section includes a history of the smoking, or tobacco-related health factors, that were collected on or before the date of the Encounter. The data comes from the [facility] where the Encounter took place. Date/Time Smoking Status/Tobacco Use Comment F acility Aug 28, 2011 10:21 AM LIFETIME NON-TOBACCO USER [facility] Encounter Notes: All associated encounter notes This section contains the clinical notes associated to the Encounter. Date/Time Encounter Note(s) Provider Source Dec 20, 2023 03:04 PM ADDENDUM: LOCAL TITLE: Addendum STANDARD TITLE: ADDENDUM DATE OF NOTE: DEC 20, 2023@15:04:19 ENTRY DATE: DEC 20, 2023@15:04:20 AUTHOR: LUNA VENTURA EXP COSIGNER: URGENCY: STATUS: COMPLETED Clinical Care Coordination Information Hospital Discharge note Medical records received: Fax Hospital: [facility] Admit date: 12/17/2023 Discharge date: 12/19/2023 Discharge diagnosis: Acute ischemic stroke Disposition: Home Follow up:Please review records for any needed follow up. Recommended: Follow up with Primary care provider and Neurology Medical records have been uploaded to the patient's chart and are available for viewing in [employer]. /sarwat/ Luna Ventura ANALYTICAL SCIENTIST engineering professionals Net Mvc Developer Signed: 12/20/2023 15:08 Receipt Acknowledged By: 12/21/2023 15:11 /sarwat/ YULISA ARECHIGA REGISTERED NURSE 12/20/2023 15:45 /sarwat/ KATELYN PATTON DNP,COMPLEX CARE NURSE,ARDMS --- Original Document --- 12/16/23 [facility] SELF PRESENTING CARE COORD PLAN NOTE: Emergency Notification Intake Date Presenting to the Facility: Dec Method of Contact: Notified from Subbl[employer] worklist Notification ID: [id number] [facility] Referral #: [facility] Name: Hospital: [facility] Address: City: [place] State: [place] Zip Code: Phone : [facility] Point of Contact: Name: Phone: Chief complaint: STROKE Primary Diagnosis: Disposition Unknown at time of intake note entry /sarwat/ DARELL SINGH HEALTH CUSTOMER ORDER CLERK Signed: 12/17/2023 10:40 Receipt Acknowledged By: 12/18/2023 08:09 /sarwat/ Luna Ventura ANALYTICAL SCIENTIST engineering professionals Net Mvc Developer 12/18/2023 ADDENDUM STATUS: COMPLETED Notification acknowledged by RN. Medical and clinical information not reviewed. /sarwat/ Luna Ventura ANALYTICAL SCIENTIST engineering professionals Net Mvc Developer Signed: 12/18/2023 08:09 12/16/2023 ADDENDUM STATUS: COMPLETED [facility] Scanned Document - Addendum. ED records 12/16/2023 [facility] SCANNED DOCUMENT SIGNATURE NOT REQUIRED Electronically Filed: 12/19/2023 by: TANIA BlackwoodAdvanced Glove Maker 12/19/2023 ADDENDUM STATUS: COMPLETED ED Records uploaded via Epsi for review. HP/DC Records requested and will be uploaded via Epsi when received. /sarwat/ TANIA BlackwoodAdvanced Glove Maker Signed: 12/19/2023 10:16 Receipt Acknowledged By: 12/19/2023 14:12 /es/ YULISA ARECHIGA REGISTERED NURSE 12/19/2023 ADDENDUM STATUS: COMPLETED Admitted to: [facility] Level of care: Acute care observation Admission date: 12/16/2023 Chief Complaint/Dx: Patient was admitted to observation after presenting to the ED with sudden onset of Left leg numbness and weakness associated with Left arm tingling. Left sided neurological complaints - Head CT without evidence of bleed - MRI pending. Transfer status: Although appears medically stable for transfer via chart review, neither the patient, nor the patient's bilingual inside sales representative have requested transfer to the [facility], nor are there any beds available at the [facility] for the level of care required. Medical records have been uploaded to the patient's chart and are available for viewing in [facility]. This Transitions Team RN will follow [place] during this hospitalization. DC summary will be uploaded into the [facility] medical record when available. /sarwat/ Luna Ventura, ANALYTICAL SCIENTIST engineering professionals Net Mvc Developer Signed: 12/19/2023 14:42 12/16/2023 ADDENDUM STATUS: COMPLETED [facility] Scanned Document - Addendum. ED, HP and DC records 12/16/2023 - 12/18/2023 [facility] SCANNED DOCUMENT SIGNATURE NOT REQUIRED Electronically Filed: 12/20/2023 by: TANIA BlackwoodAdvanced Glove Maker 12/20/2023 ADDENDUM STATUS: COMPLETED Records including DC summary uploaded via Epsi for review /sarwat/ TANIA BlackwoodAdvanced Glove Maker Signed: 12/20/2023 08:[address] [facility] Dec 19, 2023 10:15 AM ADDENDUM: LOCAL TITLE: Addendum STANDARD TITLE: ADDENDUM DATE OF NOTE: DEC 19, 2023@10:15:36 ENTRY DATE: DEC 19, 2023@10:15:37 AUTHOR: TANIA MENJIVAR EXP COSIGNER: URGENCY: STATUS: COMPLETED ED Records uploaded via Epsi for review. HP/DC Records requested and will be uploaded via Epsi when received. /sarwat/ TANIA BlackwoodAdvanced Glove Maker Signed: 12/19/2023 10:16 Receipt Acknowledged By: 12/19/2023 14:12 /sarwat/ YULISA ARECHIGA REGISTERED NURSE --- Original Document --- 12/16/23 [facility] PRESENTING CARE COORD PLAN NOTE: Emergency Notification Intake Date Presenting to the Facility: Dec Method of Contact: Notified from Subblime worklist Notification ID: [id number] [facility] Referral #: [facility] Name: Hospital: [facility] Address: City: [place] State: [place] Zip Code: Phone : [facility] Point of Contact: Name: Phone: Chief complaint: STROKE Primary Diagnosis: Disposition Unknown at time of intake note entry /sarwat/ DARELL SINGH HEALTH CUSTOMER ORDER CLERK Signed: 12/17/2023 10:40 Receipt Acknowledged By: 12/18/2023 08:09 /sarwat/ Luna Ventura ANALYTICAL SCIENTIST engineering professionals Net Mvc Developer 12/18/2023 ADDENDUM STATUS: COMPLETED Notification acknowledged by RN. Medical and clinical information not reviewed. /karen Ventura ANALYTICAL SCIENTIST engineering professionals Net Mvc Developer Signed: 12/18/2023 08:09 12/16/2023 ADDENDUM STATUS: COMPLETED [facility] Scanned Document - Addendum. ED records 12/16/2023 [facility] SCANNED DOCUMENT SIGNATURE NOT REQUIRED Electronically Filed: 12/19/2023 by: TANIA MENJIVAR ...Advanced Glove Maker TANIA MENJIVAR [facility] Dec 16, 2023 10:38 AM NONVA NOTE: LOCAL TITLE: COMMUNITY CARE-[facility]EL[facility] SELF PRESENTING CARE COORD PLAN STANDARD TITLE: NONVA NOTE DATE OF NOTE: DEC 16, 2023@10:38 ENTRY DATE: DEC 17, 2023@10:39:05 AUTHOR: DARELL SINGH EXP COSIGNER: URGENCY: STATUS: COMPLETED [facility] SELF PRESENTING CARE COORD PLAN NOTE Has ADDENDA Emergency Notification Intake Date Presenting to the Facility: Dec Method of Contact: Notified from Subblime worklist Notification ID: [id number] [facility] Referral #: [facility] Name: Hospital: [facility] Address: City: [place] State: [place] Zip Code: Phone : [facility] Point of Contact: Name: Phone: Chief complaint: STROKE Primary Diagnosis: Disposition Unknown at time of intake note entry /karen SINGH HEALTH CUSTOMER ORDER CLERK Signed: 12/17/2023 10:40 Receipt Acknowledged By: 12/18/2023 08:09 /sarwat/ Luna Ventura ANALYTICAL SCIENTIST engineering professionals Net Mvc Developer 12/18/2023 ADDENDUM STATUS: COMPLETED Notification acknowledged by RN. Medical and clinical information not reviewed. /sarwat/ Luna Ventura RN BSN engineering professionals Net Mvc Developer Signed: 12/18/2023 08:09 12/16/2023 ADDENDUM STATUS: COMPLETED [facility] Scanned Document - Addendum. ED records 12/16/2023 [facility] SCANNED DOCUMENT SIGNATURE NOT REQUIRED Electronically Filed: 12/19/2023 by: TANIA MENJIVAR ...Advanced Glove Maker 12/19/2023 ADDENDUM STATUS: COMPLETED ED Records uploaded via [employer] for review. HP/DC Records requested and will be uploaded via Epsi when received. /sarwat/ TANIA MENJIVAR ..IsiahAdvanced Glove Maker Signed: 12/19/2023 10:16 Receipt Acknowledged By: 12/19/2023 14:12 /es/ YULISA ARECHIGA REGISTERED NURSE 12/19/2023 ADDENDUM STATUS: COMPLETED Admitted to: [facility] Level of care: Acute care observation Admission date: 12/16/2023 Chief Complaint/Dx: Patient was admitted to observation after presenting to the ED with sudden onset of Left leg numbness and weakness associated with Left arm tingling. Left sided neurological complaints - Head CT without evidence of bleed - MRI pending. Transfer status: Although appears medically stable for transfer via chart review, neither the patient, nor the patient's bilingual inside sales representative have requested transfer to the [facility], nor are there any beds available at the [facility] for the level of care required. Medical records have been uploaded to the patient's chart and are available for viewing in [facility]. This Transitions Team RN will follow [place] during this hospitalization. DC summary will be [facility] into the [facility] record when available. /MARC MobleyN engineering professionals Net Mvc Developer Signed: 12/19/2023 14:42 12/16/2023 ADDENDUM STATUS: COMPLETED [facility] Scanned Document - Addendum. ED, HP and DC records 12/16/2023 - 12/18/2023 [facility] SCANNED DOCUMENT SIGNATURE NOT REQUIRED Electronically Filed: 12/20/2023 by: TANIA BlackwoodAdvanced Glove Maker 12/20/2023 ADDENDUM STATUS: COMPLETED Records including DC summary uploaded via [employer] for review /sarwat/ TANIA BlackwoodAdvanced Glove Maker Signed: 12/20/2023 08:22 12/20/2023 ADDENDUM STATUS: COMPLETED Clinical Care Coordination Information Hospital Discharge note Medical records received: Fax Hospital: [facility] Admit date: 12/17/2023 Discharge date: 12/19/2023 Discharge diagnosis: Acute ischemic stroke Disposition: Home Follow up:Please review records for any needed follow up. Recommended: Follow up with Primary care provider and Neurology Medical records have been uploaded to the patient's chart and are available for viewing in [facility]. /sarwat/ Luna Ventura ANALYTICAL SCIENTIST engineering professionals Net Mvc Developer Signed: 12/20/2023 15:08 Receipt Acknowledged By: * AWAITING SIGNATURE * YULISA ARECHIGA * AWAITING SIGNATURE * KATELYN PATTON [facility]
--- OUTSIDE RECORDS SUMMARY | 2024-01-02 23:06 | XMS_ITS | Encounter Summary ---
Author Name [facility] [place] Organization [facility] [place] Address [address] [place] [id number] Care Team Providers Care Stationary Equipment Mechanic Name Role Phone KATELYN PATTON Primary Care Provider Unavailabl e Selected Encounter This section includes the information on record at [place] for the Encounter. Date/Time Encounter Type Encounter Description Reason Provider Source Dec 21, 2023 11:30 AM THERAPEUTIC EXERCISES PHYSICAL THERAPY ICD-10-CM M25.512 Pain in left shoulder NANDINI KEARNS RA [facility] Encounter Template Text not used by [place] Assessments - Encounter Diagnoses This section includes the primary and secondary diagnoses documented for the Encounter. Date/Time Primary/Secondary Diagnosis Diagnosis Name Provider Source Dec 21, 2023 12:09 PM PRIMARY Pain in left shoulder NANDINI KEARNS RA [facility] Dec 21, 2023 12:09 PM SECONDARY Muscle weakness (generalized) NANDINI KEARNS RA [facility] Plan of Treatment: Future Appointments (+ 6 months) and Future Tests (+/- 45 days) The Plan of Treatment section includes future care activities for the patient from all [place] treatmentfacilities. This section includes future appointments and future orders which are active, pending or scheduled. Future Appointments This section includes appointments that were scheduled to occur 6 months from the date of the Encounter, up to a maximum of 20 appointments. The data comes from all [place] treatment facilities. Appointment Date/Time Appointment Type Appointme nt Facility Name Dec 25, 2023 12:30 PM AMBULATORY - MEDICINE [facility] Jan 02, 2024 01:30 PM AMBULATORY - REHAB MEDICIN E [facility] Jan 08, 2024 10:30 AM AMBULATORY - NONE [facility] Jan 11, 2024 05:00 PM AMBULATORY - REHAB MEDICIN E [facility] Jan 11, 2024 05:10 PM AMBULATORY - REHAB MED[facility]IN [facility] Jan 16, 2024 10:00 AM AMBULATORY - REHAB MEDICIN [facility] Jan 25, 2024 08:00 AM AMBULATORY - REHAB MEDICIN E [facility] Mar 24, 2024 11:45 AM AMBULATORY - NONE [facility] Active, Pending, and Scheduled Orders This section includes a listing of several types of active, pending, and scheduled orders, including clinic medications orders, diagnostic test orders, procedure orders and consult orders; where the start date of the order is 45 days before the date of the Encounter or 45 days after the date of theEncounter. The data comes from all [facility]. Test Date/Time Test Type Test Details Facility Name Dec 21, 2023 12:00 AM Laboratory - Chemi stry Order BASIC METABOLIC PANEL+MG PLASMA [facility] SP ONCE [facility] Dec 21, 2023 12:00 AM Laboratory - Chemi stry Order AST/SGOT PLASMA [facility] SP [facility] Dec 25, 2023 01:17 PM Consult Order STROKE PETER AB OUTPT Cons Fuel Cell Technician's Choice [facility] Lab Results: +/- 30 days of the encounter This section includes the Chemistry and Hematology Lab Results on record with [place] for the patient. Radiology Reports and Pathology Reports are provided separately, in subsequent sections. Lab Results This section contains the Chemistry/Hematology Results that were resulted 30 days before or 30 daysafter the date of the Encounter. Date/Time Source Result Type Result - Unit Interpretation Reference Range Comment Dec 25, 2023 01:31 PM [facility] BASIC METABOLIC PANEL+MG Specimen Type: PLASMA No comment entered. Ordering Provider: KATELYN PATTON Report Released Date/Time: Dec 25, 2023 01:19 PM Reporting Lab: [facility] [id number] Performing Lab: [facility] [id number] CREATININE 1.3 mg/dL H 0.7-1.2 UREA NITROGEN [...] and tobacco- related health factors from the [place] facility where the Encounter took place. Current Smoking Status This section includes the most current smoking, or tobacco-related health factor, from the [facility] where the Encounter took place. Date/Time Current Smoking Status Comment Michelle macario Feb 07, 2017 09:25 AM LIFETIME NON-TOBACCO USER [facility] Tobacco Use History This section includes a history of the smoking, or tobacco-related health factors, that were collected on or before the date of the Encounter. The data comes from the [facility] where the Encounter took place. Date/Time Smoking Status/Tobacco Use Comment F acility Aug 28, 2011 10:21 AM LIFETIME NON-TOBACCO USER [facility] Encounter Notes: All associated encounter notes This section contains the clinical notes associated to the Encounter. Date/Time Encounter Note(s) Provider Source Dec 21, 2023 07:19 AM PHYSICAL THERAPY N OTE: LOCAL TITLE: PT-PROGRESS NOTE STANDARD TITLE: PHYSICAL THERAPY NOTE DATE OF NOTE: DEC 21, 2023@07:19 ENTRY DATE: DEC 21, 2023@07:19:52 AUTHOR: ADRI KEARNS EXP COSIGNER: URGENCY: STATUS: COMPLETED PT tx: Therapeutic Exercise x28' PT dx: Left Shoulder Pain, Left Leg weakness Evaluation Date: Nov # of VISITS: 2 # of CX/NS: 0 [place] Screen Due: NO Informed verbal consent received for physical therapy evaluation and treatment. DAILY SUBJECTIVE: He states he had a stroke on Sunday. It wasn't anything very serious, as he's still walking and talking. But some deficit on the left. The left leg has some deficit, but his arm has some transient issues. He lives with his ex-, she is also a chili maker. He stumbled a little bit, and she started questioning him and told him to go to ER. CT was initially negative, but the next day the MRI showed the stroke. The shoulder has been okay. He will be plavix for 21 days, and aspirin and a statin indefinitely. He was given exercises from a PT while in the hospital: sit to stands with weight on left side, and balance exercises. Chief Concern: Pt is a 63 year old [place] who presents to PT for left shoulder pain. Pain: Location/Description: left lateral shoulder, deep in the joint Intensity: did not rate Patient's Goal: see goal section below OBJECTIVE: STRENGTH: -Hip flexion [L2-L3]: ---Right: 5/5 ---Left: 4+/5 -Knee Extension [L3-L4]: ---Right: 5/5 ---Left: 5-/5 -Ankle Dorsiflexion [L5]: ---Right: 5/5 ---Left: 5/5 -Great Toe Extension [L5]: ---Right: 5/5 ---Left: 5/5 -Ankle Eversion & Inversion [L5-S1]: ---Right: 5/5 ---Left: 5/5 -Hip abduction: ---Right: 4/5 ---Left: 3+/5 -Hip extension: ---Right: 5/5 ---Left: 5/5 -Knee flexion [S1]: ---Right: 5/5 ---Left: 5-/5 PT INTERVENTIONS: risks/benefits reviewed and verbal consent obtained for interventions THERAPEUTIC EXERCISE: -Verbal review of Sit to stands -*Supine SLR: x 10 rep L -*Bridges: x 10 rep -*Clam shells: x 10 rep B -*Seated hamstring curl with black band: x 10 rep on L * = new exercise provided for home program; handout/updated home program provided for home HOME PROGRAM: Access Code: [email or web address] URL: [email or web address] Date: 12/21/2023 Prepared by: Adri Brown - Sidelying Shoulder External Rotation - 1-2 [...] sets - 10 reps - 5 hold - Supine Active Straight Leg Raise - 1-2 x daily - 7 x weekly - 1-2 sets - 10 reps - Supine Bridge - 1-2 x daily - 7 x weekly - 1-2 sets - 10 reps - Clamshell - 1-2 x daily - 7 x weekly - 1-2 sets - 10 reps - Seated Hamstring Curl with Anchored Resistance - 1-2 x daily - 7 x weekly - 1-2 sets - 10 reps _ GOALS: additional goals to be established next session 1. PATIENT GOAL: To be able to hold his arm in positions out from the body for at least 30+ minutes without increase in pain to rest comfortably by end of day in 6-8 visits. -ONGOING, early on in plan of care 2. Pt will demonstrate improved function as evident by increase in Promis 6b total score for shoulder by 4 points in 6-8 sessions. -ONGOING, early on in plan of care 3. Pt will demonstrate at least 60 deg ER AROM to improve functional mobility for ADLs (reaching behind head/washing hair)in 4-6 visits. -ONGOING, early on in plan of care _ ASSESSMENT: is a 63 year old with signs and symptoms consistent with resolving left shoulder pain. However, new stroke since last visit. Demonstrates mild left LE weakness. Will assess further at next visit. Response to Treatment: correct return demo of exercises without c/o increased pain, written handout provided PLAN: Continue PT x 6-8 sessions, 1 x/wk to every other week for therapeutic exercise, therapeutic activity, manual therapy prn and patient education. agreeable to follow up in 1-3 weeks. NEXT SESSION: -Assess deficits related to stroke. -Progress home program for scapular stability and rotator cuff strengthening. Patient Education on Treatment Plan: PT role, POC, rehab expectations. Patient indicated readiness to learn, verbalizes understanding, agreement and satisfaction with the treatment plan. Denies further questions. /sarwat/ Adri Kearns PT, DPT, GCS Signed: 12/21/2023 12:10 ADRI KEARNS [facility]
--- OUTSIDE RECORDS SUMMARY | 2024-01-02 23:06 | XMS_ITS | Encounter Summary ---
Author Name [facility] [place] Organization [facility] [place] Address [address] [place] [address] Care Team Providers Care Obstetrician/Gynecologist Name Role Phone KATELYN PATTON Primary Care Provider Unavailabl e Selected Encounter This section includes the information on record at [place] for the Encounter. 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 This section includes future appointments and future orders which are active, pending or scheduled. Future Appointments This section includes appointments that were scheduled to occur 6 months from the date of the Encounter, up to a maximum of 20 appointments. The data comes from all [facility]. Appointment Date/Time Appointment Type Appointme nt Facility Name Jan 02, 2024 01:30 PM AMBULATORY - REHAB MEDICIN E [facility] Jan 08, 2024 10:30 AM AMBULATORY - NONE [facility] Jan 11, 2024 05:00 PM AMBULATORY - REHAB MEDICIN E [facility] Jan 11, 2024 05:10 PM AMBULATORY - REHAB MEDICIN E [facility] Jan 16, 2024 10:00 AM AMBULATORY - REHAB MEDICIN [facility] Jan 25, 2024 08:00 AM AMBULATORY - REHAB MEDICIN E [facility] Mar 24, 2024 11:45 AM AMBULATORY - NONE [facility] Active, Pending, and Scheduled Orders This section includes a listing of several types of active, pending, and scheduled orders, including clinic medications orders, diagnostic test orders, procedure orders and consult orders; where the start date of the order is 45 days before the date of the Encounter or 45 days after the date of theEncounter. The data comes from all [facility]. Test Date/Time Test Type Test Details Facility Name Dec 21, 2023 12:00 AM Laboratory - Chemi stry Order BASIC METABOLIC PANEL+MG PLAS[facility] SP ONCE [facility] Dec 21, 2023 12:00 AM Laboratory - Chemi stry Order AST/SGOT [facility]AS[facility] SP [facility] Dec 25, 2023 01:17 PM Consult Order STROKE PETER AB OUTPT Cons Marketing Operations Assistant's Choice [facility] Lab Results: +/- 30 days of the encounter This section includes the Chemistry and Hematology Lab Results on record with [place] for the patient. Radiology Reports and Pathology Reports are provided separately, in subsequent sections. Lab Results This section contains the Chemistry/Hematology Results that were resulted 30 days before or 30 daysafter the date of the Encounter. Date/Time Source Result Type Result - Unit Interpretation Reference Range Comment Dec 25, 2023 01:31 PM [facility] BASIC METABOLIC PANEL+MG Specimen Type: PLASMA No comment entered. Ordering Provider: KATELYN PATTON Report Released Date/Time: Dec 25, 2023 01:19 PM Reporting Lab: [facility] [id number] Performing Lab: [facility] [place] [address] CREATININE 1.3 mg/dL H 0.7-1.2 UREA NITROGEN 24 mg/dL 8-26 GLUCOSE 84 mg/dL 70-100 SODIUM 142 mmol/L 136-145 POTASSIUM 4.0 mmol/L 3.5-5.1 CHLORIDE 111 mmol/L H 98-107 CO2 25 mmol/L 22-29 CALCIUM 9.2 mg/dL 8.4-10.2 MAGNESIUM 2.1 mg/dL 1.6-2.6 ANION GAP 6 mmol/L 5-15 .CREAT EGFR(CKD-EPI) 63 >60 Vital Signs: All taken on the encounter date This section contains inpatient and outpatient Vital Signs collected on the date of the Encounter. Date/Time Temperature Pulse Blood Pressure Respiratory Rate SP02 Pain Height Weight Body Mass Index Source Dec 25, 2023 12:37 PM 97 79 126/80 16 96 1 [facility] Immunizations: All administered on the encounter date This section contains immunizations associated to the Encounter. Immunization Series Date Issued Reaction Comments TDAP Dec 25, 2023 Social History: Smoking Status (Most current) and Tobacco Use (All prior to encounter date) This section includes the most current, and the historical, smoking and tobacco- related health factors from the [place] facility where the Encounter took place. Current Smoking Status This section includes the most current smoking, or tobacco-related health factor, from the [place] facility where the Encounter took place. Date/Time Current Smoking Status Comment Michelle ity June 27, 2023 10:00 AM VA-TOBACCO NEVER USED [facility] Encounter Notes: All associated encounter notes This section contains the clinical notes associated to the Encounter. Date/Time Encounter Note(s) Provider Source Dec 25, 2023 12:44 PM PRIMARY CARE NOTE: LOCAL TITLE: [facility] PROGRESS NOTE - [facility] STANDARD TITLE: PRIMARY CARE NOTE DATE OF NOTE: DEC 25, 2023@12:44 ENTRY DATE: DEC 25, 2023@12:44:49 AUTHOR: KATELYN PATTON COSIGNER: URGENCY: STATUS: COMPLETED Today's Nurse check-in note reviewed. seen in the clinic today. Followed all current PPE guidelines during the visit. Preferred name: Fozia Patient brought in outside medical records and have been reviewed: In JL V *JLV = active Chief complaint: An established patient here for recent hospital follow-up. He is accompanied with his ex- Arun. History of Present Illness: -Small right thalamic ischemic stroke-hospitalized 12/16/2023 to 12/18/2023 -In the hospital ,started on ASA indefinitely, Plavix for 21 days and atorvastatin 20 mg daily -He went to the ED due to sudden onset of left leg weakness and numbness -Brain MRI revealed-small right thalamic ischemic stroke, no hemorrhage or mass effect -CTA head and neck- no significant stenosis or occlusion in the cervical or intracranial vasculature -Echo- 12/2023- EF- 60-65% -Today feeling much better, denies any chest pain, SOB, chest pressure, has residual left-sided hand and leg weakness, as per ex--she is noticing short- term memory loss as well, working with physical therapy in the community for left-sided weakness, now he would like to establish care with neurology at [place] -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 Hypothyroidism 9. Gastroesophageal reflux disease 10. Exposure to potentially hazardous substance ([facility] [id number]) - Entered automatically through [facility] Problem List documentation program Allergies: ACETAMINOPHEN/HYDROCODONE (June 27, 2023) TAPE (June 27, 2023) SEASONAL ALLERGIES (June 27, 2023) Medication Reconciliation: Education Evaluations *Was medication education [...] were also reviewed/updated for accuracy. Allergies/ADR from [employer] may not display in CPRS. Use JLV MRT5 - Allergies/ADRs FACILITY ALLERGY/ADR -------- No Remote Allergy/ADR Data available for this patient [facility] ACETAMINOPHEN/HYDROCODONE [facility] SEASONAL ALLERGIES [facility] TAPE Active and Recently Outpatient Medications (including Supplies): Issue Date Status Last Fill Active Outpatient Medications Refills Expiration 1) CETIRIZINE HCL 10MG TAB Qty: 90 for 90 ACTIVE Issu:06-27-23 days Sig: TAKE ONE TABLET BY MOUTH Refills: 2 Last:10-30-23 EVERY MORNING FOR ALLERGIES Expr:06-27-24 2) LEVOTHYROXINE NA (SYNTHROID) 100MCG TAB ACTIVE (S) Issu:06-27-23 Qty: 90 for 90 days Sig: TAKE ONE Refills: 1 Last:03-21-24 TABLET BY MOUTH EVERY DAY FOR THYROID Expr:06-27-24 3) LIOTHYRONINE NA 5MCG TAB Qty: 90 for 90 ACTIVE Issu:06-27-23 days Sig: TAKE ONE TABLET BY MOUTH Refills: 3 Last:06-27-23 EVERY MORNING FOR THYROID Expr:06-27-24 4) OMEPRAZOLE 20MG EC CAP Qty: 45 for 45 ACTIVE Issu:06-27-23 days Sig: TAKE ONE CAPSULE BY MOUTH Refills: 0 Last:12-20-23 EVERY DAY NEEDED FOR HEARTBURN - Expr:06-27-24 TAKE ON EMPTY STOMACH 5) ONDANSETRON 4MG ORAL DISINTEGRATING TAB ACTIVE Issu:06-27-23 Qty: 30 for 30 days Sig: DISSOLVE ONE Refills: 2 Last:11-13-23 TABLET BY MOUTH EVERY MORNING Expr:06-27-24 NEEDED FOR NAUSEA AND VOMITING 6) TAMSULOSIN HCL 0.4MG CAP Qty: 90 for 90 ACTIVE Issu:06-27-23 days Sig: TAKE ONE CAPSULE BY MOUTH Refills: 2 Last:10-30-23 EVERY MORNING FOR URINARY SYMPTOMS Expr:06-27-24 Issue Date Status Last Fill Pending Outpatient Medications Refills Expiration 1) ATORVASTATIN CALCIUM 20MG TAB Qty: 90 PENDING Sig: TAKE ONE TABLET BY MOUTH AT Refills: 0 BEDTIME 2) CETIRIZINE HCL 10MG TAB Qty: 90 Sig: PENDING TAKE ONE TABLET BY MOUTH EVERY MORNING Refills: 0 3) LEVOTHYROXINE NA (SYNTHROID) 100MCG TAB PENDING Qty: 90 Sig: TAKE ONE TABLET BY MOUTH Refills: 0 EVERY DAY 4) LIOTHYRONINE NA 5MCG TAB Qty: 90 Sig: PENDING TAKE ONE TABLET BY MOUTH EVERY MORNING Refills: 0 5) OMEPRAZOLE 20MG EC CAP Qty: 45 Sig: PENDING TAKE ONE CAPSULE BY MOUTH EVERY DAY Refills: 0 NEEDED - TAKE ON EMPTY STOMACH 6) ONDANSETRON 4MG ORAL DISINTEGRATING TAB PENDING Qty: 30 Sig: DISSOLVE ONE TABLET BY Refills: 0 MOUTH EVERY MORNING NEEDED 7) TAMSULOSIN HCL 0.4MG CAP Qty: 90 Sig: PENDING TAKE ONE CAPSULE BY MOUTH EVERY Refills: 0 MORNING Start Date Active Non-VA Medications Refills Expiration 1) Non-VA ASPIRIN 81MG EC TAB SiMG ACTIVE MOUTH 2) Non-VA MULTIVITAMIN CAP/TAB Si ACTIVE TABLET MOUTH EVERY DAY 15 Total Medications Physical Exam: Vitals: BP: 126/80 (12/25/2023 12:37) P: 79 (12/25/2023 12:37) R: 16 (12/25/2023 12:37) T: 97 F [36.1 C] (12/25/2023 12:37) WT: 220 lb [99.79 kg] (08/15/2023 09:13) BMI: 29.5 Pain: 1 (12/25/2023 12:37) O2 Sat: 96% (12/25/2023 12:37) GENERAL: Alert and oriented x 3, No [...] Cooperative, Good eye contact,Appropriate mood and affect Assessment and plan: # Mild ischemic stroke -Refilled atorvastatin 20 mg daily, goal LDL less than 70 -Labs-lipid panel at 3 months -Well-controlled blood pressure today, was elevated in the hospital, asymptomatic told him to monitor blood pressure for next 2-week and if averages greater than 130/80 then update us -Plavix 75 mg for next 21 days-does not need prescription -Neurology consult placed -Stroke rehab consult placed for left-sided weakness and short-term memory loss -Answered all his questions -Can do exercise daily aerobic greater than 30 minutes as tolerated -Filling signed FMLA paperwork -BMP ordered today Total time personally spent by the provider on encounter was __45__ minutes. Will follow up on labs when available. If all is well we can see [...] when interpreting information found in this chart. /sarwat/ KATELYN PATTON DNP,TEXTILE EXAMINER,ARDMS Signed: 12/25/2023 16:44 KATELYN PATTON CB Dec 25, 2023 12:41 PM PRIMARY CARE NURSI NG NOTE: LOCAL TITLE: [facility] NURSING PROGRESS NOTE STANDARD TITLE: PRIMARY CARE NURSING NOTE DATE OF NOTE: DEC 25, 2023@12:41 ENTRY DATE: DEC 25, 2023@12:41:55 AUTHOR: DANUTA HUNT EXP COSIGNER: URGENCY: STATUS: COMPLETED TYPE OF VISIT: Appointment Check In Type of appointment: In-person appointment REASON FOR VISIT: Ischemic Stroke ALLERGIES: ACETAMINOPHEN/HYDROCODONE (June 27, 2023) TAPE (June 27, 2023) SEASONAL ALLERGIES (June 27, 2023) VITAL SIGNS: Blood Pressure: 126/80 (12/25/2023 12:37) Pulse: 79 (12/25/2023 12:37) Respiration: 16 (12/25/2023 12:37) Temperature: 97 F [36.1 C] (12/25/2023 12:37) Weight: 220 lb [99.79 kg] (08/15/2023 09:13) Height: 72.441 in [184.0 cm] (06/27/2023 09:55) BMI: 29.5 O2 Sat: 96% (12/25/2023 12:37) Pain: 1 (12/25/2023 12:37) PAIN SCREEN: Patient is having significant pain that they would like to talk to their provider about today. Old (Chronic) (began more than 6 months ago) Patient states their average pain this past week is 1 Patient states the average number on how the chronic pain affects their enjoyment of life the past week is 1 Patient states during the past week the average number on how the pain has interfered with their general activity is 1 MEDICATION Active Outpatient Medications (including Supplies): CETIRIZINE HCL 10MG TAB TAKE ONE TABLET BY MOUTH EVERY ACTIVE MORNING FOR ALLERGIES LEVOTHYROXINE NA (SYNTHROID) 100MCG TAB TAKE ONE TABLET BY ACTIVE (S) MOUTH EVERY DAY FOR THYROID LIOTHYRONINE NA [...] CAP/TAB 1 TABLET MOUTH EVERY DAY ACTIVE Tdap Immunization: Administered: TDAP Date Administered: Dec 25, 2023 12:30 Series: Complete Contract Manager: [employer] Lot: [id number] Exp Date: Dec 21, 2025 [facility]: [id number] Admin Route/Site: INTRAMUSCULAR/LEFT DELTOID Dosage: 0.5mL Vaccine Information Statement(s): TDAP (TETANUS, DIPHTHERIA, PERTUSSIS) VACCINE VIS Sep 17, 2020 ([facility]) Order By: Policy Administered By: Danuta Hunt Vaccine Information Sheet (VIS) was given to the patient/caregiver, education regarding adverse reactions was discussed, as well as barriers to learning, if any, were acknowledged. Spoke with PCP regarding get Tdap, there is a Pertussis outbreak in Pts. 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 had Td in 09/05/22. /sarwat/ DANUTA HUNT LPN Signed: 12/25/2023 13:00 DANUTA HUNT [facility]
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
--- OUTSIDE RECORDS SUMMARY | 2024-01-02 23:06 | XMS_ITS | Encounter Summary ---
Author Name [facility] [place] [facility] [place] [facility] [place] [facility] [place] Address [address] [place] [address] Care Team Providers Care Plasterer Spray Gun Name Role Phone KATELYN PATTON Primary Care Provider Unavailjay e Selected Encounter This section includes the information on record at [place] for the Encounter. Date/Time Encounter Type Encounter Description Reason Provider Source Jan 02, 2024 01:30 PM OFF/OP CONSLTJ NEW/EST HI 55 NEUROLOGY ICD-10-CM I63.9 Cerebral infarction, unspecified EXCYOU AYOUB Encounter Template Text not used by [place] Assessments - Encounter Diagnoses This section includes the primary and secondary diagnoses documented for the Encounter. Date/Time Primary/Secondary Diagnosis Diagnosis Name Provider Source Jan 02, 2024 02:17 PM PRIMARY Cerebral infarction, unspecified EXCYOU AYOUB [facility] Plan of Treatment: Future Appointments (+ 6 months) and Future Tests (+/- 45 days) The Plan of Treatment section includes future care activities for the patient from all [place] treatmentfacilities. This section includes future appointments and future orders which are active, pending or scheduled. Future Appointments This section includes appointments that were scheduled to occur 6 months from the date of the Encounter, up to a maximum of 20 appointments. The data comes from all [place] treatment facilities. Appointment Date/Time Appointment Type Appointme nt Facility Name Jan 08, 2024 10:30 AM AMBULATORY - NONE [facility] Jan 11, 2024 05:00 PM AMBULATORY - REHAB [facility] Jan 11, 2024 05:10 PM AMBULATORY - REHAB [facility] Jan 16, 2024 10:00 AM AMBULATORY - RE[facility]AB [facility] Jan 25, 2024 08:00 AM AMBULATORY - REHAB [facility] Mar 24, 2024 11:45 AM AMBULATORY - NONE [facility] Active, Pending, and Scheduled Orders This section includes a listing of several types of active, pending, and scheduled orders, including clinic medications orders, diagnostic test orders, procedure orders and consult orders; where the start date of the order is 45 days before the date of the Encounter or 45 days after the date of theEncounter. The data comes from all [facility]. Test Date/Time Test Type Test Details Facility Name Dec 21, 2023 12:00 AM Laboratory - Chemi stry Order BASIC METABOLIC PANEL+MG [facility] SP ONCE [facility] Dec 21, 2023 12:00 AM Laboratory - Chemi stry Order AST/SGOT [facility] SP [facility] Dec 25, 2023 01:17 PM Consult Order STROKE PETER AB OUTPT Cons Supervisor Wall Mirror Department's Choice [facility] Lab Results: +/- 30 days of the encounter This section includes the Chemistry and Hematology Lab Results on record with [place] for the patient. Radiology Reports and Pathology Reports are provided separately, in subsequent sections. Lab Results This section contains the Chemistry/Hematology Results that were resulted 30 days before or 30 daysafter the date of the Encounter. Date/Time Source Result Type Result - Unit Interpretation Reference Range Comment Dec 25, 2023 01:31 PM [facility] BASIC METABOLIC PANEL+MG Specimen Type: PLASMA No comment entered. Ordering Provider: KATELYN PATTON Report Released Date/Time: Dec 25, 2023 01:19 PM Reporting Lab: [facility] [id number] Performing Lab: [facility] [id number] CREATININE 1.3 mg/dL H 0.7-1.2 UREA NITROGEN [...] Pain Height Weight Body Mass Index Source Jan 02, 2024 01:35 PM 98 81 128/85 16 [address] [place] [facility] Social History: Smoking Status (Most current) and Tobacco Use (All prior to encounter date) This section includes the most current, and the historical, smoking and tobacco- related health factors from the [facility] where the Encounter took place. Current Smoking Status This section includes the most current smoking, or tobacco-related health factor, from the [facility] where the Encounter took place. Date/Time Current Smoking Status Comment Michelle macario Feb 07, 2017 09:25 AM LIFETIME NON-TOBACCO USER [facility] Tobacco Use History This section includes a history of the smoking, or tobacco-related health factors, that were collected on or before the date of the Encounter. The data comes from the [place] facility where the Encounter took place. Date/Time Smoking Status/Tobacco Use Comment F kasandra Aug 28, 2011 10:21 AM LIFETIME NON-TOBACCO USER [facility] Encounter Notes: All associated encounter notes This section contains the clinical notes associated to the Encounter. Date/Time Encounter Note(s) Provider Source Jan 02, 2024 02:08 PM NEUROLOGY CONSULT: LOCAL TITLE: NEUROLOGY CONSULT STANDARD TITLE: NEUROLOGY CONSULT DATE OF NOTE: JAN 02, 2024@14:08 ENTRY DATE: JAN 02, 2024@14:08:44 AUTHOR: YOU AVILA COSIGNER: URGENCY: STATUS: COMPLETED I had the pleasure of seeing Fozia together with his for a neurology consultation. He is a pleasant 63-year-old man with a recent stroke. HISTORY OF PRESENT ILLNESS: He presented to [facility] emergency department with approximate 4 and half hours of left-sided numbness and weakness. CT of the head showed no acute findings. CTA of the head and neck shows no large vessel occlusion. Thrombolytic was not administered since he was out of the window. He was admitted overnight for observation. MRI of the brain the following day revealed small right thalamic ischemic stroke. Cardiac monitoring showed no arrhythmia. Echocardiogram showed no cardioembolic source. Given the history of hyperlipidemia, he was started on statin. He was also put on 21-day course of clopidogrel. Low-dose aspirin was started. After discharge, he noticed gradual improvement of his deficits. [facility] REVIEW: Unremarkable. MEDICAL HISTORY: Active problems - Computerized Problem List is the source for the followin. Squamous cell carcinoma of head and neck - 04/10/2022- EGD and biopsy done- result- gastric mucosa with reactive gastropathy and focal intestinal metaplasia 2. Iatrogenic hypothyroidism 3. Cervicalgia 4. Adjustment disorder with depressed mood 5. 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 Exposure to potentially hazardous substance ([facility] [id number]) - Entered automatically through [facility] Problem List documentation program 11. CVA - cerebrovascular accident due to cerebral artery occlusion - 12/2023- small R ischemic stroke, started ASA and Atorvastatim , Plavix 21 days MEDICATIONS: Active Outpatient Medications (excluding Supplies): Outpatient Medications Status 1) ATORVASTATIN CALCIUM 20MG TAB TAKE ONE TABLET BY ACTIVE MOUTH AT BEDTIME FOR CHOLESTEROL 2) CETIRIZINE HCL 10MG TAB TAKE ONE TABLET BY MOUTH ACTIVE (S) EVERY MORNING FOR ALLERGIES 3) LEVOTHYROXINE NA (SYNTHROID) 100MCG TAB TAKE ONE ACTIVE (S) TABLET BY MOUTH EVERY DAY FOR THYROID 4) LIOTHYRONINE NA 5MCG TAB TAKE ONE TABLET BY MOUTH ACTIVE EVERY MORNING FOR THYROID 5) OMEPRAZOLE 20MG EC CAP TAKE ONE CAPSULE BY MOUTH ACTIVE (S) EVERY DAY NEEDED FOR HEARTBURN - TAKE ON EMPTY STOMACH 6) ONDANSETRON 4MG ORAL DISINTEGRATING TAB DISSOLVE ONE ACTIVE TABLET BY MOUTH EVERY MORNING NEEDED FOR NAUSEA AND VOMITING 7) TAMSULOSIN HCL 0.4MG CAP TAKE ONE CAPSULE BY MOUTH ACTIVE (S) EVERY MORNING FOR URINARY SYMPTOMS Non-VA Medications Status 1) Non-VA ASPIRIN 81MG EC TAB 81MG MOUTH ACTIVE 2) Non-VA MULTIVITAMIN CAP/TAB 1 TABLET MOUTH EVERY DAY ACTIVE 9 Total Medications ALLERGIES: ACETAMINOPHEN/HYDROCODONE (June 27, 2023) TAPE (June 27, 2023) SEASONAL ALLERGIES (June 27, 2023) SOCIAL HISTORY: 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 . Denies smoking. Consumes 2-3 drinks of whiskey 2 to 3 days a week. FAMILY HISTORY: Negative for neurological disease. PHYSICAL EXAMINATION: VITAL SIGNS: Temp: 98 F [36.7 C] (01/02/2024 13:35) Pulse:81 (01/02/2024 13:35) BP: 128/85 (01/02/2024 13:35) Resp: 16 (01/02/2024 13:35) Weight: 220 lb [99.79 kg] (08/15/2023 09:13) Pain: 0 (01/02/2024 13:35) O2 Sat: 97% (01/02/2024 13:35) BMI: 29.5 GENERAL SURVEY: In no acute distress. HEENT: Normocephalic and atraumatic. NECK: Supple. ABDOMEN: Flat. EXTREMITIES: No cyanosis or edema. MUSCULOSKELETAL: Restricted lateral rotation of the neck. NEUROLOGICAL EXAMINATION: MENTAL STATUS: Awake, alert and oriented. CRANIAL NERVES II-XII: Visual gary are full to confrontation and double simultaneous stimulation. Extraocular muscle movements are full and conjugate. No nystagmus is observed. Pupils are reactive to light and accommodation. Facial sensation is intact. There is no facial asymmetry. Auditory sensation is intact. Uvula is midline. Palate rises lower on the left with phonation. Sternocleidomastoid and trapezius muscles have normal strength. Tongue is midline on protrusion. MOTOR: Normal muscle bulk, tone, power and dexterity. COORDINATION: No dysmetria or dysdiadochokinesia. Stance and gait are normal. SENSATION: Intact to light touch. REFLEXES: Diffusely diminished. Slightly brisker on the left patella compared to the right. DIAGNOSTIC TEST RESULTS: MRI BRAIN WO Small R thalamic ischemic stroke, no hemorrhage or mass effect CTA head/neck No significant stenosis or occlusion in the cervical or intracranial vasculature. TTE 1. No cardioembolic source. 2. EF- 60-65% A1c 5.2 LDL 102 IMPRESSION: Right thalamic stroke, most likely due to small vessel disease, in a 63-year-old man with hyperlipidemia. PLAN: 1. Continue stroke risk factor modification. Blood pressure goal 130/80 or less. LDL 70 or less. A1c 7 or less. 2. Complete 21-day course of clopidogrel. 3. Low-dose aspirin indefinitely. 4. Continue physical therapy. 5. He is currently off work. I instructed him to send me a message in 4 weeks. If he is doing much better, I will release him back to his resource forester duties. The and his expressed understanding of the plan of care. Total encounter time was 60 minutes in preparation, patient care and documentation, including the following: review of records, diagnostics, procedures and services. You Avila MD Diplomate ABPN: Neurology, Epileptology and Clinical Neurophysiology /es/ YOU AVILA MD STAFF NEUROLOGIST Signed: 01/02/2024 14:[address] [facility] Jan 02, 2024 01:37 PM NEUROLOGY NURSING OUTPATIENT NOTE: LOCAL TITLE: NEUROLOGY CLINIC NURSING NOTE STANDARD TITLE: NEUROLOGY NURSING OUTPATIENT NOTE DATE OF NOTE: JAN 02, 2024@13:37 ENTRY DATE: JAN 02, 2024@13:37:40 AUTHOR: MICHEAL PUGH COSIGNER: URGENCY: STATUS: COMPLETED Type of visit: Appointment Check In Reason for Visit: CONSULT Vital Signs: Blood Pressure: 128/85 (01/02/2024 13:35) Pulse: 81 (01/02/2024 13:35) Respiration: 16 (01/02/2024 13:35) Temperature: 98 F [36.7 C] (01/02/2024 13:35) Weight: 220 lb [99.79 kg] (08/15/2023 09:13) Height: 72.441 in [184.0 cm] (06/27/2023 09:55) BMI: 29.5 Pain: 0 (01/02/2024 13:35) Allergies: ACETAMINOPHEN/HYDROCODONE (June 27, 2023) TAPE (June 27, 2023) SEASONAL ALLERGIES (June 27, 2023) Medications: Active Outpatient Medications and Supplies: Active Outpatient Medications (including Supplies): Active Outpatient Medications Status 1) ATORVASTATIN CALCIUM 20MG TAB TAKE ONE TABLET BY ACTIVE MOUTH AT BEDTIME FOR CHOLESTEROL 2) CETIRIZINE HCL 10MG TAB TAKE ONE TABLET BY MOUTH ACTIVE (S) EVERY MORNING FOR ALLERGIES 3) LEVOTHYROXINE NA (SYNTHROID) 100MCG TAB TAKE ONE ACTIVE (S) TABLET BY MOUTH EVERY DAY FOR THYROID 4) LIOTHYRONINE NA 5MCG TAB TAKE ONE TABLET BY MOUTH ACTIVE EVERY MORNING FOR THYROID 5) OMEPRAZOLE 20MG EC CAP TAKE ONE CAPSULE BY MOUTH ACTIVE (S) EVERY DAY NEEDED FOR HEARTBURN - TAKE ON EMPTY STOMACH 6) ONDANSETRON 4MG ORAL DISINTEGRATING TAB DISSOLVE ONE ACTIVE TABLET BY MOUTH EVERY MORNING NEEDED FOR NAUSEA AND VOMITING 7) TAMSULOSIN HCL 0.4MG CAP TAKE ONE CAPSULE BY MOUTH ACTIVE (S) EVERY MORNING FOR URINARY SYMPTOMS Active Non-VA Medications Status 1) Non-VA ASPIRIN 81MG EC TAB 81MG MOUTH ACTIVE 2) Non-VA MULTIVITAMIN CAP/TAB 1 TABLET MOUTH EVERY DAY ACTIVE 9 Total Medications Patient reports the following changes regarding the current pharmacy list of medications: The above medication list confirmed with patient. A copy of the above medication list given to the MD for review and update. Provider will give printed copy of medication list to patient with any changes documented on printed medication list. /sarwat/ MICHEAL PUGH LPN LPN Signed: 01/02/2024 13:[address] [facility]
--- OUTSIDE RECORDS SUMMARY | 2024-01-02 23:06 | XMS_ITS | Encounter Summary ---
Author Name [facility] [place] Organization [place] Address [address] [place] [address] Care Team Providers Care Talent Acquisition Relationship Manager Name Role Phone KATELYN PATTON Primary Care Provider Unavailabl e Selected Encounter This section includes the information on record at [place] for the Encounter. Date/Time Encounter Type Encounter Description Reason Pro vider Source Dec 28, 2023 03:35 PM Outpatient Encounter PRIMARY CARE/MEDICINE IHE Encounter Template Text not used by [place] [...] 01:30 PM AMBULATORY - [facility]AB [facility] Jan 08, 2024 10:30 AM AMBULATORY - NONE [facility] Jan 11, 2024 05:00 PM AMBULATORY - [facility] Jan 11, 2024 05:10 PM AMBULATORY - REHAB [facility]IN [facility] Jan 16, 2024 10:00 AM AMBULATORY - REHAB [facility]IN [facility] Jan 25, 2024 08:00 AM AMBULATORY - REHAB [facility]ICIN [facility] Mar 24, 2024 11:45 AM AMBULATORY - NONE [facility] Active, Pending, and Scheduled Orders This section includes a listing of several types of active, pending, and scheduled orders, including clinic medications orders, diagnostic test orders, procedure orders and consult orders; where the start date of the order is 45 days before the date of the Encounter or 45 days after the date of theEncounter. The data comes from all [place] treatment facilities. Test Date/Time Test Type Test Details Facility Name Dec 21, 2023 12:00 AM Laboratory - Chemi stry Order BASIC METABOLIC PANEL+MG [facility] SP ONCE [facility] Dec 21, 2023 12:00 AM Laboratory - Chemi stry Order AST/SGOT [facility] SP [facility] Dec 25, 2023 01:17 PM Consult Order STROKE PETER AB OUTPT Cons Ribbon Hanking Machine Operator's Choice [facility] Lab Results: +/- 30 days of the encounter This section includes the Chemistry and Hematology Lab Results on record with [place] for the patient. Radiology Reports and Pathology Reports are provided separately, in subsequent sections. Lab Results This section contains the Chemistry/Hematology Results that were resulted 30 days before or 30 daysafter the date of the Encounter. Date/Time Source Result Type Result - Unit Interpretation Reference Range Comment Dec 25, 2023 01:31 PM [facility] BASIC METABOLIC PANEL+MG Specimen Type: PLASMA No comment entered. Ordering Provider: KATELYN PATTON Report Released Date/Time: Dec 25, 2023 01:19 PM Reporting Lab: [facility] [id number] Performing Lab: [facility] [id number] CREATININE 1.3 mg/dL H 0.7-1.2 UREA NITROGEN [...] and tobacco- related health factors from the [place] facility where the Encounter took place. Current Smoking Status This section includes the most current smoking, or tobacco-related health factor, from the [facility] where the Encounter took place. Date/Time Current Smoking Status Comment Michelle bauery Feb 07, 2017 09:25 AM LIFETIME NON-TOBACCO USER [facility] Tobacco Use History This section includes a history of the smoking, or tobacco-related health factors, that were collected on or before the date of the Encounter. The data comes from the [facility] where the Encounter took place. Date/Time Smoking Status/Tobacco Use Comment F acility Aug 28, 2011 10:21 AM LIFETIME NON-TOBACCO USER [facility] Encounter Notes: All associated encounter notes This section contains the clinical notes associated to the Encounter. Date/Time Encounter Note(s) Provider Source Dec 31, 2023 10:46 AM ADDENDUM: LOCAL TITLE: Addendum STANDARD TITLE: ADDENDUM DATE OF NOTE: DEC 31, 2023@10:46:06 ENTRY DATE: DEC 31, 2023@10:46:08 AUTHOR: YULISA ARECHIGA EXP COSIGNER: URGENCY: STATUS: COMPLETED RN spoke to [employer] maintenance representative who clarified that PCP initially completed the generic FMLA form. This form needs the dates corrected to 12/16/2023-01/30/2024 and for page 3, part B question 8 to be completed. This form is for FMLA only. Vet is also requesting disability and so two additional forms are needed, which will be sufficient for both FMLA and disability. Plan: RTC entered for appointment with covering PCP to review and complete additional paperwork. To [facility] to please call and schedule appointment /es/ YULISA ARECHIGA REGISTERED NURSE Signed: 01/01/2024 14:37 Receipt Acknowledged By: 01/01/2024 16:34 /sarwat/ OMAR OBRIEN --- Original Document --- 12/28/23 PATIENT CONTACT NOTE: Patient contact Name of Smoot: FOZIA WARE Name/Relationship of Contact if other than : Date & Time of Contact: Dec@15:35 Type of Contact: Other Fax Reason for Contact: Linda [address] [place] [address] Pt. is administering the Leave of Absence and Short-Term Disability, placing document in PCP, to be signed Fax Folder. Covering PCP if you need brief writer to print out please update when you are ready to fillout. /sarwat/ DANUTA OLMSTEAD LPN Signed: 12/28/2023 15:39 Receipt Acknowledged By: 12/30/2023 17:54 /sarwat/ CE BYRNES DNP for KATELYN PATTON 12/30/2023 ADDENDUM STATUS: COMPLETED Routing to RN for assistance Extensive disability form-patient new to this provider if RN can fill the form or I need an appointment /CE Sullivan DNP Signed: 12/30/2023 17:56 Receipt Acknowledged By: 12/31/2023 10:23 /sarwat/ YULISA ARECHIGA REGISTERED NURSE 12/31/2023 ADDENDUM STATUS: COMPLETED RTC entered for [facility] PCP appointment for completion of needed forms. /sarwat/ YULISA ARECHIGA REGISTERED NURSE Signed: 12/31/2023 10:26 YULISA ARECHIGA [facility] Dec 30, 2023 05:55 PM ADDENDUM: LOCAL TITLE: Addendum STANDARD TITLE: ADDENDUM DATE OF NOTE: DEC 30, 2023@17:55:16 ENTRY DATE: DEC 30, 2023@17:55:17 AUTHOR: ERVIN HANNAH EXP COSIGNER: URGENCY: STATUS: COMPLETED Routing to RN for assistance Extensive disability form-patient new to this provider if RN can fill the form or I need an appointment /CE Sullivan DNP Signed: 12/30/2023 17:56 Receipt Acknowledged By: 12/31/2023 10:23 /es/ YULISA ARECHIGA REGISTERED NURSE --- Original Document --- 12/28/23 PATIENT CONTACT NOTE: Patient contact Name of : FOZIA WARE Name/Relationship of Contact if other than Smoot: Date & Time of Contact: Dec@15:35 Type of Contact: Other Fax Reason for Contact: [place] [address] [place] [address] Pt. is administering the Leave of Absence and Short-Term Disability, placing document in PCP, to be signed Fax Folder. Covering PCP if you need brief writer to print out please update when you are ready to fillout. /sarwat/ DANUTA OLMSTEAD LPN Signed: 12/28/2023 15:39 Receipt Acknowledged By: 12/30/2023 17:54 /es/ CE BYRNES DNP for KATELYN ERVIN GRAY [facility] Dec 28, 2023 03:35 PM REPORT OF CONTACT: LOCAL TITLE: PATIENT CONTACT NOTE STANDARD TITLE: REPORT OF CONTACT DATE OF NOTE: DEC 28, 2023@15:35 ENTRY DATE: DEC 28, 2023@15:35:43 AUTHOR: DANUTA OLMSTEAD COSIGNER: URGENCY: STATUS: COMPLETED PATIENT CONTACT NOTE Has ADDENDA Patient contact Name of : ALLINGUYENFOZIA MANCUSO Name/Relationship of Contact if other than Smoot: Date & Time of Contact: Dec@15:35 Type of Contact: Other Fax Reason for Contact: [employer] [address] [place] [address] Pt. is administering the Leave of Absence and Short-Term Disability, placing document in PCP, to be signed Fax Folder. Covering PCP if you need brief writer to print out please update when you are ready to fillout. /sarwat/ DANUTA OLMSTEAD LPN Signed: 12/28/2023 15:39 Receipt Acknowledged By: 12/30/2023 17:54 /sarwat/ CE BYRNES DNP for KATELYN PATTON 12/30/2023 ADDENDUM STATUS: COMPLETED Routing to RN for assistance Extensive disability form-patient new to this provider if RN can fill the form or I need an appointment /CE Sullivan DNP Signed: 12/30/2023 17:56 Receipt Acknowledged By: 12/31/2023 10:23 /sarwat/ YULISA ARECHIGA REGISTERED NURSE 12/31/2023 ADDENDUM STATUS: COMPLETED RTC entered for [facility] PCP appointment for completion of needed forms. /sarwat/ YULISA ARECHIGA REGISTERED NURSE Signed: 12/31/2023 10:26 12/31/2023 ADDENDUM STATUS: COMPLETED RN spoke to [employer] maintenance representative who clarified that PCP initially completed the generic FMLA form. This form needs the dates corrected to 12/16/2023-01/30/2024 and for page 3, part B question 8 to be completed. This form is for FMLA only. Vet is also requesting disability and so two additional forms are needed, which will be sufficient for both FMLA and disability. Plan: RTC entered for appointment with covering PCP to review and complete additional paperwork. To [facility] to please call and schedule appointment /sarwat/ YULISA ARECHIGA REGISTERED NURSE Signed: 01/01/2024 14:37 Receipt Acknowledged By: 01/01/2024 16:34 /sarwat/ OMAR OBRIEN 01/01/2024 ADDENDUM STATUS: COMPLETED Smoot is scheduled on 01/08/2024 with A[facility] /sarwat/ OMAR OBRIEN Signed: 01/01/2024 16:35 DANUTA OLMSTEAD [facility]
--- OUTSIDE RECORDS SUMMARY | 2024-01-02 23:06 | XMS_ITS | Encounter Summary ---
Author Name [facility] [place] Address [address] [place] [address] Care Team Providers Care Medical Office Secretary Name Role Phone KATELYN PATTON Primary Care Provider Unavailabl e Selected Encounter This section includes the information on record at [place] for the Encounter. Date/Time Encounter Type Encounter Description Reason Pro vider Source Oct 12, 2023 01:36 PM Outpatient Encounter SPEECH-LANGUAGE PATHOLOGY E Encounter Template Text not used by [place] Plan of Treatment: Future Appointments (+ 6 months) and Future Tests (+/- 45 days) The Plan of Treatment section includes future care activities for the patient from all [place] treatmentfacilities. This section includes future appointments and future orders which are active, pending or scheduled. Future Appointments This section includes appointments that were scheduled to occur 6 months from the date of the Encounter, up to a maximum of 20 appointments. The data comes from all [place] treatment facilities. Appointment Date/Time Appointment Type Appointme nt Facility Name Oct 26, 2023 05:30 PM AMBULATORY - REHAB MEDICIN E [facility] Nov 26, 2023 02:00 PM [facility]ORY [place]ONE [place] [facility] Nov 28, 2023 10:30 AM AMBULATORY - REHAB MEDICIN E [facility] Dec 17, 2023 10:38 AM [facility]ORY [place] NONE [place] [facility] Dec 21, 2023 11:30 AM AMBULATORY - REHAB MEDICIN E [facility] Dec 25, 2023 12:30 PM [facility]ORY [facility]IC[facility] Jan 02, 2024 01:30 PM AMBULATORY - REHAB MEDICIN E [facility] Jan 08, 2024 10:30 AM AMBULATORY - NONE [facility] Jan 11, 2024 05:00 PM AMBULATORY - REHAB MEDICIN E [facility] Jan 11, 2024 05:10 PM AMBULATORY - REHAB MEDICIN E [facility] Jan 16, 2024 10:00 AM AMBULATORY - REHAB MEDICIN E [facility] Jan 25, 2024 08:00 AM AMBULATORY - REHAB MEDICIN E [facility] Mar 24, 2024 11:45 AM AMBULATORY - NONE [facility] Active, Pending, and Scheduled Orders This section includes a listing of several types of active, pending, and scheduled orders, including clinic medications orders, diagnostic test orders, procedure orders and consult orders; where the start date of the order is 45 days before the date of the Encounter or 45 days after the date of theEncounter. The data comes from all [place] treatment facilities. Test Date/Time Test Type Test Details Facility Name Oct 01, 2023 08:04 PM Consult Order [facility] Cons Student Support Services Director's Choice [facility] Social History: Smoking Status (Most current) and Tobacco Use (All prior to encounter date) This section includes the most current, and the historical, smoking and tobacco- related health factors from the [place] facility where the Encounter took place. Current Smoking Status This section includes the most current smoking, or tobacco-related health factor, from the [place] facility where the Encounter took place. Date/Time Current Smoking Status Comment Michelle macario Feb 07, 2017 09:25 AM LIFETIME NON-TOBACCO USER [facility] Tobacco Use History This section includes a history of the smoking, or tobacco-related health factors, that were collected on or before the date of the Encounter. The data comes from the [place] facility where the Encounter took place. Date/Time Smoking Status/Tobacco Use Comment F acility Aug 28, 2011 10:21 AM LIFETIME NON-TOBACCO USER [facility] Radiology Reports: +/- 30 days of [...] the Encounter. The data comes from all [place] treatment facilities. 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 Sammie Topete LAST CREATININE 1.4 [...] of findings. VERIFIED BY: / *ELECTRONICALLY FILED* [facility] Encounter Notes: All associated encounter notes This section contains the clinical notes associated to the Encounter. Date/Time Encounter Note(s) Provider Source Oct 12, 2023 01:36 PM REPORT OF CONTACT: LOCAL TITLE: APPOINTMENT SCHEDULING NOTE STANDARD TITLE: REPORT OF CONTACT DATE OF NOTE: OCT 12, 2023@13:36 ENTRY DATE: OCT 12, 2023@13:36:10 AUTHOR: MOMO MENCHACA EXP COSIGNER: URGENCY: STATUS: COMPLETED APPOINTMENT SCHEDULING NOTE Has ADDENDA Attempted to schedule Return to clinic (RTC) Contact attempt made to 1st attempt Telephone 2nd attempt Text message 3rd attempt Letter - Sent letter by regular [place] mail to address on file: ALLIMAGDALENAFOZIA JUNG [address] [place] [address] Left message on voice mail to call back to this number [phone] If [facility] calls back, schedule appt for: 10/11/2023 13:35 New Order entered by LILIA LACEY (SPEECH PATHOLOG) Order Text: [facility] on or around ( Oct 29, 2023 ) for a total of 1 appointment(s) 60 min /sarwat/ MOMO MENCHACA ADVANCED MSA Signed: 10/12/2023 13:36 10/29/2023 ADDENDUM STATUS: COMPLETED Attempted to schedule Return to clinic (RTC) Other: Patient has not responded to scheduling contact attempts for below RTC Order - has failed mandated scheduling effort. RTC Order has been dispositioned. If [facility] calls back, schedule appt for: Return to [facility] [employer] MANA[employer] LILIA on or around ( Oct 29, 2023 ) for a total of 1 appointment(s) 60 min /sarwat/ MOO SEXTON HELICOPTER CREW CHIEF Signed: 10/29/2023 09:55 MOMO MENCHACA [facility]
--- OUTSIDE RECORDS SUMMARY | 2024-01-02 23:06 | XMS_ITS | Encounter Summary ---
Author Name [place] Address [address] [place] [address] Care Team Providers Care Film Numberer Name Role Phone KATELYN PATTON Primary Care Provider Unavailabl e Selected Encounter This section includes the information on record at [place] for the Encounter. Date/Time Encounter Type Encounter Description Reason Provider Source Nov 28, 2023 10:30 AM PT EVAL LOW COMPLEX 20 MIN PHYSICAL THERAPY ICD-10-CM G89.29 Other chronic pain NANDINI KEARNS RA [facility] Encounter Template Text not used by [place] Assessments - Encounter Diagnoses This section includes the primary and secondary diagnoses documented for the Encounter. Date/Time Primary/Secondary Diagnosis Diagnosis Name Provider Source Nov 28, 2023 12:08 PM PRIMARY Other chronic pain NANDINI KEARNS RA [facility] Nov 28, 2023 12:08 PM SECONDARY Pain in left shoulder NANDINI KEARNS RA [facility] Nov 28, 2023 12:08 PM SECONDARY Radiculopathy, cervical region NANDINI KEARNS RA [facility] Plan of Treatment: Future Appointments (+ 6 months) and Future Tests (+/- 45 days) The Plan of Treatment section includes future care activities for the patient from all [place] treatmentfacilities. This section includes future appointments and future orders which are active, pending or scheduled. Future Appointments This section includes appointments that were scheduled to occur 6 months from the date of the Encounter, up to a maximum of 20 appointments. The data comes from all [facility]. Appointment Date/Time Appointment Type Appointme nt Facility Name Dec 17, 2023 10:38 AM AMBULATORY - NONE [place] [facility] Dec 21, 2023 11:30 AM AMBULATORY - REHAB MEDICIN E [facility] Dec 25, 2023 12:30 PM [facility]ATORY - [facility]IC[facility] Jan 02, 2024 01:30 PM AMBULATORY - REHAB MEDICIN E [facility] Jan 08, 2024 10:30 AM AMB[facility]ATORY - NONE [facility] Jan 11, 2024 05:00 PM AMBULATORY - REHAB MEDICIN E [facility] Jan 11, 2024 05:10 PM AMBULATORY - REHAB MEDICIN E [facility] Jan 16, 2024 10:00 AM AMBULATORY - REHAB MEDICIN E [facility] Jan 25, 2024 08:00 AM AMBULATORY - REHAB MEDICIN E [facility] Mar 24, 2024 11:45 AM AMBULATORY - NONE [facility] Active, Pending, and Scheduled Orders This section includes a listing of several types of active, pending, and scheduled orders, including clinic medications orders, diagnostic test orders, procedure orders and consult orders; where the start date of the order is 45 days before the date of the Encounter or 45 days after the date of theEncounter. The data comes from all [facility]. Test Date/Time Test Type Test Details Facility Name Dec 21, 2023 12:00 AM Laboratory - Chemi stry Order BASIC METABOLIC PANEL+MG [facility] SP ONCE [facility] Dec 21, 2023 12:00 AM Laboratory - Chemi stry Order AST/SGOT [facility] SP [facility] Dec 25, 2023 01:17 PM Consult Order STROKE PETER AB OUTPT Cons Photoengraving Photographer's Choice [facility] Lab Results: +/- 30 days of the encounter This section includes the Chemistry and Hematology Lab Results on record with [place] for the patient. Radiology Reports and Pathology Reports are provided separately, in subsequent sections. Lab Results This section contains the Chemistry/Hematology Results that were resulted 30 days before or 30 daysafter the date of the Encounter. Date/Time Source Result Type Result - Unit Interpretation Reference Range Comment Dec 25, 2023 01:31 PM [facility] BASIC METABOLIC PANEL+MG Specimen Type: PLASMA No comment entered. Ordering Provider: KATELYN PATTON Report Released Date/Time: Dec 25, 2023 01:19 PM Reporting Lab: [facility] [id number] Performing Lab: [facility] [id number] CREATININE 1.3 mg/dL H 0.7-1.2 UREA NITROGEN [...] and tobacco- related health factors from the [place] facility where the Encounter took place. Current Smoking Status This section includes the most current smoking, or tobacco-related health factor, from the [place] facility where the Encounter took place. Date/Time Current Smoking Status Comment Michelle macario Feb 07, 2017 09:25 AM LIFETIME NON-TOBACCO USER [facility] Tobacco Use History This section includes a history of the smoking, or tobacco-related health factors, that were collected on or before the date of the Encounter. The data comes from the [place] facility where the Encounter took place. Date/Time Smoking Status/Tobacco Use Comment Shelby slaughter Aug 28, 2011 10:21 AM LIFETIME NON-TOBACCO USER [facility] Encounter Notes: All associated encounter [...] of VISITS: 1 # of CX/NS: 0 [place] Screen Due: NO Name Used: Informed verbal consent received for physical therapy evaluation and treatment. SUBJECTIVE: Chief Concern: Pt is a 63 year old [place] who presents to PT for left shoulder [...] stiffness, but not the pain. 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 -Check RADHA Patient Education on Treatment Plan: PT role, [...] DPT, GCS Signed: 11/28/2023 12:56 ADRI KEARNS [facility]
--- OUTSIDE RECORDS SUMMARY | 2024-01-02 23:06 | XMS_ITS | Encounter Summary ---
Author Name [facility] [place] Address [address] [place] [address] Care Team Providers Care Fitness Management Director Name Role Phone KATELYN PATTON Primary Care Provider Unavailabl e Selected Encounter This section includes the information on record at [place] for the Encounter. Date/Time Encounter Type Encounter Description Reason Provider Source Jul 24, 2023 08:30 AM OFF/OP CNSLTJ NEW/EST MOD 40 ENDOCRINOLOGY ICD-10-CM E89.0 Postprocedural hypothyroidism FREDI GOULD IHIvette Encounter Template Text not used by [place] Assessments - Encounter Diagnoses This section includes the primary and secondary diagnoses documented for the Encounter. Date/Time Primary/Secondary Diagnosis Diagnosis Name Provider Source Jul 25, 2023 07:48 PM PRIMARY Postprocedural hypothyroidism FREDI GOULD [facility] Plan of Treatment: Future Appointments (+ 6 months) and Future Tests (+/- 45 days) The Plan of Treatment section includes future care activities for the patient from all [place] treatmentfacilities. This section includes future appointments and future orders which are active, pending or scheduled. Future Appointments This section includes appointments that were scheduled to occur 6 months from the date of the Encounter, up to a maximum of 20 appointments. The data comes from all [place] treatment facilities. Appointment Date/Time Appointment Type Appointme nt Facility Name Aug 15, 2023 09:00 AM AMBULATORY - [facility] Sep 03, 2023 09:00 AM [facility]ORY - MEDICINE [facility] Oct 01, 2023 02:30 PM [facility] Oct 01, 2023 03:00 PM AMBULATORY - REHAB MEDICIN E [facility] Oct 26, 2023 05:30 PM AMBULATORY - REHAB MEDICIN E [facility] Nov 26, 2023 02:00 PM [facility] Nov 28, 2023 10:30 AM AMBULATORY - REHAB MEDICIN E [facility] Dec 17, 2023 10:38 AM [facility] [place] [facility] Dec 21, 2023 11:30 AM AMBULATORY - REHAB MEDICIN E [facility] Dec 25, 2023 12:30 PM AM[facility]ATORY - [facility]IC[facility] Jan 02, 2024 01:30 PM AMBULATORY - REHAB MEDICIN E [facility] Jan 08, 2024 10:30 AM AMBULATORY - NONE [facility] Jan 11, 2024 05:00 PM AMBULATORY - REHAB MEDICIN E [facility] Jan 11, 2024 05:10 PM AMBULATORY - REHAB MEDICIN E [facility] Jan 16, 2024 10:00 AM AMBULATORY - REHAB MEDICIN E [facility] Active, Pending, and Scheduled Orders This section includes a listing of several types of active, pending, and scheduled orders, including clinic medications orders, diagnostic test orders, procedure orders and consult orders; where the start date of the order is 45 days before the date of the Encounter or 45 days after the date of theEncounter. The data comes from all [place] treatment [facility]. Test Date/Time Test Type Test Details Facility Name June 27, 2023 12:00 AM Laboratory - Chemi eray Order OCCULT BLOOD FIT X1 SCREEN STOOL FECES SP ONCE [facility] Lab Results: +/- 30 days of the encounter This section includes the Chemistry and Hematology Lab Results on record with [place] for the patient. Radiology Reports and Pathology Reports are provided separately, in subsequent sections. Lab Results This section contains the Chemistry/Hematology Results that were resulted 30 days before or 30 daysafter the date of the Encounter. Date/Time Source Result Type Result - Unit Interpretation Reference Range Comment June 27, 2023 11:54 AM [facility] THYROID STIMULATING IMMUNOGLOBULIN Specimen Type: SERUM Comment: [...] of this assay have been determined by [facility] [place], [place]. The modifications have not been cleared or approved by the FDA. This assay has been validated pursuant to the CLIA regulations and is used for clinical purposes. Test Performed by [facility], [facility], [address] [place] [address] Michael Jimenez M.D., Ph.D., Director of Laboratories , CLIA [id number] Ordering Provider: KATELYN PATTON Report Released Date/Time: June 27, 2023 11:49 AM Reporting Lab: [facility] [id number] Performing Lab: [address] THYROID STIMULATING IMMUNOGLOBULIN <89 SEE BELOW June 27, 2023 11:54 AM [facility] TOTAL T3 Specimen Type: SERUM No comment entered. Ordering Provider: KATELYN PATTON Report Released Date/Time: June 27, 2023 11:49 AM Reporting Lab: [facility] [id number] Performing Lab: [facility] [id number] TOTAL T3 79 ng/dL 35-193 June 27, 2023 11:02 AM [facility] PSA Specimen Type: SERUM No comment entered. Ordering Provider: KATELYN PATTON Report Released Date/Time: June 27, 2023 10:36 AM Reporting Lab: [facility] [id number] Performing Lab: [facility] [id number] PSA 2.07 ng/mL <4.00 June 27, 2023 11:02 AM [facility] HEMOGLOBIN A1C Specimen Type: BLOOD Comment: Values [...] June 27, 2023 10:36 AM Reporting Lab: [facility] [id number] Performing Lab: [facility] [id number] HEMOGLOBIN A1C 5.2 4.0-6.0 June 27, 2023 11:02 AM [facility] COMPREHENSIVE METABOLIC PANEL+MG Specimen Type: PLASMA No comment entered. Ordering Provider: KATELNY PATTON Report Released Date/Time: June 27, 2023 10:36 AM Reporting Lab: [facility] [id number] Performing Lab: [facility] [id number] CREATININE 1.4 mg/dL H 0.7-1.2 UREA NITROGEN [...] L >60 June 27, 2023 11:02 AM [facility] LIPID PANEL,NON-FASTING Specimen Type: PLASMA No comment entered. Ordering Provider: KATELYN PATTON Report Released Date/Time: June 27, 2023 10:36 AM Reporting Lab: [facility] [id number] Performing Lab: [facility] [phone] CHOLESTEROL 169 mg/dL <199 .HDL 57 mg/dL >40 LDL CALCULATION 102 mg/dL H <99 VLDL CALCULATION 10 mg/dL <29 NON HDL CHOLESTEROL 112 mg/dL <129 TRIG(NON FASTING) 50 mg/dL <149 June 27, 2023 11:02 AM [facility] TSH W/REFLEX TO FREE T4 Specimen Type: PLASMA No comment entered. Ordering Provider: KATELYN PATTON Report Released Date/Time: June 27, 2023 10:36 AM Reporting Lab: [facility] [phone] Performing Lab: [facility] [address] TSH 0.95 u[IU]/mL 0.35-4.94 FREE T4 1.11 ng/dL 0.70-1.48 June 27, 2023 11:02 AM [facility] CBC Specimen Type: BLOOD No comment entered. Ordering Provider: KATELYN PATTON Report Released Date/Time: June 27, 2023 10:36 AM Reporting Lab: [facility] [phone] Performing Lab: [facility] [phone] WBC 5.24 10*3/uL 4.0-11.0 RBC 4.76 10*6/uL 4.6-6.2 HGB 14.6 g/dL 13.5-17.9 HCT 43.7 41-54 MCV 91.8 fL 80-100 MCH 30.7 pg 27-33 MCHC 33.4 g/dL 32.0-37.5 PLT 233 10*3/uL 150-400 MPV 10.6 fL H 7.4-10.4 RDW 12.5 11.5-14.5 June 27, 2023 11:02 AM [facility] FREE-T4 Specimen Type: PLASMA No comment entered. Ordering Provider: KATELYN PATTON Report Released Date/Time: June 27, 2023 10:36 AM Reporting Lab: [facility] [phone] Performing Lab: [facility] [id number] FREE T4 1.11 ng/dL 0.70-1.48 Vital Signs: All taken on the encounter date This section contains inpatient and outpatient Vital Signs collected on the date of the Encounter. Date/Time Temperature Pulse Blood Pressure Respiratory Rate SP02 Pain Height Weight Body Mass Index Source Jul 24, 2023 08:34 AM 97.6 80 133/74 18 96 0 224 30 [facility] Social History: Smoking Status (Most current) and Tobacco Use (All prior to encounter date) This section includes the most current, and the historical, smoking and tobacco- related health factors from the [place] facility where the Encounter took place. Current Smoking Status This section includes the most current smoking, or tobacco-related health factor, from the [place] facility where the Encounter took place. Date/Time Current Smoking Status Comment Michelle ity Feb 07, 2017 09:25 AM LIFETIME NON-TOBACCO USER [facility] Tobacco Use History This section includes a history of the smoking, or tobacco-related health factors, that were collected on or before the date of the Encounter. The data comes from the [place] facility where the Encounter took place. Date/Time Smoking Status/Tobacco Use Comment F acdavid Aug 28, 2011 10:21 AM LIFETIME NON-TOBACCO USER [facility] Encounter Notes: All associated encounter notes This section contains the clinical notes associated to the Encounter. Date/Time Encounter Note(s) Provider Source Jul 25, 2023 07:48 PM ADDENDUM: LOCAL TITLE: Addendum STANDARD TITLE: ADDENDUM DATE OF NOTE: JUL 25, 2023@19:48:49 ENTRY DATE: JUL 25, 2023@19:48:49 AUTHOR: JAMES GOULD EXP COSIGNER: URGENCY: STATUS: COMPLETED --we are not neeting to make any adjustments in this pt's thyroid hormone replacement; PCP could follow going forward and re-refer if any future questions/issues develop for us. Alerting PCP to this plan--please let us know if for some reason you would like us to continue following this pt or you ahve any questions. /sarwat/ JAMES GOULD MD PHYSICIAN Signed: 07/25/2023 19:50 Receipt Acknowledged By: 07/27/2023 09:58 /es/ KATELYN PATTON DNP,BRIM RAISER,ARDMS --- Original Document --- 07/24/23 METABOLIC/ENDOCRINE CONSULT: [...] times some heat intolerance. He is a [employer] at [employer]. 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 He is a [employer]. 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 Alerting PCP to this plan--please let us know if for some reason you would like us to continue following this pt or you ahve any questions. /sarwat/ JAMES GOULD MD PHYSICIAN Signed: 07/25/2023 19:50 Receipt Acknowledged By: * AWAITING SIGNATURE * KATELYN PATTON RAUL A [facility] Jul 24, 2023 08:37 AM INTERNAL MEDICINE OUTPATIENT NOTE: LOCAL TITLE: MEDICINE CLINIC NURSING NOTE STANDARD TITLE: INTERNAL MEDICINE OUTPATIENT NOTE DATE OF NOTE: JUL 24, 2023@08:37 ENTRY DATE: JUL 24, 2023@08:38:05 AUTHOR: MARION ESTEBAN COSIGNER: URGENCY: STATUS: COMPLETED TYPE OF VISIT: [...] PRACTICAL NURSE Signed: 07/24/2023 08:39 MARION ESTEBAN [facility]
--- OUTSIDE RECORDS SUMMARY | 2024-01-02 23:06 | XMS_ITS | Encounter Summary ---
Author Name [facility] Organization [facility] [place] Address [address] [place] [address] Care Team Providers Care Plant Protection Officer Name Role Phone KATELYN PATTON Primary Care Provider Unavailabl e Selected Encounter This section includes the information on record at [place] for the Encounter. Date/Time Encounter Type Encounter Description Reason Pro vider Source Oct 01, 2023 02:15 PM Outpatient Encounter [facility]ITY [facility] CONSULT IHE Encounter Template Text not used by [place] Plan of Treatment: Future Appointments (+ 6 [...] 05:30 PM AMBULATORY - REHAB MEDICIN E [facility] Nov 26, 2023 02:00 PM AMBULATORY - NONE [facility] Nov 28, 2023 10:30 AM AMBULATORY - REHAB MEDICIN E [facility] Dec 17, 2023 10:38 AM AM[facility]ORY - NONE [facility] Dec 21, 2023 11:30 AM AMBULATORY - REHAB MEDICIN E [facility] Dec 25, 2023 12:30 PM AMBULATORY - MEDICINE [facility] Jan 02, 2024 01:30 PM AMBULATORY - REHAB MEDICIN E [facility] Jan 08, 2024 10:30 AM AMBULATORY - NONE [facility] Jan 11, 2024 05:00 PM AMBULATORY - REHAB MEDICIN E [facility] Jan 11, 2024 05:10 PM AMBULATORY - REHAB MEDICIN E [facility] Jan 16, 2024 10:00 AM AMBULATORY - REHAB MEDICIN E [facility] Jan 25, 2024 08:00 AM AMBULATORY - REHAB MEDICIN E [facility] Mar 24, 2024 11:45 AM AMBULATORY - NONE [facility] Active, Pending, and Scheduled Orders This section includes a listing of several types of active, pending, and scheduled orders, including clinic medications orders, diagnostic test orders, procedure orders and consult orders; where the start date of the order is 45 days before the date of the Encounter or 45 days after the date of theEncounter. The data comes from all [place] treatment facilities. Test Date/Time Test Type Test Details Facility Name Oct 01, 2023 08:04 PM Consult Order [facility] Cons Water Purifier's Choice [facility] Social History: Smoking Status (Most current) and Tobacco Use (All prior to encounter date) This section includes the most current, and the historical, smoking and tobacco- related health factors from the [place] facility where the Encounter took place. Current Smoking Status This section includes the most current smoking, or tobacco-related health factor, from the DE facility where the Encounter took place. Date/Time Current Smoking Status Comment Michelle macario Feb 07, 2017 09:25 AM LIFETIME NON-TOBACCO USER [facility] Tobacco Use History This section includes a history of the smoking, or tobacco-related health factors, that were collected on or before the date of the Encounter. The data comes from the DE facility where the Encounter took place. Date/Time Smoking Status/Tobacco Use Comment F acility Aug 28, 2011 10:21 AM LIFETIME NON-TOBACCO USER [facility] Radiology Reports: +/- 30 days of [...] the Encounter. The data comes from all [place] treatment facilities. 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 Sammie Topete LAST CREATININE 1.4 [...] of findings. VERIFIED BY: / *ELECTRONICALLY FILED* [facility] Encounter Notes: All associated encounter notes [...] STATUS: COMPLETED RFS was received from [facility] requesting new authorization for continuation of care. Provider, Elenita Naqvi Most recent referral expires/d on 2023-11-03 AYANNA for new consult to start after this date 2023-11-03 Please see RFS and notes uploaded to - [facility] Consult # [id number] RFS and records uploaded to [facility] note dated 09/24/23 Place new consult if clinically indicated, thank you. /sarwat/ Lorelei Estevez MSN, RN RN Associate Professor Of Church Music Signed: 10/01/2023 14:25 Receipt Acknowledged By: 10/01/2023 20:06 /sarwat/ MICHAEL PAINTING, UI PROGRAMMER UI PROGRAMMER, [facility] TRACK REPAIR LABORER, ENTERPRISE SALES PERSON LORELEI ESTEVEZ [facility]
--- OUTSIDE RECORDS SUMMARY | 2024-01-02 23:08 | XMS_ITS | Clinical Summary ---
Author Organization [employer] Address [address] [place] [address] Care Team Providers Care Butter Production Supervisor Name Role Phone Unavailable Primary Care Provider Unavailabl e Source Comments You are receiving this document as you are listed as the primary care provider,follow-up provider, or the patient has been referred to you for consultation.This is in compliance with the Medicare and[facility] Cent[facility] EHR Incentive Program,which states Providers who transition their patient to another setting of careor provider of care or refers their patient to another provider of care shouldprovide summary care record for each transition of care or referral. [employer] Allergies No known active allergies Medications Medication [...] Type Department Care Team Description 10/11/2023 Refill [place] [address] [place] [address]. [place] [address] Raul Panchal MBBS Refill (liothyronine (CYTOMEL) 5 MCG tablet [Pharmacy Med Name: Liothyronine Sodium Oral Tablet 5 MCG]) 10/03/2023 E-Visit [place] [address] [place] [address]. [place] [address] Mychart, Generic Provider 10/02/2023 Refill [place] [address] [place] [address]. [place] [address] Raul Panchal MBBS Refill (levothyroxine (SYNTHROID) 100 [...]
--- OUTSIDE RECORDS SUMMARY | 2024-01-02 23:08 | XMS_ITS | Encounter Summary ---
Author Organization [facility] Address [address] [place] [address] Care Team Providers Care Elevated Work Platform Operator Name Role Phone Unavailable Primary Care Provider Unavailabl e Encounter Details Date Type Department Care Team (Late st Contact Info) Description 10/03/2023 E-Visit [facility] [address] Endocrinology [address] [facility] [place] [address] Mychart, [place] [address] Social History Tobacco Use Types Packs/Day Years [...]
--- OUTSIDE RECORDS SUMMARY | 2024-01-02 23:08 | XMS_ITS | Clinical Summary ---
Author Organization [facility] Address [place] [address] Care Team Providers Care Corn Cooker Name Role Phone [place], [place] Primary Care Provider [phone] Allergies Active Allergy Reactions Criticality Noted Date [...] (09/05/2022): Chemo and radiation completed in 2014 Encounters Date Type Department Care Team Description 12/18/2023 4:00 PM NUCLEAR WASTE PROCESS OPERATOR Ancillary Procedure [facility] [address] [place] [address] 12/17/2023 Office Visit [facility] [address] [facility] [address] [facility] [address] [place] [address] Colt Wagoner MBBS Telehealth ([facility]) 12/16/2023 Office Visit [facility] [address] [facility] [address] [facility] [address] [place] [address] Colt Wagoner MBBS Telehealth ([facility]) from Last 3 Months Immunizations Name Administration Dates Next Due Adenovirus, Unspecified 03/18/1997 Anthrax Vaccine 03/19/2014, 1,04/08/2008,10/24,10/11/2007,09/19/2007 COVID-19 vaccine ([employer] NTDriveHQ 30mcg/0.3mL) YARITZA ENG 11/29/2020,02/25/2020,01/30/2020 Hepatitis A (Adult) 03/11/2000,10/25/1997 Hepatitis B [...] 77 09/05/2022 12:54 PM CDT Temperature 36.4 C (97.5 F) 07/02/2021 10:43 AM CDT Respiratory Rate 18 07/02/2021 10:4 [...] 09/05/2022, 03/27/19 14 Tetanus booster 09/05/2032 09/05/2022, 0309/2007, 04/20/2007, Additional history exists Tdap Completed 04/20/2007 Pneumococcal series for age 6-64 Aged Out 12/17/2014, 03/19/2014 No longer eligibl e based on patient's age to complete this topic HIV for age 15-65 Completed 09/05/2022 Hepatitis C screening for age 18-79 Completed 09/05/2022 Procedures Procedure Name Priority Date/Time Associated Diagnosis Comments ECHO TTE COMPLETE WO CONTRAST W BUBBLE Routine 12/18/2023 4:35 PM NUCLEAR WASTE PROCESS OPERATOR Stroke (HC) SDNA-FIT EXTERNAL (COLOGUARD) Routine 09/27/2022 11:00 AM [...] Recently Relevant to Health Maintenance Results * ECHO TTE COMPLETE WO CONTRAST W BUBBLE (12/18/2023 4:35 PM NUCLEAR WASTE PROCESS OPERATOR) AORTIC VALVE MEAN PG 5 mmHg EJECTION FRACTION 78 % LVEDD 4.4 cm EJECTION FRACTION 60 - 65% Anatomical Region Laterality Modality Ultrasound 12/18/2023 3:58 PM NUCLEAR WASTE PROCESS OPERATOR Narrative 12/18/2023 4:57 PM NUCLEAR WASTE PROCESS OPERATOR ECHOCARDIOGRAM [facility] 1960 63 years Study Date: 12/18/2023 3:58:59 PM Gender: M BP: 165/103 mmHg Height: 183.00 cm BSA: 2.27 m Weight: 105.00 kg Tech: [facility] Referring MD: ALEXA TOWNSEND Site: [facility] Reading Location: [facility] Patient Location: Inpatient. Procedure: 2D w/ Bubbles, Color Doppler and Spectral Doppler. Indication for study: Stroke Cardiac Rhythm: Regular.Study quality: Technically limited. Imaging limitations: This study was subject to imaging limitations due to a prominent lung artifact. Final Impressions: 1. Technically limited exam. 2. Normal LV size, borderline wall thickness, normal global systolic function with an estimated EF of 60 - 65%. 3. Right ventricular cavity size is normal, global systolic RV function is normal. 4. No shunt seen across the interatrial septum. Comparison There are no prior studies on this patient for comparison purposes. Chamber Sizes and Function Normal left ventricular size, borderline wall thickness, normal global systolic function with an estimated EF of 60 - 65%. No resting regional wall motion abnormality visualized. Left atrial size is normal. Right ventricular cavity size is normal, global systolic RV function is normal. RV wall thickness is normal. The right atrium is normal. Right atrial volume index is 16 ml/m . Right atrial area is 15 cm . The pulmonary artery is not well visualized. The sinus of Valsalva is normal sized. The ascending aorta is normal sized. Valves, RV Pressures and Diastolic Function The aortic valve is normal in structure and trileaflet, no stenosis and no regurgitation. The mitral valve is normal in structure, trace mitral regurgitation. Normal diastolic function for age. The tricuspid valve is normal in structure. Tricuspid regurgitation is trace regurgitation. The pulmonic valve is not well visualized. Trace pulmonary regurgitation. Masses, Effusion, Shunts There is no pericardial effusion. The inferior vena cava is normal sized, respiratory size variation not well visualized. No left to right shunting was detected by limited color flow Doppler interrogation of the interatrial septum. MEASUREMENTS AND CALCULATIONS 2-D Measurements and LV Function: LVID (d) 4.4 cm LV FS% (2D) 38 % LVID (s) 2.7 cm LVOT diameter 2.4 cm IVS (d) 1.2 cm HR 74 bpm LVPW (d) 1.1 cm LA Vol index 17 ml/m2 Ao Sinus 3.8 cm RA Vol index 16 ml/m2 Asc Ao 3.7 cm RA area 15 cm LA 3.0 cm RV Max 4C (d) 3.6 cm Diastology: Mitral Tissue Doppler E Peak 0.7 m/s e', Septum 0.07 m/s A Peak 0.7 m/s e', Lateral 0.10 m/s E/A 0.9 E/e' Average 7.86 DT 252 msec Aortic Valve: Vmax 1.6 m/s MERYL (V) 4.59 cm VTI 0.33 m MERYL (I) 4.25 cm LVOT V max 1.5 m/s Max PG 10 mmHg LVOT VTI 0.30 m Mean PG 5 mmHg SV 140 ml Dim Index 0.90 SV index 62 ml/m CO 10.3 l/min CI 4.6 l/min/m Mitral Valve: MVA 3.0 cm MV P 1/2 73 msec Tricuspid Valve and estimated PA pressures: TAPSE 2.6 cm . This study was interpreted by an [facility] accredited facility. CC: HIM (med records) [facility], Med/Surg - IP [facility]. Final Procedure Note Gustabo Yoo MD - 12/18/2023 ECHOCARDIOGRAM FOZIA BROUSSARDOEPHOERSTER : 1960 63 years Study Date: 12/18/2023 3:58:59 PM Gender: M BP: 165/103 mmHg Height: 183.00 cm BSA: 2.27 m Weight: 105.00 kg Tech: [facility] Referring MD: ALEXA TOWNSEND Site: [facility] Reading Location: [facility] Patient Location: Inpatient. Procedure: 2D w/ Bubbles, Color Doppler and Spectral Doppler. Indication for study: Stroke Cardiac Rhythm: Regular.Study quality: Technically limited. Imaging limitations: This study was subject to imaging limitations due toa prominent lung artifact. Final Impressions: 1. Technically limited exam. 2. Normal LV size, borderline wall thickness, normal global systolicfunction with an estimated EF of 60 - 65%. 3. Right ventricular cavity size is normal, global systolic RV functionis normal. 4. No shunt seen across the interatrial septum. Comparison There are no prior studies on this patient for comparison purposes. Chamber Sizes and Function Normal left ventricular size, borderline wall thickness, normal globalsystolic function with an estimated EF of 60 - 65%. No resting regionalwall motion abnormality visualized. Left atrial size is normal. Rightventricular cavity size is normal, global systolic RV function is normal.RV wall thickness is normal. The right atrium is normal. Right atrialvolume index is 16 ml/m . Right atrial area is 15 cm . The pulmonaryartery is not well visualized. The sinus of Valsalva is normal sized. Theascending aorta is normal sized. Valves, RV Pressures and Diastolic Function The aortic valve is normal in structure and trileaflet, no stenosis and noregurgitation. The mitral valve is normal in structure, trace mitralregurgitation. Normal diastolic function for age. The tricuspid valve isnormal in structure. Tricuspid regurgitation is trace regurgitation. Thepulmonic valve is not well visualized. Trace pulmonary regurgitation. Masses, Effusion, Shunts There is no pericardial effusion. The inferior vena cava is normal sized,respiratory size variation not well visualized. No left to right shuntingwas detected by limited color flow Doppler interrogation of theinteratrial septum. MEASUREMENTS AND CALCULATIONS 2-D Measurements and LV Function: LVID (d) 4.4 cm LV FS% (2D) 38 % LVID (s) 2.7 cm LVOT diameter 2.4 cm IVS (d) 1.2 cm HR 74 bpm LVPW (d) 1.1 cm LA Vol index 17 ml/m2 Ao Sinus 3.8 cm RA Vol index 16 ml/m2 Asc Ao 3.7 cm RA area 15 cm LA 3.0 cm RV Max 4C (d) 3.6 cm Diastology: Mitral Tissue Doppler E Peak 0.7 m/s e', Septum 0.07 m/s A Peak 0.7 m/s e', Lateral 0.10 m/s E/A 0.9 E/e' Average 7.86 DT 252 msec Aortic Valve: Vmax 1.6 m/s MERYL (V) 4.59 cm VTI 0.33 m MERYL (I) 4.25 cm LVOT V max 1.5 m/s Max PG 10 mmHg LVOT VTI 0.30 m Mean PG 5 mmHg SV 140 ml Dim Index 0.90 SV index 62 ml/m CO 10.3 l/min CI 4.6 l/min/m Mitral Valve: MVA 3.0 cm MV P 1/2 73 msec Tricuspid Valve and estimated PA pressures: TAPSE 2.6 cm . This study was interpreted by an [facility] accredited facility. CC: HIM (med records) [facility], Med/Surg - IP [facility]. Final Provider Referring ECHO ORD * SDNA-FIT EXTERNAL (COLOGUARD) (09/27/2022 11:00 AM CDT) NONINV COLON CA DNA+OCC BLD SCRN STL-IMP Negative Negative 10/03/2022 8:22 PM CDT [facility] (CLIA #:[id number]) Comment: NEGATIVE TEST RESULT. A negative Cologuard result indicates a low likelihood that a colorectal cancer (CRC) or advanced adenoma (adenomatous polyps with more advanced pre-malignant features) is present. The chance that a person with a negative Cologuard test has a colorectal cancer is less than 1 in 1500 (negative predictive value >99.9%) or has an advanced adenoma is less than 5.3% (negative predictive value 94.7%). These data are based on a prospective cross-sectional study of 10,000 individuals at average risk for colorectal cancer who were screened with both Cologuard and colonoscopy. (Artemio Peterson. et al, N Engl J Med 2014;370(14):5533-1527) The normal value (reference range) for this assay is negative. COLOGUARD RE-SCREENING RECOMMENDATION: Periodic colorectal cancer screening is an important part of preventive healthcare for asymptomatic individuals at average risk for colorectal cancer. Following a negative Cologuard result, the [employer] Cancer Society and U.S. Multi-Society Task Force screening guidelines recommend a Cologuard re-screening interval of 3 years. References: [employer] Society Guideline for Colorectal Cancer Screening: https://www.cancer.org/cancer/dwfeo-gcdgkf-lmimkq/mldrulzbu-wdhenzbwq-uyledtu/ac s-rec ommendations.html.; Rodrigo LYNNE, Denise CR, Srinivas BarrosK, Colorectal Cancer Screening: Recommendations for Physicians and Patients from the U.S. Multi-Society Task Force on Colorectal Cancer Screening , Am J Gastroenterology 2017; 112:7308-1127. TEST DESCRIPTION: Composite algorithmic analysis of stool DNA-biomarkers with hemoglobin immunoassay. Quantitative values of individual biomarkers are not [...] screened with both Cologuard and colonoscopy. (Artemio Peterson. et al, N Engl J Med 2014;370(14):7854-3054.) Cologuard may produce a false negative or false positive result (no colorectal cancer or precancerous polyp present at colonoscopy follow up). A negative Cologuard test result does not guarantee the absence of CRC or advanced adenoma (pre-cancer). The current Cologuard screening interval is every 3 years. ([employer] Cancer Society and U.S. Multi-Society Task Force). Cologuard performance data in a 10,000 patient pivotal study using colonoscopy as the reference method can be accessed at the following location: www.DriveK/results. Additional description of the Cologuard test process, warnings and precautions can be found at www.cologuard.com. Stool specimen (specimen) (Rectum) 09/27/2022 11:00 AM CDT 09/28/2022 5:55 PM CDT Suzanna Alston DO URINE [facility] (CLIA #:[id number]) [place] [address], * LC HCV ANTIBODY RFX TO QUANT PCR (09/05/2022 1:25 PM CDT) HCV Ab Non Reactive Non Reactive 09/07/2022 12:08 PM CDT [facility] ([facility]) Blood BLOOD SPECIMEN / Unknown Venipuncture / Unknown 09/05/2022 1:25 PM CDT 09/05/2022 1:27 PM CDT [facility] (CET) - 09/07/2022 12:08 PM CDT Performed at: [address] [place] [id number] Laboratory Chemist: Kody Brewer MD, Phone: [phone] Suzanna Benjaminra [facility] Performing Organization Address City/[facility]/ZIP Co de Phone Number [facility] (CET) [address] [place] [address], * LC HIV-1/O/2, 4TH GENERATION (09/05/2022 1:25 PM CDT) HIV Scr 4th Gen Non Reactive Non Reactive 09/07/2022 10:06 PM CDT [facility] (CET) Comment: HIV Negative HIV-1/HIV-2 antibodies and HIV-1 p24 antigen were NOT detected. There is no laboratory evidence of HIV infection. Blood BLOOD SPECIMEN / Unknown Venipuncture / Unknown 09/05/2022 1:25 PM CDT 09/05/2022 1:27 PM CDT [facility] (CET) - 09/07/2022 10:06 PM CDT Performed at: [address] [place] [id number] Laboratory Chemist: Kody Brewer MD, Phone: [phone] Kourtneylis Benjaminra [facility] Performing Organization Address City/[facility]/ZIP Co de Phone Number [facility] (CET) [address] [place] [address], * LIPID PANEL W REFLEX MEASURED LDL (09/05/2022 1:25 PM CDT) CHOLESTEROL,TOTAL 195 100 - 199 mg/dL 09/06/2022 12:41 AM CDT [facility] Comment: Cholesterol, Total Reference Ranges Desirable <200 mg/dL Borderline 200-239 mg/dL High >=240 mg/dL TRIGLYCERIDES 84 <150 mg/dL 09/06/2022 12:41 AM CDT [facility] HDL CHOLESTEROL 60 >40 mg/dL 12:41 AM T [facility] NON-HDL CHOLESTEROL 135 <145 mg/dl 09/06/2022 12:41 AM CDT [facility] CHOL/HDL RATIO 3.25 <4.50 09/06/2022 12:41 AM CDT [facility] LDL CHOLESTEROL 118 <=130 mg/dL 09/06/2022 12:41 AM T [facility] VLDL CHOLESTEROL 17 <=30 mg/dL 09/06/2022 12:41 AM T [facility] PROVIDER ORDERED STATUS RANDOM 09/06/2022 12:41 AM T [facility] Blood BLOOD SPECIMEN / Unknown Venipuncture / Unknown 09/05/2022 1:25 PM CDT 09/05/2022 1:27 PM CDT Suzanna [place]ston DO CHEMISTRY [facility] [address] [place] [address], from Last 3 Months or Most Recently Relevant to Health Maintenance Care Teams Corn Cooker Relationship Specialty Start Date End Date Chrisman, [place] [address] [place] [phone] PCP - General 09/04/22
--- OUTSIDE RECORDS SUMMARY | 2024-01-02 23:08 | XMS_ITS | Encounter Summary ---
Author Organization [facility] Address [address] [place] [address] Care Team Providers Care Scratcher Name Role Phone Unavailable Primary Care Provider Unavailabl e Reason for Visit * Reason Comments Refill levothyroxine (SYNTH ROID) 100 MCG tablet [Pharmacy Med Name: Levothyroxine Sodium Oral Tablet 100 MCG] Encounter Details Date Type Department Care Team (Late st Contact Info) Description 10/02/2023 Refill [facility] [address] Endocrinology [address] [facility] [place] [address] Magi Panchal MB [address] [place] [address] Refill (levothyroxine (SYNTHROID) 100 MCG tablet [Pharmacy [...] For rx to be refilled. Rt. To electrical intern for rx refills. * Lisa Zarate RN [...] but equivalent) TSH: 1.58 mIU/L on 08/21/2022 [facility] Embedded Refills, Reference: [id number], 10/02/2023 7:44:53 PM CDT, Pool: AMELIA WOOREFJILLIAN ([id number]) documented in this encounter Plan of Treatment Not on file documented as of this encounter Visit Diagnoses Diagnosis Primary hypothyroidism (HRC) Unspecified hypothyroidism documented in this encounter
--- OUTSIDE RECORDS SUMMARY | 2024-01-02 23:09 | XMS_ITS | Clinical Summary ---
Author Organization [facility] Address [address] [place] [address] Care Team Providers Care Rail Signal Designer Name Role Phone Elsewhere, Pcp Primary Care Provider Unavailabl e Source Comments Patient records contain information from all sites at [facility]. For routine questions regarding patient records, call [phone] during business hours, M-F 8:00 AM - 5:00 PM Central Time. Record requests for emergency care only can be directed to [phone] at any time.[facility] Allergies Active Allergy Reactions Criticality Noted Date [...] (09/02/2019): Added automatically from request for surgery [id number] Infertility Male 09/02/2019 Overview (09/02/2019): Added automatically from request for surgery [id number] Hoarseness Chronic 04/24/2018 Dysphagia 04/24/2018 Other Specified [...] on file Legal Sex Male 11:26 PM TEMPLATE INSPECTOR Gender Identity Not on file Sexual Orientation Not on file Last Filed Vital Signs Vital Sign Reading Time Taken Comments Blood Pressure 121/87 04/10/2022 10:00 AM TEMPLATE INSPECTOR Pulse 68 04/10/2022 10:00 AM TEMPLATE INSPECTOR Temperature 36.7 C (98.1 F) 04/10/2022 10:00 AM TEMPLATE INSPECTOR Respiratory Rate 21 04/10/2022 10:00 AM TEMPLATE INSPECTOR Oxygen Saturation 98% 04/10/2022 10:00 AM TEMPLATE INSPECTOR Inhaled Oxygen Concentration - - Weight 105 kg (231 lb) 04/10/2022 8:27 AM TEMPLATE INSPECTOR Height 182.9 cm (6') 04/10/2022 8:27 AM TEMPLATE INSPECTOR Body Mass Index 31.33 04/10/2022 8:27 AM TEMPLATE INSPECTOR Plan of Treatment Health Maintenance Due Date Last Done Comments CT Colonography 1962 FIT 1962 HIV Screening 1960 Hepatitis C Screening 1962 T4 (Thyroxine) lab test 1962 Zoster Vaccines (1 of 2) 2012 IPV Vaccines (2 of 3 - Adult catch-up series) 04/16/2014 03/19/2014 Depression Screening (Annual PHQ-2) 02/12/2023 COVID-19 Vaccine (4 - season) 2023 11/29/2020, 02/25/2020, 01/30/2020 Influenza [...] Associated Diagnosis Comments COLONOSCOPY 04/10/2022 9:18 AM TEMPLATE INSPECTOR COMPREHENSIVE METABOLIC PANEL, S/P Routine 03/06/2022 8:15 AM TEMPLATE INSPECTOR 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 - 04/10/2022 9:18 AM CST [facility] Patient Name: Isak Retanasurinder Procedure Date: 04/10/2022 [...] bowel preparation was evaluated using the BBPS ([place] BowelPreparation Scale) with scores of: Right Colon [...] (ABNORMAL) Comprehensive Metabolic Panel (03/06/2022 8:15 AM TEMPLATE INSPECTOR) Potassium, P 4.8 3.6 - 5.2 mmol/L 03/06/2022 8:43 AM TEMPLATE INSPECTOR NPRG Sodium, P 144 135 - 145 mmol/L 03/06/2022 8:43 AM TEMPLATE INSPECTOR NPRG Chloride, P 107 98 - 107 mmol/L 03/06/2022 8:43 AM TEMPLATE INSPECTOR NPRG Bicarbonate, P 28 22 - 29 mmol/L 03/06/2022 8:43 AM TEMPLATE INSPECTOR NPRG Anion Gap, P 9 7 - 15 03/06/2022 8:43 AM TEMPLATE INSPECTOR NPRG BUN (Blood Urea Nitrogen), P 28(H) 8 - 24 mg/dL 03/06/2022 8:43 AM TEMPLATE INSPECTOR NPRG Creatinine 1.66(H) 0.74 - 1.35 mg/dL 03/06/2022 8:43 AM TEMPLATE INSPECTOR NPRG Estimated GFR (eGFR) 47(L) >=60 mL/min/BS A 03/06/2022 8:43 AM TEMPLATE INSPECTOR NPRG Comment: Estimated GFR calculated using the 2020 CKD_EPI creatinine equation. Calcium, Total, P 9.9 8.6 - 10.0 mg/dL 03/06/2022 8:43 AM TEMPLATE INSPECTOR NPRG Glucose, P 112 70 - 140 mg/dL 03/06/2022 8:43 AM TEMPLATE INSPECTOR NPRG Protein, Total, P 7.2 6.3 - 7.9 g/dL 03/06/2022 8:43 AM TEMPLATE INSPECTOR NPRG Albumin, P 4.2 3.5 - 5.0 g/dL 03/06/2022 8:43 AM TEMPLATE INSPECTOR NPRG Aspartate Aminotransferase (AST), P 35 8 - 48 U/L 03/06/2022 8:43 AM TEMPLATE INSPECTOR NPRG Alkaline Phosphatase, P 83 40 - 129 U/L 03/06/2022 8:43 AM TEMPLATE INSPECTOR NPRG Alanine Aminotransferase (ALT), P 31 7 - 55 U/L 03/06/2022 8:43 AM TEMPLATE INSPECTOR NPRG Bilirubin, Total, P 0.4 <=1.2 mg/dL 03/06/2022 8:43 AM TEMPLATE INSPECTOR NPRG Blood (Blood, Venous) 03/06/2022 8:15 AM TEMPLATE INSPECTOR 03/06/2022 8:18 AM TEMPLATE INSPECTOR us Elenita Nance M.D. LAB BLOOD ADD-ON Final Result [facility] [address] [place] [address], [facility] NPRG [facility] [address] [place] [address] from Last 3 Months or Most Recently Relevant to Health Maintenance Insurance Care Teams Rail Signal Designer Relationship Specialty Start Date End Date Elsewhere, Pcp PCP - General Internal Medicine 04/10/22
--- OUTSIDE RECORDS SUMMARY | 2024-01-02 23:09 | XMS_ITS ---
Author Organization [facility] Address [address] [place] [address] Care Team Providers Care Supervisor Finishing Department Name Role Phone Elsewhere, Pcp Primary Care Provider Unavailabl e Active Problems Problem Noted Date Diagnosed Date Cyst Epididymus 05/03/2020 Benign Prostatic Hyperplasia Without Obstruction 05/03/2020 Hydrocele 05/03/2020 Pain Hip Right 09/02/2019 Overview (09/02/2019): Added automatically from request for surgery [id number] Infertility Male 09/02/2019 Overview (09/02/2019): Added automatically from request for surgery [id number] Hoarseness Chronic 04/24/2018 Dysphagia 04/24/2018 Other Specified Hypothyroidism 01/22/2017 Overview (01/22/2017): Iatrogenic, secondary to EBRT Elevated Creatinine 01/22/2017 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 Past Plans No past plan information found. Radiation Treatments * No radiation treatments are documented for this patient in [facility]. Treatments may have been administered in another system. Lifetime Dose Tracking * Chemical Lifetime Dose Automatic Entry Manual Entr y Radiation 0.151 mGy 0.151 mGy 0 mGy Fluoro Time 2 minutes 2 minutes 0 minutes
--- OUTSIDE RECORDS SUMMARY | 2024-01-02 23:09 | XMS_ITS | Referral Summary ---
Author Organization [facility] Address [address] [place] [address] Care Team Providers Care Custom Stock Maker Name Role Phone Elsewhere, Pcp Primary Care Provider Unavailabl e Source Comments Patient records contain information from all sites at [facility]. For routine questions regarding patient records, call [phone] during business hours, M-F 8:00 AM - 5:00 PM Central Time. Record requests for emergency care only can be directed to [phone] at any time.[facility] Allergies Active Allergy Reactions Criticality Noted Date [...] (09/02/2019): Added automatically from request for surgery [id number] Infertility Male 09/02/2019 Overview (09/02/2019): Added automatically from request for surgery [id number] Hoarseness Chronic 04/24/2018 Dysphagia 04/24/2018 Other Specified [...] on file Legal Sex Male 11:26 PM BUFF WHEEL FABRICATOR Gender Identity Not on file Sexual Orientation Not on file Last Filed Vital Signs Vital Sign Reading Time Taken Comments Blood Pressure 121/87 04/10/2022 10:00 AM BUFF WHEEL FABRICATOR Pulse 68 04/10/2022 10:00 AM BUFF WHEEL FABRICATOR Temperature 36.7 C (98.1 F) 04/10/2022 10:00 AM BUFF WHEEL FABRICATOR Respiratory Rate 21 04/10/2022 10:00 AM BUFF WHEEL FABRICATOR Oxygen Saturation 98% 04/10/2022 10:00 AM BUFF WHEEL FABRICATOR Inhaled Oxygen Concentration - - Weight 105 kg (231 lb) 04/10/2022 8:27 AM BUFF WHEEL FABRICATOR Height 182.9 cm (6') 04/10/2022 8:27 AM BUFF WHEEL FABRICATOR Body Mass Index 31.33 04/10/2022 8:27 AM BUFF WHEEL FABRICATOR Plan of Treatment Not on file Procedures Procedure Name Priority Date/Time Associated Diagnosis Comments COLONOSCOPY 04/10/2022 9:18 AM BUFF WHEEL FABRICATOR COMPREHENSIVE METABOLIC PANEL, S/P Routine 03/06/2022 8:15 AM BUFF WHEEL FABRICATOR 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 - 04/10/2022 9:18 AM CST [facility] Patient Name: Isak Mckeon Procedure Date: [...] bowel preparation was evaluated using the BBPS ([place] BowelPreparation Scale) with scores of: Right Colon [...] (ABNORMAL) Comprehensive Metabolic Panel (03/06/2022 8:15 AM BUFF WHEEL FABRICATOR) Potassium, P 4.8 3.6 - 5.2 mmol/L 03/06/2022 8:43 AM BUFF WHEEL FABRICATOR NPRG Sodium, P 144 135 - 145 mmol/L 03/06/2022 8:43 AM BUFF WHEEL FABRICATOR NPRG Chloride, P 107 98 - 107 mmol/L 03/06/2022 8:43 AM BUFF WHEEL FABRICATOR NPRG Bicarbonate, P 28 22 - 29 mmol/L 03/06/2022 8:43 AM BUFF WHEEL FABRICATOR NPRG Anion Gap, P 9 7 - 15 03/06/2022 8:43 AM BUFF WHEEL FABRICATOR NPRG BUN (Blood Urea Nitrogen), P 28(H) 8 - 24 mg/dL 03/06/2022 8:43 AM BUFF WHEEL FABRICATOR NPRG Creatinine 1.66(H) 0.74 - 1.35 mg/dL 03/06/2022 8:43 AM BUFF WHEEL FABRICATOR NPRG Estimated GFR (eGFR) 47(L) >=60 mL/min/BS A 03/06/2022 8:43 AM BUFF WHEEL FABRICATOR NPRG Comment: Estimated GFR calculated using the 2020 CKD_EPI creatinine equation. Calcium, Total, P 9.9 8.6 - 10.0 mg/dL 03/06/2022 8:43 AM BUFF WHEEL FABRICATOR NPRG Glucose, P 112 70 - 140 mg/dL 03/06/2022 8:43 AM BUFF WHEEL FABRICATOR NPRG Protein, Total, P 7.2 6.3 - 7.9 g/dL 03/06/2022 8:43 AM BUFF WHEEL FABRICATOR NPRG Albumin, P 4.2 3.5 - 5.0 g/dL 03/06/2022 8:43 AM BUFF WHEEL FABRICATOR NPRG Aspartate Aminotransferase (AST), P 35 8 - 48 U/L 03/06/2022 8:43 AM BUFF WHEEL FABRICATOR NPRG Alkaline Phosphatase, P 83 40 - 129 U/L 03/06/2022 8:43 AM BUFF WHEEL FABRICATOR NPRG Alanine Aminotransferase (ALT), P 31 7 - 55 U/L 03/06/2022 8:43 AM BUFF WHEEL FABRICATOR NPRG Bilirubin, Total, P 0.4 <=1.2 mg/dL 03/06/2022 8:43 AM BUFF WHEEL FABRICATOR NPRG Blood (Blood, Venous) 03/06/2022 8:15 AM BUFF WHEEL FABRICATOR 03/06/2022 8:18 AM BUFF WHEEL FABRICATOR us Elenita Nance M.D. LAB BLOOD ADD-ON Final Result [facility] [address] [place] [address], [facility] NPRG [facility] [place] [address] [place] [address] from Last 3 Months or Most Recently Relevant to Health Maintenance Insurance [employer] [id number] Care Teams Custom Stock Maker Relationship Specialty Start Date End Date Elsewhere, Pcp PCP - General Internal Medicine 04/10/22
--- OUTSIDE RECORDS SUMMARY | 2024-01-02 23:09 | XMS_ITS ---
Author Organization [facility] Address [address] [place] [address] Care Team Providers Care Pediatric Hospitalist Name Role Phone Unavailable Unavailable Unavailable Surgery Details Not on file Complications Check Surgery Details section. Procedure Estimated Blood Loss Check Surgery Details section. Procedure Findings Check Surgery Details section. Procedure Specimens Taken Check Surgery Details section.
== END 2024-01-02 23:44 | disposition home or self-care (01) ==
PROVIDERS: Emergency Provider Family Medicine; PCP Nurse Practitioner Gerontology
DX: H53.9 Unspecified visual disturbance (principal)
CPT/HCPCS: 70450; 99284